=== PATIENT | female | born 1950 | race Caucasian/White ===

== ENCOUNTER 2023-03-24 12:54 | Outpatient (OUT) | payer OTHER, SELFPAY ==
--- NOTE | 2023-03-24 | MM_ITS ---
Patient Name: LEIA EWING MR#: [id number] : 1950 Exam Date: 03/24/2023 Ordering Doctor: DR ASIA ROBBINS . RADIOLOGY REPORT PROCEDURE: MM SCREENING MAMMO BI COMPARISON: MG MAMM SCREEN ALONDRA W CAD, 08/12/2017. INDICATIONS: screening Calculator Name NCI Breast Cancer Risk Assessment Tool 5 Year Breast Cancer Risk 1.40% Lifetime Breast Cancer Risk 3.30% Personal Breast Cancer No Personal Ovarian Cancer No Treatments Excision Family Cancers Grandfather-paternal with acute myel.leukemia cancer at age 80. LOCATION: [facility] BREAST COMPOSITION: Scattered areas fibroglandular density. FINDINGS: DIAGNOSTIC CATEGORY 2--BENIGN FINDING: RIGHT BREAST: No significant suspicious finding. Scattered benign-appearing calcifications are present. No significant change has occurred. LEFT BREAST: No significant suspicious finding. Scattered benign-appearing calcifications are present. No significant change has occurred. RECOMMENDATIONS: ROUTINE MAMMOGRAM AND CLINICAL EVALUATION IN 12 MONTHS. PLEASE NOTE: A NORMAL MAMMOGRAM DOES NOT EXCLUDE THE POSSIBILITY OF BREAST CANCER. A CLINICALLY SUSPICIOUS PALPABLE LUMP SHOULD BE BIOPSIED. Dictated by: Martin Win M.D. on 03/24/2023 at 15:04 Approved by: Martin Win M.D. on 03/24/2023 at 15:05
== END 2023-03-24 12:55 | disposition home or self-care (01) ==
LOC: MAMMO 12:54
PROVIDERS: PCP Family Medicine; Visit Provider Family Medicine
DX: Z12.31 Encounter for screening mammogram for malignant neoplasm of breast (principal); Z80.6 Family history of leukemia
CPT/HCPCS: 77067

== ENCOUNTER 2023-07-12 10:48 | Inpatient (IN) | payer OTHER, SELFPAY ==
[2023-07-12] VITALS (22 sets, daily range): BP systolic 111–150; BP diastolic 55–93; PULSE 86–160; RESP 12–27; TEMP 36.6–37.2; O2SAT 95–100; BMI 36.2
--- OUTSIDE RECORDS SUMMARY | 2023-07-12 10:55 | XMS_ITS | CCD ---
Author Organization [facility] Care Team Providers Care Senior Quantity Surveyor Name Role Phone MD Dario Forman Admit Provider MD Dario Forman Attending Provider [phone] MD Xavier Robbins Primary Care Provider DR XAVIER ROBBINS Primary Care Unavailable FABIANA BECKER Admitting Unavailable FABIANA BECKER Attending Unavailable CHLOÉ DARBY Consulting Unavailable FABIANA BECKER Consulting Unavailable PROVIDER, UNKNOWN Attending Unavailable PROVIDER, UNKNOWN Admitting Unavailable Xavier Robbins Unavailable Unavailable Unavailable Xavier Robbins Primary Care Unavailable Dario Forman Attending Unavailable Dario Forman Admitting Unavailable Dr. Xavier Robbins Primary Care Unava ilmaynor Robbins, Dr. Xavier Lim Primary Care Unava Angela Brandon Attending Unavailable Angela Landry Referring Unavailable Yoselin, Dr. Xavier Lim Primary Care Unava ilAngela Marrero Attending Unavailable Angela Landry Referring Unavailable Yoselin, Dr. Xavier Lim Primary Care Unava ilJanette Alvarez Unavailable Xavier Robbins MD Primary Care Provider ANGELA LANDRY Attending Unavailable XAVIER ROBBINS Primary Care Unavailab MARK Springer Attending Unavailable XAVIER ROBBINS Attending Unavailable XAVIER ROBBINS Attending Unavailable Allergies Allergy Classification Reported Allergen(s) Allergy Type Date of Onset Reaction(s) Facility (3 sources) Neomycin; Translations: [Neomycin] Drug Allergy 2 Unknown Reaction [facility] (8 sources) nickel; Translations: [Nickel] Drug Allergy 3 rash, Swelling [facility] (3 sources) erythromycin base; Translations: [Erythromycin Base] Allergy to substance 2 Unknown Reaction [facility] (4 sources) Azithromycin; Translations: [Azithromycin TABS] Drug Allergy 3 [facility] (1 source) Erythromycin Drug Allergy hives [facility] [employer] Other (1 source) Dasak-Upcsj-Xsil myx-Pramoxine Drug allergy rash,itching [facility] [employer] Other (1 source) Azithromycin; Translations: [AZITHROMYCIN] Drug Allergy 3 [facility] 3 Repository Medications Current Medications Medication Drug Class(es) Dates Sig (Normalized) Sig (Original) [id number] 200 actuat albuterol 0.09 mg/actuat metered dose inhaler (6 sources) beta2-Adrenergic Agonist take 1 puff(s) by inhalation every four hours albuterol 90 mcg/actuation inhaler Inhale 1 puff every 4 hours if needed. 0 Active take 3 mL by inhalat ion every six hours as needed Albuterol Sulfate 0.63 MG/3ML 3 ml as needed Inhalation every 6 hrs uses PRN, J41.0 Not-Taking Albuterol Sulfat e HFA 108 (90 Base) MCG/ACT 2 puffs as needed Inhalation 4 x day prn Not-Taking Aspir-81 (1 source) Aspir-81 *please review for potential _update for e-prescription and drug interaction check* 1 every other day Active aspirin 81 mg chewable tablet (6 sources) Platelet Aggregation Inhibitor, Nonsteroidal Anti-inflammatory Drug Start: 03-14-2022 End: 02-18-2023 aspirin 81 mg chewable tablet Chew 1 tablet (81 mg) once daily. CHEW AND SWALLOW 0 03/14/2022 02/18/2023 Discontinued (Other) take 1 tablet by mouth once jeri y aspirin 81 mg EC tablet Take 1 tablet (81 mg) by mouth once daily. 0 Active atorvastatin 80 mg oral tablet (6 sources) HMG-CoA Reductase Inhibitor Start: 03-14-2022 take 80 mg by mouth once daily in the evening Atorvastatin Active 80 MG PO Every evening March 14, 2022 12:00am calcium carbonate 1250 mg oral tablet (1 source) take 1 tablet by mouth once daily calcium carbonate (Oscal) 500 mg calcium (1,250 mg) tablet Take 1 tablet (1,250 mg) by mouth once daily. 0 Active celecoxib 200 mg oral capsule (5 sources) Nonsteroidal Anti-inflammatory Drug celecoxib (CeleBREX) 200 mg capsule Take by mouth twice a day. With food 0 Active take 1 capsule by [facility] every twenty-four hours Celecoxib 200 MG 1 capsule with food Orally Once a day Active gabapentin 600 mg oral tablet (6 sources) Anti-epileptic Agent Start: 03-13-2022 take 600 mg by mouth at bedtime Gabapentin Active 600 MG PO Bedtime March 13, 2022 12:00am losartan potassium 100 mg oral tablet (6 sources) Angiotensin 2 Receptor Caitlin Start: 08-06-2017 take 100 mg by mouth once daily Losartan Active 100 MG PO Daily March 13, 2022 12:00am metoprolol tartrate 25 mg oral tablet (6 sources) beta-Adrenergic Caitlin Start: 03-14-2022 take 25 mg by mouth twice daily Metoprolol Tartrate Active 25 MG PO Twice daily 60 March 14, 2022 12:00am take 1 capsule by mouth once irish ly Metoprolol Succinate 25 MG 1 capsule Orally Once a day Active montelukast 10 mg oral tablet (6 sources) Leukotriene Receptor Antagonist Start: 03-13-2022 take 10 mg by mouth once daily Montelukast Active 10 MG PO Daily March 13, 2022 12:00am multivitamin tablet (1 source) take 1 tablet by mouth once daily multivitamin tablet Take 1 tablet by mouth once daily. 0 Active Multivitamin Women 50+ - (1 source) Multivitamin Wom en 50+ - Orally Active mupirocin 0.02 mg/mg topical ointment (1 source) RNA Synthetase Inhibitor Antibacterial Start: 12-27-2022 Mupirocin 2 % 1 application Externally Three times a day for 7 days Dec, Active nitroglycerin 0.4 mg sublingual tablet (6 sources) Nitrate Vasodilator Start: 03-14-2022 Nitroglycerin Active 0.4 MG SUBLINGUAL Q5M 30 March 14, 2022 12:00am Nitroglycerin 0. 4 MG as directed Sublingual Active omeprazole 40 mg delayed release oral capsule (1 source) Proton Pump Inhibitor take 1 capsule by mouth once daily Omeprazole 40 MG 1 capsule 30 minutes before morning meal Orally Once a day Active oxybutynin chloride 5 mg oral tablet (6 sources) Cholinergic Muscarinic Antagonist Start: 11-24-202 2 take 5 mg by mouth twice daily Oxybutynin Chloride Active 5 MG PO Twice daily March 13, 2022 12:00am sertraline 100 mg oral tablet (5 sources) Serotonin Reuptake Inhibitor take 1 tablet by mouth once daily sertraline (Zoloft) 100 mg tablet Take 1 tablet (100 mg) by mouth once daily. 0 Active ticagrelor 90 mg oral tablet (6 sources) Start: 2 End: 3 take 1 tablet by mouth twice daily Ticagrelor (Brilinta) 90 mg Tablet Active 90 MG PO Twice daily 60 30 March 14, 2022 12:00am Vitamin C 500 MG (1 source) take 1 tablet by mouth once daily Vitamin C 500 MG 1 tablet Orally Once a day Active Completed/Discontinued Medications Medication Drug Class(es) Dates Sig (Normalized) Sig (Original) amoxicillin 500 mg oral capsule (1 source) Penicillin-class Antibacterial Start: 03-07-2019 Amoxicillin 500 MG 4 capsules one time, take 45 min-1 hr prior to planned dental procedure Orally Once a day for 1 day(s) Feb, Not-Taking docusate sodium 100 mg oral capsule (1 source) take 1 capsule by mouth once daily at bedtime as needed Colace 100 MG take 1 capsule by oral route every day at bedtime as needed Orally Not-Taking ferrous sulfate 325 mg oral tablet (1 source) take 1 tablet by mouth every twenty-four hours Feosol 200 (65 Fe) MG 1 tablet Orally daily Not-Taking Handicap Placard 1 year 1 year (1 source) Start: 01-05-2017 Handicap Placard 1 year 1 year 1 misc daily for 1 year *please review for potential _update for e-prescription and drug interaction check* M54.5 Low Back Pain Dec, Not-Taking Handicap Placard 5 year 5 year (1 source) Start: 10-04-2019 Handicap Placard 5 year 5 year 1 misc daily for 5 year *please review for potential _update for e-prescription and drug interaction check* Sep, Not-Taking Handicap Plaquard 1 (1 source) Start: 03-07-2019 Handicap Plaquard 1 use 1 placard as directed for 6 months for 180 days *please review for potential _update for e-prescription and drug interaction check* Feb, Not-Taking ipratropium bromide 0.2 mg/ml inhalation solution (1 source) Anticholinergic Start: 04-18-2019 take 2.5 mL by inhalation every eight hours as needed Ipratropium [place] 0.02 % 2.5 ml Inhalation every 8 hrs as needed using [facility] [id number], Rx Bin [id number], [id number] Membber ID [id number] Mar, Not-Taking meloxicam 15 mg oral tablet (1 source) Nonsteroidal Anti-inflammatory Drug take 1 tablet by mouth every twenty-four hours Meloxicam 15 MG 1 tablet Orally Once a day for 90 days Not-Taking Niacin (1 source) Nicotinic Acid Start: 02-12-2018 Niacin SR 500 mg as directed daily *please review for potential _update for e-prescription and drug interaction check* 3 daily Jan, Not-Taking Problems Active Problems Problem Classification Problem Date Documented Date Episodic/Chronic Acute myocardial infarction (3 sources) Myocardial infarction; Translations: [ST elevation (STEMI) myocardial infarction involving left circumflex coronary artery] Onset: 03-18-2022 03-13-2022 Chronic Asthma (2 sources) Unspecified asthma, uncomplicated; Translations: [Mild intermittent asthma] Onset: 03-18-2022 Chronic Chronic kidney disease (1 source) Chronic kidney disease stage 2; Translations: [Chronic kidney disease, stage 2 (mild)] Chronic Chronic obstructive pulmonary disease and bronchiectasis (1 source) Simple chronic bronchitis; Translations: [Simple chronic bronchitis] Chronic Coronary atherosclerosis and other heart disease (14 sources) Coronary arteriosclerosis; Translations: [Coronary atherosclerosis of unspecified type of vessel, [place] or graft] Onset: 02-18-2023 02-18-2023 Chronic Coronary atherosclerosis and other heart disease (3 sources) Stented coronary artery; Translations: [Presence of coronary angioplasty implant and graft] Onset: 02-18-2023 03-13-2022 Episodic Disorders of lipid metabolism (5 sources) Hyperlipidemia; Translations: [Other and unspecified hyperlipidemia] Onset: 02-18-2023 02-18-2023 Chronic E Codes: Natural/environment (1 source) Bitten or stung by nonvenomous insect and other nonvenomous arthropods, initial encounter Episodic Essential hypertension (7 sources) Hypertensive disorder; Translations: [Essential (primary) hypertension] Onset: 03-18-2022 03-13-2022 Chronic Genitourinary symptoms and ill-defined conditions (1 source) Urge incontinence of urine; Translations: [Urge incontinence] Chronic Mood disorders (1 source) Recurrent major depression in partial remission; Translations: [Major depressive disorder, recurrent, in partial remission] Chronic Nonspecific chest pain (3 sources) Chest pain, unspecified; Translations: [CHEST PAIN UNSPECIFIED] Onset: 03-13-2022 Episodic Osteoarthritis (2 sources) Inflammation of joints of bilateral shoulder regions; Translations: [Primary osteoarthritis, right shoulder] Chronic Other aftercare (1 source) 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; Translations: [YARDMASTER CURRENT USE OF ASPIRIN] Onset: 03-18-2022 Episodic Other aftercare (1 source) Other m[facility]p (current) drug therapy; Translations: [OTH YARDMASTER CURRENT DRUG THERAPY] Onset: 03-18-2022 Episodic Other connective tissue disease (2 sources) History of repair of hip joint; Translations: [Presence of right artificial hip joint] Chronic Other hereditary and degenerative nervous system conditions (1 source) Restless legs; Translations: [Restless legs syndrome] Chronic Other lower respiratory disease (2 sources) Dyspnea on exertion; Translations: [Shortness of breath] Onset: 02-18-2023 02-18-2023 Episodic Other lower respiratory disease (2 sources) Shortness of breath; Translations: [Shortness of breath] Onset: 02-18-2023 Episodic Other nervous system disorders (1 source) Difficulty walking; Translations: [Difficulty in walking, not elsewhere classified] Chronic Other non-traumatic joint disorders (1 source) Chronic pain of right upper limb; Translations: [Pain in right shoulder] Episodic Other nutritional; endocrine; and metabolic disorders (4 sources) Obesity; Translations: [Obesity, unspecified] Onset: 02-18-2023 02-18-2023 Chronic Other nutritional; endocrine; and metabolic disorders (1 source) Morbid obesity; Translations: [Morbid (severe) obesity due to excess calories] Chronic Other nutritional; endocrine; and metabolic disorders (1 source) Obesity caused by energy imbalance; Translations: [Other obesity due to excess calories] 02-18-2023 Chronic Other nutritional; endocrine; and metabolic disorders (2 sources) Other obesity due to excess calories; Translations: [Other obesity due to excess calories] Onset: 02-18-2023 Chronic Other nutritional; endocrine; and metabolic disorders (2 sources) Body mass index (BMI) 36.0-36.9, adult; Translations: [Body mass index (BMI) 36.0-36.9, adult] Onset: 02-18-2023 Chronic Other upper respiratory disease (1 source) Allergic rhinitis due to pollen; Translations: [Allergic rhinitis due to pollen] Chronic Residual codes; unclassified (1 source) Walking aid use - finding; Translations: [Dependence on other enabling machines and devices] Chronic Residual codes; unclassified (1 source) Do not resuscitate; Translations: [DO NOT RESUSCITATE] Onset: 03-18-2022 Episodic Spondylosis; intervertebral disc disorders; other back problems (3 sources) Disorder of lumbar disc; Translations: [Other intervertebral disc displacement, lumbar region] Chronic Unclassified (1 source) ST elevation (STEMI) myocardial infarction involving left circumflex coronary artery; Translations: [ST elevation (STEMI) myocardial infarction involving left circumflex coronary artery] Onset: 03-13-2022 Past or Other Problems Problem Classification Problem Date Documented Da te Episodic/Chronic Unclassified (3 sources) Never smoked tobacco; Translations: [Never a smoker] Unclassified (1 source) Onset: 02-18-2023 02-18-2023 Results Test Name Value Interpretation Reference Range Facility Office Visit (Cardiology)on 08-20-2022 Follow-up visit Diagnoses/Problems Assessed ASHD (arteriosclerotic heart disease) (414.00) (I25.10) Status post insertion of drug eluting coronary artery stent (V45.82) (Z95.5) History of myocardial infarction (412) (I25.2) Hyperlipidemia (272.4) (E78.5) Hypertension (401.9) (I10) Never a smoker Class 2 obesity with body mass index (BMI) of 36.0 to 36.9 in adult (278.00,V85.36) (E66.9,Z68.36) Orders Class 2 obesity with body mass index (BMI) of 36.0 to 36.9 in adult Healthy Weight Tips; Status:Complete - Retrospective Authorization; Done: 20Aug2022 Some eating tips that can help you lose weight.; Status:Complete - Retrospective Authorization; Done: 20Aug2022 SocHx: Never a smoker Tobacco Use Screening; Status:Complete; Done: [id number] Patient Instructions Please bring all medicines, vitamins, and herbal supplements with you when you come to the office. Prescriptions will not be filled unless you are compliant with your follow up appointments or have a follow up appointment scheduled as per instruction of your physician. Refills should be requested at the time of your visit. Follow up in [6 ] months Chief Complaint LEIA EWING is being seen for a 6 month follow-up of. 71-year-old female returns for follow-up and doing well she has no cardiovascular complaints. She denies angina or nitrate usage or recurrent hospitalizations. She sustained inferior UT in February 2022 around [facility], underwent primary PCI of the third OM branch with drug-eluting stent without complications. She remains on appropriate guideline directed medical therapies as reviewed. She has underlying obesity, mild ambulatory disability and ambulates with cane but with no falls. She remains independent She has no hospitalizations or heart failure or syncope. Recommendations, continue current therapies follow-up in 6 months Surgical History Problems History of Complete colonoscopy 2019 History of Hip replacement Current Meds Medication NameInstruction Albuterol Sulfate HFA 108 (90 Base) MCG/ACT Inhalation Aerosol SolutionINHALE 1 PUFF EVERY 4 HOURS NEEDED. Aspirin EC 81 MG Oral Tablet Delayed ReleaseTAKE 1 TABLET DAILY. Atorvastatin Calcium 80 MG Oral TabletTAKE 1 TABLET DAILY. Brilinta 90 MG Oral TabletTAKE 1 TABLET TWICE DAILY. Celecoxib 200 MG Oral CapsuleTAKE 1 CAPSULE TWICE DAILY WITH FOOD. Gabapentin 600 MG Oral TabletTAKE 1 TABLET AT BEDTIME. Losartan Potassium 100 MG Oral TabletTAKE 1 TABLET DAILY. Metoprolol Tartrate 25 MG Oral TabletTAKE 1 TABLET TWICE DAILY. Montelukast Sodium 10 MG Oral TabletTAKE 1 TABLET AT BEDTIME. Nitroglycerin 0.[address] 1 TABLET UNDER THE TONGUE EVERY 5 MINUTES FOR UP TO 3 DOSES NEEDED FOR CHEST PAIN.CALL 911 IF PAIN PERSISTS. Oxybutynin Chloride 5 MG Oral TabletTake 1 tablet twice daily Sertraline HCl - 100 MG Oral TabletTAKE 1 TABLET DAILY. Allergies Medication Azithromycin TABS Allergy; hives; Recorded By: Gavin Rose; 03/27/2022 8:49:28 AM NonMedication Nickel Recorded By: Arline Delong; 08/20/2022 11:16:45 AM Social History Problems Caffeine use (V49.89) (Z78.9) Never a smoker No illicit drug use Social alcohol use (V49.89) (Z78.9) Review of Systems Constitutional: not feeling tired. Cardiovascular: no intermittent leg claudication and as noted in HPI. Respiratory: no cough and no shortness of breath. Gastrointestinal: no change in bowel habits and no blood in stools. Integumentary: no skin rashes. Neurological: no seizures and no frequent falls. All other systems have been reviewed and are negative for complaint. Vitals Vital Signs Recorded: 20Aug2022 11:17AM Heart Rate68, L Radial [id number], LUE, Sitting [id number], LUE, Sitting Height5 ft 9 in [id number] lb BMI Jfkiziliyp18.18 kg/m2 BSA Calculated2.25 Tobacco Useb) No PHQ-2 Patient Declined/Screening not indicatedYes Falls Screening (Age 18+)a) No falls within the last year Physical Exam Constitutional: alert and in no acute distress. Neck: neck is supple, symmetric, trachea midline, no masses and no thyromegaly . Pulmonary: no increased work of breathing or signs of respiratory distress and lungs clear to auscultation. Cardiovascular: carotid pulses 2+ bilaterally with no bruit , JVP was normal, no thrills , regular rhythm, normal S1 and S2, no murmurs , pedal pulses 2+ bilaterally and no edema . Abdomen: abdomen non-tender, no masses and no hepatomegaly . Skin: skin warm and dry, normal skin turgor . Psychiatric judgment and insight is normal and oriented to person, place and time . Signatures Electronically signed by : Angela Landry DO; Aug 20 2022 12:32PM EST (Author) Normal [facility] Tobacco Screening.on 023 Fall risk assessment a) No falls within the last year -[facility] [address] DO Work Phone: Tobacco use status [facility] b) No M [facility] [address] DO Work Phone: Tobacco Screening. Yes [facility] [address] DO Work Phone: Office Visit (Cardiology)on 03-27-2022 Follow-up visit Diagnoses/Problems Assessed ASHD (arteriosclerotic heart disease) (414.00) (I25.10) History of myocardial infarction (412) (I25.2) Status post insertion of drug eluting coronary artery stent (V45.82) (Z95.5) Hyperlipidemia (272.4) (E78.5) Hypertension (401.9) (I10) Class 2 obesity with body mass index (BMI) of 36.0 to 36.9 in adult (278.00,V85.36) (E66.9,Z68.36) Never a smoker Orders ASHD (arteriosclerotic heart disease), History of myocardial infarction, Status post insertion of drug eluting coronary artery stent Cardiac Rehab Referral Evaluation and Treatment Evaluate AND Treat Status: Hold For - Scheduling,Retrospec tive Authorization Requested for: [id number] Agreement : I agree to have my patient participate in the phase III outpatient cardiac rehabilitation program after completion of the phase II program. Consent : I consent to have my patient participate in the cardiac rehabilitation program. I will continue regular medical care of my patient throughout his/her participation in the program. Individualized Treatment Plan and Exercise Prescription : Defer the patients ITP and exercise prescription to be developed by the staff for your review and approval I authorize the Cardiac Rehabilitation Department to : Current lab values are helpful in order to assess the lipid status and individualize diet therapy. A venous blood sample will be drawn and lipids analyzed at the laboratory I authorize the Cardiac Rehabilitation Department to : Schedule a symptom limited graded exercise test with 12 lead ECG prior to starting cardiac rehabilitation and at discharge, if needed. Class 2 obesity with body mass index (BMI) of 36.0 to 36.9 in adult Healthy Weight Tips; Status:Complete - Retrospective Authorization; Done: [id number] Some eating tips that can help you lose weight.; Status:Complete - Retrospective Authorization; Done: [id number] SocHx: Never a smoker Tobacco Use Screening; Status:Complete; Done: [id number] Patient Instructions Please bring all medicines, vitamins, and herbal supplements with you when you come to the office. Prescriptions will not be filled unless you are compliant with your follow up appointments or have a follow up appointment scheduled as per instruction of your physician. Refills should be requested at the time of your visit. Fall prevention education given Cardiac [place] at [facility]. I recommend Omeprazole 20 mg Over the counter to help with protecting stomach. Or Zantac over the counter. Follow up in 6 months Chief Complaint LEIA EWING is being seen for follow-up of a hospitalization for. 71-year-old female follows up with me for the first time following recent inferolateral ST elevation UT in February 2022 with primary PCI of the third marginal branch performed by Dr. Dario Grossman. She has mild LV dysfunction, underlying hyperlipidemia, hypertension and obesity and limited ambulatory ability due to severe osteoarthritis. She remains on appropriate guideline directed medical therapies, is asymptomatic has had no recurrent hospitalizations, angina, heart failure or arrhythmias. Recommendations: Continue current therapies, enroll in cardiac rehab if she is able to complete those type of exercises given her disability, otherwise follow-up in 6 months Current Meds Medication NameInstruction Albuterol Sulfate HFA 108 (90 Base) MCG/ACT Inhalation Aerosol SolutionINHALE 1 PUFF EVERY 4 HOURS NEEDED. Aspirin EC 81 MG Oral Tablet Delayed ReleaseTAKE 1 TABLET DAILY. Atorvastatin Calcium 80 MG Oral TabletTAKE 1 TABLET DAILY. Brilinta 90 MG Oral TabletTAKE 1 TABLET TWICE DAILY. Celecoxib 200 MG Oral CapsuleTAKE 1 CAPSULE TWICE DAILY WITH FOOD. Gabapentin 600 MG Oral TabletTAKE 1 TABLET AT BEDTIME. Losartan Potassium 100 MG Oral TabletTAKE 1 TABLET DAILY. Metoprolol Tartrate 25 MG Oral TabletTAKE 1 TABLET TWICE DAILY. Montelukast Sodium 10 MG Oral TabletTAKE 1 TABLET AT BEDTIME. Nitroglycerin 0.4 [address]ual Tablet SublingualPL[address] 1 TABLET UNDER THE TONGUE EVERY 5 MINUTES FOR UP TO 3 DOSES NEEDED FOR CHEST PAIN.CALL 911 IF PAIN PERSISTS. Oxybutynin Chloride 5 MG Oral TabletTake 1 tablet twice daily Sertraline HCl - 100 MG Oral TabletTAKE 1 TABLET DAILY. Allergies Medication Azithromycin TABS Allergy; hives; Recorded By: Gavin Rose; 03/27/2022 8:49:28 AM Social History Problems Never a smoker Review of Systems Constitutional: not feeling tired. Cardiovascular: no intermittent leg claudication and as noted in HPI. Respiratory: no cough and no shortness of breath. Gastrointestinal: no change in bowel habits and no blood in stools. Integumentary: no skin rashes. Neurological: no seizures and no frequent falls. All other systems have been reviewed and are negative for complaint. Vitals Vital Signs Recorded: [id number] 08:53AM Heart Rate78, R Radial [id number], LUE, Sitting [id number], LUE, Sitting Height5 ft 9 in [id number] lb (more content not included)... Normal [facility] Tobacco Screening.on 022 Adult depression screening assessment Yes [facility] DO Work Phone: Adult depression screening assessment No [facility] [address] DO Work Phone: Fall risk assessment b) One or more fall s in the last year [facility] [address] DO Work Phone: Tobacco use status [facility] b) No M [facility] [address] DO Work Phone: Basophils Auto (Bld) [#/Vol] Ordered By: Dario Forman on 03-14-2022 Basophils (Bld) [#/Vol] 0.0 10*3/uL 0.0-0.2 [facility] Basophils/100 WBC Auto (Bld) Ordered By: Dario Forman on 03-14-2022 Basophils/100 WBC (Bld) 0.3 % . F [facility] Body fluid albumin measureme nt (mass/volume)Ordered By: Dario Forman on 03-14-2022 Albumin (Body fld) [Mass/Vol] 3.4 g/dL 3.2-5.5 [facility] Complete Blood Count Auto Di ffon 03-14-2022 Basophils (Bld) [#/Vol] 0.0 10*3/uL Normal 0.0-0.2 [facility] Comment on above: Result Comment: PERF ORMED BY: [place] [address] PATHOLOGIST FRONT OFFICE ASSISTANT DEE SEGUNDO M.D. Performed By: #### C MP, CBC #### [facility] [address] [place] [address] [place] Basophils/100 WBC (Bld) 0.3 % Normal . [facility] Comment on above: Performed By: #### C MP, CBC #### [facility] [address] [place] [address] [place] Eosinophils (Bld) [#/Vol] 0.1 10*3/uL Normal 0.0-0.45 [facility] Comment on above: Performed By: #### C MP, CBC #### [address] Eosinophils/100 WBC (Bld) 0.7 % Normal . [facility] Comment on above: Performed By: #### C MP, CBC #### [address] Erythrocyte distribution width (RBC) [Ratio] 14.3 % Normal 11.9-15.3 [facility] Comment on above: Performed By: #### C MP, CBC #### [address] Hematocrit (Bld) [Volume fraction] 37.1 % Normal 34.0-46.4 [facility] Comment on above: Performed By: #### C MP, CBC #### [address] Hemoglobin (Bld) [Mass/Vol] 12.0 g/dL Normal 11.8-15.4 [facility] Comment on above: Performed By: #### C MP, CBC #### [address] Lymphocytes (Bld) [#/Vol] 1.1 10*3/uL Normal 1.00-4.8 [facility] Comment on above: Performed By: #### C MP, CBC #### [address] Lymphocytes/100 WBC (Bld) 8.8 % Normal . [facility] Comment on above: Performed By: #### C MP, CBC #### [address] MCH (RBC) [Entitic mass] 29.6 pg Normal 24.7-34.3 [facility] Comment on above: Performed By: #### C MP, CBC #### [address] MCV (RBC) [Entitic vol] 91.7 fL Normal 80-100 [facility] Comment on above: Performed By: #### C MP, CBC #### [facility] [address] Mean Corpuscular HGB Conc 32.3 g/dL Normal 32.0-35.0 [facility] Comment on above: Performed By: #### C MP, CBC #### [facility] [address] [place] [address] [place] Monocytes (Bld) [#/Vol] 1.3 10*3/uL High 0.0-0.8 [facility] Comment on above: Performed By: #### C MP, CBC #### [facility] [address] [place] [address] [place] Monocytes/100 WBC (Bld) 10.2 % Normal . [facility] Comment on above: Performed By: #### C MP, CBC #### [facility] [address] Neutrophils (Bld) [#/Vol] 10.1 10*3/uL High 1.8-7.7 [facility] Comment on above: Performed By: #### C MP, CBC #### [facility] [address] [place] [address] [place] Neutrophils/100 WBC (Bld) 80.0 % Normal . [facility] Comment on above: Performed By: #### C MP, CBC #### [facility] [address] [place] [address] [place] Nucleated RBC/100 WBC (Bld) [Ratio] 0.0 % Normal 0-0.5 [facility] Comment on above: Performed By: #### C MP, CBC #### [facility] [address] [place] [address] [place] Platelet mean volume (Bld) [Entitic vol] 9.0 fL Normal 6.3-10.7 [facility] Comment on above: Performed By: #### C MP, CBC #### [facility] [address] [place] [address] [place] Platelets (Bld) [#/Vol] 258 10*3/uL Normal 150-450 [facility] Comment on above: Performed By: #### C MP, CBC #### [facility] [address] [place] [address] RBC (Bld) [#/Vol] 4.05 10*6/uL Normal 3.60-5.00 [facility] Comment on above: Performed By: #### C MP, CBC #### [address] WBC (Bld) [#/Vol] 12.6 10*3/uL High 4.5-11.0 [facility] Comment on above: Performed By: #### C MP, CBC #### [address] Comprehensive Metabolic Pane juan m 03-14-2022 Albumin [Mass/Vol] 3.4 g/dL Normal 3.2-5.5 [facility] Comment on above: Performed By: #### C MP, CBC #### [address] Albumin/Globulin [Mass ratio] 1.4 {ratio} Normal [facility] Comment on above: Performed By: #### C MP, CBC #### [address] ALP [Catalytic activity/Vol] 77 U/L Normal 32-92 [facility] Comment on above: Performed By: #### C MP, CBC #### [address] ALT [Catalytic activity/Vol] 24 U/L Normal 10-60 [facility] Comment on above: Performed By: #### C MP, CBC #### [address] Anion gap [Moles/Vol] 12.9 mmol/L Normal 6.0-15.0 [facility] Comment on above: Performed By: #### C MP, CBC #### [address] AST [Catalytic activity/Vol] 90 U/L High 10-42 [facility] Comment on above: Performed By: #### C MP, CBC #### [facility] [address] [place] [address] [place] Bilirubin [Mass/Vol] 0.9 mg/dL Normal 0.3-1.2 [facility] Comment on above: Performed By: #### C MP, CBC #### [facility] [address] [place] [address] [place] Calcium [Mass/Vol] 9.3 mg/dL Normal 8.2-10.2 [facility] Comment on above: Performed By: #### C MP, CBC #### [facility] [address] [place] [address] [place] Chloride [Moles/Vol] 108 mmol/L Normal 95-114 [facility] Comment on above: Performed By: #### C MP, CBC #### [facility] [address] CO2 [Moles/Vol] 22.3 mmol/L Normal 22.0-30.0 [facility] Comment on above: Performed By: #### C MP, CBC #### [facility] [address] [place] [address] [place] Creatinine [Mass/Vol] 0.99 mg/dL Normal 0.44-1.03 [facility] Comment on above: Performed By: #### C MP, CBC #### [facility] [address] [place] [address] [place] Creatinine Clr Calc Pharmacy 68.42 [facility] Comment on above: Result Comment: PERF ORMED BY: [place] [address] PATHOLOGIST FRONT OFFICE ASSISTANT DEE SEGUNDO M.D. Performed By: #### C MP, CBC #### [facility] [address] Estimated GFR ( [place] > 60 [facility] Comment on above: Result Comment: GFR estimated reference range: According to KDOQI guidelines, <60 ml/min/1.73m2 is sufficient to diagnose a patient with chronic kidney disease. Performed By: #### C MP, CBC #### [facility] [address] Estimated GFR (Non- Am 55 Normal [facility] Comment on above: Performed By: #### C MP, CBC #### [facility] [address] Globulin (S) [Mass/Vol] 2.5 g/dL Normal F [facility] Comment on above: Performed By: #### C MP, CBC #### [facility] [address] Glucose [Mass/Vol] 112 mg/dL High 70-100 [facility] Comment on above: Result Comment: [facility] [place] Glucose Reference Range is dependent on time and content of last meal. Glucose of more than 200 mg/dL in a nonstressed, ambulatory subject supports the diagnosis of Diabetes Mellitus. ADA recommended reference range Performed By: #### C MP, CBC #### [address] Potassium [Moles/Vol] 4.2 mmol/L Normal 3.5-5.1 [facility] Comment on above: Performed By: #### C MP, CBC #### [address] Protein [Mass/Vol] 5.9 g/dL Low 6.1-7.9 [facility] Comment on above: Performed By: #### C MP, CBC #### [address] Sodium [Moles/Vol] 139 mmol/L Normal 136-146 [facility] Comment on above: Performed By: #### C MP, CBC #### [address] Urea nitrogen [Mass/Vol] 17 mg/dL Normal 9-23 [facility] Comment on above: Performed By: #### C MP, CBC #### [address] Creatinine and Glomerular fi ltration rate.predicted panel (S/P/Bld)Ordered By: Dario Forman on 03-14-2022 Creatinine [Mass/Vol] 0.99 mg/dL 0.44-1.03 Fir [facility] ECG 12 lead ECGon 03-14-2022 ECG 12 [place] [address] Electrocardiograph Report Signed Patient: Leia Ewing MR#: [id number] : 1950 Acct:[id number] Age/Sex: 71 / F ADM Date: 03/13/22 Loc: Room: [address] [place] [address] Type: DIS IN Attending Dr: Dario Forman MD Ordering Provider: Dario Forman MD Date of Service: 03/14/22 ECG/ECG 12 lead ECG: Post Angioplasty Procedure in AM Copies to: Test Reason : Blood Pressure : / mmHG Vent. Rate : 071 BPM Atrial Rate : 071 BPM P-R Int : 162 ms QRS Dur : 082 ms QT Int : 416 ms P-R-T Axes : 057 -05 057 degrees QTc Int : 452 ms Normal sinus rhythm Normal ECG When compared with ECG of 13-MAR-2022 14:10, (Unconfirmed) No significant change was found Confirmed by [id number] on 03/14/2022 11:13:29 AM Referred By: Electronically Signed By:BRIDGET PALMA MD [facility] Transcribed By: MUS Signed By Angela Palma MD 03/14/[address] [place] [address] E[facility] echo transthoracicon E[facility] echo transthoracic [facility] [address] [place] [id number] Echocardiogram Signed Patient: Leia Ewing MR#: [id number] : 1950 Acct:[id number] Age/Sex: 71 / F ADM Date: 03/13/22 Loc: Room: [address] [place] [address] Type: DIS IN Attending Dr: Dario Forman MD Ordering Provider: Dario Forman MD Date of Service: 03/14/22 ECH/ECH echo transthoracic: STEMI Copies to: Alexandria Mosher MD, [facility] Dario Forman MD BSA: 2.3 m2 BP: 163/75 mmHg HR: 59 Reason For Study: STEMI History: PCI (03/13/22). HTN. COPD. Interpretation Summary Mild concentric left ventricular hypertrophy. Left ventricular systolic function is normal. Ejection Fraction = 60-65%. Mild basal inferior wall hypokinesis There is no prior echocardiogram noted for this patient. Procedure/Quality: A two-dimensional transthoracic echocardiogram with color flow and Doppler was performed. The study was technically good in quality. There is no prior echocardiogram noted for this patient. Left Ventricle: Mild concentric left ventricular hypertrophy. Left ventricular systolic function is normal. Ejection Fraction = 60-65%. Mild basal inferior wall hypokinesis. Left Atrium: The left atrium appears normal in size. The atrial septum appears normal. Right Atrium: The right atrium appears normal in size. Right Ventricle: The right ventricular size, thickness and function are normal. Mitral Valve: The mitral valve is mildly sclerotic. Tricuspid Valve: The tricuspid valve is normal. Pulmonic Valve: The pulmonic valve is not well seen, but is grossly normal. Arteries: The aortic root is normal size. Pericardium/Pleura: No pericardial effusion seen. There is no pleural effusion. IVC/Hepatic Viens: Mildly dilated inferior vena cava. Miscellaneous: No thrombus, vegetation or mass is seen. Measurements with Normals IVSd: 1.3 cm (0.7-1.1 cm)LVIDd: 4.8 cm (3.7-5.4 cm) LVPWd: 1.4 cm (0.7-1.1 cm)LVIDs: 2.8 cm (2.3-3.6 cm) LA dimension: 3.7 cm (2.3-4.0 cm)Ao root diam: 3.5 cm(2.0-3.6 cm) asc Aorta Diam: 3.6 cm(2.1-3.4cm) Doppler with Normals LV V1 max: 83.6 cm/sec (0.7-1.7m/s)MV E max frank: 80.1 cm/sec(0.8-1.3m/s) MV A max frank: 62.6 cm/sec(0.0-0.0m/s) MV E/A: 1.3 (<1.5) MMode/2D Measurements Calculations TAPSE: 2.0 cm FS: 40.8 % Ao root area: LVOT diam: 2.0 cm RV S Frank: EDV(Teich): 9.5 cm2 LVOT area: 3.2 cm2 13.0 cm/sec 105.0 ml ESV(Teich): 29.9 ml EF(Teich): 71.5 % __ LVLd ap4: 6.3 cm SV(MOD-sp4): LAV(MOD-sp4): LA A2 area: 17.0 cm2 EDV(MOD-sp4): 49.8 ml 34.1 ml 71.8 ml LAV(MOD-sp2): LA A4 area: 13.6 cm2 LVLs ap4: 5.3 cm 40.8 ml LA length (vol): ESV(MOD-sp4): 4.2 cm 22.0 ml LA vol: 46.5 ml EF(MOD-sp4): 69.4 % LA vol index: 20.4 ml/m2 Doppler Measurements Calculations MV dec time: E/E' lat: 10.2 MV dec slope: Ao V2 max: 0.26 sec E/E' med: 10.3 114.0 cm/sec 305.0 cm/sec2 Ao max P.2 mmHg Ao mean P.2 mmHg Ao V2 mean: 83.8 cm/sec Ao V2 VTI: 23.9 cm FALGUNI(I,D): 2.3 cm2 FALGUNI(V,D): 2.3 cm2 __ LV V1 max PG: RAP systole: 2.8 mmHg 8.0 mmHg LV V1 mean P.7 mmHg LV V1 mean: 62.3 cm/sec LV V1 VTI: 17.3 cm Transcribed By: SCV Performed At: 03/14/22 1028 Signed By: Alexandria Mosher MD, [facility] 03/14/22 1238 Normal [facility] Eosinophils Auto (Bld) [#/Vo l]Ordered By: Dario Forman on 03-14-2022 Eosinophils (Bld) [#/Vol] 0.1 10*3/uL 0.0-0.45 [facility] Eosinophils/100 WBC Auto (Bl d)Ordered By: Dario Forman on 03-14-2022 Eosinophils/100 WBC (Bld) 0.7 % . [facility] Erythrocyte distribution wid th Auto (RBC) [Ratio]Ordered By: Dario Forman on 03-14-2022 Erythrocyte distribution width (RBC) [Ratio] 14.3 % 11.9-15.3 [facility] Estimated glomerular filtrat ion rate (GFR) non- AmericanOrdered By: Dario Forman on 03-14-2022 GFR/1.73 sq M.predicted among non-blacks MDRD (S/P/Bld) [Vol rate/Area] 55 mL/Min [facility] Globulin Calc (S) [Mass/Vol] Ordered By: Dario Forman on 03-14-2022 Globulin (S) [Mass/Vol] 2.5 g/dL F [facility] Hematocrit Auto (Bld) [Volum e fraction]Ordered By: Dario Forman on 03-14-2022 Hematocrit (Bld) [Volume fraction] 37.1 % 34.0-46.4 [facility] Hemoglobin [Mass/volume] in BloodOrdered By: Dario Forman on 03-14-2022 Hemoglobin (Bld) [Mass/Vol] 12.0 g/dL 11.8-15.4 [facility] Laboratory - Hematology and Cell countsOrdered By: Dario Forman on 03-14-2022 Nucleated RBC/100 WBC (Bld) [Ratio] 0.0 % 0-0.5 [facility] Leukocytes [#/volume] in Blo od by Automated countOrdered By: Dario Forman on 03-14-2022 WBC (Bld) [#/Vol] 12.6 10*3/uL 4.5-11.0 [facility] Lymphocytes Auto (Bld) [#/Vo l]Ordered By: Dario Forman on 03-14-2022 Lymphocytes (Bld) [#/Vol] 1.1 10*3/uL 1.00-4.8 [facility] Lymphocytes/100 WBC Auto (Bl d)Ordered By: Dario Forman on 03-14-2022 Lymphocytes/100 WBC (Bld) 8.8 % . [facility] MCH Auto (RBC) [Entitic mass ]Ordered By: Dario Forman on 03-14-2022 MCH (RBC) [Entitic mass] 29.6 pg 24.7-34.3 [facility] MCHC Auto (RBC) [Mass/Vol]Or dered By: Dario Forman on 03-14-2022 MCHC (RBC) [Mass/Vol] 32.3 g/dL 32.0-35.0 Fir [facility] MCV Auto (RBC) [Entitic vol] Ordered By: Dario Forman on 03-14-2022 MCV (RBC) [Entitic vol] 91.7 fL 80-100 F [facility] Monocytes Auto (Bld) [#/Vol] Ordered By: Dario Forman on 03-14-2022 Monocytes (Bld) [#/Vol] 1.3 10*3/uL 0.0-0.8 [facility] Monocytes/100 WBC Auto (Bld) Ordered By: Dario Forman on 03-14-2022 Monocytes/100 WBC (Bld) 10.2 % . F [facility] Neutrophils Auto (Bld) [#/Vo l]Ordered By: Dario Forman on 03-14-2022 Neutrophils (Bld) [#/Vol] 10.1 10*3/uL 1.8-7.7 [facility] Neutrophils/100 WBC Auto (Bl d)Ordered By: Dario Forman on 03-14-2022 Neutrophils/100 WBC (Bld) 80.0 % . [facility] No Panel InformationOrdered By: Dario Forman on 03-14-2022 Estimated GFR () > 60 mL/Min [facility] Comment on above: GFR estimated refere nce range: According to KDOQI guidelines, <60 ml/min/1.73m2 is sufficient to diagnose a patient with chronic kidney disease. Pharmacy Creatinine Clearance (Chem 68.42 [facility] Platelet mean volume Auto (B ld) [Entitic vol]Ordered By: Dario Forman on 03-14-2022 Platelet mean volume (Bld) [Entitic vol] 9.0 fL 6.3-10.7 [facility] Platelets Auto (Bld) [#/Vol] Ordered By: Dario Forman on 03-14-2022 Platelets (Bld) [#/Vol] 258 10*3/uL 150-450 [facility] Protein [Mass/volume] in Ser um or PlasmaOrdered By: Dario Forman on 03-14-2022 Protein [Mass/Vol] 5.9 g/dL 6.1-7.9 [facility] RBC Auto (Bld) [#/Vol]Ordere d By: Dario Forman on 03-14-2022 RBC (Bld) [#/Vol] 4.05 10*6/uL 3.60-5.00 [facility] Serum or plasma alanine mathis otransferase measurement without P-5'-P (enzymatic activiOrdered By: Dario Forman on 03-14-2022 ALT No additional P-5'-P [Catalytic activity/Vol] 24 U/L 1060 [facility] Serum or plasma albumin/glob ulin mass ratioOrdered By: Dario Forman on 03-14-2022 Albumin/Globulin [Mass ratio] 1.4 {ratio} [facility] Serum or plasma alkaline shubham sphatase measurement (enzymatic activity/volume)Ordered By: Dario Forman on 03-14-2022 ALP [Catalytic activity/Vol] 77 U/L 32-92 [facility] Serum or plasma anion gap de terminationOrdered By: Dario Forman on 03-14-2022 Anion gap [Moles/Vol] 12.9 mmol/L 6.0-15.0 [facility] Serum or plasma aspartate am inotransferase measurement (enzymatic activity/volume)Ordered By: Dario Forman on 03-14-2022 AST [Catalytic activity/Vol] 90 U/L 10-42 [facility] Serum or plasma calcium akash urement (mass/volume)Ordered By: Dario Forman on 03-14-2022 Calcium [Mass/Vol] 9.3 mg/dL 8.2-10.2 [facility] Serum or plasma chloride michele surement (moles/volume)Ordered By: Dario Forman on 03-14-2022 Chloride [Moles/Vol] 108 mmol/L 95-114 [facility] Serum or plasma glucose akash urement (mass/volume)Ordered By: Dario Forman on 03-14-2022 Glucose [Mass/Vol] 112 mg/dL 70-100 [facility] Comment on above: ADA recommended refe rence rangeRandom Glucose Reference Range is dependent on time and content of last meal. Glucose of more than 200 mg/dL in a nonstressed, ambulatory subject supports the diagnosis of Diabetes Mellitus. Serum or plasma potassium me asurement (moles/volume)Ordered By: Dario Forman on 03-14-2022 Potassium [Moles/Vol] 4.2 mmol/L 3.5-5.1 [facility] Serum or plasma sodium measu rement (moles/volume)Ordered By: Dario Forman on 03-14-2022 Sodium [Moles/Vol] 139 mmol/L 136-146 [facility] Serum or plasma total biliru bin measurement (mass/volume)Ordered By: Dario Forman on 03-14-2022 Bilirubin [Mass/Vol] 0.9 mg/dL 0.3-1.2 [facility] Serum or plasma total carbon dioxide measurement (moles/volume)Ordered By: Dario Forman on 03-14-2022 CO2 [Moles/Vol] 22.3 mmol/L 22.0-30.0 [facility] Serum or plasma urea nitroge n measurement (mass/volume)Ordered By: Dario Forman on 03-14-2022 Urea nitrogen [Mass/Vol] 17 mg/dL - [facility] BNPon 03-13-2022 Natriuretic peptide B (Bld) [Mass/Vol] 281.0 pg/mL Normal <=900.0 [facility] Comment on above: Performed By: #### B STORE OPERATIONS SPECIALIST, CMP, CMADM #### [facility] [address] [place] [address] [address] Abimael Floyd CARDIAC ANA ADMITon 022 CK [Catalytic activity/Vol] 72 U/L Normal 26-192 [facility] Comment on above: Performed By: #### B STORE OPERATIONS SPECIALIST, CMP, CMADM #### [facility] [address] [place] [address] Dr. Abimael Floyd CK.MB [Mass/Vol] 5.23 ng/mL Critically high <=3.60 [facility] Comment on above: Performed By: #### B STORE OPERATIONS SPECIALIST, CMP, CMADM #### [facility] [address] [place] [address] Dr. Abimael Floyd HSTROP 729.5 pg/mL Critically high 4.0-51.3 [facility] Comment on above: Result Comment: CUT- OFF POINTS HAVE BEEN ESTABLISHED BASED ON THE FOURTH UNIVERSAL DEFINITIONS OF MYOCARDIAL INFARCTION. THE UPPER REFERENCE LIMIT (URL) OF TROPONIN, DEFINED THE 99TH PERCENTILE OF cTnI DISTRIBUTION IN A REFERENCE POPULATION, HAS BEEN CONFIRMED THE DECISION THRESHOLD FOR UT DIAGNOSIS. Performed By: #### B STORE OPERATIONS SPECIALIST, CMP, CMADM #### [facility] [address] [place] [address] Dr. Abimael Floyd BRITTANY 111 ng/mL Critically high 9-82 [facility] Comment on above: Performed By: #### B STORE OPERATIONS SPECIALIST, CMP, CMADM #### [facility] [address] [place] [address] Dr. Abimael Floyd CBC AUTO DIFFon 03-13-2022 BASO # 0.1 103/ul Normal 0.0-0.1 [facility] Comment on above: Performed By: #### C BC #### [facility] [address] [place] [address] Dr. Abimael Floyd Basophils/100 WBC (Bld) 0.5 % Normal 0.2-2.0 [facility] Comment on above: Performed By: #### C BC #### [facility] [address] [place] [address] Dr. Abimael Floyd EO # 0.2 103/ul Normal 0.0-0.7 [facility] Comment on above: Performed By: #### C BC #### [facility] [address] [place] [address] Dr. Abimael Floyd Eosinophils/100 WBC (Bld) 1.4 % Normal 0.9-7.0 [facility] Comment on above: Performed By: #### C BC #### [facility] [address] [place] [address] Dr. Abimael Floyd Erythrocyte distribution width (RBC) [Ratio] 13.9 % Normal 11.0-15.0 [facility] Comment on above: Performed By: #### C BC #### [facility] [address] [place] [address] Dr. Abimael Floyd Hematocrit (Bld) [Volume fraction] 39.3 % Normal 36.0-48.0 [facility] Comment on above: Performed By: #### C BC #### [facility] [address] [place] [address] Dr. Abimael Floyd Hemoglobin (Bld) [Mass/Vol] 12.9 g/dL Normal 12.0-16.0 [facility] Comment on above: Performed By: #### C BC #### [facility] [address] [place] [address] Dr. Abimael Floyd IG # 0.03 10e3/ul Normal 0.00-0.03 [facility] Comment on above: Performed By: #### C BC #### [facility] [address] [place] [address] Dr. Abimael Floyd IG % 0.2 % Normal 0.0-0.5 [facility] Comment on above: Performed By: #### C BC #### [facility] [address] [place] [address] Dr. Abimael Floyd LYMPH # 1.1 103/ul Critically low 1.2-3.8 [facility] Comment on above: Performed By: #### C BC #### [facility] [address] [place] [address] Dr. Abimael Floyd Lymphocytes/100 WBC (Bld) 8.3 % Critically low 20.5-60.0 [facility] Comment on above: Performed By: #### C BC #### [facility] [address] [place] [address] Dr. Abimael Floyd MANUAL DIFF REQ NO Normal [facility] Comment on above: Performed By: #### C BC #### [facility] [address] [place] [address] Dr. Abimael Floyd MCH (RBC) [Entitic mass] 30.0 pg Normal 26.7-34.0 [facility] Comment on above: Performed By: #### C BC #### [facility] [address] [place] [address] Dr. Abimael Floyd MCHC (RBC) [Mass/Vol] 32.8 g/dL Normal 29.9-35.2 [facility] Comment on above: Performed By: #### C BC #### [facility] [address] [place] [address] Dr. Abimael Floyd MCV (RBC) [Entitic vol] 91.4 fL Normal 81.0-99.0 [facility] Comment on above: Performed By: #### C BC #### [facility] [address] [place] [address] Dr. Abimael Floyd MONO # 0.9 103/ul Critically high 0.3-0.8 [facility] Comment on above: Performed By: #### C BC #### [facility] [address] [place] [address] Dr. Abimael Floyd Monocytes/100 WBC (Bld) 6.8 % Normal 1.7-12.0 [facility] Comment on above: Performed By: #### C BC #### [facility] [address] [place] [address] Dr. Abimael Floyd NEUT # 10.5 103/ul Critically high 1.4-6.5 [facility] Comment on above: Performed By: #### C BC #### [facility] [address] [place] [address] Dr. Abimael Floyd Neutrophils/100 WBC (Bld) 82.8 % Critically high 43.0-75.0 [facility] Comment on above: Performed By: #### C BC #### [facility] [address] [place] [address] Dr. Abimael Floyd Platelet mean volume (Bld) [Entitic vol] 10.2 fL Normal 9.5-13.5 [facility] Comment on above: Performed By: #### C BC #### [facility] [address] [address] [address] Abimael Floyd PLT 251 103/ul Normal 150-450 [facility] Comment on above: Performed By: #### C BC #### [facility] [address] [address] [address] Abimael Floyd RBC 4.30 106/ul Normal 4.20-5.40 [facility] Comment on above: Performed By: #### C BC #### [facility] [address] [address] [address] Abimael Floyd WBC 12.7 103/ul Critically high 4.0-11.0 [facility] Comment on above: Performed By: #### C BC #### [facility] [address] [address] [address] Abimael Floyd ECG 12 lead ECGon 03-13-2022 ECG 12 lead ECG [facility] [place] [address] Electrocardiograph Report Signed Patient: Leia Ewing MR#: [id number] : 1950 Acct:[id number] Age/Sex: 71 / F ADM Date: 03/13/22 Loc: Room: [address] [place] [address] Type: DIS IN Attending Dr: Dario Forman MD Ordering Provider: Dario Forman MD Date of Service: 03/13/22 ECG/ECG 12 lead ECG: Post Angioplasty Procedure Copies to: Test Reason : Blood Pressure : / mmHG Vent. Rate : 060 BPM Atrial Rate : 060 BPM P-R Int : 164 ms QRS Dur : 084 ms QT Int : 484 ms P-R-T Axes : 084 038 075 degrees QTc Int : 484 ms Sinus rhythm with marked sinus arrhythmia Prolonged QT Abnormal ECG No previous ECGs available Confirmed by [facility]OLAN [facility] ([id number] on 03/14/2022 11:13:24 AM Referred By: Electronically Signed By:BRIDGET PALMA MD [facility] Transcribed By: MUS Signed By Angela Palma MD 03/14/22 1113 Normal [facility] PROF 14(COMP METB)on 022 Albumin [Mass/Vol] 4.0 g/dL Normal 3.4-5.0 [facility] Comment on above: Performed By: #### B STORE OPERATIONS SPECIALIST, CMP, CMADM #### [facility] [address] [place] [address] Dr. Abimael Floyd Albumin/Globulin [Mass ratio] 1.1 {ratio} Normal [facility] Comment on above: Performed By: #### B STORE OPERATIONS SPECIALIST, CMP, CMADM #### [facility] [address] [place] [address] Dr. Abimael Floyd ALP [Catalytic activity/Vol] 115 U/L Normal 46-116 [facility] Comment on above: Performed By: #### B STORE OPERATIONS SPECIALIST, CMP, CMADM #### [facility] [address] [place] [address] Dr. Abimael Floyd ALT [Catalytic activity/Vol] 15 U/L Normal 14-59 [facility] Comment on above: Performed By: #### B STORE OPERATIONS SPECIALIST, CMP, CMADM #### [facility] [address] [address] [address] Abimael Flody Anion gap [Moles/Vol] 10.4 mmol/L Normal [facility] Comment on above: Performed By: #### B STORE OPERATIONS SPECIALIST, CMP, CMADM #### [facility] [address] [address] [address] Abimael Floyd AST [Catalytic activity/Vol] 14 U/L Critically low 15-37 [facility] Comment on above: Performed By: #### B STORE OPERATIONS SPECIALIST, CMP, CMADM #### [facility] [address] [place] [address] Dr. Abimael Floyd Bilirubin [Mass/Vol] 1.0 mg/dL Normal 0.2-1.0 [facility] Comment on above: Performed By: #### B STORE OPERATIONS SPECIALIST, CMP, CMADM #### [facility] [address] [place] [address] Dr. Abimael Floyd Calcium [Mass/Vol] 9.3 mg/dL Normal 8.5-10.1 [facility] Comment on above: Performed By: #### B STORE OPERATIONS SPECIALIST, CMP, CMADM #### [facility] [address] [address] [address] Abimael Floyd Chloride [Moles/Vol] 103 mmol/L Normal 98-107 [facility] Comment on above: Performed By: #### B STORE OPERATIONS SPECIALIST, CMP, CMADM #### [facility] [address] [address] [address] Abimael Floyd CO2 [Moles/Vol] 26.6 mmol/L Normal 21.0-32.0 [facility] Comment on above: Performed By: #### B STORE OPERATIONS SPECIALIST, CMP, CMADM #### [facility] [address] [place] [address] Dr. Abimael Floyd Creatinine [Mass/Vol] 1.03 mg/dL Critically high 0.55-1.02 [facility] Comment on above: Performed By: #### B STORE OPERATIONS SPECIALIST, CMP, CMADM #### [facility] [address] [address] [address] Abimael Floyd EGFR-AF ITALIAN >60 Normal >=60 [facility] Comment on above: Performed By: #### B STORE OPERATIONS SPECIALIST, CMP, CMADM #### [facility] [address] [place] [address] Dr. Abimael Floyd EGFR-NON AF ITALIAN 53 mL/min/1.73m2 Critically low >=60 [facility] Comment on above: Performed By: #### B STORE OPERATIONS SPECIALIST, CMP, CMADM #### [facility] [address] [address] [address] Abimael Floyd Globulin (S) [Mass/Vol] 3.5 g/dL Normal [facility] Comment on above: Performed By: #### B STORE OPERATIONS SPECIALIST, CMP, CMADM #### [facility] [address] [address] [address] Abimael Floyd Glucose [Mass/Vol] 144 mg/dL Critically high 74-106 [facility] Comment on above: Performed By: #### B STORE OPERATIONS SPECIALIST, CMP, CMADM #### [facility] [address] [address] [address] Abimael Floyd Potassium [Moles/Vol] 4.0 mmol/L Normal 3.5-5.1 [facility] Comment on above: Performed By: #### B STORE OPERATIONS SPECIALIST, CMP, CMADM #### [facility] [address] [address] [address] Abimael Floyd Protein [Mass/Vol] 7.5 g/dL Normal 6.4-8.2 [facility] Comment on above: Performed By: #### B STORE OPERATIONS SPECIALIST, CMP, CMADM #### [facility] [address] [address] [address] Abimael Floyd Sodium [Moles/Vol] 136 mmol/L Normal 136-145 [facility] Comment on above: Performed By: #### B STORE OPERATIONS SPECIALIST, CMP, CMADM #### [facility] [address] [address] [address] Abimael Floyd Urea nitrogen [Mass/Vol] 26.0 mg/dL Critically high 7.0-18 .0 [facility] Comment on above: Performed By: #### B STORE OPERATIONS SPECIALIST, CMP, CMADM #### [facility] [address] [address] [address] Abimael Floyd Urea nitrogen/Creatinine [Mass ratio] 25.2 mg/mg Normal [facility] Comment on above: Performed By: #### B STORE OPERATIONS SPECIALIST, CMP, CMADM #### [facility] [address] [address] [address] Abimael Floyd XR CHEST 1 Von 03-13-2022 XR CHEST 1 V EXAM: Chest x-ray HISTORY: CHEST PAIN, UNSPECIFIED . COMPARISON: None TECHNIQUE: Single view of the chest FINDINGS: Heart and vascularity are unremarkable. Lungs are expanded and free of focal infiltrates. Atherosclerotic changes of the thoracic aorta are noted. Marked arthritic changes of the right shoulder are noted. EKG leads overlie the chest. IMPRESSION: No acute heart or lung disease identified. Electronically authenticated by: CHLOÉ DARBY Date: 2022-03-13 12:14 Normal [facility] XR Shoulder Complete Left*on 12-11-2021 XR Shoulder Complete Left* BILATERAL SHOULDERS FINDINGS: Mildly bulbous subacromial processes bilaterally. Mild osteophyte formation involves the AC joints. Severe glenohumeral joint space loss. Contiguous with both posteromedial humeral head/neck junction cortices are 1.5 ??? 2.0 cm bone projections, likely large osteophytes. No fracture or dislocation or rotator cuff calcification is seen. Upper chest is clear. IMPRESSION: Severe bilateral glenohumeral arthritis, large medial osteophytes, conceivably exostoses Report reported and signed by Raphael Jones on 12/11/2021 1357 Normal [facility] XR Shoulder Complete Right*o n 12-11-2021 XR Shoulder Complete Right* Please see the left shoulder x-ray report from this same date Report reported and signed by Raphael Jones on 12/11/2021 1356 Normal [facility] Comprehensive Metabolic Pane juan m 06-17-2021 Albumin [Mass/Vol] 4.7 g/dL Normal 3.6-5.1 Padmini [facility] Comment on above: Performed By: #### C BRAYDEN, LIPD #### [facility] [address], [place] [id number] Albumin/Globulin [Mass ratio] 2.4 {ratio} Normal 1.0-2.5 [facility] Specialist Comment on above: Performed By: #### C BRAYDEN LIPD #### [facility] [address] [place], [place] [id number] ALP [Catalytic activity/Vol] 111 U/L Normal 35-119 [facility] Specialist Comment on above: Performed By: #### C BRAYDEN, LIPD #### [facility] [address] [place], [place] [id number] ALT [Catalytic activity/Vol] 12 U/L Normal 6-33 [facility] Specialist Comment on above: Result Comment: 03/20 Female reference range changed. Performed By: #### C BRAYDEN LIPD #### [facility] [address], [place] [id number] Anion gap [Moles/Vol] 16 mmol/L Normal 12-20 [facility] Specialist Comment on above: Result Comment: Effe ctive 04/25/2019 reference range changed. Performed By: #### C BRAYDEN LIPD #### [facility] [address] [place], [place] [id number] AST [Catalytic activity/Vol] 12 U/L Normal 9-34 [facility] Comment on above: Performed By: #### C ANGELINE OWEN #### [facility] [address], [place] [id number] Bilirubin [Mass/Vol] 0.66 mg/dL Normal 0.30-1.20 [facility] Comment on above: Performed By: #### C BRAYDEN LIPRobby #### [facility] [address], [place] [id number] BUN/CREA 31 Ratio High 6-22 [facility] Comment on above: Performed By: #### C ANGELINE OWEN #### [facility] [address], [place] [id number] Calcium [Mass/Vol] 9.9 mg/dL Normal 8.6-10.2 [facility] Comment on above: Performed By: #### C BRAYDEN LIPRobby #### [facility] [address], [place] [id number] Chloride [Moles/Vol] 106 mmol/L Normal 98-107 [facility] Comment on above: Performed By: #### C ANGELINE OWEN #### [facility] [address], [place] [id number] CO2 [Moles/Vol] 23 mmol/L Normal 20-31 [facility] Comment on above: Performed By: #### C BRAYDEN LIPRobby #### [facility] [address], [place] [id number] Creatinine [Mass/Vol] 0.8 mg/dL Normal 0.6-1.4 [facility] Comment on above: Performed By: #### C BRAYDEN LIPRobby #### [facility] [address], [place] [id number] eGFRAA 84 mL/min/1.73m2 Normal >60 [facility] Specialist Comment on above: Performed By: #### C BRAYDEN LIPRobby #### [facility] [address], [place] [id number] eGFRNAA 70 mL/min/1.73m2 Normal >60 [place] Neurobiologist Comment on above: Performed By: #### C BRAYDEN, LIPD #### [facility] [address], [place] [id number] Globulin (S) [Mass/Vol] 2.0 g/dL Normal 1.9-3.7 [facility] Neurobiologist Comment on above: Performed By: #### C BRAYDEN, LIPD #### [facility] [address], [place] [id number] Glucose [Mass/Vol] 102 mg/dL High 65-[address] [facility] Neurobiologist Comment on above: Result Comment: For FASTING Glucose --- ADA reference ranges: Normal 65-99 mg/dl Prediabetes 100-125 Diabetes >/= 126 Performed By: #### C BRAYDEN, LIPD #### [facility] [address], [place] [id number] Potassium [Moles/Vol] 4.4 mmol/L Normal 3.5-5.5 [facility] Specialist Comment on above: Performed By: #### C BRAYDEN, LIPD #### [facility] [address], [place] [id number] Protein [Mass/Vol] 6.7 g/dL Normal 6.1-8.1 [facility] Neurobiologist Comment on above: Performed By: #### C BRAYDEN LIPD #### [facility] [address], [place] [id number] Sodium [Moles/Vol] 141 mmol/L Normal 135-146 [facility] Neurobiologist Comment on above: Performed By: #### C BRAYDEN, LIPD #### [facility] [address], [place] [id number] Urea nitrogen [Mass/Vol] 25 mg/dL Normal 7-25 [facility] Neurobiologist Comment on above: Performed By: #### C BRAYDEN LIPD #### [facility] [address], [place] [id number] Lipid Panelon 06-17-2021 Cholesterol [Mass/Vol] 268 mg/dL High 125-200 [facility] Comment on above: Result Comment: Low risk < 200mg/dL Borderline risk 201-239 mg/dl High risk > or equal to 240 Performed By: #### C BRAYDEN LIPRobby #### [facility] [address], [place] [id number] Cholesterol in HDL [Mass/Vol] 62 mg/dL Normal >40 [facility] Specialist Comment on above: Result Comment: High Cardiovascular Risk HDL <40 mg/dL Low Cardiovascular Risk HDL > or equal to 60 mg/dl Performed By: #### C BRAYDEN, LIPD #### [facility] [address], [place] [id number] Cholesterol in LDL [Mass/Vol] 184 mg/dL Normal [facility] Specialist Comment on above: Result Comment: LDL ATP III CLASSIFICATION LDL less than 100 mg/dl Optimal LDL 100-129 mg/dl Near or above optimal LDL 130-159 Borderline high LDL 160-189 High LDL greater than 189 mg/dl Very High Performed By: #### C BRAYDEN, LIPRobby #### [facility] [address], [place] [id number] Cholesterol in VLDL [Mass/Vol] 22 mg/dL Normal [facility] Neurobiologist Comment on above: Performed By: #### C BRAYDEN LIPD #### [facility] [address], [place] [id number] Cholesterol.total/Choles terol in HDL [Mass ratio] 4 {ratio} Normal [facility] Specialist Comment on above: Performed By: #### C BRAYDEN LIPRobby #### [facility] [address], [place] [id number] Triglyceride [Mass/Vol] 108 mg/dL Normal 30-150 [facility] Comment on above: Result Comment: TRIG ATPIII CLASSIFICATIONS TRIG less than 150 mg/dl Normal TRIG 150-199 mg/dl Borderline High TRIG 200-500 mg/dl High TRIG greather than 500 mg/dl Very High Performed By: #### C BRAYDEN, LIPD #### [facility] [address], [place] [id number] Gillian 02-04-2021 CNOV Office Visit (KARLAMN) LEIA EWING ([id number]) 1950 F Date Time Provider Department 02/04/21 3:00 PM YONAS LUCIANO During your visit today, we recorded the following information about you: Yonas Luciano PA-C 02/04/2021 3:03 PM Signed SERVICE DATE: February 04, 2021 PCP: No primary care provider on file. Patient was self-referred. Subjective Patient ID: Leia is a 70 year old female. Chief Complaint: Patient presents with: Left Knee - Established Patient, Follow Up PAIN EVALUATION 02/04/2021 1422 Pain Level: 5 applying weight Description: Aching Duration Amount of Time: 2.5 Duration Units: Weeks Frequency: Intermittent Intervention/Comfort measure: Medication;Cold Comments: soaks 70-year-old female presents for follow-up evaluation history of a valgus stress knee with pain and staining of the medial collateral ligament is presently in a Dry-Duran I ROM brace weightbearing as tolerated however she just cried an episode most recently when she tried to get from a sitting to a standing position while in the bathroom developed a severe sharp stabbing pain lateral aspect of the knee. This forced her to sit back down because of the significant of the pain she rates the pain at that point 8 or 9 out of 10 with 10 being worst this happened about 2 months after weeks ago however on presentation today she states that the pain is 1-3 out of 10. As discussed with her previously because of the arthritic changes near [id number] of the lateral compartment she will have these episodes. She will continue with the nonsteroidals by mouth wearing the brace ambulation with support. A walker or cane and will follow up as needed for any cortisone injection. TREATMENTS PRIOR TO INITIAL CONSULT: Left Bracing: Dry-Duran knee brace Review of Systems Constitutional: Negative. HENT: Negative. Respiratory: Negative. Cardiovascular: Negative. Gastrointestinal: Negative. Endocrine: Negative. Skin: Negative. Neurological: Negative. Hematological: Negative. Musculoskeletal: Positive for joint swelling. There is no problem list on file for this patient. No past medical history on file. No past surgical history on file. No family history on file. Social History Tobacco Use - Smoking status: Not on file Substance Use Topics - Alcohol use: Not on file - Drug use: Not on file ALLERGIES Allergen Reactions - Erythromycin Anaphylaxis - Penicillins Anaphylaxis MEDICATIONS: celecoxib (CELEBREX) 200 mg capsule Take 200 mg by mouth twice daily. gabapentin (NEURONTIN) 600 mg tablet Take 600 mg by mouth once daily. losartan (COZAAR) 100 mg tablet Take 100 mg by mouth once daily. sertraline (ZOLOFT) 100 mg tablet Take 100 mg by mouth once daily. oxybutynin XL (DITROPAN XL) 5 mg 24 hr tablet Take 5 mg by mouth once daily. simvastatin (ZOCOR) 10 mg tablet Take 10 mg by mouth daily at bedtime. aspirin 81 mg chewable tablet Take 81 mg by mouth once daily. Allergies, medications, past surgical history, family history and past medical history were reviewed per this encounter. Objective Left Knee Exam Tenderness The patient is experiencing tenderness in the medial retinaculum, lateral joint line and patella. Range of Motion Extension: -10 Flexion: 110 Tests Shweta: Medial - negative Lateral - positive Varus: negative Valgus: positive Dakota: Anterior - trace Posterior - trace Drawer: Anterior - trace Posterior - trace Pivot shift: trace Patellar apprehension: trace Other Erythema: absent Scars: absent Sensation: normal Pulse: present Swelling: mild Effusion: effusion present Comments: Left painful to palpation along the MCL lateral joint. Still have some discomfort to palpation. Dry-Duran brace is fitting well she was shown how to adjust the straps to stabilize and keep it on the knee especially when ambulating. Assessment/Plan ASSESSMENT Diagnosis (M17.12) Primary osteoarthritis of left knee (primary encounter diagnosis) (S83.412D) Sprain of medial collateral ligament of left knee, subsequent encounter No orders found for this visit on 02/04/21. PLAN CLINICAL IMPRESSION / ASSESSMENT: (M17.12) Primary osteoarthritis of left knee (primary encounter diagnosis) (S83.412D) Sprain of medial collateral ligament of left knee, subsequent encounter RECOMMENDATION / PLAN: Continue with Dry-Duran knee brace patient was told to use ambulation support like a walker or cane when walking. She did describe an incident where the knee gave out on her. Has a valgus aligned knee with near [id number] lateral compartment Follow up: As needed consider cortisone injection Films prior to visit: No additional imaging warranted. SIGNATURE: Yonas Luciano PA-C PATIENT NAME: Leia Ewing DATE: February 04, 2021 TIME: 2:40 PM Referri (more content not included)... Normal [facility] CNOVon 01-14-2021 CNOV Office Visit (ORTHMN) LEIA EWING ([id number]) 1950 F Date Time Provider Department 01/14/21 3:40 PM YONAS LUCIANO During your visit today, we recorded the following information about you: Yonas Luciano PA-C 01/14/2021 12:50 PM Signed SERVICE DATE: January 14, 2021 PCP: No primary care provider on file. Patient was self-referred. Subjective Patient ID: Leia is a 70 year old female. Chief Complaint: Patient presents with: Follow Up PAIN EVALUATION 01/14/2021 1216 Pain Level: 4 Pain Location: Knee-Left Description: Aching Duration Units: Months Frequency: Continuous Intervention/Comfort measure: Medication;Repositio n;Relaxation 70-year-old female presents for follow-up evaluation status post MCL strain left knee was placed in a ROM brace which she has been using which seems to help. She has a history of bilateral pes planus and valgus alignment of the knees since she has been using the brace the pain in the left knee has settled down somewhat. She denies any other injury night sweats chills or fevers I told her to continue doing what she is doing use nonsteroidals as needed discomfort or warm soaks if the pain does return. She will continue with home exercises. As stated she denies no pain right now. TREATMENTS PRIOR TO INITIAL CONSULT: Left Bracing: irom brace Review of Systems Constitutional: Negative. HENT: Negative. Respiratory: Negative. Cardiovascular: Negative. Gastrointestinal: Negative. Endocrine: Negative. Skin: Negative. Neurological: Negative. Hematological: Negative. Musculoskeletal: Positive for joint swelling. There is no problem list on file for this patient. No past medical history on file. No past surgical history on file. No family history on file. Social History Tobacco Use - Smoking status: Not on file Substance Use Topics - Alcohol use: Not on file - Drug use: Not on file ALLERGIES Allergen Reactions - Erythromycin Anaphylaxis - Penicillins Anaphylaxis MEDICATIONS: celecoxib (CELEBREX) 200 mg capsule Take 200 mg by mouth twice daily. gabapentin (NEURONTIN) 600 mg tablet Take 600 mg by mouth once daily. losartan (COZAAR) 100 mg tablet Take 100 mg by mouth once daily. sertraline (ZOLOFT) 100 mg tablet Take 100 mg by mouth once daily. oxybutynin XL (DITROPAN XL) 5 mg 24 hr tablet Take 5 mg by mouth once daily. simvastatin (ZOCOR) 10 mg tablet Take 10 mg by mouth daily at bedtime. aspirin 81 mg chewable tablet Take 81 mg by mouth once daily. Allergies, medications, past surgical history, family history and past medical history were reviewed per this encounter. Objective Left Knee Exam Tenderness The patient is experiencing tenderness in the medial joint line and MCL. Range of Motion Extension: -10 Flexion: 110 Tests Shweta: Medial - positive Lateral - negative Varus: positive Valgus: negative Dakota: Anterior - trace Posterior - trace Drawer: Anterior - trace Posterior - trace Pivot shift: trace Patellar apprehension: trace Other Erythema: absent Scars: present Sensation: normal Swelling: mild Effusion: effusion present Assessment/Plan ASSESSMENT Diagnosis (S83.772D) Sprain of medial collateral ligament of left knee, subsequent encounter (primary encounter diagnosis) No orders found for this visit on 01/14/21. PLAN CLINICAL IMPRESSION / ASSESSMENT: (S83.412D) Sprain of medial collateral ligament of left knee, subsequent encounter (primary encounter diagnosis) RECOMMENDATION / PLAN: Discussed the risk and benefits of general NSAIDs, as well as side effect profile, and will begin trial of Celebrex. We will continue to monitor the need for further usage, and/or need for discontinuation. Follow up: if symptoms persist or worsen Films prior to visit: No additional imaging warranted. SIGNATURE: Yonas Luciano PA-C PATIENT NAME: Leia Ewing DATE: January 14, 2021 TIME: 12:41 PM Referring Provider: SELF [200] Allergies As of Date: 01/14/2021 Noted Allergy Reaction ERYTHROMYCIN 11/02/2020 10 - Anaphylaxis PENICILLINS 11/02/2020 10 - Anaphylaxis Date Reviewed: 01/14/2021 Reviewed by: Caitlin Grajeda Ma - Fully Assessed Reason for Visit: Follow Up [171] Primary Visit Diagnosis:Sprain of medial collateral ligament of left knee, subsequent encounter [S83.412D] Prescriptions as of 01/14/2021 - celecoxib (CELEBREX) 200 mg capsule Take 200 mg by mouth twice daily. - gabapentin (NEURONTIN) 600 mg tablet Take 600 mg by mouth once daily. - losartan (COZAAR) 100 mg tablet Take 100 mg by mouth once daily. - sertraline (ZOLOFT) 100 mg tablet Take 100 mg by mouth once daily. - oxybutynin XL (DITROPAN XL) 5 mg 24 hr tablet Take 5 mg by mouth once daily. - simvastatin (ZOCOR) 10 mg tablet Take 10 mg by mouth daily at bedtime. - asp (more content not included)... Normal [facility] CNCOon 12-13-2020 CNCO Letter Text Normal [facility] CNOVon 11-02-2020 CNOV Office Visit (ORTHMN) GUCCILEIA PEREZ ([id number]) 1950 F Date Time Provider Department 11/02/20 2:20 PM YONAS LUCIANO ORTHMN During your visit today, we recorded the following information about you: Weight Height 116.1 kg 1.753 m Yonas Luciano PA-C 11/02/2020 1:57 PM Signed SERVICE DATE: November 02, 2020 PCP: No primary care provider on file. Patient was self-referred. Subjective Patient ID: Leia is a 70 year old female. Chief Complaint: Patient presents with: Left Knee Pain PAIN EVALUATION 11/02/2020 1318 Pain Level: 7 Pain Location: Knee-Left Description: Aching Duration Units: Months Frequency: Continuous Intervention/Comfort measure: Medication;Repositio n;Relaxation 70-year-old female presents for evaluation of left knee pain status post fall 3 weeks ago sustaining injuries to the left knee she points to the medial collateral ligament where the pain is located worse with ambulation. She denies any other injuries when she went she has a history of bilateral flatfeet to many toe signs ambulates with a valgus thrust She says the pain over the last few days is settling somewhat however she still describing a good 5 out of 10 with 10 being the worst and worse with ambulation. TREATMENTS PRIOR TO INITIAL CONSULT: Oral NSAIDS Review of Systems Constitutional: Negative. HENT: Negative. Respiratory: Negative. Cardiovascular: Negative. Gastrointestinal: Negative. Skin: Negative. Neurological: Negative. Hematological: Negative. Musculoskeletal: Positive for joint swelling. There is no problem list on file for this patient. No past medical history on file. No past surgical history on file. No family history on file. Social History Tobacco Use - Smoking status: Not on file Substance Use Topics - Alcohol use: Not on file - Drug use: Not on file ALLERGIES Allergen Reactions - Erythromycin Anaphylaxis - Penicillins Anaphylaxis MEDICATIONS: celecoxib (CELEBREX) 200 mg capsule Take 200 mg by mouth twice daily. gabapentin (NEURONTIN) 600 mg tablet Take 600 mg by mouth once daily. losartan (COZAAR) 100 mg tablet Take 100 mg by mouth once daily. sertraline (ZOLOFT) 100 mg tablet Take 100 mg by mouth once daily. oxybutynin XL (DITROPAN XL) 5 mg 24 hr tablet Take 5 mg by mouth once daily. simvastatin (ZOCOR) 10 mg tablet Take 10 mg by mouth daily at bedtime. aspirin 81 mg chewable tablet Take 81 mg by mouth once daily. Allergies, medications, past surgical history, family history and past medical history were reviewed per this encounter. Objective Left Ankle Exam Swelling: mild Range of Motion Dorsiflexion: normal Plantar flexion: normal Eversion: normal Inversion: normal Muscle Strength Dorsiflexion: 4/5 Plantar flexion: 4/5 Anterior tibial: 4/5 Posterior tibial: 4/5 Gastrocsoleus: 4/5 Peroneal muscle: 4/5 Tests Anterior drawer: negative Varus tilt: negative Other Erythema: absent Scars: absent Sensation: normal Pulse: present Comments: Bilateral pes planus complete collapse of the plantar arch too many toe signs. Left Knee Exam Tenderness The patient is experiencing tenderness in the MCL. Range of Motion Extension: -5 Flexion: 120 Tests Shweta: Lateral - positive Valgus: positive Dakota: Anterior - trace Posterior - trace Drawer: Anterior - trace Posterior - trace Pivot shift: trace Patellar apprehension: trace Other Erythema: absent Scars: present Sensation: normal Pulse: present Swelling: mild Effusion: effusion present Comments: Positive pain to palpation about the MCL is valgus alignment of the left lower extremity Assessment/Plan ASSESSMENT Diagnosis (S83.412A) Sprain of medial collateral ligament of left knee, initial encounter (primary encounter diagnosis) (M21.42) Pes planus of left foot No orders found for this visit on 11/02/20. PLAN CLINICAL IMPRESSION / ASSESSMENT: (S83.412A) Sprain of medial collateral ligament of left knee, initial encounter (primary encounter diagnosis) (M21.42) Pes planus of left foot RECOMMENDATION / PLAN: We have discussed the potential benefit of an external support device for this condition. We have have prescribed a hinged knee brace. Patient was instructed to wear this 24 hours a day with the exception of showering and sleeping. 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 SIGNATURE: Yonas Luciano PA-C PATIENT NAME: Leia Ewing DATE: November 02, 2020 TIME: 1:45 PM Daiana Bond Ma 11/02/2020 2:29 PM Signed Ms.. Ewing presents today for presents today for the application of a brace. Hinged Knee Brace was applied to the patient?s left knee. PowerStep Inserts were also given to the pa (more content not included)... [facility] XR KNEE 4V AP/PA BOTH+LAT/ME R LTon 11-02-2020 XR KNEE 4V AP/PA BOTH+LAT/CHRIS LT * * *Final Report* * * DATE OF EXAM: Nov 02 2020 12:59PM AOX [id number] - XR KNEE 4V AP/PA BOTH+LAT/CHRIS LT / PROCEDURE REASON: Pain * * * * Physician Interpretation * * * * HISTORY: Pain . Pain/immobility left kanee. TECHNIQUE: XR KNEE 4V AP/PA BOTH+LAT/CHRIS LT Laterality: LEFT Number of different views (projections): 4 COMPARISON: None available. RESULT: There is no acute fracture or dislocation. There is bilateral knee degenerative arthritis. Joint space narrowing/loss and tricompartmental marginal osteophytes, more advanced at the right patellofemoral compartment. There is a small left knee joint effusion. There is no soft tissue swelling. No other significant abnormality. ----- IMPRESSION: Moderate to severe bilateral knee degenerative arthritis, more advanced at the right patellofemoral compartment. Drill Runner: BRIAN Transcribe Date/Time: Nov 02 2020 1:37P Dictated by : ERVIN AIKEN MD This examination was interpreted and the report reviewed and electronically signed by: ERVIN AIKEN MD on Nov 02 2020 1:38PM EST [id number] [facility] Vital Signs Date Time Vital Sign Value Performing Clinician Facility 02-18-2023 11:45-0400 Body height 175.3 cm Angela Landry DO Work Phone: [facility] 02-18-2023 11:45-0400 Body mass index (BMI) [Ratio] 35.88 kg/m2 Angela Landry DO Work Phone: [facility] 02-18-2023 11:45-0400 Body weight 110.22 kg Angela Landry DO Work Phone: [facility] 02-18-2023 11:45-0400 Diastolic blood pressure 60 mm[Hg] Angela Landry DO Work Phone: [facility] 02-18-2023 11:45-0400 Heart rate 60 /min Angela Landry DO Work Phone: [facility] 02-18-2023 11:45-0400 Systolic blood pressure 100 mm[Hg] Angela Landry DO Work Phone: [facility] 12-27-2022 12:25-0400 Body height 175.26 cm Janette David Other [facility] Other 12-27-2022 12:25-0400 Body mass index (BMI) [Ratio] 35.23 kg/m2 Janette Hernandez Other [facility] Other 12-27-2022 12:25-0400 Body temperature 96.8 [degF] Janette Hernandez Other [facility] Other 12-27-2022 12:25-0400 Body weight 108.23 kg Janette Hernandez Other [facility] Other 12-27-2022 12:25-0400 Diastolic blood pressure 80 mm[Hg] Janette Hernandez Other [facility] Other 12-27-2022 12:25-0400 Respiratory rate 18 /min Janette Hernandez Other [facility] Other 12-27-2022 12:25-0400 SaO2% (BldA) [Mass fraction] 96 % Janette Hernandez Other [facility] Other 12-27-2022 12:25-0400 Systolic blood pressure 130 mm[Hg] Janette Hernandez Other [facility] Other 08-20-2022 11:17-0400 Body height 175.26 cm Xavier Robbins Work Phone: [facility] [employer] 250 DO Work Phone: 08-20-2022 11:17-0400 Body mass index (BMI) [Ratio] 36.18 kg/m2 Xavier Robbins Work Phone: [facility] 250 DO Work Phone: 08-20-2022 11:17-0400 Body surface area Derived from formula 2.25 m2 Xavier Aguilaryer Work Phone: [facility] 250 DO Work Phone: 08-20-2022 11:17-0400 Body weight 111.13 kg Edalejandro Aguilaryer Work Phone: [facility] 250 DO Work Phone: 08-20-2022 11:17-0400 Diastolic blood pressure 72 mm[Hg] Xavier Aguilaryer Work Phone: [facility] 250 DO Work Phone: 08-20-2022 11:17-0400 Heart rate 68 /min Xavier Aguilaryer Work Phone: [facility] 250 DO Work Phone: 08-20-2022 11:17-0400 Systolic blood pressure 122 mm[Hg] Xavier Aguilaryer Work Phone: [facility] 250 DO Work Phone: 03-27-2022 08:53-0500 Body height 175.26 cm Xavier Aguilaryer Work Phone: [facility] 250 DO Work Phone: 03-27-2022 08:53-0500 Body mass index (BMI) [Ratio] 36.77 kg/m2 Xavier Aguilaryer Work Phone: [facility] 250 DO Work Phone: 03-27-2022 08:53-0500 Body surface area Derived from formula 2.27 m2 Xavier Robbins Work Phone: [facility] 250 DO Work Phone: 03-27-2022 08:53-0500 Body weight 112.95 kg Xavier Robbins Work Phone: [facility] 250 DO Work Phone: 03-27-2022 08:53-0500 Diastolic blood pressure 72 mm[Hg] Xavier Aguilaryer Work Phone: [facility] 250 DO Work Phone: 03-27-2022 08:53-0500 Heart rate 78 /min Xavier Aguilaryer Work Phone: [facility] 250 DO Work Phone: 03-27-2022 08:53-0500 Systolic blood pressure 114 mm[Hg] Xavier Robbins Work Phone: [facility] 250 DO Work Phone: 03-14-2022 14:00-0500 Diastolic blood pressure 76 mm[Hg] MD Dario Forman Work Phone: [facility] 03-14-2022 14:00-0500 Heart rate 66 /min MD Dario Forman Work Phone: [facility] 03-14-2022 14:00-0500 Respiratory rate 16 /min MD Dario Forman Work Phone: [facility] 03-14-2022 14:00-0500 SaO2% (BldA) [Mass fraction] 96 % MD Dario Forman Work Phone: [facility] 03-14-2022 14:00-0500 Systolic blood pressure 173 mm[Hg] MD Dario Forman Work Phone: [facility] 03-14-2022 11:59-0500 Body temperature 98.2 [degF] MD Dario Forman Work Phone: [facility] 03-14-2022 11:57-0500 Body height 175.26 cm MD Dario Forman Work Phone: [facility] 03-14-2022 06:00-0500 Body weight 114.9 kg MD Dario Forman Work Phone: [facility] 03-14-2022 00:00-0500 65 1 Xavier Robbins Work Phone: [facility] 250 DO Work Phone: Comment on above: [id number] 03-13-2022 14:45-0500 Inhaled oxygen flow rate 2 L/min MD Dario Forman Work Phone: [facility] Encounters Encounter Date Encounter Type Care Provider Facility Start: 05-06-2023 End: 05-07-2023 ambulatory MARK VAN Not Available Start: 03-17-2023 End: 03-17-2023 ambulatory XAVIER ROBBINS Not Available Start: 03-09-2023 End: 03-09-2023 ambulatory XAVIER ROBBINS Not Available Start: 02-18-2023 End: 02-18-2023 ambulatory [facility] Ambulatory Start: 02-18-2023 End: 02-18-2023 Office outpatient visit 15 minutes Angela Landry DO Work Phone: [facility] Comment on above: ASHD (arteriosclerot ic heart disease); History of myocardial infarction; Status post insertion of drug eluting coronary artery stent; Class 2 obesity due to excess calories with body mass index (BMI) of 36.0 to 36.9 in adult, unspecified whether serious comorbidity present; SOB (shortness of breath) on exertion Start: 12-27-2022 End: 12-27-2022 ambulatory Janette Hernandez Other [facility] Other Start: 12-27-2022 Office outpatient vi sit 15 minutes Janette Hernandez [facility] Start: 08-20-[address] Xavier Robbins Facility: Start: 08-20-2022 Office outpatient vi sit 15 minutes Xavier Robbins Work Phone: [facility] 250 DO Work Phone: Start: 03-27-2022 Office outpatient vi sit 25 minutes Xavier Robbins Work Phone: [facility] 250 DO Work Phone: Start: 03-27-[address] Xavier Robbins Facility: Start: 03-14-[address] Xavier Robbins Facility:[facility] Start: 03-13-2022 End: 03-14-2022 Evaluation and management of inpatient Xavier Robbins Facility:[facility] Start: 03-13-2022 End: 03-13-2022 ambulatory UNKNOWN PROVIDER Facility:[facility] Start: 03-13-2022 End: 03-14-2022 Evaluation and management of inpatient MD Dario Forman Work Phone: [facility] Start: 03-13-2022 End: 03-13-[address] XAVIER ROBBINS Facility:[facility] Procedures Date Procedure Procedure Detail Performing Clinician Start: 02-18-2023 History of placement of stent for coronary artery disease Status post insertion of drug eluting coronary artery stent Angela Landry DO Work Phone: Start: 03-13-2022 CL Coronary Thrombol ysis IC MD Dario Forman Work Phone: Start: 03-13-2022 CL LHC & COR Angio MD Jonathan Forman Work Phone: Start: 03-13-2022 CL PCI AMI 1st Vesse l CX JOANN MD Dario Forman Work Phone: Start: 03-13-2022 MD Dario Forman Work Phone: History of placement of stent for coronary artery disease Status post insertion of drug eluting coronary artery stent Xavier Robbins Work Phone: Total colonoscopy Xavier dias Work Phone: Comment on above: 2020; Total replacement of hip Ljw layo Robbins Work Phone: Plan of Treatment Date Care Activity Detail Author Start: 02-24-2024 End: 02-24-2024 Patient encounter procedure 02/24/2024 11:30 AM EST Office Visit [facility] [address] [place] [id number] Angela Landry S, DO [address] [place] [address] [facility] Start: 02-18-2023 FUV, Provider: Angela Landry, Status: Pen, Time: 11:00 AM FUV, Provider: Angela Landry, Status: Pen, Time: 11:00 AM [facility] 250 DO Work Phone: Start: 12-19-2022 Influenza vaccination Influenza Vaccine (#1) [facility] Start: 08-20-2022 FUV, Provider: Angela Landry, Status: Pen, Time: 10:40 AM FUV, Provider: Angela Landry, Status: Pen, Time: 10:40 AM [facility] 250 DO Work Phone: Start: 05-27-2022 COVID-19 Vaccine (4 - Moderna series) COVID-19 Vaccine (4 - Moderna series) [facility] Start: 03-14-2022 [facility] Start: 03-13-2022 Hospital admission [facility] Start: 09-22-2019 Pneumococcal Vaccine: 65+ Years (2 - PCV) Pneumococcal Vaccine: 65+ Years (2 - PCV) [facility] Start: 05-12-2011 DTaP/Tdap/Td Vaccines (1 - Tdap) DTaP/Tdap/Td Vaccines (1 - Tdap) [facility] Start: 1998 Zoster Vaccines (1 of 2) Zoster Vaccines (1 of 2) [facility] Start: 1988 Screening for malignant neoplasm of breast Mammogram [facility] Start: 1966 Hepatitis C screening Hepatitis C Screening [facility] Start: 1948 Lipid panel Lipid Panel [facility] Start: 1950 Medicare Annual Wellness Visit Medicare Annual Wellness Visit (AWV) [facility] Start: 1950 Screening for malignant neoplasm of colon [facility] Start: 1950 Screening for osteoporosis Bone Density Scan [facility] Patient Education High Blood Pre ssure (DC) Heart Attack (DC) Low Salt Diet What Can Go Wrong After a Heart Attack? Lowering Your Risk of Heart Disease Aspirin to Prevent Heart Attacks and Cancer [facility] Work Phone: Patient referral [facility] Work Phone: Immunizations Immunization Date Immunization Notes Care Provider Gilmar falk 04-01-2022 influenza virus vaccine, unspecified formulation Angela Landry DO Work Phone: [facility] Work Phone: 09-21-2018 pneumococcal polysaccharide vaccine, 23 valent Janette Hernandez Other [facility] Other 05-11-2011 tetanus and diphther ia toxoids, adsorbed, preservative free, for adult use (5 Lf of tetanus toxoid and 2 Lf of diphtheria toxoid) Janette Hernandez Other [facility] Other Payers Date Payer Category Payer Medicare [id number] 2022 Self-pay 2021 Medicare [id number] 2021 Unknown 2020 Unknown [id number] 1950 Unknown [id number] 2.16.84 [id number] 1950 Unknown [id number] 2.16. [id number] 1950 Unknown [id number] 2.16. [id number] 1948 Unknown [id number] 2.16. [id number] 1950 Unknown [id number] 2.16.8 [id number] 1948 Unknown [id number] 2.16.84 [id number] 1948 Unknown [id number] 1948 Unknown [id number] Unknown [id number] 2.16.8 [id number] Social History Date Type Detail Facility Start: 03-13-2022 End: 02-18-2023 Tobacco smoking status NHIS Never smoked tobacco (finding) [facility] Start: 1950 Sex Assigned At Female F [facility] Start: 02-18-2023 Caffeine use Caffeine use [facility] 250 DO Work Phone: Start: 02-18-2023 Sex Assigned At N [facility] [employer] Other Start: 02-18-2023 Tobacco use and exposure Smokeless tobacco non-user [facility] Work Phone: Start: 02-18-2023 Alcohol intake Current drinke r of alcohol (finding) [facility] Work Phone: Start: 1950 [facility]igned [facility]: Start: 02-08-2023 End: 02-18-2023 Exposure to SARS-CoV-2 (event) Not sure [facility] Medical Equipment Procedure Code Equipment Code Equipment Origin al Text Equipment Identifier Dates Drug-eluting coronary artery stent, [id number]-[id number] lymer-coated [id number] FDA Start: 03-13-2022 Goals Date Patient Goal Desired Activity /State Functional Status Date Assessment Result Facility 03-14-2022 Functional status [facility] at [facility] Work Phone: Mental Status Date Assessment Result Facility 03-14-2022 Cognitive function Cognitive Sta tus Patient at [facility] Work Phone: Clinical Notes 11-02-2020 to 02-18-2023 Angela Landry, DO - 02/18/2023 11:00 AM EDTPatient Instructions Note Date & Type Note Facility 02-18-2023 History of Present illness Narrative Subjective Leia Ewing is a 72 y.o. female Chief Complaint Follow-up Patient is a 72-year-old female who returns for follow-up with chief complaints of shortness of breath. She is maintained on dual antiplatelet therapy including Brilinta which is likely the etiology of her dyspnea/shortness of breath. She had not myocardial infarction 1 year ago, with revascularization of the obtuse marginal branch with Dr. Dario Grossman with low normal LV function. Recommendations: Discontinue ticagrelor, follow-up within the next 8 to 12 months. Review of Systems Respiratory: Positive for shortness of breath. All other systems reviewed and are negative. Visit Vitals BP 100/60 (BP Location: Left arm, Patient Position: Sitting) Pulse 60 Ht 1.753 m (5' 9 ) Wt 110 kg (243 lb) BMI 35.88 kg/m Smoking Status Never BSA 2.31 m Objective Physical Exam Constitutional: Appearance: Normal appearance. She is normal weight. HENT: Nose: Nose normal. Neck: Vascular: No carotid bruit. Cardiovascular: Rate and Rhythm: Normal rate. Pulses: Normal pulses. Heart sounds: Normal heart sounds. Pulmonary: Effort: Pulmonary effort is normal. Abdominal: General: Bowel sounds are normal. Palpations: Abdomen is soft. Genitourinary: Rectum: Normal. Musculoskeletal: General: Normal range of motion. Cervical back: Normal range of motion. Right lower leg: No edema. Left lower leg: No edema. Skin: General: Skin is warm and dry. Neurological: General: No focal deficit present. Mental Status: She is alert. Psychiatric: Mood and Affect: Mood normal. Behavior: Behavior normal. Thought Content: Thought content normal. Judgment: Judgment normal. Current Medications Current Outpatient Medications: albuterol 90 mcg/actuation inhaler, Inhale 1 puff every 4 hours if needed., Disp: , Rfl: aspirin 81 mg EC tablet, Take 1 tablet (81 mg) by mouth once daily., Disp: , Rfl: atorvastatin (Lipitor) 80 mg tablet, Take 1 tablet (80 mg) by mouth once daily., Disp: , Rfl: calcium carbonate (Oscal) 500 mg calcium (1,250 mg) tablet, Take 1 tablet (1,250 mg) by mouth once daily., Disp: , Rfl: celecoxib (CeleBREX) 200 mg capsule, Take by mouth twice a day. With food, Disp: , Rfl: gabapentin (Neurontin) 600 mg tablet, Take 1 tablet (600 mg) by mouth once daily at bedtime., Disp: , Rfl: losartan (Cozaar) 100 mg tablet, Take 1 tablet (100 mg) by mouth once daily., Disp: , Rfl: metoprolol tartrate (Lopressor) 25 mg tablet, Take 1 tablet (25 mg) by mouth 2 times a day., Disp: , Rfl: montelukast (Singulair) 10 mg tablet, Take 1 tablet (10 mg) by mouth once daily at bedtime., Disp: , Rfl: multivitamin tablet, Take 1 tablet by mouth once daily., Disp: , Rfl: nitroglycerin (Nitrostat) 0.4 mg SL tablet, Place 1 tablet (0.4 mg) under the tongue every 5 minutes if needed for chest pain. CALL 911 IF PAIN PERSISTS., Disp: , Rfl: oxybutynin (Ditropan) 5 mg tablet, Take 1 tablet (5 mg) by mouth 2 times a day., Disp: , Rfl: sertraline (Zoloft) 100 mg tablet, Take 1 tablet (100 mg) by mouth once daily., Disp: , Rfl: Assessment/Plan 1. ASHD (arteriosclerotic heart disease) 2. History of myocardial infarction 3. Status post insertion of drug eluting coronary artery stent 4. Class 2 obesity due to excess calories with body mass index (BMI) of 36.0 to 36.9 in adult, unspecified whether serious comorbidity present 5. SOB (shortness of breath) on exertion documented in this encounter [facility] Work Phone: 02-18-2023 Instructions Aries Metzger MA - 02/18/2023 11:00 AM EDT Please bring all medicines, vitamins, and herbal supplements with you when you come to the office. Prescriptions will not be filled unless you are compliant with your follow up appointments or have a follow up appointment scheduled as per instruction of your physician. Refills should be requested at the time of your visit. Fall Prevention Education Given documented in this encounter [facility] Work Phone: 12-27-2022 Evaluation note Encounter Date Diagnosis Assessment Notes Dec, Insect bite, unspecified site, initial encounter (ICD-10 - W57.XXXA) Discussed diagnosis with patient today in office. Physical exam is consistent with insect bite, however, I am not concerned of systemic infection. Will send in Rx of mupirocin ointment to apply to the area as directed. Advised patient to monitor area, area marked today in office. Reviewed signs/symptoms of infection that require immediate evaluation or follow-up with PCP. Patient verbalizes understanding and is agreeable with treatment plan [facility] Other 11-25-2022 Discharge summary Author Daroi Forman [facility] March 14, 2022 3:25pm Note Date/Time March 14, 2022 3:10pm [facility] [address] [place] [address] Discharge Summary Signed Patient: Leia Ewing MR#: [id number] : 1950 Acct:[id number] Age/Sex: 71 / F Adm Date: 2 Loc: Room: [address] [place] [address]: Dario Forman MD Copies to: MD Dario Oh MD~ Providers Date of Discharge: 03/14/22 Discharging Provider: Dario Forman Primary Care Provider: Xavier Robbins Discharge Diagnosis (1) ST elevation (STEMI) myocardial infarction involving left circumflex coronary artery: Final Diagnosis Final Discharge Diagnosis: 1. Acute inferolateral STEMI 2. Stented coronary artery with successful primary PCI to OM 3 branch of the left circumflex 3. Ischemic cardiomyopathy with recovered left ventricular systolic function. 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 EKG was consistent with acute inferior STEMI. I was contacted and the [facility] cardiac Food Service was activated. The patient was broughtdirectly to the cardiac catheterization suite for emergent treatment of acute inferolateral lateral STEMI. Please see my cardiac catheterization and PCI notes for full details of the patient's procedure. However the patient was found to have an occluded third OM branch of the left circumflex. Primary PCI was successfully performed with implantation of a single resolute [place] drug-eluting stent with mormon of JHONNY-3 flow into the target vessel. Left ventriculography showed a focal area of dyskinesis in the mid diaphragmatic and left lateral wall. The global ejection fraction was borderline at 45 to 50%. Patient tolerated her radial procedure well without difficulty or complication. Dual antiplatelet therapy with aspirin and Brilinta was initiated. Patient had an uneventful 24 hours in the ICU. She had no problems with her right radial access site. She had no bleeding complications on anticoagulation and antiplatelet therapy while in the ICU. Post PCI echocardiogram showed a very small area of hypokinesis in the basal inferior wall. The global ejection fraction by echocardiography was normalized to 60%. Laboratory evaluation showed stable renal function as well as no other significant abnormalities. Patient had been ambulating without anginal symptoms or other difficulty. As such the patient was made ready for discharge to home in stable condition. Time spent discussing smoking cessation with patient: more than 10 minutes Condition Condition at Discharge: Stable Status at Discharge Cognitive/behavioral status at discharge: Normal Functional status at discharge: independent ambulation Overall status at discharge: patient is back to baseline Time Spent with Patient Time spent providing/coordinating discharge services (# min): 40 Specific discharge activities: 1. No lifting greater than equal to 10 pounds for 5 days with the right arm 2. Follow-up in [facility] within 10 days 3. Enrollment in phase 2 monitored cardiac rehabilitation is strongly recommended. 4. Strict compliance with medical regimen but particularly dual antiplatelet therapy is also strongly recommended. Surgeries and Procedures Operation Date: 03/13/22 12:45 Actual Procedures p CL PCI AMI 1st Vessel CX JOANN - Dario Forman MD p CL Coronary Thrombolysis IC - Dario Forman MD p CL LHC & COR Angio - Dario Forman MD Complications Complications: None Diagnostic Studies Completed and Pending Studies Labs on day of discharge: 03/14/22 04:20: PHA Creatinine Clear 68.42, Sodium 139, Potassium 4.2, Chloride 108, Carbon Dioxide 22.3, Anion Gap 12.9, BUN 17, Creatinine 0.99, Est GFR ( Amer) > 60, Est GFR (Non-Af Amer) 55, Glucose 112 H, Calcium 9.3, TotalBilirubin 0.9, AST 90 H, ALT 24, Alkaline Phosphatase 77, Total Protein 5.9 L, Albumin 3.4, Globulin 2.5, Albumin/Globulin Ratio 1.4 03/14/22 04:20: Corrected WBC 12.6 H, Uncorrected WBC Count 12.6 H, RBC 4.05, Hgb 12.0, Hct 37.1, MCV 91.7, MCH 29.6, MCHC 32.3, RDW 14.3, Plt Count 258, MPV 9.0, Neut % (Auto) 80.0, Lymph % (Auto) 8.8, Yell % (Auto) 10.2, Eos % (Auto) 0.7, Baso % (Auto) 0.3, Neut # (Auto) 10.1 H, Lymph # (Auto) 1.1, Yell # (Auto) 1.3 H, Eos # (Auto) 0.1, Baso # (Auto) 0.0, Nucleated RBC % (auto) 0.0 Exam Physical Exam Vital Signs: Temp Pulse Resp BP Pulse Ox O2 Del Method O2 Flow Rate 98.2 F 66 16 173/76 H 96 Room Air 2 03/14/22 11:59 03/14/22 14:00 03/14/22 14:00 03/14/22 14:00 03/14/22 14:00 03/14/22 14:00 03/13/22 14:45 Const General: cooperative, healthy appearing, no acute distress and diaphoretic Orientation: alert, awake and oriented x3 HEENT Head: normocephalic and atraumatic Face and sinus: face symmetric Mouth: moist mucous membranes Teeth and gingiva: fair dentition Eyes Conjunctivae: conjunctivae normal Sclera: sclerae normal Pupils: PERRL and accommodation normal EOM: EOM intact bilaterally Direct ophthalmoscopy: no photophobia Neck Neck: no lymphadenopathy and supple Neck mass: No Thyroid: thyroid normal Carotids: normal carotid upstroke Lymphatic: no lymphadenopathy noted Resp Effort & Inspection: normal respiratory effort, able to speak in complete sentences and symmetric chest movement Auscultation: clear to auscultation bilaterally Cardio Jugular venous pressure: no JVD Palpation: normal PMI Rate: regular rate Rhythm: regular rhythm Heart Sounds: S1 normal, S2 normal and gallop S4 gallop Pulses: radial pulses present, posterior tibial pulses present and dorsalis pedis present GI Inspection: large pannus and obesity Palpation: soft Skin General: no rashes or lesions noted Trauma: no lacerations or abrasions Wounds: no wounds Neuro General: patient alert, patient awake, patient oriented x3, moves all extremities and no focal motor deficits Cranial Nerves: CN's II-XII intact bilaterally Cognition: normal cognition Speech: speech normal Motor: muscle tone normal throughout Sensory Exam: no sensory deficits noted Psych Appearance: grossly normal Mental Status: mental status grossly normal Mood: anxious mood Affect: anxious affect Speech and Movement: agitated Attitude: cooperative Thought Process: normal Thought Content: normal Insight: insight good Judgment: judgment good Discharge Plan Discharge Plan Comment: No lifting > 10lbs x 5 days w R arm. Diet: Low-Sodium Instructions: High Blood Pressure (DC), Heart Attack (DC), Low Salt Diet, What Can Go Wrong After a Heart Attack?, Lowering Your Risk of Heart Disease, Aspirinto Prevent Heart Attacks and Cancer Prescriptions: New atorvastatin 80 mg Tablet 80 mg PO QPM Qty: 30 3RF nitroglycerin 0.4 mg Tablet, Sublingual 0.4 mg sublingual Q5M PRN (Reason: Chest Pain) Qty: 30 1RF aspirin [Children's Aspirin] 81 mg Tablet,Chewable 81 mg PO DAILY 30 Days Qty: 30 0RF Brilinta 90 mg Tablet 90 mg PO BID 30 Days Qty: 60 3RF metoprolol tartrate 25 mg tablet 25 mg PO BID Qty: 60 1RF Continued gabapentin 600 mg tablet 600 mg PO HS montelukast 10 mg tablet 10 mg PO DAILY oxybutynin chloride 5 mg tablet 10 mg PO BID losartan 100 mg tablet 100 mg PO DAILY Documented By: Dario Forman MD 03/14/22 1508 Signed By: <Electronically signed by Dario Forman MD> 03/14/22 1523 [facility] Work Phone: [phone] 110-698011-24-2022 History and physical note Author Dario Forman [facility] March 13, 2022 2:01pm Note Date/Time March 13, 2022 1:49pm [facility] [address] [place] [address] Cardiology H&P Signed Patient: Leia Ewing MR#: [id number] : 1950 Acct:[id number] Age/Sex: 71 / F Adm Date: 2 Loc: Room: [address] [place] [address] Type: ADM IN Attending Dr: Dario Forman MD Copies to: MD Dario Oh MD~ Date of Service: 03/13/2022 Cardiology HPI History of Present Illness Chief complaint: Chest pain, abnormal ECG with changes consistent with inferior STEMI HPI: Ms. Ewing is a 71 year old female with a history of hypertension but no known cardiac history who was in her normal state of health until approximately 1030 this morning. Patient was in her kitchen making cheesecake for Thanksgiving when she noted the abrupt onset of pressure-like substernal chest pain with associated shortness of breath and diaphoresis. The pain lasted several minutesand became particularly intense. With the symptoms the patient's family member took her directly to [place] emergency department for evaluation. In [place] ED initial ECG showed a current of injury with [address] elevation in inferior leads II, III and aVF with some recurrent reciprocal ST depression anteriorly. I was contacted by the ER physician and sent the ECG. We were bothin agreement that the ECG met STEMI criteria. The patient was treated with oralaspirin oral Brilinta loading dose, IV unfractionated heparin bolus and drip andIV nitroglycerin given her blood pressure of 170/90. She was life flighted to our facility. On arrival in the cardiac catheterization suite the patient is hemodynamically stable with stable vital signs. She still complaining of 3/10 chest pain. Telemetry monitoring shows an ongoing current of injury in the inferior leads. For now preparing the patient for emergent diagnostic left heart catheterizationwith likely primary percutaneous coronary mention in the treatment of an acute inferior ST segment elevation myocardial infarction. Review of Systems Review of Systems Other (Unobtainable secondary to the patient's urgently ill condition) [facility] Vaccinated for COVID-19?: Unknown Meds Medications and Allergies Allergies erythromycin base Allergy (Verified 03/13/22 12:50) Unknown Reaction neomycin Allergy (Verified 03/13/22 12:50) Unknown Reaction nickel Allergy (Verified 03/13/22 12:50) Unknown Reaction Exam Const General: in distress (3/10 chest pain), diaphoretic and ill appearing Nutritional Appearance: obese Orientation: alert, awake and oriented x3 HEENT Head: normocephalic and atraumatic Face and sinus: face symmetric Mouth: moist mucous membranes Teeth and gingiva: fair dentition Eyes Conjunctivae: conjunctivae normal Sclera: sclerae normal Pupils: PERRL and accommodation normal EOM: EOM intact bilaterally Direct ophthalmoscopy: no photophobia Neck Neck: no lymphadenopathy and supple Neck mass: No Thyroid: thyroid normal Carotids: normal carotid upstroke Lymphatic: no lymphadenopathy noted Resp Effort & Inspection: able to speak in complete sentences and tachypneic Auscultation: clear to auscultation bilaterally Cardio Jugular venous pressure: no JVD Palpation: normal PMI Rate: regular rate Rhythm: regular rhythm Heart Sounds: S1 normal, S2 normal and gallop S4 gallop Pulses: radial pulses present, posterior tibial pulses present and dorsalis pedis present GI Inspection: large pannus and obesity Palpation: soft Skin General: no rashes or lesions noted Trauma: no lacerations or abrasions Wounds: no wounds Neuro General: patient alert, patient awake, patient oriented x3, moves all extremities and no focal motor deficits Cranial Nerves: CN's II-XII intact bilaterally Cognition: normal cognition Speech: speech normal Motor: muscle tone normal throughout Sensory Exam: no sensory deficits noted Psych Appearance: grossly normal Mental Status: mental status grossly normal Mood: anxious mood Affect: anxious affect Speech and Movement: agitated Attitude: cooperative Thought Process: normal Thought Content: normal Insight: insight good Judgment: judgment good JHONNY Risk Score JHONNY Risk Score Predictor Historical: Age > 65 Years Old, 3 or more Risk Factors: FHx,HTN,elevated cholesterol,DM,active smoker and ASA use in Past 7 Days Presentation: Recent (>/=24hr) Angina and ST Deviation >/=0.05mV Score Risk Score (0-7): 5 Results Labs Narrative: Sodium 136 potassium 4.0 chloride 103 bicarbonate 26 BUN 26 creatinine 1.3 estimated GFR greater than 60 N-terminal proBNP 281 H&H 12.9 and 39.3 platelet count 251,000 EKG Interpretations EKG Attestation EKG: I reviewed this ECG and interpreted as documented below: Dysrhythmias Sinus rhythms and dysrhythmias: sinus rhythm UT, pacemaker, normal Myocardial infarction: inferior UT (acute or recent) A&P - Cardiology (1) ST elevation (STEMI) myocardial infarction involving left circumflex coronary artery: Assessment/Problem Details: Patient is a 71-year-old white female in the early phases of an acute inferolateral ST segment elevation myocardial infarction. Vital signs are stable with no clinical evidence of cardiogenic shock. Ongoing anginal chest pain and current of injury on surface ECG. JHONNY risk score 5. Plan: Emergent cardiac catheterization with likely primary percutaneous coronary invention in the treatment of acute inferolateral ST segment elevation myocardial infarction. Code(s): I21.21 - ST elevation (STEMI) myocardial infarction involving left circumflex coronary artery Plan Plan for admission to ICU following emergent cardiac cath/PCI. Documented By: Dario Forman MD 03/13/22 1345 Signed By: <Electronically signed by Dario Forman MD> 03/13/22 1401 [facility] Work Phone: 1(401) 958-796711-24-2022 Procedure [facility]11-24-2022 Procedure [facility]10-18-2021 Note HNO ID: [id number] Author: Yonas Luciano PA-C Service: ? Author Type: Physician Puppy Walker Type: Progress Notes Filed: 02/04/2021 3:03 PM Note Text: SERVICE DATE: February 04, 2021 PCP: No primary care provider on file. Patient was self-referred. Subjective Patient ID: Leia is a 70 year old female. Chief Complaint: Patient presents with: Left Knee - Established Patient, Follow Up PAIN EVALUATION 02/04/2021 1422 Pain Level: 5 applying weight Description: Aching Duration Amount of Time: 2.5 Duration Units: Weeks Frequency: Intermittent Intervention/Comfort measure: Medication;Cold Comments: merissa 70-year-old female presents for follow-up evaluation history of a valgus stress knee with pain and staining of the medial collateral ligament is presently in a Dry-Duran I ROM brace weightbearing as tolerated however she just cried an episode most recently when she tried to get from a sitting to a standing position while in the bathroom developed a severe sharp stabbing pain lateral aspect of the knee. This forced her to sit back down because of the significant of the pain she rates the pain at that point 8 or 9 out of 10 with 10 being worst this happened about 2 months after weeks ago however on presentation today she states that the pain is 1-3 out of 10. As discussed with her previously because of the arthritic changes near [id number] of the lateral compartment she will have these episodes. She will continue with the nonsteroidals by mouth wearing the brace ambulation with support. A walker or cane and will follow up as needed for any cortisone injection. TREATMENTS PRIOR TO INITIAL CONSULT: Left Bracing: Dry-Duran knee brace Review of Systems Constitutional: Negative. HENT: Negative. Respiratory: Negative. Cardiovascular: Negative. Gastrointestinal: Negative. Endocrine: Negative. Skin: Negative. Neurological: Negative. Hematological: Negative. Musculoskeletal: Positive for joint swelling. There is no problem list on file for this patient. No past medical history on file. No past surgical history on file. No family history on file. Social History Tobacco Use - Smoking status: Not on file Substance Use Topics - Alcohol use: Not on file - Drug use: Not on file ALLERGIES Allergen Reactions - Erythromycin Anaphylaxis - Penicillins Anaphylaxis MEDICATIONS: celecoxib (CELEBREX) 200 mg capsule Take 200 mg by mouth twice daily. gabapentin (NEURONTIN) 600 mg tablet Take 600 mg by mouth once daily. losartan (COZAAR) 100 mg tablet Take 100 mg by mouth once daily. sertraline (ZOLOFT) 100 mg tablet Take 100 mg by mouth once daily. oxybutynin XL (DITROPAN XL) 5 mg 24 hr tablet Take 5 mg by mouth once daily. simvastatin (ZOCOR) 10 mg tablet Take 10 mg by mouth daily at bedtime. aspirin 81 mg chewable tablet Take 81 mg by mouth once daily. Allergies, medications, past surgical history, family history and past medical history were reviewed per this encounter. Objective Left Knee Exam Tenderness The patient is experiencing tenderness in the medial retinaculum, lateral joint line and patella. Range of Motion Extension: -10 Flexion: 110 Tests Shweta: Medial - negative Lateral - positive Varus: negative Valgus: positive Dakota: Anterior - trace Posterior - trace Drawer: Anterior - trace Posterior - trace Pivot shift: trace Patellar apprehension: trace Other Erythema: absent Scars: absent Sensation: normal Pulse: present Swelling: mild Effusion: effusion present Comments: Left painful to palpation along the MCL lateral joint. Still have some discomfort to palpation. Dry-Duran brace is fitting well she was shown how to adjust the straps to stabilize and keep it on the knee especially when ambulating. Assessment/Plan ASSESSMENT Diagnosis (M17.12) Primary osteoarthritis of left knee (primary encounter diagnosis) (S83.412D) Sprain of medial collateral ligament of left knee, subsequent encounter No orders found for this visit on 02/04/21. PLAN CLINICAL IMPRESSION / ASSESSMENT: (M17.12) Primary osteoarthritis of left knee (primary encounter diagnosis) (S83.412D) Sprain of medial collateral ligament of left knee, subsequent encounter RECOMMENDATION / PLAN: Continue with Dry-Duran knee brace patient was told to use ambulation support like a walker or cane when walking. She did describe an incident where the knee gave out on her. Has a valgus aligned knee with near [id number] lateral compartment Follow up: As needed consider cortisone injection Films prior to visit: No additional imaging warranted. SIGNATURE: Yonas Luciano PA-C PATIENT NAME: Leia Ewing DATE: February 04, 2021 TIME: 2:40 [facility]09-27-2021 NoteHNO ID: [id number] Author: Yonas Luciano PA-C Service: ? Author Type: Physician Puppy Walker Type: Progress Notes Filed: 01/14/2021 12:50 PM Note Text: SERVICE DATE: January 14, 2021 PCP: No primary care provider on file. Patient was self-referred. Subjective Patient ID: Leia is a 70 year old female. Chief Complaint: Patient presents with: Follow Up PAIN EVALUATION 01/14/2021 1216 Pain Level: 4 Pain Location: Knee-Left Description: Aching Duration Units: Months Frequency: Continuous Intervention/Comfort measure: Medication;Reposition;Relaxation 70-year-old female presents for follow-up evaluation status post MCL strain left knee was placed in a ROM brace which she has been using which seems to help. She has a history of bilateral pes planus and valgus alignment of the knees since she has been using the brace the pain in the left knee has settled down somewhat. She denies any other injury night sweats chills or fevers I told her to continue doing what she is doing use nonsteroidals as needed discomfort or warm soaks if the pain does return. She will continue with home exercises. As stated she denies no pain right now. TREATMENTS PRIOR TO INITIAL CONSULT: Left Bracing: irom brace Review of Systems Constitutional: Negative. HENT: Negative. Respiratory: Negative. Cardiovascular: Negative. Gastrointestinal: Negative. Endocrine: Negative. Skin: Negative. Neurological: Negative. Hematological: Negative. Musculoskeletal: Positive for joint swelling. There is no problem list on file for this patient. No past medical history on file. No past surgical history on file. No family history on file. Social History Tobacco Use - Smoking status: Not on file Substance Use Topics - Alcohol use: Not on file - Drug use: Not on file ALLERGIES Allergen Reactions - Erythromycin Anaphylaxis - Penicillins Anaphylaxis MEDICATIONS: celecoxib (CELEBREX) 200 mg capsule Take 200 mg by mouth twice daily. gabapentin (NEURONTIN) 600 mg tablet Take 600 mg by mouth once daily. losartan (COZAAR) 100 mg tablet Take 100 mg by mouth once daily. sertraline (ZOLOFT) 100 mg tablet Take 100 mg by mouth once daily. oxybutynin XL (DITROPAN XL) 5 mg 24 hr tablet Take 5 mg by mouth once daily. simvastatin (ZOCOR) 10 mg tablet Take 10 mg by mouth daily at bedtime. aspirin 81 mg chewable tablet Take 81 mg by mouth once daily. Allergies, medications, past surgical history, family history and past medical history were reviewed per this encounter. Objective Left Knee Exam Tenderness The patient is experiencing tenderness in the medial joint line and MCL. Range of Motion Extension: -10 Flexion: 110 Tests Shweta: Medial - positive Lateral - negative Varus: positive Valgus: negative Dakota: Anterior - trace Posterior - trace Drawer: Anterior - trace Posterior - trace Pivot shift: trace Patellar apprehension: trace Other Erythema: absent Scars: present Sensation: normal Swelling: mild Effusion: effusion present Assessment/Plan ASSESSMENT Diagnosis (S81.513B) Sprain of medial collateral ligament of left knee, subsequent encounter (primary encounter diagnosis) No orders found for this visit on 01/14/21. PLAN CLINICAL IMPRESSION / ASSESSMENT: (S83.412D) Sprain of medial collateral ligament of left knee, subsequent encounter (primary encounter diagnosis) RECOMMENDATION / PLAN: Discussed the risk and benefits of general NSAIDs, as well as side effect profile, and will begin trial of Celebrex. We will continue to monitor the need for further usage, and/or need for discontinuation. Follow up: if symptoms persist or worsen Films prior to visit: No additional imaging warranted. SIGNATURE: Yonas Luciano PA-C PATIENT NAME: Leia Ewing DATE: January 14, 2021 TIME: 12:41 [facility]07-16-2021 NoteHNO ID: [id number] Author: Daiana Bond Ma Service: ? Author Type: ? Type: Progress Notes Filed: 11/02/2020 2:29 PM Note Text: Ms.. Ewing presents today for presents today for the application of a brace. Hinged Knee Brace was applied to the patient?s left knee. PowerStep Inserts were also given to the patient to wear in both shoes. Ms.. Ewing was instructed in proper application and care of the brace. They are to contact casting services at [phone] with any questions. [facility]07-16-2021 NoteHNO ID: [id number] Author: Yonas Luciano PA-C Service: ? Author Type: Physician Puppy Walker Type: Progress Notes Filed: 11/02/2020 1:57 PM Note Text: SERVICE DATE: November 02, 2020 PCP: No primary care provider on file. Patient was self-referred. Subjective Patient ID: Leia is a 70 year old female. Chief Complaint: Patient presents with: Left Knee Pain PAIN EVALUATION 11/02/2020 1318 Pain Level: 7 Pain Location: Knee-Left Description: Aching Duration Units: Months Frequency: Continuous Intervention/Comfort measure: Medication;Reposition;Relaxation 70-year-old female presents for evaluation of left knee pain status post fall 3 weeks ago sustaining injuries to the left knee she points to the medial collateral ligament where the pain is located worse with ambulation. She denies any other injuries when she went she has a history of bilateral flatfeet to many toe signs ambulates with a valgus thrust She says the pain over the last few days is settling somewhat however she still describing a good 5 out of 10 with 10 being the worst and worse with ambulation. TREATMENTS PRIOR TO INITIAL CONSULT: Oral NSAIDS Review of Systems Constitutional: Negative. HENT: Negative. Respiratory: Negative. Cardiovascular: Negative. Gastrointestinal: Negative. Skin: Negative. Neurological: Negative. Hematological: Negative. Musculoskeletal: Positive for joint swelling. There is no problem list on file for this patient. No past medical history on file. No past surgical history on file. No family history on file. Social History Tobacco Use - Smoking status: Not on file Substance Use Topics - Alcohol use: Not on file - Drug use: Not on file ALLERGIES Allergen Reactions - Erythromycin Anaphylaxis - Penicillins Anaphylaxis MEDICATIONS: celecoxib (CELEBREX) 200 mg capsule Take 200 mg by mouth twice daily. gabapentin (NEURONTIN) 600 mg tablet Take 600 mg by mouth once daily. losartan (COZAAR) 100 mg tablet Take 100 mg by mouth once daily. sertraline (ZOLOFT) 100 mg tablet Take 100 mg by mouth once daily. oxybutynin XL (DITROPAN XL) 5 mg 24 hr tablet Take 5 mg by mouth once daily. simvastatin (ZOCOR) 10 mg tablet Take 10 mg by mouth daily at bedtime. aspirin 81 mg chewable tablet Take 81 mg by mouth once daily. Allergies, medications, past surgical history, family history and past medical history were reviewed per this encounter. Objective Left Ankle Exam Swelling: mild Range of Motion Dorsiflexion: normal Plantar flexion: normal Eversion: normal Inversion: normal Muscle Strength Dorsiflexion: 4/5 Plantar flexion: 4/5 Anterior tibial: 4/5 Posterior tibial: 4/5 Gastrocsoleus: 4/5 Peroneal muscle: 4/5 Tests Anterior drawer: negative Varus tilt: negative Other Erythema: absent Scars: absent Sensation: normal Pulse: present Comments: Bilateral pes planus complete collapse of the plantar arch too many toe signs. Left Knee Exam Tenderness The patient is experiencing tenderness in the MCL. Range of Motion Extension: -5 Flexion: 120 Tests Shweta: Lateral - positive Valgus: positive Dakota: Anterior - trace Posterior - trace Drawer: Anterior - trace Posterior - trace Pivot shift: trace Patellar apprehension: trace Other Erythema: absent Scars: present Sensation: normal Pulse: present Swelling: mild Effusion: effusion present Comments: Positive pain to palpation about the MCL is valgus alignment of the left lower extremity Assessment/Plan ASSESSMENT Diagnosis (S83.412A) Sprain of medial collateral ligament of left knee, initial encounter (primary encounter diagnosis) (M21.42) Pes planus of left foot No orders found for this visit on 11/02/20. PLAN CLINICAL IMPRESSION / ASSESSMENT: (S83.412A) Sprain of medial collateral ligament of left knee, initial encounter (primary encounter diagnosis) (M21.42) Pes planus of left foot RECOMMENDATION / PLAN: We have discussed the potential benefit of an external support device for this condition. We have have prescribed a hinged knee brace. Patient was instructed to wear this 24 hours a day with the exception of showering and sleeping. 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 SIGNATURE: Yonas Luciano PA-C PATIENT NAME: Leia wEing DATE: November 02, 2020 TIME: 1:45 [facility]07-16-2021 NoteHNO ID: [id number] Author: RT Timo(R) Service: ? Author Type: Technical Solution Architect Type: Progress Notes Filed: 11/02/2020 1:00 PM Note Text: Radiology Service Progress Note PATIENT NAME: Leia Ewing DATE OF SERVICE: November 02, 2020 TIME: 12:59 PM PATIENT IDENTITY VERIFICATION COMPLETED USING TWO (2) IDENTIFIERS: Name and Date of confirmed by patient verbally. FALL SCREENING: Has the patient had 2 falls in the last year or 1 fall with injury or currently using an Ambulatory Assistive Device (Walker, Cane, Wheelchair, Crutches, etc.)? No PATIENT GENDER DATA: Female. status: : No status: NO. PATIENT RELEVANT IMPLANT DATA REVIEWED: Not Applicable RADIOLOGY DEPARTMENT: General X-ray: Exam(s) Completed: Lower Extremity X-Ray(s): Knee, AP / Lat / Tunne / Merchant Left and Wt. Bearing PERIPHERAL IV DATA: Not applicable SIGNED BY: Yony Racheal, RT(R) November 02, 2020 12:59 [facility] Diagnosis Onset Date Resolution Status [id number] [facility] Work Phone: Evaluation note* Diagnosis ASHD (arteriosclerotic heart disease) Coronary atherosclerosis of unspecified type of vessel, [place] or graft History of myocardial infarction Status post insertion of drug eluting coronary artery stent Class 2 obesity due to excess calories with body mass index (BMI) of 36.0 to 36.9 in adult, unspecified whether serious comorbidity present SOB (shortness of breath) on exertion Shortness of breath documented in this encounter [facility] Work Phone: History general Narrative - Reported* Type Description Date Medical History allergies Medical History asthma Medical History Essential hypertension, benign Medical History Chronic kidney disease, Stage II (mild) Medical History Infectious mononucleosis Medical History Symptomatic menopausal or female climacteric states Medical History Other malignant neoplasm of skin , site unspecified Medical History Mixed hyperlipidemia Medical History Depressive disorder, not elsewhe re classified Medical History Neoplasm of uncertain behavior o f skin Medical History Infectious mononucle osis without complication, infectious mononucleosis due to unspecified organism Medical History 06/14/2016 LEFT FOOT FX. allergie s Medical History asthma Medical History Essential hypertension, benign Medical History Chronic kidney disease, Stage II (mild) Medical History Infectious mononucleosis Medical History Symptomatic menopausal or female climacteric states Medical History Other malignant neoplasm of skin , site unspecified Medical History Mixed hyperlipidemia Medical History Depressive disorder, not elsewhe re classified Medical History Neoplasm of uncertain behavior o f skin Medical History Infectious mononucle osis without complication, infectious mononucleosis due to unspecified organism Medical History Right foot broke in two places Medical History Back pain of lumbar region with sciatica Medical History Other spondylosis with myelopath y, lumbar region Medical History Chronic kidney disease, stage 3 Medical History Symptomatic menopausal or female climacteric states Surgical History reduction of closed fracture le ft ankle 2012 Surgical History Bilateral tubal ligation 1979 Surgical History Cataract extraction 2013 Surgical History Colonoscopy; Disease :Polyp 2 year follow up recommended 2012 Surgical History RT ARL[facility] Dr. Novak 06/22/17 Surgical History LT ARL[facility] Dr. Novak 09/20/18 Hospitalization History ER broken foot -- seeing Dr. Fournier 06/2016 Hospitalization History Rt Total Hip Replacement [facility] Dr Novak 06/22/2017 Thumb Reading Other Reason for referral (narrative)* Consultation (Routine) - Authorized Specialty Diagnoses / Procedures Referred By Gil morse Referred To Contact Cardiology Diagnoses ASHD (arteriosclerotic heart disease) History of myocardial infarction Status post insertion of drug eluting coronary artery stent Procedures Follow Up In Cardiology Angela Landry DO [address] [facility] [address] [place] [address] Angela Landry DO [address] [facility] [address] [place] [address] Referral ID Status Reason Start Date Expiration Date V isits Requested Visits Authorized [id number] Authorized 02/18/2023 02/18/2024 1 1 T [facility] Work Phone: Summary Purpose Family History No Family History Records FoundUnknown Family Member Name Dates Details Family history of atrial fib rillation: Mother(V17.49, Z82.49) Status:Active Family history of cerebrovas cular accident (CVA): Mother, Father(V17.1, Z82.3) Status:Active Acute myelomonocytic leukemi a in relapse: Father Status:Active Unknown Family Member Name Dates Details Family history of atrial fib rillation: Mother(V17.49, Z82.49) Status:Active Family history of cerebrovas cular accident (CVA): Mother, Father(V17.1, Z82.3) Status:Active Acute myelomonocytic leukemi a in relapse: Father Status:Active Advance Directives No Advanced Directives Records Found Advance Directive Response Recorded Date/ Time Advance Directives No February 12:26pm Chief Complaint and Reason for Visit Chief Complaint Stemi Reason for Visit [id number] Chief Complaint * LEIA EWING is being seen for a 6 month follow-up of. * 71-year-old female returns for follow-up and doing well she has no cardiovascular complaints. She denies angina or nitrate usage or recurrent hospitalizations. She sustained inferior UT in February 2022 around Thanksgiving, underwent primary PCI of the third OM branch with drug-eluting stent without complications. * She remains on appropriate guideline directed medical therapies as reviewed. She has underlying obesity, mild ambulatory disability and ambulates with cane but with no falls. She remains independent * She has no hospitalizations or heart failure or syncope. * Recommendations, continue current therapies follow-up in 6 months * LEIA EWING is being seen for a 6 month follow-up of. * 71-year-old female returns for follow-up and doing well she has no cardiovascular complaints. She denies angina or nitrate usage or recurrent hospitalizations. She sustained inferior UT in February 2022 around [place], underwent primary PCI of the third OM branch with drug-eluting stent without complications. * She remains on appropriate guideline directed medical therapies as reviewed. She has underlying obesity, mild ambulatory disability and ambulates with cane but with no falls. She remains independent * She has no hospitalizations or heart failure or syncope. * Recommendations, continue current therapies follow-up in 6 months Additional Source Comments INFORMATION SOURCE (unrecogn ized section and content) DATE CREATED AUTHOR 05/23/2021 [facility] DATE CREATED AUTHOR AUTHOR'S ORGANIZ ATION 12/14/2021 [facility] DATE CREATED AUTHOR AUTHOR'S ORGANIZ ATION 03/19/2022 [facility] DATE CREATED AUTHOR AUTHOR'S ORGANIZ ATION 03/19/2022 [facility] DATE CREATED AUTHOR AUTHOR'S ORGANIZ ATION 05/24/2022 [facility] DATE CREATED AUTHOR AUTHOR'S ORGANIZ ATION 08/22/2022 [facility] DATE CREATED AUTHOR AUTHOR'S ORGANIZ ATION 08/22/2022 [employer] DATE CREATED AUTHOR AUTHOR'S ORGANIZ ATION 02/20/2023 [facility] DATE CREATED AUTHOR AUTHOR'S ORGANIZ ATION 05/10/2023 [facility] dical Specialists EPIC Care Teams (unrecognized sec tion and content) Team Status: Inactive Member Role Status Dates Dario Forman MD Admit Provider, Attending Provider A ctive Xavier Robbins MD Primary Care Provider Active Team Status: Active Member Role Status Dates Xavier Robbins MD Primary Care Provider Active Senior Quantity Surveyor Relationship Specialty Start Date End Date Xavier Robbins MD [address] [place] [address] PCP - General 03/14/22 REASON FOR VISIT (unrecogniz ed section and content) Reason Comments Follow-up 6m FOR RECORDS PERTAINING TO PATIENTS WHO ARE OR HAVE BEEN ENROLLED IN A CHEMICAL DEPENDENCY/SUBSTANCEABUSE PROGRAM, SOME INFORMATION MAY BE OMITTED. This clinical summary was aggregated from multiple sources. Caution should be exercised in using it in the provision of clinical care. This summary normalizes information from multiple sources, and as a consequence, information in this document may materially change the coding, format and clinical context of patient data. In addition, data may be omitted in some cases. CLINICAL DECISIONS SHOULD BE BASED ON THE PRIMARY CLINICAL RECORDS. [employer] [facility]. provides no warranty or guarantee of the accuracy or completeness of information in this document.
--- NOTE | 2023-07-12 11:01 | XR_ITS ---
The [address] [address] Patient Name: LEIA EWING MRN: [id number] date: 1950 Sex: F Assigned Patient Location: ER Current Patient Location: ER Accession/Order Number: [id number] Exam Date: 07/12/2023 11:10 Report Date: 07/12/2023 11:45 At the request of: JUWAN HOLLEY Procedure: XR chest 1V EXAM: XR chest 1V HISTORY: SOB COMPARISON: None. TECHNIQUE: Frontal view of the chest. FINDINGS: No focal consolidations or pleural effusions. Cardiomediastinal silhouette is unremarkable. Degenerative changes of the glenohumeral joints bilaterally. XR/XR chest 1V IMPRESSION: No acute disease. Electronically authenticated by: TYRA SERRANO Date: 07/12/2023 11:45
--- NOTE | 2023-07-12 11:01 | ECG_ITS ---
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
[2023-07-12 11:19] LABS: Hematocrit 36.9 % (36.0-48.0); Hemoglobin 11.8 g/dL (12.0-16.0); Mean Corpuscular Hemoglobin 30.5 pg (26.7-34.0); Mean Corpuscular Volume 95.3 fL (81.0-99.0); Mean Platelet Volume 10.2 fL (9.5-13.5); Platelet Count 191 10^3/uL (150-450); Red Blood Count 3.87 10^6/uL (4.20-5.40); Red Cell Distribution Width 14.8 % (11.0-15.0)
[2023-07-12 11:31] LABS: INR 1.03; Prothrombin Time 10.9 sec (9.0-11.6)
[2023-07-12 11:34] LABS: Alanine Aminotransferase 14 U/L (14-59); Albumin Globulin Ratio 0.8; Albumin Level 2.8 g/dL (3.4-5.0); Alkaline Phosphatase 95 U/L (46-116); Aspartate Amino Transferase 12 U/L (15-37); BUN Creatinine Ratio 12.8; Bilirubin Total 1.1 mg/dL (0.2-1.0); Calcium 8.6 mg/dL (8.5-10.1); Carbon Dioxide 24.1 mmol/L (21.0-32.0); Chloride 102 mmol/L (98-107); Estimated GFR (African America 47 (>=60); Estimated GFR (Non-African Ame 39 (>=60); Globulin 3.6 g/dL; Glucose 194 mg/dL (74-106); Potassium 4.1 mmol/L (3.5-5.1); Sodium 137 mmol/L (136-145); Total Protein 6.4 g/dL (6.4-8.2)
[2023-07-12 11:38] LABS: Magnesium 1.4 mg/dL (1.8-2.4); Troponin I High Sensitivity 16.9 pg/mL (4.0-51.3)
[2023-07-12] MEDS: DILTIAZEM HCL 25 MG/5 ML VIAL 20 MG IV (11:38)
[2023-07-12] MEDS: 0.9 % SODIUM CHLORIDE 1,000 ML 1000 ML IV (11:39)
[2023-07-12 11:42] LABS: Band Neutrophils Absolute 0.8 10^3/uL (0.0-0.3); Monocytes Absolute Manual 2.08 10^3/uL (0.30-0.80); Segmented Neut Absolute Manual 12.32 10^3/uL (1.4-6.5)
[2023-07-12 11:48] LABS: Lactate/Lactic Acid 2.1 mmol/L (0.4-2.0)
--- NOTE | 2023-07-12 11:49 | ECG_ITS ---
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
--- NOTE | 2023-07-12 11:49 | ED_ITS ---
HPI - Arrhythmia/Palpitations General Chief Complaint: Arrhythmia/Palpitations Stated Complaint: Dizziness Time Seen by Provider: 07/12/23 11:01 Source: medical record and other Source comment: EMS Mode of arrival: ambulance Limitations: no limitations History of Present Illness HPI narrative: The patient have a history of coronary disease as well as hypertension chronic kidney disease is coming to the ER after she has been having generalized weakness for the last few days associated with dizziness as well when she was going to the bathroom before arrival, as per the EMS she was found to be in A- fib her heart rate was around 116 when they arrived they gave her Cardizem 10 mg, the patient had no chest pain at any time she also mentioned that she has been having nausea, No cough or fever Related Data Home Medications ?Medication ?Instructions ?Recorded ?Confirmed sertraline 100 mg tablet 100 mg PO Q24H 07/12/23 07/12/23 Allergies Allergy/AdvReac Type Severity Reaction Status Date / Time azithromycin Allergy Severe Verified 07/12/23 10:52 Review of Systems ROS Status of ROS 10 or more systems reviewed and unremark able except as noted in history and below Exam Narrative Exam Narrative: Nurses notes and vital signs reviewed and patient is not hypoxic. General: Well-appearing and in no apparent distress. Skin: Warm, dry, no pallor noted. No rash. Head: Normocephalic, atraumatic. Neck: Supple, non-tender. Eye: Pupils are equal, round and EOMI. No scleral icterus. Ears, Nose, Mouth, and Throat: TM are clear, no nasal mucosal hypertrophy. Oral mucosa is moist, no posterior oropharynx erythema, uvula is mid-line Cardiovascular: Regular heart rate,no murmur, gallop or rub. Respiratory: No accessory muscle use or respiratory distress. Lungs are clear to auscultation, no wheezing, rales or rhonchi Chest Wall: no tenderness Back: No midline thoracic or lumbar vertebral tenderness. No CVA tenderness Musculoskeletal: normal ROM, no calf or popliteal tenderness, no lower extremity edema/swelling GI: Abdomen is soft, non-distended. Normal bowel sounds. No masses appreciated. No tenderness to palpation. No rebound, guarding, or rigidity noted. Neurological: A&O x4. No cranial nerve dysfunction observed. No truncal ataxia. Moves all extremities. Sensation intact. Psychiatric: Cooperative and interactive. Normal mood and affect. Constitutional Vital Signs, click to edit/add: Last Vital Signs Temp 99.0 F 07/12/23 10:52 Pulse 105 H 07/12/23 12:10 Resp 24 07/12/23 12:10 BP 122/66 07/12/23 12:49 Pulse Ox 98 07/12/23 12:10 O2 Del Method Room Air 07/12/23 10:52 Course Vital Signs Vital signs: Vital Signs Temperature 99.0 F 07/12/23 10:52 Pulse Rate 122 H 07/12/23 10:52 Respiratory Rate 18 07/12/23 10:52 Blood Pressure 111/74 07/12/23 10:52 Pulse Oximetry 98 07/12/23 10:52 Oxygen Delivery Method Room Air 07/12/23 10:52 Temperature 99.0 F 07/12/23 10:52 Pulse Rate 105 H 07/12/23 12:10 Respiratory Rate 24 07/12/23 12:10 Blood Pressure 122/66 07/12/23 12:49 Pulse Oximetry 98 07/12/23 12:10 Oxygen Delivery Method Room Air 07/12/23 10:52 MDM - Arrhythmia/Palpitations MDM Narrative Medical decision making narrative: The patient EKG upon arrival showing A-fib with a rate of 114 although on the monitor she is around 120 The patient is weight is 240 pounds and she was provided with 20 mg of Cardizem. Patient provided with Cardizem 20 mg bolus after which her heart rate is still in A-fib but controlled with EKG showing heart rate of 95 still in A-fib Troponin not elevated magnesium is 1.4--- replaced with 2 g of magnesium The patient CBC and chemistry as well as shows some chronic kidney disease with some elevated white blood cells which mostly right now reactive but the patient is not having any source of infection X-ray of the chest showed no acute pathology The patient case discussed with and he agreed on the Lovenox as well as Cardizem low-dose drip to be admitted to the hospital for further echo in the morning The patient case was discussed and she agreed with above-mentioned plan. Lab Data Labs: Lab Results 07/12/23 Range/Units 11:11 WBC 16.0 H (4.0-11.0) 10^3/uL RBC 3.87 L (4.20-5.40) 10^6/uL Hgb 11.8 L (12.0-16.0) g/dL Hct 36.9 (36.0-48.0) % MCV 95.3 (81.0-99.0) fL MCH 30.5 (26.7-34.0) pg MCHC 32.0 (29.9-35.2) g/dL RDW 14.8 (11.0-15.0) % Plt Count 191 (150-450) 10^3/uL MPV 10.2 (9.5-13.5) fL Seg Neuts % (Manual) 77.0 Band Neutrophils % 5.0 (0-5) % Lymphocytes % (Manual) 5.0 L (20.5-60.0) % Monocytes % (Manual) 13.0 H (1.7-12.0) % Eosinophils % (Manual) 0.0 L (0.9-7.0) % Basophils % (Manual) 0.0 L (0.2-2.0) % Neutrophils # (Manual) 12.32 H (1.4-6.5) 10^3/uL Band Neutrophils # 0.8 H (0.0-0.3) 10^3/uL Lymphocytes # (Manual) 0.80 L (1.20-3.80) 10^3/uL Monocytes # (Manual) 2.08 H (0.30-0.80) 10^3/uL Eosinophils # (Manual) 0.00 (0.00-0.70) 10^3/uL Basophils # (Manual) 0.00 (0.00-0.10) 10^3/uL PT 10.9 (9.0-11.6) sec INR 1.03 Sodium 137 (136-145) mmol/L Potassium 4.1 (3.5-5.1) mmol/L Chloride 102 (98-107) mmol/L Carbon Dioxide 24.1 (21.0-32.0) mmol/L Anion Gap 15.0 BUN 17.0 (7.0-18.0) mg/dL Creatinine 1.33 H (0.55-1.02) mg/dL Est GFR ( Amer) 47 L (>=60) Est GFR (Non-Af Amer) 39 L (>=60) BUN/Creatinine Ratio 12.8 Glucose 194 H (74-106) mg/dL Lactate 2.1 H (0.4-2.0) mmol/L Calcium 8.6 (8.5-10.1) mg/dL Magnesium 1.4 L (1.8-2.4) mg/dL Total Bilirubin 1.1 H (0.2-1.0) mg/dL AST 12 L (15-37) U/L ALT 14 (14-59) U/L Alkaline Phosphatase 95 (46-116) U/L Troponin I High Sens 16.9 (4.0-51.3) pg/mL Total Protein 6.4 (6.4-8.2) g/dL Albumin 2.8 L (3.4-5.0) g/dL Globulin 3.6 g/dL Albumin/Globulin Ratio 0.8 Discharge Plan Discharge Chief Complaint: Arrhythmia/Palpitations Clinical Impression: Atrial fibrillation with rapid ventricular response, Hypomagnesemia Patient Disposition: Admitted As Inpatient Time of Disposition Decision: 12:29
[2023-07-12] MEDS: MAGNESIUM SULFATE IN WATER 2 GM/50 ML PREMIX IV (12:03)
[2023-07-12] MEDS: ENOXAPARIN SODIUM 120 MG/0.8 ML SYRINGE 110 MG SUBQ (12:49)
[2023-07-12] MEDS: dilTIAZem HCL 125 MG in 0.9 % SODIUM CHLORIDE 100 ML IV (12:49)
--- NOTE | 2023-07-12 12:54 | CA_ITS ---
Patient Name: LEIA EWING MR#: [id number] : 1950 Exam Date: 07/13/2023 Ordering Doctor: Josie Tirado . ECHOCARDIOGRAM REPORT PROCEDURE: CA ECHO DOPPLER COMPLETE INDICATIONS: new onset afib COMPARISON: None. DESCRIPTION: COMPLETE ECHOCARDIOGRAM Real-time transthoracic echocardiography with 2D, M-mode, spectral and color flow Doppler performed. QUALITY: Technical quality was good. LEFT VENTRICLE: Normal chamber size. Thickened septal wall. Mild concentric hypertrophy. Global left ventricular systolic function is hyperdynamic. LV EF: Estimated left ventricular ejection fraction is 70-75%. DIASTOLIC: Normal diastolic function. ATRIAL SEPTUM: LEFT ATRIUM: Mild dilatation. RIGHT ATRIUM: Mild dilatation. RIGHT VENTRICLE: Normal chamber size. Normal right ventricular systolic function. TRICUSPID VALVE: Normal mobility and thickness. No stenosis with trivial regurgitation. No evidence of pulmonary hypertension. RVSP 25 mmHg MITRAL VALVE: Normal mobility and thickness. No evidence of mitral valve stenosis. There is no mitral annular calcification. Trivial mitral regurgitation. AORTIC VALVE: Normal trileaflet appearance. Mildly calcified aortic valve. Normal leaflet mobility. No evidence of aortic valve stenosis. No aortic regurgitation. AORTIC ROOT: Normal diameter and appearance. PULMONIC VALVE: Normal thickness and mobility. No stenosis. Trivial regurgitation. PERICARDIUM: No evidence of pericardial effusion. IVC: Collapses with inspirations. Normal size. PLEURA: CONCLUSION: 1. Mild concentric left ventricular hypertrophy with hyperdynamic systolic function. LVEF is 70-75%. 2. Normal right ventricular size and systolic function. 3. No significant valvular dysfunction. 4. Normal right sided pressures. 5. Mild biatrial dilatation. Adult Echocardiography Procedure Report Left Ventricle LVEDD (3.7 - 5.6 cm): 4.61 cm LVESD (2.2 - 4.0 cm): 3.25 cm LVIVS thickness (0.6 - 1.2 cm): 1.35 cm LVPW thickness (0.5 - 1.0 cm): 1.05 cm e': 0.11 m/s E - e': 8.37 LVOT Max Gradient: 6.46 mm[Hg], 6.32 mm[Hg], 6.68 mm[Hg] LVOT Area (cm2): 1.27 m/s Peak Velocity (LVOT): 1.27 m/s, 1.26 m/s, 1.29 m/s Mean Velocity (LVOT): 0.85 m/s LVOT Diameter 1.99 cm Left Ventricular Ejection Fraction: 70-75 % Left Atrium Left Atrium Systolic Dimension: 4.12 cm Mitral Valve MV E to A Ratio: 1.63, 1.62 Mitral Valve A-Wave Peak Velocity: 0.56 m/s Mitral Valve E-Wave Peak Velocity: 0.91 m/s Right Ventricle RV Internal Diastolic Dimension: 3.68 cm Aorta AO Root Diam: 2.92 cm Ascending Ao Diam: 3.04 cm Aortic Valve AoV Area (Peak Frank): 2.44 cm2, 2.43 cm2, 2.41 cm2 AoV Area (VTI): 2.08 cm2, 1.80 cm2, 2.18 cm2 Peak Velocity(Antegrade Flow): 1.62 m/s, 1.62 m/s Peak Gradient(Antegrade Flow): 10.55 mm[Hg], 10.55 mm[Hg] Mean Velocity(Antegrade Flow): 1.17 m/s, 1.12 m/s Mean Gradient(Antegrade Flow): 6.18 mm[Hg], 5.76 mm[Hg] Velocity Time Integral: 34.71 cm, 33.06 cm Tricuspid Valve Peak Velocity (Regurgitant Flow): 2.01 m/s, 2.37 m/s, 2.10 m/s Pulmonic Valve Mean Gradient: 3.46 mm[Hg], 2.87 mm[Hg] Mean Velocity: 0.86 m/s, 0.77 m/s Peak Velocity: 1.22 m/s, 1.18 m/s Peak Gradient: 6.63 mm[Hg], 5.38 mm[Hg], 5.59 mm[Hg] Right Atrium Right Atrium Systolic Pressure: 54.70 ml, 54.70 ml Dictated by: Ac Del Rio M.D. on 07/13/2023 at 14:36 Approved by: Ac Del Rio M.D. on 07/13/2023 at 14:40
[2023-07-12 13:02] LABS: Lactate/Lactic Acid 1.2 mmol/L (0.4-2.0)
--- NOTE | 2023-07-12 13:08 | PM.HP ---
HPI H&P: HPI History of Present Illness Chief complaint: Dizziness A fib W/RVR Hypomagnesemia Narrative: patient is a 72-year-old female with past medical history of coronary artery disease, hyperlipidemia, hypertension, depression, osteoarthritis, GERD, who presented to the Emergency Room today with increased weakness and some chest pain. She notes that when she has been getting up to use the restroom or moving around the house she just feels overall weakness. In the emergency department she was found to have an elevated heart rate of one hundred and sixteen. She was also found to be in atrial fibrillation with rapid ventricular response. Patient denies ever having a history of atrial fibrillation. She had a stent placed in February [address] Canales and [facility]. She reports that she follows regularly with Dr. Canales without any recent issues. She has been compliant with her medications. She denies any prior episodes of atrial fibrillation or stroke. She does appear to have a condition similar to tardive dyskinesia but she doesn't mention anything when I ask about her past medical history. She is taking a high-dose statin and metoprolol, and Brilinta daily. at the time of admission exam she denies chest pain dizziness, or weakness. Patient was started on a Cardizem drip and her heart rate has been less than a hundred. She was also started on therapeutic Lovenox. Opioid HPI Opioid Management Most Recent Opioid Data: Last ORT Total Score 0 07/12/23 13:44 Last ORT Risk Category Low Risk 07/12/23 13:44 Review of Systems ROS Narrative ROS: a complete review of systems were reviewed with patient and are positive as below or listed in History of Chief Complaint. General: no fever, chills, night sweats Head: no headache, trauma, visual changes, nausea or vomiting Skin: no reported rashes, itching or sores Eyes: no blurriness of vision Ears: no reported hearing loss, vertigo, earache, or tinnitus Throat: no sore throat, hoarseness, swelling of neck, or tongue pain Heart: chest pain, weakness Lungs: no shortness of breath or cough GI: no diarrhea or vomiting/nausea Urinary: no urinary urgency, frequency or pain Neuro: no numbness or tingling HEM: no bleeding issues or bruising ENDO: no thyroid problems Psych: no anxiety or depression [facility] Medical History (Updated 07/12/23 @ 15:48 by Josie Tirado DO) Constipation ?K59.00 - Constipation, unspecified (ICD-10) Asthma ?J45.909 - Unspecified asthma, uncomplicated (ICD-10) Myocardial infarct ?I21.9 - Acute myocardial infarction, unspecified (ICD-10) HTN (hypertension), benign ?I10 - Essential (primary) hypertension (ICD-10) Surgical History History of hip replacement, total ?Z96.649 - Presence of unspecified artificial hip joint (ICD-10) Social History Within the past year, how often did you have a drink containing alcohol: never Score interpretation: A score less than 3 is consistent with normal alcohol consumption. 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 Known occupational exposures/hazards: No Meds Home Medications and Allergies Home Medications ?Medication ?Instructions ?Recorded ?Confirmed ?Type atorvastatin 80 mg tablet 80 mg PO DAILY 07/12/23 07/12/23 History calcium carbonate 200 mg calcium 200 mg PO DAILY 07/12/23 07/12/23 History (500 mg) chewable tablet (Antacid (calcium carbonate)) celecoxib 200 mg capsule (Celebrex) 200 mg PO BID 07/12/23 07/12/23 History gabapentin 600 mg tablet 600 mg PO DAILY 07/12/23 07/12/23 History losartan 100 mg tablet 100 mg PO DAILY 07/12/23 07/12/23 History metoprolol succinate 25 mg 25 mg PO DAILY 07/12/23 07/12/23 History tablet,extended release 24 hr montelukast 10 mg tablet 10 mg PO DAILY 07/12/23 07/12/23 History nitroglycerin 0.4 mg sublingual 0.4 mg sublingual Q5M 07/12/23 07/12/23 History tablet omeprazole 20 mg capsule,delayed 20 mg PO DAILY 07/12/23 07/12/23 History release oxybutynin chloride 5 mg tablet 5 mg PO DAILY 07/12/23 07/12/23 History sertraline 100 mg tablet 100 mg PO Q24H 07/12/23 07/12/23 History ticagrelor 90 mg tablet (Brilinta) 90 mg PO BID 07/12/23 07/12/23 History Allergies Allergy/AdvReac Type Severity Reaction Status Date / Time azithromycin Allergy Severe Verified 07/12/23 10:52 Exam Narrative Exam Narrative: General: Patient is alert, and oriented to person, place and time with abnormal facial movements, shoulder movements and eye twitching when conversing Skin: no visible rashes, or ulcers Head: atraumatic, acephalic Eyes: PERRLA, no nystagmus present, conjunctiva clear, no scleral icterus Ears: normal gross auditory acuity Neck: no masses palpated, normal thyroid Heart: Normal rate, irregular rhythm, no murmurs/rubs/gallops Lungs: no audible wheezes, crackles and normal breath sounds all lung [place] Abdomen: Normal audible bowel sounds, no distension, No palpable masses, no organomegaly, no rebound/guarding/ or rigidity Musculoskeletal: no swelling bilateral lower extremities Neuro: CN II-X grossly intact Constitutional Vital Signs, click to edit/add: Last Vital Signs Temp 99.0 F 07/12/23 10:52 Pulse 105 H 07/12/23 12:10 Resp 24 07/12/23 12:10 BP 122/66 07/12/23 12:49 Pulse Ox 98 07/12/23 12:10 O2 Del Method Room Air 07/12/23 10:52 Results Labs Labs: Short CBC 07/12/23 Range/Units 11:11 WBC 16.0 H (4.0-11.0) 10^3/uL Hgb 11.8 L (12.0-16.0) g/dL Hct 36.9 (36.0-48.0) % Plt Count 191 (150-450) 10^3/uL BMP 07/12/23 11:11 Sodium 137 Potassium 4.1 Chloride 102 Carbon Dioxide 24.1 BUN 17.0 Creatinine 1.33 H Glucose 194 H Calcium 8.6 Liver Function 07/12/23 Range/Units 11:11 Total Bilirubin 1.1 H (0.2-1.0) mg/dL AST 12 L (15-37) U/L ALT 14 (14-59) U/L Alkaline Phosphatase 95 (46-116) U/L Albumin 2.8 L (3.4-5.0) g/dL Assessment and Plan Assessment and Plan (1) Atrial fibrillation with rapid ventricular response: Assessment and Plan: continue metoprolol, patient was placed on a Cardizem drip and will continue this until rate controlled or rhythm controlled. Continue therapeutic Lovenox. We'll transition to most likely I'll request tomorrow. Echocardiogram and cardiology consult tomorrow. Lipids, electrolytes and recheck a magnesium, thyroid panel in the morning. Continue to trend troponin, initial was within normal range. Elevated proBNP of one thousand, anticipate echo results tomorrow. (2) Hypomagnesemia: Assessment and Plan: replaced by 2 g IV ?1, recheck in the morning (3) HTN (hypertension), benign: Assessment and Plan: and continue losartan, metoprolol (4) CAD (coronary artery disease), [place] coronary artery: Assessment and Plan: check lipid panel in the morning along with hemoglobin A1c, continue atorvastatin and Brilinta Qualifiers: [place] vs. transplanted heart: [place] heart Associated angina: without angina Qualified Code(s): I25.10 - Atherosclerotic heart disease of [place] coronary artery without angina pectoris (5) Hyperlipidemia: Assessment and Plan: continue statin Qualifiers: Hyperlipidemia type: unspecified Qualified Code(s): E78.5 - Hyperlipidemia, unspecified (6) Depression: Assessment and Plan: continue zoloft Qualifiers: Depression Type: unspecified Qualified Code(s): F32.A - Depression, unspecified Plan patient is a DNRCCA continue lovenox patient is placed in inpatient status given this is new onset A-fib with Cardiac history and is expected to cross more than 2 midnights for medically necessary care
[2023-07-12 13:24] LABS: Adenovirus NOT DETECTED (NOT DETECTE); Bordetella parapertussis NOT DETECTED (NOT DETECTE); Coronavirus 229E NOT DETECTED (NOT DETECTE); Coronavirus HKU1 NOT DETECTED (NOT DETECTE); Coronavirus NL63 NOT DETECTED (NOT DETECTE); Coronavirus OC43 NOT DETECTED (NOT DETECTE); Human Metapneumovirus NOT DETECTED (NOT DETECTE); Human Rhinovirus/Enterovirus NOT DETECTED (NOT DETECTE); Influenza A NOT DETECTED (NOT DETECTE); Influenza B NOT DETECTED (NOT DETECTE); Mycoplasma pneumoniae NOT DETECTED (NOT DETECTE); Parainfluenza Virus 1 NOT DETECTED (NOT DETECTE); Parainfluenza Virus 2 NOT DETECTED (NOT DETECTE); Parainfluenza Virus 3 NOT DETECTED (NOT DETECTE); Parainfluenza Virus 4 NOT DETECTED (NOT DETECTE); Respiratory Syncytial Virus NOT DETECTED (NOT DETECTE); SARS-CoV-2 NOT DETECTED (NOT DETECTE)
[2023-07-12 13:36] LABS: Creatine Kinase 27 U/L (26-192); Creatine Kinase MB <0.50 ng/mL (<=3.60); Myoglobin 104 ng/mL (9-82); Thyroid Stimulating Hormone 2.572 uIU/mL (0.358-3.740)
--- OUTSIDE RECORDS SUMMARY | 2023-07-12 13:43 | XMS_ITS | CCD ---
Author Organization [facility] Care Team Providers Care Transition Mgr Name Role Phone MD Dario Forman Admit Provider MD Dario Forman Attending Provider MD Xavier Robbins Primary Care Provider DR [...] Translations: [Neomycin] Drug Allergy [address] [facility] (8 sources) nickel; Translations: [Nickel] Drug Allergy 3 rash, Swelling [facility] (3 sources) erythromycin base; Translations: [Erythromycin Base] Allergy to substance [address] [facility] (4 sources) Azithromycin; Translations: [Azithromycin TABS] Drug Allergy 3 [facility] (1 source) Erythromycin Drug Allergy hives [facility] Other (1 source) Fqtfx-Futpm-Ekhf myx-Pramoxine Drug allergy rash,itching [facility] Other (1 source) Azithromycin; Translations: [AZITHROMYCIN] Drug Allergy 3 [facility] 3 Repository Medications Current Medications Medication Drug Class(es) Dates Sig (Normalized) Sig (Original) [id number] 200 actuat albuterol 0.09 mg/actuat metered dose [...] food 0 Active take 1 capsule by [facility] every twenty-four hours Celecoxib 200 MG [...] inhalation every eight hours as needed Ipratropium [place] 0.02 % 2.5 ml Inhalation every 8 hrs as needed using [facility] N216, Rx Bin [id number], [id number] Membber ID [id number] Mar, Not-Taking meloxicam 15 mg oral tablet [...] [Coronary atherosclerosis of unspecified type of vessel, north fork or graft] Onset: 02-18-2023 02-18-2023 Chronic Coronary [...] right shoulder] Chronic Other aftercare (1 source) 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 She sustained inferior DC in February 2022 around [facility], underwent primary PCI of the third [...] Recorded: 20Aug2022 11:17AM Heart Rate68, L Radial Xnzepbas220, LUE, Sitting Mbwdfxnmp09, LUE, Sitting Height5 ft 9 in [id number] lb BMI Lbldqikunm08.18 kg/m2 BSA Calculated2.25 Tobacco Useb) No PHQ-2 [...] Aug 20 2022 12:32PM EST (Author) Normal [facility] [employer] Tobacco Screening.on 023 Fall risk assessment a) No falls within the last year -[facility] 250 DO Work Phone: Tobacco use status [facility] b) No [facility] 250 DO Work Phone: Tobacco Screening. Yes [facility] 250 DO Work [...] For - Scheduling,Retrospec tive Authorization Requested for: [id number] Agreement : I agree to have my [...] Weight Tips; Status:Complete - Retrospective Authorization; Done: [id number] Some eating tips that can help you lose weight.; Status:Complete - Retrospective Authorization; Done: [id number] SocHx: Never a smoker Tobacco Use Screening; Status:Complete; Done: [id number] Patient Instructions Please bring all medicines, vitamins, and herbal supplements with you when you come to the office. Prescriptions will not be filled unless you are compliant with your follow up appointments or have a follow up appointment scheduled as per instruction of your physician. Refills should be requested at the time of your visit. Fall prevention education given Cardiac rehab at [facility]. I recommend Omeprazole 20 mg Over the counter to help with protecting stomach. Or Zantac over the counter. Follow up in 6 months Chief Complaint LEIA EWING is being seen for follow-up of a hospitalization for. 71-year-old female follows up with me for the first time following recent inferolateral ST elevation DC in February 2022 with primary PCI of [...] negative for complaint. Vitals Vital Signs Recorded: [id number] 08:53AM Heart Rate78, R Radial Bgsxhxsl479, LUE, Sitting Emfsqhdoc63, LUE, Sitting Height5 ft 9 in Hzgpze696 lb (more content not included)... Normal [facility] Tobacco Screening.on 022 Adult depression screening assessment Yes [facility] 250 DO Work Phone: Adult depression screening assessment No [facility] 250 DO Work Phone: Fall risk assessment b) One or more fall s in the last year [facility] 250 DO Work Phone: Tobacco use status [facility] b) No [facility] 250 DO Work Phone: Basophils Auto (Bld) [#/Vol] Ordered By: Dario Forman on 03-14-2022 Basophils (Bld) [#/Vol] 0.0 10*3/uL 0.0-0.2 [facility] Basophils/100 WBC Auto (Bld) Ordered By: Dario Forman on 03-14-2022 Basophils/100 WBC (Bld) 0.3 % . [facility] Body fluid albumin measureme nt (mass/volume)Ordered By: Dario Forman on 03-14-2022 Albumin (Body fld) [Mass/Vol] 3.4 g/dL 3.2-5.5 [facility] Complete Blood Count Auto Di ffon 03-14-2022 Basophils (Bld) [#/Vol] 0.0 10*3/uL Normal 0.0-0.2 [facility] Comment on above: Result Comment: PERF ORMED BY: [place] [address] PATHOLOGIST LOOK OUT TOWER FIRE WATCHER DEE SEGUNDO M.D. Performed By: #### C MP, CBC #### [facility] [address] [place] [address] [place] Basophils/100 WBC (Bld) 0.3 % Normal . [facility] Comment on above: Performed By: #### C MP, CBC #### [facility] [address] [place] [address] [place] Eosinophils (Bld) [#/Vol] 0.1 10*3/uL Normal 0.0-0.45 [facility] Comment on above: Performed By: #### C MP, CBC #### [address] Eosinophils/100 WBC (Bld) 0.7 % Normal . [facility] Comment on above: Performed By: #### C MP, CBC #### [address] Erythrocyte distribution width (RBC) [Ratio] 14.3 % Normal 11.9-15.3 [facility] Comment on above: Performed By: #### C MP, CBC #### [address] Hematocrit (Bld) [Volume fraction] 37.1 % Normal 34.0-46.4 [facility] Comment on above: Performed By: #### C MP, CBC #### [address] Hemoglobin (Bld) [Mass/Vol] 12.0 g/dL Normal 11.8-15.4 [facility] Comment on above: Performed By: #### C MP, CBC #### [address] Lymphocytes (Bld) [#/Vol] 1.1 10*3/uL Normal 1.00-4.8 [facility] Comment on above: Performed By: #### C MP, CBC #### [address] Lymphocytes/100 WBC (Bld) 8.8 % Normal . [facility] Comment on above: Performed By: #### C MP, CBC #### [address] MCH (RBC) [Entitic mass] 29.6 pg Normal 24.7-34.3 [facility] Comment on above: Performed By: #### C MP, CBC #### [address] MCV (RBC) [Entitic vol] 91.7 fL Normal 80-100 [facility] Comment on above: Performed By: #### C MP, CBC #### [facility] [address] Mean Corpuscular HGB Conc 32.3 g/dL Normal 32.0-35.0 [facility] Comment on above: Performed By: #### C MP, CBC #### [facility] [address] [place] [address] [place] Monocytes (Bld) [#/Vol] 1.3 10*3/uL High 0.0-0.8 [facility] Comment on above: Performed By: #### C MP, CBC #### [facility] [address] [place] [address] [place] Monocytes/100 WBC (Bld) 10.2 % Normal . [facility] Comment on above: Performed By: #### C MP, CBC #### [facility] [address] Neutrophils (Bld) [#/Vol] 10.1 10*3/uL High 1.8-7.7 [facility] Comment on above: Performed By: #### C MP, CBC #### [facility] [address] [place] [address] [place] Neutrophils/100 WBC (Bld) 80.0 % Normal . [facility] Comment on above: Performed By: #### C MP, CBC #### [facility] [address] [place] [address] [place] Nucleated RBC/100 WBC (Bld) [Ratio] 0.0 % Normal 0-0.5 [facility] Comment on above: Performed By: #### C MP, CBC #### [facility] [address] [place] [address] [place] Platelet mean volume (Bld) [Entitic vol] 9.0 fL Normal 6.3-10.7 [facility] Comment on above: Performed By: #### C MP, CBC #### [facility] [address] [place] [address] [place] Platelets (Bld) [#/Vol] 258 10*3/uL Normal 150-450 [facility] Comment on above: Performed By: #### C MP, CBC #### [facility] [address] [place] [address] RBC (Bld) [#/Vol] 4.05 10*6/uL Normal 3.60-5.00 [facility] Comment on above: Performed By: #### C MP, CBC #### [address] WBC (Bld) [#/Vol] 12.6 10*3/uL High 4.5-11.0 [facility] Comment on above: Performed By: #### C MP, CBC #### [address] Comprehensive Metabolic Pane juan m 03-14-2022 Albumin [Mass/Vol] 3.4 g/dL Normal 3.2-5.[address] [facility] Comment on above: Performed By: #### C MP, CBC #### [address] Albumin/Globulin [Mass ratio] 1.4 {ratio} Normal [facility] Comment on above: Performed By: #### C MP, CBC #### [address] ALP [Catalytic activity/Vol] 77 U/L Normal 32-92 [facility] Comment on above: Performed By: #### C MP, CBC #### [address] ALT [Catalytic activity/Vol] 24 U/L Normal 10-60 [facility] Comment on above: Performed By: #### C MP, CBC #### [address] Anion gap [Moles/Vol] 12.9 mmol/L Normal 6.0-15.0 [facility] Comment on above: Performed By: #### C MP, CBC #### [address] AST [Catalytic activity/Vol] 90 U/L High 10-42 [facility] Comment on above: Performed By: #### C MP, CBC #### [facility] [address] [place] [address] [place] Bilirubin [Mass/Vol] 0.9 mg/dL Normal 0.3-1.2 [facility] Comment on above: Performed By: #### C MP, CBC #### [facility] [address] [place] [address] [place] Calcium [Mass/Vol] 9.3 mg/dL Normal 8.2-10.[address] [facility] Comment on above: Performed By: #### C MP, CBC #### [facility] [address] [place] [address] [place] Chloride [Moles/Vol] 108 mmol/L Normal 95-114 [facility] Comment on above: Performed By: #### C MP, CBC #### [facility] [address] CO2 [Moles/Vol] 22.3 mmol/L Normal 22.0-30.0 [facility] Comment on above: Performed By: #### C MP, CBC #### [facility] [address] [place] [address] [place] Creatinine [Mass/Vol] 0.99 mg/dL Normal 0.44-1.03 [facility] Comment on above: Performed By: #### C MP, CBC #### [facility] [address] [place] [address] [place] Creatinine Clr Calc Pharmacy 68.[address] [facility] Comment on above: Result Comment: PERF ORMED BY: [place] [address] PATHOLOGIST LOOK OUT TOWER FIRE WATCHER DEE SEGUNDO M.D. Performed By: #### C MP, CBC #### [facility] [address] Estimated GFR ( [place] > [address] [facility] Comment on above: Result Comment: GFR estimated reference range: According to KDOQI guidelines, <60 ml/min/1.73m2 is sufficient to diagnose a patient with chronic kidney disease. Performed By: #### C MP, CBC #### [facility] [address] Estimated GFR (Non- Am [address] [facility] Comment on above: Performed By: #### C MP, CBC #### [facility] [address] Globulin (S) [Mass/Vol] 2.5 g/dL Normal [facility] Comment on above: Performed By: #### C MP, CBC #### [facility] [address] Glucose [Mass/Vol] 112 mg/dL High 70-[address] [facility] Comment on above: Result Comment: [facility] Glucose Reference Range is dependent on time and content of last meal. Glucose of more than 200 mg/dL in a nonstressed, ambulatory subject supports the diagnosis of Diabetes Mellitus. ADA recommended reference range Performed By: #### C MP, CBC #### [address] Potassium [Moles/Vol] 4.2 mmol/L Normal 3.5-5.1 [facility] Comment on above: Performed By: #### C MP, CBC #### [address] Protein [Mass/Vol] 5.9 g/dL Low 6.1-7.[address] [facility] Comment on above: Performed By: #### C MP, CBC #### [address] Sodium [Moles/Vol] 139 mmol/L Normal 136-[address] [facility] Comment on above: Performed By: #### C MP, CBC #### [address] Urea nitrogen [Mass/Vol] 17 mg/dL Normal 9-23 [facility] Comment on above: Performed By: #### C MP, CBC #### [address] Creatinine and Glomerular fi ltration rate.predicted panel (S/P/Bld)Ordered By: Dario Forman on 03-14-2022 Creatinine [Mass/Vol] 0.99 mg/dL 0.44-1.03 [facility] ECG 12 lead ECGon 03-14-2022 ECG 12 [place] [address] Electrocardiograph Report Signed Patient: Leia Ewing MR#: [id number] : 1950 Acct:[id number] Age/Sex: 71 / F ADM Date: 03/13/22 Loc: Room: [address] [place] [address] Type: DIS IN Attending Dr: Dario Forman [...] significant change was found Confirmed by [facility] ([id number] on 03/14/2022 11:13:29 AM Referred By: Electronically Signed By:BRIDGET PALMA MD [facility] Transcribed By: MUS Signed By Angela Palma MD 03/14/[address] [place] [address] ECH echo transthoracicon ECH echo transthoracic [facility] [address] [place] [id number] Echocardiogram Signed Patient: Leia Ewing MR#: [id number] : 1950 Acct:[id number] Age/Sex: 71 / F ADM Date: 03/13/22 Loc: Room: [address] [place] [address] Type: DIS IN Attending Dr: Dario Forman MD Ordering Provider: Dario Forman MD Date of Service: 03/14/22 ECH/ECH echo transthoracic: STEMI Copies to: Alexandria Mosher MD, [facility] Dario Forman MD BSA: 2.3 m2 [...] 03/14/22 1028 Signed By: Alexandria Mosher MD, [facility] 03/14/[address] [facility] Eosinophils Auto (Bld) [#/Vo l]Ordered By: Dario Forman on 03-14-2022 Eosinophils (Bld) [#/Vol] 0.1 10*3/uL 0.0-0.45 [facility] Eosinophils/100 WBC Auto (Bl d)Ordered By: Dario Forman on 03-14-2022 Eosinophils/100 WBC (Bld) 0.7 % . [facility] Erythrocyte distribution wid th Auto (RBC) [Ratio]Ordered By: Dario Forman on 03-14-2022 Erythrocyte distribution width (RBC) [Ratio] 14.3 % 11.9-15.3 [facility] Estimated glomerular filtrat ion rate (GFR) non- AmericanOrdered By: Dario Forman on 03-14-2022 GFR/1.73 sq M.predicted among non-blacks MDRD (S/P/Bld) [Vol rate/Area] 55 mL/Min [facility] Globulin Calc (S) [Mass/Vol] Ordered By: Dario Forman on 03-14-2022 Globulin (S) [Mass/Vol] 2.5 g/dL [facility] Hematocrit Auto (Bld) [Volum e fraction]Ordered By: Dario Forman on 03-14-2022 Hematocrit (Bld) [Volume fraction] 37.1 % 34.0-46.4 [facility] Hemoglobin [Mass/volume] in BloodOrdered By: Dario Forman on 03-14-2022 Hemoglobin (Bld) [Mass/Vol] 12.0 g/dL 11.8-15.4 [facility] Laboratory - Hematology and Cell countsOrdered By: Dario Forman on 03-14-2022 Nucleated RBC/100 WBC (Bld) [Ratio] 0.0 % 0-0.5 [facility] Leukocytes [#/volume] in Blo od by Automated countOrdered By: Dario Forman on 03-14-2022 WBC (Bld) [#/Vol] 12.6 10*3/uL 4.5-11.0 [facility] Lymphocytes Auto (Bld) [#/Vo l]Ordered By: Dario Forman on 03-14-2022 Lymphocytes (Bld) [#/Vol] 1.1 10*3/uL 1.00-4.8 [facility] Lymphocytes/100 WBC Auto (Bl d)Ordered By: Dario Forman on 03-14-2022 Lymphocytes/100 WBC (Bld) 8.8 % . [facility] MCH Auto (RBC) [Entitic mass ]Ordered By: Dario Forman on 03-14-2022 MCH (RBC) [Entitic mass] 29.6 pg 24.7-34.3 [facility] MCHC Auto (RBC) [Mass/Vol]Or dered By: Dario Forman on 03-14-2022 MCHC (RBC) [Mass/Vol] 32.3 g/dL 32.0-35.0 [facility] MCV Auto (RBC) [Entitic vol] Ordered By: Dario Forman on 03-14-2022 MCV (RBC) [Entitic vol] 91.7 fL 80-100 [facility] Monocytes Auto (Bld) [#/Vol] Ordered By: Dario Forman on 03-14-2022 Monocytes (Bld) [#/Vol] 1.3 10*3/uL 0.0-0.8 [facility] Monocytes/100 WBC Auto (Bld) Ordered By: Dario Forman on 03-14-2022 Monocytes/100 WBC (Bld) 10.2 % . [facility] Neutrophils Auto (Bld) [#/Vo l]Ordered By: Dario Forman on 03-14-2022 Neutrophils (Bld) [#/Vol] 10.1 10*3/uL 1.8-7.7 [facility] Neutrophils/100 WBC Auto (Bl d)Ordered By: Dario Forman on 03-14-2022 Neutrophils/100 WBC (Bld) 80.0 % . [facility] No Panel InformationOrdered By: Dario Forman on 03-14-2022 Estimated GFR () > 60 mL/Min [facility] Comment on above: GFR estimated refere nce range: According to KDOQI guidelines, <60 ml/min/1.73m2 is sufficient to diagnose a patient with chronic kidney disease. Pharmacy Creatinine Clearance (Chem 68.42 [facility] Platelet mean volume Auto (B ld) [Entitic vol]Ordered By: Dario Forman on 03-14-2022 Platelet mean volume (Bld) [Entitic vol] 9.0 fL 6.3-10.7 [facility] Platelets Auto (Bld) [#/Vol] Ordered By: Dario Forman on 03-14-2022 Platelets (Bld) [#/Vol] 258 10*3/uL 150-450 [facility] Protein [Mass/volume] in Ser um or PlasmaOrdered By: Dario Forman on 03-14-2022 Protein [Mass/Vol] 5.9 g/dL 6.1-7.[address] [facility] RBC Auto (Bld) [#/Vol]Ordere d By: Dario Forman on 03-14-2022 RBC (Bld) [#/Vol] 4.05 10*6/uL 3.60-5.00 [facility] Serum or plasma alanine mathis otransferase measurement without P-5'-P (enzymatic activiOrdered By: Dario Forman on 03-14-2022 ALT No additional P-5'-P [Catalytic activity/Vol] 24 U/L 1060 [facility] Serum or plasma albumin/glob ulin mass ratioOrdered By: Dario Forman on 03-14-2022 Albumin/Globulin [Mass ratio] 1.4 {ratio} [facility] Serum or plasma alkaline shubham sphatase measurement (enzymatic activity/volume)Ordered By: Dario Forman on 03-14-2022 ALP [Catalytic activity/Vol] 77 U/L 32-92 [facility] Serum or plasma anion gap de terminationOrdered By: Dario Forman on 03-14-2022 Anion gap [Moles/Vol] 12.9 mmol/L 6.0-15.0 [facility] Serum or plasma aspartate am inotransferase measurement (enzymatic activity/volume)Ordered By: Dario Forman on 03-14-2022 AST [Catalytic activity/Vol] 90 U/L 10-42 [facility] Serum or plasma calcium akash urement (mass/volume)Ordered By: Dario Forman on 03-14-2022 Calcium [Mass/Vol] 9.3 mg/dL 8.2-10.[address] [facility] Serum or plasma chloride michele surement (moles/volume)Ordered By: Dario Forman on 03-14-2022 Chloride [Moles/Vol] 108 mmol/L 95-114 [facility] Serum or plasma glucose akash urement (mass/volume)Ordered By: Dario Forman on 03-14-2022 Glucose [Mass/Vol] 112 mg/dL 70-[address] [facility] Comment on above: ADA recommended refe rence rangeRandom Glucose Reference Range is dependent on time and content of last meal. Glucose of more than 200 mg/dL in a nonstressed, ambulatory subject supports the diagnosis of Diabetes Mellitus. Serum or plasma potassium me asurement (moles/volume)Ordered By: Dario Forman on 03-14-2022 Potassium [Moles/Vol] 4.2 mmol/L 3.5-5.1 [facility] Serum or plasma sodium measu rement (moles/volume)Ordered By: Dario Forman on 03-14-2022 Sodium [Moles/Vol] 139 mmol/L 136-[address] [facility] Serum or plasma total biliru bin measurement (mass/volume)Ordered By: Dario Forman on 03-14-2022 Bilirubin [Mass/Vol] 0.9 mg/dL 0.3-1.2 [facility] Serum or plasma total carbon dioxide measurement (moles/volume)Ordered By: Dario Forman on 03-14-2022 CO2 [Moles/Vol] 22.3 mmol/L 22.0-30.0 [facility] Serum or plasma urea nitroge n measurement (mass/volume)Ordered By: Dario Forman on 03-14-2022 Urea nitrogen [Mass/Vol] 17 mg/dL - [facility] BNPon 03-13-2022 Natriuretic peptide B (Bld) [Mass/Vol] 281.0 pg/mL Normal <=900.0 [facility] Comment on above: Performed By: #### B TREE TRIMMER HELPER, CMP, CMADM #### [facility] [address] [place] [address] [address] Abimael Floyd CARDIAC ANA ADMITon 022 CK [Catalytic activity/Vol] 72 U/L Normal 26-192 [facility] Comment on above: Performed By: #### B TREE TRIMMER HELPER, CMP, CMADM #### [facility] [address] [place] [address] Dr. Abimael Floyd CK.MB [Mass/Vol] 5.23 ng/mL Critically high <=3.60 [facility] Comment on above: Performed By: #### B TREE TRIMMER HELPER, CMP, CMADM #### [facility] [address] [place] [address] Dr. Abimael Floyd HSTROP 729.5 pg/mL Critically high 4.0-51.3 [facility] Comment on above: Result Comment: CUT- OFF POINTS HAVE BEEN ESTABLISHED BASED ON THE FOURTH UNIVERSAL DEFINITIONS OF MYOCARDIAL INFARCTION. THE UPPER REFERENCE LIMIT (URL) OF TROPONIN, DEFINED THE 99TH PERCENTILE OF cTnI DISTRIBUTION IN A REFERENCE POPULATION, HAS BEEN CONFIRMED THE DECISION THRESHOLD FOR DC DIAGNOSIS. Performed By: #### B TREE TRIMMER HELPER, CMP, CMADM #### [facility] [address] [place] [address] Dr. Abimael Floyd BRITTANY 111 ng/mL Critically high 9-82 [facility] Comment on above: Performed By: #### B TREE TRIMMER HELPER, CMP, CMADM #### [facility] [address] [place] [address] Dr. Abimael Floyd CBC AUTO DIFFon 03-13-2022 BASO # 0.1 103/ul Normal 0.0-0.1 [facility] Comment on above: Performed By: #### C BC #### [facility] [address] [place] [address] Dr. Abimael Floyd Basophils/100 WBC (Bld) 0.5 % Normal 0.2-2.0 [facility] Comment on above: Performed By: #### C BC #### [facility] [address] [place] [address] Dr. Abimael Floyd EO # 0.2 103/ul Normal 0.0-0.7 [facility] Comment on above: Performed By: #### C BC #### [facility] [address] [place] [address] Dr. Abimael Floyd Eosinophils/100 WBC (Bld) 1.4 % Normal 0.9-7.0 [facility] Comment on above: Performed By: #### C BC #### [facility] [address] [place] [address] Dr. Abimael Floyd Erythrocyte distribution width (RBC) [Ratio] 13.9 % Normal 11.0-15.0 [facility] Comment on above: Performed By: #### C BC #### [facility] [address] [place] [address] Dr. Abimael Floyd Hematocrit (Bld) [Volume fraction] 39.3 % Normal 36.0-48.0 [facility] Comment on above: Performed By: #### C BC #### [facility] [address] [place] [address] Dr. Abimael Floyd Hemoglobin (Bld) [Mass/Vol] 12.9 g/dL Normal 12.0-16.0 [facility] Comment on above: Performed By: #### C BC #### [facility] [address] [place] [address] Dr. Abimael Floyd IG # 0.03 10e3/ul Normal 0.00-0.03 [facility] Comment on above: Performed By: #### C BC #### [facility] [address] [place] [address] Dr. Abimael Floyd IG % 0.2 % Normal 0.0-0.5 [facility] Comment on above: Performed By: #### C BC #### [facility] [address] [place] [address] Dr. Abimael Floyd LYMPH # 1.1 103/ul Critically low 1.2-3.8 [facility] Comment on above: Performed By: #### C BC #### [facility] [address] [place] [address] Dr. Abimael Floyd Lymphocytes/100 WBC (Bld) 8.3 % Critically low 20.5-60.0 [facility] [facility] Comment on above: Performed By: #### C BC #### [facility] [address] [place] [address] Dr. Abimael Floyd MANUAL DIFF REQ NO Normal [facility] Comment on above: Performed By: #### C BC #### [facility] [address] [place] [address] Dr. Abimael Floyd MCH (RBC) [Entitic mass] 30.0 pg Normal 26.7-34.0 [facility] Comment on above: Performed By: #### C BC #### [facility] [address] [place] [address] Dr. Abimael Floyd MCHC (RBC) [Mass/Vol] 32.8 g/dL Normal 29.9-35.2 [facility] Comment on above: Performed By: #### C BC #### [facility] [address] [place] [address] Dr. Abimael Floyd MCV (RBC) [Entitic vol] 91.4 fL Normal 81.0-99.0 [facility] Comment on above: Performed By: #### C BC #### [facility] [address] [place] [address] Dr. Abimael Floyd MONO # 0.9 103/ul Critically high 0.3-0.8 [facility] Comment on above: Performed By: #### C BC #### [facility] [address] [place] [address] Dr. Abimael Floyd Monocytes/100 WBC (Bld) 6.8 % Normal 1.7-12.0 [facility] Comment on above: Performed By: #### C BC #### [facility] [address] [place] [address] Dr. Abimael Floyd NEUT # 10.5 103/ul Critically high 1.4-6.5 [facility] Comment on above: Performed By: #### C BC #### [facility] [address] [place] [address] Dr. Abimael Floyd Neutrophils/100 WBC (Bld) 82.8 % Critically high 43.0-75.0 [facility] Comment on above: Performed By: #### C BC #### [facility] [address] [place] [address] Dr. Abimael Floyd Platelet mean volume (Bld) [Entitic vol] 10.2 fL Normal 9.5-13.5 [facility] Comment on above: Performed By: #### C BC #### [facility] [address] [address] [address] Abimael Floyd PLT 251 103/ul Normal 150-450 [facility] Comment on above: Performed By: #### C BC #### [facility] [address] [address] [address] Abimael Floyd RBC 4.30 106/ul Normal 4.20-5.40 [facility] Comment on above: Performed By: #### C BC #### [facility] [address] [address] [address] Abimael Floyd WBC 12.7 103/ul Critically high 4.0-11.0 [facility] Comment on above: Performed By: #### C BC #### [facility] [address] [address] [address] Abimael Floyd ECG 12 lead ECGon 03-13-2022 ECG 12 lead ECG [facility] [address] Electrocardiograph Report Signed Patient: Leia Ewing MR#: [id number] : 1950 Acct:[id number] Age/Sex: 71 / F ADM Date: 03/13/22 Loc: Room: [address] [place] [address] Type: DIS IN Attending Dr: Dario Forman [...] previous ECGs available Confirmed by [id number] on 03/14/2022 11:13:24 AM Referred By: Electronically Signed By:BRIDGET PALMA MD [facility] Transcribed By: MUS Signed By Angela Palma MD 03/14/[address] [facility] PROF 14(COMP METB)on 022 Albumin [Mass/Vol] 4.0 g/dL Normal 3.4-5.0 [facility] Comment on above: Performed By: #### B TREE TRIMMER HELPER, CMP, CMADM #### [facility] [address] [place] [address] Dr. Abimael Floyd Albumin/Globulin [Mass ratio] 1.1 {ratio} Normal [facility] Comment on above: Performed By: #### B TREE TRIMMER HELPER, CMP, CMADM #### [facility] [address] [place] [address] Dr. Abimael Floyd ALP [Catalytic activity/Vol] 115 U/L Normal 46-116 [facility] Comment on above: Performed By: #### B TREE TRIMMER HELPER, CMP, CMADM #### [facility] [address] [place] [address] Dr. Abimael Floyd ALT [Catalytic activity/Vol] 15 U/L Normal 14-59 [facility] Comment on above: Performed By: #### B TREE TRIMMER HELPER, CMP, CMADM #### [facility] [address] [address] [address] Abimael Floyd Anion gap [Moles/Vol] 10.4 mmol/L Normal [facility] Comment on above: Performed By: #### B TREE TRIMMER HELPER, CMP, CMADM #### [facility] [address] [address] [address] Abimael Floyd AST [Catalytic activity/Vol] 14 U/L Critically low 15-37 [facility] Comment on above: Performed By: #### B TREE TRIMMER HELPER, CMP, CMADM #### [facility] [address] [place] [address] Dr. Abimael Floyd Bilirubin [Mass/Vol] 1.0 mg/dL Normal 0.2-1.0 [facility] Comment on above: Performed By: #### B TREE TRIMMER HELPER, CMP, CMADM #### [facility] [address] [place] [address] Dr. Abimael Floyd Calcium [Mass/Vol] 9.3 mg/dL Normal 8.5-10.1 [facility] Comment on above: Performed By: #### B TREE TRIMMER HELPER, CMP, CMADM #### [facility] [address] [address] [address] Abimael Floyd Chloride [Moles/Vol] 103 mmol/L Normal 98-107 [facility] Comment on above: Performed By: #### B TREE TRIMMER HELPER, CMP, CMADM #### [facility] [address] [address] [address] Abimael Floyd CO2 [Moles/Vol] 26.6 mmol/L Normal 21.0-32.0 [facility] Comment on above: Performed By: #### B TREE TRIMMER HELPER, CMP, CMADM #### [facility] [address] [place] [address] Dr. Abimael Floyd Creatinine [Mass/Vol] 1.03 mg/dL Critically high 0.55-1.02 [facility] Comment on above: Performed By: #### B TREE TRIMMER HELPER, CMP, CMADM #### [facility] [address] [address] [address] Abimael Floyd EGFR-AF SURINAMESE >60 Normal >=60 [facility] Comment on above: Performed By: #### B TREE TRIMMER HELPER, CMP, CMADM #### [facility] [address] [place] [address] Dr. Abimael Floyd EGFR-NON AF SURINAMESE 53 mL/min/1.73m2 Critically low >=60 [facility] Comment on above: Performed By: #### B TREE TRIMMER HELPER, CMP, CMADM #### [facility] [address] [address] [address] Abimael Floyd Globulin (S) [Mass/Vol] 3.5 g/dL Normal [facility] Comment on above: Performed By: #### B TREE TRIMMER HELPER, CMP, CMADM #### [facility] [address] [address] [address] Abimael Floyd Glucose [Mass/Vol] 144 mg/dL Critically high 74-106 [facility] Comment on above: Performed By: #### B TREE TRIMMER HELPER, CMP, CMADM #### [facility] [address] [address] [address] Abimael Floyd Potassium [Moles/Vol] 4.0 mmol/L Normal 3.5-5.1 [facility] Comment on above: Performed By: #### B TREE TRIMMER HELPER, CMP, CMADM #### [facility] [address] [address] [address] Abimael Floyd Protein [Mass/Vol] 7.5 g/dL Normal 6.4-8.2 [facility] Comment on above: Performed By: #### B TREE TRIMMER HELPER, CMP, CMADM #### [facility] [address] [address] [address] Abimael Floyd Sodium [Moles/Vol] 136 mmol/L Normal 136-145 [facility] Comment on above: Performed By: #### B TREE TRIMMER HELPER, CMP, CMADM #### [facility] [address] [address] [address] Abimael Floyd Urea nitrogen [Mass/Vol] 26.0 mg/dL Critically high 7.0-[address] [facility] Comment on above: Performed By: #### B TREE TRIMMER HELPER, CMP, CMADM #### [facility] [address] [address] [address] Abimael Floyd Urea nitrogen/Creatinine [Mass ratio] 25.2 mg/mg Normal [facility] Comment on above: Performed By: #### B TREE TRIMMER HELPER, CMP, CMADM #### [facility] [address] [address] [address] Abimael Floyd XR CHEST 1 Von [...] CHLOÉ DARBY Date: 2022-03-13 12:14 Normal [facility] XR Shoulder Complete Left*on 12-11-2021 XR Shoulder [...] by Raphael Jones on 12/11/2021 1357 Normal [facility] XR Shoulder Complete Right*o n 12-11-2021 XR Shoulder Complete Right* Please see the left shoulder x-ray report from this same date Report reported and signed by Raphael Jones on 12/11/2021 1356 Normal [facility] Comprehensive Metabolic Pane juan m 06-17-2021 Albumin [Mass/Vol] 4.7 g/dL Normal 3.6-5.1 [facility] Comment on above: Performed By: #### C BRAYDEN, LIPD #### [facility] [address] [place], [place] [id number] Albumin/Globulin [Mass ratio] 2.4 {ratio} Normal 1.0-2.5 [facility] Comment on above: Performed By: #### C BRAYDEN LIPD #### [facility] [address] [place], [place] [id number] ALP [Catalytic activity/Vol] 111 U/L Normal 35-119 [facility] Comment on above: Performed By: #### C BRAYDEN, LIPD #### [facility] [address] [place], [place] [id number] ALT [Catalytic activity/Vol] 12 U/L Normal 6-33 [facility] Comment on above: Result Comment: 03/20 Female reference range changed. Performed By: #### C BRAYDEN LIPD #### [facility] [address] [place], [place] [id number] Anion gap [Moles/Vol] 16 mmol/L Normal 12-20 [facility] Comment on above: Result Comment: Effe ctive 04/25/2019 reference range changed. Performed By: #### C BRAYDEN LIPD #### [facility] [address] [place], [place] [id number] AST [Catalytic activity/Vol] 12 U/L Normal 9-34 [facility] Comment on above: Performed By: #### C ANGELINE OWEN #### [facility] [address] [place], [place] [id number] Bilirubin [Mass/Vol] 0.66 mg/dL Normal 0.30-1.20 [facility] Comment on above: Performed By: #### C BRAYDEN LIPRobby #### [facility] [address] [place], [place] [id number] BUN/CREA 31 Ratio High 6-22 [facility] Comment on above: Performed By: #### C ANGELINE OWEN #### [facility] [address] [place], [place] [id number] Calcium [Mass/Vol] 9.9 mg/dL Normal 8.6-10.2 [facility] Comment on above: Performed By: #### C BRAYDEN LIPRobby #### [facility] [address] [place], [place] [id number] Chloride [Moles/Vol] 106 mmol/L Normal 98-107 [facility] Comment on above: Performed By: #### C ANGELINE OWEN #### [facility] [address] [place], [place] [id number] CO2 [Moles/Vol] 23 mmol/L Normal 20-31 [facility] Comment on above: Performed By: #### C BRAYDEN LIPRobby #### [facility] [address] [place], [place] [id number] Creatinine [Mass/Vol] 0.8 mg/dL Normal 0.6-1.4 [facility] Comment on above: Performed By: #### C BRAYDEN LIPRobby #### [facility] [address] [place], [place] [id number] eGFRAA 84 mL/min/1.73m2 Normal >60 [facility] Comment on above: Performed By: #### C BRAYDEN LIPRobby #### [facility] [address] [place], [place] [id number] eGFRNAA 70 mL/min/1.73m2 Normal >60 [facility] [facility] Comment on above: Performed By: #### C BRAYDEN, LIPD #### [facility] [address] [place], [place] [id number] Globulin (S) [Mass/Vol] 2.0 g/dL Normal 1.9-3.7 [facility] [employer] [facility] Comment on above: Performed By: #### C BRAYDEN, LIPD #### [facility] [address] [place], [place] [id number] Glucose [Mass/Vol] 102 mg/dL High 65-99 Padmini [facility] [employer] [facility] Comment on above: Result Comment: For FASTING Glucose --- ADA reference ranges: Normal 65-99 mg/dl Prediabetes 100-125 Diabetes >/= 126 Performed By: #### C BRAYDEN, LIPD #### [facility] [address] [place], [place] [id number] Potassium [Moles/Vol] 4.4 mmol/L Normal 3.5-5.5 [facility] Comment on above: Performed By: #### C BRAYDEN, LIPD #### [facility] [address] [place], [place] [id number] Protein [Mass/Vol] 6.7 g/dL Normal 6.1-8.1 [facility] [employer] Comment on above: Performed By: #### C BRAYDEN LIPD #### [facility] [address] [place], [place] [id number] Sodium [Moles/Vol] 141 mmol/L Normal 135-146 [facility] [employer] Comment on above: Performed By: #### C BRAYDEN, LIPD #### [facility] [address] [place], [place] [id number] Urea nitrogen [Mass/Vol] 25 mg/dL Normal 7-25 [facility] [employer] Comment on above: Performed By: #### C BRAYDEN LIPD #### [facility] [address] [place], [place] [id number] Lipid Panelon 06-17-2021 Cholesterol [Mass/Vol] 268 mg/dL High 125-200 [facility] Comment on above: Result Comment: Low risk < 200mg/dL Borderline risk 201-239 mg/dl High risk > or equal to 240 Performed By: #### C BRAYDEN LIPRobby #### [facility] [address], [place] [id number] Cholesterol in HDL [Mass/Vol] 62 mg/dL Normal >40 [facility] Comment on above: Result Comment: High Cardiovascular Risk HDL <40 mg/dL Low Cardiovascular Risk HDL > or equal to 60 mg/dl Performed By: #### C BRAYDEN, LIPD #### [facility] [address] [place], [place] [id number] Cholesterol in LDL [Mass/Vol] 184 mg/dL Normal [facility] Comment on above: Result Comment: LDL ATP III CLASSIFICATION LDL less than 100 mg/dl Optimal LDL 100-129 mg/dl Near or above optimal LDL 130-159 Borderline high LDL 160-189 High LDL greater than 189 mg/dl Very High Performed By: #### C BRAYDEN, LIPRobby #### [facility] [address] [place], [place] [id number] Cholesterol in VLDL [Mass/Vol] 22 mg/dL Normal [facility] [employer] Comment on above: Performed By: #### C BRAYDEN LIPD #### [facility] [address] [place], [place] [id number] Cholesterol.total/Choles terol in HDL [Mass ratio] 4 {ratio} Normal [facility] Comment on above: Performed By: #### C BRAYDEN LIPRobby #### [facility] [address] [place], [place] [id number] Triglyceride [Mass/Vol] 108 mg/dL Normal 30-150 [facility] Comment on above: Result Comment: TRIG ATPIII CLASSIFICATIONS TRIG less than 150 mg/dl Normal TRIG 150-199 mg/dl Borderline High TRIG 200-500 mg/dl High TRIG greather than 500 mg/dl Very High Performed By: #### C BRAYDEN, LIPD #### [facility] [address] [place], [place] [id number] Gillian 02-04-2021 CNOV Office Visit (KARLAMN) LEIA EWING ([id number]) 1950 F Date Time Provider Department 02/04/21 [...] previously because of the arthritic changes near [id number]-kv-lois of the lateral compartment she will have [...] Has a valgus aligned knee with near [id number] lateral compartment Follow up: As needed consider cortisone injection Films prior to visit: No additional imaging warranted. SIGNATURE: Yonas Luciano PA-C PATIENT NAME: Leia Ewing DATE: February 04, 2021 TIME: 2:40 PM Referri (more content not included)... Normal [facility] CNOVon 01-14-2021 CNOV Office Visit (ORTHMN) LEIA EWING ([id number]) 1950 F Date Time Provider Department 01/14/21 [...] mild Effusion: effusion present Assessment/Plan ASSESSMENT Diagnosis (S83.294D) Sprain of medial collateral ligament of left [...] - asp (more content not included)... Normal [facility] CNCOon 12-13-2020 CNCO Letter Text Normal [facility] CNOVon 11-02-2020 CNOV Office Visit (ORTHMN) GUCCILEIA PEREZ ([id number]) 1950 F Date Time Provider Department 11/02/20 [...] and sleeping. Follow up: six weeks con environmental services lead Cortisone injection Films prior to visit: If this regimen does not provide pain relief, we will investigate further with advanced imaging. SIGNATURE: Yoans Luciano PA-C PATIENT NAME: Leia Ewing DATE: November 02, 2020 TIME: 1:45 PM Daiana Bond [place] 11/02/2020 2:29 PM Signed Ms.. Ewing presents today for presents today for the application of a brace. Hinged Knee Brace was applied to the patient?s left knee. PowerStep Inserts were also given to the pa (more content not included)... Normal [facility] XR KNEE 4V AP/PA BOTH+LAT/ME R LTon [...] more advanced at the right patellofemoral compartment. Refrigerating Technician: BRIAN Transcribe Date/Time: Nov 02 2020 1:37P Dictated by : ERVIN AIKEN MD This examination was interpreted and the report reviewed and electronically signed by: ERVIN AIKEN MD on Nov 02 2020 1:38PM EST [id number] Normal [facility] Vital Signs Date Time Vital Sign Value Performing Clinician Facility 02-18-2023 11:45-0400 Body height 175.3 cm Angela Landry DO Work Phone: [facility] 02-18-2023 11:45-0400 Body mass index (BMI) [Ratio] 35.88 kg/m2 Angela Landry DO Work Phone: [facility] 02-18-2023 11:45-0400 Body weight 110.22 kg Angela Landry DO Work Phone: [facility] 02-18-2023 11:45-0400 Diastolic blood pressure 60 mm[Hg] Angela Landry DO Work Phone: [facility] 02-18-2023 11:45-0400 Heart rate 60 /min Angela Landry DO Work Phone: [facility] 02-18-2023 11:45-0400 Systolic blood pressure 100 mm[Hg] Angela Landry DO Work Phone: [facility] 12-27-2022 12:25-0400 Body height 175.26 cm Janette David Other [employer] Other 12-27-2022 12:25-0400 Body mass index (BMI) [Ratio] 35.23 kg/m2 Janette Hernandez Other [employer] Other 12-27-2022 12:25-0400 Body temperature 96.8 [degF] Janette Hernandez Other [employer] Other 12-27-2022 12:25-0400 Body weight 108.23 kg Janette Hernandez Other [employer] Other 12-27-2022 12:25-0400 Diastolic blood pressure 80 mm[Hg] Janette Hernandez Other [employer] Other 12-27-2022 12:25-0400 Respiratory rate 18 /min Janette Hernandez Other [employer] Other 12-27-2022 12:25-0400 SaO2% (BldA) [Mass fraction] 96 % Janette Hernandez Other [employer] Other 12-27-2022 12:25-0400 Systolic blood pressure 130 mm[Hg] Janette Hernandez Other [employer] Other 08-20-2022 11:17-0400 Body height 175.26 cm Xavier Robbins [facility] Work Phone: 08-20-2022 11:17-0400 Body mass index (BMI) [Ratio] 36.18 kg/m2 Xavier Robbins Work Phone: [facility] [address] DO Work Phone: 08-20-2022 11:17-0400 Body surface area Derived from formula 2.25 m2 Xavier Aguilaryer Work Phone: [facility] DO Work Phone: 08-20-2022 11:17-0400 Body weight 111.13 kg Edalejandro Aguilaryer Work Phone: [facility] DO Work Phone: 08-20-2022 11:17-0400 Diastolic blood pressure 72 mm[Hg] Xavier Aguilaryer Work Phone: [facility] DO Work Phone: 08-20-2022 11:17-0400 Heart rate 68 /min Xavier Aguilaryer Work Phone: [facility] DO Work Phone: 08-20-2022 11:17-0400 Systolic blood pressure 122 mm[Hg] Xavier Aguilaryer Work Phone: [facility] [address] DO Work Phone: 03-27-2022 08:53-0500 Body height 175.26 cm Xavier Aguilaryer Work Phone: [facility] DO Work Phone: 03-27-2022 08:53-0500 Body mass index (BMI) [Ratio] 36.77 kg/m2 Xavier Aguilaryer Work Phone: [facility] DO Work Phone: 03-27-2022 08:53-0500 Body surface area Derived from formula 2.27 m2 Xavier Robbins Work Phone: [facility] DO Work Phone: 03-27-2022 08:53-0500 Body weight 112.95 kg Xavier Robbins Work Phone: [facility] DO Work Phone: 03-27-2022 08:53-0500 Diastolic blood pressure 72 mm[Hg] Xavier Aguilaryer Work Phone: [facility] DO Work Phone: 03-27-2022 08:53-0500 Heart rate 78 /min Xavier Aguilaryer Work Phone: [facility] DO Work Phone: 03-27-2022 08:53-0500 Systolic blood pressure 114 mm[Hg] Xavier Robbins Work Phone: [facility] DO Work Phone: 03-14-2022 14:00-0500 Diastolic blood pressure 76 mm[Hg] MD Dario Forman Work Phone: [facility] 03-14-2022 14:00-0500 Heart rate 66 /min MD Dario Forman Work Phone: [facility] 03-14-2022 14:00-0500 Respiratory rate 16 /min MD Dario Forman Work Phone: [facility] 03-14-2022 14:00-0500 SaO2% (BldA) [Mass fraction] 96 % MD Dario Forman Work Phone: [facility] 03-14-2022 14:00-0500 Systolic blood pressure 173 mm[Hg] MD Dario Forman Work Phone: [facility] 03-14-2022 11:59-0500 Body temperature 98.2 [degF] MD Dario Forman Work Phone: [facility] 03-14-2022 11:57-0500 Body height 175.26 cm MD Dario Forman Work Phone: [facility] 03-14-2022 06:00-0500 Body weight 114.9 kg MD Dario Forman Work Phone: [facility] 03-14-2022 00:00-0500 65 1 Xavier Robbins Work Phone: [facility] 250 DO Work Phone: Comment on above: [email or web address] 03-13-2022 14:45-0500 Inhaled oxygen flow rate 2 L/min MD Dario Forman Work Phone: [facility] Encounters Encounter Date Encounter Type Care Provider Facility Start: 05-06-2023 End: 05-07-2023 ambulatory MARK VAN Not Available Start: 03-17-2023 End: 03-17-2023 ambulatory XAVIER ROBBINS Not Available Start: 03-09-2023 End: 03-09-2023 ambulatory XAVIER ROBBINS Not Available Start: 02-18-2023 End: 02-18-2023 ambulatory [facility] Start: 02-18-2023 End: 02-18-2023 Office outpatient visit 15 minutes Angela Landry DO Work Phone: [facility] Comment on above: ASHD (arteriosclerot ic heart disease); History of myocardial infarction; Status post insertion of drug eluting coronary artery stent; Class 2 obesity due to excess calories with body mass index (BMI) of 36.0 to 36.9 in adult, unspecified whether serious comorbidity present; SOB (shortness of breath) on exertion Start: 12-27-2022 End: 12-27-2022 ambulatory Janette Hernandez Other [employer] Other Start: 12-27-2022 Office outpatient vi sit 15 minutes Janette Hernandez [facility] Start: 08-20-[address] Xavier Robbins Facility: Start: 08-20-2022 Office outpatient vi sit 15 minutes Xavier Robbins Work Phone: [facility] DO Work Phone: Start: 03-27-2022 Office outpatient vi sit 25 minutes Xavier Robbins Work Phone: [facility] DO Work Phone: Start: 03-27-[address] Xavier Robbins Facility: Start: 03-14-[address] Xavier Robbins Facility:[facility] Start: 03-13-2022 End: 03-14-2022 Evaluation and management of inpatient Xavier Robbins Facility:[facility] Start: 03-13-2022 End: 03-13-2022 ambulatory UNKNOWN PROVIDER Facility:[facility] Start: 03-13-2022 End: 03-14-2022 Evaluation and management of inpatient MD Dario Forman Work Phone: [facility] Start: 03-13-2022 End: 03-13-2022 ambulatory [...] procedure 02/24/2024 11:30 AM EST Office Visit [facility] [address] [place] [id number] Angela Landry S, DO [address] [place] [address] [facility] Start: 02-18-2023 FUV, Provider: Angela Landry, Status: Pen, Time: 11:00 AM FUV, Provider: Angela Landry, Status: Pen, Time: 11:00 AM [facility] 250 DO Work Phone: Start: 12-19-2022 Influenza vaccination Influenza Vaccine (#1) [facility] Start: 08-20-2022 FUV, Provider: Angela Landry, Status: Pen, Time: 10:40 AM FUV, Provider: Angela Landry, Status: Pen, Time: 10:40 AM [facility] 250 DO Work Phone: Start: 05-27-2022 COVID-19 Vaccine (4 - Moderna series) COVID-19 Vaccine (4 - Moderna series) [facility] Start: 03-14-2022 [facility] Start: 03-13-[address] [facility] Start: 09-22-2019 Pneumococcal Vaccine: 65+ Years (2 - PCV) Pneumococcal Vaccine: 65+ Years (2 - PCV) [facility] Start: 05-12-2011 DTaP/Tdap/Td Vaccines (1 - Tdap) DTaP/Tdap/Td Vaccines (1 - Tdap) [facility] Start: 1998 Zoster Vaccines (1 of 2) Zoster Vaccines (1 of 2) [facility] Start: 1988 Screening for malignant neoplasm of breast Mammogram [facility] Start: 1966 Hepatitis C screening Hepatitis C Screening [facility] Start: 1950 Lipid panel Lipid Panel [facility] Start: 1950 Medicare Annual Wellness Visit Medicare Annual Wellness Visit (AWV) [facility] Start: 1950 Screening for malignant neoplasm of colon [facility] Start: 1950 Screening for osteoporosis Bone Density Scan [facility] Patient Education High Blood Pre ssure (DC) Heart Attack (DC) Low Salt Diet What Can Go Wrong After a Heart Attack? Lowering Your Risk of Heart Disease Aspirin to Prevent Heart Attacks and Cancer [facility] Work Phone: Patient referral [facility] Work Phone: Immunizations Immunization Date Immunization Notes Care Provider Gilmar falk 04-01-2022 influenza virus vaccine, unspecified formulation Angela Landry DO Work Phone: [facility] Work Phone: 09-21-2018 pneumococcal polysaccharide vaccine, 23 valent Janette Hernandez Other [employer] Other 05-11-2011 tetanus and diphther ia toxoids, adsorbed, preservative free, for adult use (5 Lf of tetanus toxoid and 2 Lf of diphtheria toxoid) Janette Hernandez Other [employer] Other Payers Date Payer Category Payer Medicare [id number] 2022 Self-pay 2021 Medicare [id number] 2021 Unknown 2020 Unknown [id number] 1950 Unknown [id number] 2.16.84 [id number] 1950 Unknown [id number] 2.16. [id number] 1950 Unknown [id number] 2.16. [id number] 1950 Unknown [id number] 2.16. [id number] 1950 Unknown [id number] 2.16.8 [id number] 1950 Unknown [id number] 2.16.84 [id number] 1950 Unknown [id number] 1950 Unknown [id number] [id number] Unknown [id number] 2.16.8 [id number] Social History Date Type Detail Facility Start: 03-13-2022 End: 02-18-2023 Tobacco smoking status NHIS Never smoked tobacco (finding) [facility] Start: 1950 Sex Assigned At Female [facility] Start: 02-18-2023 Caffeine use Caffeine use [facility] DO Work Phone: Start: 02-18-2023 Sex Assigned At N [facility] [employer] Other Start: 02-18-2023 Tobacco use and exposure Smokeless tobacco non-user [facility] Work Phone: Start: 02-18-2023 Alcohol intake Current drinke r of alcohol (finding) [facility] Work Phone: Start: 1950 [facility] Work Phone: Start: 02-08-2023 End: 02-18-2023 Exposure to SARS-CoV-2 (event) Not sure [facility] Medical Equipment Procedure Code Equipment Code Equipment Origin al Text Equipment Identifier Dates Drug-eluting coronary artery stent, [id number] lymer-coated ()[id number] FDA Start: 03-13-2022 Goals Date Patient Goal Desired Activity /State Functional Status Date Assessment Result Facility 03-14-2022 Functional status Patient at Baseline [facility] Work Phone: Mental Status Date Assessment Result Facility 03-14-2022 Cognitive function Cognitive Sta tus Patient at Baseline [facility] Work Phone: Clinical Notes 11-02-2020 to 02-18-2023 [...] breath) on exertion documented in this encounter [facility] Work Phone: 02-18-2023 Instructions Aries Metzger MA [...] Prevention Education Given documented in this encounter [facility] Work Phone: 12-27-2022 Evaluation note Encounter Date [...] understanding and is agreeable with treatment plan [employer] Other 11-25-2022 Discharge summary Author Dario Forman 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 EKG was consistent with acute inferior STEMI. I was contacted and the [facility] cardiac Apprise Counselor was activated. The patient was broughtdirectly to the cardiac catheterization suite for emergent treatment of acute inferolateral lateral STEMI. Please see my cardiac catheterization and PCI notes for full details of the patient's procedure. However the patient was found to have an occluded third OM branch of the left circumflex. Primary PCI was successfully performed with implantation of a single resolute [place] drug-eluting stent with moravian of JHONNY-3 flow into the target vessel. [...] with the right arm 2. Follow-up in [facility] within 10 days 3. Enrollment in [...] % (Auto) 80.0, Lymph % (Auto) 8.8, [place] % (Auto) 10.2, Eos % (Auto) 0.7, Baso % (Auto) 0.3, Neut # (Auto) 10.1 H, Lymph # (Auto) 1.1, [place] # (Auto) 1.3 H, Eos # (Auto) [...] <Electronically signed by Dario Forman MD> 03/14/22 1527 [facility] Work Phone: 1(931) 637-957811-24-2022 History and physical note Author Dario Forman [facility] March 13, 2022 2:01pm Note Date/Time March 13, 2022 1:49pm [facility] [address] [place] [address] Cardiology H&P Signed Patient: Leia Ewing MR#: [id number] : 1950 Acct:[id number] Age/Sex: 71 / F Adm Date: 2 Loc: Room: [address] [place] [address] Type: ADM IN Attending Dr: Dario Forman [...] patient's family member took her directly to [place] emergency department for evaluation. In [place] ED initial ECG showed a current of [...] secondary to the patient's urgently ill condition) [facility] Vaccinated for COVID-19?: Unknown Meds Medications and [...] Dysrhythmias Sinus rhythms and dysrhythmias: sinus rhythm DC, pacemaker, normal Myocardial infarction: inferior DC (acute or recent) A&P - Cardiology (1) [...] signed by Dario Forman MD> 03/13/22 1401 [facility] Work Phone: 1(319) 581-534511-24-2022 Procedure [facility]11-24-2022 Procedure [facility]10-18-2021 Note HNO ID: [id number] Author: Yonas Luciano PA-C Service: ? Author Type: Physician Food Safety Scientist Type: Progress Notes Filed: 02/04/2021 3:03 PM [...] previously because of the arthritic changes near [id number] of the lateral compartment she will have [...] Has a valgus aligned knee with near jjaz-bf-einw lateral compartment Follow up: As needed consider cortisone injection Films prior to visit: No additional imaging warranted. SIGNATURE: Yonas Luciano PA-C PATIENT NAME: Leia Ewing DATE: February 04, 2021 TIME: 2:40 [facility]09-27-2021 NoteHNO ID: [id number] Author: Yonas Luciano PA-C Service: ? Author Type: Physician Food Safety Scientist Type: Progress Notes Filed: 01/14/2021 12:50 PM [...] mild Effusion: effusion present Assessment/Plan ASSESSMENT Diagnosis (S86.845N) Sprain of medial collateral ligament of left [...] Ewing DATE: January 14, 2021 TIME: 12:41 [facility]07-16-2021 NoteHNO ID: [id number] Author: Daiana Bond Ma Service: ? Author [...] They are to contact casting services at [phone] with any questions. Daiana Bond [facility]07-16-2021 NoteHNO ID: [id number] Author: Yonas Luciano PA-C Service: ? Author Type: Physician Food Safety Scientist Type: Progress Notes Filed: 11/02/2020 1:57 PM [...] and sleeping. Follow up: six weeks con environmental services lead Cortisone injection Films prior to visit: If this regimen does not provide pain relief, we will investigate further with advanced imaging. SIGNATURE: Yonas Luciano PA-C PATIENT NAME: Leia Ewing DATE: November 02, 2020 TIME: 1:45 [facility]07-16-2021 NoteHNO ID: [id number] Author: RT Timo(R) Service: ? Author Type: Neuro Urologist Type: Progress Notes Filed: 11/02/2020 1:00 PM [...] Yony Racheal, RT(R) November 02, 2020 12:59 [facility] Diagnosis Onset Date Resolution Status [id number] [facility] Work Phone: Evaluation note* Diagnosis ASHD (arteriosclerotic heart disease) Coronary atherosclerosis of unspecified type of vessel, [place] or graft History of myocardial infarction Status post insertion of drug eluting coronary artery stent Class 2 obesity due to excess calories with body mass index (BMI) of 36.0 to 36.9 in adult, unspecified whether serious comorbidity present SOB (shortness of breath) on exertion Shortness of breath documented in this encounter [facility] Work Phone: History general Narrative - Reported* [...] 06/2016 Hospitalization History Rt Total Hip Replacement [facility] Novak 06/22/2017 [employer] Other Reason for referral (narrative)* Consultation (Routine) - Authorized Specialty Diagnoses / Procedures Referred By Gil morse Referred To Contact Cardiology Diagnoses ASHD (arteriosclerotic heart disease) History of myocardial infarction Status post insertion of drug eluting coronary artery stent Procedures Follow Up In Cardiology Angela Landry DO [address] [facility] [address] [place] [address] Angela Landry DO [address] [facility] [address] [place] [address] Referral ID Status Reason Start Date Expiration Date V isits Requested Visits Authorized [id number] Authorized 02/18/2023 02/18/2024 1 1 T [facility] Work Phone: Summary Purpose Family History No [...] Visit Chief Complaint Stemi Reason for Visit [id number] Chief Complaint * LEIA EWING is being seen for a 6 month follow-up of. * 71-year-old female returns for follow-up and doing well she has no cardiovascular complaints. She denies angina or nitrate usage or recurrent hospitalizations. She sustained inferior DC in February 2022 around Thanksgiving, underwent primary [...] usage or recurrent hospitalizations. She sustained inferior DC in February 2022 around [place], underwent primary [...] section and content) DATE CREATED AUTHOR 05/23/2021 [facility] DATE CREATED AUTHOR AUTHOR'S ORGANIZ ATION 12/14/[address] [facility] dical Specialist DATE CREATED AUTHOR AUTHOR'S ORGANIZ ATION 03/19/2022 [facility] DATE CREATED AUTHOR AUTHOR'S ORGANIZ ATION 03/19/2022 [facility] DATE CREATED AUTHOR AUTHOR'S ORGANIZ ATION 05/24/2022 [facility] DATE CREATED AUTHOR AUTHOR'S ORGANIZ ATION 08/22/2022 [facility] DATE CREATED AUTHOR AUTHOR'S ORGANIZ ATION 08/22/2022 [employer] DATE CREATED AUTHOR AUTHOR'S ORGANIZ ATION 02/20/2023 [facility] DATE CREATED AUTHOR AUTHOR'S ORGANIZ ATION 05/10/[address] [facility] dical Specialists EPIC Care Teams (unrecognized sec tion and content) Team Status: Inactive Member Role Status Dates Dario Forman MD Admit Provider, Attending Provider A ctive Xavier Robbins MD Primary Care Provider Active Team Status: Active Member Role Status Dates Xavier Robbins MD Primary Care Provider Active Transition Mgr Relationship Specialty Start Date End Date Xavier Robbins MD [address] [place] [address] PCP - General 03/14/22 REASON FOR [...] BE BASED ON THE PRIMARY CLINICAL RECORDS. [facility]. provides no warranty or guarantee of the accuracy or completeness of information in this document.
[2023-07-12] MEDS: TICAGRELOR 90 MG TABLET PO (21:36)
[2023-07-12] MEDS: ENOXAPARIN SODIUM 120 MG/0.8 ML SYRINGE SUBQ (21:36)
[2023-07-13] VITALS (53 sets, daily range): BP systolic 100–134; BP diastolic 55–83; PULSE 80–140; RESP 7–30; TEMP 36.6–36.7; O2SAT 94–99
[2023-07-13 05:32] LABS: Basophils Absolute Auto 0.1 10^3/uL (0.0-0.1); Basophils Percent Auto 0.3 % (0.2-2.0); Eosinophils Absolute Auto 0.1 10^3/uL (0.0-0.7); Eosinophils Percent Auto 0.5 % (0.9-7.0); Hematocrit 36.2 % (36.0-48.0); Hemoglobin 11.7 g/dL (12.0-16.0); Immature Granulocytes Pct Auto 0.5 % (0.0-0.5); Lymphocytes Absolute Auto 1.7 10^3/uL (1.2-3.8); Lymphocytes Percent Auto 8.6 % (20.5-60.0); Mean Corpuscular HGB Conc 32.3 g/dL (29.9-35.2); Mean Corpuscular Hemoglobin 30.3 pg (26.7-34.0); Mean Corpuscular Volume 93.8 fL (81.0-99.0); Mean Platelet Volume 11.2 fL (9.5-13.5); Monocytes Absolute Auto 2.4 10^3/uL (0.3-0.8); Monocytes Percent Auto 12.7 % (1.7-12.0); Neutrophils Absolute Auto 14.9 10^3/uL (1.4-6.5); Neutrophils Percent Auto 77.4 % (43.0-75.0); Platelet Count 259 10^3/uL (150-450); Red Blood Count 3.86 10^6/uL (4.20-5.40); White Blood Count 19.2 10^3/uL (4.0-11.0)
[2023-07-13 05:54] LABS: Alanine Aminotransferase 18 U/L (14-59); Albumin Globulin Ratio 0.8; Albumin Level 2.9 g/dL (3.4-5.0); Alkaline Phosphatase 96 U/L (46-116); Anion Gap 20.5; Aspartate Amino Transferase 15 U/L (15-37); BUN Creatinine Ratio 13.7; Bilirubin Total 1.3 mg/dL (0.2-1.0); Calcium 8.9 mg/dL (8.5-10.1); Carbon Dioxide 19.3 mmol/L (21.0-32.0); Chloride 102 mmol/L (98-107); Chol HDL Ratio 2.6; Cholesterol 149 mg/dL (<=200); Estimated GFR (African America 48 (>=60); Estimated GFR (Non-African Ame 40 (>=60); Globulin 3.8 g/dL; Glucose 146 mg/dL (74-106); HDL Cholesterol 58 mg/dL (40-60); LDL Cholesterol Calculated 69.8 mg/dL; Magnesium 1.9 mg/dL (1.8-2.4); Potassium 3.8 mmol/L (3.5-5.1); Sodium 138 mmol/L (136-145); Total Protein 6.7 g/dL (6.4-8.2); Triglycerides 106 mg/dL (<=150); VLDL CHOLESTEROL 21.2 mg/dL
[2023-07-13 06:00] LABS: Estimated Average Glucose 120 mg/dL; Glycohemoglobin A1C 5.8 % (4.5-6.2)
--- NOTE | 2023-07-13 06:08 | ECG_ITS ---
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
[2023-07-13] MEDS: OMEPRAZOLE 20 MG CAPSULE.DR PO (06:10)
[2023-07-13] MEDS: OXYBUTYNIN chloride 5 MG TABLET PO (08:11)
[2023-07-13] MEDS: GABAPENTIN 300 MG CAPSULE 600 MG PO (08:11)
[2023-07-13] MEDS: ATORVASTATIN CALCIUM 40 MG TABLET 80 MG PO (08:11)
[2023-07-13] MEDS: MONTELUKAST SODIUM 10 MG TABLET PO (08:11)
[2023-07-13] MEDS: SERTRALINE HCL 100 MG TABLET PO (08:12)
[2023-07-13] MEDS: TICAGRELOR 90 MG TABLET PO (08:12)
[2023-07-13] MEDS: LOSARTAN POTASSIUM 50 MG TABLET 100 MG PO (08:12)
--- NOTE | 2023-07-13 08:13 | PM.PN ---
Exam Constitutional Vital Signs, click to edit/add: Last Vital Signs Temp 98 F 07/13/23 04:07 Pulse 94 H 07/13/23 08:00 Resp 16 07/13/23 07:36 BP 134/66 07/13/23 05:54 Pulse Ox 99 07/13/23 04:07 O2 Del Method Room Air 07/13/23 04:07 Progress Note: Objective Labs Labs: Short CBC 07/12/23 07/13/23 Range/Units 11:11 03:55 WBC 16.0 H 19.2 H (4.0-11.0) 10^3/uL Hgb 11.8 L 11.7 L (12.0-16.0) g/dL Hct 36.9 36.2 (36.0-48.0) % Plt Count 191 259 (150-450) 10^3/uL BMP 07/12/23 07/13/23 11:11 03:55 Sodium 137 138 Potassium 4.1 3.8 Chloride 102 102 Carbon Dioxide 24.1 19.3 L BUN 17.0 18.0 Creatinine 1.33 H 1.31 H Glucose 194 H 146 H Calcium 8.6 8.9 Cardiac Enzymes 07/12/23 Range/Units 11:11 Total Creatine Kinase 27 (26-192) U/L CK-MB (CK-2) <0.50 (<=3.60) ng/mL Liver Function 07/12/23 07/13/23 Range/Units 11:11 03:55 Total Bilirubin 1.1 H 1.3 H (0.2-1.0) mg/dL AST 12 L 15 (15-37) U/L ALT 14 18 (14-59) U/L Alkaline Phosphatase 95 96 (46-116) U/L Albumin 2.8 L 2.9 L (3.4-5.0) g/dL Progress Note: A&P Assessment and Plan (1) Atrial fibrillation with rapid ventricular response: (2) Hypomagnesemia: (3) HTN (hypertension), benign: (4) CAD (coronary artery disease), [place] coronary artery: Qualifiers: [place] vs. transplanted heart: [place] heart Associated angina: without angina Qualified Code(s): I25.10 - Atherosclerotic heart disease of [place] coronary artery without angina pectoris (5) Hyperlipidemia: Qualifiers: Hyperlipidemia type: unspecified Qualified Code(s): E78.5 - Hyperlipidemia, unspecified (6) Depression: Qualifiers: Depression Type: unspecified Qualified Code(s): F32.A - Depression, unspecified
[2023-07-13] MEDS: ENOXAPARIN SODIUM 120 MG/0.8 ML SYRINGE SUBQ (08:14)
[2023-07-13] MEDS: METOPROLOL SUCCINATE 25 MG TAB.ER.24H PO (09:23)
[2023-07-13] MEDS: DILTIAZEM HCL 300 MG CAP.ER.24H PO (09:23)
[2023-07-13 10:40] LABS: Bilirubin Urine NEGATIVE (NEGATIVE); Blood Urine SMALL (NEGATIVE); Color Urine LT. YELLOW (YELLOW); Glucose Urine UA NEGATIVE (NEGATIVE); Ketones Urine TRACE mg/dL (NEGATIVE); Leukocyte Esterase Urine SMALL (NEGATIVE); Nitrite Urine NEGATIVE (NEGATIVE); Protein Urine NEGATIVE (NEG/TRACE); pH Urine 5.5 (5.0-9.0)
[2023-07-13 11:10] LABS: Clarity Urine SLIGHTLY CLOUDY (CLEAR); Urine Microscopic Indicated YES
[2023-07-13 11:13] LABS: Bacteria Urine LARGE #/HPF (NONE SEEN); Mucus Urine NONE SEEN (NONE SEEN); Squamous Epithelial Cell Urine FEW #/LPF (NONE/RARE); WBC Urine 20-50 #/HPF (NONE SEEN)
[2023-07-13 11:14] LABS: Urine Culture Indicated YES
--- NOTE | 2023-07-13 11:26 | CM.NOTE ---
Rounds made with Dr. Tirado, pt will discharge to home today. Pt will f/u with Dr. Canales 07/20/23 10:30.
--- NOTE | 2023-07-13 11:34 | PM.DS1 ---
DS: Providers Provider Date of admission: 07/12/23 13:32 Primary care physician: ASIA ROBBINS Admitting clinician: Josie Tirado Consults: 07/12/23 12:54 Consult to Cardiology Routine Reason for consultation: New onset A-fib Has provider been notified: No Occupational Therapy Eval and Treat Routine Reason for consultation: weakness Has provider been notified: No Physical Therapy Eval and Treat Routine Reason for consultation: weakness Has provider been notified: No Discharging clinician: Josie Tirado DS: Diagnosis Discharge Diagnosis (1) Atrial fibrillation with rapid ventricular response: (2) Hypomagnesemia: (3) HTN (hypertension), benign: (4) CAD (coronary artery disease), [place] coronary artery: Qualifiers: [place] vs. transplanted heart: [place] heart Associated angina: without angina Qualified Code(s): I25.10 - Atherosclerotic heart disease of [place] coronary artery without angina pectoris (5) Hyperlipidemia: Qualifiers: Hyperlipidemia type: unspecified Qualified Code(s): E78.5 - Hyperlipidemia, unspecified (6) Depression: Qualifiers: Depression Type: unspecified Qualified Code(s): F32.A - Depression, unspecified (7) UTI (urinary tract infection): DS: Summary Hospital Course Hospital Course: patient is a 72-year-old female with past medical history of coronary artery disease, hyperlipidemia, hypertension, depression, osteoarthritis, GERD, who presented to the ER with Afib with RVR. She had been experiencing weakness over that last few days. No prior history of Afib. Had a STEMI in 2021 ([address] Dr[address] Canales's/cardiology office) with stent of the LAD x1. She was suppose to be taken off Brilenta at 02/2023 follow up. She was placed on Cardizem drip and converted to to NSR on 10mg drip. She was then converted to oral Cardizem at 300mg daily. I have also increased her metoprolol to 50mg daily. She was placed on therapeutic Lovenox, but will be discharged on Eliquis 5mg BID. She is to stop the Brilinta and Celebrex while taking Eliquis. She also had a UTI and will be placed on Macrobid 100mg BID x 7 days. at the time of discharge she denies any chest pain. Troponins have been normal, no other events on telemetry overnight since conversion at 4 AM. Cholesterol was within normal limits, hemoglobin A1c was 5.8. Echocardiogram results are pending and these can be discussed with her head resident at follow-up. Her appointment is on 07/20/2023 at 10:[address] Canales. All other home medications are to stay the same. She is to return to the Emergency Room with any worsening symptoms. Patient recovered faster than anticipated. Status at Discharge Functional status at discharge: independent ambulation Time Spent with Patient Time attestation: Total time spent providing and/or coordinating discharge services: Time spent: greater than 30 minutes Exam Narrative Exam Narrative: General: Patient is alert, and oriented to person, place and time with abnormal facial movements, shoulder movements and eye twitching when conversing Skin: no visible rashes, or ulcers Head: atraumatic, acephalic Eyes: PERRLA, no nystagmus present, conjunctiva clear, no scleral icterus Ears: normal gross auditory acuity Neck: no masses palpated, normal thyroid Heart: Normal rate, normal rhythm, no murmurs/rubs/gallops Lungs: no audible wheezes, crackles and normal breath sounds all lung [place] Abdomen: Normal audible bowel sounds, no distension, No palpable masses, no organomegaly, no rebound/guarding/ or rigidity Musculoskeletal: no swelling bilateral lower extremities Neuro: CN II-X grossly intact Constitutional Vital Signs, click to edit/add: Last Vital Signs Temp 98.0 F 07/13/23 09:00 Pulse 89 07/13/23 10:00 Resp 16 07/13/23 07:36 BP 131/68 07/13/23 08:12 Pulse Ox 96 07/13/23 11:33 O2 Del Method Room Air 07/13/23 11:33 DS: Data Data Completed and Pending Labs on day of discharge: Labs from last 24 hours 07/13/23 07/12/23 07/12/23 03:55 13:20 12:38 WBC 19.2 H RBC 3.86 L Hgb 11.7 L Hct 36.2 MCV 93.8 MCH 30.3 MCHC 32.3 RDW 15.0 Plt Count 259 MPV 11.2 Neut % (Auto) 77.4 H Lymph % (Auto) 8.6 L [place] % (Auto) 12.7 H Eos % (Auto) 0.5 L Baso % (Auto) 0.3 Neut # (Auto) 14.9 H Lymph # (Auto) 1.7 [place] # (Auto) 2.4 H Eos # (Auto) 0.1 Baso # (Auto) 0.1 Abs Immat Gran (auto) 0.10 H Seg Neuts % (Manual) Band Neutrophils % Lymphocytes % (Manual) Monocytes % (Manual) Eosinophils % (Manual) Basophils % (Manual) Imm/Tot Granulo (auto) 0.5 Neutrophils # (Manual) Band Neutrophils # Lymphocytes # (Manual) Monocytes # (Manual) Eosinophils # (Manual) Basophils # (Manual) Sodium 138 Potassium 3.8 Chloride 102 Carbon Dioxide 19.3 L Anion Gap 20.5 BUN 18.0 Creatinine 1.31 H Est GFR ( Amer) 48 L Est GFR (Non-Af Amer) 40 L BUN/Creatinine Ratio 13.7 Glucose 146 H Estimat Average Glucose 120 Hemoglobin A1c 5.8 Lactate 1.2 Calcium 8.9 Magnesium 1.9 Total Bilirubin 1.3 H AST 15 ALT 18 Alkaline Phosphatase 96 Total Creatine Kinase CK-MB (CK-2) Myoglobin Troponin I High Sens NT-Pro-B Natriuret Pep Total Protein 6.7 Albumin 2.9 L Globulin 3.8 Albumin/Globulin Ratio 0.8 Triglycerides 106 Cholesterol 149 LDL Cholesterol, Calc 69.8 VLDL Cholesterol 21.2 HDL Cholesterol 58 Cholesterol/HDL Ratio 2.6 TSH Urine Color Urine Clarity Urine pH Ur Specific Gates Urine Protein Urine Glucose (UA) Urine Ketones Urine Occult Blood Urine Nitrite Urine Bilirubin Urine Urobilinogen Ur Leukocyte Esterase Urine RBC Urine WBC Ur Squamous Epith Cells Urine Bacteria Urine Mucus Ur Culture Indicated? Adenovirus (PCR) Not detected C. pneumoniae DNA (PCR) Not detected Coronavirus Type OC43 Not detected Coronavirus Type HKU1 Not detected Coronavirus Type 229E Not detected Coronavirus Type NL63 Not detected Human Metapneumovir PCR Not detected M. pneumoniae (PCR) Not detected Parainfluenza PCR Not detected Parainfluenza 2 (PCR) Not detected Parainfluenza 3 (PCR) Not detected Parainfluenza 4 (PCR) Not detected RSV (RT-PCR) Not detected Entero/Rhino (PCR) Not detected SARS-CoV-2 (PCR) Not detected Bordetella pertussis (PCR) Not detected B parapertussis DNA PCR Not detected Influenza Type A (PCR) Not detected Influenza Type B (PCR) Not detected 07/12/23 07/12/23 11:11 10:05 WBC RBC Hgb Hct MCV MCH MCHC RDW Plt Count MPV Neut % (Auto) Lymph % (Auto) [place] % (Auto) Eos % (Auto) Baso % (Auto) Neut # (Auto) Lymph # (Auto) [place] # (Auto) Eos # (Auto) Baso # (Auto) Abs Immat Gran (auto) Seg Neuts % (Manual) 77.0 Band Neutrophils % 5.0 Lymphocytes % (Manual) 5.0 L Monocytes % (Manual) 13.0 H Eosinophils % (Manual) 0.0 L Basophils % (Manual) 0.0 L Imm/Tot Granulo (auto) Neutrophils # (Manual) 12.32 H Band Neutrophils # 0.8 H Lymphocytes # (Manual) 0.80 L Monocytes # (Manual) 2.08 H Eosinophils # (Manual) 0.00 Basophils # (Manual) 0.00 Sodium 137 Potassium 4.1 Chloride 102 Carbon Dioxide 24.1 Anion Gap 15.0 BUN 17.0 Creatinine 1.33 H Est GFR ( Amer) 47 L Est GFR (Non-Af Amer) 39 L BUN/Creatinine Ratio 12.8 Glucose 194 H Estimat Average Glucose Hemoglobin A1c Lactate 2.1 H Calcium 8.6 Magnesium 1.4 L Total Bilirubin 1.1 H AST 12 L ALT 14 Alkaline Phosphatase 95 Total Creatine Kinase 27 CK-MB (CK-2) <0.50 Myoglobin 104 H Troponin I High Sens 16.9 NT-Pro-B Natriuret Pep 1038.0 H Total Protein 6.4 Albumin 2.8 L Globulin 3.6 Albumin/Globulin Ratio 0.8 Triglycerides Cholesterol LDL Cholesterol, Calc VLDL Cholesterol HDL Cholesterol Cholesterol/HDL Ratio TSH 2.572 Urine Color Lt. yellow Urine Clarity Slightly cloudy A Urine pH 5.5 Ur Specific [place] 1.010 Urine Protein Negative Urine Glucose (UA) Negative Urine Ketones Trace A Urine Occult Blood Small A Urine Nitrite Negative Urine Bilirubin Negative Urine Urobilinogen 1.0 Ur Leukocyte Esterase Small A Urine RBC 2-5 A Urine WBC 20-50 A Ur Squamous Epith Cells Few A Urine Bacteria Large A Urine Mucus None seen Ur Culture Indicated? Yes Adenovirus (PCR) C. pneumoniae DNA (PCR) Coronavirus Type OC43 Coronavirus Type HKU1 Coronavirus Type 229E Coronavirus Type NL63 Human Metapneumovir PCR M. pneumoniae (PCR) Parainfluenza PCR Parainfluenza 2 (PCR) Parainfluenza 3 (PCR) Parainfluenza 4 (PCR) RSV (RT-PCR) Entero/Rhino (PCR) SARS-CoV-2 (PCR) Bordetella pertussis (PCR) B parapertussis DNA PCR Influenza Type A (PCR) Influenza Type B (PCR) Discharge Plan Discharge Disposition: Home, Self-Care Discharge Medications: New nitrofurantoin monohyd/m-cryst 100 mg Capsule 100 mg PO BID 7 Days Qty: 14 0RF diltiazem HCl 300 mg Capsule,Extended Release 24hr 300 mg PO QD 30 Days Qty: 30 0RF Eliquis 5 mg Tablet 5 mg PO BID 30 Days Qty: 60 0RF metoprolol succinate 50 mg tablet extended release 24 hr 50 mg PO DAILY Qty: 30 0RF Continued sertraline 100 mg tablet 100 mg PO Q24H atorvastatin 80 mg tablet 80 mg PO DAILY calcium carbonate [Antacid (calcium carbonate)] 200 mg calcium (500 mg) tablet,chewable 200 mg PO DAILY gabapentin 600 mg tablet 600 mg PO DAILY nitroglycerin 0.4 mg tablet, sublingual 0.4 mg sublingual Q5M Rx Instructions: do not exceed 3 doses per episode omeprazole 20 mg capsule,delayed release(DR/EC) 20 mg PO DAILY oxybutynin chloride 5 mg tablet 5 mg PO DAILY losartan 100 mg tablet 100 mg PO DAILY montelukast 10 mg tablet 10 mg PO DAILY Discontinued celecoxib [Celebrex] 200 mg capsule 200 mg PO BID metoprolol succinate 25 mg tablet extended release 24 hr 25 mg PO DAILY Brilinta 90 mg tablet 90 mg PO BID Activity: increase activity as tolerated Diet: advance to your usual diet Print Language: [place] Forms: Portal Instructions Follow Up Appointments: Follow up with Dr. Canales, Movement Assembly Final Inspector on July 20, 2023 at 10:30am
--- NOTE | 2023-07-15 16:08 | CM.DCFOLLOWU ---
Person spoke with: patient How are you feeling? much better How is your pain? no pain or dizziness Did you understand your discharge instructions? yes Do you have any questions about your discharge instructions? no Were you given any prescriptions at discharge? yes Were you able to get your prescriptions filled? yes Do you understand how to take your medications as ordered? yes Do you have any questions about your follow up appointment and do you plan to keep your follow up appointment? no questions, has follow ups written down Is there anything else that you would like to discuss? no Questions/Comments/Concerns/Other: N/A
== END 2023-07-13 13:30 | disposition home or self-care (01) | DRG 309 ==
LOC: ER 12:31 → ICU 13:41
PROVIDERS: Admitting Provider Family Medicine; Emergency Provider Emergency Medicine; PCP Family Medicine; Visit Provider Family Medicine
DX: I48.91 Unspecified atrial fibrillation (principal); N39.0 Urinary tract infection, site not specified; Z66 Do not resuscitate; I12.9 Hypertensive chronic kidney disease with stage 1 through stage 4 chronic kidney disease, or unspecified chronic kidney disease; N18.9 Chronic kidney disease, unspecified; E83.42 Hypomagnesemia; I25.10 Atherosclerotic heart disease of native coronary artery without angina pectoris; E78.5 Hyperlipidemia, unspecified; F32.A Depression, unspecified; I25.2 Old myocardial infarction; Z79.899 Other long term (current) drug therapy; J45.909 Unspecified asthma, uncomplicated; M19.90 Unspecified osteoarthritis, unspecified site; K21.9 Gastro-esophageal reflux disease without esophagitis; Z95.5 Presence of coronary angioplasty implant and graft; Z88.1 Allergy status to other antibiotic agents
CPT/HCPCS: 0202U; 36415; 71045; 80053; 80061; 81001; 82550; 82553; 83036; 83605; 83735; 83874; 83880; 84443; 84484; 85007; 85025; 85027; 85610; 87086; 87150; 87186; 93005; 93306; 94761; 96365; 96366; 96367; 96368; 96372; 96376; 97165; 99285

== ENCOUNTER 2023-07-19 08:50 | Observation (INO) | payer OTHER, SELFPAY ==
[2023-07-19] VITALS (45 sets, daily range): BP systolic 111–151; BP diastolic 61–104; PULSE 67–103; TEMP 36.4–36.9; O2SAT 96–100; BMI 36.2; BMI 35.3
--- NOTE | 2023-07-19 09:05 | ECG_ITS ---
[facility] Test Date: 2023-07-19 Pat Name: LEIA EWING Department: Room: - Gender: Female Rn Lactation: : 1950 Requested By: ASIA ROBBINS Order Number: [id number] Reading MD: KIM WILLAMS Measurements Intervals [place] Rate: 79 P: -30 MS: 166 QRS: 14 QRSD: 78 T: 48 QT: 380 QTc: 414 Interpretive Statements 1100 Sinus rhythm 9110 normal ECG Compared to ECG 07/13/2023 06:12:11 Sinus tachycardia no longer present Electronically Signed On 07-20-2023 5:18:53 EDT by KIM WILLAMS
--- OUTSIDE RECORDS SUMMARY | 2023-07-19 09:06 | XMS_ITS | CCD ---
Author Organization [facility] Care Team Providers Care Claims Auditor Name Role Phone MD Dario Forman Admit Provider MD Dario Forman Attending Provider [phone] MD Xavier Robbins Primary Care Provider DR [...] Translations: [Neomycin] Drug Allergy 2 Unknown Reaction [facility] (8 sources) nickel; Translations: [Nickel] Drug Allergy 3 rash, Swelling [facility] (3 sources) erythromycin base; Translations: [Erythromycin Base] Allergy to substance 2 Unknown Reaction [facility] (4 sources) Azithromycin; Translations: [Azithromycin TABS] Drug Allergy 3 [facility] (1 source) Erythromycin Drug Allergy hives [facility] Other (1 source) Zmbcv-Rlliu-Immk myx-Pramoxine Drug allergy rash,itching [facility] Other (1 source) Azithromycin; Translations: [AZITHROMYCIN] Drug Allergy 3 [facility] 3 Repository Medications Current Medications Medication Drug Class(es) Dates Sig (Normalized) Sig (Original) [id number] 200 actuat albuterol 0.09 mg/actuat metered dose [...] food 0 Active take 1 capsule by [facility] every twenty-four hours Celecoxib 200 MG 1 [...] inhalation every eight hours as needed Ipratropium Kiron 0.02 % 2.5 ml Inhalation every 8 hrs as needed using [facility] N216, Rx Bin [id number], [id number] [id number] Mar, Not-Taking meloxicam 15 mg oral tablet [...] [Coronary atherosclerosis of unspecified type of vessel, [place] or graft] Onset: 02-18-2023 02-18-2023 Chronic Coronary [...] right shoulder] Chronic Other aftercare (1 source) 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 She sustained inferior [place] in February 2022 around [facility], underwent primary PCI of the third [...] Recorded: 20Aug2022 11:17AM Heart Rate68, L Radial Yzydtbgg164, LUE, Sitting Vlcdqxwup91, LUE, Sitting Height5 ft 9 in Kqoxej146 lb BMI Yhxfebpjmq18.18 kg/m2 BSA Calculated2.25 Tobacco Useb) No PHQ-2 [...] Aug 20 2022 12:32PM EST (Author) Normal [facility] Tobacco Screening.on 023 Fall risk assessment a) No falls within the last year -[facility] 250 DO Work Phone: Tobacco use status [facility] b) No M Merged With [facility] 250 DO Work Phone: Tobacco Screening. Yes [facility] 250 DO Work Phone: Office [...] For - Scheduling,Retrospec tive Authorization Requested for: [id number] Agreement : I agree to have my [...] Weight Tips; Status:Complete - Retrospective Authorization; Done: [id number] Some eating tips that can help you lose weight.; Status:Complete - Retrospective Authorization; Done: [id number] SocHx: Never a smoker Tobacco Use Screening; Status:Complete; Done: [id number] Patient Instructions Please bring all medicines, vitamins, and herbal supplements with you when you come to the office. Prescriptions will not be filled unless you are compliant with your follow up appointments or have a follow up appointment scheduled as per instruction of your physician. Refills should be requested at the time of your visit. Fall prevention education given Card[facility] [place] [facility]. I recommend Omeprazole 20 mg Over the counter to help with protecting stomach. Or Zantac over the counter. Follow up in 6 months Chief Complaint LEIA EWING is being seen for follow-up of a hospitalization for. 71-year-old female follows up with me for the first time following recent inferolateral ST elevation AZ in February 2022 with primary PCI of [...] negative for complaint. Vitals Vital Signs Recorded: [id number] 08:53AM Heart Rate78, R Radial Llmrgnfh441, LUE, Sitting Jkyirdhow51, LUE, Sitting Height5 ft 9 in Wdedhu164 lb (more content not included)... Normal [facility] Tobacco Screening.on 022 Adult depression screening assessment Yes [facility] 250 DO Work Phone: Adult depression screening assessment No [facility] 250 DO Work Phone: Fall risk assessment b) One or more fall s in the last year [facility] 250 DO Work Phone: Tobacco use status [facility] b) No M Merged With [facility] 250 DO Work Phone: Basophils Auto (Bld) [#/Vol] Ordered By: Dario Forman on 03-14-2022 Basophils (Bld) [#/Vol] 0.0 10*3/uL 0.0-0.2 [facility] Basophils/100 WBC Auto (Bld) Ordered By: Dario Forman on 03-14-2022 Basophils/100 WBC (Bld) 0.3 % . [facility] Body fluid albumin measureme nt (mass/volume)Ordered By: Dario Forman on 03-14-2022 Albumin (Body fld) [Mass/Vol] 3.4 g/dL 3.2-5.5 [facility] Complete Blood Count Auto Di ffon 03-14-2022 Basophils (Bld) [#/Vol] 0.0 10*3/uL Normal 0.0-0.2 [facility] Comment on above: Result Comment: PERF ORMED BY: [place] [address] PATHOLOGIST LEGEND MAKER DEE SEGUNDO M.D. Performed By: #### C MP, CBC #### [facility] [address] [place] [address] [place] Basophils/100 WBC (Bld) 0.3 % Normal . [facility] Comment on above: Performed By: #### C MP, CBC #### [facility] [address] [place] [address] [place] Eosinophils (Bld) [#/Vol] 0.1 10*3/uL Normal 0.0-0.45 [facility] Comment on above: Performed By: #### C MP, CBC #### [address] Eosinophils/100 WBC (Bld) 0.7 % Normal . [facility] Comment on above: Performed By: #### C MP, CBC #### [address] Erythrocyte distribution width (RBC) [Ratio] 14.3 % Normal 11.9-15.3 [facility] Comment on above: Performed By: #### C MP, CBC #### [address] Hematocrit (Bld) [Volume fraction] 37.1 % Normal 34.0-46.4 [facility] Comment on above: Performed By: #### C MP, CBC #### [address] Hemoglobin (Bld) [Mass/Vol] 12.0 g/dL Normal 11.8-15.4 [facility] Comment on above: Performed By: #### C MP, CBC #### [address] Lymphocytes (Bld) [#/Vol] 1.1 10*3/uL Normal 1.00-4.8 [facility] Comment on above: Performed By: #### C MP, CBC #### [address] Lymphocytes/100 WBC (Bld) 8.8 % Normal . [facility] Comment on above: Performed By: #### C MP, CBC #### [address] MCH (RBC) [Entitic mass] 29.6 pg Normal 24.7-34.3 [facility] Comment on above: Performed By: #### C MP, CBC #### [address] MCV (RBC) [Entitic vol] 91.7 fL Normal 80-100 [facility] Comment on above: Performed By: #### C MP, CBC #### [facility] [address] Mean Corpuscular HGB Conc 32.3 g/dL Normal 32.0-35.0 [facility] Comment on above: Performed By: #### C MP, CBC #### [facility] [address] [place] [address] [place] Monocytes (Bld) [#/Vol] 1.3 10*3/uL High 0.0-0.8 [facility] Comment on above: Performed By: #### C MP, CBC #### [facility] [address] [place] [address] [place] Monocytes/100 WBC (Bld) 10.2 % Normal . [facility] Comment on above: Performed By: #### C MP, CBC #### [facility] [address] Neutrophils (Bld) [#/Vol] 10.1 10*3/uL High 1.8-7.7 [facility] Comment on above: Performed By: #### C MP, CBC #### [facility] [address] [place] [address] [place] Neutrophils/100 WBC (Bld) 80.0 % Normal . [facility] Comment on above: Performed By: #### C MP, CBC #### [facility] [address] [place] [address] [place] Nucleated RBC/100 WBC (Bld) [Ratio] 0.0 % Normal 0-0.5 [facility] Comment on above: Performed By: #### C MP, CBC #### [facility] [address] [place] [address] [place] Platelet mean volume (Bld) [Entitic vol] 9.0 fL Normal 6.3-10.7 [facility] Comment on above: Performed By: #### C MP, CBC #### [facility] [address] [place] [address] [place] Platelets (Bld) [#/Vol] 258 10*3/uL Normal 150-450 [facility] Comment on above: Performed By: #### C MP, CBC #### [facility] [address] [place] [address] RBC (Bld) [#/Vol] 4.05 10*6/uL Normal 3.60-5.00 [facility] Comment on above: Performed By: #### C MP, CBC #### [address] WBC (Bld) [#/Vol] 12.6 10*3/uL High 4.5-11.0 [facility] Comment on above: Performed By: #### C MP, CBC #### [address] Comprehensive Metabolic Pane juan m 03-14-2022 Albumin [Mass/Vol] 3.4 g/dL Normal 3.2-5.5 [facility] Comment on above: Performed By: #### C MP, CBC #### [address] Albumin/Globulin [Mass ratio] 1.4 {ratio} Normal [facility] Comment on above: Performed By: #### C MP, CBC #### [address] ALP [Catalytic activity/Vol] 77 U/L Normal 32-92 [facility] Comment on above: Performed By: #### C MP, CBC #### [address] ALT [Catalytic activity/Vol] 24 U/L Normal 10-60 [facility] Comment on above: Performed By: #### C MP, CBC #### [address] Anion gap [Moles/Vol] 12.9 mmol/L Normal 6.0-15.0 [facility] Comment on above: Performed By: #### C MP, CBC #### [address] AST [Catalytic activity/Vol] 90 U/L High 10-42 [facility] Comment on above: Performed By: #### C MP, CBC #### [facility] [address] [place] [address] [place] Bilirubin [Mass/Vol] 0.9 mg/dL Normal 0.3-1.2 [facility] Comment on above: Performed By: #### C MP, CBC #### [facility] [address] [place] [address] [place] Calcium [Mass/Vol] 9.3 mg/dL Normal 8.2-10.2 [facility] Comment on above: Performed By: #### C MP, CBC #### [facility] [address] [place] [address] [place] Chloride [Moles/Vol] 108 mmol/L Normal 95-114 [facility] Comment on above: Performed By: #### C MP, CBC #### [facility] [address] CO2 [Moles/Vol] 22.3 mmol/L Normal 22.0-30.0 [facility] Comment on above: Performed By: #### C MP, CBC #### [facility] [address] [place] [address] [place] Creatinine [Mass/Vol] 0.99 mg/dL Normal 0.44-1.03 [facility] Comment on above: Performed By: #### C MP, CBC #### [facility] [address] [place] [address] [place] Creatinine Clr Calc Pharmacy 68.42 [facility] Comment on above: Result Comment: PERF ORMED BY: [place] [address] PATHOLOGIST LEGEND MAKER DEE SEGUNDO M.D. Performed By: #### C MP, CBC #### [facility] [address] Estimated GFR ( [place] > 60 [facility] Comment on above: Result Comment: GFR estimated reference range: According to KDOQI guidelines, <60 ml/min/1.73m2 is sufficient to diagnose a patient with chronic kidney disease. Performed By: #### C MP, CBC #### [facility] [address] Estimated GFR (Non- Am 55 Normal [facility] Comment on above: Performed By: #### C MP, CBC #### [facility] [address] Globulin (S) [Mass/Vol] 2.5 g/dL Normal [facility] Comment on above: Performed By: #### C MP, CBC #### [facility] [address] Glucose [Mass/Vol] 112 mg/dL High 70-100 [facility] Comment on above: Result Comment: [facility] Glucose Reference Range is dependent on time and content of last meal. Glucose of more than 200 mg/dL in a nonstressed, ambulatory subject supports the diagnosis of Diabetes Mellitus. ADA recommended reference range Performed By: #### C MP, CBC #### [address] Potassium [Moles/Vol] 4.2 mmol/L Normal 3.5-5.1 [facility] Comment on above: Performed By: #### C MP, CBC #### [address] Protein [Mass/Vol] 5.9 g/dL Low 6.1-7.9 [facility] Comment on above: Performed By: #### C MP, CBC #### [address] Sodium [Moles/Vol] 139 mmol/L Normal 136-146 [facility] Comment on above: Performed By: #### C MP, CBC #### [address] Urea nitrogen [Mass/Vol] 17 mg/dL Normal 9-23 [facility] Comment on above: Performed By: #### C MP, CBC #### [address] Creatinine and Glomerular fi ltration rate.predicted panel (S/P/Bld)Ordered By: Dario Forman on 03-14-2022 Creatinine [Mass/Vol] 0.99 mg/dL 0.44-1.03 [facility] ECG 12 lead ECGon 03-14-2022 ECG 12 [place] [address] Electrocardiograph Report Signed Patient: Leia Ewing MR#: [id number] : 1950 Acct:[id number] Age/Sex: 71 / F ADM Date: 03/13/22 Loc: Room: [address] [place] [address] Type: DIS IN Attending Dr: Dario Forman [...] change was found Confirmed by MINERVA NOLAN [facility] ([id number]) on 03/14/2022 11:13:29 AM Referred By: Electronically Signed By:BRIDGET PALMA MD [facility] Transcribed By: MUS Signed By Angela Palma MD 03/14/[address] [place] [address] ECH echo transthoracicon ECH echo transthoracic [facility] [address] [place] [id number] Echocardiogram Signed Patient: Leia Ewing MR#: [id number] : 1950 Acct:[id number] Age/Sex: 71 / F ADM Date: 03/13/22 Loc: Room: [address] [place] [address] Type: DIS IN Attending Dr: Dario Forman MD Ordering Provider: Dario Forman MD Date of Service: 03/14/22 ECH/ECH echo transthoracic: STEMI Copies to: Alexandria Mosher MD, [facility] Dario Forman MD BSA: 2.3 m2 BP: [...] 03/14/22 1028 Signed By: Alexandria Mosher MD, [facility] 03/14/22 1238 Normal [facility] Eosinophils Auto (Bld) [#/Vo l]Ordered By: Dario Forman on 03-14-2022 Eosinophils (Bld) [#/Vol] 0.1 10*3/uL 0.0-0.45 [facility] Eosinophils/100 WBC Auto (Bl d)Ordered By: Dario Forman on 03-14-2022 Eosinophils/100 WBC (Bld) 0.7 % . [facility] Erythrocyte distribution wid th Auto (RBC) [Ratio]Ordered By: Dario Forman on 03-14-2022 Erythrocyte distribution width (RBC) [Ratio] 14.3 % 11.9-15.3 [facility] Estimated glomerular filtrat ion rate (GFR) non- AmericanOrdered By: Dario Forman on 03-14-2022 GFR/1.73 sq M.predicted among non-blacks MDRD (S/P/Bld) [Vol rate/Area] 55 mL/Min [facility] Globulin Calc (S) [Mass/Vol] Ordered By: Dario Forman on 03-14-2022 Globulin (S) [Mass/Vol] 2.5 g/dL F [facility] Hematocrit Auto (Bld) [Volum e fraction]Ordered By: Dario Forman on 03-14-2022 Hematocrit (Bld) [Volume fraction] 37.1 % 34.0-46.4 [facility] Hemoglobin [Mass/volume] in BloodOrdered By: Dario Forman on 03-14-2022 Hemoglobin (Bld) [Mass/Vol] 12.0 g/dL 11.8-15.4 [facility] Laboratory - Hematology and Cell countsOrdered By: Dario Forman on 03-14-2022 Nucleated RBC/100 WBC (Bld) [Ratio] 0.0 % 0-0.5 [facility] Leukocytes [#/volume] in Blo od by Automated countOrdered By: Dario Forman on 03-14-2022 WBC (Bld) [#/Vol] 12.6 10*3/uL 4.5-11.0 [facility] Lymphocytes Auto (Bld) [#/Vo l]Ordered By: Dario Forman on 03-14-2022 Lymphocytes (Bld) [#/Vol] 1.1 10*3/uL 1.00-4.8 [facility] Lymphocytes/100 WBC Auto (Bl d)Ordered By: Dario Forman on 03-14-2022 Lymphocytes/100 WBC (Bld) 8.8 % . [facility] MCH Auto (RBC) [Entitic mass ]Ordered By: Dario Forman on 03-14-2022 MCH (RBC) [Entitic mass] 29.6 pg 24.7-34.3 [facility] MCHC Auto (RBC) [Mass/Vol]Or dered By: Dario Forman on 03-14-2022 MCHC (RBC) [Mass/Vol] 32.3 g/dL 32.0-35.0 [facility] MCV Auto (RBC) [Entitic vol] Ordered By: Dario Forman on 03-14-2022 MCV (RBC) [Entitic vol] 91.7 fL 80-100 [facility] Monocytes Auto (Bld) [#/Vol] Ordered By: Dario Forman on 03-14-2022 Monocytes (Bld) [#/Vol] 1.3 10*3/uL 0.0-0.8 [facility] Monocytes/100 WBC Auto (Bld) Ordered By: Dario Forman on 03-14-2022 Monocytes/100 WBC (Bld) 10.2 % . [facility] Neutrophils Auto (Bld) [#/Vo l]Ordered By: Dario Forman on 03-14-2022 Neutrophils (Bld) [#/Vol] 10.1 10*3/uL 1.8-7.7 [facility] Neutrophils/100 WBC Auto (Bl d)Ordered By: Dario Forman on 03-14-2022 Neutrophils/100 WBC (Bld) 80.0 % . [facility] No Panel InformationOrdered By: Dario Forman on 03-14-2022 Estimated GFR () > 60 mL/Min [facility] Comment on above: GFR estimated refere nce range: According to KDOQI guidelines, <60 ml/min/1.73m2 is sufficient to diagnose a patient with chronic kidney disease. Pharmacy Creatinine Clearance (Chem 68.42 [facility] Platelet mean volume Auto (B ld) [Entitic vol]Ordered By: Dario Forman on 03-14-2022 Platelet mean volume (Bld) [Entitic vol] 9.0 fL 6.3-10.7 [facility] Platelets Auto (Bld) [#/Vol] Ordered By: Dario Forman on 03-14-2022 Platelets (Bld) [#/Vol] 258 10*3/uL 150-450 [facility] Protein [Mass/volume] in Ser um or PlasmaOrdered By: Dario Forman on 03-14-2022 Protein [Mass/Vol] 5.9 g/dL 6.1-7.9 [facility] RBC Auto (Bld) [#/Vol]Ordere d By: Dario Forman on 03-14-2022 RBC (Bld) [#/Vol] 4.05 10*6/uL 3.60-5.00 [facility] Serum or plasma alanine mathis otransferase measurement without P-5'-P (enzymatic activiOrdered By: Dario Forman on 03-14-2022 ALT No additional P-5'-P [Catalytic activity/Vol] 24 U/L 1060 [facility] Serum or plasma albumin/glob ulin mass ratioOrdered By: Dario Forman on 03-14-2022 Albumin/Globulin [Mass ratio] 1.4 {ratio} [facility] Serum or plasma alkaline shubham sphatase measurement (enzymatic activity/volume)Ordered By: Dario Forman on 03-14-2022 ALP [Catalytic activity/Vol] 77 U/L 32-92 [facility] Serum or plasma anion gap de terminationOrdered By: Dario Forman on 03-14-2022 Anion gap [Moles/Vol] 12.9 mmol/L 6.0-15.0 [facility] Serum or plasma aspartate am inotransferase measurement (enzymatic activity/volume)Ordered By: Dario Forman on 03-14-2022 AST [Catalytic activity/Vol] 90 U/L 10-42 [facility] Serum or plasma calcium akash urement (mass/volume)Ordered By: Dario Forman on 03-14-2022 Calcium [Mass/Vol] 9.3 mg/dL 8.2-10.2 [facility] Serum or plasma chloride michele surement (moles/volume)Ordered By: Dario Forman on 03-14-2022 Chloride [Moles/Vol] 108 mmol/L 95-114 [facility] Serum or plasma glucose akash urement (mass/volume)Ordered By: Dario Forman on 03-14-2022 Glucose [Mass/Vol] 112 mg/dL 70-100 [facility] Comment on above: ADA recommended refe rence rangeRandom Glucose Reference Range is dependent on time and content of last meal. Glucose of more than 200 mg/dL in a nonstressed, ambulatory subject supports the diagnosis of Diabetes Mellitus. Serum or plasma potassium me asurement (moles/volume)Ordered By: Dario Forman on 03-14-2022 Potassium [Moles/Vol] 4.2 mmol/L 3.5-5.1 [facility] Serum or plasma sodium measu rement (moles/volume)Ordered By: Dario Forman on 03-14-2022 Sodium [Moles/Vol] 139 mmol/L 136-146 [facility] Serum or plasma total biliru bin measurement (mass/volume)Ordered By: Dario Forman on 03-14-2022 Bilirubin [Mass/Vol] 0.9 mg/dL 0.3-1.2 [facility] Serum or plasma total carbon dioxide measurement (moles/volume)Ordered By: Dario Forman on 03-14-2022 CO2 [Moles/Vol] 22.3 mmol/L 22.0-30.0 [facility] Serum or plasma urea nitroge n measurement (mass/volume)Ordered By: Dario Forman on 03-14-2022 Urea nitrogen [Mass/Vol] 17 mg/dL - [facility] BNPon 03-13-2022 Natriuretic peptide B (Bld) [Mass/Vol] 281.0 pg/mL Normal <=900.0 [facility] Comment on above: Performed By: #### B AIR PURIFIER SERVICER, CMP, CMADM #### [facility] [address] [address] [address] Abimael Floyd CARDIAC ANA ADMITon 022 CK [Catalytic activity/Vol] 72 U/L Normal 26-192 [facility] Comment on above: Performed By: #### B AIR PURIFIER SERVICER, CMP, CMADM #### [facility] [address] [place] [address] Dr. Abimael Floyd CK.MB [Mass/Vol] 5.23 ng/mL Critically high <=3.60 [facility] Comment on above: Performed By: #### B AIR PURIFIER SERVICER, CMP, CMADM #### [facility] [address] [place] [address] Dr. Abimael Floyd HSTROP 729.5 pg/mL Critically high 4.0-51.3 [facility] Comment on above: Result Comment: CUT- OFF POINTS HAVE BEEN ESTABLISHED BASED ON THE FOURTH UNIVERSAL DEFINITIONS OF MYOCARDIAL INFARCTION. THE UPPER REFERENCE LIMIT (URL) OF TROPONIN, DEFINED THE 99TH PERCENTILE OF cTnI DISTRIBUTION IN A REFERENCE POPULATION, HAS BEEN CONFIRMED THE DECISION THRESHOLD FOR [place] DIAGNOSIS. Performed By: #### B AIR PURIFIER SERVICER, CMP, CMADM #### [facility] [address] [place] [address] Dr. Abimael Floyd BRITTANY 111 ng/mL Critically high 9-82 [facility] Comment on above: Performed By: #### B AIR PURIFIER SERVICER, CMP, CMADM #### [facility] [address] [place] [address] Dr. Abimael Floyd CBC AUTO DIFFon 03-13-2022 BASO # 0.1 103/ul Normal 0.0-0.1 [facility] Comment on above: Performed By: #### C BC #### [facility] [address] [place] [address] Dr. Abimael Floyd Basophils/100 WBC (Bld) 0.5 % Normal 0.2-2.0 [facility] Comment on above: Performed By: #### C BC #### [facility] [address] [place] [address] Dr. Abimael Floyd EO # 0.2 103/ul Normal 0.0-0.7 [facility] Comment on above: Performed By: #### C BC #### [facility] [address] [place] [address] Dr. Abimael Floyd Eosinophils/100 WBC (Bld) 1.4 % Normal 0.9-7.0 [facility] Comment on above: Performed By: #### C BC #### [facility] [address] [place] [address] Dr. Abimael Floyd Erythrocyte distribution width (RBC) [Ratio] 13.9 % Normal 11.0-15.0 [facility] Comment on above: Performed By: #### C BC #### [facility] [address] [place] [address] Dr. Abimael Floyd Hematocrit (Bld) [Volume fraction] 39.3 % Normal 36.0-48.0 [facility] Comment on above: Performed By: #### C BC #### [facility] [address] [place] [address] Dr. Abimael Floyd Hemoglobin (Bld) [Mass/Vol] 12.9 g/dL Normal 12.0-16.0 [facility] Comment on above: Performed By: #### C BC #### [facility] [address] [place] [address] Dr. Abimael Floyd IG # 0.03 10e3/ul Normal 0.00-0.03 [facility] Comment on above: Performed By: #### C BC #### [facility] [address] [place] [address] Dr. Abimael Floyd IG % 0.2 % Normal 0.0-0.5 [facility] Comment on above: Performed By: #### C BC #### [facility] [address] [place] [address] Dr. Abimael Floyd LYMPH # 1.1 103/ul Critically low 1.2-3.8 [facility] Comment on above: Performed By: #### C BC #### [facility] [facility] [address] [place] [address] Dr. Abimael Floyd Lymphocytes/100 WBC (Bld) 8.3 % Critically low 20.5-60.0 [facility] Comment on above: Performed By: #### C BC #### [facility] [address] [place] [address] Dr. Abimael Floyd MANUAL DIFF REQ NO Normal [facility] Comment on above: Performed By: #### C BC #### [facility] [address] [place] [address] Dr. Abimael Floyd MCH (RBC) [Entitic mass] 30.0 pg Normal 26.7-34.0 [facility] Comment on above: Performed By: #### C BC #### [facility] [address] [place] [address] Dr. Abimael Floyd MCHC (RBC) [Mass/Vol] 32.8 g/dL Normal 29.9-35.2 [facility] Comment on above: Performed By: #### C BC #### [facility] [address] [place] [address] Dr. Abimael Floyd MCV (RBC) [Entitic vol] 91.4 fL Normal 81.0-99.0 [facility] Comment on above: Performed By: #### C BC #### [facility] [address] [place] [address] Dr. Abimael Floyd MONO # 0.9 103/ul Critically high 0.3-0.8 [facility] Comment on above: Performed By: #### C BC #### [facility] [address] [place] [address] Dr. Abimael Floyd Monocytes/100 WBC (Bld) 6.8 % Normal 1.7-12.0 [facility] Comment on above: Performed By: #### C BC #### [facility] [address] [place] [address] Dr. Abimael Floyd NEUT # 10.5 103/ul Critically high 1.4-6.5 [facility] Comment on above: Performed By: #### C BC #### [facility] [address] [place] [address] Dr. Abimael Floyd Neutrophils/100 WBC (Bld) 82.8 % Critically high 43.0-75.0 [facility] Comment on above: Performed By: #### C BC #### [facility] [address] [place] [address] Dr. Abimael Floyd Platelet mean volume (Bld) [Entitic vol] 10.2 fL Normal 9.5-13.5 [facility] Comment on above: Performed By: #### C BC #### [facility] [address] [address] [address] Abimael Floyd PLT 251 103/ul Normal 150-450 [facility] Comment on above: Performed By: #### C BC #### [facility] [address] [address] [address] Abimael Floyd RBC 4.30 106/ul Normal 4.20-5.40 [facility] Comment on above: Performed By: #### C BC #### [facility] [address] [address] [address] bAimael Floyd WBC 12.7 103/ul Critically high 4.0-11.0 [facility] Comment on above: Performed By: #### C BC #### [facility] [address] [address] [address] Abimael Floyd ECG 12 lead ECGon 03-13-2022 ECG 12 lead ECG [facility] [place] [address] Electrocardiograph Report Signed Patient: Leia Ewing MR#: [id number] : 1950 Acct:[id number] Age/Sex: 71 / F ADM Date: 03/13/22 Loc: Room: [address] [place] [address] Type: DIS IN Attending Dr: Dario Forman [...] previous ECGs available Confirmed by MINERVA NOLAN [facility] ([id number]) on 03/14/2022 11:13:24 AM Referred By: Electronically Signed By:BRIDGET PALMA MD [facility] Transcribed By: MUS Signed By Angela Palma MD 03/14/22 1113 Normal [facility] PROF 14(COMP METB)on 022 Albumin [Mass/Vol] 4.0 g/dL Normal 3.4-5.0 [facility] Comment on above: Performed By: #### B AIR PURIFIER SERVICER, CMP, CMADM #### [facility] [address] [place] [address] Dr. Abimael Floyd Albumin/Globulin [Mass ratio] 1.1 {ratio} Normal [facility] Comment on above: Performed By: #### B AIR PURIFIER SERVICER, CMP, CMADM #### [facility] [address] [place] [address] Dr. Abimael Floyd ALP [Catalytic activity/Vol] 115 U/L Normal 46-116 [facility] Comment on above: Performed By: #### B AIR PURIFIER SERVICER, CMP, CMADM #### [facility] [address] [place] [address] Dr. Abimael Floyd ALT [Catalytic activity/Vol] 15 U/L Normal 14-59 [facility] Comment on above: Performed By: #### B AIR PURIFIER SERVICER, CMP, CMADM #### [facility] [address] [address] [address] Abimael Floyd Anion gap [Moles/Vol] 10.4 mmol/L Normal [facility] Comment on above: Performed By: #### B AIR PURIFIER SERVICER, CMP, CMADM #### [facility] [address] [address] [address] Abimael Floyd AST [Catalytic activity/Vol] 14 U/L Critically low 15-37 [facility] Comment on above: Performed By: #### B AIR PURIFIER SERVICER, CMP, CMADM #### [facility] [address] [place] [address] Dr. Abimael Floyd Bilirubin [Mass/Vol] 1.0 mg/dL Normal 0.2-1.0 [facility] Comment on above: Performed By: #### B AIR PURIFIER SERVICER, CMP, CMADM #### [facility] [address] [place] [address] Dr. Abimael Floyd Calcium [Mass/Vol] 9.3 mg/dL Normal 8.5-10.1 [facility] Comment on above: Performed By: #### B AIR PURIFIER SERVICER, CMP, CMADM #### [facility] [address] [address] [address] Abimael Floyd Chloride [Moles/Vol] 103 mmol/L Normal 98-107 [facility] Comment on above: Performed By: #### B AIR PURIFIER SERVICER, CMP, CMADM #### [facility] [address] [address] [address] Abimael Floyd CO2 [Moles/Vol] 26.6 mmol/L Normal 21.0-32.0 [facility] Comment on above: Performed By: #### B AIR PURIFIER SERVICER, CMP, CMADM #### [facility] [address] [place] [address] Dr. Abimael Floyd Creatinine [Mass/Vol] 1.03 mg/dL Critically high 0.55-1.02 [facility] Comment on above: Performed By: #### B AIR PURIFIER SERVICER, CMP, CMADM #### [facility] [address] [address] [address] Abimael Floyd EGFR-AF BELIZEAN >60 Normal >=60 [facility] Comment on above: Performed By: #### B AIR PURIFIER SERVICER, CMP, CMADM #### [facility] [address] [place] [address] Dr. Abimael Floyd EGFR-NON AF BELIZEAN 53 mL/min/1.73m2 Critically low >=60 [facility] Comment on above: Performed By: #### B AIR PURIFIER SERVICER, CMP, CMADM #### [facility] [address] [address] [address] Abimael Floyd Globulin (S) [Mass/Vol] 3.5 g/dL Normal [facility] Comment on above: Performed By: #### B AIR PURIFIER SERVICER, CMP, CMADM #### [facility] [address] [address] [address] Abimael Floyd Glucose [Mass/Vol] 144 mg/dL Critically high 74-106 [facility] Comment on above: Performed By: #### B AIR PURIFIER SERVICER, CMP, CMADM #### [facility] [address] [address] [address] Abimael Floyd Potassium [Moles/Vol] 4.0 mmol/L Normal 3.5-5.1 [facility] Comment on above: Performed By: #### B AIR PURIFIER SERVICER, CMP, CMADM #### [facility] [address] [address] [address] Abimael Floyd Protein [Mass/Vol] 7.5 g/dL Normal 6.4-8.2 [facility] Comment on above: Performed By: #### B AIR PURIFIER SERVICER, CMP, CMADM #### [facility] [address] [address] [address] Abimael Floyd Sodium [Moles/Vol] 136 mmol/L Normal 136-145 [facility] Comment on above: Performed By: #### B AIR PURIFIER SERVICER, CMP, CMADM #### [facility] [address] [address] [address] Abimael Floyd Urea nitrogen [Mass/Vol] 26.0 mg/dL Critically high 7.0-18 .0 [facility] Comment on above: Performed By: #### B AIR PURIFIER SERVICER, CMP, CMADM #### [facility] [address] [address] [address] Abimael Floyd Urea nitrogen/Creatinine [Mass ratio] 25.2 mg/mg Normal [facility] Comment on above: Performed By: #### B AIR PURIFIER SERVICER, CMP, CMADM #### [facility] [address] [address] [address] Abimael Floyd XR CHEST 1 Von [...] CHLOÉ DARBY Date: 2022-03-13 12:14 Normal [facility] XR Shoulder Complete Left*on 12-11-2021 XR [...] by Raphael Jones on 12/11/2021 1357 Normal [facility] XR Shoulder Complete Right*o n 12-11-2021 XR Shoulder Complete Right* Please see the left shoulder x-ray report from this same date Report reported and signed by Raphael Jones on 12/11/2021 1356 Normal [facility] Comprehensive Metabolic Pane juan m 06-17-2021 Albumin [Mass/Vol] 4.7 g/dL Normal 3.6-5.1 [facility] Comment on above: Performed By: #### C BRAYDEN, LIPD #### [facility] [address] [place], [place] [id number] Albumin/Globulin [Mass ratio] 2.4 {ratio} Normal 1.0-2.5 [facility] Comment on above: Performed By: #### C BRAYDEN LIPD #### [facility] [address] [place], [place] [id number] ALP [Catalytic activity/Vol] 111 U/L Normal 35-119 [facility] Comment on above: Performed By: #### C BRAYDEN, LIPD #### [facility] [address] [place], [place] [id number] ALT [Catalytic activity/Vol] 12 U/L Normal 6-33 [facility] Comment on above: Result Comment: 03/20 Female reference range changed. Performed By: #### C BRAYDEN LIPD #### [facility] [address] [place], [place] [id number] Anion gap [Moles/Vol] 16 mmol/L Normal 12-20 [facility] Specialist Comment on above: Result Comment: Effe ctive 04/25/2019 reference range changed. Performed By: #### C BRAYDEN LIPD #### [facility] [address] [place], [place] [id number] AST [Catalytic activity/Vol] 12 U/L Normal 9-34 [facility] Comment on above: Performed By: #### C ANGELINE OWEN #### [facility] [address] [place], [place] [id number] Bilirubin [Mass/Vol] 0.66 mg/dL Normal 0.30-1.20 [facility] Comment on above: Performed By: #### C BRAYDEN LIPRobby #### [facility] [address] [place], [place] [id number] BUN/CREA 31 Ratio High 6-22 [facility] Comment on above: Performed By: #### C ANGELINE OWEN #### [facility] [address] [place], [place] [id number] Calcium [Mass/Vol] 9.9 mg/dL Normal 8.6-10.2 [facility] Comment on above: Performed By: #### C BRAYDEN LIPRobby #### [facility] [address] [place], [place] [id number] Chloride [Moles/Vol] 106 mmol/L Normal 98-107 [facility] Comment on above: Performed By: #### C ANGELINE OWEN #### [facility] [address] [place], [place] [id number] CO2 [Moles/Vol] 23 mmol/L Normal 20-31 [facility] Comment on above: Performed By: #### C BRAYDEN LIPRobby #### [facility] [address] [place], [place] [id number] Creatinine [Mass/Vol] 0.8 mg/dL Normal 0.6-1.4 [facility] Comment on above: Performed By: #### C BRAYDEN LIPRobby #### [facility] [address] [place], [place] [id number] eGFRAA 84 mL/min/1.73m2 Normal >60 [facility] Comment on above: Performed By: #### C BRAYDEN LIPRobby #### [facility] [address] [place], [place] [id number] eGFRNAA 70 mL/min/1.73m2 Normal >60 [facility] Comment on above: Performed By: #### C BRAYDEN, LIPD #### [facility] [address] [place], [place] [id number] Globulin (S) [Mass/Vol] 2.0 g/dL Normal 1.9-3.7 [facility] Activities Coach Comment on above: Performed By: #### C BRAYDEN, LIPD #### [facility] [address] [place], [place] [id number] Glucose [Mass/Vol] 102 mg/dL High 65-99 Padmini [facility] Coach Comment on above: Result Comment: For FASTING Glucose --- ADA reference ranges: Normal 65-99 mg/dl Prediabetes 100-125 Diabetes >/= 126 Performed By: #### C BRAYDEN, LIPD #### [facility] [address] [place], [place] [id number] Potassium [Moles/Vol] 4.4 mmol/L Normal 3.5-5.5 [facility] Specialist Comment on above: Performed By: #### C BRAYDEN, LIPD #### [facility] [address] [place], [place] [id number] Protein [Mass/Vol] 6.7 g/dL Normal 6.1-8.1 [facility] Activities Coach Comment on above: Performed By: #### C BRAYDEN LIPD #### [facility] [address] [place], [place] [id number] Sodium [Moles/Vol] 141 mmol/L Normal 135-146 [facility] Comment on above: Performed By: #### C BRAYDEN, LIPD #### [facility] [address] [place], [place] [id number] Urea nitrogen [Mass/Vol] 25 mg/dL Normal 7-25 [facility] Activities Coach Comment on above: Performed By: #### C BRAYDEN LIPD #### [facility] [address] [place], [place] [id number] Lipid Panelon 06-17-2021 Cholesterol [Mass/Vol] 268 mg/dL High 125-200 [facility] Comment on above: Result Comment: Low risk < 200mg/dL Borderline risk 201-239 mg/dl High risk > or equal to 240 Performed By: #### C BRAYDEN LIPRobby #### [facility] [address] [place], [place] [id number] Cholesterol in HDL [Mass/Vol] 62 mg/dL Normal >40 [facility] Comment on above: Result Comment: High Cardiovascular Risk HDL <40 mg/dL Low Cardiovascular Risk HDL > or equal to 60 mg/dl Performed By: #### C BRAYDEN, LIPD #### [facility] [address] [place], [place] [id number] Cholesterol in LDL [Mass/Vol] 184 mg/dL Normal [facility] Comment on above: Result Comment: LDL ATP III CLASSIFICATION LDL less than 100 mg/dl Optimal LDL 100-129 mg/dl Near or above optimal LDL 130-159 Borderline high LDL 160-189 High LDL greater than 189 mg/dl Very High Performed By: #### C BRAYDEN, LIPRobby #### [facility] [address] [place], [place] [id number] Cholesterol in VLDL [Mass/Vol] 22 mg/dL Normal [facility] Comment on above: Performed By: #### C BRAYDEN LIPD #### [facility] [address] [place], [place] [id number] Cholesterol.total/Choles terol in HDL [Mass ratio] 4 {ratio} Normal [facility] Comment on above: Performed By: #### C BRAYDEN LIPRobby #### [facility] [address] [place], [place] [id number] Triglyceride [Mass/Vol] 108 mg/dL Normal 30-150 [facility] Comment on above: Result Comment: TRIG ATPIII CLASSIFICATIONS TRIG less than 150 mg/dl Normal TRIG 150-199 mg/dl Borderline High TRIG 200-500 mg/dl High TRIG greather than 500 mg/dl Very High Performed By: #### C BRAYDEN, LIPD #### [facility] [address] [place], [place] [id number] Gillian 02-04-2021 CNOV Office Visit (KARLAMN) LEIA EWING ([id number]) 1950 F Date Time Provider Department 02/04/21 [...] previously because of the arthritic changes near [id number] of the lateral compartment she will have [...] Has a valgus aligned knee with near [id number] lateral compartment Follow up: As needed consider cortisone injection Films prior to visit: No additional imaging warranted. SIGNATURE: Yonas Luciano PA-C PATIENT NAME: Leia Ewing DATE: February 04, 2021 TIME: 2:40 PM Referri (more content not included)... Normal [facility] CNOVon 01-14-2021 CNOV Office Visit (ORTHMN) LEIA EWING ([id number]) 1950 F Date Time Provider Department 01/14/21 [...] mild Effusion: effusion present Assessment/Plan ASSESSMENT Diagnosis (S83.478D) Sprain of medial collateral ligament of left [...] - asp (more content not included)... Normal [facility] CNCOon 12-13-2020 CNCO Letter Text Normal [facility] CNOVon 11-02-2020 CNOV Office Visit (ORTHMN) GUCCILEIA PEREZ ([id number]) 1950 F Date Time Provider Department 11/02/20 [...] and sleeping. Follow up: six weeks con senior patrol agent Cortisone injection Films prior to visit: If [...] the pa (more content not included)... Normal [facility] XR KNEE 4V AP/PA BOTH+LAT/ME R [...] more advanced at the right patellofemoral compartment. Cathead Worker: BRIAN Transcribe Date/Time: Nov 02 2020 1:37P Dictated by : ERVIN AIKEN MD This examination was interpreted and the report reviewed and electronically signed by: ERVIN AIKEN MD on Nov 02 2020 1:38PM EST [id number] Normal [facility] Vital Signs Date Time Vital Sign Value Performing Clinician Facility 02-18-2023 11:45-0400 Body height 175.3 cm Angela Landry DO Work Phone: [facility] 02-18-2023 11:45-0400 Body mass index (BMI) [Ratio] 35.88 kg/m2 Angela Landry DO Work Phone: [facility] 02-18-2023 11:45-0400 Body weight 110.22 kg Angela Landry DO Work Phone: [facility] 02-18-2023 11:45-0400 Diastolic blood pressure 60 mm[Hg] Angela Landry DO Work Phone: [facility] 02-18-2023 11:45-0400 Heart rate 60 /min Angela Landry DO Work Phone: [facility] 02-18-2023 11:45-0400 Systolic blood pressure 100 mm[Hg] Angela Landry DO Work Phone: [facility] 12-27-2022 12:25-0400 Body height 175.26 cm Janette David Other [facility] Other 12-27-2022 12:25-0400 Body mass index (BMI) [Ratio] 35.23 kg/m2 Janette Hernandez Other [facility] Other 12-27-2022 12:25-0400 Body temperature 96.8 [degF] Janette Hernandez Other [facility] Other 12-27-2022 12:25-0400 Body weight 108.23 kg Janette Hernandez Other [facility] Other 12-27-2022 12:25-0400 Diastolic blood pressure 80 mm[Hg] Janette Hernandez Other [facility] Other 12-27-2022 12:25-0400 Respiratory rate 18 /min Janette Hernandez Other [facility] Other 12-27-2022 12:25-0400 SaO2% (BldA) [Mass fraction] 96 % Janette Hernandez Other [facility] Other 12-27-2022 12:25-0400 Systolic blood pressure 130 mm[Hg] Janette Hernandez Other [facility] Other 08-20-2022 11:17-0400 Body height 175.26 cm Xavier Robbins Work Phone: [facility] [employer] 250 DO Work Phone: 08-20-2022 11:17-0400 Body mass index (BMI) [Ratio] 36.18 kg/m2 Xavier Robbins Work Phone: [facility] 250 DO Work Phone: 08-20-2022 11:17-0400 Body surface area Derived from formula 2.25 m2 Xavier Aguilaryer Work Phone: [facility] 250 DO Work Phone: 08-20-2022 11:17-0400 Body weight 111.13 kg Edalejandro Aguilaryer Work Phone: [facility] 250 DO Work Phone: 08-20-2022 11:17-0400 Diastolic blood pressure 72 mm[Hg] Xavier Aguilaryer Work Phone: [facility] 250 DO Work Phone: 08-20-2022 11:17-0400 Heart rate 68 /min Xavier Aguilaryer Work Phone: [facility] 250 DO Work Phone: 08-20-2022 11:17-0400 Systolic blood pressure 122 mm[Hg] Xavier Aguilaryer Work Phone: [facility] 250 DO Work Phone: 03-27-2022 08:53-0500 Body height 175.26 cm Xavier Aguilaryer Work Phone: [facility] 250 DO Work Phone: 03-27-2022 08:53-0500 Body mass index (BMI) [Ratio] 36.77 kg/m2 Xavier Aguilaryer Work Phone: [facility] 250 DO Work Phone: 03-27-2022 08:53-0500 Body surface area Derived from formula 2.27 m2 Xavier Robbins Work Phone: [facility] 250 DO Work Phone: 03-27-2022 08:53-0500 Body weight 112.95 kg Xavier Robbins Work Phone: [facility] 250 DO Work Phone: 03-27-2022 08:53-0500 Diastolic blood pressure 72 mm[Hg] Xavier Aguilaryer Work Phone: [facility] 250 DO Work Phone: 03-27-2022 08:53-0500 Heart rate 78 /min Xavier Aguilaryer Work Phone: [facility] 250 DO Work Phone: 03-27-2022 08:53-0500 Systolic blood pressure 114 mm[Hg] Xavier Robbins Work Phone: [facility] 250 DO Work Phone: 03-14-2022 14:00-0500 Diastolic blood pressure 76 mm[Hg] MD Dario Forman Work Phone: [facility] 03-14-2022 14:00-0500 Heart rate 66 /min MD Dario Forman Work Phone: [facility] 03-14-2022 14:00-0500 Respiratory rate 16 /min MD Dario Forman Work Phone: [facility] 03-14-2022 14:00-0500 SaO2% (BldA) [Mass fraction] 96 % MD Dario Forman Work Phone: [facility] 03-14-2022 14:00-0500 Systolic blood pressure 173 mm[Hg] MD Dario Forman Work Phone: [facility] 03-14-2022 11:59-0500 Body temperature 98.2 [degF] MD Dario Forman Work Phone: [facility] 03-14-2022 11:57-0500 Body height 175.26 cm MD Dario Forman Work Phone: [facility] 03-14-2022 06:00-0500 Body weight 114.9 kg MD Dario Forman Work Phone: [facility] 03-14-2022 00:00-0500 65 1 Xavier Robbins Work Phone: [facility] 250 DO Work Phone: Comment on above: [id number] 03-13-2022 14:45-0500 Inhaled oxygen flow rate 2 L/min MD Dario Forman Work Phone: [facility] Encounters Encounter Date Encounter Type Care Provider Facility Start: 05-06-2023 End: 05-07-2023 ambulatory MARK VAN Not Available Start: 03-17-2023 End: 03-17-2023 ambulatory XAVIER ROBBINS Not Available Start: 03-09-2023 End: 03-09-2023 ambulatory XAVIER ROBBINS Not Available Start: 02-18-2023 End: 02-18-2023 ambulatory [facility] Ambulatory Start: 02-18-2023 End: 02-18-2023 Office outpatient visit 15 minutes Angela Landry DO Work Phone: [facility] Comment on above: ASHD (arteriosclerot ic heart disease); History of myocardial infarction; Status post insertion of drug eluting coronary artery stent; Class 2 obesity due to excess calories with body mass index (BMI) of 36.0 to 36.9 in adult, unspecified whether serious comorbidity present; SOB (shortness of breath) on exertion Start: 12-27-2022 End: 12-27-2022 ambulatory Janette Hernandez Other [facility] Other Start: 12-27-2022 Office outpatient vi sit 15 minutes Janette Hernandez [facility] Start: 08-20-[address] Xavier Robbins Facility: Start: 08-20-2022 Office outpatient vi sit 15 minutes Xavier Robbins Work Phone: [facility] 250 DO Work Phone: Start: 03-27-2022 Office outpatient vi sit 25 minutes Xavier Robbins Work Phone: [facility] 250 DO Work Phone: Start: 03-27-[address] Xavier Robbins Facility: Start: 03-14-[address] Xavier Robbins Facility:[facility] Start: 03-13-2022 End: 03-14-2022 Evaluation and management of inpatient Xavier Robbins Facility:[facility] Start: 03-13-2022 End: 03-13-2022 ambulatory UNKNOWN PROVIDER Facility:[facility] Start: 03-13-2022 End: 03-14-2022 Evaluation and management of inpatient MD Dario Forman Work Phone: [facility] Start: 03-13-2022 End: 03-13-2022 ambulatory [...] procedure 02/24/2024 11:30 AM EST Office Visit [facility] [address] [place] [id number] Angela Landry S, DO [address] [place] [address] [facility] Start: 02-18-2023 FUV, Provider: Angela Landry, Status: Pen, Time: 11:00 AM FUV, Provider: Angela Landry, Status: Pen, Time: 11:00 AM [facility] 250 DO Work Phone: Start: 12-19-2022 Influenza vaccination Influenza Vaccine (#1) [facility] Start: 08-20-2022 FUV, Provider: Angela Landry, Status: Pen, Time: 10:40 AM FUV, Provider: Angela Landry, Status: Pen, Time: 10:40 AM [facility] 250 DO Work Phone: Start: 05-27-2022 COVID-19 Vaccine (4 - Moderna series) COVID-19 Vaccine (4 - Moderna series) [facility] Start: 03-14-2022 [facility] Start: 03-13-2022 Hospital admission [facility] Start: 09-22-2019 Pneumococcal Vaccine: 65+ Years (2 - PCV) Pneumococcal Vaccine: 65+ Years (2 - PCV) [facility] [facility] Start: 05-12-2011 DTaP/Tdap/Td Vaccines (1 - Tdap) DTaP/Tdap/Td Vaccines (1 - Tdap) [facility] Start: 1998 Zoster Vaccines (1 of 2) Zoster Vaccines (1 of 2) [facility] Start: 1988 Screening for malignant neoplasm of breast Mammogram [facility] Start: 1966 Hepatitis C screening Hepatitis C Screening [facility] Start: 1948 Lipid panel Lipid Panel [facility] Start: 1948 Medicare Annual Wellness Visit Medicare Annual Wellness Visit (AWV) [facility] Start: 1948 Screening for malignant neoplasm of colon [facility] Start: 1948 Screening for osteoporosis Bone Density Scan [facility] Patient Education High Blood Pre ssure (DC) Heart Attack (DC) Low Salt Diet What Can Go Wrong After a Heart Attack? Lowering Your Risk of Heart Disease Aspirin to Prevent Heart Attacks and Cancer [facility] Work Phone: Patient referral [facility] Work Phone: Immunizations Immunization Date Immunization Notes Care Provider Gilmar falk 04-01-2022 influenza virus vaccine, unspecified formulation Angela Landry DO Work Phone: [facility] Work Phone: 09-21-2018 pneumococcal polysaccharide vaccine, 23 valent Janette Hernandez Other [facility] Other 05-11-2011 tetanus and diphther ia toxoids, adsorbed, preservative free, for adult use (5 Lf of tetanus toxoid and 2 Lf of diphtheria toxoid) Janette Hernandez Other [facility] Other Payers Date Payer Category Payer Medicare [id number] 2022 Self-pay 2021 Medicare [id number] 2021 Unknown 2020 Unknown [id number] 40 1950 Unknown [id number] 2.16.84 [id number] 1948 Unknown [id number] 2.16. [id number] 1948 Unknown [id number] 2.16. [id number] 1948 Unknown [id number] 2.16. [id number] 1948 Unknown [id number] 2.16.8 [id number] 1948 Unknown [id number] 2.16.84 [id number] 1948 Unknown [id number] [id number] 1948 Unknown [id number] [id number] Unknown [id number] 2.16.8 [id number] Social History Date Type Detail Facility Start: 03-13-2022 End: 02-18-2023 Tobacco smoking status NHIS Never smoked tobacco (finding) [facility] Start: 1950 Sex Assigned At Female F [facility] Start: 02-18-2023 Caffeine use Caffeine use [facility] DO Work Phone: Start: 02-18-2023 Sex Assigned At N [facility] Other Start: 02-18-2023 Tobacco use and exposure Smokeless tobacco non-user [facility] Work Phone: Start: 02-18-2023 Alcohol intake Current drinke r of alcohol (finding) [facility] Work Phone: Start: 1950 [facility]: Start: 02-08-2023 End: 02-18-2023 Exposure to SARS-CoV-2 (event) Not sure [facility] Medical Equipment Procedure Code Equipment Code Equipment Origin al Text Equipment Identifier Dates Drug-eluting coronary artery stent, [id number] lymer-coated ()[id number] FDA Start: 03-13-2022 Goals Date Patient Goal Desired Activity /State Functional Status Date Assessment Result Facility 03-14-2022 Functional status Patient at Baseline [facility] Work Phone: Mental Status Date Assessment Result Facility 03-14-2022 Cognitive function Cognitive Sta tus Patient at Baseline [facility] Work Phone: Clinical Notes 11-02-2020 to 02-18-2023 [...] breath) on exertion documented in this encounter [facility] Work Phone: 02-18-2023 Instructions Aries Metzger [...] Prevention Education Given documented in this encounter [facility] Work Phone: 12-27-2022 Evaluation note Encounter [...] understanding and is agreeable with treatment plan [facility] Other 11-25-2022 Discharge summary Author Draio Forman [facility] March 14, 2022 3:25pm Note Date/Time March 14, 2022 3:10pm 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 EKG was consistent with acute inferior STEMI. I was contacted and the [facility] cardiac Home Care Coordinator was activated. The patient was broughtdirectly to the cardiac catheterization suite for emergent treatment of acute inferolateral lateral STEMI. Please see my cardiac catheterization and PCI notes for full details of the patient's procedure. However the patient was found to have an occluded third OM branch of the left circumflex. Primary PCI was successfully performed with implantation of a single resolute [place] drug-eluting stent with uatsdin of JHONNY-3 flow into the target vessel. [...] with the right arm 2. Follow-up [facility] within 10 days 3. Enrollment in phase [...] % (Auto) 80.0, Lymph % (Auto) 8.8, [place] % (Auto) 10.2, Eos % (Auto) 0.7, Baso % (Auto) 0.3, Neut # (Auto) 10.1 H, Lymph # (Auto) 1.1, [place] # (Auto) 1.3 H, Eos # (Auto) [...] <Electronically signed by Dario Forman MD> 03/14/22 1529 [facility] Work Phone: 1(392) 433-158011-24-2022 History and physical note Author Dario Forman [facility] March 13, 2022 2:01pm Note Date/Time March 13, 2022 1:49pm [facility] [address] [place] [address] Cardiology H&P Signed Patient: Leia Ewing MR#: [id number] : 1950 Acct:[id number] Age/Sex: 71 / F Adm Date: 2 Loc: Room: [address] [place] [address] Type: ADM IN Attending Dr: Dario Forman [...] patient's family member took her directly to [place] emergency department for evaluation. In [place] ED initial ECG showed a current of [...] to the patient's urgently ill condition) [facility] Vaccinated for COVID-19?: Unknown Meds Medications and [...] Dysrhythmias Sinus rhythms and dysrhythmias: sinus rhythm [place], pacemaker, normal Myocardial infarction: inferior AZ (acute or recent) A&P - Cardiology (1) [...] signed by Dario Forman MD> 03/13/22 1401 [facility] Work Phone: 1(752) 682-825311-24-2022 Procedure [facility]11-24-2022 Procedure [facility]10-18-2021 Note HNO ID: [id number] Author: Yonas Luciano PA-C Service: ? Author Type: Physician Industrial Pipefitter Journeyman Type: Progress Notes Filed: 02/04/2021 3:03 PM [...] previously because of the arthritic changes near [id number]-bh-[id number] of the lateral compartment she will have [...] Has a valgus aligned knee with near dlan-bo-ohyr lateral compartment Follow up: As needed consider cortisone injection Films prior to visit: No additional imaging warranted. SIGNATURE: Yonas Luciano PA-C PATIENT NAME: Leia Ewing DATE: February 04, 2021 TIME: 2:40 [facility]09-27-2021 NoteHNO ID: [id number] Author: Yonas Luciano PA-C Service: ? Author Type: Physician Industrial Pipefitter Journeyman Type: Progress Notes Filed: 01/14/2021 12:50 PM [...] mild Effusion: effusion present Assessment/Plan ASSESSMENT Diagnosis (S8.832O) Sprain of medial collateral ligament of left [...] Ewing DATE: January 14, 2021 TIME: 12:41 [facility]07-16-2021 NoteHNO ID: [id number] Author: Daiana Bond Ma Service: ? Author [...] They are to contact casting services at [phone] with any questions. Daiana Bond [facility]07-16-2021 NoteHNO ID: [id number] Author: Yonas Luciano PA-C Service: ? Author Type: Physician Industrial Pipefitter Journeyman Type: Progress Notes Filed: 11/02/2020 1:57 PM [...] and sleeping. Follow up: six weeks con senior patrol agent Cortisone injection Films prior to visit: If this regimen does not provide pain relief, we will investigate further with advanced imaging. SIGNATURE: Yonas Luciano PA-C PATIENT NAME: Leia Ewing DATE: November 02, 2020 TIME: 1:45 [facility]07-16-2021 NoteHNO ID: [id number] Author: RT Timo(R) Service: ? Author Type: Cylinder Inspector Type: Progress Notes Filed: 11/02/2020 1:00 PM [...] Yony Racheal, RT(R) November 02, 2020 12:59 [facility] Diagnosis Onset Date Resolution Status [id number] [facility] Work Phone: Evaluation note* Diagnosis ASHD (arteriosclerotic heart disease) Coronary atherosclerosis of unspecified type of vessel, [place] or graft History of myocardial infarction Status post insertion of drug eluting coronary artery stent Class 2 obesity due to excess calories with body mass index (BMI) of 36.0 to 36.9 in adult, unspecified whether serious comorbidity present SOB (shortness of breath) on exertion Shortness of breath documented in this encounter [facility] Work Phone: History general Narrative - [...] 06/2016 Hospitalization History Rt Total Hip Replacement [facility] Dr Novak 06/22/2017 [facility] Other Reason for referral (narrative)* Consultation (Routine) - Authorized Specialty Diagnoses / Procedures Referred By Gil morse Referred To Contact Cardiology Diagnoses ASHD (arteriosclerotic heart disease) History of myocardial infarction Status post insertion of drug eluting coronary artery stent Procedures Follow Up In Cardiology Angela Landry DO [address] [facility] [address] [place] [address] Angela Landry DO [address] [facility] [address] [place] [address] Referral ID Status Reason Start Date Expiration Date V isits Requested Visits Authorized [id number] Authorized 02/18/2023 02/18/2024 1 1 T [facility] Work Phone: Summary Purpose Family History [...] Visit Chief Complaint Stemi Reason for Visit [id number] Chief Complaint * LEIA EWING is being seen for a 6 month follow-up of. * 71-year-old female returns for follow-up and doing well she has no cardiovascular complaints. She denies angina or nitrate usage or recurrent hospitalizations. She sustained inferior AZ in February 2022 around Thanksgiving, underwent primary [...] usage or recurrent hospitalizations. She sustained inferior AZ in February 2022 around [place], underwent primary [...] section and content) DATE CREATED AUTHOR 05/23/2021 [facility] DATE CREATED AUTHOR AUTHOR'S ORGANIZ ATION 12/14/2021 [facility] DATE CREATED AUTHOR AUTHOR'S ORGANIZ ATION 03/19/2022 [facility] DATE CREATED AUTHOR AUTHOR'S ORGANIZ ATION 03/19/2022 [facility] DATE CREATED AUTHOR AUTHOR'S ORGANIZ ATION 05/24/2022 [facility] DATE CREATED AUTHOR AUTHOR'S ORGANIZ ATION 08/22/2022 [facility] DATE CREATED AUTHOR AUTHOR'S ORGANIZ ATION 08/22/2022 [facility] DATE CREATED AUTHOR AUTHOR'S ORGANIZ ATION 02/20/2023 [facility] DATE CREATED AUTHOR AUTHOR'S ORGANIZ ATION 05/10/2023 [facility] EPIC Care Teams (unrecognized sec tion and content) Team Status: Inactive Member Role Status Dates Dario Forman MD Admit Provider, Attending Provider A ctive Xavier Robbins MD Primary Care Provider Active Team Status: Active Member Role Status Dates Xavier Robbins MD Primary Care Provider Active Claims Auditor Relationship Specialty Start Date End Date Xavier Robbins MD [address] [place] [address] PCP - General 03/14/22 REASON FOR [...] BE BASED ON THE PRIMARY CLINICAL RECORDS. [facility]. provides no warranty or guarantee of the accuracy or completeness of information in this document.
[2023-07-19 09:33] LABS: Basophils Absolute Auto 0.1 10^3/uL (0.0-0.1); Basophils Percent Auto 0.5 % (0.2-2.0); Eosinophils Absolute Auto 0.2 10^3/uL (0.0-0.7); Hematocrit 35.1 % (36.0-48.0); Immature Granulocytes Pct Auto 0.6 % (0.0-0.5); Lymphocytes Absolute Auto 1.2 10^3/uL (1.2-3.8); Lymphocytes Percent Auto 7.5 % (20.5-60.0); Mean Corpuscular HGB Conc 31.3 g/dL (29.9-35.2); Mean Corpuscular Hemoglobin 30.1 pg (26.7-34.0); Mean Corpuscular Volume 95.9 fL (81.0-99.0); Mean Platelet Volume 10.2 fL (9.5-13.5); Monocytes Absolute Auto 1.2 10^3/uL (0.3-0.8); Monocytes Percent Auto 7.9 % (1.7-12.0); Neutrophils Absolute Auto 12.8 10^3/uL (1.4-6.5); Neutrophils Percent Auto 82.5 % (43.0-75.0); Platelet Count 315 10^3/uL (150-450); Red Blood Count 3.66 10^6/uL (4.20-5.40); Red Cell Distribution Width 14.4 % (11.0-15.0); White Blood Count 15.5 10^3/uL (4.0-11.0)
[2023-07-19 09:53] LABS: Bilirubin Urine NEGATIVE (NEGATIVE); Blood Urine SMALL (NEGATIVE); Clarity Urine CLEAR (CLEAR); Color Urine LT. YELLOW (YELLOW); Glucose Urine UA NEGATIVE (NEGATIVE); Ketones Urine TRACE mg/dL (NEGATIVE); Leukocyte Esterase Urine MODERATE (NEGATIVE); Nitrite Urine POSITIVE (NEGATIVE); Protein Urine 30 mg/dL (NEG/TRACE); Specific Gravity Urine 1.015 (1.005-1.025); pH Urine 7.5 (5.0-9.0)
[2023-07-19 09:58] LABS: Urine Microscopic Indicated YES
[2023-07-19 10:00] LABS: Bacteria Urine MODERATE #/HPF (NONE SEEN); Cast Seen? NONE SEEN #/LPF (NONE SEEN); Crystals Seen? None Seen #/HPF (None Seen); Mucus Urine NONE SEEN (NONE SEEN); RBC Urine 0-2 #/HPF (0-2); Squamous Epithelial Cell Urine NONE SEEN #/LPF (NONE/RARE); Urine Culture Indicated YES; WBC Urine 20-50 #/HPF (NONE SEEN)
[2023-07-19 10:01] LABS: Alanine Aminotransferase 24 U/L (14-59); Albumin Globulin Ratio 0.7; Albumin Level 2.8 g/dL (3.4-5.0); Alkaline Phosphatase 117 U/L (46-116); Anion Gap 17.6; Aspartate Amino Transferase 12 U/L (15-37); BUN Creatinine Ratio 13.4; Calcium 9.2 mg/dL (8.5-10.1); Chloride 101 mmol/L (98-107); Estimated GFR (African America 50 (>=60); Estimated GFR (Non-African Ame 41 (>=60); Globulin 4.1 g/dL; Glucose 148 mg/dL (74-106); Magnesium 1.7 mg/dL (1.8-2.4); Potassium 3.6 mmol/L (3.5-5.1); Sodium 138 mmol/L (136-145); Total Protein 6.9 g/dL (6.4-8.2); Troponin I High Sensitivity 5.5 pg/mL (4.0-51.3)
[2023-07-19] MEDS: TRAMADOL HCL 50 MG TABLET PO ×2 (10:45→20:40)
[2023-07-19] MEDS: MAGNESIUM OXIDE 400 MG TABLET PO (10:45)
--- NOTE | 2023-07-19 11:27 | ED.GENADUL1 ---
HPI HPI - General Adult General Chief complaint: Weakness Stated complaint: WEAKNESS/SHOULDER PAIN Time Seen by Provider: 07/19/23 09:05 Source: patient Mode of arrival: ambulance Limitations: no limitations History of Present Illness HPI narrative: The patient was just discharged from the hospital after being diagnosed with A-fib as well as urine infection is coming to us by the EMS after she had an episode of possible hypotension which she is is using the bathroom, the patient herself upon presentation is complaining of right shoulder pain which has been chronic but exacerbated over the last few days, according to the daughter at the bedside she mentioned that she has been weak and tired and not eating adequately since she has been discharged she also has not been able to ambulate with no help. Even with her walker the patient is not able to ambulate at baseline at this moment. Related Data Home Medications ?Medication ?Instructions ?Recorded ?Confirmed atorvastatin 80 mg tablet 80 mg PO DAILY 07/12/23 07/19/23 calcium carbonate 200 mg calcium 200 mg PO DAILY 07/12/23 07/19/23 (500 mg) chewable tablet (Antacid (calcium carbonate)) gabapentin 600 mg tablet 600 mg PO DAILY 07/12/23 07/19/23 losartan 100 mg tablet 100 mg PO DAILY 07/12/23 07/19/23 montelukast 10 mg tablet 10 mg PO DAILY 07/12/23 07/19/23 nitroglycerin 0.4 mg sublingual 0.4 mg sublingual Q5M 07/12/23 07/19/23 tablet omeprazole 20 mg capsule,delayed 20 mg PO DAILY 07/12/23 07/19/23 release oxybutynin chloride 5 mg tablet 5 mg PO DAILY 07/12/23 07/19/23 sertraline 100 mg tablet 100 mg PO Q24H 07/12/23 07/19/23 Previous Rx's ?Medication ?Instructions ?Recorded apixaban 5 mg tablet (Eliquis) 5 mg PO BID 30 days #60 tabs 07/13/23 diltiazem HCl 300 mg 300 mg PO QD 30 days #30 caps 07/13/23 capsule,extended release 24 hr metoprolol succinate 50 mg 50 mg PO DAILY #30 tabs 07/13/23 tablet,extended release 24 hr nitrofurantoin 100 mg PO BID 7 days #14 caps 07/13/23 monohydrate/macrocrystals 100 mg capsule Allergies Allergy/AdvReac Type Severity Reaction Status Date / Time azithromycin Allergy Severe Verified 07/12/23 10:52 Opioid HPI Opioid Management Most Recent Opioid Data: Last Pain Assessment 07/13/23 09:39 Last Pain Assessment 07/13/23 10:55 Last ED Pain Assessment 07/19/23 09:07 Last ORT Total Score 0 07/12/23 13:44 Last ORT Risk Category Low Risk 07/12/23 13:44 Review of Systems ROS Status of ROS 10 or more systems reviewed and unremarkable except as noted in history and below [facility] Medical History (Updated 07/19/23 @ 11:31 by Abi Mendoza MD) Depression ?F32.A - Depression, unspecified (ICD-10) Hyperlipidemia ?E78.5 - Hyperlipidemia, unspecified (ICD-10) CAD (coronary artery disease), [place] coronary artery ?I25.10 - Atherosclerotic heart disease of [place] coronary artery without angina pectoris (ICD-10) Constipation ?K59.00 - Constipation, unspecified (ICD-10) Asthma ?J45.909 - Unspecified asthma, uncomplicated (ICD-10) Myocardial infarct ?I21.9 - Acute myocardial infarction, unspecified (ICD-10) HTN (hypertension), benign ?I10 - Essential (primary) hypertension (ICD-10) Surgical History History of hip replacement, total ?Z96.649 - Presence of unspecified artificial hip joint (ICD-10) Social History Within the past year, how often did you have a drink containing alcohol: never Score interpretation: A score less than 3 is consistent with normal alcohol consumption. 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 General: Well-appearing and in no apparent distress. Skin: Warm, dry, no pallor noted. No rash. Head: Normocephalic, atraumatic. Neck: Supple, non-tender. Eye: Pupils are equal, round and EOMI. No scleral icterus. Ears, Nose, Mouth, and Throat: TM are clear, no nasal mucosal hypertrophy. Oral mucosa is moist, no posterior oropharynx erythema, uvula is mid-line Cardiovascular: Regular Rate and Rhythm without murmur, gallop or rub. Respiratory: No accessory muscle use or respiratory distress. Lungs are clear to auscultation, no wheezing, rales or rhonchi Chest Wall: no tenderness Back: No midline thoracic or lumbar vertebral tenderness. No CVA tenderness Musculoskeletal: Limitation of movement of the right shoulder due to pain no localized tenderness and no ecchymosis GI: Abdomen is soft, non-distended. Normal bowel sounds. No masses appreciated. No tenderness to palpation. No rebound, guarding, or rigidity noted. Neurological: A&O x4. No cranial nerve dysfunction observed. No truncal ataxia. Moves all extremities. Sensation intact. Psychiatric: Cooperative and interactive. Normal mood and affect. Constitutional Vital Signs, click to edit/add: Last Vital Signs Temp 97.6 F 07/19/23 08:56 Pulse 81 07/19/23 11:10 Resp 18 07/19/23 08:56 BP 148/64 H 07/19/23 11:01 Pulse Ox 100 07/19/23 11:10 O2 Del Method Room Air 07/19/23 09:07 Course Vital Signs Vital signs: Vital Signs Temperature 97.6 F 07/19/23 08:56 Pulse Rate 71 07/19/23 08:56 Respiratory Rate 18 07/19/23 08:56 Blood Pressure 143/85 H 07/19/23 08:56 Pulse Oximetry 100 07/19/23 08:56 Temperature 97.6 F 07/19/23 08:56 Pulse Rate 81 07/19/23 11:10 Respiratory Rate 18 07/19/23 08:56 Blood Pressure 148/64 H 07/19/23 11:01 Pulse Oximetry 100 07/19/23 11:10 Oxygen Delivery Method Room Air 07/19/23 09:07 Medical Decision Making MDM Narrative Medical decision making narrative: When the patient presented to us her blood pressure was within normal and that we will continue the 1 L that she received by the EMS CBC still showing leukocytosis but improved compared to when her presentation in the ER her magnesium was low with 1.7 she was provided with p.o. magnesium The patient also provided with tramadol for the pain The main reason for the patient presentation was mostly immobilization due to the generalized weakness and the deconditioning and the fact that the patient use her walker and her right shoulder right now is limited movement due to pain that she is not able to ambulate The patient will be admitted for rehab Dr. Stevens agreed with above-mentioned plan of the case was discussed with him and he also presented at the bedside for evaluation Lab Data Labs: Lab Results 07/19/23 07/19/23 Range/Units 09:20 09:30 WBC 15.5 H (4.0-11.0) 10^3/uL RBC 3.66 L (4.20-5.40) 10^6/uL Hgb 11.0 L (12.0-16.0) g/dL Hct 35.1 L (36.0-48.0) % MCV 95.9 (81.0-99.0) fL MCH 30.1 (26.7-34.0) pg MCHC 31.3 (29.9-35.2) g/dL RDW 14.4 (11.0-15.0) % Plt Count 315 (150-450) 10^3/uL MPV 10.2 (9.5-13.5) fL Neut % (Auto) 82.5 H (43.0-75.0) % Lymph % (Auto) 7.5 L (20.5-60.0) % [place] % (Auto) 7.9 (1.7-12.0) % Eos % (Auto) 1.0 (0.9-7.0) % Baso % (Auto) 0.5 (0.2-2.0) % Neut # (Auto) 12.8 H (1.4-6.5) 10^3/uL Lymph # (Auto) 1.2 (1.2-3.8) 10^3/uL [place] # (Auto) 1.2 H (0.3-0.8) 10^3/uL Eos # (Auto) 0.2 (0.0-0.7) 10^3/uL Baso # (Auto) 0.1 (0.0-0.1) 10^3/uL Abs Immat Gran (auto) 0.10 H (0.00-0.03) 10^3/uL Imm/Tot Granulo (auto) 0.6 H (0.0-0.5) % Sodium 138 (136-145) mmol/L Potassium 3.6 (3.5-5.1) mmol/L Chloride 101 (98-107) mmol/L Carbon Dioxide 23.0 (21.0-32.0) mmol/L Anion Gap 17.6 BUN 17.0 (7.0-18.0) mg/dL Creatinine 1.27 H (0.55-1.02) mg/dL Est GFR ( Amer) 50 L (>=60) Est GFR (Non-Af Amer) 41 L (>=60) BUN/Creatinine Ratio 13.4 Glucose 148 H (74-106) mg/dL Calcium 9.2 (8.5-10.1) mg/dL Magnesium 1.7 L (1.8-2.4) mg/dL Total Bilirubin 1.0 (0.2-1.0) mg/dL AST 12 L (15-37) U/L ALT 24 (14-59) U/L Alkaline Phosphatase 117 H (46-116) U/L Troponin I High Sens 5.5 (4.0-51.3) pg/mL Total Protein 6.9 (6.4-8.2) g/dL Albumin 2.8 L (3.4-5.0) g/dL Globulin 4.1 g/dL Albumin/Globulin Ratio 0.7 Urine Color Lt. yellow (YELLOW) Urine Clarity Clear (CLEAR) Urine pH 7.5 (5.0-9.0) Ur Specific [place] 1.015 (1.005-1.025) Urine Protein 30 A (NEG/TRACE) mg/dL Urine Glucose (UA) Negative (NEGATIVE) mg/dL Urine Ketones Trace A (NEGATIVE) mg/dL Urine Occult Blood Small A (NEGATIVE) Urine Nitrite Positive A (NEGATIVE) Urine Bilirubin Negative (NEGATIVE) Urine Urobilinogen 1.0 (0.2-1.0) EU/dL Ur Leukocyte Esterase Moderate A (NEGATIVE) Urine RBC 0-2 (0-2) #/HPF Urine WBC 20-50 A (NONE SEEN) #/HPF Ur Squamous Epith Cells None seen (NONE/RARE) #/LPF Urine Crystals None seen (None Seen) #/HPF Urine Bacteria Moderate A (NONE SEEN) #/HPF Urine Casts None seen (NONE SEEN) #/LPF Urine Mucus None seen (NONE SEEN) Ur Culture Indicated? Yes Discharge Plan Discharge Chief Complaint: Weakness Clinical Impression: Acute hypotension, Arthritis of shoulder, Muscular deconditioning, Bacterial UTI Patient Disposition: Admitted As Inpatient Time of Disposition Decision: 11:31
--- NOTE | 2023-07-19 13:20 | P.HP_ITS ---
HPI H&P: HPI History of Present Illness Chief complaint: WEAKNESS/SHOULDER PAIN Narrative: Patient scented to the emergency room with increasing weakness. Found to have persistent leukocytosis and likely urosepsis, not all labs are back yet When I saw patient in the emergency room, she was still somewhat uncomfortable secondary to pain. Patient with more generalized weakness. Recent diagnosis of atrial fibrillation but currently in normal sinus rhythm Opioid HPI Opioid Management Most Recent Opioid Data: Last Pain Assessment 07/13/23 09:39 Last Pain Assessment 07/13/23 10:55 Last ED Pain Assessment 07/19/23 09:07 Last ORT Total Score 0 07/12/23 13:44 Last ORT Risk Category Low Risk 07/12/23 13:44 Review of Systems ROS Status of ROS 10 or more systems reviewed and unremark able except as noted in history and below PFSH [facility] Medical History (Updated 07/19/23 @ 11:31 by Abi Mendoza MD) Depression ?F32.A - Depression, unspecified (ICD-10) Hyperlipidemia ?E78.5 - Hyperlipidemia, unspecified (ICD-10) CAD (coronary artery disease), [place] coronary artery ?I25.10 - Atherosclerotic heart disease of [place] coronary artery without angina pectoris (ICD-10) Constipation ?K59.00 - Constipation, unspecified (ICD-10) Asthma ?J45.909 - Unspecified asthma, uncomplicated (ICD-10) Myocardial infarct ?I21.9 - Acute myocardial infarction, unspecified (ICD-10) HTN (hypertension), benign ?I10 - Essential (primary) hypertension (ICD-10) Surgical History History of hip replacement, total ?Z96.649 - Presence of unspecified artificial hip joint (ICD-10) Social History Within the past year, how often did you have a drink containing alcohol: never Score interpretation: A score less than 3 is consistent with normal alcohol consumption. 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 Known occupational exposures/hazards: No Meds Home Medications and Allergies Home Medications ?Medication ?Instructions ?Recorded ?Confirmed ?Type atorvastatin 80 mg tablet 80 mg PO DAILY 07/12/23 07/19/23 History calcium carbonate 200 mg calcium 200 mg PO DAILY 07/12/23 07/19/23 History (500 mg) chewable tablet (Antacid (calcium carbonate)) gabapentin 600 mg tablet 600 mg PO DAILY 07/12/23 07/19/23 History losartan 100 mg tablet 100 mg PO DAILY 07/12/23 07/19/23 History montelukast 10 mg tablet 10 mg PO DAILY 07/12/23 07/19/23 History nitroglycerin 0.4 mg sublingual 0.4 mg sublingual Q5M 07/12/23 07/19/23 History tablet omeprazole 20 mg capsule,delayed 20 mg PO DAILY 07/12/23 07/19/23 History release oxybutynin chloride 5 mg tablet 5 mg PO DAILY 07/12/23 07/19/23 History sertraline 100 mg tablet 100 mg PO Q24H 07/12/23 07/19/23 History apixaban 5 mg tablet (Eliquis) 5 mg PO BID 30 days #60 tabs 07/13/23 07/19/23 Rx diltiazem HCl 300 mg 300 mg PO QD 30 days #30 caps 07/13/23 07/19/23 Rx capsule,extended release 24 hr metoprolol succinate 50 mg 50 mg PO DAILY #30 tabs 07/13/23 07/19/23 Rx tablet,extended release 24 hr nitrofurantoin 100 mg PO BID 7 days #14 caps 07/13/23 07/19/23 Rx monohydrate/macrocrystals 100 mg capsule Allergies Allergy/AdvReac Type Severity Reaction Status Date / Time azithromycin Allergy Severe Verified 07/12/23 10:52 Exam Constitutional Vital Signs, click to edit/add: Last Vital Signs Temp 97.6 F 07/19/23 08:56 Pulse 86 07/19/23 13:00 Resp 18 07/19/23 08:56 BP 134/104 H 07/19/23 13:00 Pulse Ox 100 07/19/23 13:00 O2 Del Method Room Air 07/19/23 09:07 Documenting provider has reviewed patient's vital signs: yes Common normals: apparent distress (Moderate painful distress) HENW[place] Common normals: normocephalic; oral mucous membranes not moist (Dry mucous membranes) Chest Common normals: inspection of chest normal Respiratory Common normals: normal respiratory effort, no retractions, no use of accessory muscles and clear to auscultation bilaterally Cardio Common normals: regular rate, regular rhythm, no gallops and no murmurs GI Common normals: Normal to inspection, nondistended, normoactive bowel sounds present, soft to palpation, non-tender and no masses Extremity Common normals: normal to inspection and full ROM Results Labs Labs: Short CBC 07/19/23 Range/Units 09:20 WBC 15.5 H (4.0-11.0) 10^3/uL Hgb 11.0 L (12.0-16.0) g/dL Hct 35.1 L (36.0-48.0) % Plt Count 315 (150-450) 10^3/uL BMP 07/19/23 09:20 Sodium 138 Potassium 3.6 Chloride 101 Carbon Dioxide 23.0 BUN 17.0 Creatinine 1.27 H Glucose 148 H Calcium 9.2 Liver Function 07/19/23 Range/Units 09:20 Total Bilirubin 1.0 (0.2-1.0) mg/dL AST 12 L (15-37) U/L ALT 24 (14-59) U/L Alkaline Phosphatase 117 H (46-116) U/L Albumin 2.8 L (3.4-5.0) g/dL Urine 07/19/23 Range/Units 09:30 Urine Color Lt. yellow (YELLOW) Urine Clarity Clear (CLEAR) Urine pH 7.5 (5.0-9.0) Ur Specific [place] 1.015 (1.005-1.025) Urine Protein 30 A (NEG/TRACE) mg/dL Urine Glucose (UA) Negative (NEGATIVE) mg/dL Assessment and Plan Assessment and Plan (1) UTI (urinary tract infection): Plan Uncontrolled hypertension, increasing leukocytosis, lactate and BNP are still pending-possible urosepsis with failed outpatient treatment with Macrobid. Repeat cultures blood and urine are pending. Broad-spectrum coverage due to possible resistance pattern. Levaquin and Rocephin. Right shoulder pain-physical therapy to work with patient. No fall or injury currently Generalized weakness secondary to the above-physical therapy to work with patient. For patient safety she may benefit from rehab. Iron deficiency anemia-fairly stable but will monitor daily CKD 3-monitor daily Hypomagnesemia-supplement Moderate protein calorie malnutrition-diet supplement Inpatient criteria: Patient will be placed as inpatient, failed outpatient treatment of acute UTI and likely urosepsis and generalized weakness and persisting leukocytosis-necessary medical treatment will span more than 2 midnights. Based on further testing and cultures 3 to 4 days a is highly likely Urinary Catheter Management Urinary Catheter Management Straight: Cath placed during this visit: yes Urethral indwelling: No Insertion date: 07/19/23 Insertion time: 09:36
[2023-07-19 13:40] LABS: Lactate/Lactic Acid 1.6 mmol/L (0.4-2.0)
--- OUTSIDE RECORDS SUMMARY | 2023-07-19 14:23 | XMS_ITS | CCD ---
Author Organization [facility] Care Team Providers Care Prune Washer Name Role Phone MD Dario Forman Admit Provider MD Dario Forman Attending Provider MD Xavier Robbins Primary Care Provider DR XAVIER ROBBINS Primary Care Unavailable FABIANA BECKER Admitting Unavailable FABIAAN BECKER Attending Unavailable CHLOÉ DARBY Consulting Unavailable [...] Translations: [Neomycin] Drug Allergy 2 Unknown Reaction [facility] (8 sources) nickel; Translations: [Nickel] Drug Allergy 3 rash, Swelling [facility] (3 sources) erythromycin base; Translations: [Erythromycin Base] Allergy to substance 2 Unknown Reaction [facility] (4 sources) Azithromycin; Translations: [Azithromycin TABS] Drug Allergy 3 [facility] (1 source) Erythromycin Drug Allergy hives [facility] [employer] Other (1 source) Wlalr-Nffro-Iebo myx-Pramoxine Drug allergy rash,itching [facility] [employer] Other (1 source) Azithromycin; Translations: [AZITHROMYCIN] Drug Allergy 3 [facility] 3 Repository Medications Current Medications Medication Drug Class(es) Dates Sig (Normalized) Sig (Original) [id number] 200 actuat albuterol 0.09 mg/actuat metered dose [...] food 0 Active take 1 capsule by [facility] every twenty-four hours Celecoxib 200 MG [...] inhalation every eight hours as needed Ipratropium [place] 0.02 % 2.5 ml Inhalation every 8 hrs as needed using [facility] N216, Rx Bin [id number], [id number] [place] ID [id number] Mar, Not-Taking meloxicam 15 mg oral tablet [...] [Coronary atherosclerosis of unspecified type of vessel, king salmon or graft] Onset: 02-18-2023 02-18-2023 Chronic Coronary [...] right shoulder] Chronic Other aftercare (1 source) 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 around [facility], underwent primary PCI of the third [...] Recorded: 20Aug2022 11:17AM Heart Rate68, L Radial Mlhpdmrc505, LUE, Sitting Hwuigrrpk56, LUE, Sitting Height5 ft 9 in Fkxzxp916 lb BMI Khtulghrlu84.18 kg/m2 BSA Calculated2.25 Tobacco Useb) No PHQ-2 [...] Aug 20 2022 12:32PM EST (Author) Normal [facility] Tobacco Screening.on 023 Fall risk assessment a) No falls within the last year -Located Within [facility] 250 DO Work Phone: Tobacco use status [facility] b) No M [facility] 250 DO Work Phone: Tobacco Screening. Yes [facility] 250 DO Work [...] For - Scheduling,Retrospec tive Authorization Requested for: [id number] Agreement : I agree to have my [...] Weight Tips; Status:Complete - Retrospective Authorization; Done: [id number] Some eating tips that can help you lose weight.; Status:Complete - Retrospective Authorization; Done: [id number] SocHx: Never a smoker Tobacco Use Screening; Status:Complete; Done: [id number] Patient Instructions Please bring all medicines, vitamins, and herbal supplements with you when you come to the office. Prescriptions will not be filled unless you are compliant with your follow up appointments or have a follow up appointment scheduled as per instruction of your physician. Refills should be requested at the time of your visit. Fall prevention education given Cardiac rehab at [facility]. I recommend Omeprazole 20 mg Over the counter to help with protecting stomach. Or Zantac over the counter. Follow up in 6 months Chief Complaint LEIA EWING is being seen for follow-up of a hospitalization for. 71-year-old female follows up with me for the first time following recent inferolateral ST elevation MN in February 2022 with primary PCI of [...] negative for complaint. Vitals Vital Signs Recorded: [id number] 08:53AM Heart Rate78, R Radial Pznxsssg351, LUE, Sitting Wdsnlkott93, LUE, Sitting Height5 ft 9 in Zctspm544 lb (more content not included)... Normal [facility] Tobacco Screening.on 022 Adult depression screening assessment Yes [facility] 250 DO Work Phone: Adult depression screening assessment No [facility] 250 DO Work Phone: Fall risk assessment b) One or more fall s in the last year [facility] 250 DO Work Phone: Tobacco use status [facility] b) No M [facility] 250 DO Work Phone: Basophils Auto (Bld) [#/Vol] Ordered By: Dario Forman on 03-14-2022 Basophils (Bld) [#/Vol] 0.0 10*3/uL 0.0-0.2 [facility] Basophils/100 WBC Auto (Bld) Ordered By: Dario Forman on 03-14-2022 Basophils/100 WBC (Bld) 0.3 % . [facility] Body fluid albumin measureme nt (mass/volume)Ordered By: Dario Forman on 03-14-2022 Albumin (Body fld) [Mass/Vol] 3.4 g/dL 3.2-5.5 [facility] Complete Blood Count Auto Di ffon 03-14-2022 Basophils (Bld) [#/Vol] 0.0 10*3/uL Normal 0.0-0.2 [facility] Comment on above: Result Comment: PERF ORMED BY: [place] [address] PATHOLOGIST LINEMAN APPRENTICE DEE SEGUNDO M.D. Performed By: #### C MP, CBC #### [facility] [address] [place] [address] [place] Basophils/100 WBC (Bld) 0.3 % Normal . [facility] Comment on above: Performed By: #### C MP, CBC #### [facility] [address] [place] [address] [place] Eosinophils (Bld) [#/Vol] 0.1 10*3/uL Normal 0.0-0.45 [facility] Comment on above: Performed By: #### C MP, CBC #### [address] Eosinophils/100 WBC (Bld) 0.7 % Normal . [facility] Comment on above: Performed By: #### C MP, CBC #### [address] Erythrocyte distribution width (RBC) [Ratio] 14.3 % Normal 11.9-15.3 [facility] Comment on above: Performed By: #### C MP, CBC #### [address] Hematocrit (Bld) [Volume fraction] 37.1 % Normal 34.0-46.4 [facility] Comment on above: Performed By: #### C MP, CBC #### [address] Hemoglobin (Bld) [Mass/Vol] 12.0 g/dL Normal 11.8-15.4 [facility] Comment on above: Performed By: #### C MP, CBC #### [address] Lymphocytes (Bld) [#/Vol] 1.1 10*3/uL Normal 1.00-4.8 [facility] Comment on above: Performed By: #### C MP, CBC #### [address] Lymphocytes/100 WBC (Bld) 8.8 % Normal . [facility] Comment on above: Performed By: #### C MP, CBC #### [address] MCH (RBC) [Entitic mass] 29.6 pg Normal 24.7-34.3 [facility] Comment on above: Performed By: #### C MP, CBC #### [address] MCV (RBC) [Entitic vol] 91.7 fL Normal 80-100 [facility] Comment on above: Performed By: #### C MP, CBC #### [facility] [address] Mean Corpuscular HGB Conc 32.3 g/dL Normal 32.0-35.0 [facility] Comment on above: Performed By: #### C MP, CBC #### [facility] [address] [place] [address] [place] Monocytes (Bld) [#/Vol] 1.3 10*3/uL High 0.0-0.8 [facility] Comment on above: Performed By: #### C MP, CBC #### [facility] [address] [place] [address] [place] Monocytes/100 WBC (Bld) 10.2 % Normal . [facility] Comment on above: Performed By: #### C MP, CBC #### [facility] [address] Neutrophils (Bld) [#/Vol] 10.1 10*3/uL High 1.8-7.7 [facility] Comment on above: Performed By: #### C MP, CBC #### [facility] [address] [place] [address] [place] Neutrophils/100 WBC (Bld) 80.0 % Normal . [facility] Comment on above: Performed By: #### C MP, CBC #### [facility] [address] [place] [address] [place] Nucleated RBC/100 WBC (Bld) [Ratio] 0.0 % Normal 0-0.5 [facility] Comment on above: Performed By: #### C MP, CBC #### [facility] [address] [place] [address] [place] Platelet mean volume (Bld) [Entitic vol] 9.0 fL Normal 6.3-10.7 [facility] Comment on above: Performed By: #### C MP, CBC #### [facility] [address] [place] [address] [place] Platelets (Bld) [#/Vol] 258 10*3/uL Normal 150-450 [facility] Comment on above: Performed By: #### C MP, CBC #### [facility] [address] [place] [address] RBC (Bld) [#/Vol] 4.05 10*6/uL Normal 3.60-5.00 [facility] Comment on above: Performed By: #### C MP, CBC #### [address] WBC (Bld) [#/Vol] 12.6 10*3/uL High 4.5-11.0 [facility] Comment on above: Performed By: #### C MP, CBC #### [address] Comprehensive Metabolic Pane juan m 03-14-2022 Albumin [Mass/Vol] 3.4 g/dL Normal 3.2-5.5 [facility] Comment on above: Performed By: #### C MP, CBC #### [address] Albumin/Globulin [Mass ratio] 1.4 {ratio} Normal [facility] Comment on above: Performed By: #### C MP, CBC #### [address] ALP [Catalytic activity/Vol] 77 U/L Normal 32-92 [facility] Comment on above: Performed By: #### C MP, CBC #### [address] ALT [Catalytic activity/Vol] 24 U/L Normal 10-60 [facility] Comment on above: Performed By: #### C MP, CBC #### [address] Anion gap [Moles/Vol] 12.9 mmol/L Normal 6.0-15.0 [facility] Comment on above: Performed By: #### C MP, CBC #### [address] AST [Catalytic activity/Vol] 90 U/L High 10-42 [facility] Comment on above: Performed By: #### C MP, CBC #### [facility] [address] [place] [address] [place] Bilirubin [Mass/Vol] 0.9 mg/dL Normal 0.3-1.2 [facility] Comment on above: Performed By: #### C MP, CBC #### [facility] [address] [place] [address] [place] Calcium [Mass/Vol] 9.3 mg/dL Normal 8.2-10.2 [facility] Comment on above: Performed By: #### C MP, CBC #### [facility] [address] [place] [address] [place] Chloride [Moles/Vol] 108 mmol/L Normal 95-114 [facility] Comment on above: Performed By: #### C MP, CBC #### [facility] [address] CO2 [Moles/Vol] 22.3 mmol/L Normal 22.0-30.0 [facility] Comment on above: Performed By: #### C MP, CBC #### [facility] [address] [place] [address] [place] Creatinine [Mass/Vol] 0.99 mg/dL Normal 0.44-1.03 [facility] Comment on above: Performed By: #### C MP, CBC #### [facility] [address] [place] [address] [place] Creatinine Clr Calc Pharmacy 68.42 [facility] Comment on above: Result Comment: PERF ORMED BY: [place] [address] PATHOLOGIST LINEMAN APPRENTICE DEE SEGUNDO M.D. Performed By: #### C MP, CBC #### [facility] [address] Estimated GFR ( [place] > 60 [facility] Comment on above: Result Comment: GFR estimated reference range: According to KDOQI guidelines, <60 ml/min/1.73m2 is sufficient to diagnose a patient with chronic kidney disease. Performed By: #### C MP, CBC #### [facility] [address] Estimated GFR (Non- Am 55 Normal [facility] Comment on above: Performed By: #### C MP, CBC #### [facility] [address] Globulin (S) [Mass/Vol] 2.5 g/dL Normal F [facility] Comment on above: Performed By: #### C MP, CBC #### [facility] [address] Glucose [Mass/Vol] 112 mg/dL High 70-100 [facility] Comment on above: Result Comment: [facility] Glucose Reference Range is dependent on time and content of last meal. Glucose of more than 200 mg/dL in a nonstressed, ambulatory subject supports the diagnosis of Diabetes Mellitus. ADA recommended reference range Performed By: #### C MP, CBC #### [address] Potassium [Moles/Vol] 4.2 mmol/L Normal 3.5-5.1 [facility] Comment on above: Performed By: #### C MP, CBC #### [address] Protein [Mass/Vol] 5.9 g/dL Low 6.1-7.9 [facility] Comment on above: Performed By: #### C MP, CBC #### [address] Sodium [Moles/Vol] 139 mmol/L Normal 136-146 [facility] Comment on above: Performed By: #### C MP, CBC #### [address] Urea nitrogen [Mass/Vol] 17 mg/dL Normal 9-23 [facility] Comment on above: Performed By: #### C MP, CBC #### [address] Creatinine and Glomerular fi ltration rate.predicted panel (S/P/Bld)Ordered By: Dario Forman on 03-14-2022 Creatinine [Mass/Vol] 0.99 mg/dL 0.44-1.03 [facility] ECG 12 lead ECGon 03-14-2022 ECG 12 [place] [address] Electrocardiograph Report Signed Patient: Leia Ewing MR#: [id number] : 1950 Acct:[id number] Age/Sex: 71 / F ADM Date: 03/13/22 Loc: Room: [address] [place] [address] Type: DIS IN Attending Dr: Dario Forman [...] change was found Confirmed by MINERVA NOLAN [id number] on 03/14/2022 11:13:29 AM Referred By: Electronically Signed By:BRIDGET PALMA MD [facility] Transcribed By: MUS Signed By Angela Palma MD 03/14/[address] [place] [address] ECH echo transthoracicon ECH echo transthoracic [facility] [address] [place] [id number] Echocardiogram Signed Patient: Leia Ewing MR#: [id number] : 1950 Acct:[id number] Age/Sex: 71 / F ADM Date: 03/13/22 Loc: Room: [address] [place] [address] Type: DIS IN Attending Dr: Dario Forman MD Ordering Provider: Dario Forman MD Date of Service: 03/14/22 ECH/ECH echo transthoracic: STEMI Copies to: Alexandria Mosher MD, [facility] Dario Forman MD BSA: 2.3 m2 [...] 03/14/22 1028 Signed By: Alexandria Mosher MD, [facility] 03/14/22 1238 Normal [facility] Eosinophils Auto (Bld) [#/Vo l]Ordered By: Dario Forman on 03-14-2022 Eosinophils (Bld) [#/Vol] 0.1 10*3/uL 0.0-0.45 [facility] Eosinophils/100 WBC Auto (Bl d)Ordered By: Dario Forman on 03-14-2022 Eosinophils/100 WBC (Bld) 0.7 % . [facility] Erythrocyte distribution wid th Auto (RBC) [Ratio]Ordered By: Dario Forman on 03-14-2022 Erythrocyte distribution width (RBC) [Ratio] 14.3 % 11.9-15.3 [facility] Estimated glomerular filtrat ion rate (GFR) non- AmericanOrdered By: Dario Forman on 03-14-2022 GFR/1.73 sq M.predicted among non-blacks MDRD (S/P/Bld) [Vol rate/Area] 55 mL/Min [facility] Globulin Calc (S) [Mass/Vol] Ordered By: Dario Forman on 03-14-2022 Globulin (S) [Mass/Vol] 2.5 g/dL [facility] Hematocrit Auto (Bld) [Volum e fraction]Ordered By: Dario Forman on 03-14-2022 Hematocrit (Bld) [Volume fraction] 37.1 % 34.0-46.4 [facility] Hemoglobin [Mass/volume] in BloodOrdered By: Dario Forman on 03-14-2022 Hemoglobin (Bld) [Mass/Vol] 12.0 g/dL 11.8-15.4 [facility] Laboratory - Hematology and Cell countsOrdered By: Dario Forman on 03-14-2022 Nucleated RBC/100 WBC (Bld) [Ratio] 0.0 % 0-0.5 [facility] Leukocytes [#/volume] in Blo od by Automated countOrdered By: Dario Forman on 03-14-2022 WBC (Bld) [#/Vol] 12.6 10*3/uL 4.5-11.0 [facility] Lymphocytes Auto (Bld) [#/Vo l]Ordered By: Dario Forman on 03-14-2022 Lymphocytes (Bld) [#/Vol] 1.1 10*3/uL 1.00-4.8 [facility] Lymphocytes/100 WBC Auto (Bl d)Ordered By: Dario Forman on 03-14-2022 Lymphocytes/100 WBC (Bld) 8.8 % . [facility] MCH Auto (RBC) [Entitic mass ]Ordered By: Dario Forman on 03-14-2022 MCH (RBC) [Entitic mass] 29.6 pg 24.7-34.3 [facility] MCHC Auto (RBC) [Mass/Vol]Or dered By: Dario Forman on 03-14-2022 MCHC (RBC) [Mass/Vol] 32.3 g/dL 32.0-35.0 [facility] MCV Auto (RBC) [Entitic vol] Ordered By: Dario Forman on 03-14-2022 MCV (RBC) [Entitic vol] 91.7 fL 80-100 [facility] Monocytes Auto (Bld) [#/Vol] Ordered By: Dario Forman on 03-14-2022 Monocytes (Bld) [#/Vol] 1.3 10*3/uL 0.0-0.8 [facility] Monocytes/100 WBC Auto (Bld) Ordered By: Dario Forman on 03-14-2022 Monocytes/100 WBC (Bld) 10.2 % . [facility] Neutrophils Auto (Bld) [#/Vo l]Ordered By: Dario Forman on 03-14-2022 Neutrophils (Bld) [#/Vol] 10.1 10*3/uL 1.8-7.7 [facility] Neutrophils/100 WBC Auto (Bl d)Ordered By: Dario Forman on 03-14-2022 Neutrophils/100 WBC (Bld) 80.0 % . [facility] No Panel InformationOrdered By: Dario Forman on 03-14-2022 Estimated GFR () > 60 mL/Min [facility] Comment on above: GFR estimated refere nce range: According to KDOQI guidelines, <60 ml/min/1.73m2 is sufficient to diagnose a patient with chronic kidney disease. Pharmacy Creatinine Clearance (Chem 68.42 [facility] Platelet mean volume Auto (B ld) [Entitic vol]Ordered By: Dario Forman on 03-14-2022 Platelet mean volume (Bld) [Entitic vol] 9.0 fL 6.3-10.7 [facility] Platelets Auto (Bld) [#/Vol] Ordered By: Dario Forman on 03-14-2022 Platelets (Bld) [#/Vol] 258 10*3/uL 150-450 [facility] Protein [Mass/volume] in Ser um or PlasmaOrdered By: Dario Forman on 03-14-2022 Protein [Mass/Vol] 5.9 g/dL 6.1-7.9 [facility] RBC Auto (Bld) [#/Vol]Ordere d By: Dario Forman on 03-14-2022 RBC (Bld) [#/Vol] 4.05 10*6/uL 3.60-5.00 [facility] Serum or plasma alanine mathis otransferase measurement without P-5'-P (enzymatic activiOrdered By: Dario Forman on 03-14-2022 ALT No additional P-5'-P [Catalytic activity/Vol] 24 U/L [address] [facility] Serum or plasma albumin/glob ulin mass ratioOrdered By: Dario Forman on 03-14-2022 Albumin/Globulin [Mass ratio] 1.4 {ratio} [facility] Serum or plasma alkaline shubham sphatase measurement (enzymatic activity/volume)Ordered By: Dario Forman on 03-14-2022 ALP [Catalytic activity/Vol] 77 U/L 32-92 [facility] Serum or plasma anion gap de terminationOrdered By: Dario Forman on 03-14-2022 Anion gap [Moles/Vol] 12.9 mmol/L 6.0-15.0 [facility] Serum or plasma aspartate am inotransferase measurement (enzymatic activity/volume)Ordered By: Dario Forman on 03-14-2022 AST [Catalytic activity/Vol] 90 U/L 10-42 [facility] Serum or plasma calcium akash urement (mass/volume)Ordered By: Dario Forman on 03-14-2022 Calcium [Mass/Vol] 9.3 mg/dL 8.2-10.2 [facility] Serum or plasma chloride michele surement (moles/volume)Ordered By: Dario Forman on 03-14-2022 Chloride [Moles/Vol] 108 mmol/L 95-114 [facility] Serum or plasma glucose akash urement (mass/volume)Ordered By: Dario Forman on 03-14-2022 Glucose [Mass/Vol] 112 mg/dL 70-100 [facility] Comment on above: ADA recommended refe rence rangeRandom Glucose Reference Range is dependent on time and content of last meal. Glucose of more than 200 mg/dL in a nonstressed, ambulatory subject supports the diagnosis of Diabetes Mellitus. Serum or plasma potassium me asurement (moles/volume)Ordered By: Dario Froman on 03-14-2022 Potassium [Moles/Vol] 4.2 mmol/L 3.5-5.1 [facility] Serum or plasma sodium measu rement (moles/volume)Ordered By: Dario Forman on 03-14-2022 Sodium [Moles/Vol] 139 mmol/L 136-146 [facility] Serum or plasma total biliru bin measurement (mass/volume)Ordered By: Dario Forman on 03-14-2022 Bilirubin [Mass/Vol] 0.9 mg/dL 0.3-1.2 [facility] Serum or plasma total carbon dioxide measurement (moles/volume)Ordered By: Dario Forman on 03-14-2022 CO2 [Moles/Vol] 22.3 mmol/L 22.0-30.0 [facility] Serum or plasma urea nitroge n measurement (mass/volume)Ordered By: Dario Forman on 03-14-2022 Urea nitrogen [Mass/Vol] 17 mg/dL - [facility] BNPon 03-13-2022 Natriuretic peptide B (Bld) [Mass/Vol] 281.0 pg/mL Normal <=900.0 [facility] Comment on above: Performed By: #### B CAD ENGINEER, CMP, CMADM #### [facility] [address] [place] [address] [address] Abimael Floyd CARDIAC ANA ADMITon 022 CK [Catalytic activity/Vol] 72 U/L Normal 26-192 [facility] Comment on above: Performed By: #### B CAD ENGINEER, CMP, CMADM #### [facility] [address] [place] [address] Dr. Abimael Floyd CK.MB [Mass/Vol] 5.23 ng/mL Critically high <=3.60 [facility] Comment on above: Performed By: #### B CAD ENGINEER, CMP, CMADM #### [facility] [address] [place] [address] Dr. Abimael Floyd HSTROP 729.5 pg/mL Critically high 4.0-51.3 [facility] Comment on above: Result Comment: CUT- OFF POINTS HAVE BEEN ESTABLISHED BASED ON THE FOURTH UNIVERSAL DEFINITIONS OF MYOCARDIAL INFARCTION. THE UPPER REFERENCE LIMIT (URL) OF TROPONIN, DEFINED THE 99TH PERCENTILE OF cTnI DISTRIBUTION IN A REFERENCE POPULATION, HAS BEEN CONFIRMED THE DECISION THRESHOLD FOR MN DIAGNOSIS. Performed By: #### B CAD ENGINEER, CMP, CMADM #### [facility] [address] [place] [address] Dr. Abimael Floyd BRITTANY 111 ng/mL Critically high 9-82 [facility] Comment on above: Performed By: #### B CAD ENGINEER, CMP, CMADM #### [facility] [address] [place] [address] Dr. Abimael Floyd CBC AUTO DIFFon 03-13-2022 BASO # 0.1 103/ul Normal 0.0-0.1 [facility] Comment on above: Performed By: #### C BC #### [facility] [address] [place] [address] Dr. Abimael Floyd Basophils/100 WBC (Bld) 0.5 % Normal 0.2-2.0 [facility] Comment on above: Performed By: #### C BC #### [facility] [address] [place] [address] Dr. Abimael Floyd EO # 0.2 103/ul Normal 0.0-0.7 [facility] Comment on above: Performed By: #### C BC #### [facility] [address] [place] [address] Dr. Abimael Floyd Eosinophils/100 WBC (Bld) 1.4 % Normal 0.9-7.0 [facility] Comment on above: Performed By: #### C BC #### [facility] [address] [place] [address] Dr. Abimael Floyd Erythrocyte distribution width (RBC) [Ratio] 13.9 % Normal 11.0-15.0 [facility] Comment on above: Performed By: #### C BC #### [facility] [address] [place] [address] Dr. Abimael Floyd Hematocrit (Bld) [Volume fraction] 39.3 % Normal 36.0-48.0 [facility] Comment on above: Performed By: #### C BC #### [facility] [address] [place] [address] Dr. Abimael Floyd Hemoglobin (Bld) [Mass/Vol] 12.9 g/dL Normal 12.0-16.0 [facility] Comment on above: Performed By: #### C BC #### [facility] [address] [place] [address] Dr. Abimael Floyd IG # 0.03 10e3/ul Normal 0.00-0.03 [facility] Comment on above: Performed By: #### C BC #### [facility] [address] [place] [address] Dr. Abimael Floyd IG % 0.2 % Normal 0.0-0.5 [facility] Comment on above: Performed By: #### C BC #### [facility] [address] [place] [address] Dr. Abimael Floyd LYMPH # 1.1 103/ul Critically low 1.2-3.8 [facility] Comment on above: Performed By: #### C BC #### [facility] [address] [place] [address] Dr. Abimael Floyd Lymphocytes/100 WBC (Bld) 8.3 % Critically low 20.5-60.0 [facility] Comment on above: Performed By: #### C BC #### [facility] [address] [place] [address] Dr. Abimael Floyd MANUAL DIFF REQ NO Normal [facility] Comment on above: Performed By: #### C BC #### [facility] [address] [place] [address] Dr. Abimael Floyd MCH (RBC) [Entitic mass] 30.0 pg Normal 26.7-34.0 [facility] Comment on above: Performed By: #### C BC #### [facility] [address] [place] [address] Dr. Abimael Floyd MCHC (RBC) [Mass/Vol] 32.8 g/dL Normal 29.9-35.2 [facility] Comment on above: Performed By: #### C BC #### [facility] [address] [place] [address] Dr. Abimael Floyd MCV (RBC) [Entitic vol] 91.4 fL Normal 81.0-99.0 [facility] Comment on above: Performed By: #### C BC #### [facility] [address] [place] [address] Dr. Abimael Floyd MONO # 0.9 103/ul Critically high 0.3-0.8 [facility] Comment on above: Performed By: #### C BC #### [facility] [address] [place] [address] Dr. Abimael Floyd Monocytes/100 WBC (Bld) 6.8 % Normal 1.7-12.0 [facility] Comment on above: Performed By: #### C BC #### [facility] [address] [place] [address] Dr. Abimael Floyd NEUT # 10.5 103/ul Critically high 1.4-6.5 [facility] Comment on above: Performed By: #### C BC #### [facility] [address] [place] [address] Dr. Abimael Floyd Neutrophils/100 WBC (Bld) 82.8 % Critically high 43.0-75.0 [facility] Comment on above: Performed By: #### C BC #### [facility] [address] [place] [address] Dr. Abimael Floyd Platelet mean volume (Bld) [Entitic vol] 10.2 fL Normal 9.5-13.5 [facility] Comment on above: Performed By: #### C BC #### [facility] [address] [address] [address] Abimael Floyd PLT 251 103/ul Normal 150-450 [facility] Comment on above: Performed By: #### C BC #### [facility] [address] [address] [address] Abimael Floyd RBC 4.30 106/ul Normal 4.20-5.40 [facility] Comment on above: Performed By: #### C BC #### [facility] [address] [address] [address] Abimael Floyd WBC 12.7 103/ul Critically high 4.0-11.0 [facility] Comment on above: Performed By: #### C BC #### [facility] [address] [address] [address] Abimael Floyd ECG 12 lead ECGon 03-13-2022 ECG 12 lead ECG [facility] [place] [address] Electrocardiograph Report Signed Patient: Leai Ewing MR#: [id number] : 1950 Acct:[id number] Age/Sex: 71 / F ADM Date: 03/13/22 Loc: Room: [address] [place] [address] Type: DIS IN Attending Dr: Dario Forman [...] previous ECGs available Confirmed by MINERVA NOLAN [id number] on 03/14/2022 11:13:24 AM Referred By: Electronically Signed By:BRIDGET PALMA MD [facility] Transcribed By: MUS Signed By Angela Palma MD 03/14/22 1113 Normal [facility] PROF 14(COMP METB)on 022 Albumin [Mass/Vol] 4.0 g/dL Normal 3.4-5.0 [facility] Comment on above: Performed By: #### B CAD ENGINEER, CMP, CMADM #### [facility] [address] [place] [address] Dr. Abimael Floyd Albumin/Globulin [Mass ratio] 1.1 {ratio} Normal [facility] Comment on above: Performed By: #### B CAD ENGINEER, CMP, CMADM #### [facility] [address] [place] [address] Dr. Abimael Floyd ALP [Catalytic activity/Vol] 115 U/L Normal 46-116 [facility] Comment on above: Performed By: #### B CAD ENGINEER, CMP, CMADM #### [facility] [address] [place] [address] Dr. Abimael Floyd ALT [Catalytic activity/Vol] 15 U/L Normal 14-59 [facility] Comment on above: Performed By: #### B CAD ENGINEER, CMP, CMADM #### [facility] [address] [address] [address] Abimael Floyd Anion gap [Moles/Vol] 10.4 mmol/L Normal [facility] Comment on above: Performed By: #### B CAD ENGINEER, CMP, CMADM #### [facility] [address] [address] [address] Abimael Floyd AST [Catalytic activity/Vol] 14 U/L Critically low 15-37 [facility] Comment on above: Performed By: #### B CAD ENGINEER, CMP, CMADM #### [facility] [address] [place] [address] Dr. Abimael Floyd Bilirubin [Mass/Vol] 1.0 mg/dL Normal 0.2-1.0 [facility] Comment on above: Performed By: #### B CAD ENGINEER, CMP, CMADM #### [facility] [address] [place] [address] Dr. Abimael Floyd Calcium [Mass/Vol] 9.3 mg/dL Normal 8.5-10.1 [facility] Comment on above: Performed By: #### B CAD ENGINEER, CMP, CMADM #### [facility] [address] [address] [address] Abimael Floyd Chloride [Moles/Vol] 103 mmol/L Normal 98-107 [facility] Comment on above: Performed By: #### B CAD ENGINEER, CMP, CMADM #### [facility] [address] [address] [address] Abimael Floyd CO2 [Moles/Vol] 26.6 mmol/L Normal 21.0-32.0 [facility] Comment on above: Performed By: #### B CAD ENGINEER, CMP, CMADM #### [facility] [address] [place] [address] Dr. Abimael Floyd Creatinine [Mass/Vol] 1.03 mg/dL Critically high 0.55-1.02 [facility] Comment on above: Performed By: #### B CAD ENGINEER, CMP, CMADM #### [facility] [address] [address] [address] Abimael Floyd EGFR-AF BARBADIAN >60 Normal >=60 [facility] Comment on above: Performed By: #### B CAD ENGINEER, CMP, CMADM #### [facility] [address] [place] [address] Dr. Abimael Floyd EGFR-NON AF BARBADIAN 53 mL/min/1.73m2 Critically low >=60 [facility] Comment on above: Performed By: #### B CAD ENGINEER, CMP, CMADM #### [facility] [address] [address] [address] Abimael Floyd Globulin (S) [Mass/Vol] 3.5 g/dL Normal [facility] Comment on above: Performed By: #### B CAD ENGINEER, CMP, CMADM #### [facility] [address] [address] [address] Abimael Floyd Glucose [Mass/Vol] 144 mg/dL Critically high 74-106 [facility] Comment on above: Performed By: #### B CAD ENGINEER, CMP, CMADM #### [facility] [address] [address] [address] Abimael Floyd Potassium [Moles/Vol] 4.0 mmol/L Normal 3.5-5.1 [facility] Comment on above: Performed By: #### B CAD ENGINEER, CMP, CMADM #### [facility] [address] [address] [address] Abimael Floyd Protein [Mass/Vol] 7.5 g/dL Normal 6.4-8.[address] [facility] Comment on above: Performed By: #### B CAD ENGINEER, CMP, CMADM #### [facility] [address] [address] [address] Abimael Floyd Sodium [Moles/Vol] 136 mmol/L Normal 136-[address] [facility] Comment on above: Performed By: #### B CAD ENGINEER, CMP, CMADM #### [facility] [address] [address] [address] Abimael Floyd Urea nitrogen [Mass/Vol] 26.0 mg/dL Critically high 7.0-18 .0 [facility] Comment on above: Performed By: #### B CAD ENGINEER, CMP, CMADM #### [facility] [address] [address] [address] Abimael Floyd Urea nitrogen/Creatinine [Mass ratio] 25.2 mg/mg Normal [facility] Comment on above: Performed By: #### B CAD ENGINEER, CMP, CMADM #### [facility] [address] [address] [address] Abimael Floyd XR CHEST 1 Von [...] CHLOÉ DARBY Date: 2022-03-13 12:14 Normal [facility] XR Shoulder Complete Left*on 12-11-2021 XR [...] by Raphael Jones on 12/11/2021 1357 Normal [facility] XR Shoulder Complete Right*o n 12-11-2021 XR Shoulder Complete Right* Please see the left shoulder x-ray report from this same date Report reported and signed by Raphael Jones on 12/11/2021 1356 Normal [facility] Comprehensive Metabolic Pane juan m 06-17-2021 Albumin [Mass/Vol] 4.7 g/dL Normal 3.6-5.1 [facility] Comment on above: Performed By: #### C BRAYDEN, LIPD #### [facility] [address] [place], [place] [id number] Albumin/Globulin [Mass ratio] 2.4 {ratio} Normal 1.0-2.5 [facility] Comment on above: Performed By: #### C BRAYDEN LIPD #### [facility] [address] [place], [place] [id number] ALP [Catalytic activity/Vol] 111 U/L Normal 35-119 [facility] Comment on above: Performed By: #### C BRAYDEN, LIPD #### [facility] [address] [place], [place] [id number] ALT [Catalytic activity/Vol] 12 U/L Normal 6-33 [facility] Comment on above: Result Comment: 03/20 Female reference range changed. Performed By: #### C BRAYDEN LIPD #### [facility] [address] [place], [place] [id number] Anion gap [Moles/Vol] 16 mmol/L Normal 12-20 [facility] Comment on above: Result Comment: Effe ctive 04/25/2019 reference range changed. Performed By: #### C BRAYDEN LIPD #### [facility] [address] [place], [place] [id number] AST [Catalytic activity/Vol] 12 U/L Normal 9-34 [facility] Comment on above: Performed By: #### C ANGELINE OWEN #### [facility] [address] [place], [place] [id number] Bilirubin [Mass/Vol] 0.66 mg/dL Normal 0.30-1.20 [facility] Comment on above: Performed By: #### C BRAYDEN LIPRobby #### [facility] [address] [place], [place] [id number] BUN/CREA 31 Ratio High 6-22 [facility] Comment on above: Performed By: #### C ANGELINE OWEN #### [facility] [address] [place], [place] [id number] Calcium [Mass/Vol] 9.9 mg/dL Normal 8.6-10.2 [facility] Comment on above: Performed By: #### C BRAYDEN LIPRobby #### [facility] [address] [place], [place] [id number] Chloride [Moles/Vol] 106 mmol/L Normal 98-107 [facility] Comment on above: Performed By: #### C ANGELINE OWEN #### [facility] [address] [place], [place] [id number] CO2 [Moles/Vol] 23 mmol/L Normal 20-31 [facility] Comment on above: Performed By: #### C BRAYDEN LIPRobby #### [facility] [address] [place], [place] [id number] Creatinine [Mass/Vol] 0.8 mg/dL Normal 0.6-1.4 [facility] Comment on above: Performed By: #### C BRAYDEN LIPRobby #### [facility] [address] [place], [place] [id number] eGFRAA 84 mL/min/1.73m2 Normal >60 [facility] Comment on above: Performed By: #### C BRAYDEN LIPRobby #### [facility] [address] [place], [place] [id number] eGFRNAA 70 mL/min/1.73m2 Normal >60 [facility] [place] [facility] Comment on above: Performed By: #### C BRAYDEN, LIPD #### [facility] [address] [place], [place] [id number] Globulin (S) [Mass/Vol] 2.0 g/dL Normal 1.9-3.[address] [facility] [place] Comment on above: Performed By: #### C BRAYDEN, LIPD #### [facility] [address] [place], [place] [id number] Glucose [Mass/Vol] 102 mg/dL High 65-99 Padmini [facility] [place] Comment on above: Result Comment: For FASTING Glucose --- ADA reference ranges: Normal 65-99 mg/dl Prediabetes 100-125 Diabetes >/= 126 Performed By: #### C BRAYDEN, LIPD #### [facility] [address], [place] [id number] Potassium [Moles/Vol] 4.4 mmol/L Normal 3.5-5.5 [facility] Comment on above: Performed By: #### C BRAYDEN, LIPD #### [facility] [address] [place], [place] [id number] Protein [Mass/Vol] 6.7 g/dL Normal 6.1-8.1 [facility] [place] Comment on above: Performed By: #### C BRAYDEN LIPD #### [facility] [address] [place], [place] [id number] Sodium [Moles/Vol] 141 mmol/L Normal 135-146 [facility] [place] Comment on above: Performed By: #### C BRAYDEN, LIPD #### [facility] [address] [place], [place] [id number] Urea nitrogen [Mass/Vol] 25 mg/dL Normal 7-25 [facility] [place] Comment on above: Performed By: #### C BRAYDEN LIPD #### [facility] [address] [place], [place] [id number] Lipid Panelon 06-17-2021 Cholesterol [Mass/Vol] 268 mg/dL High 125-200 [facility] [place] Comment on above: Result Comment: Low risk < 200mg/dL Borderline risk 201-239 mg/dl High risk > or equal to 240 Performed By: #### C BRAYDEN LIPRobby #### [facility] [address] [place], [place] [id number] Cholesterol in HDL [Mass/Vol] 62 mg/dL Normal >40 [facility] Comment on above: Result Comment: High Cardiovascular Risk HDL <40 mg/dL Low Cardiovascular Risk HDL > or equal to 60 mg/dl Performed By: #### C BRAYDEN, LIPD #### [facility] [address] [place], [place] [id number] Cholesterol in LDL [Mass/Vol] 184 mg/dL Normal [facility] Comment on above: Result Comment: LDL ATP III CLASSIFICATION LDL less than 100 mg/dl Optimal LDL 100-129 mg/dl Near or above optimal LDL 130-159 Borderline high LDL 160-189 High LDL greater than 189 mg/dl Very High Performed By: #### C BRAYDEN, LIPRobby #### [facility] [address] [place], [place] [id number] Cholesterol in VLDL [Mass/Vol] 22 mg/dL Normal [facility] [place] Comment on above: Performed By: #### C BRAYDEN LIPD #### [facility] [address] [place], [place] [id number] Cholesterol.total/Choles terol in HDL [Mass ratio] 4 {ratio} Normal [facility] Comment on above: Performed By: #### C BRAYDEN LIPRobby #### [facility] [address] [place], [place] [id number] Triglyceride [Mass/Vol] 108 mg/dL Normal 30-150 N [facility] Comment on above: Result Comment: TRIG ATPIII CLASSIFICATIONS TRIG less than 150 mg/dl Normal TRIG 150-199 mg/dl Borderline High TRIG 200-500 mg/dl High TRIG greather than 500 mg/dl Very High Performed By: #### C BRAYDEN, LIPD #### [facility] [address] [place], [place] [id number] Gillian 02-04-2021 CNOV Office Visit (KARLAMN) LEIA EWING ([id number]) 1950 F Date Time Provider Department 02/04/21 [...] previously because of the arthritic changes near weln-an-zkah of the lateral compartment she will have [...] Has a valgus aligned knee with near kuta-yc-dhbd lateral compartment Follow up: As needed consider cortisone injection Films prior to visit: No additional imaging warranted. SIGNATURE: Yonas Luciano PA-C PATIENT NAME: Leia Ewing DATE: February 04, 2021 TIME: 2:40 PM Referri (more content not included)... Normal [facility] CNOVon 01-14-2021 CNOV Office Visit (ORTHMN) LEIA EWING ([id number]) 1950 F Date Time Provider Department 01/14/21 [...] mild Effusion: effusion present Assessment/Plan ASSESSMENT Diagnosis (S83.783D) Sprain of medial collateral ligament of left [...] - asp (more content not included)... Normal [facility] CNCOon 12-13-2020 CNCO Letter Text Normal [facility] CNOVon 11-02-2020 CNOV Office Visit (ORTHMN) GUCCILEIA PEREZ ([id number]) 1950 F Date Time Provider Department 11/02/20 [...] and sleeping. Follow up: six weeks con mill hand plate mill Cortisone injection Films prior to visit: If [...] the pa (more content not included)... Normal [facility] XR KNEE 4V AP/PA BOTH+LAT/ME R [...] more advanced at the right patellofemoral compartment. Wheel Fitter: BRIAN Transcribe Date/Time: Nov 02 2020 1:37P Dictated by : ERVIN AIKEN MD This examination was interpreted and the report reviewed and electronically signed by: ERVIN AIKEN MD on Nov 02 2020 1:38PM EST [id number] Normal [facility] Vital Signs Date Time Vital Sign Value Performing Clinician Facility 02-18-2023 11:45-0400 Body height 175.3 cm Angela Landry DO Work Phone: [facility] 02-18-2023 11:45-0400 Body mass index (BMI) [Ratio] 35.88 kg/m2 Angela Landry DO Work Phone: [facility] 02-18-2023 11:45-0400 Body weight 110.22 kg Angela Landry DO Work Phone: [facility] 02-18-2023 11:45-0400 Diastolic blood pressure 60 mm[Hg] Angela Landry DO Work Phone: [facility] 02-18-2023 11:45-0400 Heart rate 60 /min Angela Landry DO Work Phone: [facility] 02-18-2023 11:45-0400 Systolic blood pressure 100 mm[Hg] Angela Landry DO Work Phone: [facility] 12-27-2022 12:25-0400 Body height 175.26 cm Janette David Other [employer] Other 12-27-2022 12:25-0400 Body mass index (BMI) [Ratio] 35.23 kg/m2 Janette Hernandez Other [employer] Other 12-27-2022 12:25-0400 Body temperature 96.8 [degF] Janette Hernandez Other [employer] Other 12-27-2022 12:25-0400 Body weight 108.23 kg Janette Hernandez Other [employer] Other 12-27-2022 12:25-0400 Diastolic blood pressure 80 mm[Hg] Janette Hernandez Other [employer] Other 12-27-2022 12:25-0400 Respiratory rate 18 /min Janette Hernandez Other [employer] Other 12-27-2022 12:25-0400 SaO2% (BldA) [Mass fraction] 96 % Janette Hernandez Other [employer] Other 12-27-2022 12:25-0400 Systolic blood pressure 130 mm[Hg] Janette Hernandez Other [employer] Other 08-20-2022 11:17-0400 Body height 175.26 cm Xavier Robbins Work Phone: [employer] [facility] [employer] 250 DO Work Phone: 08-20-2022 11:17-0400 Body mass index (BMI) [Ratio] 36.18 kg/m2 Xavier Robbins Work Phone: [facility] 250 DO Work Phone: 08-20-2022 11:17-0400 Body surface area Derived from formula 2.25 m2 Xavier Aguilaryer Work Phone: [facility] 250 DO Work Phone: 08-20-2022 11:17-0400 Body weight 111.13 kg Edalejandro Aguilaryer Work Phone: [facility] 250 DO Work Phone: 08-20-2022 11:17-0400 Diastolic blood pressure 72 mm[Hg] Xavier Aguilaryer Work Phone: [facility] 250 DO Work Phone: 08-20-2022 11:17-0400 Heart rate 68 /min Xavier Aguilaryer Work Phone: [facility] 250 DO Work Phone: 08-20-2022 11:17-0400 Systolic blood pressure 122 mm[Hg] Xavier Aguilaryer Work Phone: [facility] 250 DO Work Phone: 03-27-2022 08:53-0500 Body height 175.26 cm Xavier Aguilaryer Work Phone: [facility] 250 DO Work Phone: 03-27-2022 08:53-0500 Body mass index (BMI) [Ratio] 36.77 kg/m2 Xavier Aguilaryer Work Phone: [facility] 250 DO Work Phone: 03-27-2022 08:53-0500 Body surface area Derived from formula 2.27 m2 Xavier Robbins Work Phone: [facility] 250 DO Work Phone: 03-27-2022 08:53-0500 Body weight 112.95 kg Xavier Robbins Work Phone: [facility] 250 DO Work Phone: 03-27-2022 08:53-0500 Diastolic blood pressure 72 mm[Hg] Xavier Aguilaryer Work Phone: [facility] DO Work Phone: 03-27-2022 08:53-0500 Heart rate 78 /min Xavier Aguilaryer Work Phone: [facility] 250 DO Work Phone: 03-27-2022 08:53-0500 Systolic blood pressure 114 mm[Hg] Xavier Robbins Work Phone: [facility] DO Work Phone: 03-14-2022 14:00-0500 Diastolic blood pressure 76 mm[Hg] MD Dario Forman Work Phone: [facility] 03-14-2022 14:00-0500 Heart rate 66 /min MD Dario Forman Work Phone: [facility] 03-14-2022 14:00-0500 Respiratory rate 16 /min MD Dario Forman Work Phone: [facility] 03-14-2022 14:00-0500 SaO2% (BldA) [Mass fraction] 96 % MD Dario Forman Work Phone: [facility] 03-14-2022 14:00-0500 Systolic blood pressure 173 mm[Hg] MD Dario Forman Work Phone: [facility] 03-14-2022 11:59-0500 Body temperature 98.2 [degF] MD Dario Forman Work Phone: [facility] 03-14-2022 11:57-0500 Body height 175.26 cm MD Dario Forman Work Phone: [facility] 03-14-2022 06:00-0500 Body weight 114.9 kg MD Dario Forman Work Phone: [facility] 03-14-2022 00:00-0500 65 1 Xavier Robbins Work Phone: [facility] 250 DO Work Phone: Comment on above: [id number] 03-13-2022 14:45-0500 Inhaled oxygen flow rate 2 L/min MD Dario Forman Work Phone: [facility] Encounters Encounter Date Encounter Type Care Provider Facility Start: 05-06-2023 End: 05-07-2023 ambulatory MARK VAN Not Available Start: 03-17-2023 End: 03-17-2023 ambulatory XAVIER ROBBINS Not Available Start: 03-09-2023 End: 03-09-2023 ambulatory XAVIER ROBBINS Not Available Start: 02-18-2023 End: 02-18-2023 ambulatory [facility] Ambulatory Start: 02-18-2023 End: 02-18-2023 Office outpatient visit 15 minutes Angela Landry DO Work Phone: [facility] Comment on above: ASHD (arteriosclerot ic heart disease); History of myocardial infarction; Status post insertion of drug eluting coronary artery stent; Class 2 obesity due to excess calories with body mass index (BMI) of 36.0 to 36.9 in adult, unspecified whether serious comorbidity present; SOB (shortness of breath) on exertion Start: 12-27-2022 End: 12-27-2022 ambulatory Janette Hernandez Other [employer] Other Start: 12-27-2022 Office outpatient vi sit 15 minutes Janette Hernandez [facility] Start: 08-20-[address] Xavier Robbins Facility: Start: 08-20-2022 Office outpatient vi sit 15 minutes Xavier Robbins Work Phone: [facility] 250 DO Work Phone: Start: 03-27-2022 Office outpatient vi sit 25 minutes Xavier Robbins Work Phone: [facility] DO Work Phone: Start: 03-27-[address] Xavier Robbins Facility: Start: 03-14-[address] Xavier Robbins Facility:[facility] Start: 03-13-2022 End: 03-14-2022 Evaluation and management of inpatient Xavier Robbins Facility:[facility] Start: 03-13-2022 End: 03-13-2022 ambulatory UNKNOWN PROVIDER Facility:[facility] Start: 03-13-2022 End: 03-14-2022 Evaluation and management of inpatient MD Dario Forman Work Phone: [facility] Start: 03-13-2022 End: 03-13-2022 ambulatory [...] procedure 02/24/2024 11:30 AM EST Office Visit [facility] [address] [place] [id number] Angela Landry S, DO [address] [place] [address] [facility] Start: 02-18-2023 FUV, Provider: Angela Landry, Status: Pen, Time: 11:00 AM FUV, Provider: Angela Landry, Status: Pen, Time: 11:[address] [facility] 250 DO Work Phone: Start: 12-19-2022 Influenza vaccination Influenza Vaccine (#1) [facility] Start: 08-20-2022 FUV, Provider: Angela Landry, Status: Pen, Time: 10:40 AM FUV, Provider: Angela Landry, Status: Pen, Time: 10:[address] [facility] 250 DO Work Phone: Start: 05-27-2022 COVID-19 Vaccine (4 - Moderna series) COVID-19 Vaccine (4 - Moderna series) [facility] Start: 03-14-2022 [facility] Start: 03-13-2022 Hospital admission [facility] Start: 09-22-2019 Pneumococcal Vaccine: 65+ Years (2 - PCV) Pneumococcal Vaccine: 65+ Years (2 - PCV) [facility] Start: 05-12-2011 DTaP/Tdap/Td Vaccines (1 - Tdap) DTaP/Tdap/Td Vaccines (1 - Tdap) [facility] Start: 1998 Zoster Vaccines (1 of 2) Zoster Vaccines (1 of 2) [facility] Start: 1988 Screening for malignant neoplasm of breast Mammogram [facility] Start: 1966 Hepatitis C screening Hepatitis C Screening [facility] Start: 1950 Lipid panel Lipid Panel [facility] Start: 1950 Medicare Annual Wellness Visit Medicare Annual Wellness Visit (AWV) [facility] Start: 1950 Screening for malignant neoplasm of colon [facility] Start: 1950 Screening for osteoporosis Bone Density Scan [facility] Patient Education High Blood Pre ssure (DC) Heart Attack (DC) Low Salt Diet What Can Go Wrong After a Heart Attack? Lowering Your Risk of Heart Disease Aspirin to Prevent Heart Attacks and Cancer [facility] Work Phone: Patient referral [facility] Work Phone: Immunizations Immunization Date Immunization Notes Care Provider Gilmar falk 04-01-2022 influenza virus vaccine, unspecified formulation Angela Landry DO Work Phone: [facility] Work Phone: 09-21-2018 pneumococcal polysaccharide vaccine, 23 valent Janette Hernandez Other [employer] Other 05-11-2011 tetanus and diphther ia toxoids, adsorbed, preservative free, for adult use (5 Lf of tetanus toxoid and 2 Lf of diphtheria toxoid) Janette Hernandez Other [facility] [employer] Other Payers Date Payer Category Payer Medicare [id number] 2022 Self-pay 2021 Medicare [id number] 2021 Unknown 2020 Unknown [id number] 40 1950 Unknown [id number] 2.16.84 [id number] 1950 Unknown [id number] 2.16. [id number] 1950 Unknown [id number] 2.16. [id number] 1950 Unknown [id number] 2.16. [id number] 1950 Unknown [id number] 2.16.8 [id number] 1950 Unknown [id number] 2.16.84 [id number] 1950 Unknown [id number] 2.16.840 .[id number] 1950 Unknown [id number] 2.16.840 [id number] Unknown [id number] 2.16.8 [id number] Social History Date Type Detail Facility Start: 03-13-2022 End: 02-18-2023 Tobacco smoking status NHIS Never smoked tobacco (finding) [facility] Start: 1950 Sex Assigned At Female F [facility] Start: 02-18-2023 Caffeine use Caffeine use [facility] [employer] [facility] DO Work Phone: Start: 02-18-2023 Sex Assigned At N [facility] [employer] Other Start: 02-18-2023 Tobacco use and exposure Smokeless tobacco non-user [facility] Work Phone: Start: 02-18-2023 Alcohol intake Current drinke r of alcohol (finding) [facility] Work Phone: Start: 1950 Sex Assigned At [facility] file [facility] Work [facility]: Start: 02-08-2023 End: 02-18-2023 Exposure to SARS-CoV-2 (event) Not sure [facility] Medical Equipment Procedure Code Equipment Code Equipment Origin al Text Equipment Identifier Dates Drug-eluting coronary artery stent, [id number]-lshixocroalsy-jy lymer-coated ()[id number] FDA Start: 03-13-2022 Goals Date Patient Goal Desired Activity /State Functional Status Date Assessment Result Facility 03-14-2022 Functional status Patient at [facility] Work Phone: Mental Status Date Assessment Result Facility 03-14-2022 Cognitive function Cognitive Sta tus Patient at [facility] Work Phone: Clinical Notes 11-02-2020 [...] breath) on exertion documented in this encounter [facility] Work Phone: 02-18-2023 Instructions Aries Metzger MA [...] Prevention Education Given documented in this encounter [facility] Work Phone: 12-27-2022 Evaluation note Encounter Date [...] understanding and is agreeable with treatment plan [employer] Other 11-25-2022 Discharge summary Author Dario Fomran [facility] March 14, 2022 3:25pm Note Date/Time March 14, 2022 3:10pm [facility] [address] [place] [address] Discharge Summary Signed Patient: Leia Ewing MR#: [id number] : 1950 Acct:[id number] Age/Sex: 71 / F Adm Date: 2 Loc: Room: [address] [place] [address]: Dario Forman MD Copies to: [...] 71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 EKG was consistent with acute inferior STEMI. I was contacted and the [facility] cardiac Fiberglass Roving Winder was activated. The patient was broughtdirectly to the cardiac catheterization suite for emergent treatment of acute inferolateral lateral STEMI. Please see my cardiac catheterization and PCI notes for full details of the patient's procedure. However the patient was found to have an occluded third OM branch of the left circumflex. Primary PCI was successfully performed with implantation of a single resolute Aurora drug-eluting stent with zoroastrianism of JHONNY-3 flow into the target vessel. [...] with the right arm 2. Follow-up in Located Within [facility] within 10 days 3. Enrollment in [...] % (Auto) 80.0, Lymph % (Auto) 8.8, Wood % (Auto) 10.2, Eos % (Auto) 0.7, Baso % (Auto) 0.3, Neut # (Auto) 10.1 H, Lymph # (Auto) 1.1, Wood # (Auto) 1.3 H, Eos # (Auto) [...] <Electronically signed by Dario Forman MD> 03/14/22 1524 [facility] Work Phone: 1(385) 184-211911-24-2022 History and physical note Author Dario Forman [facility] March 13, 2022 2:01pm Note Date/Time March 13, 2022 1:49pm [facility] [address] [place] [address] Cardiology H&P Signed Patient: Leia Ewing MR#: [id number] : 1950 Acct:[id number] Age/Sex: 71 / F Adm Date: 2 Loc: Room: [address] [place] [address] Type: ADM IN Attending Dr: Dario Forman [...] patient's family member took her directly to [place] emergency department for evaluation. In [place] ED initial ECG showed a current of [...] secondary to the patient's urgently ill condition) [facility] Vaccinated for COVID-19?: Unknown Meds Medications and [...] Dysrhythmias Sinus rhythms and dysrhythmias: sinus rhythm MN, pacemaker, normal Myocardial infarction: inferior MN (acute or recent) A&P - Cardiology (1) [...] signed by Dario Forman MD> 03/13/22 14[facility] Work Phone: 1(170) 132-426811-24-2022 Procedure [facility]11-24-2022 Procedure [facility]10-18-2021 Note HNO ID: [id number] Author: Yonas Luciano PA-C Service: ? Author Type: Physician Airline Transport Pilot Type: Progress Notes Filed: 02/04/2021 3:03 PM [...] previously because of the arthritic changes near akqt-tq-zjbu of the lateral compartment she will have [...] Has a valgus aligned knee with near ifyo-bg-wcqo lateral compartment Follow up: As needed consider cortisone injection Films prior to visit: No additional imaging warranted. SIGNATURE: Yonas Luciano PA-C PATIENT NAME: Leia Ewing DATE: February 04, 2021 TIME: 2:40 [facility]09-27-2021 NoteHNO ID: [id number] Author: Yonas Luciano PA-C Service: ? Author Type: Physician Airline Transport Pilot Type: Progress Notes Filed: 01/14/2021 12:50 PM [...] mild Effusion: effusion present Assessment/Plan ASSESSMENT Diagnosis (S81.112M) Sprain of medial collateral ligament of left [...] Ewing DATE: January 14, 2021 TIME: 12:41 [facility]07-16-2021 NoteHNO ID: [id number] Author: Daiana Bond Ma Service: ? Author [...] They are to contact casting services at [phone] with any questions. Daiana Bond [facility]07-16-2021 NoteHNO ID: [id number] Author: Yonas Luciano PA-C Service: ? Author Type: Physician Airline Transport Pilot Type: Progress Notes Filed: 11/02/2020 1:57 PM [...] and sleeping. Follow up: six weeks con mill hand plate mill Cortisone injection Films prior to visit: If this regimen does not provide pain relief, we will investigate further with advanced imaging. SIGNATURE: Yonas Luciano PA-C PATIENT NAME: Leia Ewing DATE: November 02, 2020 TIME: 1:45 [facility]07-16-2021 NoteHNO ID: [id number] Author: RT Timo(R) Service: ? Author Type: Tool Machine Set Up Operator Type: Progress Notes Filed: 11/02/2020 1:00 PM [...] Yony Racheal, RT(R) November 02, 2020 12:59 [facility] Diagnosis Onset Date Resolution Status [id number] [facility] Work Phone: Evaluation note* Diagnosis ASHD (arteriosclerotic heart disease) Coronary atherosclerosis of unspecified type of vessel, king salmon or graft History of myocardial infarction Status post insertion of drug eluting coronary artery stent Class 2 obesity due to excess calories with body mass index (BMI) of 36.0 to 36.9 in adult, unspecified whether serious comorbidity present SOB (shortness of breath) on exertion Shortness of breath documented in this encounter [facility] Work Phone: History general Narrative - Reported* [...] 06/2016 Hospitalization History Rt Total Hip Replacement [facility] Dr Novak 06/22/2017 [employer] Other Reason for referral (narrative)* Consultation (Routine) - Authorized Specialty Diagnoses / Procedures Referred By Gil morse Referred To Contact Cardiology Diagnoses ASHD (arteriosclerotic heart disease) History of myocardial infarction Status post insertion of drug eluting coronary artery stent Procedures Follow Up In Cardiology Angela Landry DO [address] [facility] [address] [place] [address] Angela Landry DO [address] [facility] [address] [place] [address] Referral ID Status Reason Start Date Expiration Date V isits Requested Visits Authorized [id number] Authorized 02/18/2023 02/18/2024 1 1 T [facility] Work Phone: Summary Purpose Family History No [...] Visit Chief Complaint Stemi Reason for Visit [id number] Chief Complaint * LEIA EWING is being seen for a 6 month follow-up of. * 71-year-old female returns for follow-up and doing well she has no cardiovascular complaints. She denies angina or nitrate usage or recurrent hospitalizations. 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 around Thanksgiving, underwent primary [...] usage or recurrent hospitalizations. 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 around [place], underwent primary [...] section and content) DATE CREATED AUTHOR 05/23/2021 [facility] DATE CREATED AUTHOR AUTHOR'S ORGANIZ ATION 12/14/2021 [facility] dical Specialist DATE CREATED AUTHOR AUTHOR'S ORGANIZ ATION 03/19/2022 [facility] DATE CREATED AUTHOR AUTHOR'S ORGANIZ ATION 03/19/2022 [facility] DATE CREATED AUTHOR AUTHOR'S ORGANIZ ATION 05/24/2022 [facility] DATE CREATED AUTHOR AUTHOR'S ORGANIZ ATION 08/22/2022 [facility] DATE CREATED AUTHOR AUTHOR'S ORGANIZ ATION 08/22/2022 [employer] DATE CREATED AUTHOR AUTHOR'S ORGANIZ ATION 02/20/2023 [facility] DATE CREATED AUTHOR AUTHOR'S ORGANIZ ATION 05/10/2023 [facility] dical Specialists EPIC Care Teams (unrecognized sec tion and content) Team Status: Inactive Member Role Status Dates Dario Forman MD Admit Provider, Attending Provider A ctive Xavier Robbins MD Primary Care Provider Active Team Status: Active Member Role Status Dates Xavier Robbins MD Primary Care Provider Active Prune Washer Relationship Specialty Start Date End Date Xavier Robbins MD [address] [place] [address] PCP - General 03/14/22 REASON FOR [...] BE BASED ON THE PRIMARY CLINICAL RECORDS. [facility]. provides no warranty or guarantee of the accuracy or completeness of information in this document.
[2023-07-19] MEDS: LACTATED RINGER'S SOLUTION 1,000 ML 50 ML IV (15:28)
[2023-07-19] MEDS: METOPROLOL SUCCINATE 50 MG TAB.ER.24H 100 MG PO (15:29)
[2023-07-19] MEDS: CEFTRIAXONE 1,000 MG in 0.9 % SODIUM CHLORIDE 50 ML 100 MG IV (15:29)
[2023-07-19] MEDS: LEVOFLOXACIN IN DEXTROSE 5 % 750 MG/150 ML IV.SOLN 100 MG IV (16:30)
[2023-07-19] MEDS: ATORVASTATIN CALCIUM 40 MG TABLET 80 MG PO (20:41)
[2023-07-19] MEDS: APIXABAN 5 MG TABLET PO (20:42)
[2023-07-19] MEDS: MONTELUKAST SODIUM 10 MG TABLET PO (20:42)
[2023-07-19] MEDS: LACTOSE -REDUCED (ENSURE ORIGINAL 237 ML LIQUID) PO (20:44)
[2023-07-20] VITALS (17 sets, daily range): BP systolic 107–145; BP diastolic 55–76; PULSE 64–89; TEMP 36.3–36.9; O2SAT 94–98
[2023-07-20] MEDS: TRAMADOL HCL 50 MG TABLET PO ×2 (04:29→11:27)
[2023-07-20 05:39] LABS: Basophils Absolute Auto 0.1 10^3/uL (0.0-0.1); Basophils Percent Auto 0.3 % (0.2-2.0); Eosinophils Absolute Auto 0.2 10^3/uL (0.0-0.7); Eosinophils Percent Auto 1.5 % (0.9-7.0); Hematocrit 30.7 % (36.0-48.0); Immature Granulocytes Abs Auto 0.06 10^3/uL (0.00-0.03); Immature Granulocytes Pct Auto 0.4 % (0.0-0.5); Lymphocytes Absolute Auto 1.3 10^3/uL (1.2-3.8); Lymphocytes Percent Auto 9.1 % (20.5-60.0); Mean Corpuscular HGB Conc 32.6 g/dL (29.9-35.2); Mean Corpuscular Hemoglobin 29.9 pg (26.7-34.0); Mean Corpuscular Volume 91.6 fL (81.0-99.0); Mean Platelet Volume 10.8 fL (9.5-13.5); Monocytes Absolute Auto 1.5 10^3/uL (0.3-0.8); Monocytes Percent Auto 10.4 % (1.7-12.0); Neutrophils Absolute Auto 11.3 10^3/uL (1.4-6.5); Neutrophils Percent Auto 78.3 % (43.0-75.0); Platelet Count 327 10^3/uL (150-450); Red Blood Count 3.35 10^6/uL (4.20-5.40); Red Cell Distribution Width 14.4 % (11.0-15.0); White Blood Count 14.5 10^3/uL (4.0-11.0)
[2023-07-20] MEDS: OMEPRAZOLE 20 MG CAPSULE.DR PO (05:41)
[2023-07-20 06:09] LABS: Alanine Aminotransferase 26 U/L (14-59); Albumin Globulin Ratio 0.6; Albumin Level 2.4 g/dL (3.4-5.0); Alkaline Phosphatase 102 U/L (46-116); Anion Gap 16.8; Aspartate Amino Transferase 15 U/L (15-37); BUN Creatinine Ratio 15.2; Bilirubin Total 0.9 mg/dL (0.2-1.0); Calcium 8.7 mg/dL (8.5-10.1); Carbon Dioxide 21.2 mmol/L (21.0-32.0); Chloride 102 mmol/L (98-107); Estimated GFR (African America 51 (>=60); Estimated GFR (Non-African Ame 42 (>=60); Globulin 3.7 g/dL; Glucose 130 mg/dL (74-106); Sodium 136 mmol/L (136-145); Total Protein 6.1 g/dL (6.4-8.2)
--- NOTE | 2023-07-20 08:56 | P.PN_ITS ---
Progress Note: Subjective Subjective Interval history: States does feel a little bit better than yesterday. But not significantly. Still difficulty with ambulation. Exam Constitutional Vital Signs, click to edit/add: Last Vital Signs Temp 98.5 F 07/20/23 04:00 Pulse 72 07/20/23 08:00 Resp 18 07/20/23 04:00 BP 145/76 H 07/20/23 04:00 Pulse Ox 98 07/20/23 04:00 O2 Del Method Room Air 07/20/23 04:00 Documenting provider has reviewed patient's vital signs: yes Common normals: apparent distress (Moderate painful distress) HENMT Common normals: normocephalic; oral mucous membranes not moist (Dry mucous membranes) Chest Common normals: inspection of chest normal Respiratory Common normals: normal respiratory effort, no retractions, no use of accessory muscles and clear to auscultation bilaterally Cardio Common normals: regular rate, regular rhythm, no gallops and no murmurs GI Common normals: Normal to inspection, nondistended, normoactive bowel sounds present, soft to palpation, non-tender and no masses Extremity Common normals: normal to inspection and full ROM Progress Note: Objective Labs Labs: Short CBC 07/19/23 07/20/23 Range/Units 09:20 04:20 WBC 15.5 H 14.5 H (4.0-11.0) 10^3/uL Hgb 11.0 L 10.0 L (12.0-16.0) g/dL Hct 35.1 L 30.7 L (36.0-48.0) % Plt Count 315 327 (150-450) 10^3/uL BMP 07/19/23 07/20/23 09:20 04:20 Sodium 138 136 Potassium 3.6 4.0 Chloride 101 102 Carbon Dioxide 23.0 21.2 BUN 17.0 19.0 H Creatinine 1.27 H 1.25 H Glucose 148 H 130 H Calcium 9.2 8.7 Liver Function 07/19/23 07/20/23 Range/Units 09:20 04:20 Total Bilirubin 1.0 0.9 (0.2-1.0) mg/dL AST 12 L 15 (15-37) U/L ALT 24 26 (14-59) U/L Alkaline Phosphatase 117 H 102 (46-116) U/L Albumin 2.8 L 2.4 L (3.4-5.0) g/dL Urine 07/19/23 Range/Units 09:30 Urine Color Lt. yellow (YELLOW) Urine Clarity Clear (CLEAR) Urine pH 7.5 (5.0-9.0) Ur Specific [place] 1.015 (1.005-1.025) Urine Protein 30 A (NEG/TRACE) mg/dL Urine Glucose (UA) Negative (NEGATIVE) mg/dL Progress Note: A&P Assessment and Plan (1) UTI (urinary tract infection): Plan Uncontrolled hypertension, increasing leukocytosis, elevated liver function test, -sepsis due to UTI with failed outpatient treatment with Macrobid. With progression of urine findings, now with positive nitrates, likely resistant organism, continue with broad-spectrum antibiotics secondary to the sepsis Right shoulder pain-physical therapy to work with patient. No fall or injury currently Generalized weakness secondary to the above-physical therapy to work with patient. For patient safety she may benefit from rehab. Iron deficiency anemia-fairly stable but will monitor daily CKD 3-monitor daily-back to baseline Spgaqercayvepl-knzuxizxlt-cdxolka Moderate protein calorie malnutrition-diet supplement Atrial fibrillation-rate controlled, continue with current medications Inpatient criteria: Patient will be placed as inpatient, failed outpatient treatment of acute UTI and sepsis due to UTI and generalized weakness and persisting leukocytosis-necessary medical treatment will span more than 2 midnights. Based on further testing and cultures 3 to 4 days a is highly likely Urinary Catheter Management Urinary Catheter Management Straight: Cath placed during this visit: yes Urethral indwelling: No Insertion date: 07/19/23 Insertion time: 09:36
--- NOTE | 2023-07-20 09:15 | CM.NOTE ---
Rounds made with Dr. Stevens, PT and OT will evaluate pt today for discharge needs. No discharge today.
[2023-07-20] MEDS: POLYETHYLENE GLYCOL 3350 17 GM POWDER PACKET PO (09:55)
[2023-07-20] MEDS: LOSARTAN POTASSIUM 50 MG TABLET 100 MG PO (09:55)
[2023-07-20] MEDS: MAGNESIUM OXIDE 400 MG TABLET PO ×2 (09:56→21:36)
[2023-07-20] MEDS: DILTIAZEM HCL 300 MG CAP.ER.24H PO (09:56)
[2023-07-20] MEDS: CALCIUM CARBONATE 500 MG (200MG ELEMENTAL) TAB CHEW PO (09:56)
[2023-07-20] MEDS: GABAPENTIN 300 MG CAPSULE 600 MG PO (09:56)
[2023-07-20] MEDS: APIXABAN 5 MG TABLET PO ×2 (09:56→21:37)
[2023-07-20] MEDS: METOPROLOL SUCCINATE 50 MG TAB.ER.24H 100 MG PO (09:56)
[2023-07-20] MEDS: OXYBUTYNIN chloride 5 MG TABLET PO (09:56)
[2023-07-20] MEDS: SERTRALINE HCL 100 MG TABLET PO (09:56)
[2023-07-20] MEDS: LACTATED RINGER'S SOLUTION 1,000 ML 50 ML IV (11:27)
--- NOTE | 2023-07-20 11:47 | SWNOTE1 ---
SW spoke to physical therapy and they recommend skilled. SW spoke to daughter at medical front desk specialist as she was getting ready to leave. She is in agreement with pt going skilled. SW reviewed pt's insurance with daughter and that not all facilities take devoted. Pt used to work at [employer], but does not want [employer]. SW provided list from medicare.gov with star ratings. Pt lives with daughter in [place]. Daughter would like [facility]. Daugher is POA, but pt is alert and oriented. SW advised daughter to bring in POA paperwork, she voiced she will. SW went down to room to speak with pt, she is in agreement to go skilled and is open to going to [facility]. Pt uses a walker at home and is at home with her daughter, son in law, and 3 grandchildren. Referral sent to [facility]. Referral included face sheet, ED note, H&P, provider notes, case management report, nursing notes, diagnostic imaging, med list, and PT note. Will send OT once completed.
--- NOTE | 2023-07-20 12:02 | SWNOTE1 ---
SW spoke with Loretta at [facility] and they are reviewing referral.
--- NOTE | 2023-07-20 12:32 | SWNOTE1 ---
MEDARDO recevied message from Isabel at [facility] and they can accept and they started precert.
--- NOTE | 2023-07-20 13:29 | SWNOTE1 ---
Pt is approved to go to [facility]. SW updated doctor.
--- NOTE | 2023-07-20 13:32 | SWNOTE1 ---
Plan is for discharge tomorrow to [facility].
--- NOTE | 2023-07-20 14:39 | SWNOTE1 ---
SW updated daughter, Terrie, in regards to pt being approved to go to [facility] and plan is for tomorrow.
[2023-07-20] MEDS: CEFTRIAXONE 1,000 MG in 0.9 % SODIUM CHLORIDE 50 ML 100 MG IV (16:58)
[2023-07-20] MEDS: 0.9 % SODIUM CHLORIDE 250 ML 10 ML IV (16:58)
[2023-07-20] MEDS: ACETAMINOPHEN 500 MG TABLET 1000 MG PO (17:00)
[2023-07-20] MEDS: LACTOSE -REDUCED (ENSURE ORIGINAL 237 ML LIQUID) PO (21:36)
[2023-07-20] MEDS: MONTELUKAST SODIUM 10 MG TABLET PO (21:36)
[2023-07-20] MEDS: ATORVASTATIN CALCIUM 40 MG TABLET 80 MG PO (21:37)
[2023-07-21] VITALS (15 sets, daily range): BP systolic 121–151; BP diastolic 62–76; PULSE 64–83; TEMP 36.6–37.2; O2SAT 93–97
[2023-07-21] MEDS: TRAMADOL HCL 50 MG TABLET PO (00:06)
[2023-07-21 04:58] LABS: Hematocrit 31.5 % (36.0-48.0); Hemoglobin 9.9 g/dL (12.0-16.0); Mean Corpuscular HGB Conc 31.4 g/dL (29.9-35.2); Mean Corpuscular Hemoglobin 29.5 pg (26.7-34.0); Mean Corpuscular Volume 93.8 fL (81.0-99.0); Mean Platelet Volume 10.3 fL (9.5-13.5); Platelet Count 338 10^3/uL (150-450); Red Blood Count 3.36 10^6/uL (4.20-5.40); Red Cell Distribution Width 14.6 % (11.0-15.0); White Blood Count 14.8 10^3/uL (4.0-11.0)
[2023-07-21 05:21] LABS: Alanine Aminotransferase 20 U/L (14-59); Albumin Globulin Ratio 0.6; Albumin Level 2.4 g/dL (3.4-5.0); Alkaline Phosphatase 102 U/L (46-116); Anion Gap 13.2; Aspartate Amino Transferase 9 U/L (15-37); BUN Creatinine Ratio 16.9; Bilirubin Total 0.6 mg/dL (0.2-1.0); Calcium 8.7 mg/dL (8.5-10.1); Chloride 103 mmol/L (98-107); Estimated GFR (African America 54 (>=60); Estimated GFR (Non-African Ame 45 (>=60); Globulin 3.7 g/dL; Glucose 123 mg/dL (74-106); Potassium 4.2 mmol/L (3.5-5.1); Sodium 137 mmol/L (136-145); Total Protein 6.1 g/dL (6.4-8.2)
[2023-07-21 05:33] LABS: Atypical Lymphocytes Abs Man 0.59; Basophils Abs Manual 0.14 10^3/uL (0.00-0.10); Eosinophils Absolute Manual 0.44 10^3/uL (0.00-0.70); Lymphocytes Absolute Manual 0.29 10^3/uL (1.20-3.80); Monocytes Absolute Manual 1.48 10^3/uL (0.30-0.80); Segmented Neut Absolute Manual 11.84 10^3/uL (1.4-6.5)
[2023-07-21] MEDS: OMEPRAZOLE 20 MG CAPSULE.DR PO (06:08)
[2023-07-21] MEDS: ACETAMINOPHEN 500 MG TABLET 1000 MG PO (06:08)
[2023-07-21] MEDS: DILTIAZEM HCL 300 MG CAP.ER.24H PO (09:18)
[2023-07-21] MEDS: MAGNESIUM OXIDE 400 MG TABLET PO (09:18)
[2023-07-21] MEDS: CALCIUM CARBONATE 500 MG (200MG ELEMENTAL) TAB CHEW PO (09:18)
[2023-07-21] MEDS: GABAPENTIN 300 MG CAPSULE 600 MG PO (09:18)
[2023-07-21] MEDS: APIXABAN 5 MG TABLET PO (09:18)
[2023-07-21] MEDS: METOPROLOL SUCCINATE 50 MG TAB.ER.24H 100 MG PO (09:18)
[2023-07-21] MEDS: OXYBUTYNIN chloride 5 MG TABLET PO (09:19)
[2023-07-21] MEDS: SERTRALINE HCL 100 MG TABLET PO (09:19)
[2023-07-21] MEDS: LOSARTAN POTASSIUM 50 MG TABLET 100 MG PO (09:19)
[2023-07-21] MEDS: POLYETHYLENE GLYCOL 3350 17 GM POWDER PACKET PO (09:19)
[2023-07-21] MEDS: LACTOSE -REDUCED (ENSURE ORIGINAL 237 ML LIQUID) PO (09:19)
--- NOTE | 2023-07-21 10:36 | P.DS_ITS ---
DS: Providers Provider Date of admission: 07/19/23 14:17 Primary care physician: ASIA ROBBINS Consults: 07/19/23 13:13 Consult to Pharmacy Routine Consulting Provider: Reason for consultation: Please [place] me when Med Rec is Updated Has provider been notified: No Consult to Patient Coordinator Front Desk Routine Has provider been notified: No Reason for consult:: Half-Way Other reason:: placement Occupational Therapy Eval and Treat Routine Reason for consultation: Only if needed for Rehab Has provider been notified: No Physical Therapy Eval and Treat Routine Reason for consultation: Eval and Treat Has provider been notified: No DS: Diagnosis Discharge Diagnosis (1) UTI (urinary tract infection): Plan Uncontrolled hypertension, increasing leukocytosis, elevated liver function test, -sepsis due to UTI with failed outpatient treatment with Macrobid. With progression of urine findings, now with positive nitrates, likely resistant organism, continue with broad-spectrum antibiotics secondary to the sepsis Right shoulder pain-physical therapy to work with patient. No fall or injury currently Generalized weakness secondary to the above-physical therapy to work with patient. For patient safety she may benefit from rehab. Iron deficiency anemia-fairly stable but will monitor daily CKD 3-monitor daily-back to baseline Nidhhfzxxwxikl-nihsmozptp-tmwvjnk Moderate protein calorie malnutrition-diet supplement Atrial fibrillation-rate controlled, continue with current medications Inpatient criteria: Patient will be placed as inpatient, failed outpatient treatment of acute UTI and sepsis due to UTI and generalized weakness and persisting leukocytosis-necessary medical treatment will span more than 2 midnights. Based on further testing and cultures 3 to 4 days a is highly likely DS: Summary Hospital Course Hospital Course: Patient admitted with Uncontrolled hypertension, increasing leukocytosis, elev ated liver function test, -sepsis due to UTI with failed outpatient treatment with Macrobid. Given IV antibiotics of Rocephin and levofloxacin. IV fluids. Patient was improved somewhat yesterday but still weak and not eating well. Today she is much improved. Right blood cell count is slightly elevated today. But overall with her improvement in her creatinine and her strength she is stable for discharge to rehab. Urine growing Klebsiella. Medications see list. Follow-up with PCP after discharge from rehab. Time Spent with Patient Time attestation: Total time spent providing and/or coordinating discharge services: Exam Constitutional Vital Signs, click to edit/add: Last Vital Signs Temp 97.9 F 07/21/23 08:05 Pulse 74 07/21/23 10:00 Resp 18 07/21/23 08:05 BP 150/70 H 07/21/23 09:19 Pulse Ox 97 07/21/23 09:11 O2 Del Method Room Air 07/21/23 09:11 Documenting provider has reviewed patient's vital signs: yes Common normals: no apparent distress [facility] Common normals: normocephalic; oral mucous membranes not moist (Dry mucous membranes) Chest Common normals: inspection of chest normal Respiratory Common normals: normal respiratory effort, no retractions, no use of accessory muscles and clear to auscultation bilaterally Cardio Common normals: regular rate, regular rhythm, no gallops and no murmurs GI Common normals: Normal to inspection, nondistended, normoactive bowel sounds present, soft to palpation, non-tender and no masses Extremity Common normals: normal to inspection and full ROM DS: Data Data Completed and Pending Labs on day of discharge: Labs from last 24 hours 07/21/23 04:07 WBC 14.8 H RBC 3.36 L Hgb 9.9 L Hct 31.5 L MCV 93.8 MCH 29.5 MCHC 31.4 RDW 14.6 Plt Count 338 MPV 10.3 Seg Neuts % (Manual) 80.0 Lymphocytes % (Manual) 2.0 L Atypical Lymphs % (Man) 4.0 Monocytes % (Manual) 10.0 Eosinophils % (Manual) 3.0 Basophils % (Manual) 1.0 Neutrophils # (Manual) 11.84 H Lymphocytes # (Manual) 0.29 L Abs Atypical Lymphs Man 0.59 Monocytes # (Manual) 1.48 H Eosinophils # (Manual) 0.44 Basophils # (Manual) 0.14 H Sodium 137 Potassium 4.2 Chloride 103 Carbon Dioxide 25.0 Anion Gap 13.2 BUN 20.0 H Creatinine 1.18 H Est GFR ( Amer) 54 L Est GFR (Non-Af Amer) 45 L BUN/Creatinine Ratio 16.9 Glucose 123 H Calcium 8.7 Total Bilirubin 0.6 AST 9 L ALT 20 Alkaline Phosphatase 102 Total Protein 6.1 L Albumin 2.4 L Globulin 3.7 Albumin/Globulin Ratio 0.6 Discharge Plan Discharge Disposition: Xfer [facility] Discharge Medications: New magnesium oxide 400 mg (241.3 mg magnesium) Tablet 400 mg PO BID Qty: 60 11RF levofloxacin 500 mg tablet 500 mg PO DAILY 10 Days Qty: 10 0RF Continued sertraline 100 mg tablet 100 mg PO Q24H atorvastatin 80 mg tablet 80 mg PO DAILY calcium carbonate [Antacid (calcium carbonate)] 200 mg calcium (500 mg) tablet,chewable 200 mg PO DAILY gabapentin 600 mg tablet 600 mg PO DAILY nitroglycerin 0.4 mg tablet, sublingual 0.4 mg sublingual Q5M Rx Instructions: do not exceed 3 doses per episode omeprazole 20 mg capsule,delayed release(DR/EC) 20 mg PO DAILY oxybutynin chloride 5 mg tablet 5 mg PO DAILY losartan 100 mg tablet 100 mg PO DAILY montelukast 10 mg tablet 10 mg PO DAILY diltiazem HCl 300 mg Capsule,Extended Release 24hr 300 mg PO QD 30 Days Qty: 30 0RF Eliquis 5 mg Tablet 5 mg PO BID 30 Days Qty: 60 0RF metoprolol succinate 50 mg tablet extended release 24 hr 50 mg PO DAILY Qty: 30 0RF Discontinued nitrofurantoin monohyd/m-cryst 100 mg Capsule 100 mg PO BID 7 Days Qty: 14 0RF Patient Comments: 07/13/23-07/20/23 Print Language: [place] Foundation Relations Director/Performing Arts Road Manager Instructions: Discharge to [facility] skilled Forms: Portal Instructions
--- NOTE | 2023-07-21 10:52 | CM.NOTE ---
Rounds made with Dr. Stevens, pt will discharge to [facility] for skilled therapy today.
--- NOTE | 2023-07-21 11:54 | PT.DAILY ---
Physical Therapy Daily Note PT Daily Note/Assess Start: 07/20/23 10:49 Freq: Status: Active Protocol: Document 07/21/23 10:50 NAVI (Rec: 07/21/23 11:54 NAVI [id number]) Physical Therapy Daily Note/Assessment Time In/Time Out Time In 10:49 Time Out 11:00 Subjective Subjective Patient reports going to skilled rehab today, but unsure where. Agrees to PT. Therapeutic Activity Time Therapeutic Activity Minutes (minutes) 11 Therapeutic Activity Units 1 Therapeutic Activity Treatment Chair Transfer Ability Contact Guard Assist Therapeutic Activity Comments Sit to stand CGA. Gait 15' with RW CGA today. Limited due to shoulder pain with pushing into RW, but no LOB or need for extra assistance. Seated exercises B LE 10 reps once seated. Total Physical Therapy Time Total Therapy Minutes 11 Total Physical Therapy Units 1 Summary Daily Note Summary Improved ability with gait and transfers requiring decreased need for assistance. Distance was still limited due to pain in B shoulders and weakness.
--- NOTE | 2023-07-21 12:14 | SWNOTE1 ---
Pt is ready for dc today. MEDARDO set up trips for 4:00-4:30. MEDARDO notified daughter of time as well as nursing and [facility]. MEDARDO sent dc med rec to the [facility]. Pt will be going skilled to [facility].
--- NOTE | 2023-07-21 14:08 | PC.NURSE ---
Aide in the room assisting patient to use the bathroom.
--- NOTE | 2023-07-21 15:16 | SWNOTE1 ---
SW completed HENS.
== END 2023-07-21 16:30 ==
LOC: ER 11:31 → MS 07-20 08:58 → ER 07-24 13:38 → MS 07-24 13:38
PROVIDERS: Admitting Provider Family Medicine; Emergency Provider Emergency Medicine; PCP Family Medicine; Visit Provider Family Medicine
DX: A41.50 Gram-negative sepsis, unspecified (principal); N39.0 Urinary tract infection, site not specified; E44.0 Moderate protein-calorie malnutrition; M25.511 Pain in right shoulder; R53.1 Weakness; D50.9 Iron deficiency anemia, unspecified; I12.9 Hypertensive chronic kidney disease with stage 1 through stage 4 chronic kidney disease, or unspecified chronic kidney disease; N18.30 Chronic kidney disease, stage 3 unspecified; E83.42 Hypomagnesemia; R79.89 Other specified abnormal findings of blood chemistry; I48.91 Unspecified atrial fibrillation; F32.A Depression, unspecified; E78.5 Hyperlipidemia, unspecified; I25.10 Atherosclerotic heart disease of native coronary artery without angina pectoris; J45.909 Unspecified asthma, uncomplicated; I25.2 Old myocardial infarction; Z68.35 Body mass index [BMI] 35.0-35.9, adult; Z96.649 Presence of unspecified artificial hip joint; Z79.01 Long term (current) use of anticoagulants; Z79.899 Other long term (current) drug therapy
CPT/HCPCS: 36415; 80053; 81001; 83605; 83735; 83880; 84484; 85007; 85025; 85027; 87040; 87086; 93005; 94667; 94668; 94761; 96365; 96366; 96367; 97161; 97165; 97530; 99285; G0378

== ENCOUNTER 2025-02-26 09:02 | Inpatient (IN) | payer MEDICARE, SELFPAY ==
[2025-02-26] VITALS (7 sets, daily range): BP systolic 108–146; BP diastolic 47–77; PULSE 82–106; TEMP 36.5–37.1; O2SAT 95–99; BMI 31.0; BMI 38.0
--- NOTE | 2025-02-26 09:07 | XR_ITS ---
[facility] [place] [id number] Patient Name: LEIA EWING MRN: [id number] date: 1950 Sex: F Assigned Patient Location: ED.MAIN Current Patient Location: ED.MAIN Accession/Order Number: [id number] Exam Date: 02/26/2025 10:36 Report Date: 02/26/2025 11:48 At the request of: MYRON MARES DO Procedure: XR chest 1V XR chest 1V 02/26/2025 11:04 AM SIGNS AND SYMPTOMS: ^AMS, r/o PNA PROTOCOL: Frontal radiograph of the chest COMPARISON: 07/12/2023 FINDINGS: The trachea is midline. The heart and mediastinal structures are within normal limits. The lung parenchyma is clear. The bony thorax is intact. Degenerative changes are noted in the shoulders and thoracic spine. XR/XR chest 1V IMPRESSION: No acute cardiopulmonary pathology. Impression dictated by: Justus Johnson M.D. 02/26/2025 11:48 AM Dictation Location: [email or web address] Electronically authenticated by: [id number] Date: 02/26/2025 11:48
--- NOTE | 2025-02-26 09:07 | ECG_ITS ---
[facility] Test Date: 2025-02-26 Pat Name: LEIA EWING Department: Room: - Gender: Female Polysomnographic Tech: : 1950 Requested By: [id number] Order Number: [id number] Reading MD: LUIS REYES M.D. Measurements Intervals [place] Rate: 102 P: 90 OR: 162 QRS: 7 QRSD: 80 T: 55 QT: 340 QTc: 399 Interpretive Statements 1120 Sinus tachycardia 1470 with occasional supraventricular premature complexes 8101 Low QRS voltage in limb leads 9140 abnormal rhythm ECG Compared to ECG 07/19/2023 08:59:38 Low QRS voltage now present Electronically Signed On 02-26-2025 16:43:43 EST by LUIS REYES M.D.
--- NOTE | 2025-02-26 09:07 | CT_ITS ---
[address] [address] Patient Name: LEIA EWING MRN: [id number] date: 1950 Sex: F Assigned Patient Location: ED.MAIN Current Patient Location: ED.MAIN Accession/Order Number: [id number] Exam Date: 02/26/2025 10:36 Report Date: 02/26/2025 11:52 At the request of: MYRON MARES DO Procedure: CT cervical spine wo con CT cervical spine wo con 02/26/2025 11:04 AM SIGN AND SYMPTOMS: neck pain, AMS TECHNIQUE: Multi detector CT axial slices of the cervical spine were obtained without IV contrast. Volumetric acquisition sagittal, coronal, and 3-D reconstructions were performed and reviewed. CT was performed with one or more of the following dose reduction techniques: Automated exposure control, adjustment of the mA and/or kV according to patient size, or use of iterative reconstruction technique. COMPARISON: None. FINDINGS: There is preservation of the vertebral body heights. There is moderate disc height loss at C6-C7 with mild disc height loss at C5-C6. There is uncovertebral joint spurring at C3-C4, C5-C6, and C6-C7. Facet hypertrophy is present throughout. No fractures or dislocations are seen. The alignment of the cervical spine is normal. The craniocervical junction is within normal limits. Degenerative changes are noted in the atlantoaxial joint. The prevertebral soft tissues are within normal limits. The paraspinous soft tissues are within normal limits. The lung apices are unremarkable. There is heterogeneous enlargement of the left thyroid lobe. Nonemergent ultrasound correlation is recommended as malignancy is not excluded. CT/CT cervical spine wo con IMPRESSION: No fracture or subluxation. Degenerative changes are noted throughout cervical spine as above. There is heterogeneous enlargement of the left thyroid lobe. Nonemergent ultrasound correlation is recommended as malignancy is not excluded. Impression dictated by: Justus Johnson M.D. 02/26/2025 11:52 AM Dictation Location: [place] [address] Electronically authenticated by: [id number] Y Date: 02/26/2025 11:52
--- NOTE | 2025-02-26 09:07 | CT_ITS ---
The [address] [address] Patient Name: LEIA EWING MRN: [id number] date: 1950 Sex: F Assigned Patient Location: ED.MAIN Current Patient Location: ED.MAIN Accession/Order Number: [id number] Exam Date: 02/26/2025 10:36 Report Date: 02/26/2025 10:59 At the request of: MYRON MARES DO Procedure: CT head/brain wo con CT head/brain wo con 02/26/2025 9:09 AM SIGNS AND SYMPTOMS: AMS, h/o dementia TECHNIQUE:Multi-detector CT axial slices of the brain were obtained without IV contrast. CT was performed with one or more of the following dose reduction techniques: Automated exposure control, adjustment of the mA and/or kV according to patient size, or use of iterative reconstruction technique. COMPARISON: None. FINDINGS: There is no shift of the midline structures, acute intracranial bleeding, mass effects, or evidence of acute ischemia. Atherosclerotic changes are noted in the intracranial segments of the internal carotid arteries and V4 segments of the vertebral arteries. The ventricular system is normal in size. The brainstem and the cerebellum are unremarkable. The visualized intraorbital contents and the infratemporal soft tissues show no acute abnormality. Mild mucosal thickening is noted in the left sphenoid sinus. The osseous structures in the skull base and the calvarium show no abnormality. CT/CT head/brain wo con IMPRESSION: No acute intracranial pathology. Mild chronic atherosclerotic changes are noted. Impression dictated by: Justus Johnson M.D. 02/26/2025 10:59 AM Dictation Location: [place] [address] Electronically authenticated by: [id number] Y Date: 02/26/2025 10:59
--- OUTSIDE RECORDS SUMMARY | 2025-02-26 09:13 | XMS_ITS | Clinical Summary ---
Author Organization [facility] Address [address] [place] [address] Care Team Providers Care Last Cleaner Name Role Phone Alberto Canales MD Unavailable [phone] Xavier Wyatt MD Primary Care Provider Skip Garcia MD Unavailable Chuy Hull Unavailable [phone] Allergies Active AllergyReactionsCriticalityNoted DateCommentsAzithromycinSwellingHigh 02/18/2023 Reaction Date:hives Erythromycin Base10/07/2022 Other Reaction(s): hives Molds & Smuts10/07/2022 Other Reaction(s): Unknown Qnzkw-Xqfvj-Zipdggq-Rsdsvjkvo38/20/2023 Other Reaction(s): rash,itching LvvgslFaifSxy50/20/2023 Medications MedicationSigDispense QuantityRefillsLast FilledStart DateEnd DateStatus albuterol (2.5 MG/3ML) 0.083% nebulizer solution Take 2.5 mg by nebulization every 6 (six) hours if needed.Active albuterol HFA 90 mcg/act inhaler Inhale 2 puffs in the morning and 2 puffs at noon and 2 puffs in the evening and 2 puffs before bedtime.Active Ascorbic Acid (Vitamin C) 500 MG capsule Take 1 capsule by mouth in the morning.Active Multiple Vitamins-Minerals (Multivitamin Women 50+) tablet Take 1 tablet by mouth in the morning.Active nitroglycerin (Nitrostat) 0.[address] 0.4 mg under the tongue every 5 (five) minutes if needed for chest pain. Active omeprazole OTC (PriLOSEC OTC) 20 MG EC tablet Take 20 mg by mouth in the morning. Take before meals. Do not crush, chew, or split. .Active Eliquis 5 MG tablet Take 5 mg by mouth in the morning and 5 mg before bedtime.07/13/2023ctive magnesium oxide (Mag-Ox) 400 mg tablet 400 mg in the morning and 400 mg before bedtime.Active celecoxib (CeleBREX) 100 MG capsule Take 50 mg by mouth in the morning and 50 mg in the evening.Active aspirin 81 MG EC tablet Take 81 mg by mouth 2 (two) times a weekActive gabapentin (Neurontin) 600 MG tablet Indications:Chronic pain syndromeTake 1 tablet (600 mg) by mouth at bedtime 90 tablet ctive losartan (Cozaar) 100 MG tablet Indications:Benign essential hypertensionTake 1 tablet (100 mg) by mouth Daily 90 tablet ctive metoprolol succinate XL (Toprol-XL) 50 MG 24 hr tablet Indications:Benign essential hypertensionTake 0.5 tablets (25 mg) by mouth Daily 45 tablet ctive montelukast (Singulair) 10 MG tablet Indications:Simple chronic bronchitis (HCC)Take 1 tablet (10 mg) by mouth at bedtime 90 tablet ctive sertraline (Zoloft) 100 MG tablet Indications:Recurrent major depressive disorder, in partial remissionTake 1 tablet (100 mg) by mouth Daily 90 tablet ctive atorvastatin (Lipitor) 80 MG tablet Indications:Mixed hyperlipidemiaTake 1 tablet (80 mg) by mouth Daily 90 tablet ctive Active Problems ProblemNoted DateDiagnosed DateArthritis of left knee08/04/2024rthritis of right knee08/04/2024History of heart yvwqvk5503/02/2024aroxysmal atrial jkdkychcsjml35/01/2024 Overview (09/10/2023): Last Assessment & Plan: Initially identification June 2023 hospitalization at [facility] in setting of UTI and hypomagnesia. Converted on Cardizem drip. EKG in office today maintaining normal sinus rhythm correction current use of anticoagulant tpjzmzm0608/19/2023 Overview (09/10/2023): Last Assessment & Plan: CHADS VASc 4 currently on full dose Eliquis age 72, weight 236 pounds. Denies bleeding diatheses Denies history of frequent falls May be cost prohibitive, provided with patient assistance forms and samples. 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, left kgjvghvi02/19/2023iceps tendinitis of left obmunqee78/19/2023llergic rhinitis due to afmbnb0710/07/2022ulging of intervertebral disc between L4 and L5 10/07/2022rthritis of lumbar spine10/07/2022enign essential hypertension 10/07/2022hronic pain gdwesrvl05/20/2023oronary artery disease involving [place] coronary artery of [place] heart without angina wdztypmq43/20/2023 Difficulty otruhcu2710/07/2022Hemiparesis of left nondominant side due to non- cerebrovascular bcupuzms75/20/2023Hypertensive yfjvkkxggyg21/20/2023Lumbosacral spondylosis with xtwjmqwamc58/20/4970Mhaveplbfwwzlxjl94/20/2023Mild intermittent asthma without hzdfrufhnfup66/20/2023Mixed pcdecscwquyepp75/20/2023Morbid obesity due to excess hmdhmgxy16/20/2023rimary osteoarthritis, right shoulder 10/07/2022Recurrent major depressive disorder, in partial yvhzhjalw56/20/2023 Restless leg ugokbeek97/20/2023Simple chronic axvqjhsckt40/20/2023Stage 3a chronic kidney jmgjpei9610/07/2022History of right hip ewlaqgpkpsx82/20/2023Status post left hip vpmflxfkart31/20/2023Stented coronary mhfjyt4910/07/2022Urge incontinence of urine10/07/2022Uses roller voliso5010/07/2022 Resolved Problems ProblemNoted DateDiagnosed DateResolved DateST elevation (STEMI) myocardial infarction involving left circumflex coronary oxslxo08Ischemic gagqqusjrwfcag79 Encounters DateTypeDepartmentCare RicqPhholbpsacz65/26/2025Refill [facility] [address] [place] [address] [place] [address] Xavier Wyatt MD Chronic pain ngquegda44/23/2025 10:30 AM EDTOffice Visit [facility] [address] [place] [address] [place] [address] Xavier Wyatt MD Simple chronic bronchitis (HCC); Mild intermittent asthma without complication (HCC); Urge incontinence of urine; Recurrent major depressive disorder, in partial remission ; Difficulty walking; Morbid obesity due to excess calories ([facility]); Acute cystitis without hematuria; Mixed wjruswplbkitpg12/23/2025amboo flowsheet [facility] [address] [place] [address] [place] [address] Xavier Wyatt MD 01/10/20251677Ofkewg74/09/2025Telephone [facility] [address] [place] [address] [place] [address] [place], [place] Care Ostfhxxuxsag52/04/2025Telephone [facility] [address] [place] [address] [place] [address] [place] 12/03/2024Refill [facility] [address] [place] [address] [place] [address] Xavier Wyatt MD Simple chronic bronchitis (HCC); Urge incontinence of urine; Recurrent major depressive disorder, in partial dqzwyxbec49/11/2025 2:00 PM EDT Office Visit [facility] [address] [place] [address] [place] [address] Xavier Wyatt MD Visit for suture wpxwjgn6911/28/2024amboo [place]sheet [place] [address] [place] [address] Xavier Wyatt MD 11/28/2024Travelfrom Last 3 Months Immunizations ImmunizationAdministration DatesNext DueInfluenza, High-dose Seasonal, Quadrivalent, Preservative Free04/01/2022Influenza, Seasonal, Quadrivalent, Wblrqwpbwt94/30/2021Influenza, injectable, quadrivalent, preservative free 03/19/2021,03/13/2020Influenza, seasonal, intradermal, preservative free 02/08/2013Influenza, trivalent, ndudcjikaw80/02/2024Moderna Bivalent Booster Erezmmgkqhh84/13/2022Moderna SARS-CoV-2 Booster Mhtfbbiibec22/02/2024 Pneumococcal Polysaccharide TZAE8271,05/11/2010Td (adult), 5 Lf tetanus toxoid, preservative free, ysdvbyzt36/22/2012 Family History Medical HistoryRelationNameCommentsNo Known ProblemsDaughterLeukemiaFatheracute monocyticatacute monocyticFatherAtrial fibrillationMotherHypertensionMother StrokeMotherNo Known ProblemsSisterNo Known ProblemsSonRelationNameStatus CommentsDaughter1 daughter, healthyFatherDeceased (Age 76)MotherDeceased (Age 81)Sister1 sisterSon1 son Social History Tobacco UseTypesPacks/DayYears UsedDateSmoking Tobacco: NeverSmokeless Tobacco: Never Tobacco Cessation:Counseling Given: Yes Comments:Tobacco non-user: current non-smoker Alcohol UseStandard Drinks/WeekCommentsNot Currently0 (1 standard drink = 0.6 oz pure alcohol)1-2 drinks less than monthly in the past year, Caffeine intake 1-2 cups per day coffee, soda/popSocial Connection and Isolation PanelAnswerDate RecordedIn a typical week, how many times do you talk on the phone with family, friends, or neighbors?More than three times a week08/07/2023How often do you get together with friends or relatives?More than three times a week08/07/2023How often do you attend sabianist or orthodoxy services?More than 4 times per year 08/07/2023o you belong to any clubs or organizations such as sabianist groups, unions, fraternal or athletic groups, or school groups?No08/07/2023How often do you attend meetings of the clubs or organizations you belong to?Never08/07/2023 Are you , , , , never , or living with a partner?Bjjtyxc7408/07/2023UDIT-CAnswerDate RecordedQ1: How often do you have a drink containing alcohol?Never08/07/2023Q2: How many drinks containing alcohol do you have on a typical day when you are drinking?Patient does not drink 08/07/2023Q3: How often do you have six or more drinks on one occasion?Never 08/07/2023Overall Financial Resource Strain (CARDIA)AnswerDate RecordedHow hard is it for you to pay for the very basics like food, housing, medical care, and heating?Not hard at all08/07/2023HQ-2AnswerDate RecordedPatient Health Questionnaire-2 Drjhs264[facility] [place] of Occupational Health - Occupational Stress QuestionnaireAnswerDate RecordedDo you feel stress - tense, restless, nervous, or anxious, or unable to sleep at night because yourmind is troubled all the time - these days?Not at all08/07/2023Exercise Vital SignAnswer Date RecordedOn average, how many days per week do you engage in moderate to strenuous exercise (like a brisk walk)?0 days08/07/2023On average, how many minutes do you engage in exercise at this level?0 min08/07/2023Hunger Vital Sign AnswerDate RecordedWithin the past 12 months, you worried that your food would run out before you got the money to buymore.Never true08/07/2023Within the past 12 months, the food you bought just didn't last and you didn't have money to get more.Never true08/07/2023RAPARE - TransportationAnswerDate RecordedIn the past 12 months, has lack of transportation kept you from medical appointments or from getting medications?No08/07/2023In the past 12 months, has lack of transportation kept you from meetings, work, or from getting things needed for daily living?No08/07/2023Housing Stability Vital SignAnswerDate RecordedIn the last 12 months, was there a time when you were not able to pay the mortgage or rent on time?No08/07/2023In the last 12 months, how many places have you lived?1 08/07/2023In the last 12 months, was there a time when you did not have a steady place to sleep or slept in ashelter (including now)?No4Comments NoSex and Gender InformationValueDate RecordedSex Assigned at BirthNot on file Legal PsxRfmsoe12/15/2023 6:50 PM EDTGender IdentityNot on fileSexual OrientationNot on file Last Filed Vital Signs Vital SignReadingTime TakenCommentsBlood Qhuprezp049/7208 9:25 AM EDT Zsods27954/23/2025 10:46 AM ZLRDhicvfkedah40.6 ??C (96 ??F)09/16/2023 11:57 AM EDTRespiratory Rate--Oxygen Jvhfylkojf52%01/10/2025 10:46 AM EDTInhaled Oxygen Concentration--Hvxbuu326 kg (256 lb)01/10/2025 10:46 AM JQNMvnqyo637.3 cm (5' 9 )01/10/2025 10:46 AM EDTBody Mass Index37.809 10:46 AM EDT Plan of Treatment DateTypeDepartmentCare Team (Latest Contact Info)Ewwhjebjxgs83/03/2026 11:00 AM ESTOffice Visit [facility] [address] [facility] [address] [address] Xavier Wyatt MD [address] [address] (Fax) 07/05/2025 10:30 AM EDTOffice Visit [facility] [place] [address] Family [facility] [address] [address] Xavier Wyatt MD [address] [address] (Fax) Health MaintenanceDue DateLast DoneCommentsCOVID-19 Vaccine ( season) /2024, 02/20/2024, 04/01/2022, Additional history existsMedicare Annual Wellness (AWV)511/03/2024, 03/09/2023, 2Pneumococcal Vaccine: 65+ Years (2 of 2 - PCV)606/07/2018, 05/11/2010Postponed from 09/22/2019 (Patient Refused)Influenza Vaccine (#1)611/05/2023, 04/01/2022, 03/19/2021, Additional history existsPostponed from 12/19/2024 (Patient Refused)NiptcmgfyvgGnkiomgtljpa63/16/2013MammogramDiscontinued 03/24/2023, 03/24/2023, 08/12/2017, Additional history existsColorectal Cancer ScreeningDiscontinuedFIT-JHYFgymkdkibaer21/30/2024CT ColonographyDiscontinuedFIT DiscontinuedFOBTDiscontinuedSigmoidoscopyDiscontinued Goals GoalPatient Goal TypeAssociated ProblemsRecent ProgressPatient-Stated?Author Help patient manage antidepressant medication Care PlanPatient on antidepressant monitoring Xavier Barlow MD Procedures Procedure NamePriorityDate/TimeAssociated DiagnosisCommentsLAB COLOGUARD?? COLON CANCER CMAOCJJafqczp76/30/2024 11:30 AM EDT Encounter for screening for malignant neoplasm of colon BI MAMMOGRAM SCREENING VFQFOGPRJAwbogtl48/05/2023 3:29 PM EST Breast screening DORKBUIOFKRMnpuuah27/16/2013 12:00 PM EDT from Last 3 Months or Most Recently Relevant to Health Maintenance Results * Cologuard?? colon cancer screening (01/18/2024 11:30 AM EDT)ComponentValueRef RangeTest MethodAnalysis TimePerformed AtPathologist SignatureNONINV COLON CA DNA+OCC BLD SCRN STL-JIGGutukihtHaxvhbsq32/05/2024 11:40 AM EDTEXTeamLINKS (CLIA #:[id number])Comment: NEGATIVE TEST RESULT. A negative Cologuard result indicates a low likelihood that a colorectal cancer (CRC) or advanced adenoma (adenomatous polyps with more advanced pre-malignant features) ??is present. The chance that a person with a negative Cologuard test has a colorectal cancer is less than 1in 1500 (negative predictive value >99.9%) or has an advanced adenoma is less than 5.3% (negative predictive value 94.7%). These data are based on a prospective cross-sectional study of 10,000individuals at average risk for colorectal cancer who were screened with both Cologuard and colonoscopy. (Mirza Kitchen et al, N Engl J Med 2014;370(14):7133-8335) The normal value (reference range) for this assay is negative. COLOGUARD RE-SCREENING RECOMMENDATION: Periodic colorectal cancer screening is an important part ofpreventive healthcare for asymptomatic individuals at average risk for colorectal cancer. ??Following a negative Cologuard result, the [employer] [employer] and U.S. Multi-Society Task Force screening guidelines recommend a Cologuard re-screening interval of 3 years. References: [place] [employer] Guideline for Colorectal Cancer Screening: https://www.cancer.or g/cancer/vkkpu-qctlzw-gwuuwa/hhlqdpfbp-bddxerrfl-cklzfsi/acs-recommendations.htm l.; Jarrett DK, Ramonita LEVINE, Laurie SpauldingK, Colorectal Cancer Screening: Recommendations for Physicians and Patients from the U.S. Multi-Society Task Force on Colorectal Cancer Screening , Am J Gastroenterology 2017; 112:8213-4226. TEST DESCRIPTION: Composite algorithmic analysis of stool DNA-biomarkers with hemoglobin immunoassay. ?? Quantitative values of individual biomarkers are not reportable and are not associated with individual biomarker result reference ranges. Cologuard is intended for colorectal cancer screening ofadults of either sex, 45 years or older, who are at average-risk for colorectal cancer (CRC). Cologuard has been approved for use by the U.S. FDA. The performance of Cologuard was established in a cross sectional study of average-risk adults aged 50-84. Cologuard performance in patients ages 45 to 49 years was estimated by sub-group analysis of near-age groups. Colonoscopies performed for a positive result may find as the most clinically significant lesion: colorectal cancer [4.0%], advanced adenoma (including sessile serrated polyps greater than or equal to 1cm diameter) [20%] or non- advanced adenoma [31%]; or no colorectal neoplasia [45%]. These estimates are derived from a prospective cross-sectional screening study of 10,000 individuals at average risk for colorectal cancer who were screened with both Cologuard and colonoscopy. (Mirza Yoder al, N Engl J Med 2014;370(14):7956-7847.) Cologuard may produce a false negative or false positive result (no colorectal cancer or precancerous polyp present at colonoscopy follow up). A negative Cologuard test result does not guarantee the absence of CRC or advanced adenoma (pre-cancer). The current Cologuard screening interval is every 3 years. ([place] [employer] and U.S. Multi-Society Task Force). Cologuard performance data in a 10,000 patient pivotal study using colonoscopy as the reference method can be accessed at the following location: www.[employer].[facility] End[facility]/results. Additional description of the Cologuard test process, warnings and precautions can be found at www.cologuard.com. Specimen (Source)Anatomical Location / LateralityCollection Method / Volume Collection TimeReceived TimeStool specimen (specimen)01/18/2024 11:30 AM EDT 01/20/2024 8:14 AM EDT Narrative Authorizing ProviderResult TypeResult StatusXavier GUZMÁN [facility]NO[facility] ORDERABLESFinal ResultPerforming OrganizationAddressCity/State/ZIP CodePhone Number .[employer] (CLIA #:[id number]) [address] [place] [address], [employer] (CLIA #:[id number]) [address] [address] * Bilateral screening mammogram (03/24/2023 3:29 PM EST) Narrative Authorizing ProviderResult TypeResult Christofer GUTIERREZG BI PROCEDURES Final ResultPerforming OrganizationAddressCity/State/ZIP CodePhone Number [address] [address], * Colonoscopy (01/03/2013 12:00 PM EDT)Anatomical RegionLateralityModality EndoscopySpecimen (Source)Anatomical Location / LateralityCollection Method / VolumeCollection TimeReceived Time01/03/2013 12:00 PM EDT Narrative 01/03/2013 12:00 PM EDT PERFORMED AT [facility] LOCATION:[id number] Polyp at 45 cm tubular adenoma Procedure Note CONVERSION, GENERIC - 09/04/2022 PERFORMED AT [facility] LOCATION:[id number] Polyp at 45 cm tubular adenoma Authorizing ProviderResult TypeResult StatusEdalejandro Wyatt MDENDOSCOPY PROCEDURE ORDERABLESFinal Result from Last 3 Months or Most Recently Relevant to Health Maintenance Additional Health Concerns Active ProblemsNoted DateDiagnosed DatePatient on antidepressant monitoring plan 07/12/2024 Insurance Advance Directives TypeDate RecordedPatient RepresentativeExplanationAdvance Directives and Living Will DNRAdvance Directives and Living Will Power Of AttorneyAdvance Directives and Living Will Power Of Coal Sample Tester Care Teams Team MemberRelationshipSpecialtyStart DateEnd Date Xavier Wyatt MD [address] [facility] [address] [place] [address] [facility]24 Alberto Canales MD [address] [facility] [address] [place] [address] Referring PhysicianCardiology08/04/23 Skip Garcia MD [address] [place] [address] Referring PhysicianOrthopaedic Moosvtn39/20/25 Chuy Hull PA [address] [facility] [address] [place] [address] Physician AssistantOrthopaedic Udeuksh13/20/25
--- OUTSIDE RECORDS SUMMARY | 2025-02-26 09:13 | XMS_ITS | Encounter Summary ---
Author Organization [facility] Address [address] [place] [address] Care Team Providers Care Supervisor Rose Grading Name Role Phone Alberto Canales MD Unavailable [phone] Xavier Wyatt MD Primary Care Provider [phone] Xavier Wyatt MD Unavailable [phone] Skip Garcia MD Unavailable [phone] Chuy Hull Unavailable [phone] Reason for Visit * ReasonCommentsMed Refill Encounter Details DateTypeDepartmentCare Team (Latest Contact Info)Xnplhkbtkeh09/26/2025Refill [facility] [place] [address] Family Medicine [address] [place] [address] Xavier Wyatt MD [address] [facility] [address] [place] [address] (Fax) Chronic pain syndrome Social History Tobacco UseTypesPacks/DayYears UsedDateSmoking Tobacco: NeverSmokeless Tobacco: Never Comments:Tobacco non-user: c urrent non-smoker Alcohol UseStandard Drinks/WeekCommentsNot Currently0 (1 standard [...] times a week08/07/2023How often do you attend advent or islam services?More than 4 times per year 08/07/2023o you belong to any clubs or organizations such as advent groups, unions, fraternal or athletic groups, or school groups?No08/07/2023How often do you attend meetings of the clubs or organizations you belong to?Never08/07/2023 Are you , , , , never , or living with a partner?Cjfslpd6808/07/2023UDIT-CAnswerDate RecordedQ1: How often do you have a [...] heating?Not hard at all08/07/2023HQ-2AnswerDate RecordedPatient Health Questionnaire-2 Gxrbw825[facility] [place] of Occupational Health - Occupational Stress QuestionnaireAnswerDate [...] to sleep or slept in ashelter (including now)?No08/07/2023Comments NoSex and Gender InformationValueDate RecordedSex Assigned at BirthNot on file Legal HjaHxgdpp53/15/2023 6:50 PM EDTGender IdentityNot on fileSexual OrientationNot on filedocumented as of this encounter Plan of Treatment DateTypeDepartmentCare Team (Latest Contact Info)Zbrgxixjeii90/03/2026 11:00 AM ESTOffice Visit [facility] [place] [address] Family [facility] [address] [address] Xavier Wyatt MD [address] [place] [address] 07/05/2025 10:30 AM EDTOffice Visit [facility] [address] [address] Xavier Wyatt MD [address] [address] documented as of this encounter Goals GoalPatient Goal TypeAssociated ProblemsRecent ProgressPatient-Stated?Author Help patient manage antidepressant medication Care PlanPatient on antidepressant monitoring Xavier Barlow MD documented as of this encounter Visit Diagnoses Diagnosis Chronic pain syndrome documented in this encounter Additional Health Concerns Active ProblemsNoted DateDiagnosed DatePatient on antidepressant monitoring plan 5AssessmentNoted TimePHQ-9 Depression Total Score: 511/ 2:00 PM ESTA fall risk assessment has been completed for the dakuxkg3008/07/2023 3:12 PM EDTdocumented as of this encounter Care Teams Team MemberRelationshipSpecialtyStart DateEnd Xavier Wyatt MD [address] [facility] 100 [place] [address] PCP - GeneralFamily Medicine11/15/24 Xavier Wyatt MD [address] [facility] 100 [place] [address] PCP - Humana104/2510 Alberto Canales MD 703 [facility] 2[address] [place] [address] Referring PhysicianCardiology08/04/23 [place] [address] [place] [address] Referring PhysicianOrthopaedic Gfaivxk86/20/25 Chuy Hull PA [address] [facility] 110 [place] [address] Physician AssistantOrthopaedic Bvmqqaw71/20/25documented as of this encounter
--- OUTSIDE RECORDS SUMMARY | 2025-02-26 09:13 | XMS_ITS | Encounter Summary ---
Author Organization [facility] Address [address] [place] [address] Care Team Providers Care Senior Laboratory Technician Name Role Phone Xavier Wyatt MD Unavailable + [phone] Xavier Wyatt MD Primary Care Provider +[phone] Alberto Canales MD Unavailable [phone] Dilia Kilpatrick RN Unavailable [phone] Xavier Wyatt MD Primary Care Provider + Xavier Wyatt MD Unavailable + [phone] Skip Garcia MD Unavailable [phone] Chuy Hull Unavailable [phone] Encounter Details DateTypeDepartmentCare Team (Latest Contact Info)Horwrehewnq26/17/2024Clinisync Result Encounter [facility] External Department Unsolicited Provider, Generic External Data Social History Tobacco UseTypesPacks/DayYears UsedDateSmoking Tobacco: NeverSmokeless [...] times a week08/07/2023How often do you attend restorationism or jew services?More than 4 times per year 08/07/2023o you belong to any clubs or organizations such as restorationism groups, unions, fraternal or athletic groups, or school groups?No08/07/2023How often do you attend meetings of the clubs or organizations you belong to?Never08/07/2023 Are you , , , , never , or living with a partner?Jkrftgu0808/07/2023UDIT-CAnswerDate RecordedQ1: How often do you have a [...] heating?Not hard at all08/07/2023HQ-2AnswerDate RecordedPatient Health Questionnaire-2 Ymsux704Finlake[facility] [place] of Occupational Health - Occupational Stress QuestionnaireAnswerDate [...] steady place to sleep or slept in [place] crossing[place]ter (including now)?No08/07/2023Comments NoSex and Gender InformationValueDate RecordedSex Assigned at BirthNot on file Legal AoaEogopy65/15/2023 6:50 PM EDTGender IdentityNot on fileSexual OrientationNot on filedocumented as of this encounter Functional Status * Over the past 2 weeks, how often have you been bothered by any of the following problems?QuestionAnswerDate of AssessmentAuthorLittle interest or pleasure in doing thingsNot at all01/10/2025 10:47 AM Ama Weeks, LISY Feeling down, depressed, or hopelessNot at all01/10/2025 10:47 AM Ama Weeks [facility] Questionnaire-2 Mxigi969 10:47 AM Ama Weeks, LISY documented as of this encounter Plan of Treatment DateTypeDepartmentCare Team (Latest Contact Info)Seogrreukvi71/03/2026 11:00 AM ESTOffice Visit [facility] [place] [address] Family Medicine [address] [place] [address] Xavier Wyatt MD 112 [place] [address] [place] [address] 07/05/2025 10:30 AM EDTOffice Visit [facility] [place] [address] Family Medicine [address] [place] [address] [place] [address] Xavier Wyatt MD 112 [address] [place] [address] documented as of this encounter Procedures Procedure NamePriorityDate/TimeAssociated DiagnosisCommentsTRANSTHORACIC ECHO (TTE) POUTSDPB10/17/2024 10:49 AM EDT documented in this encounter Results * Transthoracic echo (TTE) complete (09/04/2023 10:49 AM EDT)Anatomical Region LateralityModalityUltrasoundSpecimen (Source)Anatomical Location / Laterality Collection Method / VolumeCollection TimeReceived Time09/04/2023 10:49 AM EDT Narrative 09/04/2023 1:17 PM EDT ?[address], [place] [address] ? TRANSTHORACIC ECHOCARDIOGRAM REPORT Patient Name: ?LEIA ALMEIDA ? Reading Physician: ?[id number] Gama ? Colleen NOLAN Study Date: ?09/04/2023 ? Ordering Provider: ?[id number] GUS K ? MONROE MRN/PID: ? [id number] ?Fellow: Accession#: ?[id number] ?Nurse: Date of /Age: 7 1950 / 72 years ?? Snap Shearer: ?Aye Hoover ? RDCS, RVT Gender: ?F ? Additional Staff: Height: ?175.26 cm ? Admit Date: Weight: ?107.05 kg ? Admission Status: BSA / BMI: ? 2.22 m2 / 34.85 kg/m2 Department Location: ??[facility] ? 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 Ischemic cardiomyopathy-I25.5 Indication: ?HTN, Hyperlipidemia, NV and PTCA-02/2022, Obesity, Shortness of ? Breath on Exertion CPT Codes: ? Echo Complete w Full Doppler-[id number] Study Detail: The following Echo studies were performed: 2D, M-Mode, Doppler and ?color flow. PHYSICIAN INTERPRETATION: Left Ventricle: Left ventricular systolic function is normal, with an estimated ejection fraction of 50-55%. There are no regional wall motion abnormalities. The left ventricular cavity size is normal. The left ventricular septal wall thickness is mildly increased. Spectral Doppler shows a normal pattern of left ventricular diastolic filling. Left Atrium: The left atrium is normal in size. Right Ventricle: The right ventricle is normal in size. There is normal right ventricular global systolic function. Right Atrium: The right atrium is normal in size. Aortic Valve: The aortic valve appears structurally normal. There is no evidence of aortic valve regurgitation. The peak instantaneous gradient of the aortic valve is 6.5 mmHg. The mean gradient of the aortic valve is 3.0 mmHg. Mitral Valve: The mitral valve is normal in structure. There is no evidence of mitral valve regurgitation. Tricuspid Valve: The tricuspid valve is structurally normal. No evidence of tricuspid regurgitation. Pulmonic Valve: The pulmonic valve is not well visualized. There is no indication of pulmonic valveregurgitation. Pericardium: There is no pericardial effusion noted. Aorta: The aortic root is normal. CONCLUSIONS: 1. Left ventricular systolic function is normal with a 50-55% estimated ejection fraction. QUANTITATIVE DATA SUMMARY: 2D MEASUREMENTS: ? Normal Ranges: Ao Root d: ? 3.00 cm ?? (2.0-3.7cm) LAs: ? 3.80 cm ?? (2.7-4.0cm) RVIDd: ? 2.68 cm ?? (0.9-3.6cm) IVSd: ?1.26 cm ?? (0.6-1.1cm) LVPWd: ? 0.94 cm ?? (0.6-1.1cm) LVIDd: ? 4.91 cm ?? (3.9-5.9cm) LVIDs: ? 3.39 cm LV Mass Index: 90.7 g/m2 LV % FS ?31.0 % LV SYSTOLIC FUNCTION BY 2D PLANIMETRY (MOD): ?Normal Ranges: EF-A4C View: 53.4 % (>=55%) LV DIASTOLIC FUNCTION: ? Normal Ranges: MV Peak E: ?0.81 m/s (0.7-1.2 m/s) MV Peak A: ?0.69 m/s (0.42-0.7 m/s) E/A Ratio: ?1.19 ? (1.0-2.2) MV lateral e' 0.09 m/s MV medial e' ??0.07 m/s E/e' Ratio: 9.50 (<8.0) MITRAL VALVE: ? Normal Ranges: MV Vmax: 0.94 m/s (<=1.3m/s) MV peak P.5 mmHg (<5mmHg) MV mean P.0 mmHg (<48mmHg) AORTIC VALVE: ?Normal Ranges: AoV Vmax: 1.27 m/s (<=1.7m/s) AoV Peak P.5 mmHg (<20mmHg) AoV Mean PG: ? 3.0 mmHg (1.7-11.5mmHg) LVOT Max Frank: 0.74 m/s (<=1.1m/s) AoV VTI: ? 30.90 cm (18-25cm) LVOT VTI: ?14.90 cm LVOT Diameter: ? 2.20 cm ??(1.8-2.4cm) AoV Area, VTI: ? 1.83 cm2 (2.5-5.5cm2) AoV Area,Vmax: ? 2.23 cm2 (2.5-4.5cm2) AoV Dimensionless Index: 0.48 PULMONIC VALVE: ?Normal Ranges: PV Max Frank: 0.6 m/s ?? (0.6-0.9m/s) PV Max PG: ??1.5 mmHg PIEDV: ?1.76 m/s PADP: ? 15.4 mmHg [id number] Gama Macias MD Electronically signed on 09/04/2023 at 1:17:02 PM Final Procedure Note Radiology, Radiologist, MD - 09/04/[address], [address], [place] [address] TRANSTHORACIC ECHOCARDIOGRAM REPORT Patient Name: LEIA ALMEIDA Reading Physician: [id number] NguyennMD Study Date: 09/04/2023 Ordering Provider: [id number] HELENA CHILDRESS MRN/PID: [id number] Fellow: Nurse: Date of /Age: 7 1950 / 72 years Snap Shearer: Nelia GAY RVT Gender: F Additional Staff: Height: 175.26 cm Admit Date: Weight: 107.05 kg Admission Status: BSA / BMI: 2.22 m2 / 34.85 kg/m2 Department Location: [facility] Blood Pressure: 122 /68 mmHg Study Type: TRANSTHORACIC ECHO (TTE) COMPLETE Diagnosis/ICD: Paroxysmal atrial fibrillation-I48.0; Atheroscleroticheart disease of [place] coronary artery without anginapectoris-I25.10; Ischemic cardiomyopathy-I25.5 Indication: HTN, Hyperlipidemia, NV and PTCA-02/2022, Obesity,Shortness of Breath on Exertion CPT Codes: Echo Complete w Full Doppler-22426 Study Detail: The following Echo studies were performed: 2D, M-Mode,Doppler and color flow. PHYSICIAN INTERPRETATION: Left Ventricle: Left ventricular systolic function is normal, with anestimated ejection fraction of 50-55%. There are no regional wall motionabnormalities. The left ventricular cavity size is normal. The leftventricular septal wall thickness is mildly increased. Spectral Dopplershows a normal pattern of left ventricular diastolic filling. Left Atrium: The left atrium is normal in size. Right Ventricle: The right ventricle is normal in size. There is normalright ventricular global systolic function. Right Atrium: The right atrium is normal in size. Aortic Valve: The aortic valve appears structurally normal. There is noevidence of aortic valve regurgitation. The peak instantaneous gradient ofthe aortic valve is 6.5 mmHg. The mean gradient of the aortic valve is 3.0mmHg. Mitral Valve: The mitral valve is normal in structure. There is noevidence of mitral valve regurgitation. Tricuspid Valve: The tricuspid valve is structurally normal. No evidenceof tricuspid regurgitation. Pulmonic Valve: The pulmonic valve is not well visualized. There is noindication of pulmonic valve regurgitation. Pericardium: There is no pericardial effusion noted. Aorta: The aortic root is normal. CONCLUSIONS: 1. Left ventricular systolic function is normal with a 50-55% estimatedejection fraction. QUANTITATIVE DATA SUMMARY: 2D MEASUREMENTS: Normal Ranges: Ao Root d: 3.00 cm (2.0-3.7cm) LAs: 3.80 cm (2.7-4.0cm) RVIDd: 2.68 cm (0.9-3.6cm) IVSd: 1.26 cm (0.6-1.1cm) LVPWd: 0.94 cm (0.6-1.1cm) LVIDd: 4.91 cm (3.9-5.9cm) LVIDs: 3.39 cm LV Mass Index: 90.7 g/m2 LV % FS 31.0 % LV SYSTOLIC FUNCTION BY 2D PLANIMETRY (MOD): Normal Ranges: EF-A4C View: 53.4 % (>=55%) LV DIASTOLIC FUNCTION: Normal Ranges: MV Peak E: 0.81 m/s (0.7-1.2 m/s) MV Peak A: 0.69 m/s (0.42-0.7 m/s) E/A Ratio: 1.19 (1.0-2.2) MV lateral e' 0.09 m/s MV medial e' 0.07 m/s E/e' Ratio: 9.50 (<8.0) MITRAL VALVE: Normal Ranges: MV Vmax: 0.94 m/s (<=1.3m/s) MV peak P.5 mmHg (<5mmHg) MV mean P.0 mmHg (<48mmHg) AORTIC VALVE: Normal Ranges: AoV Vmax: 1.27 m/s (<=1.7m/s) AoV Peak P.5 mmHg (<20mmHg) AoV Mean P.0 mmHg (1.7-11.5mmHg) LVOT Max Frank: 0.74 m/s (<=1.1m/s) AoV VTI: 30.90 cm (18-25cm) LVOT VTI: 14.90 cm LVOT Diameter: 2.20 cm (1.8-2.4cm) AoV Area, VTI: 1.83 cm2 (2.5-5.5cm2) AoV Area,Vmax: 2.23 cm2 (2.5-4.5cm2) AoV Dimensionless Index: 0.48 PULMONIC VALVE: Normal Ranges: PV Max Frank: 0.6 m/s (0.6-0.9m/s) PV Max P.5 mmHg PIEDV: 1.76 m/s PADP: 15.4 mmHg [id number] Gama Macias MD Electronically signed on 09/04/2023 at 1:17:02 PM Final Authorizing ProviderResult TypeResult StatusGeneric External Data ProviderCV ECHO PROCEDURESFinal Result documented in this encounter Visit Diagnoses Not on filedocumented in this encounter Additional Health Concerns AssessmentNoted TimePHQ-9 Depression Total Score: 2:00 PM ESTA fall risk assessment has been completed for the ndpnnhs0608/07/2023 3:12 PM EDT documented as of this encounter Care Teams Team MemberRelationshipSpecialtyStart DateEnd Date Xavier Wyatt MD [address] [address] PCP - Devoted04/20/2211 Xavier Wyatt MD [address] [place] [address] [facility] Xavier Wyatt MD [address] [place] [address] PCP - GeneralFamily Medicine11/15/24 Xavier Wyatt MD [address] [place] [address] PCP - Human04/20/2510 Alberto Canales MD 703 [facility] 2[address] [place] [address] Referring PhysicianCardiology08/04/23 Dilia Kilpatrick, KERI [address] [place] [address] Registered NurseFamily Medicine Skip Garcia MD [address] [place] [address] Referring PhysicianOrthopaedic Votozaw41/20/25 Chuy Hull PA [address] [place] [address] Physician AssistantOrthopaedic Kazjlap29/20/25documented as of this encounter
--- OUTSIDE RECORDS SUMMARY | 2025-02-26 09:13 | XMS_ITS | Clinical Summary ---
Author Organization [facility] Address [address] [place] [address] Phone Care Team Providers Care Inspector Ball Points Name Role Phone Xavier Wyatt MD Primary Care Provider [phone] Allergies Active AllergyReactionsCriticalityNoted DateCommentsAzithromycinSwellingHigh 02/18/2023 Reaction Date:hives NiuiksjoznjiOdpju67/18/4275NzkoghZwwaiafmHmlegb34/01/2023 Medications MedicationSigDispense QuantityRefillsLast FilledStart DateEnd DateStatus albuterol 90 mcg/actuation inhaler Inhale 1 puff every 4 hours if needed.Active atorvastatin (Lipitor) 80 mg tablet Take 1 tablet (80 mg) by mouth once daily.Active gabapentin (Neurontin) 600 mg tablet Take 1 tablet (600 mg) by mouth once daily at bedtime.Active losartan (Cozaar) 100 mg tablet Take 1 tablet (100 mg) by mouth once daily.Active montelukast (Singulair) 10 mg tablet Take 1 tablet (10 mg) by mouth once daily at bedtime.Active nitroglycerin (Nitrostat) 0.[address] 1 tablet (0.4 mg) under the tongue every 5 minutes if needed for chest pain. CALL 911 IF PAINPERSISTS.Active oxybutynin (Ditropan) 5 mg tablet Take 1 tablet (5 mg) by mouth 2 times a day.Active sertraline (Zoloft) 100 mg tablet Take 1 tablet (100 mg) by mouth once daily.Active multivitamin tablet Take 1 tablet by mouth once daily.Active magnesium oxide (Mag-Ox) 400 mg tablet Take 1 tablet (400 mg) by mouth once daily.Active ascorbic acid (Vitamin C) 500 mg tablet Take 1 tablet (500 mg) by mouth once daily.Active aspirin 81 mg chewable tablet Indications:ASHD (arteriosclerotic heart disease)Take one tablet by mouth twice a week 30 tablet 1104Active omeprazole (PriLOSEC) [address] capsule Take 1 capsule (40 mg) by mouth once daily in the morning. Take before meals. Active metoprolol succinate XL (Toprol-XL) 25 mg 24 hr tablet Take 1 tablet (25 mg) by mouth once daily. Do not crush or chew.Active diclofenac (Voltaren) 25 mg EC tablet Take 1 tablet (25 mg) by mouth if needed (joint pain). Do not crush, chew, or split.Active traMADol (Ultram) 50 mg tablet Take 1 tablet (50 mg) by mouth every 6 hours if needed for severe pain (7 - 10). 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 180 tablet 302/516778/6Active apixaban (Eliquis) 5 mg tablet Indications:nursing home current use of anticoagulant therapy,Paroxysmal atrial fibrillation (Multi)Take 1 tablet (5 mg) by mouth 2 times a day for 7 days. 14 tablet 5Active apixaban (Eliquis) 5 mg tablet Indications:Paroxysmal atrial fibrillation (Multi)Take 1 tablet (5 mg) by mouth 2 times a day. 180 tablet 303//[id number]/6Active Active Problems ProblemNoted DateDiagnosed DateNever smoked acmvjrv4504/01/2024History of percutaneous coronary vgzplpeehikd90/13/2024aroxysmal atrial fibrillation 08/19/2023 Assessment & Plan (10/07/2023 1:50 PM EDT): Initially identification June 2023 hospitalization at [facility] in setting of UTI and hypomagnesia. Converted on Cardizem drip. EKG in office today maintaining normal sinus rhythm August 2023 follow-up Holter normal sinus rhythm, no atrial fibrillation. Assessment & Plan (08/19/2023 3:38 PM EDT): Initially identification June 2023 hospitalization at [facility] in setting of UTI and hypomagnesia. Converted on Cardizem drip. EKG in office today maintaining normal sinus rhythm nursing home current use of anticoagulant qgpvadv3508/19/2023 Assessment & Plan (10/07/2023 1:50 PM EDT): CHADS VASc 4 currently on full dose Eliquis age 72, weight 236 pounds. Denies bleeding diatheses Denies history of frequent falls Patient assistance form has been submitted and the daughter reports they are pending as of 4 days ago Assessment & Plan (08/19/2023 3:39 PM EDT): CHADS VASc 4 currently on full dose Eliquis age 72, weight 236 pounds. Denies bleeding diatheses Denies history of frequent falls May be cost prohibitive, provided with patient assistance forms and samples. BMI 34.0-34.9,adult08/19/2023 Assessment & Plan (10/07/2023 1:50 PM EDT): Reviewed the merits of healthy lifestyle choices on overall cardiovascular health. Assessment & Plan (08/19/2023 3:39 PM EDT): Reviewed the merits of healthy lifestyle choices on overall cardiovascular health. Cardiomyopathy, rxqmgyjc15/01/2024 Assessment & Plan (08/19/2023 3:38 PM EDT): February 2022 cardiac cath LVEF 45 to 50% with hypokinesis of the entire left lateral wall. ASHD (arteriosclerotic heart disease)02/18/2023 Assessment & Plan (08/19/2023 3:36 PM EDT): Mar 13, [address] Dickson Cronin3 PCI/[place] 2.75 x 18 mm Mid LAD 30 to 40% Circumflex negative RCA negative Current daily activity less than 4 METS Prior angina symptom was stomach ache , denies any recurrence. History of myocardial svoccxggwd82/01/8320Kgjkohdwhgimfi58/01/2023 Assessment & Plan (08/19/2023 3:37 PM EDT): Tolerating high intensity statin Reports wellness labs through PCP Doaeftzvemnz35/01/2023 Assessment & Plan (08/19/2023 3:37 PM EDT): Optimal in office Status post insertion of drug eluting coronary artery stent02/18/2023lass 2 obesity with body mass index (BMI) of 36.0 to 36.9 in adult02/18/2023SOB (shortness of breath) on fskloxax17/01/2023 Family History Medical HistoryRelationNameCommentsacute myelomonocytic leukemia in relapse FatherAtrial fibrillationMothercerebrovascular accident (cva)MotherRelationName StatusCommentsFatherMother Social History Tobacco UseTypesPacks/DayYears UsedDateSmoking Tobacco: NeverSmokeless Tobacco: Never Tobacco Cessation:Counseling Given: Not Answered Alcohol UseStandard Drinks/WeekCommentsNot Currently0 (1 standard drink = 0.6 oz pure alcohol)wine at holidaysCommentsUnknownSex and Gender Information ValueDate RecordedSex Assigned at BirthNot on fileLegal YxbElzgvo29/28/2022 9:55 PM ESTGender IdentityNot on fileSexual OrientationNot on file Last Filed Vital Signs Vital SignReadingTime TakenCommentsBlood Gdlqdzcn862/7204/01/2024 10:51 AM EST Cuorc087604/01/2024 10:51 AM ESTTemperature--Respiratory Rate--Oxygen Saturation-- Inhaled Oxygen Concentration--Jkuxik424 kg (244 lb 3.2 oz)04/01/2024 10:51 AM LSWRmtgoe708.3 cm (5' 9 )04/01/2024 10:51 AM ESTBody Mass Index36.0604/01/2024 10:51 AM EST Plan of Treatment DateTypeDepartmentCare Team (Latest Contact Info)Eafapubxgzt48/30/2025 2:00 PM ESTOffice Visit [facility] [facility] [address] [place] [address] Gama Canales DO 7[address] [facility] [address] [place] [address] Health MaintenanceDue DateLast DoneCommentsMedicare Annual Wellness Visit (AWV) 1950Hepatitis C Yndpepill51/03/1967CKD: Urine Protein Imgprvrwh15/03/1968 Zoster Vaccines (1 of 2)1998DTaP/Tdap/Td Vaccines (1 - Tdap)05/12/2011 05/11/2011one Density Scan2013Pneumococcal Vaccine (2 of 2 - PCV) , 05/11/2010RSV High Risk: (Elderly (60+) or Population) (1 - 1-dose 75+ series)4Diabetes Nemxyaekb12/23/2024 12/10/2022, 12/10/2022Influenza Vaccine (#1)/05/2023, 04/01/2022, 03/19/2021, Additional history existsCOVID-19 Vaccine ( season) /05/2023, 04/01/2022, 03/19/2021, Additional history existsLipid Panel/4952FjgcgedqspdGjeohwoqaejc24/16/2013MammogramDiscontinued 03/24/2023, 3Colorectal Cancer ScreeningDiscontinuedFIT-DNA (Cologuard) Ncsrhsgycxwc08/30/2024CT ColonographyDiscontinuedFITDiscontinuedHIB VaccinesAged OutNo longer eligible based on patient's age to complete this topicHPV Vaccines Aged OutNo longer eligible based on patient's age to complete this topic Hepatitis A VaccinesAged OutNo longer eligible based on patient's age to complete this topicHepatitis B VaccinesAged OutNo longer eligible based on patient's age to complete this topicIPV VaccinesAged OutNo longer eligible based on patient's age to complete this topicMeningococcal VaccineAged OutNo longer eligible based on patient's age to complete this topicRotavirus VaccinesAged Out No longer eligible based on patient's age to complete this topicSigmoidoscopy Discontinued Insurance Care Teams Team MemberRelationshipSpecialtyStart DateEnd Xavier Wyatt MD [address] [place] [address] [facility] - Jkmvjgc33/25/22
--- OUTSIDE RECORDS SUMMARY | 2025-02-26 09:13 | XMS_ITS | Clinical Summary ---
Author Organization [facility] Address [address] [place] [id number] Care Team Providers Care Roster Clerk Name Role Phone Unavailable Primary Care Provider Unavailabl e Allergies Active AllergyReactionsCriticalityNoted DateCommentsErythromycinAnaphylaxis 11/02/20209203YxhpemvmzzfVlveuwoykwa99/16/2021 Medications MedicationSigDispense QuantityRefillsLast FilledStart DateEnd DateStatus celecoxib (CELEBREX) 200 mg capsule Take 200 mg by mouth twice daily.Active gabapentin (NEURONTIN) 600 mg tablet Take 600 mg by mouth once daily.Active losartan (COZAAR) 100 mg tablet Take 100 mg by mouth once daily.Active sertraline (ZOLOFT) 100 mg tablet Take 100 mg by mouth once daily.Active oxybutynin XL (DITROPAN XL) 5 mg 24 hr tablet Take 5 mg by mouth once daily.Active simvastatin (ZOCOR) 10 mg tablet Take 10 mg by mouth daily at bedtime.Active aspirin 81 mg chewable tablet Take 81 mg by mouth once daily.Active Social History Tobacco UseTypesPacks/DayYears UsedDateSmoking Tobacco: Never AssessedArea Deprivation IndexAnswerDate RecordedNational Score (1-100), lower number is lower riskNot on file11/02/2020tate Score (1-10), lower number is lower riskNot on file11/02/2020ata from: https://www.neighborhoodatlas.medicine.[facility].edu/. Last address used for calculationNot on file11/02/2020CommentsUnknownSex and Gender InformationValueDate RecordedSex Assigned at BirthNot on fileLegal RdxCjpybs31/02/2021 10:29 AM EDTGender IdentityNot on fileSexual OrientationNot on file Last Filed Vital Signs Vital SignReadingTime TakenCommentsBlood Pressure--Pulse--Temperature-- Respiratory Rate--Oxygen Saturation--Inhaled Oxygen Concentration--Qlbfkt513.1 kg (256 lb)11/02/2020 1:17 PM MIDCfkokg778.3 cm (5' 9 )11/02/2020 1:17 PM EDT Body Mass Index37.807 1:17 PM EDT Plan of Treatment Health MaintenanceDue DateLast DoneCommentsAnxiety Pbyngmocr36/03/1967Depression Qybtfugsp06/03/1967Hepatitis C Cmbadkfrx46/03/1967DTaP,Tdap,Td Vaccine (1 - Tdap)10/21/1967Diabetes Jjrrstsao01/03/1994Pneumococcal Vaccine: 50+ (1 of 1 - PCV)1998Shingrix Vaccine (1 of 2)1998Bone Density Screening 2013RSV Vaccine (1 - 1-dose 75+ series)10/21/2023dvance Directive Nzgeawllfd07/01/2025ovid-19 Vaccine ( - 2024- season)2024Influenza Vaccine (#1)[address] [place] [address]
--- OUTSIDE RECORDS SUMMARY | 2025-02-26 09:13 | XMS_ITS | CCD ---
Author Organization [facility] Care Team Providers Care Squad Leader Name Role Phone MD Dario Forman Admit Provider MD Dario Forman Attending Provider MD Xavier Robbins Primary Care Provider [phone] DR XAVIER ROBBINS Primary Care Unavailable FABIANA BECKER Admitting Unavailable FABIANA BECKER Attending Unavailable CHLOÉ DARBY Consulting Unavailable FABIANA BECKER Consulting Unavailable PROVIDER, UNKNOWN Attending Unavailable PROVIDER, UNKNOWN Admitting Unavailable Xavier Robbins Unavailable Unavailable Unavailable Dr. Xavier Robbins Primary Care Unava ilmaynor Robbins, Dr. Xavier Lim Primary Care Unava ilable Gama Canales Attending Unavailable Gama Canales Referring Unavailable Itzel, Dr. Xavier Lim Primary Care Unava ilGama Marrero Attending Unavailable Gama Canales Referring Unavailable Itzel, Dr. Xavier Lim Primary Care Unava ilable Janette Hernandez Unavailable Xavier Robbins MD Primary Care Provider GUS MALIK Referring Unavailable XAVIER ROBBINS Primary Care Unavailab Xavier Leslie MD Unavailable Xavier Robbins MD Primary Care Provider Alberto Canales MD Unavailable Shonna SAAVEDRA, Dilia Unavailable Xavier Robbins MD Primary Care Provider Xavier Robbins MD Unavailable [phone] Xavier Robbins MD Primary Care Provider Xavier Robbins MD Primary Care Provider [phone] GUS MALIK Attending Unavailable XAVIER ROBBINS Primary Care Unavailable GUS MALIK Referring Unavailable XAVIER ROBBINS Primary Care Unavailable GUS MALIK Attending Unavailable XAVIER ROBBINS Primary Care Unavailable GAMA CANALES Attending Unavailable GAMA CANALES Referring Unavailable XAVIER ROBBINS Primary Care Unavailable Alberto Canales MD Unavailable [phone] Xavier Robbins MD Primary Care Provider [phone] Xavier Robbins MD Primary Care Provider Skip Garcia MD Attending Provider Skip Garcia II Attending Unavailabl e Jose THAYER, Skip Way Admitting Unavailabl e Xavier Robbins Primary Care Unavailable Skip Garcia II Attending Unavailabl e Jose THAYER, Skip Way Admitting Unavailabl e Xavier Robbins Primary Care Unavailable Xavier Robbins MD Unavailable [phone] XAVIER ROBBINS Attending Unavailable HEMEXAVIER ROSSI Attending Unavailable HEMEXAVIER ROSSI Attending Unavailable HEMEXAVIER ROSSI Attending Unavailable XAVIER ROBBINS Attending Unavailable XAVIER ROBBINS Referring Unavailable XAVIER ROBBINS Attending Unavailable ANTONIA HULL Attending Unavailable ANTONIA HULL Referring Unavailable XAVIER ROBBINS Attending Unavailable HEMEFELTON, XAVIER Spaulding Attending Unavailable HEMEFELTON, XAVIER Spaulding Attending Unavailable HEMEFELTON, XAVIER Spaulding Attending Unavailable XAVIER ROBBINS Attending Unavailable Xavier Robbins MD Unavailable [phone] Xavier Robbins MD Primary Care Provider Alberto Canales MD Unavailable [phone] Shonna SAAVEDRA, Dilia Unavailable [phone] Skip Garcia MD Unavailable Antonia Gutiérrez Unavailable Allergies Allergy ClassificationReported Allergen(s)Allergy TypeDate of OnsetReaction(s) FacilityMacrolides (antibiotic) (2 sources)Azithromycin; Translations: [AZITHROMYCIN]Drug Rimqnel63-23-7649[facility] (1 source)nickel; Translations: [NICKEL]Drug Shiupuj29-62-1951[facility] (6 sources)Neomycin; Translations: [Neomycin]Drug Nqhtbth67-12-2901Wkijxzs ReactionSouthview Medical Center (20 sources)nickel; Translations: [Nickel]Drug Lepglib99-13-8543croa, [facility] (20 sources)erythromycin base; Translations: [Erythromycin Base]Allergy to hravzvxfx30-15-1274Tgfsvfc Reaction, Unknown Reaction, hivesSouthview Medical Center (20 sources)Azithromycin; Translations: [Azithromycin TABS]Drug Allergy 89-76-8564DcparouuZpcfpfajugOhioHealth [facility]in [facility] (4 sources)Erythromycin; Translations: [ERYTHROMYCIN]Drug Ycpejyc20-29-2641siottPremier Health At[facility] (20 sources)Hyfyp-Ofzhe-Xlgintz-PramoxineDrug egdixbn69-10-0429ptcr,[facility] Other (20 sources)Mold ExtractDrug Muilfws26-78-2354[facility] (1 source)Azithromycin; Translations: [AZITHROMYCIN]Drug Cbybabd96-92-5454[facility] Repository Medications Current Medications MedicationDrug Class(es)DatesSig (Normalized)Sig (Original)albuterol 0.83 mg/ml inhalation solution (20 sources)beta2-Adrenergic Agonistalbuterol (2.5 MG/3ML) 0.083% nebulizer solution Take 2.5 mg by nebulization every 6 (six) hours ifneeded. Active albuterol HFA 90 mcg/act inhaler Inhale 2 puffs in the morning and 2 puffs at noon and 2 puffs in the evening and 2 puffs before bedtime. Activetake 1 puff(s) by inhalation every four hoursalbuterol 90 mcg/actuation inhaler Inhale 1 puff every 4 hours if needed. Activetake 3 mL by inhalation every six hours as needed Albuterol Sulfate 0.63 MG/3ML 3 ml as needed Inhalation every 6 hrs uses PRN, J41.0 Not-TakingAlbuterol Sulfate HFA 108 (90 Base) MCG/ACT 2 puffs as needed Inhalation 4 x day prn Not-Takingapixaban 5 mg oral tablet (20 sources)Factor Xa InhibitorStart: 07-13-2023 End: 66-42-6674bzpd 1 tablet by mouth in the morningEliquis 5 MG tablet Take 5 mg by mouth in the morning and 5 mg before bedtime. 07/13/2023 Activeascorbic acid 500 mg oral capsule (20 sources)Vitamin Ctake 1 capsule by mouth in the morningAscorbic Acid (Vitamin C) 500 MG capsule Take 1 capsule by mouth in the morning. Activetake 1 tablet by mouth once dailyascorbic acid (Vitamin C) 500 mg tablet Take 1 tablet (500 mg) by mouth once daily. ActiveAspir-81 (1 source)Aspir-81 *please review for potential _update for e-prescription and drug interaction check* 1 every other day Activeaspirin 81 mg oral tablet (20 sources)Platelet Aggregation Inhibitor, Nonsteroidal Anti-inflammatory Drug Start: 15-84-8885hwbp 1 tablet by mouth once dailyAspirin 81 mg tablet Active 81 MG PO Daily November 24, 2024 12:00am Complies with drug therapyStart: 20-49-8901domm 1 tablet by mouth two times weeklyaspirin 81 mg chewable tablet Indications: ASHD (arteriosclerotic heart disease) Take one tablet bymouth twice a week 30 08/19/2023 ActiveStart: 03-14-2022 End: 77-94-4487iafb 1 tablet by mouth once dailyAspirin (Children's Aspirin) 81 mg Tablet,Chewable Active 81 MG PO Daily March 14, 2022 1:00am Complies with drug therapy End: 21-46-4630fsup 1 tablet by mouth two times weeklyaspirin 81 MG EC tablet Take 81 mg by mouth 2 (two) times a week Active End: 61-35-8778honp 1 tablet by mouth once dailyaspirin 81 mg EC tablet Take 1 tablet (81 mg) by mouth once daily. 08/19/2023 Discontinued (Dose adjustment) atorvastatin 80 mg oral tablet (20 sources)HMG-CoA Reductase InhibitorStart: 03-14-2022 End: 97-22-8765ypys 1 tablet by mouth once daily in the eveningAtorvastatin 80 mg Tablet Active 80 MG PO Every evening March 14, 2022 1:00am Complies withdrug therapycefuroxime 250 mg oral tablet (2 sources)Cephalosporin AntibacterialStart: 01-10-2025 End: 06-24-7899olfk 1 tablet by mouth in the morningcefuroxime (Ceftin) 250 MG tablet Indications: Acute cystitis without hematuria Take 1 tablet (250 mg) by mouth in the morning and 1 tablet (250 mg) before bedtime. Do all this for 5 days. 10 tablet 01/10/2025 01/15/2025 Activecelecoxib 100 mg oral capsule (20 sources)Nonsteroidal Anti-inflammatory Drug End: 78-25-7063dqkkhsven (CeleBREX) 100 MG capsule Take 50 mg by mouth in the morning and 50 mg in the evening. Active End: 35-47-8111rmsyjbxlq (CeleBREX) 200 mg capsule Take by mouth twice a day. With food 10/06/2023 Discontinued (Therapy completed)take 1 capsule by mouth every twenty-four hoursCelecoxib 200 MG 1 capsule with food Orally Once a day Activediclofenac sodium 25 mg delayed release oral tablet (1 source)Nonsteroidal Anti-inflammatory Drugdiclofenac (Voltaren) 25 mg EC tablet Take 1 tablet (25 mg) by mouth if needed (joint pain). Do notcrush, chew, or split. Activegabapentin 600 mg oral tablet (20 sources)Anti-epileptic AgentStart: 03-13-2022 End: 24-64-8511gtwn 1 tablet by mouth at bedtimeGabapentin 600 mg tablet Active 600 MG PO Bedtime March 13, 2022 1:00am Complies with drug therapylosartan potassium 100 mg oral tablet (20 sources)Angiotensin 2 Receptor BlockerStart: 08-06-2017 End: 08-02-3911htuf 1 tablet by mouth once dailyLosartan 100 mg tablet Active 100 MG PO Daily March 13, 2022 1:00am Complies with drug therapyMagnesium Oxide (20 sources)take 1 tablet by mouth once dailymagnesium oxide (Mag-Ox) 400 mg tablet Take 1 tablet (400 mg) by mouth once daily. Activemagnesium oxide (Mag- Ox) 400 mg tablet 400 mg in the morning and 400 mg before bedtime. Active1 ml methylPREDNISolone acetate 80 mg/ml injection (8 sources)CorticosteroidStart: 08-23-2024 End: 54-45-4876nxhyemYVSIPNNddijl acetate (DEPO-Medrol) injection 80 mgStart: 08-23-2024 End: 25-96-1857rgptppTXKCMYCxcaju acetate (DEPO-Medrol) injection 80 mgStart: 08-23-2024 End: 30-83-2209nhmctyPTDMOSMqmiqb acetate (DEPO-Medrol) injection 80 mgStart: 08-23-2024 End: 70-39-6608ofvxujSMJJJMAnehkt acetate (DEPO-Medrol) injection 80 mgStart: 08-23-2024 End: 34-79-655306 mg, Intra-articular, Once, On Thu08/23/24 at 1415, For 1 dose Start: 08-23-2024 End: 09-48-466754 mg, Intra-articular, Once, On Thu08/23/24 at 1415, For 1 dose Start: 08-23-2024 End: 51-66-854685 mg, Intra-articular, Once, On Thu08/23/24 at 1415, For 1 dose Start: 08-23-2024 End: 29-88-737437 mg, Intra-articular, Once, On Thu08/23/24 at 1415, For 1 dose24 hr metoprolol succinate 50 mg extended release oral tablet (20 sources)beta-Adrenergic BlockerStart: 12-09-2023 End: 43-13-2143eixt 0.5 tablet by mouth once dailymetoprolol succinate XL (Toprol-XL) 50 MG 24 hr tablet Indications: Benign essential hypertension Take 0.5 tablets (25 mg) by mouth Daily 45 tablet 1 11/23/2024 05/22/2025 Active Start: 07-13-2023 End: 01-43-5151srlp 1 tablet by mouth once dailymetoprolol succinate XL (Toprol- XL) 50 MG 24 hr tablet Take 25 mg by mouth Daily 07/13/2023 12/09/2023 Discontinued (Reorder)Start: 03-14-2022 End: 92-56-1888qtlk 1 tablet by mouth twice dailyMetoprolol Tartrate 25 mg tablet Active 25 MG PO Twice daily 60 March 14, 2022 1:00am Complieswith drug therapytake 1 tablet by mouth once dailymetoprolol succinate XL (Toprol-XL) 25 mg 24 hr tablet Take 1 tablet (25 mg) by mouth once daily. Do not crush or chew. Active End: 83-76-2186qmcu 1 tablet by mouth once dailymetoprolol succinate XL (Toprol- XL) 50 mg 24 hr tablet Take 1 tablet (50 mg) by mouth once daily. Do not crush or chew. 04/01/2024 Discontinued (Dose adjustment)take 1 capsule by mouth once dailyMetoprolol Succinate 25 MG 1 capsule Orally Once a day Activemontelukast 10 mg oral tablet (20 sources)Leukotriene Receptor AntagonistStart: 03-13-2022 End: 74-60-4293cfsd 1 tablet by mouth once dailyMontelukast 10 mg tablet Active 10 MG PO Daily March 13, 2022 1:00am Complies with drug therapyMultiple Vitamins-Minerals (Multivitamin Women 50+) tablet (20 sources)take 1 tablet by mouth in the morningMultiple Vitamins-Minerals (Multivitamin Women 50+) tablet Take 1 tablet by mouth in the morning. Active multivitamin tablet (5 sources)take 1 tablet by mouth once dailymultivitamin tablet Take 1 tablet by mouth once daily. Activetake 1 tablet by mouth once dailymultivitamin tablet Take 1 tablet by mouth once daily. 0 ActiveMultivitamin Women 50+ - (1 source)Multivitamin Women 50+ - Orally Activemupirocin 0.02 mg/mg topical ointment (1 source)RNA Synthetase Inhibitor AntibacterialStart: 32-30-0433Hhromrusa 2 % 1 application Externally Three times a day for 7 days Dec, Active nitroglycerin 0.4 mg sublingual tablet (20 sources)Nitrate VasodilatorStart: 02-26-3728Nlourdzhuzgaq 0.4 mg Tablet, Sublingual Active 0.4 MG SUBLINGUAL Q5M as needed for Chest Pain March 14, 2022 1:00am Complies with drug therapyNitroglycerin 0.4 MG as directed Sublingual Activeomeprazole 20 mg delayed release oral tablet (20 sources)Proton Pump Inhibitortake 1 tablet by mouth before mealtime omeprazole OTC (PriLOSEC OTC) 20 MG EC tablet Take 20 mg by mouth in the morning. Take before meals. Do not crush, chew, or split. . Activetake 1 capsule by mouth once daily before mealtimeomeprazole (PriLOSEC) [address] capsule Take 1 capsule (40 mg) by mouth once daily in the morning. Take before meals. Active oxybutynin chloride 5 mg oral tablet (20 sources)Cholinergic Muscarinic AntagonistStart: 03-13-2022 End: 82-76-7388cfsu 1 tablet by mouth twice dailyOxybutynin Chloride 5 mg tablet Active 5 MG PO Twice daily March 13, 2022 1:00am Complies withdrug therapy sulfamethoxazole 800 mg / trimethoprim 160 mg oral tablet (3 sources)Dihydrofolate Reductase Inhibitor Antibacterial, Sulfonamide AntimicrobialStart: 10-27-2024 End: 60-01-3077llnk 1 tablet by mouth once in the morning, then take 1 tablet by mouth once at bedtimesulfamethoxazole-trimethoprim (Bactrim DS) 800-160 MG per tablet Indications: Cellulitis of left upper extremity Take 1 tablet by mouth in the morning and 1 tablet before bedtime. Do all this for 7 days. 14 tablet 10/27/2024 11/03/2024 Activeticagrelor 90 mg oral tablet (11 sources)Start: 03-14-2022 End: 62-33-3055gpiq 1 tablet by mouth twice dailyTicagrelor (Brilinta) 90 mg Tablet Active 90 MG PO Twice daily 60 30 March 14, 2022 1:00am Complies with drug therapytraMADol hydrochloride 50 mg oral tablet (4 sources)Opioid AgonistStart: 09-16-2023 End: 65-19-4025lkes 1 tablet by mouth every eight hours for paintraMADol (Ultram) 50 MG tablet Indications: Chronic pain syndrome Take 1 tablet (50 mg) by mouth every 8 (eight) hours if needed for severe pain 45 tablet 2 09/16/2023 12/15/2023 Activetake 1 tablet by mouth every six hours as neededtraMADol (Ultram) 50 mg tablet Take 1 tablet (50 mg) by mouth every 6 hours if needed for severe pain (7 - 10). ActiveVitamin C 500 MG (1 source)take 1 tablet by mouth once dailyVitamin C 500 MG 1 tablet Orally Once a day Active Completed/Discontinued Medications MedicationDrug Class(es)DatesSig (Normalized)Sig (Original)amoxicillin 500 mg oral capsule (1 source)Penicillin-class AntibacterialStart: 81-61-4274Zlvjgcoagcx 500 MG 4 capsules one time, take 45 min-1 hr prior to planned dental procedure Orally On ce a day for 1 day(s) Feb, Not-Takingcalcium carbonate 1250 mg oral tablet (2 sources) End: 71-18-2472tfzc 1 tablet by mouth once dailycalcium carbonate (Oscal) 500 mg calcium (1,250 mg) tablet Take 1 tablet (1,250 mg) by mouth once daily. 08/19/2023 Discontinued (Therapy completed)24 hr dilTIAZem hydrochloride 300 mg extended release oral capsule (3 sources)Calcium Channel BlockerStart: 07-13-2023 End: 12-45-8274ythx 1 capsule by mouth once daily, then take 1 capsule by mouth every twenty-four hoursdilTIAZem CD (Cardizem CD) 300 MG 24 hr capsule Take 300 mg by mouth Daily 07/13/2023 12/09/2023 Discontinued (Therapy completed)docusate sodium 100 mg oral capsule (1 source)take 1 capsule by mouth once daily at bedtime as neededColace 100 MG take 1 capsule by oral route every day at bedtime as needed Orally Not-Taking ferrous sulfate 325 mg oral tablet (1 source)take 1 tablet by mouth every twenty-four hoursFeosol 200 (65 Fe) MG 1 tablet Orally daily Not-TakingHandicap Placard 1 year 1 year (1 source)Start: 09-02-1407Gjnyhhfh Placard 1 year 1 year 1 misc daily for 1 year *please review for potential _update for e-prescription and drug interaction check* M54.5 Low Back Pain Dec, Not-TakingHandicap Placard 5 year 5 year (1 source)Start: 32-95-8605Pyuovobl Placard 5 year 5 year 1 misc daily for 5 year *please review for potential _update for e-prescription and drug interaction check* Sep, Not-TakingHandicap Plaquard 1 (1 source)Start: 02-08-3997Dqsdxsrw Plaquard 1 use 1 placard as directed for 6 months for 180 days *please review for potential _update for e-prescription and drug interaction check* Feb, Not-Takingipratropium bromide 0.2 mg/ml inhalation solution (1 source)AnticholinergicStart: 44-31-5521hwpw 2.5 mL by inhalation every eight hours as neededIpratropium [place] 0.02 % 2.5 ml Inhalation every 8 hrs as needed using [facility], Rx Bin [id number], [id number] Membber ID [id number] Mar, Not-Takingmeloxicam 15 mg oral tablet (1 source)Nonsteroidal Anti-inflammatory Drugtake 1 tablet by mouth every twenty-four hoursMeloxicam 15 MG 1 tablet Orally Once a day for 90 days Not-TakingNiacin (1 source)Nicotinic AcidStart: 83-68-6724Eiljmf SR 500 mg as directed daily *please review for potential _update for e-prescription and druginteraction check* 3 daily Jan, Not-Takingsertraline 100 mg oral tablet (20 sources)Serotonin Reuptake InhibitorStart: 04-28-2024 End: 04-01-8572jdrg 1 tablet by mouth once dailysertraline (Zoloft) 100 MG tablet Indications: Recurrent major depressive disorder, in partial remission Take 1 tablet (100 mg) by mouth Daily 90 tablet 1 07/12/2024 01/10/2025 Discontinued (Reorder)Start: 09-16-2023 End: 15-14-0242emaw 1 tablet by mouth once dailysertraline (Zoloft) 100 MG tablet Indications: Recurrent major depressive disorder, in partial remission (HCC) (CMS/HCC) Take 1 tablet (100 mg) by mouth Daily 90 tablet 1 09/16/2023 Active Problems Active Problems Problem ClassificationProblemDateDocumented DateEpisodic/ChronicAsthma (20 sources)Unspecified asthma, uncomplicated; Translations: [Mild intermittent asthma]Onset: 745722-71-7361GijsgqzQosfkih dysrhythmias (20 sources)Paroxysmal atrial fibrillation; Translations: [Paroxysmal atrial fibrillation]Onset: 459234-44-8552EnwdojcBsusbht kidney disease (20 sources)Chronic kidney disease stage 2; Translations: [Chronic kidney disease, stage 2 (mild)]Onset: 434957-24-2215PlxafdfXfnsxsj obstructive pulmonary disease and bronchiectasis (20 sources)Simple chronic bronchitis; Translations: [Simple chronic bronchitis] Onset: 282999-90-4418AwyapseBgyeibtn atherosclerosis and other heart disease (20 sources)Coronary arteriosclerosis; Translations: [Coronary atherosclerosis of unspecified type of vessel, platinum or graft]Onset: 10-07-2022 Resolved: 657031-49-0858SkbeappXccjtquzv of lipid metabolism (20 sources)Hyperlipidemia; Translations: [Other and unspecified hyperlipidemia] Onset: 271323-01-9029WiebggeN Codes: Natural/environment (1 source)Bitten or stung by nonvenomous insect and other nonvenomous arthropods, initial encounterEpisodicEssential hypertension (20 sources)Hypertensive disorder; Translations: [Essential (primary) hypertension]Onset: 987468-64-3887UktyqjaBgtlvzf on above:Problem List clean-up per request of Phys. EHR CmteGenitourinary symptoms and ill-defined conditions (20 sources)Urge incontinence of urine; Translations: [Urge incontinence]Onset: 654956-77-8364BsgrwtjRoulyqjdbiiz with complications and secondary hypertension (20 sources)Hypertensive renal disease; Translations: [Hypertensive chronic kidney disease with stage 1 throughstage 4 chronic kidney disease, or unspecified chronic kidney disease]Onset: 212242-59-3709CzfptxmMqfy disorders (20 sources)Recurrent major depression in partial remission; Translations: [Major depressive disorder, recurrent, in partial remission]Onset: 10-07-2022 39-74-9040EltddyzPsnyyskqu of unspecified nature or uncertain behavior (1 source)Neoplastic disease of uncertain behavior; Translations: [Neoplasm of uncertain behavior, unspecified]32-65-5929BnlqpnesYviwnnjcizj chest pain (3 sources)Chest pain, unspecified; Translations: [CHEST PAIN UNSPECIFIED]Onset: 20-80-2483PgiqgaopTppwmjqcrvqhil (20 sources)Inflammation of joints of bilateral shoulder regions; Translations: [Primary osteoarthritis, right shoulder]Onset: 350497-81-8982RkiunntAfbik aftercare (1 source)MCFP (current) use of aspirin; Translations: [[employer] CURRENT USE OF ASPIRIN]Onset: 96-48-9828HdpxmdiyDexrf aftercare (1 source)Other alf (current) drug therapy; Translations: [[facility] CURRENT DRUG THERAPY]Onset: 67-24-1659GtjpodqqQavfx aftercare (2 sources)Removal of sutures done; Translations: [Encounter for removal of sutures]47-24-7078WdiecyaaBcvjz connective tissue disease (20 sources)History of repair of hip joint; Translations: [Presence of right artificial hip joint]Onset: 367101-83-5715MxsyfrqZyjha connective tissue disease (10 sources)History of total replacement of right hip joint; Translations: [Presence of right artificial hip joint]05-44-8873XtbavbeXjwdq connective tissue disease (1 source)Presence of right artificial hip joint; Translations: [Presence of right artificial hip joint]Onset: 63-91-5494JxbjwumOlzms hereditary and degenerative nervous system conditions (20 sources)Restless legs; Translations: [Restless legs syndrome]Onset: 784926-00-0368QkxqpvePtvvx lower respiratory disease (7 sources)Dyspnea on exertion; Translations: [Shortness of breath]Onset: 745873-61-4185QoovsnnrJuoqb lower respiratory disease (2 sources)Shortness of breath; Translations: [Shortness of breath]Onset: 94-08-9860KmyvmujiEoicg nervous system disorders (20 sources)Difficulty walking; Translations: [Difficulty in walking, not elsewhere classified]Onset: 255966-92-1406SmsikjtAzdhc nervous system disorders (20 sources)Chronic pain syndrome; Translations: [Chronic pain syndrome]Onset: 384922-32-3337GpslksaZwxgy nervous system disorders (1 source)Other chronic pain; Translations: [Other chronic pain]Onset: 27-90-5136TelgtinAugoh non-traumatic joint disorders (1 source)Chronic pain of right upper limb; Translations: [Pain in right shoulder]EpisodicOther non-traumatic joint disorders (6 sources)Hip pain; Translations: [Pain in right hip]50-18-6926SwqjwzlpJdewy non-traumatic joint disorders (8 sources)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; Translations: [Pain in right hip]02-08-1813VijdgecsSegfn non-traumatic joint disorders (1 source)Pain in right hip; Translations: [Pain in right hip]Onset: 12-22-2024 EpisodicOther nutritional; endocrine; and metabolic disorders (8 sources)Obesity; Translations: [Obesity, unspecified]Onset: 02-18-2023 20-08-0451AxudkzaXgqtx nutritional; endocrine; and metabolic disorders (20 sources)Morbid obesity; Translations: [Morbid (severe) obesity due to excess calories]Onset: 845984-51-1945WmmvyjeRgrmx nutritional; endocrine; and metabolic disorders (2 sources)Obesity caused by energy imbalance; Translations: [Other obesity due to excess calories]36-45-1183BfiocyaKfcwx nutritional; endocrine; and metabolic disorders (8 sources)Body mass index 30+ - obesity; Translations: [Body mass index (BMI) 34.0-34.9, adult]Onset: 977208-86-7890XbeahpvPofne nutritional; endocrine; and metabolic disorders (2 sources)Body mass index (BMI) 36.0-36.9, adult; Translations: [Body mass index (BMI) 36.0-36.9, adult]Onset: 63-67-7636LjkiymjQogeh nutritional; endocrine; and metabolic disorders (2 sources)Other obesity due to excess calories; Translations: [Other obesity due to excess calories]Onset: 81-44-4625DyirxpkNzeln nutritional; endocrine; and metabolic disorders (2 sources)Body mass index (BMI) 34.0-34.9, adult; Translations: [Body mass index (BMI) 34.0-34.9, adult]Onset: 64-05-2892QbduuxvBgemh screening for suspected conditions (not mental disorders or infectious disease) (4 sources)Patient encounter status; Translations: [Encounter for screening for other disorder]48-73-3071WqyrursbQymhc skin disorders (1 source)Changing shape of pigmented skin lesion; Translations: [Disorder of pigmentation, unspecified]88-06-4593BwztvgxzMlllv upper respiratory disease (20 sources)Allergic rhinitis due to pollen; Translations: [Allergic rhinitis due to pollen]Onset: 829830-03-4986OyycjgtKbztjbhex (20 sources)Left hemiparesis; Translations: [Hemiplegia, unspecified affecting left nondominant side]Onset: 988143-68-8800InbsnxhQretsdqk codes; unclassified (20 sources)Walking aid use - finding; Translations: [Dependence on other enabling machines and devices]Onset: 896783-02-2344AgtkopxBojygyel codes; unclassified (1 source)Do not resuscitate; Translations: [DO NOT RESUSCITATE]Onset: 36-09-6685ZlczbyonMxjzokrb codes; unclassified (2 sources)Active advance directive (copy within chart) ; Translations: [Other specified health status]31-51-6896BnyiqzywOtpvrrku codes; unclassified (2 sources)Never smoked tobacco; Translations: [Other specified health status] Onset: 177854-46-3935PkajqzxfCyxcuehl codes; unclassified (2 sources)Other specified health status; Translations: [Other specified health status]Onset: 02-04-6925PwmyuhmyXete and subcutaneous tissue infections (3 sources)Cellulitis of left upper limb; Translations: [Cellulitis of left upper limb]57-11-1732StqanwwzXlkdhtfogog; intervertebral disc disorders; other back problems (20 sources)Disorder of lumbar disc; Translations: [Other intervertebral disc displacement, lumbar region]Onset: 974938-21-1194HfjgihkCcqcnymrlgl injury; contusion (2 sources)Contusion of hip; Translations: [Contusion of right hip, initial encounter]42-11-0522DxzgweauMxnzlnhovbfm (1 source)Obesity, class 2; Translations: [Obesity, class 2]Onset: 02-18-2023 Unclassified (20 sources)Patient on antidepressant monitoring planOnset: Urinary tract infections (2 sources)Acute cystitis; Translations: [Acute cystitis without hematuria] 09-68-5980Hmxgeyfg Past or Other Problems Problem ClassificationProblemDateDocumented DateEpisodic/ChronicAcute myocardial infarction (20 sources)Myocardial infarction; Translations: [ST elevation (STEMI) myocardial infarction involving left circumflex coronary artery]Onset: 03-18-2022 Resolved: 790077-25-1222InoagpjLbozyyl on above:Problem List clean-up per request of Phys. EHR CmteCoronary atherosclerosis and other heart disease (20 sources)Stented coronary artery; Translations: [Presence of coronary angioplasty implant and graft]Onset: 356526-08-3200PnkzdgcpJtyhegx on above:Problem List clean-up per request of Phys. EHR CmteGenitourinary symptoms and ill-defined conditions (20 sources)Microalbuminuria; Translations: [Proteinuria, unspecified]Onset: 058374-45-7440DschngwpMykc disorders (20 sources)Mood disordersOnset: 096921-15-1818Afqyq aftercare (20 sources)Long-term current use of anticoagulant; Translations: [terminologist (current) use of anticoagulants]Onset: 270629-04-9737EavzugbbWcjai aftercare (2 sources)MCFP (current) use of anticoagulants; Translations: [terminologist (current) use of anticoagulants]Onset: 94-39-1354WbcnglthSuzbz connective tissue disease (20 sources)Bicipital tendinitis, right shoulder; Translations: [Bicipital tenosynovitis]Onset: 328279-09-7398TzeljwfrOqyjq connective tissue disease (20 sources)Biceps tendinitis; Translations: [Bicipital tendinitis, left shoulder]Onset: 270903-88-8787OuvczymjEiguqfiqacjn (3 sources)Never smoked tobacco; Translations: [Never a smoker]Unclassified (20 sources)Onset: 02-18-2023 Resolved: 040174-67-1367Jqagfacikeoz (1 source)Obesity, class 2; Translations: [Obesity, class 2]Onset: 04-01-2024 Unclassified (2 sources)History of total replacement of right hip -[id number] Results Test NameValueInterpretationReference RangeFacilityCT hip RT wo yaakovon 12-22-2024 CT hip RT wo [facility] [address] [address] [address] Scan Report Signed Patient: Leia Ewing MR#: [id number] : 1950 Acct:[id number] Age/Sex: 74 / F ADM Date: 12/22/24 Loc: CT Room: Type: [facility] Attending Dr: Skip Garcia II, MD Copies to: Skip Garcia MD Ordering Provider: Skip Garcia MD Date of Service: 12/22/24 CT/CT hip RT wo con: Z96.641 - Presence of right artificial hip joint CT right hip without contrast TECHNIQUE: The CT exam was performed using one or more the following dose reduction techniques: Automated exposure control, adjustment of the MA and/or Kv according to patient size, or use of the iterative reconstruction technique. COMPARISON: None HISTORY: Right hip pain. Bilateral hip arthroplasties adequate hardware. No hardware complication. Adequate bony alignment. No acute fracture. No acute bony findings. SI joint degenerative change. Minimal lateral heterotopic bone. Measures 3 cm. No fluid collections or hematoma. CT/CT hip RT wo con IMPRESSION: Uncomplicated right hip arthroplasty. No hardware failure. SI joint degenerative change. Impression dictated by: Teddy Boyd M.D. 12/22/2024 11:53 PM Dictation Location: [place] [address] Transcribed By: [facility] 12/22/24 2353 Dictated By: Teddy Boyd DO 12/22/24 2347 Signed By: 12/22/24 [facility] [id number] [Catalytic activity/Vol]13 U/LNormal6-29Quest DiagnosticsComment on above:Performed By: #### 7600, 822, 823 #### [facility] [address], [address] [place], [place] [address] [employer] Operator: Sandro Cavazos [facility] [id number] [Catalytic activity/Vol]14 U/ZDybfng67-50Qvtha DiagnosticsComment on above:Performed By: #### 7600, 822, 823 #### [facility] [address] Caterpillar Operator: Sandro Cavazos MDLIPID PANEL, [facility] 91-68-5626Qnmrenwumln [Mass/Vol]165 mg/dLNormal<200Quest DiagnosticsComment on above:Order Comment: FASTING:YES FASTING: YESPerformed By: #### 7600, 822, 823 #### [facility] [address], [address] [place] [address] [employer]aterpillar Operator: Sandro GALLOholesterol in HDL [Mass/Vol]66 mg/dLNormal> OR = 50Quest DiagnosticsComment on above:Order Comment: FASTING:YES FASTING: YESPerformed By: #### 7600, 822, 823 #### [facility] [address], [address] [place] [address] Caterpillar Operator: Sandro GALLOholesterol in LDL [Mass/Vol]77 mg/dLNormal Quest DiagnosticsComment on above:Order Comment: FASTING:YES FASTING: YESResult Comment: Reference range: <100 Desirable range <100 mg/dL for primary prevention; <70 mg/dL for patients with CHD or diabetic patients with > or = 2 CHD risk factors. LDL-C is now calculated using the Robert-Manuel calculation, which is a validated novel method providing better accuracy than the Friedewald equation in the estimation of LDL-C. Robert SS et al. ALEC. 2013;310(19): 2711-2653 (http://education.[employer]/faq/QQJ700)Performed By: #### 7600, 822, 823 #### [facility] [address], [address] [place] [address] [employer]pillar Operator: Sandro Conklinstyue.total/Cholesterol in HDL [Mass ratio]2.5 {ratio}Normal<5.0Quest DiagnosticsComment on above:Order Comment: FASTING:YES FASTING: YESPerformed By: #### 7600, 822, 823 #### [facility] [address], [address] [place] [address] [employer] Operator: Sandro DAVIS HDL QJDQWTGCWDM76 mg/dL (calc)Normal<130 Quest DiagnosticsComment on above:Order Comment: FASTING:YES FASTING: YESResult Comment: For patients with diabetes plus 1 major ASCVD risk factor, treating to a non-HDL-C goal of <100 mg/dL (LDL-C of <70 mg/dL) is considered a therapeutic option.Performed By: #### 7600, 822, 823 #### [facility] [address], [address] [place] [address] [employer] Operator: Sandro Cavazos MDTriglyceride [Mass/Vol]132 mg/dLNormal<150 Quest DiagnosticsComment on above:Order Comment: FASTING:YES FASTING: YESPerformed By: #### 7600, 822, 823 #### [facility] [address], [address] [place] [address] [employer] Operator: Sandro Cavazos MDX-ray reportOrdered By: Lalo Guy on 55-78-9730Cmzhp reportMER[facility] [address] [place] [address] XRay Report Signed Patient: Leia Ewing MR#: [id number] : 1950 Acct:[id number] Age/Sex: 74 / F ADM Date: 5 Loc: [facility] Room: Type: [facility] Attending Dr: Skip Garcia II, MD Copies to: Skip Garcia MD~ Ordering Provider: Skip Garcia MD Date of Service: 11/24/24 XR/XR hip RT min 2V(w/wo pelvis)*: Z96.641 - Presenceof right artificialhip joint RIGHT HIP - 2 views: CLINICAL HISTORY: Right-sided pain COMPARISON: None FINDINGS: Bilateral total hip arthroplasties with well aligned osseous components. No periprosthetic lucency is identified. Ltvb-ll-fjqbbcso spurringboth sacroiliac joints. Pelvis otherwise intact. XR/XR hip RT min 2V(w/wo pelvis)* IMPRESSION: NO ACUTE BONY INJURY. BILATERAL TOTAL HIP ARTHROPLASTIES WITH SATISFACTORY ALIGNMENT. Impression dictated by: Lalo Guy M.D. 11/24/2024 9:30 PM Dictation Location: [place] [address] Transcribed By: KAMRAN 08/11/11 2129 Dictated By: Lalo Guy MD 11/24/242128 Signed By: 11/24/242129 [facility] Work Phone: XR hip RT min 2V(w/wo pelvis)*on 81-82-6058YH hip RT min 2V(w/wo pelvis)*[facility] [address] [place] [address] XRay Report Signed Patient: Leia Ewing MR#: [id number] : 1950 Acct:[id number] Age/Sex: 74 / F ADM Date: 11/24/24 Loc: [facility] Room: Type: [facility] Attending Dr: Skip Garcia II, MD Copies to: Skip Garcia MD Ordering Provider: Skip Garcia MD Date of Service: 11/24/24 XR/XR hip RT min 2V(w/wo pelvis)*: Z96.641 - Presence of right artificial hip joint RIGHT HIP - 2 views: CLINICAL HISTORY: Right-sided pain COMPARISON: None FINDINGS: Bilateral total hip arthroplasties with well aligned osseous components. No periprosthetic lucency is identified. Ikjr-vx-dsgwghpy spurring both sacroiliac joints. Pelvis otherwise intact. XR/XR hip RT min 2V(w/wo pelvis)* IMPRESSION: NO ACUTE BONY INJURY. BILATERAL TOTAL HIP ARTHROPLASTIES WITH SATISFACTORY ALIGNMENT. Impression dictated by: Lalo Guy M.D. 11/24/2024 9:30 PM Dictation Location: [place] [address] Transcribed By: [facility] 11/24/242129 Dictated By: Lalo Guy MD 11/24/242128 Signed By: 11/24/242129No[facility] Physician GroupNo Panel Informationon 14-20-6016Nojudbtbq report comments [Interpretation] NarrativeCANCELEDNOMS HealthcareComment on above:Result canceled by the ancillary.TISSUE PATHOLOGYon 11-18-2024 DIAGNOSISNormalQuest DiagnosticsComment on above:Result Comment: KERATOACANTHOMA (MARGINS CLEAR IN EXAMINED PLANE OF SECTIONS)Performed By: #### 3542 #### [facility] [address], [place] [address] Caterpillar Operator: Edenilson Balderas GROSS DESCRIPTIONNormalQuest Diagnostics Comment on above:Result Comment: Received in 10% neutral buffered formalin is an unoriented excision of tissue measuring 25 x 10 x 8 mm. It was inked, sectioned into 9 segments, and submitted into 3 tissue block(s). This gross description meets regulatory standards for positive identification using two patient identifiers. /cat/cjsPerformed By: #### 3542 #### [facility], [facility] [address], [place] [address] [employer]pillar Operator: Edenilson Balderas MICRO DESCRIPTIONNormalQuest Diagnostics Comment on above:Result Comment: The specimen displays a complex verrucous and cystic/crateriform architectural features with squamous epithelium showing focal keratinocyte atypia surrounding a keratin plug. The dermis is fibrotic and inflamed with background solar elastosis. /catPerformed By: #### 3542 #### [facility] [address], [place] [address] Caterpillar Operator: Edenilson Balderas PROCEDUREBIOPSYNormalQuest DiagnosticsComment on above:Performed By: #### 3542 #### [facility], [facility] [address], [place] [address] Caterpillar Operator: Edenilson Balderas SOURCENormalQuest DiagnosticsComment on above: Result Comment: LEFT ARMPerformed By: #### 3542 #### [facility], [facility] [address], [place] [address] [employer]aterpillar Operator: Edenilson Silverologist Cyto stain Nom (Cvx/Vag) [ID]Normal Quest DiagnosticsComment on above:Result Comment: Chloé Culver MD Board Certified in Clinical and Anatomic Pathology (electronic signature) For question regarding this report call [facility]. [phone] Pathologist Release Date/Time: 11/18/2024 06:35PMPerformed By: #### 3542 #### [facility] [place] [facility] [address], [address] [place] [address] [employer]aterpillar Operator: Edenilson Woo examon 11-18-2024 CLINICAL IMPRESSION CANCELEDNOKY HealthcareComment on above:Result canceled by the ancillary. Clinical informationCANCELEDUNIVERSITY OF UTAH HOSPITAL HealthcareComment on above:Result canceled by the ancillary.Pathologist Cyto stain Nom (Cvx/Vag) [ID]NOMS HealthcareComment on above:Chloé Culver MD Board Certified in Clinical and Anatomic Pathology (electronic signature) For question regarding this report call [facility]. [phone] Pathologist Release Date/Time: 11/18/2024 06:35PM Pathology report final diagnosis NarrativeKERATOACANTHOMA (MARGINS CLEAR IN EXAMINED PLANE OF SECTIONS)[facility] HealthcarePathology report gross observation NarrativeUNIVERSITY OF UTAH HOSPITAL HealthcareComment on above:Received in 10% neutral buffered formalin is an unoriented excision of tissue measuring 25 x 10 x 8 mm. It was inked, sectioned into 9 segments, and submitted into 3 tissue block(s). This gross description meets regulatory standards for positive identification using two patient identifiers. /cat/cjs Pathology report microscopic observation Narrative Other stainNOKY Healthcare Comment on above:The specimen displays a complex verrucous and cystic/crateriform architectural features with squamous epithelium showing focal keratinocyte atypia surrounding a keratin plug. The dermis is fibrotic and inflamed with background solar elastosis. /cat Procedure typeBIOPSYNOMS HealthcareReport typeCANCELEDNOKY HealthcareComment on above:Result canceled by the ancillary.Specimen source Nom (Unsp spec)LEFT ARM [facility] HealthcarePerforming Organization Information Site ID: [id number] Name: [facility] Address: [address] [place] [address], [address] [place] [address] Director: Edenilson GarciaMayo Clinic Health System– ArcadiaXR Hip - right 3 Viewson [id number] Result: AP and Lateral Right hip: AP and lateral of right hip showed acceptable position and alignment of right total hip arthroplasty. Sight superior migration. There was no evidence of loosening of the acetabular cup or femoral stem. Suspect Failure of polyliner with comparison to xray from 10/14 and audible squeaking in room. There was no gross evidence of fracture and/or dislocation. Impression: right total hip arthroplasty concern for accelerated wear of line vs poly failure/ fracture [facility] HospitalRad[facility] Study observation (narrative)[facility] Hip - right 3 Viewson [id number]: XR HIP 2 OR 3 VW RIGHT Clinical History: Fall a couple of weeks ago, right hip pain Reference Exam: 09/25/2020 FINDINGS: Bilateral hip arthroplasty installation. No complication. No symphyseal diastases. No pelvic bone abnormality. The SI joints and the sacral arcuate lines are thought to align appropriately. Nonobstructive abdominal bowel gas pattern. Background osteopenia. IMPRESSION: Uncomplicated bilateral hip arthroplasty component installation. Dictated on: 10/17/2024 10:00 AM This report has been electronically signed and approved by the interpreting Radiologist. Ana Castellano MD - 10/17/2024 Exam: XR HIP 2 OR 3 VW RIGHT Clinical History: Fall a couple of weeks ago, right hip pain Reference Exam: 09/25/2020 FINDINGS: Bilateral hip arthroplasty installation. No complication. No symphyseal diastases. No pelvic bone abnormality. The SI joints and the sacral arcuate lines are thought to align appropriately. Nonobstructive abdominal bowel gas pattern. Background osteopenia. IMPRESSION: Uncomplicated bilateral hip arthroplasty component installation. Dictated on: 10/17/2024 10:00 AM This report has been electronically signed and approved by the interpreting Radiologist. [facility] Hip - right 3 ViewsOrdered By: Ana Valladares on [id number] Work Phone: XR HIP 2 OR 3 VW RIGHTon 03-61-6523DS HIP 2 OR 3 VW RIGHTExam: XR HIP 2 OR 3 VW RIGHT Clinical History: Fall a couple of weeks ago, right hip pain Reference Exam: 09/25/2020 FINDINGS: Bilateral hip arthroplasty installation. No complication. No symphyseal diastases. No pelvic bone abnormality. The SI joints and the sacral arcuate lines are thought to align appropriately. Nonobstructive abdominal bowel gas pattern. Background osteopenia. IMPRESSION: Uncomplicated bilateral hip arthroplasty component installation. Dictated on: 10/17/2024 10:00 AM This report has been electronically signed and approved by the interpreting Radiologist.NormalNot AvailableXR Hip - right 3 Viewson [id number] Study observation (narrative)[facility] HealthcareCOMPREHENSIVE METABOLIC PANELon 25-42-4962Iufonud [Mass/Vol]4.2 g/dLNormal3.6-5.1Quest DiagnosticsComment on above:Performed By: #### 7600 #### [facility] [address], [address] [place] [address] Caterpillar Operator: Sandro Cavazos MD #### [id number] #### [facility] [address] [place], [place] [address] Caterpillar Operator: Betsy Coreas FlatiAlbumin/Globulin [Mass ratio]1.6 {ratio}Normal 1.0-2.5Quest DiagnosticsComment on above:Performed By: #### 7600 #### [facility] [address], [address] [place] [address] [employer]pillar Operator: Sandro Cavazos MD #### [id number] #### [facility] [address] [place], [place] [address] Caterpillar Operator: Betsy HeadleyiALP [Catalytic activity/Vol]87 U/XQsgues69-796 [facility] DiagnosticsComment on above:Performed By: #### 7600 #### [facility] [address], [address] [place] [address] [employer] Operator: Sandro Cavazos MD #### [id number] #### [facility] [address] [place] [address] C[employer] Operator: Betsy Coreas FlatiALT [Catalytic activity/Vol]15 U/LNormal6-29 Quest DiagnosticsComment on above:Performed By: #### 7600 #### [facility] [address], [address] [place] [address] C[employer] Operator: Sandro Cavazos MD #### [id number] #### [facility] [address] [place], [place] [address] C[employer]pillar Operator: Betsy HeadleyiAST [Catalytic activity/Vol]13 U/DYkhepp52-75 [facility] DiagnosticsComment on above:Performed By: #### 7600 #### [facility] [address], [address] [place] [address] [employer] Operator: Sandro Cavazos MD #### [id number] #### [facility] [address] [place], [place] [address] C[employer] Operator: Betsy HeadleyiBilirubin [Mass/Vol]0.7 mg/dLNormal0.2-1.2 Quest DiagnosticsComment on above:Performed By: #### 7600 #### [facility] [address], [address] [place] [address] C[employer] Operator: Sandro Cavazos MD #### [id number] #### [facility] [address] [place] [address] Caterp[employer] Operator: Betsy Coreas FlatiCalcium [Mass/Vol]9.4 mg/dLNormal8.6-10.4Quest DiagnosticsComment on above:Performed By: #### 7600 #### [facility] [address], [address] [place] [address] C[employer]pillar Operator: Sandro Cavazos MD #### 91041 #### [facility] [address] [place] [address] Caterpillar Operator: Betsy HeadleyiChloride [Moles/Vol]107 mmol/SSypmqe50-555 Quest DiagnosticsComment on above:Performed By: #### 7600 #### [facility] [address], [address] [place] [address] Caterpillar Operator: Sandro Cavazos MD #### [id number] #### [facility] [address] [place], [place] [address] Caterpillar Operator: Betsy Coreas FlatiCO2 [Moles/Vol]28 mmol/HTsmftl37-00Zchrl DiagnosticsComment on above:Performed By: #### 7600 #### [facility] [address], [address] [place] [address] Caterpillar Operator: Sandro Cavazos MD #### [id number] #### [facility] [address] [place], [place] [address] Caterpillar Operator: Betsy Coreas FlatiCreatinine [Mass/Vol]1.13 mg/dLHigh0.60-1.00 Quest DiagnosticsComment on above:Performed By: #### 7600 #### [facility] [address], [address] [place] [address] Caterpillar Operator: Sandro Cavazos MD #### 11286 #### [facility] [address] [place], [place] [address] Caterpillar Operator: Betsy HeadleyiGFR/1.73 sq M.predicted among non-blacks MDRD (S/P/Bld) [Vol rate/Area]51 mL/min/{1.73_m2}Low> OR = 60Quest DiagnosticsComment on above:Performed By: #### 7600 #### [facility] [address], [address] [place] [address] C[employer] Operator: Sandro Cavazos MD #### [id number] #### [facility] [address] [place], [place] [address] Caterpillar Operator: Betsy Coreas FlatiGlobulin (S) [Mass/Vol]2.6 g/dLNormal1.9-3.7 [facility] DiagnosticsComment on above:Performed By: #### 7600 #### [facility] [address], [address] [place] [address] Caterpillar Operator: Sandro Cavazos MD #### [id number] #### [facility] [address] [place] [address] C[employer] Operator: Betsy Coreas FlatiGlucose [Mass/Vol]113 mg/oGYhuu61-25Eiwnp DiagnosticsComment on above:Result Comment: Fasting reference interval For someone without known diabetes, a glucose value between 100 and 125 mg/dL is consistent with prediabetes and should be confirmed with a follow-up test.Performed By: #### 7600 #### [facility] [address], [address] [place] [address] Caterpillar Operator: Sandro Cavazos MD #### 18105 #### [facility] [address] C[employer] Operator: Betsy Coreas FlatiPotassium [Moles/Vol]4.5 mmol/LNormal3.5-5.3 Quest DiagnosticsComment on above:Performed By: #### 7600 #### [facility] [address], [address] [place] [address] Caterpillar Operator: Sandro Cavazos MD #### 88040 #### [facility] [address] Caterpillar Operator: Betsy Coreas FlatiProtein [Mass/Vol]6.8 g/dLNormal6.1-8.1Quest DiagnosticsComment on above:Performed By: #### 7600 #### [facility] [place] [address] Caterpillar Operator: Sandro Cavazos MD #### 900[address] #### [facility] [address] Caterpillar Operator: Betsy Coreas FlatiSodium [Moles/Vol]142 mmol/EMlxywb293-888Lqlaa DiagnosticsComment on above:Performed By: #### 7600 #### [facility] [address], [address] [place] [address] Caterpillar Operator: Sandro Cavazos MD #### 10906 #### [facility] [address] Caterpillar Operator: Betsy HeadleyiUrea nitrogen [Mass/Vol]23 mg/dLNormal7-25 [facility] DiagnosticsComment on above:Performed By: #### 7600 #### [facility] [place] [address] [place] [address] Caterpillar Operator: Sandro Cavazos MD #### 39789 #### [facility] [address] [place], [place] [address] Caterpillar Operator: Betsy Mckay nitrogen/Creatinine [Mass ratio]20 mg/mg Normal-Quest DiagnosticsComment on above:Performed By: #### 7600 #### [facility] [address], [address] [place] [address] Caterpillar Operator: Sandro Cavazos MD #### 50418 #### [facility] [address] [place], [place] [address] Caterpillar Operator: Betsy ARITA [facility] 40-68-4551Kfaybxrcybe [Mass/Vol]206 mg/dLHigh<200Quest DiagnosticsComment on above:Order Comment: FASTING:YES FASTING: YESPerformed By: #### 7600 #### [facility] [address], [address] [place] [address] Caterpillar Operator: Sandro Cavazos MD #### 49961 #### [facility] [address] [place], [place] [address] Caterpillar Operator: Betsy HeadleyiCholesterol in HDL [Mass/Vol]59 mg/dLNormal> OR = 50Quest DiagnosticsComment on above:Order Comment: FASTING:YES FASTING: YESPerformed By: #### 7600 #### [facility] [address], [address] [place] [address] Caterpillar Operator: Sandro Cavazos MD #### 78643 #### [facility] [address] [place], [place] [address] Caterpillar Operator: Betsy HeadleyiCholesterol in LDL [Mass/Vol]121 mg/dLHigh [facility] DiagnosticsComment on above:Order Comment: FASTING:YES FASTING: YESResult Comment: Reference range: <100 Desirable range <100 mg/dL for primary prevention; <70 mg/dL for patients with CHD or diabetic patients with > or = 2 CHD risk factors. LDL-C is now calculated using the [employer] calculation, which is a validated novel method providing better accuracy than the Friedewald equation in the estimation of LDL-C. Robert WHITTAKER et al. ALEC. 2013;310(19): 1761-1829 (http://[employer]/faq/JNX249)Performed By: #### 7600 #### [facility] [address], [address] [place] [address] Caterpillar Operator: Sandro Cavazos MD #### [id number] #### [facility] [address] [place], [place] [id number] [employer] Operator: Betsy Barba.total/Cholesterol in HDL [Mass ratio]3.5 {ratio}Normal<5.0Quest DiagnosticsComment on above:Order Comment: FASTING:YES FASTING: YESPerformed By: #### 7600 #### [facility] [address], [address] [place] [address] Caterpillar Operator: Sandro Cavazos MD #### [id number] #### [facility] [address] [place] [address] [employer] Operator: Betsy Beebe HDL NOCSVGZVWEZ421 mg/dL (calc)High<130 Quest DiagnosticsComment on above:Order Comment: FASTING:YES FASTING: YESResult Comment: For patients with diabetes plus 1 major ASCVD risk factor, treating to a non-HDL-C goal of <100 mg/dL (LDL-C of <70 mg/dL) is considered a therapeutic option.Performed By: #### 7600 #### [facility] [address], [address] [place] [address] [employer]aterpillar Operator: Sandro Cavazos MD #### [id number] #### [facility] [address] [place] [address] [employer] Operator: Betsy HeadleyiTriglyceride [Mass/Vol]151 mg/dLHigh<150Quest DiagnosticsComment on above:Order Comment: FASTING:YES FASTING: YESPerformed By: #### 7600 #### [facility] [address] [facility], [address] [place] [address] Caterpillar Operator: Sandro Cavazos MD #### [id number] #### [facility] [address] [place] [phone] [employer] Operator: Betsy JaimeTHORACIC ECHO (TTE) COMPLETEon 09-04-2023 TRANSTHORACIC ECHO (TTE) [facility] [address] [place] [address], [address] [address] TRANSTHORACIC ECHOCARDIOGRAM REPORT Patient Name: LEIA DUCKWORTHCHRIS Reading Physician: [id number] Gama Herrera MD Study Date: 09/04/2023 Ordering Provider: [id number] GUS MALIK MRN/PID: [id number] Fellow: Nurse: Date of /Age: 7 1950 / 72 years Crop Duster: Aye Hoover RD, RVT Gender: F Additional Staff: Height: 175.26 cm Admit Date: Weight: 107.05 kg Admission Status: BSA / BMI: 2.22 m2 / 34.85 kg/m2 Department Location: [facility] Blood Pressure: 122 /68 mmHg Study Type: TRANSTHORACIC ECHO (TTE) COMPLETE Diagnosis/ICD: Paroxysmal atrial fibrillation-I48.0; 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 PHYSICIAN INTERPRETATION: Left Ventricle: [...] ejection fraction. QUANTITATIVE DATA SUMMARY: 2D MEASUREMENTS: Normal [...] mmHg PIEDV: 1.76 m/s PADP: 15.4 mmHg [id number] Herrera MD Electronically signed on 09/04/2023 at 1:17:02 PM Final [facility]) completeon 09-04-[address], [address] [place] [address] TRANSTHORACIC ECHOCARDIOGRAM REPORT Patient Name: LEIA EWING Reading Physician: [id number] Herrera MD Study Date: 09/04/2023 Ordering Provider: [id number] GUS MALIK MRN/PID: [id number] Fellow: Nurse: Date of /Age: 7 1950 / 72 years Crop Duster: Aye Hoover RDCS, RVT Gender: F Additional Staff: Height: 175.26 cm Admit Date: Weight: 107.05 kg Admission Status: BSA / BMI: 2.22 m2 / 34.85 kg/m2 Department Location: [facility] Blood Pressure: 122 /68 mmHg Study Type: TRANSTHORACIC ECHO (TTE) COMPLETE Diagnosis/ICD: Paroxysmal atrial fibrillation-I48.0; 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 PHYSICIAN INTERPRETATION: Left Ventricle: [...] ejection fraction. QUANTITATIVE DATA SUMMARY: 2D MEASUREMENTS: Normal [...] mmHg PIEDV: 1.76 m/s PADP: 15.4 mmHg [id number] Gama Herrera MD Electronically signed on 09/04/2023 at 1:17:02 PM Final Radiology, Radiologist, - 09/04/[address], Suite [facility], [place] [address] TRANSTHORACIC ECHOCARDIOGRAM REPORT Patient Name: LEIA Camarillo Physician: [id number] Herrera MD Study Date: 09/04/2023 Ordering Provider: [id number] GUS MALIK MRN/PID: [id number] Fellow: Nurse: Date of /Age: 7 1950 / 72 years Crop Duster: Aye Hoover RDCS, RVT Gender: F Additional Staff: Height: 175.26 cm Admit Date: Weight: 107.05 kg Admission Status: BSA / BMI: 2.22 m2 / 34.85 kg/m2 Department Location: [facility] Blood Pressure: 122 /68 mmHg Study Type: TRANSTHORACIC ECHO (TTE) COMPLETE Diagnosis/ICD: Paroxysmal atrial fibrillation-I48.0; 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 PHYSICIAN INTERPRETATION: Left Ventricle: [...] ejection fraction. QUANTITATIVE DATA SUMMARY: 2D MEASUREMENTS: Normal [...] mmHg PIEDV: 1.76 m/s PADP: 15.4 mmHg [id number] Gama Herrera MD Electronically signed on 09/04/2023 at 1:17:02 PM Final [facility] HealthcareRad[facility] Study observation (narrative)[facility] Transthoracic echo (TTE) completeOrdered By: Radiologist Radiology on 09-04-2023 [facility] Work Phone: US Heart TransthoracicOrdered By: Gama Herrera on 59-03-2785Pqujyp Valve Area by Continuity of Peak Velocity2.23 wl2PsikkzzmdbCincinnati VA Medical Center Work Phone: [phone] Valve Area by Continuity of VTI1.83 cm2 [facility] Work Phone: [phone] mn grad3.0mmHgC[facility] Work Phone: [phone] pk grad6.5mmWestern [facility] Work Phone: [phone] pk vel1.27 m/[facility] Work Phone: [phone] A4C EF53.4[facility] Work Phone: [phone] [facility] Work Phone: [phone] diam2.20 [facility] Work Phone: MV avg E/e' ratio9.50[facility] Work Phone: MV E/A ratio1.19[facility] Work Phone: [phone] Work Phone: [phone] Heart Transthoracicon 09-04-[address], [address] [place] [address] TRANSTHORACIC ECHOCARDIOGRAM REPORT Patient Name: LEIA Camarillo Physician: [id number] Gama Herrera MD Study Date: 09/04/2023 Ordering Provider: [id number] GUS MALIK MRN/PID: [id number] Fellow: Nurse: Date of /Age: 7 1950 / 72 years Crop Duster: Aye Hoover RDCS, RVT Gender: F Additional Staff: Height: 175.26 cm Admit Date: Weight: 107.05 kg Admission Status: BSA / BMI: 2.22 m2 / 34.85 kg/m2 Department Location: [facility] Blood Pressure: 122 /68 mmHg Study Type: TRANSTHORACIC ECHO (TTE) COMPLETE Diagnosis/ICD: Paroxysmal atrial fibrillation-I48.0; 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 PHYSICIAN INTERPRETATION: Left Ventricle: [...] ejection fraction. QUANTITATIVE DATA SUMMARY: 2D MEASUREMENTS: Normal [...] mmHg PIEDV: 1.76 m/s PADP: 15.4 mmHg [id number] Gama Herrera MD Electronically signed on 09/04/2023 at 1:17:02 PM Final Gama Phillips MD - 09/04/2023 [facility] [address] [facility], [address], [place] [id number] TRANSTHORACIC ECHOCARDIOGRAM REPORT Patient Name: LEIA EWING Reading Physician: [id number] Gama Herrera MD Study Date: 09/04/2023 Ordering Provider: [id number] GUS MALIK MRN/PID: [id number] Fellow: Nurse: Date of /Age: 7 1950 / 72 years Crop Duster: Aye Hoover RDCS, RVT Gender: F Additional Staff: Height: 175.26 cm Admit Date: Weight: 107.05 kg Admission Status: BSA / BMI: 2.22 m2 / 34.85 kg/m2 Department Location: [facility] Blood Pressure: 122 /68 mmHg Study Type: TRANSTHORACIC ECHO (TTE) COMPLETE Diagnosis/ICD: Paroxysmal atrial fibrillation-I48.0; 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 PHYSICIAN INTERPRETATION: Left Ventricle: [...] ejection fraction. QUANTITATIVE DATA SUMMARY: 2D MEASUREMENTS: Normal [...] mmHg PIEDV: 1.76 m/s PADP: 15.4 mmHg [id number] Gama Herrera MD Electronically signed on 09/04/2023 at 1:17:02 PM Final [facility] Work Phone: Office Visit (Cardiology)on 56-29-4822Ruykbs-up visit Diagnoses/Problems Assessed ASHD (arteriosclerotic heart disease) [...] Weight Tips; Status:Complete - Retrospective Authorization; Done: [id number] Some eating tips that can help you lose weight.; Status:Complete - Retrospective Authorization; Done: [id number] SocHx: Never a smoker Tobacco Use Screening; Status:Complete; Done: 85Tbs6215 Patient Instructions Please bring all medicines, vitamins, [...] usage or recurrent hospitalizations. She sustained inferior NM [facility] 2022 [facility], underwent primary PCI of the third OM [...] Surgical History Problems History of Complete colonoscopy 2020 History of Hip replacement Current Meds Medication [...] Recorded: 20Aug2022 11:17AM Heart Rate68, L Radial Nobmjllk664, LUE, Sitting Qxvdtiyyg30, LUE, Sitting Height5 ft 9 in Ecibbp386 lb BMI Utgizydubx98.18 kg/m2 BSA Calculated2.25 Tobacco Useb) No PHQ-2 [...] time . Signatures Electronically signed by : Gama Canales DO; Aug 20 2022 12:32PM EST (Author) NormalUH TouchworksTobacco Screening.on 24-61-3630Euti risk assessmenta) No falls within the last yearMP-[facility]-2345.com 250 DO Work Phone: Tobacco use status CPHSb) NoMP-[facility]- 2345.com 250 DO Work Phone: Tobacco Screening.Yes-[facility]-[place] 250 DO Work Phone: Office Visit (Cardiology)on 62-42-6777Zyrefa-up visit Diagnoses/Problems Assessed ASHD (arteriosclerotic heart disease) [...] Evaluate AND Treat Status: Hold For - Scheduling,Retrospective Authorization Requested for: [id number] Agreement : I agree to have my [...] Weight Tips; Status:Complete - Retrospective Authorization; Done: [id number] Some eating tips that can help you lose weight.; Status:Complete - Retrospective Authorization; Done: 13Wss1061 SocHx: Never a smoker Tobacco Use Screening; Status:Complete; Done: 64Rid1632 Patient Instructions Please bring all medicines, vitamins, and herbal supplements with you when you come to the office. Prescriptions will not be filled unless you are compliant with your follow up appointments or have a follow up appointment scheduled as per instruction of your physician. Refills should be requested at the time of your visit. Fall prevention education given Cardiac rehab at [facility]. I recommend Omeprazole 20 mg Over the counter to help with protecting stomach. Or Zantac over the counter. Follow up in 6 months Chief Complaint LEIA EWING is being seen for follow-up of a hospitalization for. 71-year-old female follows up with me for the first time following recent inferolateral ST elevation NM in February 2022 with primary PCI of [...] type of exercises given her disability, otherwise follow- up in 6 months Current Meds Medication NameInstruction [...] negative for complaint. Vitals Vital Signs Recorded: 29Yoj6857 08:53AM Heart Rate78, R Radial Evvlmpsn193, LUE, Sitting Udirwngpe03, LUE, Sitting Height5 ft 9 in Mpiigr948 lb (more content not included)...NormalUH TouchworksTobacco Screening.on 03-27-2022 Adult depression screening assessmentYeMayo [facility] Hospital P&R Labpak 250 DO Work Phone: Adult depression screening assessmentNoLincoln Hospital P&R Labpak 250 DO Work Phone: Fall risk assessmentb) One or more falls in the last yearLincoln Hospital P&R Labpak 250 DO Work Phone: Tobacco use status CPHSb) [facility] Heart- Pranav 250 DO Work Phone: Basophils Auto (Bld) [#/Vol]Ordered By: Dario Forman on 80-20-2490Yhtkpxcds (Bld) [#/Vol]0.0 10*3/uL0.0-0.2FLakeHealth TriPoint Medical CenterBasophils/100 WBC Auto (Bld)Ordered By: Dario Forman on 03-14-2022 Basophils/100 WBC (Bld)0.3 %.[facility] CenterBody fluid albumin measurement (mass/volume)Ordered By: Dario Forman on 14-12-8837Adplihc (Body fld) [Mass/Vol]3.4 g/dL3.2-5.5FLakeHealth TriPoint Medical CenterCreatinine and Glomerular filtration rate.predicted panel (S/P/Bld)Ordered By: Dario Forman on 56-55-8976Dcvmrnziiw [Mass/Vol]0.99 mg/dL0.44-1.03[facility] CenterEosinophils Auto (Bld) [#/Vol]Ordered By: Dario Forman on 03-14-2022 Eosinophils (Bld) [#/Vol]0.1 10*3/uL0.0-0.45[facility] Eosinophils/100 WBC Auto (Bld)Ordered By: Dario Forman on 03-14-2022 Eosinophils/100 WBC (Bld)0.7 %.[facility] Medical CenterErythrocyte distribution width Auto (RBC) [Ratio]Ordered By: Dario Forman on 03-14-2022 Erythrocyte distribution width (RBC) [Ratio]14.3 %11.9-15.3FLakeHealth TriPoint Medical CenterEstimated glomerular filtration rate (GFR) non- Ordered By: Dario Forman on 89-10-3165RCA/1.73 sq M.predicted among non-blacks MDRD (S/P/Bld) [Vol rate/Area]55 mL/MinSouthview Medical CenterGlobulin Calc (S) [Mass/Vol]Ordered By: Dario Forman on 35-63-0836Bhghxfhs (S) [Mass/Vol] 2.5 g/dLSouthview Medical CenterHematocrit Auto (Bld) [Volume fraction] Ordered By: Dario Forman on 32-30-6995Lmfrpfailf (Bld) [Volume fraction]37.1 % 34.0-46.4FLakeHealth TriPoint Medical CenterHemoglobin [Mass/volume] in Blood Ordered By: Dario Forman on 08-28-7989Xbqnluadpu (Bld) [Mass/Vol]12.0 g/dL 11.8-15.4FLakeHealth TriPoint Medical CenterLaboratory - Hematology and Cell countsOrdered By: Dario Forman on 15-76-0909Mxjdvtqzw RBC/100 WBC (Bld) [Ratio] 0.0 %0-0.5FLakeHealth TriPoint Medical CenterLeukocytes [#/volume] in Blood by Automated countOrdered By: Dario Forman on 48-98-5283ENC (Bld) [#/Vol]12.6 10*3/uL4.5-11.0[facility] Medical CenterLymphocytes Auto (Bld) [#/Vol] Ordered By: Dario Forman on 88-08-6492Ajxshcczfuk (Bld) [#/Vol]1.1 10*3/uL 1.00-4.8[facility] Medical CenterLymphocytes/100 WBC Auto (Bld)Ordered By: Dario Forman on 08-11-2347Jbjhihrvnsx/100 WBC (Bld)8.8 %.[facility] Auto (RBC) [Entitic mass]Ordered By: Dario Forman on 49-73-4652NLF (RBC) [Entitic mass]29.6 pg24.7-34.3FBlanchard Valley Health SystemHC Auto (RBC) [Mass/Vol]Ordered By: Dario Forman on 89-71-1322VKWN (RBC) [Mass/Vol]32.3 g/dL32.0-35.0[facility] Medical CenterMCV Auto (RBC) [Entitic vol]Ordered By: Dario Forman on 10-59-8682VJB (RBC) [Entitic vol]91.7 yK04-486YutrhzogzSouthview Medical CenterMonocytes Auto (Bld) [#/Vol]Ordered By: Dario Forman on 24-07-6422Cjjoldoyp (Bld) [#/Vol]1.3 10*3/uL0.0-0.8[facility] Medical CenterMonocytes/100 WBC Auto (Bld)Ordered By: Dario Forman on 02-61-5187Lmypljfrz/100 WBC (Bld)10.2 %.[facility] Neutrophils Auto (Bld) [#/Vol]Ordered By: Dario Forman on 61-54-6267Cgskqdakllu (Bld) [#/Vol]10.1 10*3/uL1.8-7.7FLakeHealth TriPoint Medical CenterNeutrophils/100 WBC Auto (Bld)Ordered By: Dario Forman on 92-90-5273Chwwscqyhfe/100 WBC (Bld) 80.0 %.[facility] CenterNo Panel InformationOrdered By: Dario Forman on 96-73-6586Jpdfsagdw GFR ()> 60 mL/MinSouthview Medical CenterComment on above:GFR estimated reference range: According to KDOQI guidelines, <60 ml/min/1.73m2 is sufficient todiagnose a patient with chronic kidney disease.Pharmacy Creatinine Clearance (Chem68.42[facility] Medical CenterPlatelet mean volume Auto (Bld) [Entitic vol]Ordered By: Dario Forman on 68-50-2156Umrtyyle mean volume (Bld) [Entitic vol]9.0 fL6.3-10.7 [facility] CenterPlatelets Auto (Bld) [#/Vol]Ordered By: Dario Forman on 00-69-9655Lbxyzqvtl (Bld) [#/Vol]258 10*3/lX393-901VmlbtchfhSouthview Medical CenterProtein [Mass/volume] in Serum or PlasmaOrdered By: Dario Forman on 70-00-0377Pasxfzi [Mass/Vol]5.9 g/dL6.1-7.9[facility] RBC Auto (Bld) [#/Vol]Ordered By: Dario Forman on 20-56-3959SQV (Bld) [#/Vol] 4.05 10*6/uL3.60-5.00[facility]huja Medical Centererum or plasma alanine aminotransferase measurement without P-5'-P (enzymatic activiOrdered By: Dario Forman on 24-06-7218FEJ No additional P-5'-P [Catalytic activity/Vol]24 U/L10-60 [facility] Medical Centererum or plasma albumin/globulin mass ratio Ordered By: Dario Forman on 74-67-9999Rfvxtok/Globulin [Mass ratio]1.4 {ratio} [facility] Medical Centererum or plasma alkaline phosphatase measurement (enzymatic activity/volume)Ordered By: Dario Forman on 44-33-9877TXO [Catalytic activity/Vol]77 U/Q91-50RdchhlzoaUniversity Hospitals Ahuja Medical Centererum or plasma anion gap determinationOrdered By: Dario Forman on 67-73-0569Gzcbq gap [Moles/Vol]12.9 mmol/L6.0-15.0[facility] Medical Centererum or plasma aspartate aminotransferase measurement (enzymatic activity/volume)Ordered By: Dario Forman on 26-29-2468RKP [Catalytic activity/Vol]90 U/Z41-99LaywvjufqUniversity Hospitals Ahuja Medical Centererum or plasma calcium measurement (mass/volume)Ordered By: Dario Forman on 66-24-3217Iqvmwmm [Mass/Vol]9.3 mg/dL8.2-10.2FKettering Health Miamisburgerum or plasma chloride measurement (moles/volume) Ordered By: Dario Forman on 19-66-1762Kzxbdesg [Moles/Vol]108 mmol/L95-114 [facility] Centererum or plasma glucose measurement (mass/volume)Ordered By: Dario Forman on 82-50-9724Hruztfw [Mass/Vol]112 mg/dL 70-100South[facility] Medical CenterComment on above:ADA recommended reference rangeRandom Glucose Reference Range is dependent on time and content of last meal. Glucose of more than 200 mg/dL in a nonstressed, ambulatory subject supports the diagnosisof Diabetes Mellitus.Serum or plasma potassium measurement (moles/volume)Ordered By: Dario Forman on 11-90-9073Fpcztwdhx [Moles/Vol]4.2 mmol/L3.5-5.1FKettering Health Miamisburgerum or plasma sodium measurement (moles/volume)Ordered By: Dario Forman on 06-41-7941Sdgsfp [Moles/Vol]139 mmol/L435-694QfjpbjrohUniversity Hospitals Ahuja Medical Centererum or plasma total bilirubin measurement (mass/volume)Ordered By: Dario Forman on 03-14-2022 Bilirubin [Mass/Vol]0.9 mg/dL0.3-1.2FKettering Health Miamisburgerum or plasma total carbon dioxide measurement (moles/volume)Ordered By: Dario Forman on 08-00-4168YM8 [Moles/Vol]22.3 mmol/L22.0-30.0[facility] Medical Centererum or plasma urea nitrogen measurement (mass/volume)Ordered By: Dario Forman on 27-78-2572Vegh nitrogen [Mass/Vol]17 mg/dL-[facility]view Medical CenterBNPon 26-30-8718Nsgzytohrrp peptide B (Bld) [Mass/Vol]281.0 pg/mL Normal<=900.0The [facility] Rita'S Medical CenterComment on above:Performed By: #### BNP, CMP, CMADM #### [facility] [address] [place] [address] Dr. Abimael Armenta ANA ADMITon 51-04-1522OW [Catalytic activity/Vol]72 U/L Wujomo97-715Ggu [facility] Rita'S Medical CenterComment on above:Performed By: #### BNP, CMP, CMADM #### [facility] [address] [place] [address] Dr. Abimael Sinha.MB [Mass/Vol]5.23 ng/mLCritically high<=3.60The [facility] Rita'S Medical CenterComment on above:Performed By: #### BNP, CMP, CMADM #### [facility] [address] [place] [address] Dr. Abimael FloydHSTROP729.5 pg/mLCritically high4.0-51.3The [facility] Comment on above:Result Comment: CUT-OFF POINTS HAVE BEEN ESTABLISHED BASED ON THE FOURTH UNIVERSAL DEFINITIONS OF MYOCARDIAL INFARCTION. THE UPPER REFERENCE LIMIT (URL) OF TROPONIN, DEFINED THE 99TH PERCENTILE OF cTnI DISTRIBUTION IN A REFERENCE POPULATION, HAS BEEN CONFIRMED THE DECISION THRESHOLD FOR NM DIAGNOSIS.Performed By: #### BNP, CMP, CMADM #### [facility] [address] [place] [address] Dr. Abimael FloydMYO111 ng/mLCritically high9-82The [facility] Rita'S Medical CenterComment on above:Performed By: #### BNP, CMP, CMADM #### [facility] [address] [address] [address] Abimael Taylor AUTO DIFFon 79-00-8085OCXM #0.1 103/ulNormal0.0-0.1The [facility] Rita'S Medical CenterComment on above:Performed By: #### CBC #### [facility] [address] [place] [address] Dr. Abimael FloydBasophils/100 WBC (Bld)0.5 %Normal0.2-2.0[facility] Comment on above:Performed By: #### CBC #### [facility] [address] [place] [address] Dr. Abimael Jiang #0.2 103/ulNormal0.0-0.7The [facility] Rita'S Medical CenterComment on above: Performed By: #### CBC #### [facility] [address] [place] [address] Dr. Abimael Baltazarosinophils/100 WBC (Bld)1.4 %Normal0.9-7.0[facility] Comment on above:Performed By: #### CBC #### [facility] [address] [place] [address] Dr. Abimael Baltazarrythrocyte distribution width (RBC) [Ratio]13.9 %Cqxwzo21.0-15.[address] Rita'S Medical CenterComment on above:Performed By: #### CBC #### [facility] [address] [place] [address] Dr. Abimael FloydHematocrit (Bld) [Volume fraction]39.3 %Foxozk93.0-48.0The [facility] Rita'S Medical CenterComment on above:Performed By: #### CBC #### [facility] [address] [place] [address] Dr. Abimael FloydHemoglobin (Bld) [Mass/Vol]12.9 g/iQNzijxq05.0-16.0[facility] HospitalComment on above:Performed By: #### CBC #### [facility] [address] [place] [address] Dr. Abimael Pulido #0.03 10e3/ulNormal0.00-0.03The [facility] Rita'S Medical CenterComment on above:Performed By: #### CBC #### [facility] [address] [place] [address] Dr. Aibmael Pulido %0.2 %Normal0.0-0.5The [facility] Rita'S Medical CenterComment on above: Performed By: #### CBC #### [facility] [address] [place] [address] [address] Abimael Avila #1.1 103/ulCritically low1.2-3.8The [facility] Comment on above:Performed By: #### CBC #### [facility] [address] [place] [address] Dr. Abimael Gastelumhocytes/100 WBC (Bld)8.3 %Critically low20.5-60.0The [facility] Rita'S Medical CenterComment on above:Performed By: #### CBC #### [facility] [address] [place] [address] Dr. Abimael Sullivan DIFF REQNONormalThe [facility] St. Rita'S Medical CenterComment on above: Performed By: #### CBC #### [facility] [address] [place] [address] Dr. Abimael Olmstead (RBC) [Entitic mass]30.0 mnLilpxs23.7-34.0The [facility]'S Medical CenterComment on above:Performed By: #### CBC #### [facility] [address] [place] [address] Dr. Abimael Conklin (RBC) [Mass/Vol]32.8 g/gSUwhwwt18.9-35.2The [facility]S Medical CenterComment on above:Performed By: #### CBC #### [facility] [address] [place] [address] Dr. Abimael Vines (RBC) [Entitic vol]91.4 bLRgcgac09.0-99.0The [facility]'S Medical CenterComment on above:Performed By: #### CBC #### [facility] [address] [place] [address] Dr. Yilan ChangMONO #0.9 103/ulCritically high0.3-0.8The [facility] Comment on above:Performed By: #### CBC #### [facility] [address] [place] [address] Dr. Abimael Cosbyocytes/100 WBC (Bld)6.8 %Normal1.7-12.0[facility] Comment on above:Performed By: #### CBC #### [facility] [address] [place] [address] Dr. Abimael Escobar #10.5 103/ulCritically high1.4-6.5The [facility] Comment on above:Performed By: #### CBC #### [facility] [address] [place] [address] Dr. Abimael Roblesutrophils/100 WBC (Bld)82.8 %Critically high43.0-75.0The [facility] Medical CenterComment on above:Performed By: #### CBC #### [facility] [address] [place] [address] Dr. Abimael Del Cidlet mean volume (Bld) [Entitic vol]10.2 fLNormal9.5-13.5The [facility] Medical CenterComment on above:Performed By: #### CBC #### [facility] [address] [place] [address] Dr. Abimael FloydPLT251 103/sqFseixy010-964Bqn [facility] Medical CenterComment on above: Performed By: #### CBC #### [facility] [address] [place] [address] Dr. Abimael FloydRBC4.30 106/ulNormal4.20-5.40The [facility] Medical CenterComment on above:Performed By: #### CBC #### [facility] [address] [place] [address] Dr. Abimael VernonBC12.7 103/ulCritically high4.0-11.0The [facility] Medical CenterComment on above:Performed By: #### CBC #### [facility] [address] [place] [address] Dr. Abimael Burgos 14(COMP METB)on 95-32-7083Bnmkywp [Mass/Vol]4.0 g/dLNormal 3.4-5.0The [facility] Medical CenterComment on above:Performed By: #### BNP, CMP, CMADM #### [facility] [address] [address] [address] Abimael FloydAlbumin/Globulin [Mass ratio]1.1 {ratio}NormalThe [facility]'S Medical CenterComment on above:Performed By: #### BNP, CMP, CMADM #### [facility] [address] [address] [address] Abimael LindseyP [Catalytic activity/Vol]115 U/ULfhvbg10-309Qjx [facility] Medical CenterComment on above:Performed By: #### BNP, CMP, CMADM #### [facility] [address] [address] [address] Abimael LindseyT [Catalytic activity/Vol]15 U/VZhggbb87-24Bpp [facility] Medical CenterComment on above:Performed By: #### BNP, CMP, CMADM #### [facility] [address] [address] [address] Abimael Garg gap [Moles/Vol]10.4 mmol/LNormalThe [facility] Comment on above:Performed By: #### BNP, CMP, CMADM #### [facility] [address] [address] [address] Abimael FloydAST [Catalytic activity/Vol]14 U/LCritically vhl25-70Eps [facility] Medical CenterComment on above:Performed By: #### BNP, CMP, CMADM #### [facility] [address] [address] [address] Abimael FloydBilirubin [Mass/Vol]1.0 mg/dLNormal0.2-1.0The [facility] Comment on above:Performed By: #### BNP, CMP, CMADM #### [facility] [address] [address] [address] Abimael FloydCalcium [Mass/Vol]9.3 mg/dLNormal8.5-10.1The [facility] Comment on above:Performed By: #### BNP, CMP, CMADM #### [facility] [address] [address] [address] Abimael FloydChloride [Moles/Vol]103 mmol/PQyejrf01-897Fmm [facility] Comment on above:Performed By: #### BNP, CMP, CMADM #### [facility] [address] [place] [address] Dr. Abimael FloydCO2 [Moles/Vol]26.6 mmol/WLdrell71.0-32.0The [facility] Comment on above:Performed By: #### BNP, CMP, CMADM #### [facility] [address] [place] [address] Dr. Abimael FloydCreatinine [Mass/Vol]1.03 mg/dLCritically high0.55-1.02[facility] HospitalComment on above:Performed By: #### BNP, CMP, CMADM #### [facility] [address] [place] [address] Dr. Varghese ChangEGFR-AF PITCAIRN ISLANDER>60Normal>=60The [facility]'S Medical CenterComment on above:Performed By: #### BNP, CMP, CMADM #### [facility] [address] [place] [address] Dr. Abimael BaltazarGFR-NON AF EZRJIGYW44 mL/min/1.75p7Vdfackouml low>=60The [facility] Medical CenterComment on above:Performed By: #### BNP, CMP, CMADM #### [facility] [address] [place] [address] Dr. Abimael FloydGlobulin (S) [Mass/Vol]3.5 g/dLNormalThe [facility] Medical CenterComment on above:Performed By: #### BNP, CMP, CMADM #### [facility] [address] [place] [address] Dr. Abimael FloydGlucose [Mass/Vol]144 mg/dLCritically nrwj53-974Xgg [facility] Medical CenterComment on above:Performed By: #### BNP, CMP, CMADM #### [facility] [address] [place] [address] Dr. Abimael FloydPotassium [Moles/Vol]4.0 mmol/LNormal3.5-5.1The [facility] Comment on above:Performed By: #### BNP, CMP, CMADM #### [facility] [address] [address] [address] Abimael FloydProtein [Mass/Vol]7.5 g/dLNormal6.4-8.2[facility] Comment on above:Performed By: #### BNP, CMP, CMADM #### [facility] [address] [address] [address] Abimael FloydSodium [Moles/Vol]136 mmol/HLevehm261-216Stl [facility] Comment on above:Performed By: #### BNP, CMP, CMADM #### [facility] [address] [address] [address] Abimael FloydUrea nitrogen [Mass/Vol]26.0 mg/dLCritically high7.0-18.0[facility] HospitalComment on above:Performed By: #### BNP, CMP, CMADM #### [facility] [address] [address] [address] Abimael Alexander nitrogen/Creatinine [Mass ratio]25.2 mg/mgNoTrumbull Regional Medical CenterComment on above:Performed By: #### BNP, CMP, CMADM #### [facility] [address] [address] [address] Abimael FloydXR CHEST 1 Von 26-40-2133XX CHEST 1 VEXAM: Chest x-ray HISTORY: CHEST PAIN, UNSPECIFIED . [...] Electronically authenticated by: CHLOÉ DARBY Date: 2022-03-13 12:14[facility]XR [facility] Complete Left*on 10-33-1519QK Shoulder Complete Left*BILATERAL SHOULDERS FINDINGS: Mildly bulbous subacromial processes bilaterally. [...] and signed by Raphael Jones on 12/11/2021 1357NoProMedica Fostoria Community HospitalXR Shoulder Complete Right*on 83-99-2725KF Shoulder Complete Right*Please see the left shoulder x-ray report from this same date Report reported and signed by Raphael Jones on 12/11/2021 1356NoProMedica Fostoria Community HospitalComprehensive Metabolic Panelon 51-81-7697Fdhxstf [Mass/Vol]4.7 g/dLNormal3.6-5.1[facility] CenterComment on above: Performed By: #### CMP, LIPD #### [facility] [address], [place] [id number]/Globulin [Mass ratio]2.4 {ratio}Normal1.0-2.5NoMemorial HospitalComment on above:Performed By: #### CMP, LIPD #### [facility] [address], [place] [id number] [Catalytic activity/Vol]111 U/SSzlcdp16-930BoxvimcbMemorial HospitalComment on above:Performed By: #### CMP, LIPD #### [facility] [address], [place] [id number] [Catalytic activity/Vol]12 U/LNormal6-33NoKettering [facility] Center SpecialistComment on above:Result Comment: 03/20/2021 Female reference range changed.Performed By: #### CMP, LIPD #### [facility] [address], [place] [id number] gap [Moles/Vol]16 mmol/NMvoffi37-81Cfklvjra [place] [facility] SpecialistComment on above:Result Comment: Effective 04/25/2019 reference range changed.Performed By: #### CMP, LIPD #### [facility] [address], [place] [id number] [Catalytic activity/Vol]12 U/LNormal9-34[facility] SpecialistComment on above:Performed By: #### CMP, LIPD #### [facility] [address], [place] [id number] [Mass/Vol]0.66 mg/dLNormal0.30-1.20Nortdignity health ari[facility] hospitaln [place] [facility] SpecialistComment on above:Performed By: #### CMP, LIPD #### [facility] [address], [place] [id number]/CREA31 RatioHigh6-22NortCrystal Clinic Orthopedic CenterCanoe Inspector Comment on above:Performed By: #### CMP, LIPD #### [facility] [address], [place] [id number] [Mass/Vol]9.9 mg/dLNormal8.6-10.2[facility] SpecialistComment on above:Performed By: #### CMP, LIPD #### [facility] [address], [place] [id number] [Moles/Vol]106 mmol/AReihnf75-834Lofuulqk [place] [facility] SpecialistComment on above:Performed By: #### CMP, LIPD #### [facility] [address], [place] [id number] [Moles/Vol]23 mmol/FFbhibi15-34Vuanmnsu [place] [facility] SpecialistComment on above:Performed By: #### CMP, LIPD #### [facility] [address], [place] [id number] [Mass/Vol]0.8 mg/dLNormal0.6-1.4Nortdignity health a[facility] hospitaln [place] [facility] SpecialistComment on above:Performed By: #### CMP, LIPD #### [facility] [address], [place] [id number] mL/min/1.93s1Febtmd>60Nortdignity health a[facility] hospitaln [place] [facility] SpecialistComment on above:Performed By: #### CMP, LIPD #### [facility] [address], [place] [id number] mL/min/1.31z9Pdezhp>60[facility] SpecialistComment on above:Performed By: #### CMP, LIPD #### [facility] [address], [place] [id number] (S) [Mass/Vol]2.0 g/dLNormal1.9-3.7[facility] SpecialistComment on above:Performed By: #### CMP, LIPD #### [facility] [address], [place] [id number] [Mass/Vol]102 mg/lNJmaz72-81Kvswjocl [place] [facility] SpecialistComment on above:Result Comment: For FASTING Glucose --- ADA reference ranges: Normal 65-99 mg/dl Prediabetes 100-125 Diabetes >/= 126Performed By: #### CMP, LIPD #### [facility] [address], [place] [id number] [Moles/Vol]4.4 mmol/LNormal3.5-5.5[facility] SpecialistComment on above:Performed By: #### CMP, LIPD #### [facility] [address], [place] [id number] [Mass/Vol]6.7 g/dLNormal6.1-8.1[facility] SpecialistComment on above:Performed By: #### CMP, LIPD #### [facility] [address], [place] [id number] [Moles/Vol]141 mmol/PPbqibr048-010Rgxqgwsn [place] [facility] SpecialistComment on above:Performed By: #### CMP, LIPD #### [facility] [address], [place] [id number] nitrogen [Mass/Vol]25 mg/dLNormal7-25[facility] SpecialistComment on above:Performed By: #### CMP, LIPD #### [facility] [address], [place] [id number] Panelon 35-86-1944Qlytjahicmk [Mass/Vol]268 mg/dLHigh 125-200NoKettering Health Behavioral [facility] Center SpecialistComment on above:Result Comment: Low risk < 200mg/dL Borderline risk 201-239 mg/dl High risk > or equal to 240Performed By: #### CMP, LIPD #### [facility] [address] [place], [place] [id number] in HDL [Mass/Vol]62 mg/dLNormal>40NoK[facility] Center SpecialistComment on above:Result Comment: High Cardiovascular Risk HDL <40 mg/dL Low Cardiovascular Risk HDL > or equal to 60 mg/dlPerformed By: #### CMP, LIPD #### [facility] [address] [place], [place] [id number] in LDL [Mass/Vol]184 mg/dLNormalSt. Anthony'S Hospital SpecialistComment on above:Result Comment: LDL ATP III CLASSIFICATION LDL less than 100 mg/dl Optimal LDL 100-129 mg/dl Near or above optimal LDL 130-159 Borderline high LDL 160-189 High LDL greater than 189 mg/dl Very HighPerformed By: #### CMP, LIPD #### [facility] [address] [place], [place] [id number] in VLDL [Mass/Vol]22 mg/dLNormalNoKettering [facility] Center SpecialistComment on above:Performed By: #### CMP, LIPD #### [facility] [address], [place] [id number].total/Cholesterol in HDL [Mass ratio]4 {ratio} NormalNoKettering Health Behavioral Medical Center SpecialistComment on above:Performed By: #### CMP, LIPD #### [facility] [address] [place], [place] [id number] [Mass/Vol]108 mg/nZKydsls42-100Klovbndw [place] [facility] SpecialistComup health system on above:Result Comment: TRIG ATPIII CLASSIFICATIONS TRIG less than 150 mg/dl Normal TRIG 150-199 mg/dl Borderline High TRIG 200-500 mg/dl High TRIG greather than 500 mg/dl Very HighPerformed By: #### CMP, LIPD #### [facility] [address] [place], [place] [id number] 47-13-2892MMFADmyive Visit (ORTHMN) LEIA EWING ([id number]) 1950 F Date Time Provider Department 02/04/21 [...] previously because of the arthritic changes near osmt-ii-zvkt of the lateral compartment she will have [...] osteoarthritis of left knee (primary encounter diagnosis) (S83.051D) Sprain of medial collateral ligament of left [...] Has a valgus aligned knee with near nqxf-ig-rrtm lateral compartment Follow up: As needed consider cortisone injection Films prior to visit: No additional imaging warranted. SIGNATURE: Yonas Luciano PA-C PATIENT NAME: Leia Ewing DATE: February 04, 2021 TIME: 2:40 PM Referri (more content not included)...NormalC[facility] 24-16-2720PYURIhcerr Visit (ORTHMN) LEIA EWING ([id number]) 1950 F Date Time Provider Department 01/14/21 [...] mild Effusion: effusion present Assessment/Plan ASSESSMENT Diagnosis (A31.778Z) Sprain of medial collateral ligament of left knee, subsequent encounter (primary encounter diagnosis) No orders found for this visit on 01/14/21. PLAN CLINICAL IMPRESSION / ASSESSMENT: (V10.656G) Sprain of medial collateral ligament of left [...] at bedtime. - asp (more content not included)...Normal[facility] 58-70-7039MHUAWwugha TextNormalCCincinnati Shriners Hospital 10-58-7404ORDV Office Visit (ORTHMN) LEIA EWING ([id number]) 1950 F Date Time Provider Department 11/02/20 2:20 PM YONAS LUCIANO During your visit today, [...] and sleeping. Follow up: six weeks con matcher Cortisone injection Films prior to visit: If [...] given to the pa (more content not included)...[facility]V AP/PA BOTH+LAT/CHRIS LTon 75-64-4560PH KNEE 4V AP/PA BOTH+LAT/CHRIS LT* * *Final Report* * * DATE OF [...] soft tissue swelling. No other significant abnormality. IMPRESSION: Moderate to severe bilateral knee degenerative arthritis, more advanced at the right patellofemoral compartment. 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[employer] Transcribe Date/Time: Nov 02 2020 1:37P Dictated by : ERVIN AIKEN MD This examination was interpreted and the report reviewed and electronically signed by: ERVIN AIKEN MD on Nov 02 2020 1:38PM EST [id number] Memorial Hospital Vital Signs Date TimeVital SignValuePerforming GzdhlgxhoYldrmpud80-56-8591 09:59-0400 Diastolic blood giahkgtj78 mm[Hg]Xavier Robbins MD Work Phone: [facility]10-03-2025 09:59-0400 Systolic blood mkiaurln686 mm[Hg]Xavier Robbins MD Work Phone: [facility]09-23-2025 10:46-0400 Body tdgxja514.3 Mario Robbins MD Work Phone: [facility] HospitalZdcitraoov40-30-7387 10:46-0400Body mass index (BMI) [Ratio]37.8 kg/u7WmbkclXavier Robbins MD Work Phone: [phone] HospitalYgmvagyhiu66-20-9786 10:46-0400Body tzqtog682.12 kgXavier Robbins MD Work Phone: [phone] [place], [place] [address]Cfhilnjyrl78-96-1976 10:46-0400Heart pqsv426 /min Xavier Robbins MD Work Phone: [phone] [place], [place] [address]Jbuvfullnq45-08-8123 10:46-3360FyT4% (BldA) [Mass fraction]96 %Xavier Robbins MD Work Phone: [phone] [place], [place] [address]Kgwwgklgmc29-13-4998 14:12-0400Body fyanzg069.3 cmEgoran Robbins MD Work Phone: [phone] [place], [place] [address]Cwbnmgluwy06-27-0522 14:12-0400Body mass index (BMI) [Ratio]37.8 kg/j2OfclroXavier Robbins MD Work Phone: [phone] [place], [place] [address]Miuhkyvckb67-15-6014 14:12-0400Body nbwbmo408.12 kgXavier Robbins MD Work Phone: [phone] [place], [place] [address]Qdjooczcvy23-75-1568 09:25-0400Body roffnx723.3 cmEgoran Robbins MD Work Phone: [phone] [place], [place] [address]Pmlsxoyldj04-73-7518 09:25-0400Body mass index (BMI) [Ratio]37.8 kg/x0MdjgirXavier Robbins MD Work Phone: [phone] [place], [place] [address]Ktnthgvaqg00-18-3342 09:25-0400Body fmrjde365.12 kgXavier Robbins MD Work Phone: [phone])[address]08-06-2025 09:25-0400Diastolic blood ccknabea14 mm[Hg]Xavier Robbins MD Work Phone: [phone] [place], [place] [address]Amvauyzagh91-94-8362 09:25-0400Heart rate87 /min Xavier Robbins MD Work Phone: [phone] HospitalJlvphlzjbf35-93-7683 09:25-3655PsP9% (BldA) [Mass fraction]98 %Xavier Robbins MD Work Phone: [facility] HospitalLmxdyvvtzx62-21-9083 09:25-0400Systolic blood blqeqtbv003 mm[Hg]Xavier Robbins MD Work Phone: [facility] HospitalLpyvllvxyz97-13-1112 11:09-0400Body nmvxya491.3 cmMattabdirizak Hull PA Work Phone: [facility] HospitalValguxcmol95-86-5586 11:09-0400Body mass index (BMI) [Ratio]37.8 kg/i3Euhznji Meyer PA Work Phone: [facility] HospitalGrxmpcgovb91-29-8864 11:09-0400Body asdrsm366.12 kgMattabdirizak Hull PA Work Phone: [facility] HospitalIhnuynvvit17-50-0538 16:14-0400Body eynxyc573.3 cmEgoran Robbins MD Work Phone: [phone] [place], [place] [address]Zvqruxkrrf27-52-9736 16:14-0400Body mass index (BMI) [Ratio]35.15 kg/r6VwjamgXavier Robbins MD Work Phone: [facility] HospitalSpdewwjdqy53-50-5460 16:14-0400Body aaslfe644.96 kgXavier Robbins MD Work Phone: [phone] HospitalQqvmlklmtw43-45-9896 13:48-0400Body llbbaz472.3 Mario Robbins MD Work Phone: [phone] [place], [place] [address]Smumdxqcab55-65-5160 13:48-0400Body mass index (BMI) [Ratio]35.15 kg/u9NedcnxXavier Robbins MD Work Phone: [phone] [place], [place] [address]Lidrlktrrx01-11-5369 13:48-0400Body ismdbd695.96 kgXavier Robbins MD Work Phone: [phone]04-01-2025 14:04-0400Body .3 Mario Robbins MD Work Phone: [phone])[facility] HospitalYzmtyxdinu79-71-8240 14:04-0400Body mass index (BMI) [Ratio]35.15 kg/h7IertrvXavier Robbins MD Work Phone: [facility] HospitalTqkizvvtgx04-55-0645 14:04-0400Body iiomte060.96 kgXavier Robbins MD Work Phone: [phone] [place], [place] 4855302-11-2025 11:13-0500Body .3 cmEgoran Robbins MD Work Phone: [phone] [place], [place] 4855302-11-2025 11:13-0500Body mass index (BMI) [Ratio]35.15 kg/w9YzbkftXavier Robbins MD Work Phone: [phone] [place], [place] 4855302-11-2025 11:13-0500Body lgfojp133.96 kgXavier Robbins MD Work Phone: [phone] [place], [place] 4855302-11-2025 11:13-0500Diastolic blood vhigdiyk25 mm[Hg]Xavier Robbins MD Work Phone: [phone] [place], [place] 4855302-11-2025 11:13-0500Heart rpan575 /min Xavier Robbins MD Work Phone: [phone] [place], [place] 4855302-11-2025 11:13-5123ZgT7% (BldA) [Mass fraction]98 %Xavier Robbins MD Work Phone: [phone] [place], [place] [address]Gopnidcpdo57-94-5504 11:13-0500Systolic blood gonmnlrn381 mm[Hg]Xavier Robbins MD Work Phone: [phone])[facility] HospitalPnsogydkka28-49-8496 10:51-0500Body ijdvzw998.3 cmGama Canales DO Work Phone: [facility]12-13-2024 10:51-0500 Body mass index (BMI) [Ratio]36.06 kg/z8VqmtafqGama Canales DO Work Phone: [facility]12-13-2024 10:51-0500 Body ompejf161.77 kgGama Canales DO Work Phone: [facility]12-13-2024 10:51-0500 Diastolic blood xtqpbbez00 mm[Hg]Gama Canales DO Work Phone: [facility]12-13-2024 10:51-0500 Heart rate80 /minGama Canales DO Work Phone: [facility]12-13-2024 10:51-0500 Systolic blood pcqhdpuz841 mm[Hg]Gama Canales DO Work Phone: [facility]11-12-2024 15:02-0500 Body sximbz804.3 cmEgoran Robbins MD Work Phone: [phone])[address]11-12-2024 15:02-0500Body mass index (BMI) [Ratio]35.15 kg/t7OzokecXavier Robbins MD Work Phone: [phone])[address]11-12-2024 15:02-0500Body .96 kgXavier Robbins MD Work Phone: [phone])[address]11-12-2024 15:02-0500Heart rate96 /min Xavier Robbins MD Work Phone: [phone])[address] [address]-12-2024 15:02-2086RwW4% (BldA) [Mass fraction]98 %Xavier Robbins MD Work Phone: [phone] [place], [place] 4855308-21-2024 11:29-0400Body nwfhua625.3 Mario Robbins MD Work Phone: [phone])[address]08-21-2024 11:29-0400Body mass index (BMI) [Ratio]35.15 kg/h6IgqqymXavier Robbins MD Work Phone: [phone])[address]08-21-2024 11:29-0400Body fukirx872.96 kgXavier Robbins MD Work Phone: [phone] [place] [address]-21-2024 11:29-0400Diastolic blood zfkbocdp29 mm[Hg]Xavier Robbins MD Work Phone: [phone])[address] [place], [place] [address]Zldpyrtsvc88-36-1539 11:29-0400Heart rate85 /min Xavier Robbins MD Work Phone: [phone] [place], [place] [address]21-2024 11:29-5041SgK7% (BldA) [Mass fraction]97 %Xavier Robbins MD Work Phone: [facility] HospitalDnwmtfcxho02-38-3577 11:29-0400Systolic blood jdibckni099 mm[Hg]Xavier Robbins MD Work Phone: [facility] HospitalVtqyvqxqbz73-35-1787 15:26-0400Body htvoik644.3 cmGus Malik DIRECTOR SOFTWARE DEVELOPMENT-SINTER FEEDER Work Phone: [phone] [place], [place] 56[address]206-18-2024 15:26-0400 Body mass index (BMI) [Ratio]34.85 kg/b1KxnkdGus Malik DIRECTOR SOFTWARE DEVELOPMENT-SINTER FEEDER Work Phone: [phone]06-18-2024 15:26-0400 Body .05 kgGus Malik DIRECTOR SOFTWARE DEVELOPMENT-SINTER FEEDER Work Phone: [phone]06-18-2024 15:26-0400 Diastolic blood ojmrdiuy72 mm[Hg]Gus Malik DIRECTOR SOFTWARE DEVELOPMENT-SINTER FEEDER Work Phone: [phone] [place], [place] 5626206-18-2024 15:26-0400 Heart rate60 /minDgabriella Malik DIRECTOR SOFTWARE DEVELOPMENT-SINTER FEEDER Work Phone: [phone] [place], [place] 5626206-18-2024 15:26-0400 Systolic blood xrijutim446 mm[Hg]Gus Malik DIRECTOR SOFTWARE DEVELOPMENT-SINTER FEEDER Work Phone: [phone] [place], [place] 5626205-17-2024 10:32-0400 Body trmikj162.[address] [place], [place] 4034705-17-2024 10:32-0400 Body mass index (BMI) [Ratio]34.85 kg/m2Ely [address] [place] [address] 09-04-2023 10:32-0400Body wjcsyf206.[address] [place] [address] 09-04-2023 10:32-0400Diastolic blood bahkqcpk90 mm[Hg]Keli [address] [place], [place] 4034705-17-2024 10:32-0400Systolic blood vvpbuqof842 mm[Hg][address]05-01-2024 14:30-0400Body .3 cmGus Malik DIRECTOR SOFTWARE DEVELOPMENT-SINTER FEEDER Work Phone: [phone]05-01-2024 14:30-0400 Body mass index (BMI) [Ratio]34.85 kg/k1RebdsGus Malik DIRECTOR SOFTWARE DEVELOPMENT-SINTER FEEDER Work Phone: [phone]05-01-2024 14:30-0400 Body .05 kgGus Malik DIRECTOR SOFTWARE DEVELOPMENT-SINTER FEEDER Work Phone: [phone]05-01-2024 14:30-0400 Diastolic blood mm[Hg]Gus Malik DIRECTOR SOFTWARE DEVELOPMENT-SINTER FEEDER Work Phone: [phone]05-01-2024 14:30-0400 Heart rate79 /minDgabriella Malik DIRECTOR SOFTWARE DEVELOPMENT-SINTER FEEDER Work Phone: [phone]05-01-2024 14:30-0400 Systolic blood xfmitgfc928 mm[Hg]Gus Malik DIRECTOR SOFTWARE DEVELOPMENT-SINTER FEEDER Work Phone: [phone]11-01-2023 11:45-0400 Body dshoxk343.3 cmElizabethrangel Parker DO Work Phone: [phone]11-01-2023 11:45-0400 Body mass index (BMI) [Ratio]35.88 kg/e1VakzhmjGama Canales DO Work Phone: [phone]11-01-2023 11:45-0400 Body qivpxs137.22 kgGama Canales DO Work Phone: [phone]11-01-2023 11:45-0400 Diastolic blood khwsnmus14 mm[Hg]Gama Canales DO Work Phone: [phone]11-01-2023 11:45-0400 Heart rate60 /minGama Canales DO Work Phone: [phone]11-01-2023 11:45-0400 Systolic blood fpxbeizv463 mm[Hg]Gama Canales DO Work Phone: [facility]09-09-2023 12:25-0400 Body kifsiu361.26 Elvia Hernandez Other [employer] Other 09-09-2023 12:25-0400Body mass index (BMI) [Ratio] 35.23 kg/e2IvbsoJanette Hernandez Other [employer] Other 09-09-2023 12:25-0400Body jkaiizgizlp46.8 [degF]Janette Hernandez Other [employer] Other 09-09-2023 12:25-0400Body pyrskp384.23 kgJanette Hernandez Other [employer] Other 09-09-2023 12:25-0400Diastolic blood tvviposg36 mm[Hg] Janette Hernandez Other [employer] Other 09-09-2023 12:25-0400Respiratory rate18 /minJanette Hernandez Other [employer] Other 09-09-2023 12:25-9640WxN7% (BldA) [Mass fraction]96 % Janette Hernandez Other [employer] Other 09-09-2023 12:25-0400Systolic blood dmfnajpu138 mm[Hg] Janette Hernandez Other [employer] Other 05-03-2023 11:17-0400Body epuxrx297.26 Mario Aguilaryer Work Phone: [phone][facility]M [facility] DO Work Phone: 1(883) [phone] 11:17-0400Body mass index (BMI) [Ratio] 36.18 kg/a2HaslqfXavier Aguilarfelton Work Phone: 1(332) [phone]-Pqhxv [facility] DO Work Phone: 1(906) 412-713205-03-2023 11:17-0400Body surface area Derived from formula2.25 b5OdqgdjXavier Robbins Work Phone: 1(379) [phone]-Hlavy [facility] 250 DO Work Phone: 1(713) [phone] 11:17-0400Body baudsu492.13 kgXavier Aguilarfelton Work Phone: 1([phone]-Mwyho [facility] 250 DO Work Phone: 1(382) 344-650305-03-2023 11:17-0400Diastolic blood uuphpgty85 mm[Hg] Xavier Aguilarfelton Work Phone: 1(735) [phone]-Jdetv [facility] DO Work Phone: 1(367) [phone] 11:17-0400Heart rate68 /minEgoran Spaulding Jeffyer Work Phone: 1([phone]-Ckimr [facility] 250 DO Work Phone: 1(755) 462-269505-03-2023 11:17-0400Systolic blood ankatbtj522 mm[Hg] Xavier Robbins Work Phone: 1(297) [phone]-Updhh [facility] 250 DO Work Phone: 1(284) [phone] 08:53-0500Body oyiimh894.26 cmEdalejandro Aguilarfelton Work Phone: 1(677) [phone]-Jwdjf [facility] 250 DO Work Phone: 1(532) [phone] 08:53-0500Body mass index (BMI) [Ratio] 36.77 kg/n5MrduonXavier Robbins Work Phone: 1(482) [phone]-Ffukz [facility] 250 DO Work Phone: 1(456) 170-925212-08-2022 08:53-0500Body surface area Derived from formula2.27 a6TiposjXavier Robbins Work Phone: 1(220) [phone]-Omeoo [facility] 250 DO Work Phone: 1(416) [phone] 08:53-0500Body .95 kgXavier Robbins Work Phone: 1(475) [phone]-Geoxi [facility] 250 DO Work Phone: 1(185) 209-315612-08-2022 08:53-0500Diastolic blood luyadnfe06 mm[Hg] Xavier Robbins Work Phone: 1(376) [phone]-Pkrrx [facility] 250 DO Work Phone: 1(388) [phone] 08:53-0500Heart rate78 /minEgoran Robbins Work Phone: 1(401) [phone]-Hhiyj [facility] 250 DO Work Phone: 1(659) [phone] 08:53-0500Systolic blood eddgroxc140 mm[Hg] Xavier Robbins Work Phone: 1(394) [phone]-Lfrie [facility] 250 DO Work Phone: 1(522) [phone] 14:00-0500Diastolic blood xruwaiwq86 mm[Hg] MD Dario Forman Work Phone: [facility]11-25-2022 14:00-0500 Heart rate66 /minMD Dario Forman Work Phone: [facility]11-25-2022 14:00-0500 Respiratory rate16 /min Dario Forman Work Phone: [facility]11-25-2022 14:00-0500 SaO2% (BldA) [Mass fraction]96 %MD Dario Forman Work Phone: [facility]11-25-2022 14:00-0500 Systolic blood mm[Hg]MD Dario Forman Work Phone: [facility]11-25-2022 11:59-0500 Body uuskpclnfuo66.2 [degF]MD Dario Forman Work Phone: [facility]11-25-2022 11:57-0500 Body .26 cmMD Dario Forman Work Phone: [facility]11-25-2022 06:00-0500 Body .9 kgMD Dario Forman Work Phone: [facility]11-25-2022 00:00-0500 63 1Egoran Robbins Work Phone: 1([phone]-Aayuf [facility] 250 DO Work Phone: Comment on above:[id number] 14:45-0500 Inhaled oxygen flow rate2 L/min Dario Forman Work Phone: [facility] Encounters Encounter DateEncounter TypeCare ProviderFacilityStart: 01-20-2025 End: 54-68-9952ezqpzzrmplKajqyv J Hemeyer MD Work Phone: [facility] Work Phone: Start: 01-20-2025 End: 36-90-7852Ywtghuw encounter procedureRobert Jose Way MD-[facility] Work Phone: Start: 01-10-2025 End: 61-96-3130Wgjcymquyen Robbins MD Work Phone: [facility] Family MedicineStart: 01-10-2025 End: 15-87-4587Hwhuciquyen Robbins MD Work Phone: [facility] [place] [facility] Family MedicineStart: 01-10-2025 End: 33-81-0417ytthqballdITNHKY J HEMEYERNot AvailableStart: 01-10-2025 End: 78-06-1806Falqhj outpatient visit 25 minutesXavier Robbins MD Work Phone: [facility] [address] Family MedicineComment on above:Simple chronic bronchitis (HCC); Mild intermittent asthma without complication (HCC); Urge incontinence of urine; Recurrent major depressive disorder, in partial remission ; Difficulty walking; Morbid obesity due to excess calories (CMS-HCC); Acute cystitis without hematuria; Mixed hyperlipidemiaStart: 12-22-2024 End: 23-44-7313Kkdapwy encounter procedureRobcara Way MD-CT [facility] [place] Work Phone: Start: 12-22-2024 End: 18-88-4449qzocxfosbgCebqbzGerardo Robbins MD Work Phone: [facility] Work Phone: Start: 11-28-2024 End: 97-93-7705Ptnkwfsudhakar Robbins MD Work Phone: [facility] [place] [facility] MedicineStart: 11-28-2024 End: 44-17-2797Dzfpjbsudhakar Robbins MD Work Phone: [facility] [place] Dimitry [facility] MedicineStart: 11-28-2024 End: 86-54-1141Osckai follow up visit related to original Monalisa Robbins MD Work Phone: [facility] [place] [facility] MedicineComment on above:Visit for suture removalStart: 11-28-2024 End: 70-22-0800dmcnmiyjgeUDJFHDGerardo Chapa AvailableStart: 11-24-2024 End: 77-80-2925wbuyemqaepBkhmtkGerardo Robbins MD Work Phone: [facility] Work Phone: Start: 11-24-2024 End: 70-95-2998Labrecf encounter procedureSkip Way MD-[facility] Work Phone: Start: 11-24-2024 End: 13-83-5403Vtdeatn encounter procedureSkip Way MD-[facility] [place] OrthoStart: 11-24-2024 End: 01-00-7833yraoxcvttkUswntzGerardo Robbins MD Work Phone: [facility] Work Phone: Start: 11-23-2024 End: 78-42-1562Iywofc flowsChaes Robbins MD Work Phone: [facility] [place] [facility] Family MedicineStart: 11-23-2024 End: 57-52-0309Ctrnnq flowsChase Robbins MD Work Phone: [facility] [place] [facility] MedicineStart: 11-23-2024 End: 40-07-9729Odknsm outpatient visit 25 minutesEdalejandro Robbins MD Work Phone: [facility] [place] [facility] MedicineComment on above:Benign essential hypertension ; Hypertensive nephropathy ; Stage 3a chronic kidney disease (CMS-HCC); Microalbuminuria; Mixed hyperlipidemia ; Restless leg syndrome; Difficulty walking; Uses roller walker; Chronic pain syndromeStart: 11-23-2024 End: 21-40-6275olxibrxafaSPWOKQ J HEMEYERNot AvailableStart: 11-15-2024 End: 00-46-7066xysnerclowDYZTQN J HEMEYERNot AvailableStart: 11-15-2024 End: 01-32-0842Zvawdga encounter procedureXavier Robbins MD Work Phone: [facility] [place] [facility]: Neoplasm of uncertain behavior (Primary Dx); Enlarged pigmented skin lesion; Skin inflammationStart: 10-31-2024 End: 19-88-1708Qqipttu encounter Charleen Robbins MD Work Phone: [facility] 100Comment on above:Cellulitis of left upper extremity (Primary Dx)Start: 10-31-2024 End: 80-02-2870rhesvnrqawMLFOOV J HEMEYERNot AvailableStart: 10-28-2024 End: 94-87-9516Bvlval flowsLillian RENEE Work Phone: [facility] FB ORTHOPAEDICSStart: 10-28-2024 End: 77-85-2150Oidyjs flowsheetAntonia RENEE Work Phone: [facility] FB ORTHOPAEDICSStart: 10-28-2024 End: 52-39-5158Bszkpf outpatient visit 15 minutesMaevelio RENEE Work Phone: [facility] FB ORTHOPAEDICSComment on above:Acute right hip pain (Primary Dx); Right hip pain; History of total hip replacement, rightStart: 10-28-2024 End: 61-49-2528irvtnjohfmVFRKUSD J MEYERNot AvailableStart: 10-14-2024 End: 49-41-5039vxvtgqnfycXSHRHL J HEMEYERNot AvailableStart: 10-13-2024 End: 71-35-5183Glczwn outpatient visit 15 minutesXavier Robbins MD Work Phone: [facility] FM 100Comment on above:Contusion of right hip, initial encounter (Primary Dx); History of right hip replacement; Chronic pain syndrome; Status post left hip replacement; Morbid obesity due to excess calories ([facility])Start: 10-13-2024 End: 16-43-3478czyfipjdxuIQSYHR J HEMEYERNot AvailableStart: 10-13-2024 End: 75-94-8887Tzdbto flowsChase Robbins MD Work Phone: [facility] 100Start: 10-13-2024 End: 24-71-8443Lremzl flowsChase Robbins MD Work Phone: [facility] 100Start: 08-23-2024 End: 91-28-6247Lzpwckquyen Robbins MD Work Phone: [facility] 100Start: 08-23-2024 End: 06-57-4299Tfdxom flowsChase Robbins MD Work Phone: [facility] 100Start: 08-23-2024 End: 39-36-6391fjsvdharenNFODFO J HEMEYERNot AvailableStart: 08-23-2024 End: 01-49-9104Vzyggkl encounter procedureXavier Robbins MD Work Phone: [facility] 100Comment on above:Chronic pain syndrome; Arthritis of left knee; Arthritis of right knee; Uses roller walker; Difficulty walking; Morbid obesity due to excess calories (CMS/HCC); BMI 35.0-35.9,adult; Benign essential hypertension (CMS/HCC)Start: 07-19-2024 End: 35-10-9962Wuylod Angelica Robbins MD Work Phone: [facility] 100Start: 07-19-2024 End: 69-77-6501Ygowiz Angelica Robbins MD Work Phone: [facility] 100Start: 07-19-2024 End: 01-32-1621Knjrwa outpatient visit 15 minutesXavier Robbins MD Work Phone: [facility] 100Comment on above:Chronic pain syndrome (Primary Dx); Arthritis of left knee; Arthritis of right kneeStart: 07-19-2024 End: 65-84-2665ywbyrcluasCCEXUM J HEMEYERNot AvailableStart: 07-12-2024 End: 72-14-1195wbzdspxkgnPGKTKS J HEMEYERNot AvailableStart: 05-31-2024 End: 34-67-3782Jckgex outpatient visit 25 minutesXavier Robbins MD Work Phone: [facility] 100Comment on above:Benign essential hypertension (CMS/HCC); Hypertensive nephropathy (CMS/HCC); Stage 3a chronic kidney disease (HCC) (CMS/HCC); Microalbuminuria; Mixed hyperlipidemia (CMS/HCC); Paroxysmal atrial fibrillation (CMS/HCC); terminologist current use of anticoagulant therapy; Restless leg syndrome; Chronic pain syndrome; Urge incontinence of urine; Simple chronic bronchitis (CMS/HCC)Start: 05-31-2024 End: 94-35-5988bgwqjoktsgNNVKMJ J HEMEYERNot AvailableStart: 04-29-2024 End: 33-66-7393PdkqmsWmqftn J Hemeyer MD Work Phone: [facility] 100Comment on above:Mixed hyperlipidemia (CMS/HCC)Start: 04-28-2024 End: 80-31-6534CleyfyOtoypr J Hemeyer MD Work Phone: [facility] 100Comment on above:Urge incontinenceStart: 04-01-2024 End: 47-80-7387Cxfrdw outpatient visit [facility]ert[facility] Work Phone: [facility] HospitalComment on above:ASHD (arteriosclerotic heart disease); History of myocardial infarction; History of percutaneous coronary intervention; Paroxysmal atrial fibrillation (Multi); Status post insertion of drug eluting coronary artery stent; Mixed hyperlipidemia; Primary hypertension; SOB (shortness of breath) on exertion; Cardiomyopathy, ischemic; MCFP current use of anticoagulant therapy; Class 2 obesity due to excess calories with body mass index (BMI) of 36.0 to 36.9 in adult, unspecified whether serious comorbidity present; Never smoked tobaccoStart: 04-01-2024 End: 40-74-7735xatcefnstcYAFGZXLVibra Hospital of [facility] AmbulatoryStart: 03-01-2024 End: 02-24-3662Dtjkstb encounter Charleen Robbins MD Work Phone: [facility] CI 100Comment on above:Encounter for Medicare annual wellness exam (Primary Dx); Advance directive in chart; Encounter for screening for other disorder; Screening for alcohol problem; Morbid obesity due to excess calories (CMS/HCC); Hemiparesis of left nondominant side due to non-cerebrovascular etiology (CMS/HCC); Uses roller walker; Simple chronic bronchitis (CMS/HCC); Mild intermittent asthma without complication (CMS/HCC); Coronary artery disease involving platinum coronary artery of platinum heart without angina pectoris (CMS/HCC); History of heart attack (CMS/HCC); Benign essential hypertension (CMS/HCC); Hypertensive nephropathy (CMS/HCC); Stage 3a chronic kidney disease (HCC) (CMS/HCC); Mixed hyperlipidemia (CMS/HCC); Recurrent major depressive disorder, in partial remission (HCC) (CMS/HCC); Paroxysmal atrial fibrillation (CMS/HCC)Start: 03-01-2024 End: 66-74-3893cuqcceoehwQHDKIV J HEMEYERNot AvailableStart: 03-01-2024 End: 14-53-8691Ewgszt flowsheetXavier Robbins MD Work Phone: [facility] 100Start: 03-01-2024 End: 30-92-4139Ndxvbu flowsheetXavier Robbins MD Work Phone: [facility] 100Start: 12-09-2023 End: 16-43-3651Dicyop outpatient visit 25 minutesXavier Robbins MD Work Phone: [facility] CI 100Comment on above:Benign essential hypertension (CMS/HCC); Hypertensive nephropathy (CMS/HCC); Stage 3a chronic kidney disease (HCC) (CMS/HCC); Microalbuminuria; Mixed hyperlipidemia (CMS/HCC); Restless leg syndrome; Morbid obesity due to excess calories (CMS/HCC); Uses roller walker; Chronic pain syndrome; Urge incontinence of urineStart: 10-06-2023 End: 54-74-0962Penlxo outpatient visit 15 minutesGus Malik DIRECTOR SOFTWARE DEVELOPMENT-SINTER FEEDER Work Phone: [facility] HospitalComup [facility] on above:Paroxysmal atrial fibrillation (Multi) (Primary Dx); terminologist current use of anticoagulant therapy; ASHD (arteriosclerotic heart disease); Primary hypertension; Mixed hyperlipidemia; Cardiomyopathy, ischemic; BMI 34.0-34.9,adultStart: 10-06-2023 End: 73-88-7155wduyuzqhgpZISYIDorminy Medical Center AmbulatoryStart: 09-21-2023 End: 03-85-0350pgcgyxqgaeIBZEFSouth [facility] AmbulatoryStart: 09-04-2023 End: 53-19-9512Qrdhanbcr Result EncounterGeneric External Data ProviderNOMS External Department UnsolicitedStart: 09-04-2023 End: 57-54-2993Zoeisaaaf Result EncounterGeneric External Data ProviderNOMS External Department UnsolicitedStart: 09-04-2023 End: 32-44-6771Trjrlemysm hospital visit by Amador Villagomez Echo/Vasc Room 2[facility] Shelby CountyComment on above:Paroxysmal atrial fibrillation (Multi); ASHD (arteriosclerotic heart disease); Cardiomyopathy, ischemicStart: 09-04-2023 End: 80-47-3911crfjvajevfNPYWMMetroHealth Main Campus Medical Center Start: 08-19-2023 End: 29-18-1305Nlvqng outpatient visit 25 minutesGus Mcgarry [place] DIRECTOR SOFTWARE DEVELOPMENT-SINTER FEEDER Work Phone: [facility] HospitalComment on above:terminologist current use of anticoagulant therapy (Primary Dx); Paroxysmal atrial fibrillation (Multi); ASHD (arteriosclerotic heart disease); Mixed hyperlipidemia; Primary hypertension; BMI 34.0-34.9,adult; Cardiomyopathy, ischemicStart: 08-19-2023 End: 13-71-8596vxsupwwaiyKPOMV [facility] AmbulatoryStart: 02-18-2023 End: 45-17-7457Hpgkdv outpatient visit 15 minutesDemetripaco Canales DO Work Phone: [facility] HospitalComment on above:ASHD (arteriosclerotic heart disease); History of myocardial infarction; Status post insertion of drug eluting coronary artery stent; Class 2 obesity due to excess calories with body mass index (BMI) of 36.0 to 36.9 in adult, unspecified whether serious comorbidity present; SOB (shortness of breath) on exertionStart: 12-27-2022 End: 68-74-1404mwnrxigxqrBzwws [place] Other [place] Other Start: 78-79-2772Phzhig outpatient visit 15 minutes [facility] ClydeStart: 15-17-9462ftnuughytiMiWesly RobbinsFacility:907[address]Bzopt: 82-46-5940Usaxaz outpatient visit 15 minutesXavier Robbins Work Phone: [phone]-Xikhb [facility] 250 DO Work Phone: Start: 80-97-2458Wxhjnd outpatient visit 25 minutes Xavier Robbins Work Phone: [phone]-Ykxdx [facility] 250 DO Work Phone: Start: 20-23-4503lpinbfmiifBmDr. Xavier Robbins Facility:[id number]: 01-71-8493jfwacnanuhHqWesly RobbinsFacility:[facility] Start: 03-13-2022 End: 70-49-7425yyqovdfrfaLNTTDAQ PROVIDERFacility:METROHealthStart: 03-13-2022 End: 06-83-4616Uxppaagsba and management of inpatientMD Dario Dickson Work Phone: [facility] [place] [facility] Start: 03-13-2022 End: 58-18-8358mkqeermzenYW XAVIER ITZELFacility:H1 Procedures DateProcedureProcedure DetailPerforming ClinicianStart: 79-28-4320SH of right hipEdalejandro Robbins MD Work Phone: Start: 82-27-6760Oskkn X-ray of right hipXavier Itzel NOLAN Work Phone: Start: 37-90-0516Cvetl i surg pathology gross examination onlyEdalejandro Robbins MD Work Phone: Start: 12-14-7286Anfzw hip unilateral with pelvis 2-3 viewsMattabdirizak RENEE Work Phone: Start: 70-89-3628Rbinf 1996 panel - Serum or Plasma Gama Canales DO Work Phone: Start: 63-50-4430QRLSMRDVZGTIL ECHO (TTE) MITCHELL MALIKStart: 09-04-2023 End: 13-37-7379Jkwv tthrc r-t 2d w/wom-mode compl spec&colr dDgabriella Malik DIRECTOR SOFTWARE DEVELOPMENT-SINTER FEEDER Work Phone: Start: 48-40-4499AsnqvbxyfbkGzzrr Smith DIRECTOR SOFTWARE DEVELOPMENT-SINTER FEEDER Work Phone: Start: 95-42-4846Pyxyagj of placement of stent for coronary artery diseaseStatus post insertion of drug eluting coronary artery stentWipaco Canales DO Work Phone: Start: 95-20-5032ZD Coronary Thrombolysis ICMD Darioshai Forman Work Phone: Start: 63-90-7708KG LHC & COR AngioMD Dario Dickson Work Phone: Start: 82-98-1015WE PCI AMI 1st Vessel CX ROMAN Forman Work Phone: Start: 57-97-0629UG Dario Forman Work Phone: Start: 99-27-0825SuarqnxlwmvIacwp Smith DIRECTOR SOFTWARE DEVELOPMENT-SINTER FEEDER Work Phone: History of placement of stent for coronary artery diseaseStatus post insertion of drug eluting coronary artery stentEdalejandro Spaulding Jeffyer Work Phone: History of placement of stent for coronary artery diseaseStatus post insertion of drug eluting coronary artery stentWilliam S Parker DO Work Phone: Total colonoscopyEdalejandro Aguilaryer Work Phone: Comment on above:2019;Total replacement of hipEdalejandro Robbins Work Phone: Plan of Treatment DateCare ActivityDetailAuthorStart: 17-38-5071Ligko panelLipid PanelCincinnati VA Medical CenterStart: 85-15-4879Hoevwxuzx for malignant neoplasm of colon [facility] HealthcareStart: 55-74-8088Zhlumlbbk vaccinationInfluenza Vaccine (#1)[facility] HealthcareComment on above:Postponed from 12/19/2024 (Patient Refused)Start: 79-83-6206Vrxrdsgiuyej Vaccine: 65+ Years (2 of 2 - PCV)Pneumococcal Vaccine: 65+ Years (2 of 2 - PCV)[facility] HealthcareComment on above:Postponed from 09/22/2019 (Patient Refused)Start: 07-05-2025 End: 12-38-9777Yzvaowp encounter /18/2026 10:30 AM EDT Office Visit [facility] [address] [facility] [address] [place] [address] Xavier Robbins MD [address] [facility] [address] [place], [place] [phone] (Work) (Fax)[facility] MedicineStart: 05-23-2025 End: 87-12-3290Qhrprku encounter egknljkdd83/03/2026 11:00 AM EST Office Visit [facility] [address] [place] [address] Xavier Robbins MD [address] [facility] [address] [place] [phone] (Work) (Fax)[facility]TSJonathan [facility] MedicineStart: 04-04-2025 End: 90-28-6130Vnpalvl encounter /16/2025 10:20 AM EST Office Visit [facility] [address] [facility] [address] [place] [address] Gama Canales DO [address] [facility] [address] [place] [address] [facility] HospitalStart: 11-12-2025Medicare Annual Wellness (AWV)Medicare Annual Wellness (AWV)[facility] HealthcareStart: 02-08-2025 End: 73-75-4267Gxawazw encounter mpcbrnqyu03/22/2025 11:00 AM EDT Office Visit [facility] [address] [place] [address] [facility] [address] [place] [address] Xavier Robbins MD [address] [facility] [address] [place] [phone] (Work) (Fax)[facility] Patrick Moraes [facility] MedicineStart: 01-10-2025 End: 52-70-4258Kthsbmx encounter procedureNOMS CI FM 100Start: 12-19-2024 Influenza vaccinationInfluenza Vaccine (#1)[facility] HealthcareStart: 11-28-2024 End: 15-99-8066Ouimvpy encounter procedureNOMS Patrickanastacio Moraes [facility] MedicineComment on above:Visit for suture removal; Uses roller walker; Morbid obesity due to excess calories ([facility]-HCC)Start: 30-51-2627Cdbut X-ray of right hipXR hip RT min 2V(w/wo pelvis)*[facility] Centertart: 94-55-4236GG Hip - right 2 ViewsUniversity Hospitals Ahuja Medical Centertart: 11-23-2024 End: 58-09-1287Hxgurlf encounter procedureNOMS BNS FMComment on above:Benign essential hypertension ; Hypertensive nephropathy ; Stage 3a chronic kidney disease ([facility]-HCC); Microalbuminuria; Mixed hyperlipidemia ; Restless leg syndrome; Difficulty walking; Uses roller walkerStart: 11-15-2024 End: 82-14-9156Fqvvmms encounter latwpdcif41/29/2025 11:00 AM EDT Office Visit [facility] [address] [place] [address] Xavier Robbins MD [address] [place] [address] (Fax)[facility] 100Start: 10-28-2024 End: 09-84-4515Tykdory encounter procedureNOMS FB ORTHOPAEDICSComment on above: Acute right hip pain (Primary Dx)Start: 10-13-2024 End: 70-34-5130Xvwemlp encounter nlsrxsedl16/26/2025 4:30 PM EDT Office Visit [facility] [address] [facility] [address] [place] [address] Xavier Robbins MD [address] [place] [address] (Fax) Chronic pain syndrome; Status post left hip replacement; History of right hipreplacement; Morbid obesity due to excess calories ([facility] CI FM 100Comment on above:Chronic pain syndrome; Status post left hip replacement; History of right hip replacement; Morbid obesity due to excess calories ([facility])Start: 04-92-6956Wkhdhjlsc for malignant neoplasm of colonColorectal Cancer ScreeningNOMS HealthcareComment on above:Postponed from 1948 (Other Medical Reasons)Start: 07-19-2024 End: 13-52-9172Pbnoirb encounter joutkgfho88/01/2025 2:00 PM EDT Office Visit [facility] [address] [place] [address] Xavire Robbins MD [address] [place] [address] (Fax) Chronic pain syndromeNOMS CI FM 100 Comment on above:Chronic pain syndromeStart: 07-12-2024 End: 60-35-2422Rdwghxe encounter fkuzuwqpf89/25/2025 11:00 AM EDT Office Visit [facility] [address] [place] [address] Xavier Robbins MD [address] [place] [address] (Fax)[facility] CI FM 100Start: 05-31-2024 End: 57-72-5338Zzewdocgpjjyq metabolic 2000 panel - Serum or PlasmaComprehensive metabolic panel Lab Routine Benign essential hypertension (CMS/HCC) Hypertensive nephropathy (CMS/HCC) Stage 3a chronic kidney disease (HCC) (CMS/HCC) Expected: 05/31/2024 (Approximate), Expires: 05/31/2025[facility] Work Phone: Comment on above:Expected: 05/31/2024 (Approximate), Expires: 05/31/2025Start: 05-31-2024 End: 40-83-2760Wirtd 1996 panel - Serum or PlasmaLipid panel Lab Routine Mixed hyperlipidemia (CMS/HCC) Expected: 05/31/2024 (Approximate), Expires:05/31/2025 NOMS HealthcareComment on above:Expected: 05/31/2024 (Approximate), Expires: 05/31/2025Start: 05-31-2024 End: 36-29-0044Iohwlss encounter procedureNOMS CI FM 100Start: 85-79-6555NDYYL- 19 Vaccine ( season)COVID-19 Vaccine ( season)[facility]: 81-41-4120Tfhhfqluc for malignant neoplasm of breastMammogramUnDayton Osteopathic Hospital: 92-78-6883Awjwhaocgyjn Vaccine: 65+ Years (2 of 2 - PCV)Pneumococcal Vaccine: 65+ Years (2 of 2 - PCV) NOMS HealthcareComment on above:Postponed from 09/22/2019 (Other Patient Reasons)Start: 11-20-2024Medicare Annual Wellness (AWV)Medicare Annual Wellness (AWV)NOMS HealthcareStart: 02-24-2024 End: 88-92-1479Xhjvtza encounter qtmjkapky17/06/2024 11:30 AM EST Office Visit [address] [place] [address] Gama Canales, [address] [facility] [address] [place] [address] [facility]: 06-32-4655Ukwkjcgnm vaccination [facility]: 05-19-5445Gmqahped mellitus screening Diabetes ScreeningHocking Valley Community Hospital: 78-80-0320WEX High Risk: (Elderly (60+) or Population) (1 - 1-dose 75+ series)RSV High Risk: (Elderly (60+) or Population) (1 - 1-dose 75+ series)[facility]: 09-04-2023 End: 25-52-9286Pfnbkzh encounter vamtubacf24/17/2024 10:45 AM EDT Appointment [address] [place] [address] [facility]: 08-19-2023 End: 20-54-4983VT Heart TransthoracicTransthoracic Echo Complete Echocardiography Routine Paroxysmal atrial fibrillation (Multi) ASHD (ar teriosclerotic heart disease) Cardiomyopathy, ischemic Expected: 08/19/2023 (Approximate), Expires:08/18/2025[facility] Service Area Work Phone: Comment on above:Expected: 08/19/2023 (Approximate), Expires: 08/18/2025Start: 75-41-5958XKG, Provider: Gama Canales, Status: Norbert, Time: 11:00 AMFUV, Provider: Gama Canales, Status: Norbert, Time: 11:00 AM[facility] Work Phone: Start: 07-06-5852Gfwbzqdzu for malignant neoplasm of colonUnDayton Osteopathic Hospital: 64-03-4265BBCMO-19 Vaccine ( season)COVID-19 Vaccine ( season)[facility]: 78-78-7273Dchnvlwml vaccinationInfluenza Vaccine (#1)[facility]: 85-57-7387MZK, Provider: Gama Canales, Status: Pen, Time: 10:40 AMFUV, Provider: Gama Canales, Status: Pen, Time: 10:40 AM [place] [address] DO Work Phone: Start: 37-03-9772DLFEY-19 Vaccine (4 - Moderna series) COVID-19 Vaccine (4 - Moderna series)[facility]: 41-04-9249TwwepwfjlUniversity Hospitals Ahuja Medical Centertart: 91-51-2182Dacdyfjj [facility]tart: 86-52-0206Rzwkepxzpyxs Vaccine: 65+ Years (2 - PCV)Pneumococcal Vaccine: 65+ Years (2 - PCV)[facility]: 02-96-7656Mqgqqzqtttpc Vaccine: 65+ Years (2 of 2 - PCV) Pneumococcal Vaccine: 65+ Years (2 of 2 - PCV)[facility] Start: 22-35-7057YKpX/Tdap/Td Vaccines (1 - Tdap)DTaP/Tdap/Td Vaccines (1 - Tdap)[facility]: 84-85-2180JNT patients and/or patients aged 60+ years (1 - 1-dose 60+ series)RSV patients and/or patients aged 60+ years (1 - 1-dose 60+ series)[facility]: 57-71-3612Tzwyio Vaccines (1 of 2)Zoster Vaccines (1 of 2) [facility]: 69-24-5508Vgixpjyay for malignant neoplasm of breastMammogramUnDayton Osteopathic Hospital: 1968 Hepatitis C screeningHepatitis C ScreeningCincinnati VA Medical Center Start: 47-72-2126Lrtna panelLipid PanelUnDayton Osteopathic Hospital: 07-03-1949Medicare Annual Wellness VisitMedicare Annual Wellness Visit (AWV) [facility]: 57-46-0117Lkwubnqfx for malignant neoplasm of colonHocking Valley Community Hospital: 86-80-8778Zqdtzlzhj for osteoporosisBone Density ScanCincinnati VA Medical CenterFibrin D-dimer [Presence] in Platelet poor plasma by Latex agglutinationSouthview Medical CenterPatient EducationHigh Blood Pressure (DC) Heart Attack (DC) Low Salt Diet What Can Go Wrong After a Heart Attack? Lowering Your Risk of Heart Disease Aspirin to Prevent Heart Attacks and CancerMartin Memorial Hospital Ctr Work Phone: Patient referralMartin Memorial Hospital Ctr Work Phone: [facility] Immunizations Immunization DateImmunizationNotesCare EfiimspoEkrmfmsx29-93-7748Csywgdn SARS-CoV-2 Booster VaccinationEdalejandro Robbins MD Work Phone: [facility] HospitalQqdlsqkrxb71-49-8305Yqevqgdy trivalent influenza vaccine, adjuvanted, preservative freeXavier Robbins MD Work Phone: [facility] HospitalHaktufxxsa24-86-6803ytxtqppry virus vaccine, unspecified formulationXavier Robbins MD Work Phone: [place] [address]Froaywiwtg30-96-1825Mechuzpwb, High-dose Seasonal, Quadrivalent, Preservative FreeXavier Robbins MD Work Phone: [facility] HospitalAiorrwccgx89-28-7073Yazjixh Bivalent Booster VaccinationXavier Robbins MD Work Phone: [facility] HospitalXlcorzrlpc26-38-0091bcyaswgpn virus vaccine, unspecified formulationGama Canales DO Work Phone: [facility] Work Phone: [phone], injectable, quadrivalent, preservative freeXavier Robbins MD Work Phone: [place] [address]Lsibwvbpsw78-87-3226Loinquqjm, Seasonal, Quadrivalent, AdjuvantedEdalejandro Robbins MD Work Phone: [facility] HospitalLocuuhqbti06-98-8803gdcedpcvx, injectable, quadrivalent, preservative freeEdalejandro Aguilaryer MD Work Phone: [facility] HospitalFgctbzewhn16-79-9134ssgpaqandqiv polysaccharide vaccine, 23 valentAmber David Other [facility] HospitalDniecdgjep56-19-7554rajljqfg influenza, intradermal, preservative freeXavier Robbins MD Work Phone: [facility] HospitalCmtbvssnep56-23-6613uvoueuh and diphtheria toxoids, adsorbed, preservative free, for adult use (5 Lf of tetanus toxoid and 2 Lf of diphtheria toxoid)Janette Hernandez Other [place] Other [phone] polysaccharide vaccine, 23 valTrae Robbins MD Work Phone: [facility] Payers DatePayer CategoryPayerPolicy [id number] Health [id number] 2022Medicare (Managed Care) [id number] [id number] 2014MedicareMEDICARE Member Subscriber Plan / Payer (Effective 2013-Present) Name: Leia Ewing Member ID: [id number] Relation to Subscriber: Self Name: Leia Ewing Subscriber ID: [id number] Payer ID: STATE Group ID: Not on file Type: Medicare Address: [place] [id number] [id number] [id number] 2.16.840.1.823119.3.57[id number] 2.16.840.1.943540.3.57[id number] 2.16.840.1.456910.3.57[id number] 2.16.840.1.098628.3.57[id number] 2.16.840.1.996567.3.57[id number] 2.16.840.1.508980.3.57[id number] 2.16840.1.607447.3.57[id number] 2.16.840.1.434349.3.57[id number] 2.16.840.1.007338.3.57[id number] 2.16.840.1.621947.3.57[id number] 2.16.840.1.342537.3.57[id number] 2.16.840.1.966639.3.57[id number] 2.16.840.1.510087.3.57[id number] 2.16.840.1.172367.3.57[id number] 2.16.840.1.310909.3.57[id number] 2.16.840.1.310386.3.57[id number] 2.16.840.1.489347.3.57[id number] 2.16.840.1.426446.3.57[id number] 2.16.840.1.044532.3.579.2.493845-50-7684Hohibfb5981002 2.16.840.1.198813.3.57[id number] 2.16.840.1.949735.3.57[id number] 2.16.840.1.797013.3.57[id number] 2.16.840.1.277952.3.579.2.1259Private Health InsuranceUniversity Hospitals Portage Medical Center [id number] Social History DateTypeDetailFacilityStart: 03-13-2022 End: 36-72-7134Vshvlxh smoking status NHISNever smoked tobacco (finding) [facility] Medical Centertart: 27-67-6157Nlo Assigned At [facility] Hospitaltart: 02-18-2023 End: 69-60-6473Opxzhazm useCaffeine use-[facility] [address] DO Work Phone: Start: 02-18-2023 End: 82-32-8516Rwf Assigned At [place] Other Start: 12-15-2022 End: 11-97-0105Lpyyuou use and exposureSmokeless tobacco non-userUnMercy Hospital Work Phone: Start: 02-18-2023 End: 63-84-3535Wzszhlc intakeCurrent drinker of alcohol (finding)[facility] Work Phone: Start: 35-88-0348Ugz [facility]igned At [facility]Not on file [facility] Work Phone: Start: 02-08-2023 End: 21-48-0493Zoqqgcoo to SARS-CoV-2 (event)Not sureUnMercy HospitalStart: 08-04-2023 End: 40-11-4730Lfbzehocz beverage intakeEx-drinker (finding)[facility]OMS HealthcareDo you belong to any clubs or organizations such as latter day groups, Citysearchs, fraStupeflix or athletic groups, or school groups?NoNOMS HealthcareAre you now , , , , never or living with a partner? WidowedNOMS HealthcareHow often to you have a drink containing alcohol?NeverNOMS HealthcareStart: 31-18-1187Tkh many standard drinks containing alcohol do you have on a typical day?Patient does not drinkNOMS HealthcareDo you feel stress - tense, restless, nervous, or anxious, or unable to sleep at night because your mind is troubled all the time - these days [OSQ]Not at allNOMS Healthcare(I/We) worried whether (my/our) food would run out before (I/we) got money to buy more. Never trueNOMS HealthcareStart: 16-21-1919Xjcdhcj CommentTobacco non-user: current non-smokerNOMS HealthcareStart: 76-19-6926Sirywko Comment1-2 drinks less than monthly in the past year, Caffeine intake 1-2 cups per day coffee, soda/popNOMS HealthcareStart: 08-78-1933Jvhpsnl Commentwine at holidays [facility] Work Phone: SexFemale (finding)[facility] Medical Equipment Procedure CodeEquipment CodeEquipment Original TextEquipment IdentifierDates Drug-eluting coronary artery stent, vqv-fzmlgoyglwtwq-oydkbyv-coated ()[id number] FDAStart: 03-13-2022 Goals DatePatient GoalDesired Activity/StatePersonal health goal Functional Status RjfqLlcitqcatsFsyyotKyjtbndo49-92-5480Xshmitz Health Questionnaire 2 item (PHQ- 2) [Reported][facility] HospitalVannmuvwbh52-57-8576Ytqxkiy Health Questionnaire 2 item (PHQ- 2) [Reported]Christian HospitalLdwjlutulw19-84-1636Rodpqxq Health Questionnaire 2 item (PHQ- 2) [Reported]Christian HospitalNmguaidkca84-48-4108Tlfysvhare statusPatient at [facility] Work Phone: Mental Status LihpXqqajkynemEervraYdcisdgm15-43-3036Nhzyfirby functionCognitive Status Patient at [facility]Western [facility] Work Phone: Clinical Notes 11-02-2020 to 01-10-2025 Note Date & LhxqFdqsVrsszzqg79-67-1929 History of Present illness Narrative* Xavier Robbins MD - 01/10/2025 10:30 AM EDT Images from the original note were not included. Patient ID: Leia Ewing is a 74 y.o. female who presents for: COPD He/She presents for evaluation and treatment of COPD. The patient is not currently have symptoms / an exacerbation. The patient has COPD for approximately several years. 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 Current treatment includes albuterol inhaler and albuterol nebulizer, which generally provides complete resolution of symptoms. The patient has not been hospitalized for this condition before. She has never smoked. Anxiety Patient is here for evaluation of anxiety. He/She has the following anxiety symptoms: racing thoughts. Onset of symptoms was approximately several years ago. Symptoms have been gradually improving since that time. He/She denies current suicidal and homicidal ideation. Family history significant forno psychiatric illness.Possible organic causes contributing are: none. Previous treatment includes medication Zoloft. He/She complains of the following medication side effects: none. Urinary Incontinence Patient complains of urinary incontinence. This has been present for several years. He/she leaks urine with bending, coughing, walking, laughing, exercise, with a full bladder. Factors associated with symptoms include none known. Evaluation to date includes none. Treatment to date includes oxybutinin, which was somewhat effective. She also states that over the last couple of days there has been a change in the odor in her urine and worsening of her incontinence and frequency. There some mild discomfort but she would not call apainful when urinating. This is similar to previous urinary tract infections. Unfortunately she is unable to give us a urine sample today as she just recently went to the bathroom when she 1st got to the building. Review of Systems Constitutional: Negative for appetite change and fatigue. Psychiatric/Behavioral: Positive for sleep disturbance. Negative for agitation, behavioral problemsand suicidal ideas. The patient is nervous/anxious. Objective The patient is pleasant and in no acute distress. She is sitting and navigating around the office in a wheelchair. The neck is supple and trachea is midline. No masses are appreciated. The heart is regular rate and rhythm without S3, S4. No murmur. The patient has normal respiratory pattern. The breath sounds are Diffusely decreased but symmetrical without evidence of rhonchi or rales. No wheezing. The skin is warm and dry. The lower extremities have trace to 1+ edema. The patient has good eye contact and speech is clear. Appropriate affect. 11/28/2024 2:12 PM 11/23/2024 9:25 AM 10/28/2024 11:09 AM 10/13/2024 4:14 PM Vitals BMI 37.8 kg/m2 37.8 kg/m2 37.8 kg/m2 35.15 kg/m2 BSA (m2) 2.38 m2 2.38 m2 2.38 m2 2.29 m2 Systolic 132 Diastolic 72 Heart Rate 87 SpO2 98 % Height (in) 5' 9 5' 9 5' 9 5' 9 Weight (lb) 256 256 256 238 Visit Report Report Report Report Report Allergies Allergen Reactions Azithromycin Swelling Reaction Date:hives Erythromycin Base Other Reaction(s): hives Molds & Smuts Other Reaction(s): Unknown Rlmae-Wpjhq-Rocqqhp-Pramoxine Other Reaction(s): rash,itching Nickel Rash Current Outpatient Medications on File Prior to Visit Medication Sig Dispense Refill albuterol (2.5 MG/3ML) 0.083% nebulizer solution Take 2.5 mg by nebulization every 6 (six) hours ifneeded. albuterol HFA 90 mcg/act inhaler Inhale 2 puffs in the morning and 2 puffs at noon and 2 puffs in the evening and 2 puffs before bedtime. Ascorbic Acid (Vitamin C) 500 MG capsule Take 1 capsule by mouth in the morning. aspirin 81 MG EC tablet Take 81 mg by mouth 2 (two) times a week atorvastatin (Lipitor) 80 MG tablet Take 1 tablet (80 mg) by mouth Daily 90 tablet 1 celecoxib (CeleBREX) 100 MG capsule Take 50 mg by mouth in the morning and 50 mg in the evening. Eliquis 5 MG tablet Take 5 mg by mouth in the morning and 5 mg before bedtime. gabapentin (Neurontin) 600 MG tablet Take 1 tablet (600 mg) by mouth at bedtime 90 tablet 1 losartan (Cozaar) 100 MG tablet Take 1 tablet (100 mg) by mouth Daily 90 tablet 1 magnesium oxide (Mag-Ox) 400 mg tablet 400 mg in the morning and 400 mg before bedtime. metoprolol succinate XL (Toprol-XL) 50 MG 24 hr tablet Take 0.5 tablets (25 mg) by mouth Daily 45 tablet 1 montelukast (Singulair) 10 MG tablet Take 1 tablet (10 mg) by mouth at bedtime 90 tablet 1 Multiple Vitamins-Minerals (Multivitamin Women 50+) tablet Take 1 tablet by mouth in the morning. nitroglycerin (Nitrostat) 0.[address] 0.4 mg under the tongue every 5 (five) minutes if needed for chest pain. omeprazole OTC (PriLOSEC OTC) 20 MG EC tablet Take 20 mg by mouth in the morning. Take before meals. Do not crush, chew, or split. . oxybutynin (Ditropan) 5 MG tablet Take 1 tablet (5 mg) by mouth in the morning and 1 tablet (5 mg) before bedtime. 180 tablet 1 sertraline (Zoloft) 100 MG tablet Take 1 tablet (100 mg) by mouth Daily 90 tablet 1 No current facility-administered medications on file prior to visit. 1. Simple chronic bronchitis (HCC) Chronic problem, stable, doing well. Renew prescription - montelukast (Singulair) 10 MG tablet; Take 1 tablet (10 mg) by mouth at bedtime Dispense: 90 tablet; Refill: 1 2. Mild intermittent asthma without complication (HCC) As above 3. Urge incontinence of urine Worsened see below cystitis note 4. Recurrent major depressive disorder, in partial remission Chronic problem, stable, doing well. Sleeping well. Renew prescription - sertraline (Zoloft) 100 MG tablet; Take 1 tablet (100 mg) by mouth Daily Dispense: 90 tablet; Refill: 1 5. Difficulty walking Chronic problem, stable she can get around in her home but when she is out and about she uses the wheelchair. 6. Morbid obesity due to excess calories ([facility]) Chronic problem that is stable monitor longitudinally 7. Acute cystitis without hematuria This is a clinical diagnosis today. In view of her previous symptomatology in her symptoms today weare going to go ahead and empirically treat new prescription encouraged increased water - cefuroxime (Ceftin) 250 MG tablet; Take 1 tablet (250 mg) by mouth in the morning and 1 tablet (250 mg) before bedtime. Do all this for 5 days. Dispense: 10 tablet; Refill: 0 8. Mixed hyperlipidemia Chronic problem, renew prescription - atorvastatin (Lipitor) 80 MG tablet; Take 1 tablet (80 mg) by mouth Daily Dispense: 90 tablet; Refill: 1 Please Note: Portions of this chart may have been created using voice recognition software. Occasionally a wrong-word or sound-like substitutions may have occurred due to inherent limitations of the voice recognition software. Please read the chart carefully and recognize, using context, where the substitutions may have occurred. documented in this encounterChristian HospitalFehpawlgiz96-46-3097 Radiology Diagnostic study noteMER[facility] Main [place] [address] [place], [place] [address] CT Scan Report Signed Patient: Leia Ewing MR#: [id number] : 1950 Acct:[id number] Age/Sex: 74 / F ADM Date: 5 Loc: CT Room: Type: [facility] Attending Dr: Skip Garcia II, MD Copies to: Skip Garcia MD~ Ordering Provider: Skip Garcia MD Date of Service: 12/22/24 CT/CT hip RT wo con: Z96.641 - Presence of right artificial hip joint CT right hip without contrast TECHNIQUE: The CT exam was performed using one or more the following dose reduction techniques: Automated exposure control, adjustment of the MA and/or Kvaccording to patient size, or use of the iterative reconstruction technique. COMPARISON: None HISTORY: Right hip pain. Bilateral hip arthroplasties adequate hardware. No hardware complication. Adequate bony alignment. No acute fracture. No acute bony findings. SI joint degenerative change. Minimal lateral heterotopicbone. Measures 3 cm. No fluid collections or hematoma. CT/CT hip RT wo con IMPRESSION: Uncomplicated right hip arthroplasty. No hardware failure. SI joint degenerative change. Impression dictated by: Teddy Boyd M.D. 12/22/2024 11:53 PM Dictation Location: [place] [address] Transcribed By: [facility] 12/22/24 2353 Dictated By: Teddy Boyd DO 12/22/24 2347 Signed By: 12/22/24 2353 [facility]08-11-2025 History of Present illness Narrative * Xavier Robbins MD - 11/28/2024 2:00 PM EDT Images from the original note were not included. Patient ID: Leia Ewing is a 74 y.o. female who presents for: Suture Removal Patient here for suture removal. She had tissue removal 13 days ago, which required closure with 7 sutures. She denies pain, redness, or drainage from the wound. Objective Left arm, wound healing well. Sutures intact, mild erythema around the sutures themselves. No evidence of infection. 11/23/2024 9:25 AM 10/28/2024 11:09 AM 10/13/2024 4:14 PM 08/23/2024 1:48 PM Vitals BMI 37.8 kg/m2 37.8 kg/m2 35.15 kg/m2 35.15 kg/m2 BSA (m2) 2.38 m2 2.38 m2 2.29 m2 2.29 m2 Systolic 132 Diastolic 72 Heart Rate 87 SpO2 98 % Height (in) 5' 9 5' 9 5' 9 5' 9 Weight (lb) 256 256 238 238 Visit Report Report Report Report Report Allergies Allergen Reactions Azithromycin Swelling Reaction Date:hives Erythromycin Base Other Reaction(s): hives Molds & Smuts Other Reaction(s): Unknown Soxyq-Teyaf-Gttfujn-Pramoxine Other Reaction(s): rash,itching Nickel Rash Current Outpatient Medications on File Prior to Visit Medication Sig Dispense Refill albuterol (2.5 MG/3ML) 0.083% nebulizer solution Take 2.5 mg by nebulization every 6 (six) hours ifneeded. albuterol HFA 90 mcg/act inhaler Inhale 2 puffs in the morning and 2 puffs at noon and 2 puffs in the evening and 2 puffs before bedtime. Ascorbic Acid (Vitamin C) 500 MG capsule Take 1 capsule by mouth in the morning. aspirin 81 MG EC tablet Take 81 mg by mouth 2 (two) times a week atorvastatin (Lipitor) 80 MG tablet Take 1 tablet (80 mg) by mouth Daily 90 tablet 1 celecoxib (CeleBREX) 100 MG capsule Take 50 mg by mouth in the morning and 50 mg in the evening. Eliquis 5 MG tablet Take 5 mg by mouth in the morning and 5 mg before bedtime. gabapentin (Neurontin) 600 MG tablet Take 1 tablet (600 mg) by mouth at bedtime 90 tablet 1 losartan (Cozaar) 100 MG tablet Take 1 tablet (100 mg) by mouth Daily 90 tablet 1 magnesium oxide (Mag-Ox) 400 mg tablet 400 mg in the morning and 400 mg before bedtime. metoprolol succinate XL (Toprol-XL) 50 MG 24 hr tablet Take 0.5 tablets (25 mg) by mouth Daily 45 tablet 1 montelukast (Singulair) 10 MG tablet Take 1 tablet (10 mg) by mouth at bedtime 90 tablet 1 Multiple Vitamins-Minerals (Multivitamin Women 50+) tablet Take 1 tablet by mouth in the morning. nitroglycerin (Nitrostat) 0.[address] 0.4 mg under the tongue every 5 (five) minutes if needed for chest pain. omeprazole OTC (PriLOSEC OTC) 20 MG EC tablet Take 20 mg by mouth in the morning. Take before meals. Do not crush, chew, or split. . oxybutynin (Ditropan) 5 MG tablet Take 1 tablet (5 mg) by mouth in the morning and 1 tablet (5 mg) before bedtime. 180 tablet 1 sertraline (Zoloft) 100 MG tablet Take 1 tablet (100 mg) by mouth Daily 90 tablet 1 [DISCONTINUED] atorvastatin (Lipitor) 80 MG tablet Take 1 tablet (80 mg) by mouth Daily 90 tablet 1 [DISCONTINUED] gabapentin (Neurontin) 600 MG tablet Take 1 tablet (600 mg) by mouth at bedtime 90 tablet 1 [DISCONTINUED] losartan (Cozaar) 100 MG tablet Take 1 tablet (100 mg) by mouth Daily 90 tablet 1 [DISCONTINUED] metoprolol succinate XL (Toprol-XL) 50 MG 24 hr tablet Take 0.5 tablets (25 mg) by mouth Daily 45 tablet 1 No current facility-administered medications on file prior to visit. 1. Visit for suture removal Sutures removed without difficulty. No evidence of wound dehiscence or infection. Scar care advised. Follow-up as needed. Please Note: Portions of this chart may have been created using voice recognition software. Occasionally a wrong-word or sound-like substitutions may have occurred due to inherent limitations of the voice recognition software. Please read the chart carefully and recognize, using context, where the substitutions may have occurred. documented in this encounterChristian HospitalIkyzlgljob76-12-0636 Evaluation note* Diagnosis Onset Date Resolution Status Admit Date Chronic hip pain after total replacement of right hip joint acuteAugust 2024 2:06pmHistory of total right hip arthroplastyacuteAugust 2024 2:06pm [facility] Work Phone: 1(164) 608-843008-06-2025 History of Present illness Narrative* Xavier Robbins MD - 11/23/2024 11:00 AM EDT Images from the original note were not included. Patient ID: Leia Ewing is a 74 y.o. female who presents for: Hypertension Patient is here for follow-up of elevated blood pressure. She is exercising and is adherent to a low-salt diet. Blood pressure is well controlled at home. Cardiac symptoms: none. Patient denies chestpain, dyspnea, irregular heart beat, lower extremity edema, and palpitations. Cardiovascular risk factors: advanced age (older than 55 for men, 65 for women), dyslipidemia, hypertension, and obesity (BMI >= 30 kg/m2). Use of agents associated with hypertension: none. History of target organ damage: chronic kidney disease. Hyperlipidemia Pt who presents for follow-up of dyslipidemia. A repeat fasting lipid profile was not done. The patient does not use medications that may worsen dyslipidemias (corticosteroids, progestins, anabolic steroids, diuretics, beta-blockers, amiodarone, cyclosporine, olanzapine). Exercise: daily. Restless leg syndrome: The patient presents for follow-up of restless leg syndrome, which was diagnosed years ago. The patient's last follow-up 6 months. The patient complains of excessive daytime sleepiness, occurring daily. Other symptoms include Medication(s) include Gabapentin Response to medication(s), has been good/not effective Review of Systems Constitutional: Negative for activity change and fatigue. Respiratory: Negative for cough, shortness of breath and wheezing. Cardiovascular: Negative for chest pain, palpitations and leg swelling. Neurological: Negative for light-headedness and headaches. Objective The patient is pleasant and in no acute distress. The neck is supple and trachea is midline. No masses are appreciated. The heart is regular rate and rhythm without S3, S4. No murmur. The patient has normal respiratory pattern. The breath sounds are symmetrical without evidence of rhonchi or rales. No wheezing. The skin is warm and dry. The lower extremities have trace edema. The patient has good eye contact and speech is clear. Appropriate affect. 11/28/2024 2:12 PM 11/23/2024 9:25 AM 10/28/2024 11:09 AM 10/13/2024 4:14 PM Vitals BMI 37.8 kg/m2 37.8 kg/m2 37.8 kg/m2 35.15 kg/m2 BSA (m2) 2.38 m2 2.38 m2 2.38 m2 2.29 m2 Systolic 132 Diastolic 72 Heart Rate 87 SpO2 98 % Height (in) 5' 9 5' 9 5' 9 5' 9 Weight (lb) 256 256 256 238 Visit Report Report Report Report Report Allergies Allergen Reactions Azithromycin Swelling Reaction Date:hives Erythromycin Base Other Reaction(s): hives Molds & Smuts Other Reaction(s): Unknown Igwgo-Embje-Qmkvtjh-Pramoxine Other Reaction(s): rash,itching Nickel Rash Current Outpatient Medications on File Prior to Visit Medication Sig Dispense Refill albuterol (2.5 MG/3ML) 0.083% nebulizer solution Take 2.5 mg by nebulization every 6 (six) hours ifneeded. albuterol HFA 90 mcg/act inhaler Inhale 2 puffs in the morning and 2 puffs at noon and 2 puffs in the evening and 2 puffs before bedtime. Ascorbic Acid (Vitamin C) 500 MG capsule Take 1 capsule by mouth in the morning. aspirin 81 MG EC tablet Take 81 mg by mouth 2 (two) times a week celecoxib (CeleBREX) 100 MG capsule Take 50 mg by mouth in the morning and 50 mg in the evening. Eliquis 5 MG tablet Take 5 mg by mouth in the morning and 5 mg before bedtime. magnesium oxide (Mag-Ox) 400 mg tablet 400 mg in the morning and 400 mg before bedtime. montelukast (Singulair) 10 MG tablet Take 1 tablet (10 mg) by mouth at bedtime 90 tablet 1 Multiple Vitamins-Minerals (Multivitamin Women 50+) tablet Take 1 tablet by mouth in the morning. nitroglycerin (Nitrostat) 0.[address] 0.4 mg under the tongue every 5 (five) minutes if needed for chest pain. omeprazole OTC (PriLOSEC OTC) 20 MG EC tablet Take 20 mg by mouth in the morning. Take before meals. Do not crush, chew, or split. . oxybutynin (Ditropan) 5 MG tablet Take 1 tablet (5 mg) by mouth in the morning and 1 tablet (5 mg) before bedtime. 180 tablet 1 sertraline (Zoloft) 100 MG tablet Take 1 tablet (100 mg) by mouth Daily 90 tablet 1 No current facility-administered medications on file prior to visit. Orders Only on 11/23/2024 Component Date Value Ref Range Status AST 11/23/2024 14 10 - 35 U/L Final ALT 11/23/2024 13 6 - 29 U/L Final CHOLESTEROL, TOTAL 11/23/2024 165 <200 mg/dL Final HDL CHOLESTEROL 11/23/2024 66 > OR = 50 mg/dL Final TRIGLYCERIDES 11/23/2024 132 <150 mg/dL Final LDL CHOLESTEROL 11/23/2024 77 mg/dL (calc) Final Comment: Reference range: <100 Desirable range <100 mg/dL for primary prevention; <70 mg/dL for patients with CHD or diabetic patients with > or = 2 CHD risk factors. LDL-C is now calculated using the PhilipJackson calculation, which is a validated novel method providing better accuracy than the Friedewald equation in the estimation of LDL-C. Robert WHITTAKER et al. ALEC. 2013;310(19): 2757-8872 (http://education.[employer]/faq/VDX479) CHOL/HDLC RATIO 11/23/2024 2.5 <5.0 (calc) Final NON HDL CHOLESTEROL 11/23/2024 99 <130 mg/dL (calc) Final Comment: For patients with diabetes plus 1 major ASCVD risk factor, treating to a non-HDL-C goal of <100 mg/dL (LDL-C of <70 mg/dL) is considered a therapeutic option. 1. Benign essential hypertension Chronic problem, stable, to goal Refill prescriptions - losartan (Cozaar) 100 MG tablet; Take 1 tablet (100 mg) by mouth Daily Dispense: 90 tablet; Refill: 1 - metoprolol succinate XL (Toprol-XL) 50 MG 24 hr tablet; Take 0.5 tablets (25 mg) by mouth Daily Dispense: 45 tablet; Refill: 1 2. Hypertensive nephropathy Chronic problem, encouraged continued good blood pressure control. Stay hydrated. Consider chair exercises to stay active. 3. Stage 3a chronic kidney disease ([facility]) Continue to monitor longitudinally 4. Microalbuminuria Chronic problem, defining an aspect the nephropathy, with significant risk, uncertain progression requiring longitudinal monitoring, and moderate decision making. Microalbuminuria describes a moderate increase in the level of urine albumin. Normally, the kidneysfilter albumin, so if the kidney leaks small amounts of albumin into the urine then it is a indicator of chronic kidney disease. Microalbuminuria is an independent indicator of increased cardiovascular risk among individuals andtherefore can be used for risk stratification for cardiovascular disease. 5. Mixed hyperlipidemia Chronic problem, stable, to goal and normal liver enzymes. - atorvastatin (Lipitor) 80 MG tablet; Take 1 tablet (80 mg) by mouth Daily Dispense: 90 tablet; Refill: 1 6. Restless leg syndrome Chronic problem that per the patient is stable and doing well. Cross treated with the gabapentin. 7. Difficulty walking Chronic problem, stable 8. Uses roller walker Chronic problem, stable 9. Chronic pain syndrome Chronic problem, stable, multifactorial, with complex decision making. The patient presents for re-evaluation of their chronic pain syndrome and treatment recommendations. They note, that the pain is still present but under reasonable control with home therapies and medications. They state that they are taking their medications compliantly and perceiving a benefit specifically from these medications. They deny any significant side effects from the medications themselves. The treatment program enables them to continue their activities of daily living. - gabapentin (Neurontin) 600 MG tablet; Take 1 tablet (600 mg) by mouth at bedtime Dispense: 90 tablet; Refill: 1 Please Note: Portions of this chart may have been created using voice recognition software. Occasionally a wrong-word or sound-like substitutions may have occurred due to inherent limitations of the voice recognition software. Please read the chart carefully and recognize, using context, where the substitutions may have occurred. documented in this encounterChristian [id number] History of Present illness Narrative* Xavier Robbins MD - 11/15/2024 11:00 AM EDT Images from the original note were not included. Patient ID: Leia Ewing is a 74 y.o. female who presents for: Pt has a lesion on her left upper arm which is non-healing and changing in size and coloring. She is going to have this excised today for biopsy. Pt did have a fall today. She was getting into the car to come to the office and had fallen/trippedover a lump of grass. She has some redness on the left side of her face, her neck, her left arm andher left leg. Objective 1St turned my attention to a quick exam because of the fall. There were no significant abrasions. All 4 extremities work as well as I remember them to work and have full range of motion without pain. We next turned our attention to the lesion on the left Upper arm, lateral aspect. It is approximately 1.6x1.2 cm in diameter. It is inflamed around the edges. It has a raised borderwith a proximally a half a cm dimple in the center. There are black pigmented points scattered throughout the center. 10/28/2024 11:09 AM 10/13/2024 4:14 PM 08/23/2024 1:48 PM 07/19/2024 2:04 PM Vitals BMI 37.8 kg/m2 35.15 kg/m2 35.15 kg/m2 35.15 kg/m2 BSA (m2) 2.38 m2 2.29 m2 2.29 m2 2.29 m2 Height (in) 5' 9 5' 9 5' 9 5' 9 Weight (lb) 256 238 238 238 Visit Report Report Report Report Report Allergies Allergen Reactions Azithromycin Swelling Reaction Date:hives Erythromycin Base Other Reaction(s): hives Molds & Smuts Other Reaction(s): Unknown Yntia-Qtwjv-Ebqalka-Pramoxine Other Reaction(s): rash,itching Nickel Rash 1. Neoplasm of uncertain behavior (Primary) We again had a discussion and she is desirous both to ensure this not a cancerous lesion which I can not exclude from looking at it, and that it is irritating her, causing her worry, and ugly. We have discussed this previously and she is sure she would like it excised. We discussed the options of a punch biopsy simply for diagnosis versus an excisional biopsy and shewould prefer the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 tablet 1 celecoxib (CeleBREX) 100 MG capsule Take 50 mg by mouth in the morning and 50 mg in the evening. Eliquis 5 MG tablet Take 5 mg by mouth in the morning and 5 mg before bedtime. gabapentin (Neurontin) 600 MG tablet Take 1 tablet (600 mg) by mouth at bedtime 90 tablet 1 losartan (Cozaar) 100 MG tablet Take 1 tablet (100 mg) by mouth Daily 90 tablet 1 magnesium oxide (Mag-Ox) 400 mg tablet 400 mg in the morning and 400 mg before bedtime. metoprolol succinate XL (Toprol-XL) 50 MG 24 hr tablet Take 0.5 tablets (25 mg) by mouth Daily 45 tablet 1 montelukast (Singulair) 10 MG tablet Take 1 tablet (10 mg) by mouth at bedtime 90 tablet 0 Multiple Vitamins-Minerals (Multivitamin Women 50+) tablet Take 1 tablet by mouth in the morning. nitroglycerin (Nitrostat) 0.[address] 0.4 mg under the tongue every 5 (five) minutes if needed for chest pain. omeprazole OTC (PriLOSEC OTC) 20 MG EC tablet Take 20 mg by mouth in the morning. Take before meals. Do not crush, chew, or split. . oxybutynin (Ditropan) 5 MG tablet Take 1 tablet (5 mg) by mouth in the morning and 1 tablet (5 mg) before bedtime. 180 tablet 0 sertraline (Zoloft) 100 MG tablet Take 1 tablet (100 mg) by mouth Daily 90 tablet 0 No current facility-administered medications on file prior to visit. 1. Benign essential hypertension (CMS/HCC) Chronic problem, stable, to goal. In prescribing a renewal to their current medication, consideration of the following encompasses moderate decision making; the current prescriptions and supplements, the current allergies and medication intolerances, current medical conditions, and potential drug interactions. Any changes to risks, benefits, and reason for renewing their current medication due to the above were discussed. The patient was given a chance to ask questions today and all questions were answered. The patient is to contact us if any other questions arise or if any problems occur. (Utilizing the original 1994/1996 guidelines or the 2020 office/outpatient code guidelines for selecting the level of E/M service, In both sets of guidelines, prescription drug management appears in the moderate medical decision making (MDM) row. Neither the original guidelines nor the new guidelines state that a new prescription or change is needed in order to credit prescription drug management) - Comprehensive metabolic panel; Future - losartan (Cozaar) 100 MG tablet; Take 1 tablet (100 mg) by mouth Daily Dispense: 90 tablet; Refill: 1 - metoprolol succinate XL (Toprol-XL) 50 MG 24 hr tablet; Take 0.5 tablets (25 mg) by mouth Daily Dispense: 45 tablet; Refill: 1 - Comprehensive metabolic panel 2. Hypertensive nephropathy (CMS/HCC) - Comprehensive metabolic panel; Future - Comprehensive metabolic panel 3. Stage 3a chronic kidney disease (HCC) (CMS/HCC) - Comprehensive metabolic panel; Future - Comprehensive metabolic panel 4. Microalbuminuria Chronic problem, defining an aspect the nephropathy, with significant risk, uncertain progression requiring longitudinal monitoring, and moderate decision making. Microalbuminuria describes a moderate increase in the level of urine albumin. Normally, the kidneysfilter albumin, so if the kidney leaks small amounts of albumin into the urine then it is a indicator of chronic kidney disease. Microalbuminuria is an independent indicator of increased cardiovascular risk among individuals andtherefore can be used for risk stratification for cardiovascular disease. 5. Mixed hyperlipidemia (CMS/[facility]) - Lipid panel; Future - atorvastatin (Lipitor) 80 MG tablet; Take 1 tablet (80 mg) by mouth Daily Dispense: 90 tablet; Refill: 1 - Lipid panel 6. Paroxysmal atrial fibrillation (CMS/HCC) Chronic problem, stable, anticoagulated. Otherwise asymptomatic. 7. 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 Restless leg syndrome Chronic problem that is stable. She is still mildly symptomatic in the evening. She is cross treated with the gabapentin. With a polypharmacy we have mutually agreed not to add further medications. 9. Chronic pain syndrome Chronic problem, stable, multifactorial, with complex decision making. The patient presents for re-evaluation of their chronic pain syndrome and treatment recommendations. They note, that the pain is still present but under reasonable control with home therapies and medications. They state that they are taking their medications compliantly and perceiving a benefit specifically from these medications. They deny any significant side effects from the medications themselves. The treatment program enables them to continue their activities of daily living. - gabapentin (Neurontin) 600 MG tablet; Take 1 tablet (600 mg) by mouth at bedtime Dispense: 90 tablet; Refill: 1 10. Urge incontinence of urine Chronic problem that is stable but still an inconvenience. Patient has minimal side effects from the medication and prefers to stay on it. - oxybutynin (Ditropan) 5 MG tablet; Take 1 tablet (5 mg) by mouth in the morning and 1 tablet (5 mg) before bedtime. Dispense: 180 tablet; Refill: 1 11. Simple chronic bronchitis (CMS/HCC) Chronic problem, stable, renew Singulair. Patient has plenty of albuterol. - montelukast (Singulair) 10 MG tablet; Take 1 tablet (10 mg) by mouth at bedtime Dispense: 90 tablet; Refill: 1 Chronic problem The patient meets the criteria for polypharmacy; 5 or more prescriptions or multi-morbidity definedas 5 or more diagnoses. Polypharmacy can significantly increase the risk of preventable adverse drug events and negatively impact adherence. Consideration of diverse factors such as clinician agreement, patient perspective,and de-prescribing, as appropriate can improve patient outcomes while simplifying care. This requires longitudinal monitoring as there is at least a moderate risk of morbidity and requires at least amoderate degree of evaluation and management. documented in this encounterChristian [id number] History of Present illness Narrative* Gama Canales, DO - 04/01/2024 10:50 AM EST Subjective Leia Ewing is a 73 y.o. female Chief Complaint Annual Exam 73-year-old female returns for 6-month follow-up and she is doing well she denies any cardiovascular events or complaints or nitrate usage. She has had no recurrent hospitalizations other than for UTI last spring this was associated with episode of atrial fibrillation for which she was placed on apixaban. She has had no clinical recurrence of A-fib. She has a history of STEMI in February [address] Grossman with PCI of the OM 3 branch. At the time LV function was mildly impaired. She has had no clinical recurrence of ACS or heart failure events Recommendations, follow-up again in 1 year on same therapies Review of Systems All other systems reviewed and are negative. Vitals: 04/01/24 1051 BP: 120/72 BP Location: Right arm Patient Position: Sitting Pulse: 80 Weight: 111 kg (244 lb 3.2 oz) Height: 1.753 m (5' 9 ) Objective Physical Exam Constitutional: Appearance: Normal appearance. HENT: Nose: Nose normal. Neck: Vascular: No carotid bruit. Cardiovascular: Rate and Rhythm: Normal rate. Pulses: Normal pulses. Heart sounds: Normal heart sounds. Pulmonary: Effort: Pulmonary effort is normal. Abdominal: General: Bowel sounds are normal. Palpations: Abdomen is soft. Musculoskeletal: General: Normal range of motion. Cervical back: Normal range of motion. Right lower leg: No edema. Left lower leg: No edema. Skin: General: Skin is warm and dry. Neurological: General: No focal deficit present. Mental Status: She is alert. Psychiatric: Mood and Affect: Mood normal. Behavior: Behavior normal. Thought Content: Thought content normal. Judgment: Judgment normal. Allergies Azithromycin, Nickel, and Erythromycin Current Medications Current Outpatient Medications: albuterol 90 mcg/actuation inhaler, Inhale 1 puff every 4 hours if needed., Disp: , Rfl: apixaban (Eliquis) 5 mg tablet, Take 1 tablet (5 mg) by mouth 2 times a day. LOT [id number] EXP DEC 2024 28 TABS, Disp: 180 tablet, Rfl: 3 ascorbic acid (Vitamin C) 500 mg tablet, Take 1 tablet (500 mg) by mouth once daily., Disp: , Rfl: aspirin 81 mg chewable tablet, Take one tablet by mouth twice a week, Disp: 30 tablet, Rfl: 11 atorvastatin (Lipitor) 80 mg tablet, Take 1 tablet (80 mg) by mouth once daily., Disp: , Rfl: diclofenac (Voltaren) 25 mg EC tablet, Take 1 tablet (25 mg) by mouth if needed (joint pain). Do not crush, chew, or split., Disp: , Rfl: gabapentin (Neurontin) 600 mg tablet, Take 1 tablet (600 mg) by mouth once daily at bedtime., Disp:, Rfl: losartan (Cozaar) 100 mg tablet, Take 1 tablet (100 mg) by mouth once daily., Disp: , Rfl: magnesium oxide (Mag-Ox) 400 mg tablet, Take 1 tablet (400 mg) by mouth once daily., Disp: , Rfl: metoprolol succinate XL (Toprol-XL) 25 mg 24 hr tablet, Take 1 tablet (25 mg) by mouth once daily. Do not crush or chew., Disp: , Rfl: montelukast (Singulair) 10 mg [...] 911 IF PAIN PERSISTS., Disp: , Rfl: omeprazole (PriLOSEC) [address] capsule, Take 1 capsule (40 mg) by mouth once daily in the morning. Take before meals., Disp: , Rfl: oxybutynin (Ditropan) 5 mg tablet, Take 1 tablet (5 mg) by mouth 2 times a day., Disp: , Rfl: sertraline (Zoloft) 100 mg tablet, Take 1 tablet (100 mg) by mouth once daily., Disp: , Rfl: traMADol (Ultram) 50 mg tablet, Take 1 tablet (50 mg) by mouth every 6 hours if needed for severe pain (7 - 10)., Disp: , Rfl: Assessment/Plan 1. ASHD (arteriosclerotic heart disease) Follow Up In Cardiology 2. History of myocardial infarction Follow Up In Cardiology 3. History of percutaneous coronary intervention 4. Paroxysmal atrial fibrillation (Multi) 5. Status post insertion of drug eluting coronary artery stent Follow Up In Cardiology 6. Mixed hyperlipidemia 7. Primary hypertension 8. SOB (shortness of breath) on exertion 9. Cardiomyopathy, ischemic 10. MCFP current use of anticoagulant therapy 11. Class 2 obesity due to excess calories with body mass index (BMI) of 36.0 to 36.9 in adult, unspecified whether serious comorbidity present 12. Never smoked tobacco Scribe Attestation By signing my name below, IDanna RN , Scribe attest that this documentation has been prepared under the direction and in the presence of Andrew Canales DO. Provider Attestation - Scribe documentation All medical record entries made by the Scribe were at my direction and personally dictated by me. Ihave reviewed the chart and agree that the record accurately reflects my personal performance of the history, physical exam, discussion and plan. documented in this encounterC[facility] Work Phone: [phone] 275-959812-13-2024 Instructions* Patient Instructions* Danna Womack RN - 04/01/2024 10:50 AM EST Please bring all medicines, vitamins, and herbal supplements with you when you come to the office. Prescriptions will not be filled unless you are compliant with your follow up appointments or have a follow up appointment scheduled as per instruction of your physician. Refills should be requested at the time of your visit. BMI was above normal measurement. Current weight: 111 kg (244 lb 3.2 oz) Weight change since last visit (-) denotes wt loss 8.2 lbs Weight loss needed to achieve BMI 25: 75.3 Lbs Weight loss needed to achieve BMI 30: 41.5 Lbs Provided instructions on dietary changes Provided instructions on exercise. documented in this [facility] Work Phone: [phone] 106-122611-12-2024 History of Present illness Narrative* Xavier Robbins MD - 03/01/2024 3:00 PM EST Images from the original note were not included. Subjective : Chief Complaint: Leia Ewing is an 73 y.o. female here for an annual wellness visit. I have reviewed and reconciled the history and medication list with the patient today. Current Outpatient Medications Medication Sig Dispense Refill albuterol (2.5 MG/3ML) 0.083% nebulizer solution Take 2.5 mg by nebulization every 6 (six) hours ifneeded. albuterol HFA 90 mcg/act inhaler Inhale 2 puffs in the morning and 2 puffs at noon and 2 puffs in the evening and 2 puffs before bedtime. Ascorbic Acid (Vitamin C) 500 MG capsule Take 1 capsule by mouth in the morning. atorvastatin (Lipitor) 80 MG tablet Take 1 tablet (80 mg) by mouth Daily 90 tablet 1 celecoxib (CeleBREX) 100 MG capsule Take 50 mg by mouth in the morning and 50 mg in the evening. Eliquis 5 MG tablet Take 5 mg by mouth in the morning and 5 mg before bedtime. gabapentin (Neurontin) 600 MG tablet Take 1 tablet (600 mg) by mouth at bedtime 90 tablet 1 losartan (Cozaar) 100 MG tablet Take 1 tablet (100 mg) by mouth Daily 90 tablet 1 magnesium oxide (Mag-Ox) 400 mg tablet 400 mg in the morning and 400 mg before bedtime. metoprolol succinate XL (Toprol-XL) 50 MG 24 hr tablet Take 0.5 tablets (25 mg) by mouth Daily 45 tablet 1 montelukast (Singulair) 10 MG tablet Take 1 tablet (10 mg) by mouth at bedtime 90 tablet 1 Multiple Vitamins-Minerals (Multivitamin Women 50+) tablet Take 1 tablet by mouth in the morning. nitroglycerin (Nitrostat) 0.[address] 0.4 mg under the tongue every 5 (five) minutes if needed for chest pain. omeprazole OTC (PriLOSEC OTC) 20 MG EC tablet Take 20 mg by mouth in the morning. Take before meals. Do not crush, chew, or split. . oxybutynin (Ditropan) 5 MG tablet Take 5 mg by mouth in the morning and 5 mg before bedtime. sertraline (Zoloft) 100 MG tablet Take 1 tablet (100 mg) by mouth Daily 90 tablet 1 No current facility-administered medications for this visit. Review of Systems unremarkable except as mentioned. List of current healthcare providers: Patient Care Team: Xavier Robbins MD as PCP - General (Family Medicine) Xavier Robbins MD as PCP - Devoted Alberto Canales MD as Referring Physician (Cardiology) Dilia Kilpatrick RN as Registered Nurse (Family Medicine) Tonny Dez Medicare Annual Visit Health Risk Assessment Form Do you need help eating, bathing, using the toilet, dressing, or getting around your home?: No Can you prepare your own meals?: Yes Can you do your own housework without help?: Yes Can you shop for groceries or clothes without help?: Yes Do you exercise for about 20 minutes 3 or more days a week?: No How confident are you that you can control and manage most of your health problems?: Very confident Can you mange your money, credit cards and accounts, pay bills and taxes?: Yes Vision Screening: Yes, 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 Physical Exam The patient is pleasant and in no acute distress. The head is normocephalic and atraumatic. Both eyes appear grossly normal without obvious lid pathology or icterus. Both ears hearing is grossly intact. The neck is supple and trachea is midline. No masses are appreciated. The anterior cervical lymphatics demonstrates shoddy bilateral nontender lymphadenopathy. There is no supraclavicular lymphadenopathy. The heart is regular rate and rhythm without S3, S4. No murmur. ( Surprisingly regular for her) The patient has normal respiratory pattern. The breath sounds are Diffusely decreased but symmetrical without evidence of rhonchi or rales. No wheezing. The skin is warm and dry. The lower extremities have trace edema. Neurologic screening exam is nonfocal. The patient is alert. There is no overt gross evidence of cognitive impairment The patient has good eye contact and speech is clear. Appropriate affect. Assessment/Plan : The following health maintenance schedule was reviewed with the patient and provided in printed form in the after visit summary: Health Maintenance Topic Date Due Medicare Annual Wellness (AWV) 03/09/2024 Pneumococcal Vaccine: 65+ Years (2 of 2 - PCV) 03/21/2024 (Originally 09/22/2019) Colorectal Cancer Screening 01/17/2027 Influenza Vaccine Completed Mammogram Discontinued 1. Encounter for Medicare annual wellness exam (Primary) The patient is here for their Annual Medicare Wellness visit. Demographics were updated. Self-assessment was completed and reviewed. Past medical, family, and social history were updated. The medication list updated and reviewed by the doctor. A list of other current medical providers is established and updated. Time was spent discussing health maintenance issues, ordering testing as appropriate,and a schedule was reviewed regarding recommended screening. We discussed safety issues and fall risk. Depression screening was completed and addressed as appropriate. Fall screening was completed and addressed. Cognitive function was assessed by direct observation, cognitive screening as indicated, and assessment of ability to perform ADL's. The BMI and discussed. Major risk factors for chronic disease including family history were discussed. An after visit summary is made available to the patient 2. Advance directive in chart No changes to advanced directives 3. Encounter for screening for other disorder Clinically insignificant depression screen, although under treatment. 4. Screening for alcohol problem Negative alcohol screen 5. Morbid obesity due to excess calories ([facility]) Chronic problem which is overall stable. She has limited exercise capabilities. 6. Hemiparesis of left nondominant side due to non-cerebrovascular etiology (CMS/HCC) This is a chronic problem that appears to be mostly musculoskeletal. There was some question a stroke in the medical record but I can find no documentation of that. The patient denies ever having a stroke. She has a little more left-sided arm weakness than the right. The left leg is rather weak butcertainly she has an abnormal appearing knee which is got significant arthritic changes. 7. Uses roller walker Due to hemiparesis 8. Simple chronic bronchitis (CMS/HCC) Chronic problem, stable, monitored longitudinally. 9. Mild intermittent asthma without complication (CMS/HCC) Chronic problem, stable, monitored longitudinally. 10. Coronary artery disease involving platinum coronary artery of platinum heart without angina pectoris (CMS/HCC) Chronic problem, stable, monitored longitudinally. No evidence of angina or anginal equivalents. 11. History of heart attack (CMS/HCC) She would survive this. At the time she had some ischemic cardiomyopathy from recent echocardiogramhas resolved. 12. Benign essential hypertension (CMS/HCC) Chronic problem, stable, monitored longitudinally. 13. Hypertensive nephropathy (CMS/HCC) Chronic problem, stable, monitored longitudinally. 14. Stage 3a chronic kidney disease (HCC) (CMS/HCC) Chronic problem, stable, monitored longitudinally. 15. Mixed hyperlipidemia (CMS/HCC) Chronic problem, stable, monitored longitudinally. 16. Recurrent major depressive disorder, in partial remission (HCC) (CMS/HCC) Chronic problem, stable, monitored longitudinally. 17. Atrial fibrillation, paroxysmal. Continue antithrombotic and medical treatment. Comanaged with Cardiology. Electronically signed by Xavier Robbins MD on March 01, 2024 documented in this encounterChristian [id number] History of Present illness Narrative* Xavier Robbins MD - 12/09/2023 11:30 AM EDT Images from the original note were not included. Patient ID: Leia Ewing is a 73 y.o. female who presents for: Hypertension Patient is here for follow-up of elevated blood pressure. She is exercising and is adherent to a low-salt diet. Blood pressure is well controlled at home. Cardiac symptoms: none. Patient denies chestpain, irregular heart beat, lower extremity edema, and palpitations. Cardiovascular risk factors: dyslipidemia, hypertension, obesity (BMI >= 30 kg/m2), and sedentary lifestyle. Use of agents associated with hypertension: none. History of target organ damage: none. Hyperlipidemia Pt who presents for follow-up of dyslipidemia. A repeat fasting lipid profile was done. The patientdoes not use medications that may worsen dyslipidemias (corticosteroids, progestins, anabolic steroids, diuretics, beta-blockers, amiodarone, cyclosporine, olanzapine). Exercise: daily. Restless leg syndrome: The patient presents for follow-up of restless leg syndrome, which was diagnosed years ago. The patient's last follow-up 6 months. The patient complains of excessive daytime sleepiness, occurring daily. The patient complains of leg sensation(s), beginning years ago, daily, wakes during night Other symptoms includeanxiety , drowsiness , extreme fatigue , joint pain , poor concentration. Medication(s) include Response to medication(s), has been good/not effective Review of Systems Constitutional: Negative for activity change and fatigue. Respiratory: Negative for cough, shortness of breath and wheezing. Cardiovascular: Negative for chest pain, palpitations and leg swelling. Neurological: Negative for light-headedness and headaches. Objective The patient is pleasant and in no acute distress. Her hearing aids are out for repair but she can hear me with an elevated voice. The neck is supple and trachea is midline. No masses are appreciated. The heart is regular rate and rhythm without S3, S4. No murmur. The patient has normal respiratory pattern. The breath sounds are symmetrical without evidence of rhonchi or rales. No wheezing. The skin is warm and dry. The lower extremities have trace edema. The patient has good eye contact and speech is clear. Appropriate affect. Visit Vitals BP 120/72 Pulse 85 Ht 5' 9 Wt 238 lb SpO2 97% BMI 35.15 kg/m OB Status Hysterectomy Smoking Status Never BSA 2.29 m Office Visit on 08/04/2023 Component Date Value Ref Range Status Glucose 11/25/2023 112 (H) 65 - 99 mg/dL Final Comment: Fasting reference interval For someone without known diabetes, a glucose value between 100 and 125 mg/dL is consistent with prediabetes and should be confirmed with a follow-up test. BUN 11/25/2023 23 7 - 25 mg/dL Final Creatinine 11/25/2023 1.12 (H) 0.60 - 1.00 mg/dL Final EGFR 11/25/2023 51 (L) > OR = 60 mL/min/1.73m2 Final BUN/CREATININE RATIO 11/25/2023 21 6 - 22 (calc) Final Sodium 11/25/2023 141 135 - 146 mmol/L Final Potassium, Bld 11/25/2023 4.7 3.5 - 5.3 mmol/L Final Chloride 11/25/2023 105 98 - 110 mmol/L Final Carbon Dioxide 11/25/2023 29 20 - 32 mmol/L Final Calcium 11/25/2023 9.5 8.6 - 10.4 mg/dL Final Clinisync Result Encounter on 07/19/2023 Component Date Value Ref Range Status BLOOD CULTURE 1 07/19/2023 Final Value: Blood Culture 1 NG5D NO GROWTH AT 5 DAYS.^NO GROWTH AT 5 DAYS. BLOOD CULTURE 2 07/19/2023 Final Value: Blood Culture 2 NG5D NO GROWTH AT 5 DAYS.^NO GROWTH AT 5 DAYS. Clinisync Result Encounter on 07/12/2023 Component Date Value Ref Range Status TBH CULTURE URINE 07/19/2023 Final Value: O:KLEPNE Isolated TBH CULTURE URINE 07/19/2023 Final Value: Urine Culture Bowden Count TBH CULTURE URINE 07/19/2023 >100,000 CFU/ml Final TBH CULTURE URINE 07/19/2023 Final Value: Organism: 1.1 Antibiotic Interpretation MARITZA Status TBH CULTURE URINE 07/19/2023 Amikacin S <=2 F (S) Final TBH CULTURE URINE 07/19/2023 Ampicillin R F (R) Final TBH CULTURE URINE 07/19/2023 Ampicillin/Sulbactam S 4 F (S) Final TBH CULTURE URINE 07/19/2023 Cefazolin S <=4 F (S) Final TBH CULTURE URINE 07/19/2023 Ceftazidime S <=1 F (S) Final TBH CULTURE URINE 07/19/2023 Ceftriaxone S <=1 F (S) Final TBH CULTURE URINE 07/19/2023 Ciprofloxacin S <=0.25 F (S) Final TBH CULTURE URINE 07/19/2023 Ertapenem S <=0.5 F (S) Final TBH CULTURE URINE 07/19/2023 Gentamicin S <=1 F (S) Final TBH CULTURE URINE 07/19/2023 Imipenem S <=0.25 F (S) Final TBH CULTURE URINE 07/19/2023 Levofloxacin S 1 F (S) Final TBH CULTURE URINE 07/19/2023 Nitrofurantoin R F (R) Final TBH CULTURE URINE 07/19/2023 Tobramycin S <=1 F (S) Final TBH CULTURE URINE 07/19/2023 Trimethoprim/Sulfamethoxazole S <=20 F (S) Final TBH CULTURE URINE 07/19/2023 Piperacillin/Tazobactam S 8 F (S) Final Office Visit on 06/16/2023 Component Date Value Ref Range Status Glucose 11/25/2023 115 (H) 65 - 99 mg/dL Final Comment: Fasting reference interval For someone without known diabetes, a glucose value between 100 and 125 mg/dL is consistent with prediabetes and should be confirmed with a follow-up test. BUN 11/25/2023 24 7 - 25 mg/dL Final Creatinine 11/25/2023 1.17 (H) 0.60 - 1.00 mg/dL Final EGFR 11/25/2023 49 (L) > OR = 60 mL/min/1.73m2 Final BUN/CREATININE RATIO 11/25/2023 21 6 - 22 (calc) Final Sodium 11/25/2023 143 135 - 146 mmol/L Final Potassium, Bld 11/25/2023 5.2 3.5 - 5.3 mmol/L Final Chloride 11/25/2023 107 98 - 110 mmol/L Final Carbon Dioxide 11/25/2023 28 20 - 32 mmol/L Final Calcium 11/25/2023 9.8 8.6 - 10.4 mg/dL Final PROTEIN, TOTAL 11/25/2023 6.8 6.1 - 8.1 g/dL Final ALBUMIN 11/25/2023 4.2 3.6 - 5.1 g/dL Final GLOBULIN 11/25/2023 2.6 1.9 - 3.7 g/dL (calc) Final ALBUMIN/GLOBULIN RATIO 11/25/2023 1.6 1.0 - 2.5 (calc) Final BILIRUBIN, TOTAL 11/25/2023 0.6 0.2 - 1.2 mg/dL Final ALKALINE PHOSPHATASE 11/25/2023 104 37 - 153 U/L Final AST 11/25/2023 13 10 - 35 U/L Final ALT 11/25/2023 13 6 - 29 U/L Final CHOLESTEROL, TOTAL 11/25/2023 162 <200 mg/dL Final HDL CHOLESTEROL 11/25/2023 56 > OR = 50 mg/dL Final TRIGLYCERIDES 11/25/2023 104 <150 mg/dL Final LDL-CHOLESTEROL 11/25/2023 86 mg/dL (calc) Final Comment: Reference range: <100 Desirable range <100 mg/dL for primary prevention; <70 mg/dL for patients with CHD or diabetic patients with > or = 2 CHD risk factors. LDL-C is now calculated using the Yojana calculation, which is a validated novel method providing better accuracy than the Friedewald equation in the estimation of LDL-C. Robert WHITTAKER et al. ALEC. 2013;310(19): 1991-2943 (http://education.[employer]/faq/ZIZ265) CHOL/HDLC RATIO 11/25/2023 2.9 <5.0 (calc) Final NON HDL CHOLESTEROL 11/25/2023 106 <130 mg/dL (calc) Final Comment: For patients with diabetes plus 1 major ASCVD risk factor, treating to a non-HDL-C goal of <100 mg/dL (LDL-C of <70 mg/dL) is considered a therapeutic option. Hemoglobin A1C 11/25/2023 6.0 (H) <5.7 % of total Hgb Final Comment: For someone without known diabetes, a hemoglobin A1c value between 5.7% and 6.4% is consistent with prediabetes and should be confirmed with a follow-up test. For someone with known diabetes, a value <7% indicates that their diabetes is well controlled. A1c targets should be individualized based on duration of diabetes, age, comorbid conditions, and other considerations. This assay result is consistent with an increased risk of diabetes. Currently, no consensus exists regarding use of hemoglobin A1c for diagnosis of diabetes for children. This test was performed on the [employer]ik c503 platform. Effective 04/06/23, a change in test platforms from the [employer] to the Ivan maik c503 may have shifted HbA1c results compared to historical results. Based on laboratory validation testing conducted at [facility], the Ivan platform relative to the [employer] platform had an average increase in HbA1c value of < or = 0.3%. This difference is within accepted variability established by the National Glycohemoglobin Standardization Program. Note that not all individuals will have had a shift in their results and direct comparisons between historical and current results for testing conducted on different platforms is not recommended. Allergies Allergen Reactions Azithromycin Swelling Reaction Date:hives Erythromycin Base Other Reaction(s): hives Molds & Smuts Other Reaction(s): Unknown Siqpx-Ucasg-Smjaogt-Pramoxine Other Reaction(s): rash,itching Nickel Rash Current Outpatient Medications on File Prior to Visit Medication Sig Dispense Refill albuterol (2.5 MG/3ML) 0.083% nebulizer solution Take 2.5 mg by nebulization every 6 (six) hours ifneeded. albuterol HFA 90 mcg/act inhaler Inhale 2 puffs in the morning and 2 puffs at noon and 2 puffs in the evening and 2 puffs before bedtime. Ascorbic Acid (Vitamin C) 500 MG capsule Take 1 capsule by mouth in the morning. celecoxib (CeleBREX) 100 MG capsule Take 50 mg by mouth in the morning and 50 mg in the evening. Eliquis 5 MG tablet Take 5 mg by mouth in the morning and 5 mg before bedtime. magnesium oxide (Mag-Ox) 400 mg tablet 400 mg in the morning and 400 mg before bedtime. montelukast (Singulair) 10 MG tablet Take 1 tablet (10 mg) by mouth at bedtime 90 tablet 1 Multiple Vitamins-Minerals (Multivitamin Women 50+) tablet Take 1 tablet by mouth in the morning. nitroglycerin (Nitrostat) 0.[address] 0.4 mg under the tongue every 5 (five) minutes if needed for chest pain. omeprazole OTC (PriLOSEC OTC) 20 MG EC tablet Take 20 mg by mouth in the morning. Take before meals. Do not crush, chew, or split. . oxybutynin (Ditropan) 5 MG tablet Take 1 tablet (5 mg) by mouth in the morning and 1 tablet (5 mg) before bedtime. 180 tablet 1 sertraline (Zoloft) 100 MG tablet Take 1 tablet (100 mg) by mouth Daily 90 tablet 1 traMADol (Ultram) 50 MG tablet Take 1 tablet (50 mg) by mouth every 8 (eight) hours if needed for severe pain 45 tablet 2 [DISCONTINUED] aspirin 81 MG EC tablet Take 81 mg by mouth 2 (two) times a week [DISCONTINUED] atorvastatin (Lipitor) 80 MG tablet Take 1 tablet (80 mg) by mouth Daily 90 tablet 1 [DISCONTINUED] gabapentin (Neurontin) 600 MG tablet Take 1 tablet (600 mg) by mouth at bedtime 90 tablet 1 [DISCONTINUED] losartan (Cozaar) 100 MG tablet Take 1 tablet (100 mg) by mouth Daily 90 tablet 1 [DISCONTINUED] metoprolol succinate XL (Toprol-XL) 50 MG 24 hr tablet Take 25 mg by mouth Daily [DISCONTINUED] dilTIAZem CD (Cardizem CD) 300 MG 24 hr capsule Take 300 mg by mouth Daily No current facility-administered medications on file prior to visit. 1. Benign essential hypertension (CMS/HCC) Chronic problem, stable, to goal - losartan (Cozaar) 100 MG tablet; Take 1 tablet (100 mg) by mouth Daily Dispense: 90 tablet; Refill: 1 - metoprolol succinate XL (Toprol-XL) 50 MG 24 hr tablet; Take 0.5 tablets (25 mg) by mouth Daily Dispense: 45 tablet; Refill: 1 2. Hypertensive nephropathy (CMS/HCC) Chronic problem, stable, demonstrating end organ damage from their current state of health. I stressed the importance of keeping blood pressure and blood sugar to goal, staying well hydrated,avoiding NSAIDs, and aerobic exercises as tolerated. Continue to monitor longitudinally. 3. Stage 3a chronic kidney disease (HCC) (CMS/HCC) Chronic problem, stable, defining the end organ damage of the nephropathy. I stressed the importance of keeping blood pressure and blood sugar to goal, staying well hydrated,and aerobic exercises as tolerated. Continue to monitor longitudinally. 4. Microalbuminuria Chronic problem, defining an aspect the nephropathy, with significant risk, uncertain progression requiring longitudinal monitoring, and moderate decision making. Microalbuminuria describes a moderate increase in the level of urine albumin. Normally, the kidneysfilter albumin, so if the kidney leaks small amounts of albumin into the urine then it is a indicator of chronic kidney disease. Microalbuminuria is an independent indicator of increased cardiovascular risk among individuals andtherefore can be used for risk stratification for cardiovascular disease. 5. Mixed hyperlipidemia (CMS/HCC) Chronic problem, stable, to goal. Tolerating statin therapy. In prescribing a renewal to their current medication, consideration of the following encompasses moderate decision making; the current prescriptions and supplements, the current allergies and medication intolerances, current medical conditions, and potential drug interactions. Any changes to risks, benefits, and reason for renewing their current medication due to the above were discussed. The patient was given a chance to ask questions today and all questions were answered. The patient is to contact us if any other questions arise or if any problems occur. (Utilizing the original guidelines or the 2020 office/outpatient code guidelines for selecting the level of E/M service, In both sets of guidelines, prescription drug management appears in the moderate medical decision making (MDM) row. Neither the original guidelines nor the new guidelines state that a new prescription or change is needed in order to credit prescription drug management) - atorvastatin (Lipitor) 80 MG tablet; Take 1 tablet (80 mg) by mouth Daily Dispense: 90 tablet; Refill: 1 6. Restless leg syndrome Chronic problem, stable, cross treated with the gabapentin. 7. Morbid obesity due to excess calories (CMS/HCC) Chronic problem, stable had previously talked about lifestyle changes 8. Uses roller walker Chronic problem that is stable, she is actually doing pretty well today and just came with a 3 prong cane 9. Chronic pain syndrome Chronic problem, stable, multifactorial, with complex decision making. The patient presents for re-evaluation of their chronic pain syndrome and treatment recommendations. They note, that the pain is still present but under reasonable control with home therapies and medications. They state that they are taking their medications compliantly and perceiving a benefit specifically from these medications. They deny any significant side effects from the medications themselves. The treatment program enables them to continue their activities of daily living. - gabapentin (Neurontin) 600 MG tablet; Take 1 tablet (600 mg) by mouth at bedtime Dispense: 90 tablet; Refill: 1 10. Urge incontinence of urine Chronic problem, stable patient does not need the oxybutynin refilled today. documented in this encounterChristian [id number] Evaluation + Plan note* Assessment & Plan Note - TORIBIO Milner - 10/07/2023 1:50 PM EDT Associated Problem(s): BMI 34.0-34.9,adult Reviewed the merits of healthy lifestyle choices on overall cardiovascular health. [facility] Work Phone: 1(252) 982-491306-19-2024 Evaluation + Plan note* Assessment & Plan Note - TORIBIO Milner - 10/07/2023 1:50 PM EDTAssociated Problem(s): [facility]FP current use of anticoagulant therapy CHADS VASc 4 currently on full dose Eliquis age 72, weight 236 pounds. Denies bleeding diatheses Denies history of frequent falls Patient assistance form has been submitted and the daughter reports they are pending as of 4 days ago [facility] Work Phone: [phone]) 950-109506-19-2024 Evaluation + Plan note* Assessment & Plan Note - TORIBIO Milner - 10/07/2023 1:50 PM EDTAssociated Problem(s): Paroxysmal atrial fibrillation (Multi) Initially identification June 2023 hospitalization at [facility] in setting of UTI and hypomagnesia. Converted on Cardizem drip. EKG in office today maintaining normal sinus rhythm August 2023 follow-up Holter normal sinus rhythm, no atrial fibrillation. [facility] Work Phone: [phone] 502-462806-19-2024 Miscellaneous Notes* Assessment & Plan Note - TORIBIO Milner - 10/07/2023 1:50 PM EDTAssociated Problem(s): BMI 34.0-34.9,adult Reviewed the merits of healthy lifestyle choices on overall cardiovascular health. * Assessment & Plan Note - TORIBIO Milner - 10/07/2023 1:50 PM EDT Associated Problem(s): [facility]FP current use of anticoagulant therapy CHADS VASc 4 currently on full dose Eliquis age 72, weight 236 pounds. Denies bleeding diatheses Denies history of frequent falls Patient assistance form has been submitted and the daughter reports they are pending as of 4 days ago * Assessment & Plan Note - TORIBIO Milner - 10/07/2023 1:50 PM EDT Associated Problem(s): Paroxysmal atrial fibrillation (Multi) Initially identification June 2023 hospitalization at [facility] in setting of UTI and hypomagnesia. Converted on Cardizem drip. EKG in office today maintaining normal sinus rhythm August 2023 follow-up Holter normal sinus rhythm, no atrial fibrillation. documented in this [facility] Work Phone: [phone]) 730-471306-18-2024 History of Present illness Narrative* TORIBIO Milner - 10/06/2023 3:00 PM EDT Chief Complaint Seem to be doing better Reason for Visit Patient presents to the office today for outpatient follow-up for testing results. Last evaluated in clinic by myself August 2023. At that time, she had initial identification of atrialfibrillation in the setting of hospitalization for UTI. Subsequent echocardiogram showed normal LVEF, no significant valvular heart disease. Holter monitor showed maintenance of sinus rhythm. Presents today ambulatory with steady gait. Accompanied by child Patient denies any hospitalizations or significant changes to interval medical history since last office follow-up. Follows routinely with PCP. History of Present Illness Patient is a very pleasant 72-year-old female who presents to the office today doing exceedingly well. She has increased her activity going to the grocery store, ambulated to the [facility]. Walked into the parking lot without concerns. She denies any exertional complaints. Continues to deny exertional chest pain. Is tolerating anticoagulation without complaints. She denies any symptoms reminiscent of her February 2022 inferior lateral STEMI. Secondary prevention has been reviewed and remains optimal. Patient reports that overall has no complaint(s) of chest pain, chest pressure/discomfort, claudication, dyspnea, exertional chest pressure/discomfort, fatigue, and irregular heart beat Review of Systems Cardiovascular: Negative for chest pain, dyspnea on exertion, irregular heartbeat, leg swelling, near-syncope, orthopnea, palpitations, paroxysmal nocturnal dyspnea and syncope. Visit Vitals BP 122/64 (BP Location: Right arm, Patient Position: Sitting) Pulse 60 Ht 1.753 m (5' 9 ) Wt 107 kg (236 lb) BMI 34.85 kg/m Smoking Status Never BSA 2.28 m Physical Exam Vitals and nursing note reviewed. HENT: Head: Normocephalic. Cardiovascular: Rate and Rhythm: Normal rate and regular rhythm. Heart sounds: Normal heart sounds. Pulmonary: Effort: Pulmonary effort is normal. Breath sounds: Normal breath sounds. Abdominal: Palpations: Abdomen is soft. Musculoskeletal: Right lower leg: No edema. Left lower leg: No edema. Skin: General: Skin is warm and dry. Neurological: General: No focal deficit present. Mental Status: She is alert. Psychiatric: Mood and Affect: Mood normal. Behavior: Behavior normal. Allergies Current Outpatient Medications Medication Instructions albuterol 90 mcg/actuation inhaler 1 puff, inhalation, Every 4 hours PRN apixaban (ELIQUIS) 5 mg, oral, 2 times daily ascorbic acid (VITAMIN C) 500 mg, oral, Daily aspirin 81 mg chewable tablet Take one tablet by mouth twice a week atorvastatin (Lipitor) 80 mg tablet 1 tablet, oral, Daily celecoxib (CELEBREX) 50 mg, oral, 2 times daily gabapentin (Neurontin) 600 mg tablet 1 tablet, oral, Nightly losartan (Cozaar) 100 mg tablet 1 tablet, oral, Daily magnesium oxide (MAG-OX) 400 mg, oral, Daily metoprolol succinate XL (TOPROL-XL) 50 mg, oral, Daily, Do not crush or chew. montelukast (Singulair) 10 mg tablet 1 tablet, oral, Nightly multivitamin tablet 1 tablet, oral, Daily nitroglycerin (NITROSTAT) 0.4 mg, sublingual, Every 5 min PRN, CALL 911 IF PAIN PERSISTS. omeprazole (PRILOSEC) 40 mg, oral, Daily before breakfast oxybutynin (Ditropan) 5 mg tablet 1 tablet, oral, 2 times daily sertraline (Zoloft) 100 mg tablet 1 tablet, oral, Daily traMADol (ULTRAM) 50 mg, oral, Every 8 hours PRN Assessment: Paroxysmal atrial fibrillation (Multi) Initially identification June 2023 hospitalization at [facility] in setting of UTI and hypomagnesia. Converted on Cardizem drip. EKG in office today maintaining normal sinus rhythm August 2023 follow-up Holter normal sinus rhythm, no atrial fibrillation. MCFP current use of anticoagulant therapy CHADS VASc 4 currently on full dose Eliquis age 72, weight 236 pounds. Denies bleeding diatheses Denies history of frequent falls Patient assistance form has been submitted and the daughter reports they are pending as of 4 days ago BMI 34.0-34.9,adult Reviewed the merits of healthy lifestyle choices on overall cardiovascular health. Plan: Through informed decision making process incorporating patients unique circumstances, the followingtreatment plan will be initiated: 1. Prescription drug management of cardiovascular medication for efficacy, adherence to treatment, side effect assessment and polypharmacy. Current treatment clinically warranted and to continue without modifications. 2. Return for follow-up; in the interim, contact the office if new symptoms arise. Dr. Canales as scheduled Gus Malik MSN, DIRECTOR SOFTWARE DEVELOPMENT-SINTER FEEDER, PMHNP-[facility] Please excuse any errors in grammar or translation related to this dictation. Voice recognition software was utilized to prepare this document. [facility] Work Phone: 1([phone]) 451-687106-18-2024 Instructions* Patient Instructions* TORIBIO Milner - 10/06/2023 3:00 PM EDT Please bring all medicines, vitamins, and herbal supplements with you when you come to the office. Prescriptions will not be filled unless you are compliant with your follow up appointments or have a follow up appointment scheduled as per instruction of your physician. Refills should be requested at the time of your visit. PLAN: Through informed decision making process incorporating patients unique circumstances, the followingtreatment plan will be initiated: 1. Prescription drug management of cardiovascular medication for efficacy, adherence to treatment, side effect assessment and polypharmacy. Current treatment clinically warranted and to continue without modifications. 2. Return for follow-up; in the interim, contact the office if new symptoms arise. Dr. Canales as scheduled documented in [facility] Work Phone: 1([phone]) 368-798305-01-2024 Evaluation + Plan note* Assessment & Plan Note - TORIBIO Milner - 08/19/2023 3:39 PM EDTAssociated Problem(s): BMI 34.0-34.9,adult Reviewed the merits of healthy lifestyle choices on overall cardiovascular health. 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 Denies bleeding diatheses Denies history of frequent falls May be cost prohibitive, provided with patient assistance forms and samples. [facility] Work Phone: [phone]) [phone] Miscellaneous Notes* Assessment & Plan Note - TORIBIO Milner - 08/19/2023 3:39 PM EDTAssociated Problem(s): BMI 34.0-34.9,adult Reviewed the merits of healthy lifestyle choices on overall cardiovascular health. 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 Denies bleeding diatheses Denies history of frequent falls May be cost prohibitive, provided with patient assistance forms and samples. * Assessment & Plan Note - TORIBIO Milner - 08/19/2023 3:38 PM EDT Associated Problem(s): Cardiomyopathy, ischemic February 2022 cardiac cath LVEF 45 to 50% with hypokinesis of the entire left lateral wall. * Assessment & Plan Note - TORIBIO Milner - 08/19/2023 3:38 PM EDT Associated Problem(s): Paroxysmal atrial fibrillation (Multi) Initially identification June 2023 hospitalization at [facility] in setting of UTI and hypomagnesia. Converted on Cardizem drip. EKG in office today maintaining normal sinus rhythm * Assessment & Plan Note - TORIBIO Milner - 08/19/2023 3:37 PM EDT Associated Problem(s): Hypertension Optimal in office * Assessment & Plan Note - TORIBIO Milner - 08/19/2023 3:37 PM EDT Associated Problem(s): Hyperlipidemia Tolerating high intensity statin Reports wellness labs through PCP * Assessment & Plan Note - TORIBIO Milner - 08/19/2023 3:36 PM EDT Associated Problem(s): ASHD (arteriosclerotic heart disease) Mar 13, [address] Forman pOM3 PCI/[place] 2.75 x 18 mm Mid LAD 30 to 40% Circumflex negative RCA negative Current daily activity less than 4 METS Prior angina symptom was stomach ache , denies any recurrence. documented in [facility] Work Phone: 1([phone]) 231-404805-01-2024 Evaluation + Plan note* Assessment & Plan Note - TORIBIO Milner - 08/19/2023 3:38 PM EDTAssociated Problem(s): Cardiomyopathy, ischemic February 2022 cardiac cath LVEF 45 to 50% with hypokinesis of the entire left lateral wall. [facility] Work Phone: [phone]) 448-910705-01-2024 Evaluation + Plan note* Assessment & Plan Note - TORIBIO Milner - 08/19/2023 3:38 PM EDTAssociated Problem(s): Paroxysmal atrial fibrillation (Multi) Initially identification June 2023 hospitalization at [facility] in setting of UTI and hypomagnesia. Converted on Cardizem drip. EKG in office today maintaining normal sinus rhythm [facility] Work Phone: [phone]) 564-532405-01-2024 Evaluation + Plan note* Assessment & Plan Note - TORIBIO Milner - 08/19/2023 3:37 PM EDTAssociated Problem(s): Hypertension Optimal in office [facility] Work Phone: [phone] Evaluation + Plan note* Assessment & Plan Note - TORIBIO Milner - 08/19/2023 3:37 PM EDTAssociated Problem(s): Hyperlipidemia Tolerating high intensity statin Reports wellness labs through PCP [facility] Work Phone: 1([phone]) 192-303105-01-2024 Evaluation + Plan note* Assessment & Plan Note - TORIBIO Milner - 08/19/2023 3:36 PM EDTAssociated Problem(s): ASHD (arteriosclerotic heart disease) Mar 13, [address] Forman pOM3 PCI/[place] 2.75 x 18 mm Mid LAD 30 to 40% Circumflex negative RCA negative Current daily activity less than 4 METS Prior angina symptom was stomach ache , denies any recurrence. T [facility] Work Phone: [phone] 143-199505-01-2024 History of Present illness Narrative* TORIBIO Milner - 08/19/2023 2:30 PM EDT Chief Complaint Was in the hospital Reason for Visit Add-on due to initial identified A-fib during hospitalization UTI. Patient presents to the office today for outpatient follow-up for atrial fibrillation. Last evaluated in clinic by Dr. Canales February 2023. Presents today ambulatory with wheeled walker and steady gait. Accompanied by child History of Present Illness Patient is a pleasant 72-year-old female who presents to the office today due to initially identified atrial fibrillation. Towards the end of June 2023 she was hospitalized at [facility] due to weakness, noted to have A-fib with RVR with conversion on Cardizem drip. Was treated for urinary tract infection. She was initiated on anticoagulation at that time. She was then readmitted approxima tely 1 week later due to sepsis , no reported atrial fibrillation during that hospital stay. Hospital records are not reviewed. She then completed a brief stay at a rehab facility, currently is at home. She reports that her prior NM symptom was stomachache and denies any recurrence. Her activity level is very sedentary at home. She denies any type of palpitations. The ER evaluation where she was noted to have A-fib with RVR she presented with weakness (had UTI). Mild dyspnea with exertion due to deconditioning. Reviewed the pathophysiology for atrial fibrillation and need for cardioembolic protection. Discussed Eliquis. It may be cost prohibitive, she will check on Xarelto. Provided with samples and patientassistance forms. She denies any falls, has no history of bleeding events. Briefly introduced Watchman device. Also discussed A-fib management including but not limited to AV wilbert blocking agents, antiarrhythmics or ablation. Patient reports that overall has no complaint(s) of chest pain, chest pressure/discomfort, exertional chest pressure/discomfort, fatigue, and irregular heart beat Will repeat echocardiogram for valvular heart disease, reassess cardiomyopathy. At this time, no clinical symptoms that would warrant ischemic evaluation. I will review hospital records for cardiac enzymes. Review of Systems Cardiovascular: Negative for chest pain, dyspnea on exertion, irregular heartbeat, leg swelling, near-syncope, orthopnea, palpitations, paroxysmal nocturnal dyspnea and syncope. Visit Vitals BP 126/68 (BP Location: Left arm, Patient Position: Sitting) Pulse 79 Ht 1.753 m (5' 9 ) Wt 107 kg (236 lb) BMI 34.85 kg/m Smoking Status Never BSA 2.28 m Physical Exam Vitals and nursing note reviewed. HENT: Head: Normocephalic. Cardiovascular: Rate and Rhythm: Normal rate and regular rhythm. Heart sounds: Normal heart sounds. Pulmonary: Effort: Pulmonary effort is normal. Breath sounds: Normal breath sounds. Abdominal: Palpations: Abdomen is soft. Musculoskeletal: Right lower leg: No edema. Left lower leg: No edema. Skin: General: Skin is warm and dry. Neurological: General: No focal deficit present. Mental Status: She is alert. Psychiatric: Mood and Affect: Mood normal. Behavior: Behavior normal. Allergies Allergen Reactions Azithromycin Swelling Reaction Date:hives Nickel Swelling Current Outpatient Medications Medication Instructions albuterol 90 mcg/actuation inhaler 1 puff, inhalation, Every 4 hours PRN apixaban (ELIQUIS) 5 mg, oral, 2 times daily ascorbic acid (VITAMIN C) 500 mg, oral, Daily aspirin 81 mg chewable tablet Take one tablet by mouth twice a week atorvastatin (Lipitor) 80 mg tablet 1 tablet, oral, Daily celecoxib (CeleBREX) 200 mg capsule oral, 2 times daily, With food gabapentin (Neurontin) 600 mg tablet 1 tablet, oral, Nightly losartan (Cozaar) 100 mg tablet 1 tablet, oral, Daily magnesium oxide (MAG-OX) 400 mg, oral, Daily metoprolol succinate XL (TOPROL-XL) 50 mg, oral, Daily, Do not crush or chew. montelukast (Singulair) 10 mg tablet 1 tablet, oral, Nightly multivitamin tablet 1 tablet, oral, Daily nitroglycerin (NITROSTAT) 0.4 mg, sublingual, Every 5 min PRN, CALL 911 IF PAIN PERSISTS. oxybutynin (Ditropan) 5 mg tablet 1 tablet, oral, 2 times daily sertraline (Zoloft) 100 mg tablet 1 tablet, oral, Daily Assessment: ASHD (arteriosclerotic heart disease) Mar 13, [address] Forman pOM3 PCI/Patrick 2.75 x 18 mm Mid LAD 30 to 40% Circumflex negative RCA negative Current daily activity less than 4 METS Prior angina symptom was stomach ache , denies any recurrence. Hyperlipidemia Tolerating high intensity statin Reports wellness labs through PCP Hypertension Optimal in office Paroxysmal atrial fibrillation (Multi) Initially identification June 2023 hospitalization at [facility] in setting of UTI and hypomagnesia. Converted on Cardizem drip. EKG in office today maintaining normal sinus rhythm Cardiomyopathy, ischemic February 2022 cardiac cath LVEF 45 to 50% with hypokinesis of the entire left lateral wall. MCFP current use of anticoagulant therapy CHADS VASc 4 currently on full dose Eliquis age 72, weight 236 pounds. Denies bleeding diatheses Denies history of frequent falls May be cost prohibitive, provided with patient assistance forms and samples. BMI 34.0-34.9,adult Reviewed the merits of healthy lifestyle choices on overall cardiovascular health. Plan: Through informed decision making process incorporating patients unique circumstances, the followingtreatment plan will be initiated: 1. Prescription drug management of cardiovascular medication for efficacy, adherence to treatment, side effect assessment and polypharmacy. Current treatment clinically warranted and to continue withfollowing modifications: - Reduce ASA 81mg to twice a week 2. Echo (ICM, PAF) 3. Pt assistance forms for Eliquis. Xarelto 20mg - check to see if less expensive 4. Return for follow-up; in the interim, contact the office if new symptoms arise. Dr. Canales as schedule If testing abnormal or concerns from review of hospital records will bring in sooner Gus Malik MSN, DIRECTOR SOFTWARE DEVELOPMENT-SINTER FEEDER, PMHNP-[facility] Please excuse any errors in grammar or translation related to this dictation. Voice recognition software was utilized to prepare this document. documented in this encounterC[facility] Work Phone: [phone]) 293-692405-01-2024 Instructions* Patient Instructions* TORIBIO Milner - 08/19/2023 2:30 PM EDT Please bring all medicines, vitamins, and herbal supplements with you when you come to the office. Prescriptions will not be filled unless you are compliant with your follow up appointments or have a follow up appointment scheduled as per instruction of your physician. Refills should be requested at the time of your visit. PLAN: Through informed decision making process incorporating patients unique circumstances, the followingtreatment plan will be initiated: 1. Prescription drug management of cardiovascular medication for efficacy, adherence to treatment, side effect assessment and polypharmacy. Current treatment clinically warranted and to continue withfollowing modifications: - Reduce ASA 81mg to twice a week 2. Echo (ICM, PAF) 3. Pt assistance forms for Eliquis. Xarelto 20mg - check to see if less expensive 4. Return for follow-up; in the interim, contact the office if new symptoms arise. Dr. 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 [...] mg) by mouth once daily at bedtime., Disp:, Rfl: losartan (Cozaar) 100 mg tablet, Take [...] of breath) on exertion documented in this encounterC[facility] Work Phone: [phone]) 139-893511-01-2023 Instructions* Patient Instructions* Aries Metzger MA - 02/18/2023 11:00 AM [...] Fall Prevention Education Given documented in this encounterC[facility] Work Phone: [phone]) 391-104809-09-2023 Evaluation note* Encounter Date Diagnosis Assessment Notes Treatment Notes Treatment Clinical Notes Dec, Insect bite, unspeci fied site, initial encounter (ICD-10 - W57.XXXA) Discussed [...] understanding and is agreeable with treatment plan Ensenda Other 11-25-2022 Discharge summary Author Dario Forman [facility] March 14, 2022 3:25pmNote Date/TimeNov2021 3:10pm[place] [address] Discharge Summary Signed Patient: Leia Ewing MR#: [id number] : 1950 Acct:[id number] Age/Sex: 71 / F Adm Date: 2 Loc: Room: [address] [place] [address]: Dario Forman MD Copies to: [...] 71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 EKG was consistent with acute inferior STEMI. I was contacted and the [facility] cardiac Blanket Maker was activated. The patient was broughtdirectly to the cardiaccatheterization suite for emergent treatment of acute inferolateral lateral STEMI. Please see my cardiac catheterization and PCI notes for full details of the patient's procedure. However the patientwas found to have an occluded third OM branch of the left circumflex. Primary PCI was successfully performed with implantation of a single resolute [place] drug-eluting stent with yazdanism of JHONNY-3 flow into the target vessel. [...] with the right arm 2. Follow-up in [facility] heart [facility] within 10 days 3. Enrollment in phase [...] Sodium 139, Potassium 4.2, Chloride 108, Carbon Ievvjmq07.3, Anion Gap 12.9, BUN 17, Creatinine 0.99, [...] % (Auto) 80.0, Lymph % (Auto) 8.8, [place] % (Auto) 10.2, Eos % (Auto) 0.7, Baso % (Auto) 0.3, Neut # (Auto) 10.1 H, Lymph # (Auto) 1.1, [place] # (Auto) 1.3 H, Eos # (Auto) [...] Salt Diet, What Can Go Wrong After aHeart Attack?, Lowering Your Risk of Heart Disease, [...] <Electronically signed by Dario Forman MD> 03/14/22 [address] [facility] Work Phone: [phone]) 735-228511-24-2022 History and physical note Author Dario Forman [facility] March 13, 2022 2:01pmNote Date/TimeNov2021 1:49pm[place] [address] Cardiology H&P Signed Patient: Leia Ewing MR#: [id number] : 1950 Acct:[id number] Age/Sex: 71 / F Adm Date: 2 Loc: Room: 3L1777-1 Type: ADM IN Attending Dr: Dario Forman [...] noted the abrupt onset of pressure-like substernal chestpain with associated shortness of breath and diaphoresis. The pain lasted several minutesand became particularly intense. With the symptoms the patient's family member took her directly to [place] emergency department for evaluation. In [place] ED initial ECG showed a current of [...] the patient for emergent diagnostic left heart cat heterizationwith likely primary percutaneous coronary mention in the treatment of an acute inferiorST segment elevation myocardial infarction. Review of Systems Review of Systems Other (Unobtainable secondary to the patient's urgently ill condition) [facility] Vaccinated for COVID-19?: Unknown Meds Medications [...] Dysrhythmias Sinus rhythms and dysrhythmias: sinus rhythm NM, pacemaker, normal Myocardial infarction: inferior NM (acute or recent) A&P - Cardiology (1) [...] signed by Dario Forman MD> 03/13/22 [address] [facility] Work Phone: [phone]) [phone] Procedure [facility]11-24-2022 Procedure [facility]10-18-2021 Note HNO ID: [id number] Author: Yonas Luciano PA-C Service: ? Author Type: Physician Supplier Quality Type: Progress Notes Filed: 02/04/2021 3:03 PM [...] previously because of the arthritic changes near [id number] of the lateral compartment she will have [...] osteoarthritis of left knee (primary encounter diagnosis) (S83.582D) Sprain of medial collateral ligament of left [...] Has a valgus aligned knee with near [id number] lateral compartment Follow up: As needed consider cortisone injection Films prior to visit: No additional imaging warranted. SIGNATURE: Yonas Luciano PA-C PATIENT NAME: Leia Ewing DATE: February 04, 2021 TIME: 2:40 [facility]09-27-2021 NoteHNO ID: [id number] Author: Yonas Luciano PA-C Service: ? Author Type: Physician Supplier Quality Type: Progress Notes Filed: 01/14/2021 12:50 PM [...] mild Effusion: effusion present Assessment/Plan ASSESSMENT Diagnosis (S83.780D) Sprain of medial collateral ligament of left [...] Ewing DATE: January 14, 2021 TIME: 12:41 [facility]07-16-2021 NoteHNO ID: [id number] Author: Daiana Bond Ma Service: ? Author [...] They are to contact casting services at [phone] with any questions. Daiana Bond [facility]07-16-2021 NoteHNO ID: [id number] Author: Yonas Luciano PA-C Service: ? Author Type: Physician Supplier Quality Type: Progress Notes Filed: 11/02/2020 1:57 PM [...] and sleeping. Follow up: six weeks con matcher Cortisone injection Films prior to visit: If this regimen does not provide pain relief, we will investigate further with advanced imaging. SIGNATURE: Yonas Luciano PA-C PATIENT NAME: Leia Ewing DATE: November 02, 2020 TIME: 1:45 [facility]07-16-2021 NoteHNO ID: [id number] Author: RT Timo(R) Service: ? Author Type: Inspector Barrel Type: Progress Notes Filed: 11/02/2020 1:00 PM [...] PERIPHERAL IV DATA: Not applicable SIGNED BY: RT Timo(R) November 02, 2020 12:59 [facility] Diagnosis Onset Date Resolution Status [id number] [facility] Work Phone: Evaluation note* Diagnosis ASHD (arteriosclerotic heart disease) Coronary atherosclerosis of unspecified type of vessel, platinum or graft History of myocardial infarction Status post insertion of drug eluting coronary artery stent Class 2 obesity due to excess calories with body mass index (BMI) of 36.0 to 36.9 in adult, unspecified whether serious comorbidity present SOB (shortness of breath) on exertion Shortness of breath documented in this encounter [facility] Work Phone: Evaluation note* Diagnosis MCFP current use of anticoagulant therapy- Primary Paroxysmal atrial fibrillation (Multi) Atrial fibrillation ASHD (arteriosclerotic heart disease) Coronary atherosclerosis of unspecified type of vessel, platinum or graft Mixed hyperlipidemia Primary hypertension Unspecified essential hypertension BMI 34.0-34.9,adult Cardiomyopathy, ischemic Other specified forms of chronic ischemic heart disease documented in this encounter [facility] Work Phone: Evaluation note* Diagnosis Paroxysmal atrial fibrillation (Multi) Atrial fibrillation ASHD (arteriosclerotic heart disease) Coronary atherosclerosis of unspecified type of vessel, platinum or graft Cardiomyopathy, ischemic Other specified forms of chronic ischemic heart disease documented in this encounter [facility] Work Phone: Evaluation note* Diagnosis Paroxysmal atrial fibrillation (Multi)- Primary Atrial fibrillation MCFP current use of anticoagulant therapy ASHD (arteriosclerotic heart disease) Coronary atherosclerosis of unspecified type of vessel, platinum or graft Primary hypertension Unspecified essential hypertension Mixed hyperlipidemia Cardiomyopathy, ischemic Other specified forms of chronic ischemic heart disease BMI 34.0-34.9,adult documented in this encounter [facility] Work Phone: Evaluation note* Diagnosis Encounter for Medicare annual wellness exam- Primary Advance directive in chart Encounter for screening for other disorder Screening for alcohol problem Screening for alcoholism Morbid obesity due to excess calories (CMS/HCC) Hemiparesis of left nondominant side due to non-cerebrovascular etiology (CMS/HCC) Uses roller walker Simple chronic bronchitis (CMS/HCC) Simple chronic bronchitis Mild intermittent asthma without complication (CMS/HCC) Coronary artery disease involving platinum coronary artery of platinum heart without angina pectoris (CMS/HCC) History of heart attack (CMS/HCC) Old myocardial infarction Benign essential hypertension (CMS/HCC) Essential hypertension, benign Hypertensive nephropathy (CMS/HCC) Unspecified hypertensive kidney disease with chronic kidney disease stage I through stage IV, or unspecified Stage 3a chronic kidney disease (HCC) (CMS/HCC) Mixed hyperlipidemia (CMS/HCC) Mixed hyperlipidemia Recurrent major depressive disorder, in partial remission (HCC) (CMS/HCC) Paroxysmal atrial fibrillation (CMS/HCC) Atrial fibrillation documented in this encounter [facility] HealthcareEvaluation note* Diagnosis MCFP current use of anticoagulant therapy- Primary Paroxysmal atrial fibrillation (Multi) Atrial fibrillation ASHD (arteriosclerotic heart disease) Coronary atherosclerosis of unspecified type of vessel, platinum or graft Mixed hyperlipidemia Primary hypertension Unspecified essential hypertension BMI 34.0-34.9,adult Cardiomyopathy, ischemic Other specified forms of chronic ischemic heart disease Paroxysmal atrial fibrillation (Multi)- Primary Atrial fibrillation terminologist current use of anticoagulant therapy ASHD (arteriosclerotic heart disease) Coronary atherosclerosis of unspecified type of vessel, platinum or graft Primary hypertension Unspecified essential hypertension Mixed hyperlipidemia Cardiomyopathy, ischemic Other specified forms of chronic ischemic heart disease BMI 34.0-34.9,adult ASHD (arteriosclerotic heart disease) Coronary atherosclerosis of unspecified type of vessel, platinum or graft History of myocardial infarction History of percutaneous coronary intervention Paroxysmal atrial fibrillation (Multi) Atrial fibrillation Status post insertion of drug eluting coronary artery stent Mixed hyperlipidemia Primary hypertension Unspecified essential hypertension SOB (shortness of breath) on exertion Shortness of breath Cardiomyopathy, ischemic Other specified forms of chronic ischemic heart disease MCFP current use of anticoagulant therapy Class 2 obesity due to excess calories with body mass index (BMI) of 36.0 to 36.9 in adult, unspecified whether serious comorbidity present Never smoked tobacco documented in this encounter [facility] Work Phone: Evaluation note* Diagnosis Benign essential hypertension (CMS/HCC) Essential hypertension, benign Hypertensive nephropathy (CMS/HCC) Unspecified hypertensive kidney disease with chronic kidney disease stage I through stage IV, or unspecified Stage 3a chronic kidney disease (HCC) (CMS/HCC) Microalbuminuria Proteinuria Mixed hyperlipidemia (CMS/HCC) Mixed hyperlipidemia Restless leg syndrome Restless legs syndrome (RLS) Morbid obesity due to excess calories (CMS/HCC) Uses roller walker Chronic pain syndrome Urge incontinence of urine Urge incontinence documented in [facility] encounter [facility]* Diagnosis Urge incontinence documented in [facility] encounter [facility]* Diagnosis Mixed hyperlipidemia (CMS/HCC) Mixed hyperlipidemia documented in this encounter [facility]* Diagnosis Benign essential hypertension (CMS/HCC) Essential hypertension, benign Hypertensive nephropathy (CMS/HCC) Unspecified hypertensive kidney disease with chronic kidney disease stage I through stage IV, or unspecified Stage 3a chronic kidney disease (HCC) (CMS/HCC) Microalbuminuria Proteinuria Mixed hyperlipidemia (CMS/HCC) Mixed hyperlipidemia Paroxysmal atrial fibrillation (CMS/HCC) Atrial fibrillation terminologist current use of anticoagulant therapy Restless leg syndrome Restless legs syndrome (RLS) Chronic pain syndrome Urge incontinence of urine Urge incontinence Simple chronic bronchitis (CMS/HCC) Simple chronic bronchitis documented in this encounter [facility]* Diagnosis Chronic pain syndrome- Primary Arthritis of left knee Arthritis of right knee documented in this encounter [facility]* Diagnosis Chronic pain syndrome Arthritis of left knee Arthritis of right knee Uses roller walker Difficulty walking Difficulty in walking Morbid obesity due to excess calories (CMS/HCC) BMI 35.0-35.9,adult Benign essential hypertension ([facility]) Essential hypertension, benign documented in this encounter [facility] HealthcareEvaluation note* Diagnosis Contusion of right hip, initial encounter- Primary History of right hip replacement Chronic pain syndrome Status post left hip replacement Morbid obesity due to excess calories ([facility]) Contusion of right hip, initial encounter History of right hip replacement documented in this encounter [facility] HealthcareEvaluation note* Diagnosis Acute right hip pain- Primary Right hip pain Pain in joint, pelvic region and thigh History of total hip replacement, right documented in this encounter [facility] HealthcareEvaluation note* Diagnosis Cellulitis of left upper extremity- Primary documented in this encounter [facility] HealthcareEvaluation note* Diagnosis Onset Date Resolution Status Admit Date Chronic hip pain after total replacement of right hip joint acuteAugust 2024 2:06pmHistory of total right hip arthroplastyacuteAugust 2024 2:06pm [facility] Work Phone: Evaluation note* Diagnosis Neoplasm of uncertain behavior- Primary Neoplasm of uncertain behavior, site unspecified Enlarged pigmented skin lesion Skin inflammation Unspecified local infection of skin and subcutaneous tissue Visit for suture removal Uses roller walker Morbid obesity due to excess calories ([facility]) documented in this encounter [facility] HealthcareEvaluation note* Diagnosis Visit for suture removal documented in this encounter [facility]* Diagnosis Benign essential hypertension Essential hypertension, benign Hypertensive nephropathy Unspecified hypertensive kidney disease with chronic kidney disease stage I through stage IV, or unspecified Stage 3a chronic kidney disease ([facility]) Microalbuminuria Proteinuria Mixed hyperlipidemia Mixed hyperlipidemia Restless leg syndrome Restless legs syndrome (RLS) Difficulty walking Difficulty in walking Uses roller walker Chronic pain syndrome documented in this encounter [facility]* Diagnosis Simple chronic bronchitis (HCC) Simple chronic bronchitis Mild intermittent asthma without complication (HCC) Urge incontinence of urine Urge incontinence Recurrent major depressive disorder, in partial remission Difficulty walking Difficulty in walking Morbid obesity due to excess calories (CMS-HCC) Acute cystitis without hematuria Mixed hyperlipidemia Mixed hyperlipidemia documented in this encounter [facility] general Narrative - Reported* Type Description Date Medical History allergies Medical HistoryasthmaMedical HistoryEssential hypertension, benignMedical HistoryChronic kidney disease, Stage II (mild)Medical HistoryInfectious mononucleosisMedical HistorySymptomatic menopausal or female climacteric states Medical HistoryOther malignant neoplasm of skin, site unspecifiedMedical History Mixed hyperlipidemiaMedical HistoryDepressive disorder, not elsewhere classified Medical HistoryNeoplasm of uncertain behavior of skinMedical HistoryInfectious mononucleosis without complication, infectious mononucleosis due to unspecified organismMedical History06/14/2016 LEFT FOOT FX. allergiesMedical Historyasthma Medical HistoryEssential hypertension, benignMedical HistoryChronic kidney disease, Stage II (mild)Medical HistoryInfectious mononucleosisMedical History Symptomatic menopausal or female climacteric statesMedical HistoryOther malignant neoplasm of skin, site unspecifiedMedical HistoryMixed hyperlipidemia Medical HistoryDepressive disorder, not elsewhere classifiedMedical History Neoplasm of uncertain behavior of skinMedical HistoryInfectious mononucleosis without complication, infectious mononucleosis due to unspecified organism Medical HistoryRight foot broke in two placesMedical HistoryBack pain of lumbar region with sciaticaMedical HistoryOther spondylosis with myelopathy, lumbar regionMedical HistoryChronic kidney disease, stage 3Medical HistorySymptomatic menopausal or female climacteric statesSurgical Historyreduction of closed fracture left [id number] HistoryBilateral tubal [id number] HistoryCataract [id number] HistoryColonoscopy; Disease:Polyp 2 year follow up [id number] HistoryRT ARLIN Dr. Novak06/22/17urgical HistoryLT ARLIN Dr. Novak09/20/18Hospitalization HistoryER broken foot -- seeing Dr. Fournier06/2016Hospitalization HistoryRt Total Hip Replacement [facility] Dr Novak06/22/2017 [facility] Other Reason for referral (narrative)* Consultation (Routine) - AuthorizedSpecialtyDiagnoses / ProceduresReferred By Contact Referred To ContactCardiology Diagnoses ASHD (arteriosclerotic heart disease) History of myocardial infarction Status post insertion of drug eluting coronary artery stent Procedures Follow Up In Cardiology Gama Canales DO [address] [facility] [address] [place] [address] Parker Gama DO Jonathan [facility] [address] [place] [address] Referral IDStatusReasonStart DateExpiration DateVisits RequestedVisits [id number]/1/202310/31/202411 [facility] Work Phone: Reason for referral (narrative)No reason for referral information availableMedina Hospital Work Phone: Summary Purpose Family History Unknown Family Member Name Dates Details Family history of atrial fib rillation: Mother(V17.49, Z82.49) Status:ActiveFamily history of cerebrovascular accident (CVA): Mother, Father (V17.1, Z82.3) Status:ActiveAcute myelomonocytic leukemia in relapse: Father Status:Active Unknown Family Member Name Dates Details Family history of atrial fib rillation: Mother(V17.49, Z82.49) Status:ActiveFamily history of cerebrovascular accident (CVA): Mother, Father (V17.1, Z82.3) Status:ActiveAcute myelomonocytic leukemia in relapse: Father Status:Active Relationship Condition Age at Onset Recorded Date/T kelin father Malignant neoplasm Unknown DeceasedUnknownmotherDeceasedUnknownAtrial fibrillationUnknownHypertension UnknownHistory of strokeUnknown Advance Directives Advance Directive Response Recorded Date/ Time Advance Directives No February 12:26pm TypeDate RecordedPatient RepresentativeExplanationAdvance Directives and Living Will DNRAdvance Directives and Living Will Power Of AttorneyTypeDate RecordedPatient RepresentativeExplanationAdvance Directives and Living Will DNRAdvance Directives and Living Will Power Of Consultant [employer] Advance Directive Response Recorded Date/ Time Advance Directives No February 1:26pm Chief Complaint and Reason for Visit Chief Complaint Stemi Reason for Visit [id number] Chief Complaint Admit Date Z96.641 - Presence of right artificial h ip joint November 24, 2024 8:56am CONSULT YOLI HULL RT ARLIN PAIN UPDATE XR AYS November 24, 2024 2:06pm Reason for Visit Admit Date Chronic hip pain after total replacement of right hip joint November 24, 2024 2:06pm History of total right hip arthroplasty November 24, 2024 2:06pm Chief Complaint Admit Date Z96.641 - Presence of right artificial h ip joint November 24, 2024 8:56am CONSULT YOLI HULL RT ARLIN PAIN UPDATE XR AYS November 24, 2024 2:06pm Z96.641 M25.551 G89.29 December 22 2:19pm Chief Complaint Admit Date Z96.641 - Presence of right artificial h ip joint November 24, 2024 8:56am CONSULT YOLI HULL RT ARLIN PAIN UPDATE XR AYS November 24, 2024 2:06pm Z96.641 M25.551 G89.29 December 22 2:19pm LAB RESULTS, CT RESULTS [facility] [place] January 9:26am Chief Complaint * LEIA EWING is being seen for a 6 month follow-up of. * 71-year-old female returns for follow-up and doing well she has no cardiovascular complaints. She denies angina or nitrate usage or recurrent hospitalizations. She sustained inferior NM in February 2022 around [facility], underwent primary PCI of the third OM [...] usage or recurrent hospitalizations. She sustained inferior NM in February 2022 around [facility], underwent primary PCI of the third OM branch with drug-eluting stent without complications. * She remains on appropriate guideline directed medical therapies as reviewed. She has underlying obesity, mild ambulatory disability and ambulates with cane but with no falls. She remains independent * She has no hospitalizations or heart failure or syncope. * Recommendations, continue current therapies follow-up in 6 months Reason for Referral SpecialtyDiagnoses / ProceduresReferred By ContactReferred To ContactCardiology Diagnoses Paroxysmal atrial fibrillation (Multi) ASHD (arteriosclerotic heart disease) Cardiomyopathy, ischemic Procedures Transthoracic Echo Complete Transthoracic Echo Complete KS ECHO TTHRC R-T 2D W/WOM-MODE COMPL SPEC&COLR D Gus Malik, DIRECTOR SOFTWARE DEVELOPMENT-SINTER FEEDER [address] [facility] [address] [place] [address] Referral IDStatusReasonStart DateExpiration DateVisits RequestedVisits [id number] Review Perform Procedure Additional Source Comments INFORMATION SOURCE (unrecogn ized section and content) DATE CREATED AUTHOR 05/23/2021 [facility] DATE CREATED AUTHOR AUTHOR'S ORGANIZ ATION 12/14/2021 [facility] [employer] DATE CREATED AUTHOR AUTHOR'S ORGANIZ ATION 03/19/[address] [facility] DATE CREATED AUTHOR AUTHOR'S ORGANIZ ATION 03/19/2022 [employer] [facility] DATE CREATED AUTHOR AUTHOR'S ORGANIZ ATION 08/22/2022 [facility] DATE CREATED AUTHOR AUTHOR'S ORGANIZ ATION 08/22/2022 [employer] DATE CREATED AUTHOR AUTHOR'S ORGANIZ ATION 11/04/2023 [facility] DATE CREATED AUTHOR AUTHOR'S ORGANIZ ATION 06/16/2024 [facility] DATE CREATED AUTHOR AUTHOR'S ORGANIZ ATION 11/26/2024 [facility] DATE CREATED AUTHOR AUTHOR'S ORGANIZ ATION 12/25/2024 [facility] DATE CREATED AUTHOR AUTHOR'S ORGANIZ ATION 01/11/2025 [facility] EPIC Care Teams (unrecognized sec tion and content) Team Status: Active Member Role Status Dates Xavier Robbins MD Primary Care Provider Active Team Status: Inactive Member Role Status Dates Xavier Robbins MD Primary Care Provider Active Start: November 24, 2024 End: November 24, 2024Skip Garcia JEOVANY, MDAttending ProviderActiveStart: November 24, 2024 End: November 24, 2024 Team Status: Active Member Role Status Dates Xavier Robbins MD Primary Care Provider Active Start: November 24, [address] Jose THAYER, MDAttending ProviderActiveStart: November 24, 2024 Team Status: Inactive Member Role Status Dates Dario Forman MD Admit Provider, Attending Provider A ctive [facility] ProviderActiveTeam MemberRelationshipSpecialty Start DateEnd Date Xavier Robbins MD [address] [place] [phone] PCP - Goxmbuo30/25/22Team MemberRelationshipSpecialtyStart DateEnd Date Xavier Robbins MD [address] [facility] [place] [phone] PCP - Ofzavpi09/25/22Team MemberRelationshipSpecialtyStart DateEnd Date Xavier Robbins MD [address] [facility] [place] [phone] PCP - Ufqtajt44/25/22Team MemberRelationshipSpecialtyStart DateEnd Date Xavier Robbins MD [address] [facility] [place] [address] PCP - Zjbezut17/25/22Team MemberRelationshipSpecialtyStart DateEnd Date Xavier Robbins MD [address] [phone] (Fax) PCP - [facility]04/20/21 Xavier Robbins MD [address] [address] (Fax) PCP - GeneralFamily Medicine09/25/22 Alberto Canales MD [address] [address] Referring PhysicianCardiology08/04/23 Dilia Kilpatrick, RN Registered NurseFamily Medicine08/05/23Team MemberRelationshipSpecialtyStart Date End Date Xavier Robbins MD [address] [place] [address] (Fax) PCP - [facility]04/20/21 Xavier Robbins MD [address] [place] [address] (Fax) PCP - Generalmi Medicine09/25/22 Alberto Canales MD [address] [address] Referring PhysicianCardiology08/04/23 Dilia Kilpatrick, KERI Registered NurseLaw[facility] Medicine08/05/23Team MemberRelationshipSpecialtyStart Date End Date Xavier Robbins MD [address] [phone] PCP - Wfgtoie35/25/22Team MemberRelationshipSpecialtyStart DateEnd Date Xavier Robbins MD [address] [place] [address] (Fax) PCP - [facility]04/20/21 Xavier Robbins MD [address] [place] [phone] PCP - GeneralFamily Medicine09/25/22 Alberto Canales MD [address] [phone] (Fax) Referring PhysicianCardiology08/04/23 Dilia Kilpatrick, KERI Reg[facility]08/05/23Team MemberRelationshipSpecialtyStart Date End Date Xavier Robbins MD (Fax) PCP - Generalmily Medicine09/25/22 Alberto Canales MD [address] [place] [phone] (Fax) Referring PhysicianCardiology08/04/23 Dilia Kilpatrick RN Registered NurseP[facility]08/05/23Te MemberRelationshipSpecialtyStart Date End Date Xavier Robbins MD (Fax) PCP - [facility] Medicine09/25/22 Alberto Canales MD [address] [place] [phone] (Fax) Referring PhysicianCardiology08/04/23 Dilia Kilpatrick RN Registered NurseP[facility]08/05/23Te MemberRelationshipSpecialtyStart Date End Date Xavier Robbins MD (Fax) PCP - [facility]Law[facility] Medicine09/25/22 Alberto Canales MD [address] [place] [phone] (Fax) Referring PhysicianCardiology08/04/23 Dilia Kilpatrick, KERI Registered [facility] Medicine08/05/23Team MemberRelationshipSpecialtyStart Date End Date Xavier Robbins MD (Fax) PCP - [facility] Medicine09/25/22 Alberto Canales MD [address] [facility] [address], [address] [place] [address] (Fax) Referring PhysicianCardiology08/04/23Team MemberRelationshipSpecialtyStart Date End Date Xavier Robbins MD (Fax) PCP - [facility] Medicine09/25/22 Alberto Canales MD [address] [facility] [address], [address] [place] [address] (Fax) Referring PhysicianCardiology08/04/23Team MemberRelationshipSpecialtyStart Date End Date Xavier Robbins MD (Fax) PCP - [facility] Medicine09/25/22 Alberto Canales MD [address] [facility] [address], [address] [place] [address] Referring PhysicianCardiology08/04/23Team MemberRelationshipSpecialtyStart Date End Date Xavier Robbins MD (Fax) PCP - [facility] Medicine09/25/22 Alberto Canales MD [address] [facility] [address] [place] [address] Referring PhysicianCardiology08/04/23Team MemberRelationshipSpecialtyStart Date End Date Xavier Robbins MD (Fax) PCP - [facility]09/25/22 Alberto Canales MD [address] [facility] [address] [place] [address] Referring PhysicianCardiology08/04/23Team MemberRelationshipSpecialtyStart Date End Date Xavier Robbins MD (Fax) PCP - [facility]09/25/22 Alberto Canales MD [address] [place] [address] [address], [address] [place] [address] Referring PhysicianCardiology08/04/23Team MemberRelationshipSpecialtyStart Date End Date Xavier Robbins MD (Fax) PCP - [facility]09/25/22 Alberto Canales MD [address] [facility] [address] [place] [address] Referring PhysicianCardiology08/04/23Team MemberRelationshipSpecialtyStart Date End Date Xavier Robbins MD [address] [phone] (Fax) PCP - [facility]11/15/24 Alberto Canales MD [address] [place] [address] [address], [address] [place] [address] Referring PhysicianCardiology08/04/23Team MemberRelationshipSpecialtyStart Date End Date Xavier Robbins MD [address] [place] [address] (Fax) PCP - [facility] Medicine11/15/24 Alberto Canales MD [address] [facility] [address] [place] [address] Referring PhysicianCardiology08/04/23Team MemberRelationshipSpecialtyStart Date End Date Xavier Robbins MD [address] [place] [address] (Fax) PCP - [facility]11/15/24 Alberto Canales MD [address] [facility] [address] [place] [address] Referring PhysicianCardiology08/04/23 Team Status: Inactive Member Role Status Dates Xavier Robbins MD Primary Care Provider Active Start: December 22, 2024 End: December 22, 2024Robcara Garcia II, MDAttending ProviderActiveStart: December 22, 2024 End: December 22, 2024Team MemberRelationshipSpecialtyStart DateEnd Date Xavier Robbins MD [address] [place] [address] (Fax) PCP - [facility] Medicine11/15/24 Xavier Robbins MD [address] [place] [address] (Fax) PCP - [facility]04/20/24 Alberto Canales MD [address] [facility] [address] [place] [address] Referring PhysicianCardiology08/04/23Team MemberRelationshipSpecialtyStart Date End Date Xavier Robbins MD [address] [place] [address] (Fax) PCP - Generalmily Medicine11/15/24 Xavier Robbins MD [address] [place] [address] (Fax) PCP - [facility]04/20/24 Alberto Canales MD [address] [facility] [address] [place] [address] Referring PhysicianCardiology08/04/23 Team Status: Inactive Member Role Status Dates Xavier Robbins MD Primary Care Provider Active Start: January 20, 2025 End: January 20, 2025Robcara Garcia II MDAttending ProviderActiveStart: January 20, 2025 End: January 20, 2025Team MemberRelationshipSpecialtyStart DateEnd Date Xavier Robbins MD [address] [place] [address] (Fax) PCP - [facility]04/20/2211 Xavier Robbins MD [address] [place] [address] (Fax) PCP - Generalmily Medicine Xavier Robbins MD [address] [place] [address] (Fax) PCP - Generalmily Medicine11/15/24 Xavier Robbins MD [address] [facility] [address] [place] [address] PCP - [facility]04/20/24 Alberto Canales MD [address] [facility] [address] [place] [address] Referring PhysicianCardiology08/04/23 Dilia Kilpatrick RN [address] [place] [address] Registered NurseFamily Medicine Skip Garcia MD [address] [place] [address] Referring PhysicianOrthopaedic Uwvcitn31/20/25 Antonia Hull PA [address] [place] [address] Physician AssistantOrthopaedic Wujkcmq25/20/25 REASON FOR VISIT (unrecogniz ed section and content) ReasonCommentsFollow-uc0tMgwyxvOyztfrtrBlyhcf FibrillationSpecialtyDiagnoses / ProceduresReferred By ContactReferred To ContactCardiology Diagnoses Paroxysmal atrial fibrillation (Multi) ASHD (arteriosclerotic heart disease) Cardiomyopathy, ischemic Procedures Transthoracic Echo Complete Transthoracic Echo Complete KS ECHO TTHRC R-T 2D W/WOM-MODE COMPL SPEC&COLR D Gus Malik, DIRECTOR SOFTWARE DEVELOPMENT-SINTER FEEDER [address] [facility] [address] [place] [address] Referral IDStatusReasonStart DateExpiration DateVisits RequestedVisits [id number] Perform Procedure [id number] ResultsReasonCommentsAnnual Exam ReasonCommentsAnnual ExamSpecialtyDiagnoses / ProceduresReferred By Contact Referred To ContactCardiology Diagnoses ASHD (arteriosclerotic heart disease) History of myocardial infarction Status post insertion of drug eluting coronary artery stent Procedures Follow Up In Cardiology Gama Canales, [address] [facility], [place] [id number] Phone: tel: fax: Gama Canales, DO [address] [facility], [address] [place] [address] Phone: tel: fax: Referral IDStatusReasonStart DateExpiration DateVisits RequestedVisits [id number]/1/202310/31/[id number] HyperlipidemiaRestless LegsReasonCommentsMed RefillReasonCommentsKnee PainReason CommentsHip PainReasonCommentsPainReasonCommentsFollow-upFallReasonComments Suture / Staple RemovalReasonCommentsCOPDAnxietyUrinary Incontinence Goals (unrecognized section and content) Goals may be documented in a n alternate section FOR RECORDS PERTAINING TO PATIENTS WHO ARE [...] BE BASED ON THE PRIMARY CLINICAL RECORDS. [employer] provides no warranty or guarantee of the accuracy or completeness of information in this document.
[2025-02-26 09:40] LABS: Hematocrit 32.4 % (36.0-48.0); Hemoglobin 10.7 g/dL (12.0-16.0); Mean Corpuscular HGB Conc 33.0 g/dL (29.9-35.2); Mean Corpuscular Hemoglobin 28.8 pg (26.7-34.0); Mean Corpuscular Volume 87.3 fL (81.0-99.0); Platelet Count 280 10^3/uL (150-450); Red Blood Count 3.71 10^6/uL (4.20-5.40); White Blood Count 15.8 10^3/uL (4.0-11.0)
[2025-02-26] MEDS: 0.9 % SODIUM CHLORIDE 1,000 ML 1000 ML IV (09:41)
[2025-02-26 09:44] LABS: Glucose Urine UA NEGATIVE (NEGATIVE)
[2025-02-26 10:02] LABS: Cast Seen? NONE SEEN #/LPF (NONE SEEN); Crystals Seen? None Seen #/HPF (None Seen); Urine Culture Indicated YES-FRMC
[2025-02-26 10:05] LABS: Basophils Abs Manual 0.15 10^3/uL (0.00-0.10); Basophils Percent Manual 1.0 % (0.2-2.0); Eosinophils Absolute Manual 0.15 10^3/uL (0.00-0.70); Eosinophils Percent Manual 1.0 % (0.9-7.0); Lymphocytes Absolute Manual 0.79 10^3/uL (1.20-3.80); Lymphocytes Percent Manual 5.0 % (20.5-60.0); Monocytes Absolute Manual 1.10 10^3/uL (0.30-0.80); Monocytes Percent Manual 7.0 % (1.7-12.0); Segmented Neut Absolute Manual 13.58 10^3/uL (1.4-6.5); Segmented Neutrophils % Manual 86.0 (43.0-75.0)
[2025-02-26 10:06] LABS: Toxic Vacuolation 1+
[2025-02-26 10:07] LABS: Lactate/Lactic Acid 1.3 mmol/L (0.4-2.0)
--- NOTE | 2025-02-26 10:08 | CT_ITS ---
[address] [address] Patient Name: LEIA EWING MRN: [id number] date: 1950 Sex: F Assigned Patient Location: ED.MAIN Current Patient Location: ED.MAIN Accession/Order Number: [id number] Exam Date: 02/26/2025 10:36 Report Date: 02/26/2025 11:55 At the request of: MYRON MARES DO Procedure: CT abdomen pelvis w con CT abdomen pelvis w con 02/26/2025 11:04 AM SIGNS AND SYMPTOMS: ^AMS, UTI \S.br\ TECHNIQUE: Multidetector ct axial images of the abdomen and pelvis were obtained with IV contrast. Multiplanar reformats were performed and reviewed to further define anatomy and possible pathology. CT was performed with one or more of the following dose reduction techniques: Automated exposure control, adjustment of the mA and/or kV according to patient size, or use of iterative reconstruction technique. COMPARISON: None. FINDINGS: Lower Chest: Atherosclerotic changes are noted in the coronary arteries and thoracic aorta. ABDOMEN: Liver: Within normal limits. Bile Ducts: Normal caliber. Gallbladder: No calcified gallstones. Normal caliber wall. Pancreas: Within normal limits. Spleen: Within normal limits. Adrenals: Within normal limits. Kidneys: There is a simple cyst in the left renal cortex requiring no further follow-up. Pelvis: Reproductive Organs: No pelvic masses. Ureters: Within normal limits. Bladder: The bladder is partially obscured secondary to hardware artifact from hip arthroplasty. There is mild bladder wall thickening with fat stranding along the anterior wall the bladder suspicious for cystitis. Bowel: Normal caliber. There is a normal appendix in the right lower quadrant. Mesenteric Lymph Nodes: No enlarged mesenteric lymph nodes. Peritoneum: No ascites or free air, no fluid collection. Vessels: Atherosclerotic changes are noted in the abdominal aorta and its branches. Retroperitoneum: Within normal limits. Abdominal Wall: Within normal limits. Bones: Degenerative changes are noted in the thoracolumbar spine. There is total hip arthroplasty bilaterally. CT/CT abdomen pelvis w con IMPRESSION: The bladder is partially obscured secondary to hardware artifact from hip arthroplasty. There is mild bladder wall thickening with fat stranding along the anterior wall the bladder suspicious for cystitis. Additional chronic appearing findings are noted as above. Impression dictated by: Justus Johnson M.D. 02/26/2025 11:55 AM Dictation Location: [place] [address] Electronically authenticated by: [id number] Y Date: 02/26/2025 11:55
--- NOTE | 2025-02-26 10:08 | PC.NURSE ---
DAUGHTER CONCERNED FOR PT'S PAIN AND IS REQUESTING PAIN MEDICATION. INFORMED DAUGHTER THAT WE DO HAVE SOMETHING ORDERED BUT WANTS TO WAIT UNTIL HEAD CT IS COMPLETED D/T BEING ON BLOOD THINNER.
[2025-02-26] MEDS: HYDROMORPHONE HCL 0.5 MG/0.5 ML SYRINGE IV ×2 (10:13→11:20)
[2025-02-26 10:14] LABS: Alanine Aminotransferase 14 U/L (14-59); Albumin Globulin Ratio 0.6; Albumin Level 2.7 g/dL (3.4-5.0); Alkaline Phosphatase 110 U/L (46-116); Anion Gap 17.6; Aspartate Amino Transferase 13 U/L (15-37); Blood Urea Nitrogen 13.0 mg/dL (7.0-18.0); Calcium 9.1 mg/dL (8.5-10.1); Carbon Dioxide 21.5 mmol/L (21.0-32.0); Chloride 101 mmol/L (98-107); Estimated GFR (African America >60 (>=60 mL/min/1.73m^2); Estimated GFR (Non-African Ame 54 (>=60 mL/min/1.73m^2); Globulin 4.4 g/dL; Glucose 169 mg/dL (74-106); Potassium 4.1 mmol/L (3.5-5.1); Sodium 136 mmol/L (136-145); Total Protein 7.1 g/dL (6.4-8.2)
--- NOTE | 2025-02-26 12:34 | PC.NURSE ---
hospitalist at bedside
--- NOTE | 2025-02-26 12:38 | ED.GENADUL1 ---
HPI HPI - General Adult General Chief complaint: Altered Mental Status Stated complaint: neck pain Time Seen by Provider: 02/26/25 09:06 Source: medical record and other Source information: ems Mode of arrival: ambulance Limitations: altered mental status History of Present Illness HPI narrative: Patient is a 74-year-old female, history significant for dementia, presenting to the emergency department for evaluation of altered mental status and possible UTI. The daughter is also concerned that the patient was complaining of back pain over the last few days. Patient has a history of dementia and recurrent UTIs resulting in sepsis. The patient has reportedly been declining in her function over the last few days. She is now refusing to go out of bed and take her medications. She also seems to be more confused at her baseline. No history of trauma. She is on Eliquis, but has not taken her medication in 2 days. The patient herself is oriented x 3 but does not express any acute complaints to me. Related Data Home Medications ?Medication ?Instructions ?Recorded ?Confirmed atorvastatin 80 mg tablet 80 mg PO DAILY 07/12/23 02/26/25 calcium carbonate (Antacid 200 mg PO DAILY 07/12/23 07/19/23 (calcium carbonate)) gabapentin 600 mg tablet 600 mg PO DAILY 07/12/23 02/26/25 losartan 100 mg tablet 100 mg PO DAILY 07/12/23 02/26/25 montelukast 10 mg tablet 10 mg PO DAILY 07/12/23 02/26/25 nitroglycerin 0.4 mg sublingual 0.4 mg sublingual Q5M 07/12/23 02/26/25 tablet omeprazole 20 mg capsule,delayed 20 mg PO DAILY 07/12/23 02/26/25 release sertraline 100 mg tablet 100 mg PO Q24H 07/12/23 02/26/25 albuterol 90 mcg/actuation aerosol 90 mcg inhalation TID 02/26/25 02/26/25 inhaler albuterol nebulizer 2.5 mg inhalation .Q6HR PRN 02/26/25 02/26/25 shortness of breath or wheezing ascorbic acid (vitamin C) 500 mg 500 mg PO DAILY 02/26/25 02/26/25 capsule aspirin 81 mg capsule 81 mg PO .2 times per week 02/26/25 02/26/25 celecoxib 50 mg capsule (Celebrex) 50 mg PO BID 02/26/25 02/26/25 metoprolol succinate 50 mg 25 mg PO DAILY 02/26/25 02/26/25 tablet,extended release 24 hr Previous Rx's ?Medication ?Instructions ?Recorded apixaban 5 mg tablet (Eliquis) 5 mg PO BID 30 days #60 tabs 07/13/23 diltiazem HCl 300 mg 300 mg PO QD 30 days #30 caps 07/13/23 capsule,extended release 24 hr levofloxacin 500 mg tablet 500 mg PO DAILY 10 days #10 tabs 07/21/23 magnesium oxide 400 mg (241.3 mg 400 mg PO BID #60 tabs 07/21/23 magnesium) tablet Allergies Allergy/AdvReac Type Severity Reaction Status Date / Time azithromycin Allergy Severe Verified 07/12/23 10:52 Opioid HPI Opioid Management Most Recent Opioid Data: Last Pain Scale 4 07/21/23, 09:00 Last Pain Intensity 7 07/20/23, 10:49 Last ORT Total Score 0 07/19/23, 14:29 Last ORT Risk Category Low Risk 07/19/23, 14:29 Review of Systems ROS Status of ROS 10 or more systems reviewed and unremarkable except as noted in history and below [facility] Medical History (Updated 02/26/25 @ 12:18 by ) Bacterial UTI ?N39.0 - Urinary tract infection, site not specified (ICD-10) ?A49.9 - Bacterial infection, unspecified (ICD-10) Muscular deconditioning ?R29.898 - Other symptoms and signs involving the musculoskeletal system (ICD-10) Arthritis of shoulder ?M19.019 - Primary osteoarthritis, unspecified shoulder (ICD-10) Acute hypotension ?I95.9 - Hypotension, unspecified (ICD-10) UTI (urinary tract infection) ?N39.0 - Urinary tract infection, site not specified (ICD-10) Depression ?F32.A - Depression, unspecified (ICD-10) Hyperlipidemia ?E78.5 - Hyperlipidemia, unspecified (ICD-10) CAD (coronary artery disease), [place] coronary artery ?I25.10 - Atherosclerotic heart disease of [place] coronary artery without angina pectoris (ICD-10) Constipation ?K59.00 - Constipation, unspecified (ICD-10) Asthma ?J45.909 - Unspecified asthma, uncomplicated (ICD-10) Myocardial infarct ?I21.9 - Acute myocardial infarction, unspecified (ICD-10) HTN (hypertension), benign ?I10 - Essential (primary) hypertension (ICD-10) Surgical History History of hip replacement, total ?Z96.649 - Presence of unspecified artificial hip joint (ICD-10) Social History Within the past year, how often did you have a drink containing alcohol: never Score interpretation: A score less than 3 is consistent with normal alcohol consumption. 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 EYES: No conjunctival pallor. EARS, NOSE, THROAT: Dry mucous membranes. RESPIRATORY: Clear to auscultation bilaterally, no wheezes, crackles, or stridor, no use of accessory muscles CARDIOVASCULAR: Tachycardic rate and regular rhythm. There is no S3, S4, murmur, rub. GASTROINTESTINAL: Abdomen was soft, non-tender, and non-distended. There is no guarding or rebound tenderness MUSCULOSKELETAL: There is reproducible tenderness to palpation throughout the paraspinal muscles of the neck. No peripheral edema. No nuchal rigidity. The neck is supple. She is not following commands well enough to test active range of motion. However, she has full passive range of motion in the neck. NEUROLOGIC: Moving all 4 extremities equally. Oriented x 3. Facies were symmetrical. Constitutional Vital Signs, click to edit/add: Last Vital Signs Temp 97.7 F 02/26/25 09:05 Pulse 101 H 02/26/25 09:50 Resp 25 H 02/26/25 09:50 BP 128/75 02/26/25 09:38 Pulse Ox 98 02/26/25 09:50 O2 Del Method Room Air 02/26/25 09:05 Course Vital Signs Vital signs: Vital Signs Temperature 97.7 F 02/26/25 09:05 Pulse Rate 106 H 02/26/25 09:05 Respiratory Rate 22 H 02/26/25 09:05 Blood Pressure 122/47 L 02/26/25 09:05 Pulse Oximetry 95 02/26/25 09:05 Oxygen Delivery Method Room Air 02/26/25 09:05 Temperature 97.7 F 02/26/25 09:05 Pulse Rate 101 H 02/26/25 09:50 Respiratory Rate 25 H 02/26/25 09:50 Blood Pressure 128/75 02/26/25 09:38 Pulse Oximetry 98 02/26/25 09:50 Oxygen Delivery Method Room Air 02/26/25 09:05 Medical Decision Making MDM Narrative Medical decision making narrative: Patient is a 74-year-old female, history significant for dementia, presenting to the emergency department from home for concerns of decline in function and possible UTI. Her vital signs on arrival are significant for mild tachycardia, otherwise within normal limits. She is afebrile and hemodynamically stable. Examination as noted above. Differential diagnose includes UTI, pneumonia, intra-abdominal infections, intracranial hemorrhage, or other electrolyte/metabolic derangement. Though the daughter was concerned for neck pain, she has no nuchal rigidity or meningeal signs to suggest meningitis. There is pain throughout the neck, therefore CT was ordered to rule out fracture or evidence of soft tissue infection. IV was established and laboratory studies were obtained. She was given 1 L normal saline, IV ketorolac, and IV Dilaudid for pain. Laboratory studies were significant for her urinary tract infection. She has a leukocytosis of 15.8. She is anemic but at her baseline. No significant electrolyte or metabolic derangements otherwise. No evidence of acute renal injury. No lactic acidosis. Troponin nonelevated. CT abdomen/pelvis independently reviewed and interpreted by myself and radiology demonstrated mild bladder wall thickening with fat stranding along the anterior wall suspicious for cystitis. CT C-spine demonstrated no evidence of acute fracture or subluxation. There is heterogenous enlargement of the left thyroid lobe, recommend ultrasound to rule out malignancy. I did discuss these findings with the daughter. CT head independently reviewed/interpreted by myself demonstrated no acute intracranial pathology or hemorrhage. Chest x-ray independently reviewed/interpreted by myself demonstrated no acute cardiopulmonary process. 12 Lead EKG: Normal sinus rhythm at a rate of 102. Normal axis. No ST segment elevations. QRS, MD, and QTc interval within normal limits. Unchanged compared to prior EKG. Final impression: normal sinus rhythm without evidence of acute myocardial ischemia At this point the workup, appears of the patient's presentation is secondary to UTI. Given patient's comorbidities, I do believe she warrants admission to the hospital for treatment. She was given 1 g of IV ceftriaxone for empiric treatment and blood cultures were obtained. I did discuss the patient with hospitalist, Dr. Bautista. He evaluated the patient at the bedside and had further discussion with the family. He did offer the patient an LP to rule out meningitis, however the family states that they rather wait for an MRI of the neck before proceeding. He also recommended an additional 1 g of IV ceftriaxone for meningeal coverage. He did accept the patient to his service. FINAL IMPRESSION: #Acute UTI #Acute neck pain #History of dementia DISPOSITION: Admitted to the hospital CONDITION: Fair Medical Records Medical records reviewed: Yes I reviewed the patient's medical records Lab Data Lab results reviewed: Yes I reviewed the patient's lab results Labs: Lab Results 02/26/25 02/26/25 Range/Units 09:24 09:30 WBC 15.8 H (4.0-11.0) 10^3/uL RBC 3.71 L (4.20-5.40) 10^6/uL Hgb 10.7 L (12.0-16.0) g/dL Hct 32.4 L (36.0-48.0) % MCV 87.3 (81.0-99.0) fL MCH 28.8 (26.7-34.0) pg MCHC 33.0 (29.9-35.2) g/dL RDW 13.7 (11.0-15.0) % Plt Count 280 (150-450) 10^3/uL MPV 10.1 (9.5-13.5) fL Seg Neuts % (Manual) 86.0 H (43.0-75.0) Lymphocytes % (Manual) 5.0 L (20.5-60.0) % Monocytes % (Manual) 7.0 (1.7-12.0) % Eosinophils % (Manual) 1.0 (0.9-7.0) % Basophils % (Manual) 1.0 (0.2-2.0) % Neutrophils # (Manual) 13.58 H (1.4-6.5) 10^3/uL Lymphocytes # (Manual) 0.79 L (1.20-3.80) 10^3/uL Monocytes # (Manual) 1.10 H (0.30-0.80) 10^3/uL Eosinophils # (Manual) 0.15 (0.00-0.70) 10^3/uL Basophils # (Manual) 0.15 H (0.00-0.10) 10^3/uL Toxic Vacuolation 1+ Sodium 136 (136-145) mmol/L Potassium 4.1 (3.5-5.1) mmol/L Chloride 101 (98-107) mmol/L Carbon Dioxide 21.5 (21.0-32.0) mmol/L Anion Gap 17.6 BUN 13.0 (7.0-18.0) mg/dL Creatinine 1.00 (0.55-1.02) mg/dL Est GFR ( Amer) >60 (>=60 mL/min/1.73m^2) Est GFR (Non-Af Amer) 54 L (>=60 mL/min/1.73m^2) BUN/Creatinine Ratio 13.0 Glucose 169 H (74-106) mg/dL Lactate 1.3 (0.4-2.0) mmol/L Calcium 9.1 (8.5-10.1) mg/dL Total Bilirubin 1.4 H (0.2-1.0) mg/dL AST 13 L (15-37) U/L ALT 14 (14-59) U/L Alkaline Phosphatase 110 (46-116) U/L Troponin I High Sens 8.4 (4.0-51.3) pg/mL Total Protein 7.1 (6.4-8.2) g/dL Albumin 2.7 L (3.4-5.0) g/dL Globulin 4.4 g/dL Albumin/Globulin Ratio 0.6 Urine Color Lt. yellow (YELLOW) Urine Clarity Slightly cloudy A (CLEAR) Urine pH 7.0 (5.0-9.0) Ur Specific [place] 1.015 (1.005-1.025) Urine Protein Trace (NEG/TRACE) mg/dL Urine Glucose (UA) Negative (NEGATIVE) mg/dL Urine Ketones Trace A (NEGATIVE) mg/dL Urine Occult Blood Negative (NEGATIVE) Urine Nitrite Positive A (NEGATIVE) Urine Bilirubin Negative (NEGATIVE) Urine Urobilinogen 0.2 (0.2-1.0) EU/dL Ur Leukocyte Esterase Small A (NEGATIVE) Urine RBC 2-5 A (0-2) #/HPF Urine WBC 10-20 A (NONE SEEN) #/HPF Ur Squamous Epith Cells Few A (NONE/RARE) #/LPF Urine Crystals None seen (None Seen) #/HPF Urine Bacteria Large A (NONE SEEN) #/HPF Urine Casts None seen (NONE SEEN) #/LPF Urine Mucus None seen (NONE SEEN) Ur Culture Indicated? Yes-[facility] Imaging Data Chest x-ray: Attestation: I personally reviewed and interpreted this imaging study as follows: Radiologist's impression: ITS Impressions Cervical Spine CT 02/26/25 09:07 IMPRESSION: No fracture or subluxation. Degenerative changes are noted throughout cervical spine as above. There is heterogeneous enlargement of the left thyroid lobe. Nonemergent ultrasound correlation is recommended as malignancy is not excluded. Impression dictated by: Justus Johnson M.D. 02/26/2025 11:52 AM Dictation Location: [facility] Electronically authenticated by: [id number] Y Date: 02/26/2025 11:52 Chest X-Ray 02/26/25 09:07 IMPRESSION: No acute cardiopulmonary pathology. Impression dictated by: Justus Johnson M.D. 02/26/2025 11:48 AM Dictation Location: [facility] Electronically authenticated by: [id number] Y Date: 02/26/2025 11:[address] 02/26/25 09:07 IMPRESSION: No acute intracranial pathology. Mild chronic atherosclerotic changes are noted. Impression dictated by: Justus Johnson M.D. 02/26/2025 10:59 AM Dictation Location: [facility] Electronically authenticated by: [id number] Y Date: 02/26/2025 10:59 Abdomen/Pelvis CT 02/26/25 10:08 IMPRESSION: The bladder is partially obscured secondary to hardware artifact from hip arthroplasty. There is mild bladder wall thickening with fat stranding along the anterior wall the bladder suspicious for cystitis. Additional chronic appearing findings are noted as above. Impression dictated by: Justus Johnson M.D. 02/26/2025 11:55 AM Dictation Location: [place] [address] Electronically authenticated by: [id number] Y Date: 02/26/2025 11:55 ECG Data Attestation: I personally reviewed and interpreted this ECG as follows: Discharge Plan Discharge Chief Complaint: Altered Mental Status Clinical Impression: Altered mental status, Strain of neck muscle, Acute UTI Patient Disposition: Admitted As Inpatient Time of Disposition Decision: 12:17 Condition: Fair
--- NOTE | 2025-02-26 12:39 | MR_ITS ---
[facility] [place] [id number] Patient Name: LEIA EWING MRN: [id number] date: 1950 Sex: F Assigned Patient Location: MS Current Patient Location: MS Accession/Order Number: [id number] Exam Date: 02/26/2025 11:20 Report Date: 02/27/2025 14:06 At the request of: MARGE MORROW MD Procedure: MR cervical spine wo con MR cervical spine wo con 02/27/2025 11:45 AM SIGNS AND SYMPTOMS: ^Pain PROTOCOL: Sagittal T2 MR images of the cervical spine COMPARISON: 02/26/2025 FINDINGS: Limited MR images of the cervical spine were obtained. This study was terminated early due to patient discomfort. The bones of the cervical spine are in anatomic alignment. There is preservation of vertebral body heights. There is moderate disc height loss at C6-C7 with mild disc height loss at C3-C4 and C5-C6. Facet hypertrophy is redemonstrated throughout cervical spine. There is thickening of the transverse ligament of the lateral axial joint. The marrow signal is within normal limits. The cord is normal in signal. No epidural or paraspinous fluid collection is appreciated. The visualized paraspinous soft tissues are within normal limits. The prevertebral soft tissues are within normal limits. MR/MR cervical spine wo con IMPRESSION: Limited MR images of the cervical spine were obtained. This study was terminated early due to patient discomfort. Similar degenerative changes are noted, C5-C6, and C6-C7. Limited images show no evidence of cord compression or cord signal abnormality. Impression dictated by: Justus Johnson M.D. 02/27/2025 2:06 PM Dictation Location: [place] [address] Electronically authenticated by: [id number] Y Date: 02/27/2025 14:06
--- NOTE | 2025-02-26 12:51 | PM.HP ---
HPI H&P: HPI History of Present Illness Chief complaint: neck pain, UTI, AMS Narrative: Mrs. Almeida is a 74-year-old female with a known diagnosis of dementia. Patient is also known to have recurrent UTI. Patient was brought in by her daughter for an evaluation. Patient is unable to provide any meaningful conversation. Her daughter at the bedside Terrie stated that she is the POA. Terrie stated that she noticed increased confusion over the last few days. Patient is able to stand up and take a few steps on her own using a walker but she became very weak. Patient also reported having neck pain. No witnessed fall or trauma. Patient has fairly preserved ability to understand simple questions and answer appropriately. Patient is able to focus and slightly engage. Patient denies any chest or abdominal pain. Patient has chronic arthritis as reported by her daughter and has scattered diffuse pain and ache all the time. Workup in the emergency room showed urinary tract infection. CAT scan of the abdomen showed bladder wall thickening and fat stranding suspicious for cystitis. CAT scan of the neck showed no evidence of a fracture but positive for degenerative changes. Opioid HPI Opioid Management Most Recent Pain and Opioid Data: Last Pain Scale 4 07/21/23, 09:00 Last Pain Intensity 7 07/20/23, 10:49 Last ORT Total Score 0 07/19/23, 14:29 Last ORT Risk Category Low Risk 07/19/23, 14:29 Review of Systems ROS Status of ROS 10 or more systems reviewed and unremarkable except as noted in history and below [facility] Medical History (Updated 02/26/25 @ 12:18 by ) Bacterial UTI ?N39.0 - Urinary tract infection, site not specified (ICD-10) ?A49.9 - Bacterial infection, unspecified (ICD-10) Muscular deconditioning ?R29.898 - Other symptoms and signs involving the musculoskeletal system (ICD-10) Arthritis of shoulder ?M19.019 - Primary osteoarthritis, unspecified shoulder (ICD-10) Acute hypotension ?I95.9 - Hypotension, unspecified (ICD-10) UTI (urinary tract infection) ?N39.0 - Urinary tract infection, site not specified (ICD-10) Depression ?F32.A - Depression, unspecified (ICD-10) Hyperlipidemia ?E78.5 - Hyperlipidemia, unspecified (ICD-10) CAD (coronary artery disease), [place] coronary artery ?I25.10 - Atherosclerotic heart disease of [place] coronary artery without angina pectoris (ICD-10) Constipation ?K59.00 - Constipation, unspecified (ICD-10) Asthma ?J45.909 - Unspecified asthma, uncomplicated (ICD-10) Myocardial infarct ?I21.9 - Acute myocardial infarction, unspecified (ICD-10) HTN (hypertension), benign ?I10 - Essential (primary) hypertension (ICD-10) Surgical History History of hip replacement, total ?Z96.649 - Presence of unspecified artificial hip joint (ICD-10) Social History Within the past year, how often did you have a drink containing alcohol: never Score interpretation: A score less than 3 is consistent with normal alcohol consumption. 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 Known occupational exposures/hazards: No Highest level of school completed/degree received: Associate degree: occupational, technical, vocational program Meds Home Medications and Allergies Home Medications ?Medication ?Instructions ?Recorded ?Confirmed ?Type atorvastatin 80 mg tablet 80 mg PO DAILY 07/12/23 02/26/25 History calcium carbonate (Antacid 200 mg PO DAILY 07/12/23 07/19/23 History (calcium carbonate)) gabapentin 600 mg tablet 600 mg PO DAILY 07/12/23 02/26/25 History losartan 100 mg tablet 100 mg PO DAILY 07/12/23 02/26/25 History montelukast 10 mg tablet 10 mg PO DAILY 07/12/23 02/26/25 History nitroglycerin 0.4 mg sublingual 0.4 mg sublingual Q5M 07/12/23 02/26/25 History tablet omeprazole 20 mg capsule,delayed 20 mg PO DAILY 07/12/23 02/26/25 History release sertraline 100 mg tablet 100 mg PO Q24H 07/12/23 02/26/25 History apixaban 5 mg tablet (Eliquis) 5 mg PO BID 30 days #60 tabs 07/13/23 02/26/25 Rx diltiazem HCl 300 mg 300 mg PO QD 30 days #30 caps 07/13/23 07/19/23 Rx capsule,extended release 24 hr levofloxacin 500 mg tablet 500 mg PO DAILY 10 days #10 tabs 07/21/23 Rx magnesium oxide 400 mg (241.3 mg 400 mg PO BID #60 tabs 07/21/23 02/26/25 Rx magnesium) tablet albuterol 90 mcg/actuation aerosol 90 mcg inhalation TID 02/26/25 02/26/25 History inhaler albuterol nebulizer 2.5 mg inhalation .Q6HR PRN 02/26/25 02/26/25 History shortness of breath or wheezing ascorbic acid (vitamin C) 500 mg 500 mg PO DAILY 02/26/25 02/26/25 History capsule aspirin 81 mg capsule 81 mg PO .2 times per week 02/26/25 02/26/25 History celecoxib 50 mg capsule (Celebrex) 50 mg PO BID 02/26/25 02/26/25 History metoprolol succinate 50 mg 25 mg PO DAILY 02/26/25 02/26/25 History tablet,extended release 24 hr Allergies Allergy/AdvReac Type Severity Reaction Status Date / Time azithromycin Allergy Severe Verified 07/12/23 10:52 Exam Narrative Exam Narrative: Patient is lying in bed. Patient does not appear in distress. She has features of her mental disability. She is looking at the ceiling. Her daughter is standing at the bedside. Patient is awake and alert. Patient is not lethargic. Patient is able to answer yes or no questions with accuracy and consistency. Patient is able to look at me and focus when I was talking to her daughter. Patient is able to follow commands. Fairly symmetrical motor and tone however generalized weakness and fatigue. Unable to stand up and ambulate on her own. Her daughter stated that her mental status is not far from baseline. Patient has tenderness at the cervical spine posteriorly. Patient has paraspinal muscle spasm preventing passive flexion of the neck. Chest is clear, heart is regular mildly tachycardic. Abdomen soft, nontender lower extremities no edema. Patient is able to lift up her legs against gravity but not against resistance. Constitutional Vital Signs, click to edit/add: Last Vital Signs Temp 97.7 F 02/26/25 09:05 Pulse 101 H 02/26/25 09:50 Resp 25 H 02/26/25 09:50 BP 128/75 02/26/25 09:38 Pulse Ox 98 02/26/25 09:50 O2 Del Method Room Air 02/26/25 09:05 Results Labs Labs: Short CBC 02/26/25 Range/Units 09:30 WBC 15.8 H (4.0-11.0) 10^3/uL Hgb 10.7 L (12.0-16.0) g/dL Hct 32.4 L (36.0-48.0) % Plt Count 280 (150-450) 10^3/uL BMP 02/26/25 09:30 Sodium 136 Potassium 4.1 Chloride 101 Carbon Dioxide 21.5 BUN 13.0 Creatinine 1.00 Glucose 169 H Calcium 9.1 Liver Function 02/26/25 Range/Units 09:30 Total Bilirubin 1.4 H (0.2-1.0) mg/dL AST 13 L (15-37) U/L ALT 14 (14-59) U/L Alkaline Phosphatase 110 (46-116) U/L Albumin 2.7 L (3.4-5.0) g/dL Urine 02/26/25 Range/Units 09:24 Urine Color Lt. yellow (YELLOW) Urine Clarity Slightly cloudy A (CLEAR) Urine pH 7.0 (5.0-9.0) Ur Specific [place] 1.015 (1.005-1.025) Urine Protein Trace (NEG/TRACE) mg/dL Urine Glucose (UA) Negative (NEGATIVE) mg/dL Assessment and Plan Assessment and Plan (1) Acute UTI: (2) Strain of neck muscle: (3) Altered mental status: Plan Subtle altered mental status. This has been going on for 3 to 4 days at least As described above, patient maintains ability to focus and answer simple questions. Her daughter stated that her mental status is not far from baseline. I suspect that patient has degree of metabolic encephalopathy secondary to sepsis and UTI. Clinically I could not exclude the possibility of viral or bacterial meningitis although less likely given the fact that her symptoms has been going on for the last several days and the patient maintains her ability to communicate despite her baseline significant dementia. I discussed this with her daughter Terrie who is the POA. I informed her that the only way we can diagnosed her meningitis is by performing a lumbar puncture. I explained what lumbar puncture is. I also informed her that patient could have other possible etiologies for her neck pain including but not limited to herniated disc, muscle spasm, strain, epidural abscess, epidural hematoma. I explained other potential etiologies for her subtle altered mentation including sepsis and UTI Her daughter Terrie understood conversation very well but clearly stated that she does not want her mom to have lumbar puncture at this time. She would like to wait until an MRI is completed tomorrow understanding potential implication. I will order MRI of the cervical spine rule out herniated disc or other less likely possibilities such as osteomyelitis, discitis, Less likely epidural abscess or hematoma I would hold off her Eliquis at this time. Requested blood culture to rule out bacteremia. I will treat her with intravenous ceftriaxone 2 g every 24 hours UTI, cystitis, early sepsis present on admission. Sepsis manifested by tachycardia, tachypnea and leukocytosis. Lactic is normal. Previously patient grew pansensitive E. coli. Continue ceftriaxone 2 g daily. Requested urine and blood culture. Dementia Her daughter stated that the patient has had dementia for several years. She is able to take care of her basic needs but unable to take care of her advanced daily living. She needs assistance and supervision [id number]. Patient has been able to stand up and ambulate a few steps with a walker prior to this acute illness. Surprisingly despite evidence of underlying early sepsis, patient maintains her ability to focus, stay connected understand and answer simple questions with accuracy and consistency. Thyroid enlargement seen on CT Check TSH. Patient will need additional thyroid imaging that the potential to be done in the outpatient setting. Chronic, subacute medical conditions not listed above, abnormal labs and imaging, incidental findings seen on labs and or imaging. These would need to be addressed. Could be addressed later on or in the outpatient setting by PCP collaboration with other needed outpatient providers when time and condition are appropriate. Goals of care discussion Advance care planning Patient has fairly preserved cognition to understand basic questions and basic conversation. Patient however is unable to engage in complex conversation related to CODE STATUS Her daughter Padma is the POA. I had 20 minutes conversation with Padma regarding her overall condition, potential differential diagnoses as listed above and needed additional diagnostic and therapeutic intervention. I explained in simple terms the difference between full code, CCA and CC. I explained in basic terms of the difference between aggressive versus comfort care approach in terms of diagnostic and therapeutic intervention. Padma stated that she does not want her mom to receive any heroic measures or resuscitative effort such as cardiac shocks, chest compression, intubation life support. Furthermore, Terrie stated that she does not want her mom to receive any aggressive medical care whether it is related to diagnostic approach or treatment approach. She clearly stated that she wants her mom to receive care that is intended for comfort and comfort care only. As stated above, Terrie declined to permit for LP. Her wishes are aligned with DNRCC status. I change her CODE STATUS accordingly. I will respect and honor her wishes and will not put her mom through any aggressive testing. Urinary Catheter Management Urinary Catheter Management Straight: Cath placed during this visit: yes Urethral indwelling: No Insertion date: 02/26/25
--- OUTSIDE RECORDS SUMMARY | 2025-02-26 12:58 | XMS_ITS | CCD ---
Author Organization [facility] ion Partnership [facility] Care Team Providers Care Retail Analytics Manager Name Role Phone MD Dario Forman Admit Provider MD Dario Forman Attending Provider [phone] MD Xavier Robbins Primary Care Provider [phone] DR XAVIER ROBBINS Primary Care Unavailable FABIANA [...] Unavailable Xavier Robbins MD Primary Care Provider [phone] Xavier Robbins MD Unavailable [phone] Xavier Robbins MD Primary Care Provider [phone] Xavier Robbins MD Primary Care Provider GUS MALIK Attending Unavailable XAVIER ROBBINS Primary Care Unavailable GUS MALIK Referring Unavailable XAVIER ROBBINS Primary Care Unavailable GUS MALIK Attending Unavailable XAVIER ROBBINS Primary Care Unavailable GAMA CANALES Attending Unavailable GAMA CANALES Referring Unavailable XAVIER ROBBINS Primary Care Unavailable Alberto Canales MD Unavailable Xavier Robbins MD Primary Care Provider Xavier Robbins MD Primary Care Provider Skip Garcia MD Attending Provider [phone] Skip Garcia II Attending Unavailabl e Jose THAYER, Skip Way Admitting Unavailabl e Xavier Robbins Primary Care Unavailable Skip Garcia II Attending Unavailabl e Jose THAYER, Skip Way Admitting Unavailabl e Xavier Robbins Primary Care Unavailable Xavier Robbins MD Unavailable [phone] XAVIER ROBBINS Attending Unavailable HEMEXAVIER ROSSI [...] ROBBINS Attending Unavailable Xavier Robbins MD Unavailable [phone] Xavier Robbins MD Primary Care Provider [phone] Alberto Canales MD Unavailable Shonna SAAVEDRA, Dilia Unavailable Skip Garcia MD Unavailable Antonia Gutiérrez Unavailable Allergies Allergy ClassificationReported Allergen(s)Allergy TypeDate of OnsetReaction(s) FacilityMacrolides (antibiotic) (2 sources)Azithromycin; Translations: [AZITHROMYCIN]Drug Mvmfgin16-77-8553[facility] Repositorynickel (1 source)nickel; Translations: [NICKEL]Drug Fnwdbow58-08-6456[facility] (6 sources)Neomycin; Translations: [Neomycin]Drug Yejddkv10-58-0756Aesauiq ReactionTrihealth Good Samaritan Hospital (20 sources)nickel; Translations: [Nickel]Drug Kbgoena84-64-2404imex, [facility] (20 sources)erythromycin base; Translations: [Erythromycin Base]Allergy to eyfykewds65-40-3441Hfireoq Reaction, Unknown Reaction, hivesTrihealth Good Samaritan Hospital (20 sources)Azithromycin; Translations: [Azithromycin TABS]Drug Allergy 08-53-0649DxozfnizCcimttzwszPomerene Hospital (4 sources)Erythromycin; Translations: [ERYTHROMYCIN]Drug Prqodzj40-46-3622nmwipParkview Health (20 sources)Ejzfq-Nfety-Lvcdupu-PramoxineDrug ixwfuek41-42-2664xqca,[facility] WiN MS Other (20 sources)Mold ExtractDrug Ikbgtpu83-59-3354DP[facility] (1 source)Azithromycin; Translations: [AZITHROMYCIN]Drug Lsbpdtk53-63-4455[facility] 3 Repository Medications Current Medications MedicationDrug [...] tablet (20 sources)Factor Xa InhibitorStart: 07-13-2023 End: 98-96-8911ohmd 1 tablet by mouth in the morningEliquis [...] sources)Platelet Aggregation Inhibitor, Nonsteroidal Anti-inflammatory Drug Start: 33-43-6237llxr 1 tablet by mouth once dailyAspirin 81 mg tablet Active 81 MG PO Daily November 24, 2024 12:00am Complies with drug therapyStart: 82-13-0995kfau 1 tablet by mouth two times weeklyaspirin 81 mg chewable tablet Indications: ASHD (arteriosclerotic heart disease) Take one tablet bymouth twice a week 30 08/19/2023 ActiveStart: 03-14-2022 End: 28-41-5757kmua 1 tablet by mouth once dailyAspirin (Children's Aspirin) 81 mg Tablet,Chewable Active 81 MG PO Daily March 14, 2022 1:00am Complies with drug therapy End: 67-65-1484zume 1 tablet by mouth two times weeklyaspirin 81 MG EC tablet Take 81 mg by mouth 2 (two) times a week Active End: 44-67-2939oizg 1 tablet by mouth once dailyaspirin 81 mg EC tablet Take 1 tablet (81 mg) by mouth once daily. 08/19/2023 Discontinued (Dose adjustment) atorvastatin 80 mg oral tablet (20 sources)HMG-CoA Reductase InhibitorStart: 03-14-2022 End: 00-35-5932cmxq 1 tablet by mouth once daily in the eveningAtorvastatin 80 mg Tablet Active 80 MG PO Every evening March 14, 2022 1:00am Complies withdrug therapycefuroxime 250 mg oral tablet (2 sources)Cephalosporin AntibacterialStart: 01-10-2025 End: 68-54-0389pyez 1 tablet by mouth in the morningcefuroxime (Ceftin) 250 MG tablet Indications: Acute cystitis without hematuria Take 1 tablet (250 mg) by mouth in the morning and 1 tablet (250 mg) before bedtime. Do all this for 5 days. 10 tablet 01/10/2025 01/15/2025 Activecelecoxib 100 mg oral capsule (20 sources)Nonsteroidal Anti-inflammatory Drug End: 71-18-0288iuvhsycck (CeleBREX) 100 MG capsule Take 50 mg by mouth in the morning and 50 mg in the evening. Active End: 11-42-2560twexegcjl (CeleBREX) 200 mg capsule Take by mouth [...] oral tablet (20 sources)Anti-epileptic AgentStart: 03-13-2022 End: 07-05-9180rncw 1 tablet by mouth at bedtimeGabapentin 600 mg tablet Active 600 MG PO Bedtime March 13, 2022 1:00am Complies with drug therapylosartan potassium 100 mg oral tablet (20 sources)Angiotensin 2 Receptor BlockerStart: 08-06-2017 End: 26-68-8327qhjc 1 tablet by mouth once dailyLosartan 100 [...] 80 mg/ml injection (8 sources)CorticosteroidStart: 08-23-2024 End: 68-90-1272zbssrtLYVFCIWjbopv acetate (DEPO-Medrol) injection 80 mgStart: 08-23-2024 End: 38-07-2160ppdjbvGRKEVFMjqqdh acetate (DEPO-Medrol) injection 80 mgStart: 08-23-2024 End: 44-36-9207xkynjzXCDEAQQnmoql acetate (DEPO-Medrol) injection 80 mgStart: 08-23-2024 End: 16-58-7328dokwwbAXMYINKmutey acetate (DEPO-Medrol) injection 80 mgStart: 08-23-2024 End: 80-58-610098 mg, Intra-articular, Once, On Thu08/23/24 at 1415, For 1 dose Start: 08-23-2024 End: 12-09-307596 mg, Intra-articular, Once, On Thu08/23/24 at 1415, For 1 dose Start: 08-23-2024 End: 42-46-779326 mg, Intra-articular, Once, On Thu08/23/24 at 1415, For 1 dose Start: 08-23-2024 End: 74-33-339141 mg, Intra-articular, Once, On Thu08/23/24 at 1415, For 1 dose24 hr metoprolol succinate 50 mg extended release oral tablet (20 sources)beta-Adrenergic BlockerStart: 12-09-2023 End: 74-96-5375bynk 0.5 tablet by mouth once dailymetoprolol succinate XL (Toprol-XL) 50 MG 24 hr tablet Indications: Benign essential hypertension Take 0.5 tablets (25 mg) by mouth Daily 45 tablet 1 11/23/2024 05/22/2025 Active Start: 07-13-2023 End: 49-06-3631mvaq 1 tablet by mouth once dailymetoprolol succinate XL (Toprol- XL) 50 MG 24 hr tablet Take 25 mg by mouth Daily 07/13/2023 12/09/2023 Discontinued (Reorder)Start: 03-14-2022 End: 27-87-6639mcjv 1 tablet by mouth twice dailyMetoprolol Tartrate 25 mg tablet Active 25 MG PO Twice daily 60 March 14, 2022 1:00am Complieswith drug therapytake 1 tablet by mouth once dailymetoprolol succinate XL (Toprol-XL) 25 mg 24 hr tablet Take 1 tablet (25 mg) by mouth once daily. Do not crush or chew. Active End: 11-36-8206ymsr 1 tablet by mouth once dailymetoprolol succinate XL (Toprol- XL) 50 mg 24 hr tablet Take 1 tablet (50 mg) by mouth once daily. Do not crush or chew. 04/01/2024 Discontinued (Dose adjustment)take 1 capsule by mouth once dailyMetoprolol Succinate 25 MG 1 capsule Orally Once a day Activemontelukast 10 mg oral tablet (20 sources)Leukotriene Receptor AntagonistStart: 03-13-2022 End: 71-46-6427wolr 1 tablet by mouth once dailyMontelukast 10 [...] topical ointment (1 source)RNA Synthetase Inhibitor AntibacterialStart: 63-58-7855Yxgfvnuln 2 % 1 application Externally Three times a day for 7 days Dec, Active nitroglycerin 0.4 mg sublingual tablet (20 sources)Nitrate VasodilatorStart: 11-17-4071Vnsnmjksycvcf 0.4 mg Tablet, Sublingual Active 0.4 MG [...] tablet (20 sources)Cholinergic Muscarinic AntagonistStart: 03-13-2022 End: 07-59-3411jdso 1 tablet by mouth twice dailyOxybutynin Chloride 5 mg tablet Active 5 MG PO Twice daily March 13, 2022 1:00am Complies withdrug therapy sulfamethoxazole 800 mg / trimethoprim 160 mg oral tablet (3 sources)Dihydrofolate Reductase Inhibitor Antibacterial, Sulfonamide AntimicrobialStart: 10-27-2024 End: 55-85-8375szio 1 tablet by mouth once in the morning, then take 1 tablet by mouth once at bedtimesulfamethoxazole-trimethoprim (Bactrim DS) 800-160 MG per tablet Indications: Cellulitis of left upper extremity Take 1 tablet by mouth in the morning and 1 tablet before bedtime. Do all this for 7 days. 14 tablet 10/27/2024 11/03/2024 Activeticagrelor 90 mg oral tablet (11 sources)Start: 03-14-2022 End: 65-03-1226jyoq 1 tablet by mouth twice dailyTicagrelor (Brilinta) 90 mg Tablet Active 90 MG PO Twice daily 60 30 March 14, 2022 1:00am Complies with drug therapytraMADol hydrochloride 50 mg oral tablet (4 sources)Opioid AgonistStart: 09-16-2023 End: 18-39-9436bfxy 1 tablet by mouth every eight hours [...] 500 mg oral capsule (1 source)Penicillin-class AntibacterialStart: 54-95-7202Xwbgkzympsq 500 MG 4 capsules one time, take 45 min-1 hr prior to planned dental procedure Orally On ce a day for 1 day(s) Feb, Not-Takingcalcium carbonate 1250 mg oral tablet (2 sources) End: 13-06-7149cecy 1 tablet by mouth once dailycalcium carbonate (Oscal) 500 mg calcium (1,250 mg) tablet Take 1 tablet (1,250 mg) by mouth once daily. 08/19/2023 Discontinued (Therapy completed)24 hr dilTIAZem hydrochloride 300 mg extended release oral capsule (3 sources)Calcium Channel BlockerStart: 07-13-2023 End: 76-00-6713qagt 1 capsule by mouth once daily, then [...] Placard 1 year 1 year (1 source)Start: 13-57-2978Asewmqao Placard 1 year 1 year 1 misc daily for 1 year *please review for potential _update for e-prescription and drug interaction check* M54.5 Low Back Pain Dec, Not-TakingHandicap Placard 5 year 5 year (1 source)Start: 59-00-8370Mflybfnl Placard 5 year 5 year 1 misc daily for 5 year *please review for potential _update for e-prescription and drug interaction check* Sep, Not-TakingHandicap Plaquard 1 (1 source)Start: 84-53-8244Xriyroub Plaquard 1 use 1 placard as directed for 6 months for 180 days *please review for potential _update for e-prescription and drug interaction check* Feb, Not-Takingipratropium bromide 0.2 mg/ml inhalation solution (1 source)AnticholinergicStart: 89-31-3741nwyo 2.5 mL by inhalation every eight hours as neededIpratropium [place] 0.02 % 2.5 ml Inhalation every 8 hrs as needed using [facility], Rx Bin [id number], [id number] Membber ID [id number] Mar, Not-Takingmeloxicam 15 mg oral tablet (1 source)Nonsteroidal Anti-inflammatory Drugtake 1 tablet by mouth every twenty-four hoursMeloxicam 15 MG 1 tablet Orally Once a day for 90 days Not-TakingNiacin (1 source)Nicotinic AcidStart: 65-97-2190Ertvcv SR 500 mg as directed daily *please review for potential _update for e-prescription and druginteraction check* 3 daily Jan, Not-Takingsertraline 100 mg oral tablet (20 sources)Serotonin Reuptake InhibitorStart: 04-28-2024 End: 98-32-9157zxfx 1 tablet by mouth once dailysertraline (Zoloft) 100 MG tablet Indications: Recurrent major depressive disorder, in partial remission Take 1 tablet (100 mg) by mouth Daily 90 tablet 1 07/12/2024 01/10/2025 Discontinued (Reorder)Start: 09-16-2023 End: 59-13-2949xwkl 1 tablet by mouth once dailysertraline (Zoloft) 100 MG tablet Indications: Recurrent major depressive disorder, in partial remission (HCC) (CMS/HCC) Take 1 tablet (100 mg) by mouth Daily 90 tablet 1 09/16/2023 Active Problems Active Problems Problem ClassificationProblemDateDocumented DateEpisodic/ChronicAsthma (20 sources)Unspecified asthma, uncomplicated; Translations: [Mild intermittent asthma]Onset: 149439-48-1898QqcaindGkvdvqz dysrhythmias (20 sources)Paroxysmal atrial fibrillation; Translations: [Paroxysmal atrial fibrillation]Onset: 157869-62-5900AkfavgyUzxdkfk kidney disease (20 sources)Chronic kidney disease stage 2; Translations: [Chronic kidney disease, stage 2 (mild)]Onset: 099782-85-2084JebbwlhKcwacid obstructive pulmonary disease and bronchiectasis (20 sources)Simple chronic bronchitis; Translations: [Simple chronic bronchitis] Onset: 208511-83-3761JjyluxeZslzdqxo atherosclerosis and other heart disease (20 sources)Coronary arteriosclerosis; Translations: [Coronary atherosclerosis of unspecified type of vessel, [place] or graft]Onset: 10-07-2022 Resolved: 466968-11-3458KqrwjfgJyygqcqlj of lipid metabolism (20 sources)Hyperlipidemia; Translations: [Other and unspecified hyperlipidemia] Onset: 455914-95-8734GjtzpalE Codes: Natural/environment (1 source)Bitten or stung by nonvenomous insect and other nonvenomous arthropods, initial encounterEpisodicEssential hypertension (20 sources)Hypertensive disorder; Translations: [Essential (primary) hypertension]Onset: 729727-00-9054IzvdvwwCtvvxzd on above:Problem List clean-up per request of Phys. EHR CmteGenitourinary symptoms and ill-defined conditions (20 sources)Urge incontinence of urine; Translations: [Urge incontinence]Onset: 219212-46-0994RekgibtNpcslmeitkuz with complications and secondary hypertension (20 sources)Hypertensive renal disease; Translations: [Hypertensive chronic kidney disease with stage 1 throughstage 4 chronic kidney disease, or unspecified chronic kidney disease]Onset: 062620-15-3375ZcmosveNxyr disorders (20 sources)Recurrent major depression in partial remission; Translations: [Major depressive disorder, recurrent, in partial remission]Onset: 10-07-2022 60-05-8219VwlhfnzNumfgtqhf of unspecified nature or uncertain behavior (1 source)Neoplastic disease of uncertain behavior; Translations: [Neoplasm of uncertain behavior, unspecified]23-97-6895FmjppvooCirldjxtfpp chest pain (3 sources)Chest pain, unspecified; Translations: [CHEST PAIN UNSPECIFIED]Onset: 92-59-9700VtrhbwigVphemwmbtnwvwj (20 sources)Inflammation of joints of bilateral shoulder regions; Translations: [Primary osteoarthritis, right shoulder]Onset: 765442-19-3154TrerzkuBzrfr aftercare (1 source)snf (current) use of aspirin; Translations: [BIRD TENDER 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 USE OF ASPIRIN]Onset: 05-45-0691IoyblhyiNrjta aftercare (1 source)Other jail (current) drug therapy; Translations: [OTH [facility] CURRENT DRUG THERAPY]Onset: 44-97-0419DnikfkzlLkcco aftercare (2 sources)Removal of sutures done; Translations: [Encounter for removal of sutures]39-25-0609JnlwefuuLpixr connective tissue disease (20 sources)History of repair of hip joint; Translations: [Presence of right artificial hip joint]Onset: 616229-66-2121FwqfbskZkvjg connective tissue disease (10 sources)History of total replacement of right hip joint; Translations: [Presence of right artificial hip joint]45-90-9578WddeehjHbsks connective tissue disease (1 source)Presence of right artificial hip joint; Translations: [Presence of right artificial hip joint]Onset: 68-92-7126EymvrcrNxizj hereditary and degenerative nervous system conditions (20 sources)Restless legs; Translations: [Restless legs syndrome]Onset: 075365-16-2279RmntnfxXeesi lower respiratory disease (7 sources)Dyspnea on exertion; Translations: [Shortness of breath]Onset: 321500-29-3315MtijvhtwKshbl lower respiratory disease (2 sources)Shortness of breath; Translations: [Shortness of breath]Onset: 19-99-4835AbxeqnsaSaxro nervous system disorders (20 sources)Difficulty walking; Translations: [Difficulty in walking, not elsewhere classified]Onset: 671447-40-9207XtwglkhRpsqm nervous system disorders (20 sources)Chronic pain syndrome; Translations: [Chronic pain syndrome]Onset: 337862-46-1292ExshkidYmhzm nervous system disorders (1 source)Other chronic pain; Translations: [Other chronic pain]Onset: 43-08-1176TnhwrhjAgeuc non-traumatic joint disorders (1 source)Chronic pain of right upper limb; Translations: [Pain in right shoulder]EpisodicOther non-traumatic joint disorders (6 sources)Hip pain; Translations: [Pain in right hip]42-85-1693PsqgngkjOacjz non-traumatic joint disorders (8 sources)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; Translations: [Pain in right hip]19-93-1010YrscqywdTkyra non-traumatic joint disorders (1 source)Pain in right hip; Translations: [Pain in right hip]Onset: 12-22-2024 EpisodicOther nutritional; endocrine; and metabolic disorders (8 sources)Obesity; Translations: [Obesity, unspecified]Onset: 02-18-2023 47-08-9593MvhnmpyOaaio nutritional; endocrine; and metabolic disorders (20 sources)Morbid obesity; Translations: [Morbid (severe) obesity due to excess calories]Onset: 525573-02-1519WmjhbggCeqro nutritional; endocrine; and metabolic disorders (2 sources)Obesity caused by energy imbalance; Translations: [Other obesity due to excess calories]80-94-2205QvtvqsjPtsjl nutritional; endocrine; and metabolic disorders (8 sources)Body mass index 30+ - obesity; Translations: [Body mass index (BMI) 34.0-34.9, adult]Onset: 460630-62-3215ZglpnvrIvydl nutritional; endocrine; and metabolic disorders (2 sources)Body mass index (BMI) 36.0-36.9, adult; Translations: [Body mass index (BMI) 36.0-36.9, adult]Onset: 81-58-5396ZczpesrGiirz nutritional; endocrine; and metabolic disorders (2 sources)Other obesity due to excess calories; Translations: [Other obesity due to excess calories]Onset: 08-05-7379XyhctlhQivwj nutritional; endocrine; and metabolic disorders (2 sources)Body mass index (BMI) 34.0-34.9, adult; Translations: [Body mass index (BMI) 34.0-34.9, adult]Onset: 89-53-9919XykfhlwKdvxs screening for suspected conditions (not mental disorders or infectious disease) (4 sources)Patient encounter status; Translations: [Encounter for screening for other disorder]16-87-8091BarpoqprMnauo skin disorders (1 source)Changing shape of pigmented skin lesion; Translations: [Disorder of pigmentation, unspecified]87-66-5933HnvkiipqCqiqi upper respiratory disease (20 sources)Allergic rhinitis due to pollen; Translations: [Allergic rhinitis due to pollen]Onset: 673917-49-9514EqnzjdsCrqvyuosm (20 sources)Left hemiparesis; Translations: [Hemiplegia, unspecified affecting left nondominant side]Onset: 303270-48-6651MxxqwyfWpoahdkc codes; unclassified (20 sources)Walking aid use - finding; Translations: [Dependence on other enabling machines and devices]Onset: 087030-29-5758TmquhxtVwseknlf codes; unclassified (1 source)Do not resuscitate; Translations: [DO NOT RESUSCITATE]Onset: 00-21-0141IrjcrvaeWviiputr codes; unclassified (2 sources)Active advance directive (copy within chart) ; Translations: [Other specified health status]96-16-2073BgdeixtpXgkauwes codes; unclassified (2 sources)Never smoked tobacco; Translations: [Other specified health status] Onset: 823056-85-6209XdepvfeiAdnrqhil codes; unclassified (2 sources)Other specified health status; Translations: [Other specified health status]Onset: 99-82-9405LbsmdgupIqrl and subcutaneous tissue infections (3 sources)Cellulitis of left upper limb; Translations: [Cellulitis of left upper limb]92-34-6165TymzfalnPfrmcrljuug; intervertebral disc disorders; other back problems (20 sources)Disorder of lumbar disc; Translations: [Other intervertebral disc displacement, lumbar region]Onset: 561821-51-2255ZaxkyqiTfkjtbltmaw injury; contusion (2 sources)Contusion of hip; Translations: [Contusion of right hip, initial encounter]35-33-9612ZzdnxvkyXvtrtlwuklza (1 source)Obesity, class 2; Translations: [Obesity, class 2]Onset: 02-18-2023 Unclassified (20 sources)Patient on antidepressant monitoring planOnset: Urinary tract infections (2 sources)Acute cystitis; Translations: [Acute cystitis without hematuria] 68-21-3545Kxnmjema Past or Other Problems Problem ClassificationProblemDateDocumented DateEpisodic/ChronicAcute myocardial infarction (20 sources)Myocardial infarction; Translations: [ST elevation (STEMI) myocardial infarction involving left circumflex coronary artery]Onset: 03-18-2022 Resolved: 757514-97-6467RbbgqtiJfkbmby on above:Problem List clean-up per request of Phys. EHR CmteCoronary atherosclerosis and other heart disease (20 sources)Stented coronary artery; Translations: [Presence of coronary angioplasty implant and graft]Onset: 897530-10-3253PmwkzlrlPsknqcr on above:Problem List clean-up per request of Phys. 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]Onset: 70-69-3828MjviypuwXomjp connective tissue disease (20 sources)Bicipital tendinitis, right shoulder; Translations: [Bicipital tenosynovitis]Onset: 999958-23-6171IsimrtbtRproa connective tissue disease (20 sources)Biceps tendinitis; Translations: [Bicipital tendinitis, left shoulder]Onset: 104257-45-9908JymcozaaQmsrqdizbqau (3 sources)Never smoked tobacco; Translations: [Never a smoker]Unclassified (20 sources)Onset: 02-18-2023 Resolved: 398505-19-3737Wtqxkavdzfhc (1 source)Obesity, class 2; Translations: [Obesity, class 2]Onset: 04-01-2024 Unclassified (2 sources)History of total replacement of right hip ivhfj98-26-5779 Results Test NameValueInterpretationReference RangeFacilityCT hip RT wo yaakovon 12-22-2024 CT hip RT wo [facility] [address] [address] [address] Scan Report Signed Patient: Leia Ewing MR#: [id number] 489 : 1950 Acct:[id number] Age/Sex: 74 / F ADM Date: 12/22/24 Loc: CT Room: Type: [facility] Attending Dr: Skip Garcia II, MD Copies [...] Boyd M.D. 12/22/2024 11:53 PM Dictation Location: [place] [address] Transcribed By: [facility] 12/22/24 2353 Dictated By: Teddy Boyd DO 12/22/24 2347 Signed By: 12/22/24 [facility], [id number] [phone] [Catalytic activity/Vol]13 U/LNormal6-29Quest DiagnosticsComment on above:Performed By: #### 7600, 822, 823 #### [facility] [address], [address] [place], [place] [id number] [employer] Sprayer: Sandro Cavazos [facility] 45-50-5678PGX [Catalytic activity/Vol]14 U/HDfiezg81-58Kpkfe DiagnosticsComment on above:Performed By: #### 7600, 822, 823 #### [facility] [address] [employer] Sprayer: Sandro Cavazos MDLIPID PANEL, [facility] 85-30-9001Irvxffmziac [Mass/Vol]165 mg/dLNormal<200Quest DiagnosticsComment on above:Order Comment: FASTING:YES FASTING: YESPerformed By: #### 7600, 822, 823 #### [facility] [address], [address] [place] [address] [employer] Spr[employer]: Sandro GALLOholesterol in HDL [Mass/Vol]66 mg/dLNormal> OR = 50Quest DiagnosticsComment on above:Order Comment: FASTING:YES FASTING: YESPerformed By: #### 7600, 822, 823 #### [facility] [address], [address] [place] [address] [employer] Spr[employer]: Sandro GALLOholesterol in LDL [Mass/Vol]77 mg/dLNormal Quest [...] LDL-C. Robert SS et al. ALEC. 2013;310(19): 3994-4261 (http://education.[employer]/faq/VOR002)Performed By: #### 7600, 822, 823 #### [facility] [address], [address] [place] [address] [employer] Spr[employer]: Sandro Conklinstyue.total/Cholesterol in HDL [Mass ratio]2.5 {ratio}Normal<5.0Quest DiagnosticsComment on above:Order Comment: FASTING:YES FASTING: YESPerformed By: #### 7600, 822, 823 #### [facility] [address], [address] [place] [address] [employer] Spr[employer]: Sandro DAVIS HDL XUQDSBNOWJT78 mg/dL (calc)Normal<130 Quest DiagnosticsComment on above:Order Comment: FASTING:YES FASTING: YESResult Comment: For patients with diabetes plus 1 major ASCVD risk factor, treating to a non-HDL-C goal of <100 mg/dL (LDL-C of <70 mg/dL) is considered a therapeutic option.Performed By: #### 7600, 822, 823 #### [facility] [address], [address] [place] [address] [employer] Sprayer: Sandro Cavazos MDTriglyceride [Mass/Vol]132 mg/dLNormal<150 Quest DiagnosticsComment on above:Order Comment: FASTING:YES FASTING: YESPerformed By: #### 7600, 822, 823 #### [facility] [address], [address] [place] [address] [employer] Sprayer: Sandro Cavazos MDX-ray reportOrdered By: Lalo Guy on 05-86-2862Sgleg reportMER[facility] [address] [place] [address] XRay Report Signed Patient: Leia Ewing MR#: [id number] : 1950 Acct:[id number] Age/Sex: 74 / F ADM Date: 5 [place] [facility] [place] Type[place] [facility] Attending Dr: Skip Garcia II, MD Copies to: Skip Garcia MD~ Ordering Provider: Skip Garcia MD Date of Service: 11/24/24 XR/XR hip RT min 2V(w/wo pelvis)*: Z96.641 - Presenceof right artificialhip joint RIGHT HIP - 2 views: CLINICAL HISTORY: Right-sided pain COMPARISON: None FINDINGS: Bilateral total hip arthroplasties with well aligned osseous components. No periprosthetic lucency is identified. Nbhf-jh-csqrlrnj spurringboth sacroiliac joints. Pelvis otherwise intact. XR/XR hip RT min 2V(w/wo pelvis)* IMPRESSION: NO ACUTE BONY INJURY. BILATERAL TOTAL HIP ARTHROPLASTIES WITH SATISFACTORY ALIGNMENT. Impression dictated by: Lalo Guy M.D. 11/24/2024 9:30 PM Dictation Location: [place] [address] Transcribed By: KAMRAN 08/11/11 2129 Dictated By: Lalo Guy MD 11/24/242128 Signed By: 11/24/242129 [facility] Work Phone: XR hip RT min 2V(w/wo pelvis)*on [id number] hip RT min 2V(w/wo pelvis)*[facility] [address] [place] [address] XRay Report Signed Patient: Leia Ewing MR#: [id number] : 1950 Acct:[id number] Age/Sex: 74 / F ADM Date: 11/24/24 [place] [facility] [place]: Type: [facility] Attending Dr: Skip Garcia II, MD Copies to: Skip Garcia MD Ordering Provider: Skip Garcia MD Date of Service: 11/24/24 XR/XR hip RT min 2V(w/wo pelvis)*: Z96.641 - Presence of right artificial hip joint RIGHT HIP - 2 views: CLINICAL HISTORY: Right-sided pain COMPARISON: None FINDINGS: Bilateral total hip arthroplasties with well aligned osseous components. No periprosthetic lucency is identified. Reab-jb-ooamqrdn spurring both sacroiliac joints. Pelvis otherwise intact. XR/XR hip RT min 2V(w/wo pelvis)* IMPRESSION: NO ACUTE BONY INJURY. BILATERAL TOTAL HIP ARTHROPLASTIES WITH SATISFACTORY ALIGNMENT. Impression dictated by: Lalo Guy M.D. 11/24/2024 9:30 PM Dictation Location: [place] [address] Transcribed By: [facility] 11/24/242129 Dictated By: Lalo Guy MD 11/24/242128 Signed By: 11/24/242129NoAtrium Health Lincoln Physician GroupNo Panel Informationon 44-85-1210Lriksbbwx report comments [Interpretation] NarrativeCANCELEDNOMS HealthcareComment on above:Result canceled by the ancillary.TISSUE PATHOLOGYon 11-18-2024 DIAGNOSISNormalQuest DiagnosticsComment on above:Result Comment: KERATOACANTHOMA (MARGINS CLEAR IN EXAMINED PLANE OF SECTIONS)Performed By: #### 3542 #### [facility] [place] [address], [place] [address] [employer] Sprayer: Edenilson Balderas GROSS DESCRIPTIONNormalQuest Diagnostics Comment on above:Result Comment: Received in 10% neutral buffered formalin is an unoriented excision of tissue measuring 25 x 10 x 8 mm. It was inked, sectioned into 9 segments, and submitted into 3 tissue block(s). This gross description meets regulatory standards for positive identification using two patient identifiers. /cat/cjsPerformed By: #### 3542 #### [facility] [place], [facility] [address], [place] [address] [employer]: Edenilson Balderas MICRO DESCRIPTIONNormalQuest Diagnostics Comment on above:Result Comment: The specimen displays a complex verrucous and cystic/crateriform architectural features with squamous epithelium showing focal keratinocyte atypia surrounding a keratin plug. The dermis is fibrotic and inflamed with background solar elastosis. /catPerformed By: #### 3542 #### [facility] [place] [address], [place] [address] [employer]: Edenilson Balderas PROCEDUREBIOPSYNormalQuest DiagnosticsComment on above:Performed By: #### 3542 #### [facility] [place], [facility] [address], [place] [address] [employer] Sprayer: Edenilson Balderas SOURCENormalQuest DiagnosticsComment on above: Result Comment: LEFT ARMPerformed By: #### 3542 #### [facility] [place], [facility] [address], [place] [address] [employer]: Edenilson Silverologist Cyto stain Nom (Cvx/Vag) [ID]Normal Quest DiagnosticsComment on above:Result Comment: Chloé Culver MD Board Certified in Clinical and Anatomic Pathology (electronic signature) For question regarding this report call [facility]. [phone] Pathologist Release Date/Time: 11/18/2024 06:35PMPerformed By: #### 3542 #### [facility] [place] [facility] [address], [address] [place] [address] [employer]: Edenilson Woo examon 11-18-2024 CLINICAL IMPRESSION CANCELEDNOIN HealthcareComment on above:Result canceled by the ancillary. Clinical informationCANCELEDTIMPANOGOS REGIONAL HOSPITAL HealthcareComment on above:Result canceled by the ancillary.Pathologist Cyto stain Nom (Cvx/Vag) [ID]NOMS HealthcareComment on above:Chloé Culver MD Board Certified in Clinical and Anatomic Pathology (electronic signature) For question regarding this report call [facility]. [phone] Pathologist Release Date/Time: 11/18/2024 06:35PM Pathology report final diagnosis NarrativeKERATOACANTHOMA (MARGINS CLEAR IN EXAMINED PLANE OF SECTIONS)[facility] HealthcarePathology report gross observation NarrativeTIMPANOGOS REGIONAL HOSPITAL HealthcareComment on above:Received in 10% neutral buffered formalin is an unoriented excision of tissue measuring 25 x 10 x 8 mm. It was inked, sectioned into 9 segments, and submitted into 3 tissue block(s). This gross description meets regulatory standards for positive identification using two patient identifiers. /cat/cjs Pathology report microscopic observation Narrative Other stainNOIN Healthcare Comment on above:The specimen displays a complex verrucous and cystic/crateriform architectural features with squamous epithelium showing focal keratinocyte atypia surrounding a keratin plug. The dermis is fibrotic and inflamed with background solar elastosis. /cat Procedure typeBIOPSYNOMS HealthcareReport typeCANCELEDNOIN HealthcareComment on above:Result canceled by the ancillary.Specimen source Nom (Unsp spec)LEFT ARM [facility] HealthcarePerforming Organization Information Site ID: [id number] Name: [facility] [place] [facility] Address: [address] [place] [address], [address] [place] [address] Director: Edenilson GarciaAscension St. Michael HospitalXR Hip - right 3 Viewson [id number] Result: AP and Lateral Right hip: AP [...] wear of line vs poly failure/ fracture [facility] Study observation (narrative)[facility] Hip - right 3 Viewson [id number]: XR HIP 2 OR 3 VW RIGHT [...] signed and approved by the interpreting Radiologist. [facility] Hip - right 3 ViewsOrdered By: Ana Valladares on [id number] Mary's Health Center Work Phone: XR HIP 2 OR 3 VW RIGHTon [id number] HIP 2 OR 3 VW RIGHTExam: XR [...] Radiologist.NormalNot AvailableXR Hip - right 3 Viewson [id number] Study observation (narrative)[facility] HealthcareCOMPREHENSIVE METABOLIC PANELon 24-85-3315Xkntuog [Mass/Vol]4.2 g/dLNormal3.6-5.1Quest DiagnosticsComment on above:Performed By: #### 7600 #### [facility] [address], [address] [place] [address] [employer]: Sandro Cavazos MD #### [id number] #### [facility] [address] [place], [place] [address] [employer]: Betsy Coreas FlatiAlbumin/Globulin [Mass ratio]1.6 {ratio}Normal 1.0-2.5Quest DiagnosticsComment on above:Performed By: #### 7600 #### [facility] [address], [address] [place] [address] [employer]: Sandro Cavazos MD #### [id number] #### [facility] [address] [place], [place] [address] [employer]: Betsy HeadleyiALP [Catalytic activity/Vol]87 U/WFswuni63-645 Quest DiagnosticsComment on above:Performed By: #### 7600 #### [facility] [address], [address] [place] [address] [employer]: Sandro Cavazos MD #### [id number] #### [facility] [address] [place] [address] [employer]: Betsy Coreas FlatiALT [Catalytic activity/Vol]15 U/LNormal6-29 Quest DiagnosticsComment on above:Performed By: #### 7600 #### [facility] [address], [address] [place] [address] [employer]: Sandro Cavazos MD #### [id number] #### [facility] [address] [place], [place] [address] [employer]: Betsy HeadleyiAST [Catalytic activity/Vol]13 U/TKsifxf48-93 Quest DiagnosticsComment on above:Performed By: #### 7600 #### [facility] [address], [address] [place] [address] [employer]: Sandro Cavazos MD #### [id number] #### [facility] [address] [place], [place] [address] [employer]: Betsy HeadleyiBilirubin [Mass/Vol]0.7 mg/dLNormal0.2-1.2 Quest DiagnosticsComment on above:Performed By: #### 7600 #### [facility] [address], [address] [place] [address] [employer]: Sandro Cavazos MD #### [id number] #### [facility] [address] [place] [address] [employer]: Betsy Coreas FlatiCalcium [Mass/Vol]9.4 mg/dLNormal8.6-10.4Quest DiagnosticsComment on above:Performed By: #### 7600 #### [facility] [address], [address] [place] [address] [employer]: Sandro Cavazos MD #### [id number] #### [facility] [address] [place] [address] [employer]: Betsy HeadleyiChloride [Moles/Vol]107 mmol/WBovlae27-144 Quest DiagnosticsComment on above:Performed By: #### 7600 #### [facility] [address], [address] [place] [address] [employer]: Sandro Cavazos MD #### [id number] #### [facility] [address] [place], [place] [address] [employer]: Betsy Coreas FlatiCO2 [Moles/Vol]28 mmol/LFufkgq00-27Pfkym DiagnosticsComment on above:Performed By: #### 7600 #### [facility] [address], [address] [place] [address] [employer]: Sandro Cavazos MD #### 53415 #### [facility] [address] [place], [place] [address] [employer]: Betsy Coreas FlatiCreatinine [Mass/Vol]1.13 mg/dLHigh0.60-1.00 Quest DiagnosticsComment on above:Performed By: #### 7600 #### [facility] [address], [address] [place] [address] [employer]: Sandro Cavazos MD #### 25402 #### [facility] [address] [place], [place] [address] [employer]: Betsy HeadleyiGFR/1.73 sq M.predicted among non-blacks MDRD (S/P/Bld) [Vol rate/Area]51 mL/min/{1.73_m2}Low> OR = 60Quest DiagnosticsComment on above:Performed By: #### 7600 #### [facility] [address], [address] [place] [address] [employer]: Sandro Cavazos MD #### 49232 #### [facility] [address] [place], [place] [address] [employer]: Betsy Coreas FlatiGlobulin (S) [Mass/Vol]2.6 g/dLNormal1.9-3.7 Quest DiagnosticsComment on above:Performed By: #### 7600 #### [facility] [address], [address] [place] [address] [employer]: Sandro Cavazos MD #### [id number] #### [facility] [address] [place] [address] [employer]: Betsy Coreas FlatiGlucose [Mass/Vol]113 mg/jXHgcq69-52Lqtpn DiagnosticsComment on above:Result Comment: Fasting reference interval For someone without known diabetes, a glucose value between 100 and 125 mg/dL is consistent with prediabetes and should be confirmed with a follow-up test.Performed By: #### 7600 #### [facility] [address], [address] [place] [address] [employer]: Sandro Cavazos MD #### 66406 #### [facility] [address] [employer]: Betsy Coreas FlatiPotassium [Moles/Vol]4.5 mmol/LNormal3.5-5.3 Quest DiagnosticsComment on above:Performed By: #### 7600 #### [facility] [address], [address] [place] [address] [employer]: Sandro Cavazos MD #### 23715 #### [facility] [address] [employer]: Betsy Coreas FlatiProtein [Mass/Vol]6.8 g/dLNormal6.1-8.1Quest DiagnosticsComment on above:Performed By: #### 7600 #### [facility] [place] [address] [employer]: Sandro Cavazos MD #### 31858 #### [facility] [address] [employer]: Betsy Coreas FlatiSodium [Moles/Vol]142 mmol/CRupcud289-828Apnvw DiagnosticsComment on above:Performed By: #### 7600 #### [facility] [address], [address] [place] [address] [employer]: Sandro Cavazos MD #### 46429 #### [facility] [address] [employer]: Betsy HeadleyiUrea nitrogen [Mass/Vol]23 mg/dLNormal7-25 Quest DiagnosticsComment on above:Performed By: #### 7600 #### [facility] [place] [address] [place] [address] [employer]: Sandro Cavazos MD #### 20334 #### [facility] [address] [place], [place] [address] [employer]: Betsy Mckay nitrogen/Creatinine [Mass ratio]20 mg/mg Normal-Quest DiagnosticsComment on above:Performed By: #### 7600 #### [facility] [address], [address] [place] [address] [employer]: Sandro Cavazos MD #### [id number] #### [facility] [address] [place], [place] [address] [employer]: Betsy ARITA [facility] 30-01-0587Fdnpezdltwl [Mass/Vol]206 mg/dLHigh<200Quest DiagnosticsComment on above:Order Comment: FASTING:YES FASTING: YESPerformed By: #### 7600 #### [facility] [address], [address] [place] [address] [employer]: Sandro Cavazos MD #### 89232 #### [facility] [address] [place], [place] [address] [employer]: Betsy HeadleyiCholesterol in HDL [Mass/Vol]59 mg/dLNormal> OR = 50Quest DiagnosticsComment on above:Order Comment: FASTING:YES FASTING: YESPerformed By: #### 7600 #### [facility] [address], [address] [place] [address] [employer]: Sandro Cavazos MD #### [id number] #### [facility] [address] [place], [place] [address] [employer]: Betsy HeadleyiCholesterol in LDL [Mass/Vol]121 mg/dLHigh Quest [...] LDL-C. Robert WHITTAKER et al. ALEC. 2013;310(19): 2781-4642 (http://[employer]/faq/ACJ617)Performed By: #### 7600 #### [facility] [address], [address] [place] [address] [employer]: Sandro Cavazos MD #### 10709 #### [facility] [address] [place], [place] [address] [employer]: Betsy Barba.total/Cholesterol in HDL [Mass ratio]3.5 {ratio}Normal<5.0Quest DiagnosticsComment on above:Order Comment: FASTING:YES FASTING: YESPerformed By: #### 7600 #### [facility] [address], [address] [place] [address] [employer]: Sandro Cavazos MD #### [id number] #### [facility] [address] [place] [address] [employer]: Betsy Beebe HDL FWHGAJBFHEB939 mg/dL (calc)High<130 Quest DiagnosticsComment on above:Order Comment: FASTING:YES FASTING: YESResult Comment: For patients with diabetes plus 1 major ASCVD risk factor, treating to a non-HDL-C goal of <100 mg/dL (LDL-C of <70 mg/dL) is considered a therapeutic option.Performed By: #### 7600 #### [facility] [address], [address] [place] [address] [employer]: Sandro Cavazos MD #### 87536 #### [facility] [address] [place] [address] [employer]: Betsy HeadleyiTriglyceride [Mass/Vol]151 mg/dLHigh<150Quest DiagnosticsComment on above:Order Comment: FASTING:YES FASTING: YESPerformed By: #### 7600 #### [facility] [address] [facility], [address] [place] [address] [employer]: Sandro Cavazos MD #### 39214 #### [facility] [address] [place] [address] [employer]: Betsy JaimeTHORACIC ECHO (TTE) COMPLETEon 09-04-2023 TRANSTHORACIC ECHO (TTE) [facility] [address] [place] [address], [address] [address] TRANSTHORACIC ECHOCARDIOGRAM REPORT Patient Name: LEIA DUCKWORTHCHRIS Reading Physician: [id number] Gama Herrera MD Study Date: 09/04/2023 Ordering Provider: [id number] GUS MALIK MRN/PID: [id number] Fellow: Nurse: Date of /Age: 7 1950 / 72 years 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, 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 Gender: F Additional Staff: Height: 175.26 cm Admit Date: Weight: 107.05 kg Admission Status: BSA / BMI: 2.22 m2 / 34.85 kg/m2 Department Location: [facility] Blood Pressure: 122 /68 mmHg Study Type: TRANSTHORACIC ECHO (TTE) COMPLETE Diagnosis/ICD: Paroxysmal atrial fibrillation-I48.0; Atherosclerotic heart disease of [place] coronary artery without angina pectoris-I25.10; Ischemic cardiomyopathy-I25.5 Indication: HTN, Hyperlipidemia, NH and PTCA-02/2022, Obesity, Shortness of Breath on Exertion CPT Codes: Echo Complete w Full Doppler-11356 Study Detail: The following Echo studies were [...] mmHg PIEDV: 1.76 m/s PADP: 15.4 mmHg [id number] Herrera MD Electronically signed on 09/04/2023 at 1:17:02 PM Final [facility] Center[facility]an[facility] (TTE) completeon 09-04-[address], [address] [place] [address] TRANSTHORACIC ECHOCARDIOGRAM REPORT Patient Name: LEIA EWING Reading Physician: [id number] Herrera MD Study Date: 09/04/2023 Ordering Provider: [id number] GUS MALIK MRN/PID: [id number] Fellow: Nurse: Date of /Age: 7 1950 / 72 years 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CS, RVT Gender: F Additional Staff: Height: 175.26 cm Admit Date: Weight: 107.05 kg Admission Status: BSA / BMI: 2.22 m2 / 34.85 kg/m2 Department Location: [facility] Blood Pressure: 122 /68 mmHg Study Type: TRANSTHORACIC ECHO (TTE) COMPLETE Diagnosis/ICD: Paroxysmal atrial fibrillation-I48.0; Atherosclerotic heart disease of [place] coronary artery without angina pectoris-I25.10; Ischemic cardiomyopathy-I25.5 Indication: HTN, Hyperlipidemia, NH and PTCA-02/2022, Obesity, Shortness of Breath on Exertion CPT Codes: Echo Complete w Full Doppler-04514 Study Detail: The following Echo studies were [...] mmHg PIEDV: 1.76 m/s PADP: 15.4 mmHg [id number] Gama Herrera MD Electronically signed on 09/04/2023 at 1:17:02 PM Final Radiology, Radiologist, - 09/04/[address], Suite [facility], [place] [address] TRANSTHORACIC ECHOCARDIOGRAM REPORT Patient Name: LEIA [place] Physician: [id number] Herrera MD Study Date: 09/04/2023 Ordering Provider: [id number] GUS MALIK MRN/PID: [id number] Fellow: Nurse: Date of /Age: 7 1950 / 72 years 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CS, RVT Gender: F Additional Staff: Height: 175.26 cm Admit Date: Weight: 107.05 kg Admission Status: BSA / BMI: 2.22 m2 / 34.85 kg/m2 Department Location: [facility] Blood Pressure: 122 /68 mmHg Study Type: TRANSTHORACIC ECHO (TTE) COMPLETE Diagnosis/ICD: Paroxysmal atrial fibrillation-I48.0; Atherosclerotic heart disease of [place] coronary artery without angina pectoris-I25.10; Ischemic cardiomyopathy-I25.5 Indication: HTN, Hyperlipidemia, NH and PTCA-02/2022, Obesity, Shortness of Breath on Exertion CPT Codes: Echo Complete w Full Doppler-45707 Study Detail: The following Echo studies were [...] mmHg PIEDV: 1.76 m/s PADP: 15.4 mmHg [id number] Gama Herrera MD Electronically signed on 09/04/2023 at 1:17:02 PM Final N[facility] HealthcareRadiology Study observation (narrative)[facility] Transthoracic echo (TTE) completeOrdered By: Radiologist Radiology on 09-04-2023 [facility] Work Phone: [facility] Heart TransthoracicOrdered By: Gama Herrera on 91-86-5118Uhdlnr Valve Area by Continuity of Peak Velocity2.23 go1KiacgahvvpSouthwest General Health Center Work Phone: [phone] Valve Area by Continuity of VTI1.83 cm2 [facility] Work Phone: [phone] mn grad3.0mmHgSouthwest General Health Center Work Phone: [phone] pk grad6.5mmMer[facility] Work Phone: [phone] pk vel1.27 m/[facility] Work Phone: [phone] A4C EF53.4[facility] Work Phone: [phone] [facility] Work Phone: [phone] diam2.20 [facility] Work Phone: MV avg E/e' ratio9.50[facility] Work Phone: MV E/A ratio1.19[facility] Work Phone: [phone] Memorial Hospital Work Phone: [phone] Transthoracicon 09-04-[address], [address] [place] [address] TRANSTHORACIC ECHOCARDIOGRAM REPORT Patient Name: LEIA [place] Physician: [id number] Gama Herrera MD Study Date: 09/04/2023 Ordering Provider: [id number] GUS MALIK MRN/PID: [id number] Fellow: Nurse: Date of /Age: 7 1950 / 72 years 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CS, RVT Gender: F Additional Staff: Height: 175.26 cm Admit Date: Weight: 107.05 kg Admission Status: BSA / BMI: 2.22 m2 / 34.85 kg/m2 Department Location: [facility] Blood Pressure: 122 /68 mmHg Study Type: TRANSTHORACIC ECHO (TTE) COMPLETE Diagnosis/ICD: Paroxysmal atrial fibrillation-I48.0; Atherosclerotic heart disease of [place] coronary artery without angina pectoris-I25.10; Ischemic cardiomyopathy-I25.5 Indication: HTN, Hyperlipidemia, NH and PTCA-02/2022, Obesity, Shortness of Breath on Exertion CPT Codes: Echo Complete w Full Doppler-83883 Study Detail: The following Echo studies were [...] mmHg PIEDV: 1.76 m/s PADP: 15.4 mmHg [id number] Gama Herrera MD Electronically signed on 09/04/2023 at 1:17:02 PM Final Gama Phillips MD - 09/04/2023 [facility] [address] 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CS, RVT Gender: F Additional Staff: Height: 175.26 cm Admit Date: Weight: 107.05 kg Admission Status: BSA / BMI: 2.22 m2 / 34.85 kg/m2 Department Location: [facility] Blood Pressure: 122 /68 mmHg Study Type: TRANSTHORACIC ECHO (TTE) COMPLETE Diagnosis/ICD: Paroxysmal atrial fibrillation-I48.0; Atherosclerotic heart disease of [place] coronary artery without angina pectoris-I25.10; Ischemic cardiomyopathy-I25.5 Indication: HTN, Hyperlipidemia, NH and PTCA-02/2022, Obesity, Shortness of Breath on Exertion CPT Codes: Echo Complete w Full Doppler-17805 Study Detail: The following Echo studies were [...] mmHg PIEDV: 1.76 m/s PADP: 15.4 mmHg [id number] Gama Herrera MD Electronically signed on 09/04/2023 at 1:17:02 PM Final [facility] Work Phone: Office Visit (Cardiology)on 89-79-2875Jaetvj-up visit Diagnoses/Problems Assessed ASHD (arteriosclerotic heart disease) [...] Weight Tips; Status:Complete - Retrospective Authorization; Done: [id number] Some eating tips that can help you lose weight.; Status:Complete - Retrospective Authorization; Done: [id number] SocHx: Never a smoker Tobacco Use Screening; Status:Complete; Done: [id number] Patient Instructions Please bring all medicines, vitamins, [...] usage or recurrent hospitalizations. [facility] primary PCI of the third OM [...] Recorded: 20Aug2022 11:17AM Heart Rate68, L Radial Ptaimunw730, LUE, Sitting Kvjgxnepn50, LUE, Sitting Height5 ft 9 in Lpxhlx399 lb BMI Pywionumkh20.18 kg/m2 BSA Calculated2.25 Tobacco Useb) No PHQ-2 [...] 2022 12:32PM EST (Author) NormalUH TouchworksTobacco Screening.on 17-93-9574Jlct risk assessmenta) No falls within the last yearMP-[facility] 250 DO Work Phone: Tobacco use status CPHSb) NoMP-[facility] [employer] 250 DO Work Phone: Tobacco Screening.Yes-[facility] 250 DO Work Phone: Office Visit (Cardiology)on 58-91-9594Hehvyx-up visit Diagnoses/Problems Assessed ASHD (arteriosclerotic heart disease) [...] Hold For - Scheduling,Retrospective Authorization Requested for: [id number] Agreement : I agree to have my [...] Weight Tips; Status:Complete - Retrospective Authorization; Done: [id number] Some eating tips that can help you lose weight.; Status:Complete - Retrospective Authorization; Done: [id number] SocHx: Never a smoker Tobacco Use Screening; Status:Complete; Done: [id number] Patient Instructions Please bring all medicines, vitamins, and herbal supplements with you when you come to the office. Prescriptions will not be filled unless you are compliant with your follow up appointments or have a follow up appointment scheduled as per instruction of your physician. Refills should be requested at the time of your visit. Fall prevention education given Cardiac rehab at [facility]. I recommend Omeprazole 20 mg Over the counter to help with protecting stomach. Or Zantac over the counter. Follow up in 6 months Chief Complaint LEIA EWING is being seen for follow-up of a hospitalization for. 71-year-old female follows up with me for the first time following recent inferolateral ST elevation [place] in February 2022 with primary PCI of [...] negative for complaint. Vitals Vital Signs Recorded: [id number] 08:53AM Heart Rate78, R Radial Bxlpwaez104, LUE, Sitting Unmmwmuvs98, LUE, Sitting Height5 ft 9 in Srjdqd057 lb (more content not included)...Normal[facility] TouchworksTobacco Screening.on 03-27-2022 [facility]Ye[facility] [employer] 250 DO Work Phone: Adult depression screening assessmentNoPullman Regional Hospital [employer] 250 DO Work Phone: Fall risk assessmentb) One or more falls in the last yearPullman [facility] Hospital [employer] 250 DO Work Phone: Tobacco use status CPHSb) [facility] [employer] 250 DO Work Phone: Basophils Auto (Bld) [#/Vol]Ordered By: Dario Forman on 39-82-5687Hkoadlwuu (Bld) [#/Vol]0.0 10*3/uL0.0-0.2FLouis Stokes Cleveland VA Medical CenterBasophils/100 WBC Auto (Bld)Ordered By: Dario Forman on 03-14-2022 Basophils/100 WBC (Bld)0.3 %.[facility] HospitalBody fluid albumin measurement (mass/volume)Ordered By: Dario Forman on 30-71-5903Zdkrgbz (Body fld) [Mass/Vol]3.4 g/dL3.2-5.5FLouis Stokes Cleveland VA Medical CenterCreatinine and Glomerular filtration rate.predicted panel (S/P/Bld)Ordered By: Dario Forman on 12-68-2496Ardifivlzv [Mass/Vol]0.99 mg/dL0.44-1.03[facility] HospitalEosinophils Auto (Bld) [#/Vol]Ordered By: Dario Forman on 03-14-2022 Eosinophils (Bld) [#/Vol]0.1 10*3/uL0.0-0.45[facility] Eosinophils/100 WBC Auto (Bld)Ordered By: Dario Forman on 03-14-2022 Eosinophils/100 WBC (Bld)0.7 %.[facility] HospitalErythrocyte distribution width Auto (RBC) [Ratio]Ordered By: Dario Forman on 03-14-2022 Erythrocyte distribution width (RBC) [Ratio]14.3 %11.9-15.3FLouis Stokes Cleveland VA Medical CenterEstimated glomerular filtration rate (GFR) non- Ordered By: Dario Forman on 08-81-7669OJI/1.73 sq M.predicted among non-blacks MDRD (S/P/Bld) [Vol rate/Area]55 mL/MinTrihealth Good Samaritan HospitalGlobulin Calc (S) [Mass/Vol]Ordered By: Dario Forman on 46-22-3965Ahdergpk (S) [Mass/Vol] 2.5 g/dLTrihealth Good Samaritan HospitalHematocrit Auto (Bld) [Volume fraction] Ordered By: Dario Forman on 62-58-4390Jjvdqquglb (Bld) [Volume fraction]37.1 % 34.0-46.4FLouis Stokes Cleveland VA Medical CenterHemoglobin [Mass/volume] in Blood Ordered By: Dario Forman on 85-49-7911Etzlufjmbl (Bld) [Mass/Vol]12.0 g/dL 11.8-15.4FLouis Stokes Cleveland VA Medical CenterLaboratory - Hematology and Cell countsOrdered By: Dario Forman on 41-69-5931Byytfltxz RBC/100 WBC (Bld) [Ratio] 0.0 %0-0.5FLouis Stokes Cleveland VA Medical CenterLeukocytes [#/volume] in Blood by Automated countOrdered By: Dario Forman on 51-01-6071GDC (Bld) [#/Vol]12.6 10*3/uL4.5-11.0[facility] HospitalLymphocytes Auto (Bld) [#/Vol] Ordered By: Dario Forman on 13-41-6441Evwqgqpjazy (Bld) [#/Vol]1.1 10*3/uL 1.00-4.8[facility] HospitalLymphocytes/100 WBC Auto (Bld)Ordered By: Dario Forman on 56-15-5509Zjymdscsean/100 WBC (Bld)8.8 %.[facility] Auto (RBC) [Entitic mass]Ordered By: Dario Forman on 79-79-6213ZQC (RBC) [Entitic mass]29.6 pg24.7-34.3FOhioHealth Southeastern Medical CenterHC Auto (RBC) [Mass/Vol]Ordered By: Dario Forman on 26-50-9560PKNR (RBC) [Mass/Vol]32.3 g/dL32.0-35.0[facility] HospitalMCV Auto (RBC) [Entitic vol]Ordered By: Dario Forman on 58-57-2971WOB (RBC) [Entitic vol]91.7 oO01-016MxpvjmfkcTrihealth Good Samaritan HospitalMonocytes Auto (Bld) [#/Vol]Ordered By: Dario Forman on 35-53-6761Hbortwopg (Bld) [#/Vol]1.3 10*3/uL0.0-0.8[facility] HospitalMonocytes/100 WBC Auto (Bld)Ordered By: Dario Forman on 65-56-8641Lqkikphga/100 WBC (Bld)10.2 %.[facility] Neutrophils Auto (Bld) [#/Vol]Ordered By: Dario Forman on 16-17-0085Vclpxzdkltr (Bld) [#/Vol]10.1 10*3/uL1.8-7.7FLouis Stokes Cleveland VA Medical CenterNeutrophils/100 WBC Auto (Bld)Ordered By: Dario Forman on 16-33-6428Azvqojvvzun/100 WBC (Bld) 80.0 %.[facility] HospitalNo Panel InformationOrdered By: Dario Forman on 97-52-0795Wxstrkojm GFR ()> 60 mL/MinTrihealth Good Samaritan HospitalComment on above:GFR estimated reference range: According to KDOQI guidelines, <60 ml/min/1.73m2 is sufficient todiagnose a patient with chronic kidney disease.Pharmacy Creatinine Clearance (Chem68.42[facility]itan HospitalPlatelet mean volume Auto (Bld) [Entitic vol]Ordered By: Draio Forman on 25-02-9494Hasuiwga mean volume (Bld) [Entitic vol]9.0 fL6.3-10.7 [facility] HospitalPlatelets Auto (Bld) [#/Vol]Ordered By: Dario Forman on 78-31-1137Dmgkpozfl (Bld) [#/Vol]258 10*3/cQ143-164DwndsrmxqTrihealth Good Samaritan HospitalProtein [Mass/volume] in Serum or PlasmaOrdered By: Dario Forman on 40-10-3360Ighfcqo [Mass/Vol]5.9 g/dL6.1-7.9[facility] RBC Auto (Bld) [#/Vol]Ordered By: Dario Forman on 93-57-9336SQY (Bld) [#/Vol] 4.05 10*6/uL3.60-5.00TriHealtherum or plasma alanine aminotransferase measurement without P-5'-P (enzymatic activiOrdered By: Dario Forman on 44-60-7355AFX No additional P-5'-P [Catalytic activity/Vol]24 U/L10-60 TriHealtherum or plasma albumin/globulin mass ratio Ordered By: Dario Forman on 89-59-2944Miemscr/Globulin [Mass ratio]1.4 {ratio} TriHealtherum or plasma alkaline phosphatase measurement (enzymatic activity/volume)Ordered By: Dario Forman on 15-48-8144LXQ [Catalytic activity/Vol]77 U/P49-80DqezotbieTriHealtherum or plasma anion gap determinationOrdered By: Dario Forman on 20-31-2980Auoyr gap [Moles/Vol]12.9 mmol/L6.0-15.0TriHealtherum or plasma aspartate aminotransferase measurement (enzymatic activity/volume)Ordered By: Dario Forman on 60-20-4844JAC [Catalytic activity/Vol]90 U/G01-09KqdlxomxdTriHealtherum or plasma calcium measurement (mass/volume)Ordered By: Dario Forman on 55-76-4765Aohwneq [Mass/Vol]9.3 mg/dL8.2-10.2FRegency Hospital Cleveland Easterum or plasma chloride measurement (moles/volume) Ordered By: Dario Forman on 20-38-3968Vxhgxrxi [Moles/Vol]108 mmol/L95-114 TriHealtherum or plasma glucose measurement (mass/volume)Ordered By: Dario Forman on 34-91-1429Tzoapmb [Mass/Vol]112 mg/dL 70-100[facility]itan HospitalComment on above:ADA recommended reference rangeRandom Glucose Reference Range is dependent on time and content of last meal. Glucose of more than 200 mg/dL in a nonstressed, ambulatory subject supports the diagnosisof Diabetes Mellitus.Serum or plasma potassium measurement (moles/volume)Ordered By: Dario Forman on 11-74-3133Zbuuwixkt [Moles/Vol]4.2 mmol/L3.5-5.1FRegency Hospital Cleveland Easterum or plasma sodium measurement (moles/volume)Ordered By: Dario Forman on 20-14-9413Mxsgrw [Moles/Vol]139 mmol/Z258-205HhcmocbrxTriHealtherum or plasma total bilirubin measurement (mass/volume)Ordered By: Dario Forman on 03-14-2022 Bilirubin [Mass/Vol]0.9 mg/dL0.3-1.2FRegency Hospital Cleveland Easterum or plasma total carbon dioxide measurement (moles/volume)Ordered By: Dario Forman on 93-11-6207MV8 [Moles/Vol]22.3 mmol/L22.0-30.0TriHealtherum or plasma urea nitrogen measurement (mass/volume)Ordered By: Dario Forman on 73-67-6974Tecf nitrogen [Mass/Vol]17 mg/dL-[facility]aritan HospitalBNPon 08-80-1555Dbvmlrmudab peptide B (Bld) [Mass/Vol]281.0 pg/mL Normal<=900.0The [facility]icothe HospitalComment on above:Performed By: #### BNP, CMP, CMADM #### [facility] [address] [place] [address] Dr. Abimael Armenta ANA ADMITon 18-00-0568CB [Catalytic activity/Vol]72 U/L Gueltn30-838Wlv [facility] HospitalComment on above:Performed By: #### BNP, CMP, CMADM #### [facility] [address] [place] [address] Dr. Abimael Sinha.MB [Mass/Vol]5.23 ng/mLCritically high<=3.60The [facility] HospitalComment on above:Performed By: #### BNP, CMP, CMADM #### [facility] [address] [place] [address] Dr. Abimael FloydHSTROP729.5 pg/mLCritically high4.0-51.3The [facility] Comment on above:Result Comment: CUT-OFF POINTS HAVE BEEN ESTABLISHED BASED ON THE FOURTH UNIVERSAL DEFINITIONS OF MYOCARDIAL INFARCTION. THE UPPER REFERENCE LIMIT (URL) OF TROPONIN, DEFINED THE 99TH PERCENTILE OF cTnI DISTRIBUTION IN A REFERENCE POPULATION, HAS BEEN CONFIRMED THE DECISION THRESHOLD FOR NH DIAGNOSIS.Performed By: #### BNP, CMP, CMADM #### [facility] [address] [place] [address] Dr. Abimael FloydMYO111 ng/mLCritically high9-82The [facility] HospitalComment on above:Performed By: #### BNP, CMP, CMADM #### [facility] [address] [address] [address] Abimael Taylor AUTO DIFFon 28-69-7972OFTB #0.1 103/ulNormal0.0-0.1The [facility] HospitalComment on above:Performed By: #### CBC #### [facility] [address] [place] [address] Dr. Abimael FloydBasophils/100 WBC (Bld)0.5 %Normal0.2-2.0[facility] Comment on above:Performed By: #### CBC #### [facility] [address] [place] [address] Dr. Abimael Jiang #0.2 103/ulNormal0.0-0.7The [facility] HospitalComment on above: Performed By: #### CBC #### [facility] [address] [place] [address] Dr. Abimael Baltazarosinophils/100 WBC (Bld)1.4 %Normal0.9-7.0[facility] Comment on above:Performed By: #### CBC #### [facility] [address] [place] [address] Dr. Abimael Baltazarrythrocyte distribution width (RBC) [Ratio]13.9 %Jlwxwd79.0-15.0 The [facility]othe HospitalComment on above:Performed By: #### CBC #### [facility] [address] [place] [address] Dr. Abimael FloydHematocrit (Bld) [Volume fraction]39.3 %Qvgrtr49.0-48.0The [facility] HospitalComment on above:Performed By: #### CBC #### [facility] [address] [place] [address] Dr. Abimael FloydHemoglobin (Bld) [Mass/Vol]12.9 g/wTHtzdae85.0-16.0Premier HealthComment on above:Performed By: #### CBC #### [facility] [address] [place] [address] Dr. Abimael Pulido #0.03 10e3/ulNormal0.00-0.03The [facility] HospitalComment on above:Performed By: #### CBC #### [facility] [address] [place] [address] Dr. Abimael Pulido %0.2 %Normal0.0-0.5The [facility] HospitalComment on above: Performed By: #### CBC #### [facility] [address] [address] [address] Abimael Avila #1.1 103/ulCritically low1.2-3.8The [facility] Comment on above:Performed By: #### CBC #### [facility] [address] [place] [address] Dr. Abimael Gastelumhocytes/100 WBC (Bld)8.3 %Critically low20.5-60.0The [facility] HospitalComment on above:Performed By: #### CBC #### [facility] [address] [place] [address] Dr. Abimael Sullivan DIFF REQNONormalThe Chillicothe HospitalComment on above: Performed By: #### CBC #### [facility] [address] [place] [address] Dr. Abimael Olmstead (RBC) [Entitic mass]30.0 fyQhpslv50.7-34.0The [facility] HospitalComment on above:Performed By: #### CBC #### [facility] [address] [place] [address] Dr. Abimael Conklin (RBC) [Mass/Vol]32.8 g/wAOeutgx50.9-35.2The [facility] HospitalComment on above:Performed By: #### CBC #### [facility] [address] [place] [address] Dr. Abimael Vines (RBC) [Entitic vol]91.4 vKNbuybz02.0-99.0The [facility] HospitalComment on above:Performed By: #### CBC #### [facility] [address] [place] [address] Dr. Yilan ChangMONO #0.9 103/ulCritically high0.3-0.8The [facility] Comment on above:Performed By: #### CBC #### [facility] [address] [place] [address] Dr. Abimael Cosbyocytes/100 WBC (Bld)6.8 %Normal1.7-12.0[facility] Comment on above:Performed By: #### CBC #### [facility] [address] [place] [address] Dr. Abimael Escobar #10.5 103/ulCritically high1.4-6.5The [facility] Comment on above:Performed By: #### CBC #### [facility] [address] [place] [address] Dr. Abimael Roblesutrophils/100 WBC (Bld)82.8 %Critically high43.0-75.0The [facility] HospitalComment on above:Performed By: #### CBC #### [facility] [address] [place] [address] Dr. Abimael Del Cidlet mean volume (Bld) [Entitic vol]10.2 fLNormal9.5-13.5The [facility] HospitalComment on above:Performed By: #### CBC #### [facility] [address] [place] [address] Dr. Abimael FloydPLT251 103/joQutsly259-101Yvf [facility] HospitalComment on above: Performed By: #### CBC #### [facility] [address] [place] [address] Dr. Abimael FloydRBC4.30 106/ulNormal4.20-5.40The [facility] HospitalComment on above:Performed By: #### CBC #### [facility] [address] [place] [address] Dr. Abimael VernonBC12.7 103/ulCritically high4.0-11.0The [facility] HospitalComment on above:Performed By: #### CBC #### [facility] [address] [place] [address] Dr. Abimael Burgos 14(COMP METB)on 12-10-2130Njvqbah [Mass/Vol]4.0 g/dLNormal 3.4-5.0The [facility] HospitalComment on above:Performed By: #### BNP, CMP, CMADM #### [facility] [address] [address] [address] Abimael FloydAlbumin/Globulin [Mass ratio]1.1 {ratio}NormalThe [facility]icothe HospitalComment on above:Performed By: #### BNP, CMP, CMADM #### [facility] [address] [address] [address] Abimael LindseyP [Catalytic activity/Vol]115 U/OUppcxo03-620Icq [facility] HospitalComment on above:Performed By: #### BNP, CMP, CMADM #### [facility] [address] [address] [address] Abimael LindseyT [Catalytic activity/Vol]15 U/FOaftsj08-54Lla [facility] HospitalComment on above:Performed By: #### BNP, CMP, CMADM #### [facility] [address] [address] [address] Abimael Garg gap [Moles/Vol]10.4 mmol/LNormalThe [facility] Comment on above:Performed By: #### BNP, CMP, CMADM #### [facility] [address] [address] [address] Abimael FloydAST [Catalytic activity/Vol]14 U/LCritically xqd65-89Dqe [facility] HospitalComment on above:Performed By: #### BNP, CMP, CMADM #### [facility] [address] [address] [address] Abimael FloydBilirubin [Mass/Vol]1.0 mg/dLNormal0.2-1.0The [facility] Comment on above:Performed By: #### BNP, CMP, CMADM #### [facility] [address] [address] [address] Abimael FloydCalcium [Mass/Vol]9.3 mg/dLNormal8.5-10.1The [facility] Comment on above:Performed By: #### BNP, CMP, CMADM #### [facility] [address] [address] [address] Abimael FloydChloride [Moles/Vol]103 mmol/FQvbcra02-407Pzz [facility] Comment on above:Performed By: #### BNP, CMP, CMADM #### [facility] [address] [place] [address] Dr. Abimael FloydCO2 [Moles/Vol]26.6 mmol/LPnnquo93.0-32.0The [facility] Comment on above:Performed By: #### BNP, CMP, CMADM #### [facility] [address] [place] [address] Dr. Abimael FloydCreatinine [Mass/Vol]1.03 mg/dLCritically high0.55-1.02[facility] HealthComment on above:Performed By: #### BNP, CMP, CMADM #### [facility] [address] [place] [address] Dr. Varghese ChangEGFR-AF TUNISIAN>60Normal>=60The [facility] HospitalComment on above:Performed By: #### BNP, CMP, CMADM #### [facility] [address] [place] [address] Dr. Abimael BaltazarGFR-NON AF RZPCVKQW09 mL/min/1.11m8Tdfpqwlkca low>=60The [facility] HospitalComment on above:Performed By: #### BNP, CMP, CMADM #### [facility] [address] [place] [address] Dr. Abimael FloydGlobulin (S) [Mass/Vol]3.5 g/dLNormalThe [facility] HospitalComment on above:Performed By: #### BNP, CMP, CMADM #### [facility] [address] [place] [address] Dr. Abimael FloydGlucose [Mass/Vol]144 mg/dLCritically tavy94-108Pqi [facility] HospitalComment on above:Performed By: #### BNP, CMP, CMADM #### [facility] [address] [place] [address] Dr. Abimael FloydPotassium [Moles/Vol]4.0 mmol/LNormal3.5-5.1The [facility] Comment on above:Performed By: #### BNP, CMP, CMADM #### [facility] [address] [address] [address] Abimael FloydProtein [Mass/Vol]7.5 g/dLNormal6.4-8.2[facility] Comment on above:Performed By: #### BNP, CMP, CMADM #### [facility] [address] [address] [address] Abimael FloydSodium [Moles/Vol]136 mmol/NNxjzxo736-062Ngx [facility] Comment on above:Performed By: #### BNP, CMP, CMADM #### [facility] [address] [address] [address] Abimael FloydUrea nitrogen [Mass/Vol]26.0 mg/dLCritically high7.0-18.0[facility] HealthComment on above:Performed By: #### BNP, CMP, CMADM #### [facility] [address] [address] [address] Abimael Alexander nitrogen/Creatinine [Mass ratio]25.2 mg/mgNoGeorgetown Behavioral HospitalComment on above:Performed By: #### BNP, CMP, CMADM #### [facility] [address] [address] [address] Abimael FloydXR CHEST 1 Von 82-59-8480YQ CHEST 1 VEXAM: Chest x-ray HISTORY: CHEST [...] Electronically authenticated by: CHLOÉ DARBY Date: 2022-03-13 12:14[facility] Left*on 82-01-0534LG Shoulder Complete Left*BILATERAL SHOULDERS FINDINGS: Mildly bulbous [...] and signed by Raphael Jones on 12/11/2021 1357NoWVUMedicine Barnesville HospitalXR Shoulder Complete Right*on 20-22-4214ZK Shoulder Complete Right*Please see the left shoulder x-ray report from this same date Report reported and signed by Raphael Jones on 12/11/2021 1356NoWVUMedicine Barnesville HospitalComprehensive Metabolic Panelon 21-36-5072Uqqdejw [Mass/Vol]4.7 g/dLNormal3.6-5.1[facility]'S HospitalComment on above: Performed By: #### CMP, LIPD #### [facility] [address] [place], [place] [id number]/Globulin [Mass ratio]2.4 {ratio}Normal1.0-2.5NoKindred HealthcareComment on above:Performed By: #### CMP, LIPD #### [facility] [address] [place], [place] [id number] [Catalytic activity/Vol]111 U/ENyhxbd24-063KyhgwexnKindred HealthcareComment on above:Performed By: #### CMP, LIPD #### [facility] [address] [place], [place] [id number] [Catalytic activity/Vol]12 U/LNormal6-33NoGerman Hospital SpecialistComment on above:Result Comment: 03/20/2021 Female reference range changed.Performed By: #### CMP, LIPD #### [facility] [address] [place], [place] [id number] gap [Moles/Vol]16 mmol/EQotwit52-35Waxnzjqh [place] [facility] SpecialistComment on above:Result Comment: Effective 04/25/2019 reference range changed.Performed By: #### CMP, LIPD #### [facility] [address] [place], [place] [id number] [Catalytic activity/Vol]12 U/LNormal9-34NortKindred Healthcare SpecialistComment on above:Performed By: #### CMP, LIPD #### [facility] [address] [place], [place] [id number] [Mass/Vol]0.66 mg/dLNormal0.30-1.20Northonorhealth j[facility] centern [place] Medical SpecialistComment on above:Performed By: #### CMP, LIPD #### [facility] [address] [place], [place] [id number]/CREA31 RatioHigh6-22NortKindred HealthcareSock Folder Comment on above:Performed By: #### CMP, LIPD #### [facility] [address] [place], [place] [id number] [Mass/Vol]9.9 mg/dLNormal8.6-10.2[facility] [place] SpecialistComment on above:Performed By: #### CMP, LIPD #### [facility] [address] [place], [place] [id number] [Moles/Vol]106 mmol/PHntkkr87-656Kwjpvyze [place] [facility] SpecialistComment on above:Performed By: #### CMP, LIPD #### [facility] [address] [place], [place] [id number] [Moles/Vol]23 mmol/TVcasrx06-93Wprihnha [place] [facility] SpecialistComment on above:Performed By: #### CMP, LIPD #### [facility] [address] [place], [place] [id number] [Mass/Vol]0.8 mg/dLNormal0.6-1.4[facility]onorhealth j[facility] centern [place] Medical SpecialistComment on above:Performed By: #### CMP, LIPD #### [facility] [address] [place], [place] [id number] mL/min/1.80q3Ungzrx>60Northonorhealth j[facility] centern [place] Medical SpecialistComment on above:Performed By: #### CMP, LIPD #### [facility] [address] [place], [place] [id number] mL/min/1.92v1Pnhget>60NortKindred Healthcare SpecialistComment on above:Performed By: #### CMP, LIPD #### [facility] [address] [place], [place] [id number] (S) [Mass/Vol]2.0 g/dLNormal1.9-3.7NortKindred Healthcare SpecialistComment on above:Performed By: #### CMP, LIPD #### [facility] [address] [place], [place] [id number] [Mass/Vol]102 mg/nAGkxn96-64Yoizvzjk [place] [facility] SpecialistComment on above:Result Comment: For FASTING Glucose --- ADA reference ranges: Normal 65-99 mg/dl Prediabetes 100-125 Diabetes >/= 126Performed By: #### CMP, LIPD #### [facility] [address] [place], [place] [id number] [Moles/Vol]4.4 mmol/LNormal3.5-5.5NortKindred Healthcare SpecialistComment on above:Performed By: #### CMP, LIPD #### [facility] [address] [place], [place] [id number] [Mass/Vol]6.7 g/dLNormal6.1-8.1[facility] [place] SpecialistComment on above:Performed By: #### CMP, LIPD #### [facility] [address] [place], [place] [id number] [Moles/Vol]141 mmol/RYhzrjr211-902Euvhfglr [place] [facility] SpecialistComment on above:Performed By: #### CMP, LIPD #### [facility] [address] [place], [place] [id number] nitrogen [Mass/Vol]25 mg/dLNormal7-25NortKindred Healthcare SpecialistComment on above:Performed By: #### CMP, LIPD #### [facility] [address] [place], [place] [id number] Panelon 51-47-7708Eotjuyxjztd [Mass/Vol]268 mg/dLHigh 125-200NoGerman Hospital SpecialistComment on above:Result Comment: Low risk < 200mg/dL Borderline risk 201-239 mg/dl High risk > or equal to 240Performed By: #### CMP, LIPD #### [facility] [address] [place], [place] [id number] in HDL [Mass/Vol]62 mg/dLNormal>40NoGerman Hospital SpecialistComment on above:Result Comment: High Cardiovascular Risk HDL <40 mg/dL Low Cardiovascular Risk HDL > or equal to 60 mg/dlPerformed By: #### CMP, LIPD #### [facility] [address] [facility] [address] [place], [place] [id number] in LDL [Mass/Vol]184 mg/dLNormalShelby [facility] SpecialistComment on above:Result Comment: LDL ATP III CLASSIFICATION LDL less than 100 mg/dl Optimal LDL 100-129 mg/dl Near or above optimal LDL 130-159 Borderline high LDL 160-189 High LDL greater than 189 mg/dl Very HighPerformed By: #### CMP, LIPD #### [facility] [address] [facility] [place], [place] [id number] in VLDL [Mass/Vol]22 mg/dLNormalNoGerman Hospital SpecialistComment on above:Performed By: #### CMP, LIPD #### [facility] [address] [facility] [place] [id number].total/Cholesterol in HDL [Mass ratio]4 {ratio} NormalNoGerman Hospital SpecialistComment on above:Performed By: #### CMP, LIPD #### [facility] [address] [place], [place] [id number] [Mass/Vol]108 mg/gKQbrgoi22-615Gpswgoud [facility] SpecialistComselect specialty hospital on above:Result Comment: TRIG ATPIII CLASSIFICATIONS TRIG less than 150 mg/dl Normal TRIG 150-199 mg/dl Borderline High TRIG 200-500 mg/dl High TRIG greather than 500 mg/dl Very HighPerformed By: #### CMP, LIPD #### [facility] [address] [place], [place] [id number] 01-14-6355KXYJQkwyhf Visit (ORTHMN) LEIA EWING ([id number]) 1950 F Date Time Provider Department 02/04/21 [...] previously because of the arthritic changes near gsqw-am-fbvm of the lateral compartment she will have [...] osteoarthritis of left knee (primary encounter diagnosis) (S83.674D) Sprain of medial collateral ligament of left [...] Has a valgus aligned knee with near nrgu-sl-chiz lateral compartment Follow up: As needed consider cortisone injection Films prior to visit: No additional imaging warranted. SIGNATURE: Yonas Luciano PA-C PATIENT NAME: Leia Ewing DATE: February 04, 2021 TIME: 2:40 PM Referri (more content not included)...NormalAd[facility] [id number] Visit (ORTHMN) LEIA EWING ([id number]) 1950 F Date Time Provider Department 01/14/21 [...] mild Effusion: effusion present Assessment/Plan ASSESSMENT Diagnosis (A58.508H) Sprain of medial collateral ligament of left knee, subsequent encounter (primary encounter diagnosis) No orders found for this visit on 01/14/21. PLAN CLINICAL IMPRESSION / ASSESSMENT: (U88.493U) Sprain of medial collateral ligament of left [...] Anaphylaxis Date Reviewed: 01/14/2021 Reviewed by: Caitlin Grjaeda Ma - Fully Assessed Reason for Visit: [...] at bedtime. - asp (more content not included)...NormalTri[facility] [id number] TextNormalCKettering Health Main Campus 34-31-2383UHLI Office Visit (ORTHMN) LEIA EWING ([id number]) 1950 F Date Time Provider Department 11/02/20 [...] and sleeping. 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 Otolaryngology Rep: PSCB Transcribe Date/Time: Nov 02 2020 1:37P Dictated by : ERVIN AIKEN MD This examination was interpreted and the report reviewed and electronically signed by: ERVIN AIKEN MD on Nov 02 2020 1:38PM EST [id number]. Vincent Hospital Vital Signs Date TimeVital SignValuePerforming HrlvnfofyRckdwwfz23-98-3849 09:59-0400 Diastolic blood dsatozzs75 mm[Hg]Xavier Robbins MD Work Phone: [facility]10-03-2025 09:59-0400 Systolic blood dabrvbeo066 mm[Hg]Xavier Robbins MD Work Phone: [facility]09-23-2025 10:46-0400 Body mevmyr002.3 Mario Robbins MD Work Phone: [facility] CenterAgmrlweyur62-41-7060 10:46-0400Body mass index (BMI) [Ratio]37.8 kg/f4BgxiylXavier Robbins MD Work Phone: [phone] CenterHczfqviqat53-05-1720 10:46-0400Body xukgha351.12 kgXavier Robbins MD Work Phone: [phone] [place], [place] [address]Udxccrjewx02-99-5150 10:46-0400Heart llnx202 /min Xavier Robbins MD Work Phone: [phone] [place], [place] [address]Napndcmazl10-57-6536 10:46-6068XaP7% (BldA) [Mass fraction]96 %Xavier Robbins MD Work Phone: [phone] [place], [place] [address]Hsaumkcabt87-50-1368 14:12-0400Body lckiwz135.3 cmEgoran Robbins MD Work Phone: [phone] [place], [place] [address]Wyafjyorif22-89-3036 14:12-0400Body mass index (BMI) [Ratio]37.8 kg/r5UwmvcfXavier Robbins MD Work Phone: [phone] [place], [place] [address]Iaehycvokc95-19-2119 14:12-0400Body saahrp315.12 kgXavier Robbins MD Work Phone: [phone] [place], [place] [address]Txgxaqjwsu48-69-6972 09:25-0400Body bhkaqe200.3 cmEgoran Robbins MD Work Phone: [phone] [place], [place] [address]Wefikgqjky15-13-2397 09:25-0400Body mass index (BMI) [Ratio]37.8 kg/y2HrtpgoXavier Robbins MD Work Phone: [phone] [place], [place] [address]Iclpwsdkrh68-21-8087 09:25-0400Body hntgap394.12 kgXavier Robbins MD Work Phone: [phone])[address]08-06-2025 09:25-0400Diastolic blood kretfiha36 mm[Hg]Xavier Robbins MD Work Phone: [phone] [place], [place] [address]Yrkuvfjjmw18-70-2206 09:25-0400Heart rate87 /min Xavier Robbins MD Work Phone: [phone] CenterXyuiowsjuy26-93-6538 09:25-7622UgB0% (BldA) [Mass fraction]98 %Xavier Robbins MD Work Phone: [facility] CenterEpominrkyg74-58-1468 09:25-0400Systolic blood dpviuhlz349 mm[Hg]Xavier Robbins MD Work Phone: [facility] CenterPhkrahsquh09-84-3361 11:09-0400Body bywddn420.3 cmMattabdirizak Hull PA Work Phone: [facility] CenterLkwjlhwzvh43-44-4194 11:09-0400Body mass index (BMI) [Ratio]37.8 kg/c2Nyyfdnq Meyer PA Work Phone: [facility] CenterSmodbzmqcb22-02-4498 11:09-0400Body tnmazm735.12 kgMattabdirizak Hull PA Work Phone: [facility] CenterLkjpacvvmg19-54-5856 16:14-0400Body .3 cmEgoran Robbins MD Work Phone: [phone] [place], [place] [address]Wsfvsbbzmz71-62-8012 16:14-0400Body mass index (BMI) [Ratio]35.15 kg/p1YdspcdXavier Robbins MD Work Phone: [facility] CenterDbkecdaosy33-18-5072 16:14-0400Body .96 kgXavier Robbins MD Work Phone: [phone] CenterGaberddcaj07-87-2734 13:48-0400Body .3 Mario Robbins MD Work Phone: [phone] [place], [place] [address]Jgetywatvp84-55-7311 13:48-0400Body mass index (BMI) [Ratio]35.15 kg/h2ZemzbbXavier Robbins MD Work Phone: [phone] [place], [place] [address]Dpqleqliib00-59-6507 13:48-0400Body lgootl700.96 kgXavier Robbins MD Work Phone: [phone])[address]04-01-2025 14:04-0400Body itpzui695.3 Mario Robbins MD Work Phone: [phone])[facility] CenterLrhpgtgbtm08-01-5902 14:04-0400Body mass index (BMI) [Ratio]35.15 kg/d1LnsuvgXavier Robbins MD Work Phone: [facility] CenterQpmyiirnso57-61-6262 14:04-0400Body onbzog665.96 kgXavier Robbins MD Work Phone: 1(637)[address] [place], [place] 2122302-11-2025 11:13-0500Body icseyp933.3 cmEgoran Robbins MD Work Phone: [phone])[address] [place], [place] 2122302-11-2025 11:13-0500Body mass index (BMI) [Ratio]35.15 kg/u5BrkgyyXavier Robbins MD Work Phone: 1(903)[address] [place], [place] 2122302-11-2025 11:13-0500Body crelqz145.96 kgXavier Robbins MD Work Phone: [phone])[address] [place], [place] 2122[address]-11-2025 11:13-0500Diastolic blood svfrzuav20 mm[Hg]Xavier Robbins MD Work Phone: 1(775)[address] [place], [place] 2122302-11-2025 11:13-0500Heart pkag725 /min Xavier Robbins MD Work Phone: 1(405)[address] [place], [place] 2122302-11-2025 11:13-8337LpR6% (BldA) [Mass fraction]98 %Xavier Robbins MD Work Phone: 1(376)[facility] [place], [place] [address]Vycvvdoupo72-86-7790 11:13-0500Systolic blood eqknurjz939 mm[Hg]Xavier Robbins MD Work Phone: 1(288)[facility] CenterEqwmrjrewy81-31-6433 10:51-0500Body .3 cmGama Canales DO Work Phone: [facility]12-13-2024 10:51-0500 Body mass index (BMI) [Ratio]36.06 kg/q0HeuxylfGama Canales DO Work Phone: [facility]12-13-2024 10:51-0500 Body tudnhw246.77 kgGama Canales DO Work Phone: [facility]12-13-2024 10:51-0500 Diastolic blood cwmutdce13 mm[Hg]Gama Canales DO Work Phone: [facility]12-13-2024 10:51-0500 Heart rate80 /minGama Canales DO Work Phone: [facility]12-13-2024 10:51-0500 Systolic blood bytzkrym626 mm[Hg]Gama Canales DO Work Phone: [facility]11-12-2024 15:02-0500 Body .3 cmEgoran Robbins MD Work Phone: [phone])[address]11-12-2024 15:02-0500Body mass index (BMI) [Ratio]35.15 kg/u5ZxxgrmXavier Robbins MD Work Phone: 1(994)[address]11-12-2024 15:02-0500Body .96 kgXavier Robbins MD Work Phone: 1(852)[address]11-12-2024 15:02-0500Heart rate96 /min Xavier Robbins MD Work Phone: 1(803)[place] [address]-12-2024 15:02-4326HqC3% (BldA) [Mass fraction]98 %Xavier Robbins MD Work Phone: 1(044)[address] [place], [place] 2122308-21-2024 11:29-0400Body lohivr871.3 Mario Robbins MD Work Phone: 1(168)[address]08-21-2024 11:29-0400Body mass index (BMI) [Ratio]35.15 kg/m1LlrtjlXavier Robbins MD Work Phone: 1(529)[address]08-21-2024 11:29-0400Body .96 kgXavier Robbins MD Work Phone: 1(805)[address] [place] [address]-21-2024 11:29-0400Diastolic blood sctgsief44 mm[Hg]Xavier Robbins MD Work Phone: 1(628)[address] [place], [place] [address]Dcmdvfxxyq59-84-8233 11:29-0400Heart rate85 /min Xavier Robbins MD Work Phone: 1(266)[address] [place], [place] [address] 11:29-4317ZkY8% (BldA) [Mass fraction]97 %Xavier Robbins MD Work Phone: [facility] CenterCxehxxvnfc09-97-8379 11:29-0400Systolic blood oxttxhvd342 mm[Hg]Xavier Robbins MD Work Phone: [facility] CenterOdwggatjfr10-21-9752 15:26-0400Body lhovnq472.3 cmGus Malik [employer] Work Phone: [phone] [place], [place] [address]2406-18-2024 15:26-0400 Body mass index (BMI) [Ratio]34.85 kg/j0BwtnqGus Malik [employer] Work Phone: [phone])[address]06-18-2024 15:26-0400 Body zazvtz754.05 kgGus Malik [employer] Work Phone: 1(978)[address]06-18-2024 15:26-0400 Diastolic blood mm[Hg]Gus Malik [employer] Work Phone: [phone])[address] [place], [place] 472[address]06-18-2024 15:26-0400 Heart rate60 /minDgabriella Malik [employer] Work Phone: [phone] [place], [place] 472[address]06-18-2024 15:26-0400 Systolic blood iaxnfibw574 mm[Hg]Gus Malik [employer] Work Phone: [phone] [place], [place] 4722405-17-2024 10:32-0400 Body lukghw074.[address] [place], [place] [address]493205-17-2024 10:32-0400 Body mass index (BMI) [Ratio]34.85 kg/m2Ely [address] [place] [address] 09-04-2023 10:32-0400Body dhdosi329.[address] [place] [address] 09-04-2023 10:32-0400Diastolic blood mm[Hg]Keli [address] [place], [place] 0493[address]-17-2024 10:32-0400Systolic blood wzsmuncd925 mm[Hg][address]05-01-2024 14:30-0400Body .3 cmGus Malik [employer] Work Phone: [phone])[address]05-01-2024 14:30-0400 Body mass index (BMI) [Ratio]34.85 kg/v1IgpwbGus Mailk [employer] Work Phone: [phone])[address]05-01-2024 14:30-0400 Body ezzzqv045.05 kgGus Malik [employer] Work Phone: 1(773)[address]05-01-2024 14:30-0400 Diastolic blood dcopwabz85 mm[Hg]Gus Malik [employer] Work Phone: 1(681)[address]05-01-2024 14:30-0400 Heart rate79 /minDgabriella Malik [employer] Work Phone: [phone])[address]05-01-2024 14:30-0400 Systolic blood qypmsehy996 mm[Hg]Gus Malik [employer] Work Phone: 1(234)[address]11-01-2023 11:45-0400 Body rmipxr009.3 cmElizabethrangel Parker DO Work Phone: [phone])[address]11-01-2023 11:45-0400 Body mass index (BMI) [Ratio]35.88 kg/p9JgaikssGama Canales DO Work Phone: 1(448)[address]11-01-2023 11:45-0400 Body otlwow037.22 kgGama Canales DO Work Phone: 1(693)[address]11-01-2023 11:45-0400 Diastolic blood axeomedo17 mm[Hg]Gama Canales DO Work Phone: 1(056)[address]11-01-2023 11:45-0400 Heart rate60 /minGama Canales DO Work Phone: 1(890)[address]11-01-2023 11:45-0400 Systolic blood gaekeksg614 mm[Hg]Gama Canales DO Work Phone: [facility]09-09-2023 12:25-0400 Body yjprqc749.26 Elvia Hernandez Other [employer] Other 09-09-2023 12:25-0400Body mass index (BMI) [Ratio] 35.23 kg/c7ZjdshJanette Hernandez Other [employer] Other 09-09-2023 12:25-0400Body rwzkieqsuse84.8 [degF]Janette Hernandez Other [employer] Other 09-09-2023 12:25-0400Body sxfoav583.23 kgJanette Hernandez Other [employer] Other 09-09-2023 12:25-0400Diastolic blood btarkzkq15 mm[Hg] Janette Hernandez Other [employer] Other 09-09-2023 12:25-0400Respiratory rate18 /minJanette Hernandez Other [employer] Other 09-09-2023 12:25-6708PrE0% (BldA) [Mass fraction]96 % Janette Hernandez Other [employer] Other 09-09-2023 12:25-0400Systolic blood mm[Hg] Janette Hernandez Other [employer] Other 05-03-2023 11:17-0400Body cetfsv568.26 Mario Aguilaryer Work Phone: 1(921) [phone]-GcqpxWaseca Hospital and ClinicButte [place] 250 DO Work Phone: 1(937) 496-300105-03-2023 11:17-0400Body mass index (BMI) [Ratio] 36.18 kg/f2PtmpzeXavier Aguilarfelton Work Phone: 1(290) [phone]-Wjeyz [facility] 250 DO Work Phone: 1(530) 908-355605-03-2023 11:17-0400Body surface area Derived from formula2.25 i5YrciasXavier Robbins Work Phone: 1(728) [phone]-Ofoaw [facility] 250 DO Work Phone: 1(276) 296-963305-03-2023 11:17-0400Body ydbdcy974.13 kgXavier Aguilarfelton Work Phone: 1(997) [phone]-Kphma [facility] 250 DO Work Phone: 1(205) 427-828005-03-2023 11:17-0400Diastolic blood utfdxzow11 mm[Hg] Xavier Aguilarfelton Work Phone: 1(427) [phone]-Mktqu [facility] 250 DO Work Phone: 1(929) 368-562305-03-2023 11:17-0400Heart rate68 /minEgoran Spaulding Jeffyer Work Phone: 1(301) [phone]-Yiuya [facility] 250 DO Work Phone: 1(246) 758-238005-03-2023 11:17-0400Systolic blood nwmtgsje137 mm[Hg] Xavier Robbins Work Phone: 1(798) [phone]-Lzhol [facility] 250 DO Work Phone: 1(951) 387-361412-08-2022 08:53-0500Body fdqmul175.26 cmEdalejandro Aguilarfelton Work Phone: 1(150) [phone]-Oifvd [facility] 250 DO Work Phone: 1(383) 982-756812-08-2022 08:53-0500Body mass index (BMI) [Ratio] 36.77 kg/d4TalhvlXavier Robbins Work Phone: 1(215) [phone]-Uozfq [facility] 250 DO Work Phone: 1(898) 565-701012-08-2022 08:53-0500Body surface area Derived from formula2.27 k3BioinpXavier Robbins Work Phone: 1(543) [phone]-Unngz [facility] 250 DO Work Phone: 1(649) 858-405912-08-2022 08:53-0500Body .95 kgXavier Robbins Work Phone: 1(446) [phone]-Upgro [facility] 250 DO Work Phone: 1(637) 332-565412-08-2022 08:53-0500Diastolic blood gpuunlcy40 mm[Hg] Xavier Robbins Work Phone: 1(274) [phone]-Zlexu [facility] 250 DO Work Phone: 1(415) 709-571212-08-2022 08:53-0500Heart rate78 /minEgoran Robbins Work Phone: 1(857) [phone]-Evwau [facility] 250 DO Work Phone: 1(538) 531-101812-08-2022 08:53-0500Systolic blood wxfmuuup705 mm[Hg] Xavier Robbins Work Phone: 1(770) [phone]-Bigia [facility] 250 DO Work Phone: 1(928) 922-246611-25-2022 14:00-0500Diastolic blood iowpgmjv57 mm[Hg] MD Dario Forman Work Phone: [facility]11-25-2022 14:00-0500 Heart rate66 /minMD Dario Forman Work Phone: [facility]11-25-2022 14:00-0500 Respiratory rate16 /min Dario Forman Work Phone: [facility]11-25-2022 14:00-0500 SaO2% (BldA) [Mass fraction]96 %MD Dario Forman Work Phone: [facility]11-25-2022 14:00-0500 Systolic blood zywtjjki616 mm[Hg]MD Dario Forman Work Phone: [facility]11-25-2022 11:59-0500 Body guoxdixsajy75.2 [degF]MD Dario Forman Work Phone: [facility]11-25-2022 11:57-0500 Body oqgnmt527.26 cmMD Dario Forman Work Phone: [facility]11-25-2022 06:00-0500 Body .9 kgMD Dario Forman Work Phone: [facility]11-25-2022 00:00-0500 63 1Egoran Robbins Work Phone: 1(277) [phone]-Nfrzw [facility] 250 DO Work Phone: Comment on above:RMPILDPU9659-60-5748 14:45-0500 Inhaled oxygen flow rate2 L/min Dario Forman Work Phone: [facility] Encounters Encounter DateEncounter [facility] ProviderFacilityStart: 01-20-2025 End: 22-90-0066tksnypzehrPjqxct J Hemeyer MD Work Phone: [facility] Work Phone: Start: 01-20-2025 End: 99-54-9882Hrhwzto encounter procedureRobert Jose Way MD-[facility] Work Phone: Start: 01-10-2025 End: 74-52-1619Nmmiisquyen Robbins MD Work Phone: [facility] Family MedicineStart: 01-10-2025 End: 62-58-3599Wcyiraquyen Robbins MD Work Phone: [facility] Family MedicineStart: 01-10-2025 End: 11-86-6853hbahtdftygOUWDCJ J HEMEYERNot AvailableStart: 01-10-2025 End: 34-14-4546Bytwog outpatient visit 25 minutesXavier Robbins MD Work Phone: [facility] Family MedicineComment on above:Simple chronic bronchitis (HCC); Mild intermittent asthma without complication (HCC); Urge incontinence of urine; Recurrent major depressive disorder, in partial remission ; Difficulty walking; Morbid obesity due to excess calories (CMS-HCC); Acute cystitis without hematuria; Mixed hyperlipidemiaStart: 12-22-2024 End: 80-34-8381Mxrkkan encounter procedureRobcara Way MD-CT [facility] [place] Work Phone: Start: 12-22-2024 End: 67-26-3505xlczxaatscBxoyrwGerardo Robbins MD Work Phone: [facility] Work Phone: Start: 11-28-2024 End: 10-91-8572Xqhkhtsudhakar Robbins MD Work Phone: [facility] [place] MedicineStart: 11-28-2024 End: 18-50-3578Cbkvzbsudhakar Robbins MD Work Phone: [facility] [place] Dimitry [facility] MedicineStart: 11-28-2024 End: 53-49-4725Fymieq follow up visit related to original Monalisa Robbins MD Work Phone: [facility] [place] [address] [facility] MedicineComment on above:Visit for suture removalStart: 11-28-2024 End: 26-69-4079levugyrlfpZGLSSMGerardo Chapa AvailableStart: 11-24-2024 End: 83-52-1731krqqaxikawBeyyxoGerardo Robbins MD Work Phone: [facility] Work Phone: Start: 11-24-2024 End: 73-67-7437Mnrjaly encounter procedureSkip Way MD-[facility] Work Phone: Start: 11-24-2024 End: 86-05-5231Rhmhvaw encounter procedureSkip Way MD-[facility] OrthoStart: 11-24-2024 End: 17-79-9708ufrgdhkoyfOgurojGerardo Robbins MD Work Phone: [facility] Work Phone: Start: 11-23-2024 End: 59-28-2052Pafyzc flowsChase Robbins MD Work Phone: [facility] Family MedicineStart: 11-23-2024 End: 61-83-3480Kqaueb flowsChase Robbins MD Work Phone: [facility] [address] [facility] MedicineStart: 11-23-2024 End: 27-15-1113Fnjtzj outpatient visit 25 minutesEdalejandro Robbins MD Work Phone: [facility] MedicineComment on above:Benign essential hypertension ; Hypertensive nephropathy ; Stage 3a chronic kidney disease (CMS-HCC); Microalbuminuria; Mixed hyperlipidemia ; Restless leg syndrome; Difficulty walking; Uses roller walker; Chronic pain syndromeStart: 11-23-2024 End: 11-79-3223ioqmsghddxGCHNVO J HEMEYERNot AvailableStart: 11-15-2024 End: 91-76-0703iutirdagvqZERYNY J HEMEYERNot AvailableStart: 11-15-2024 End: 64-41-0629Aprbjtv encounter procedureXavier Robbins MD Work Phone: [facility] [address] [facility] CenterComment [facility]: Neoplasm of uncertain behavior (Primary Dx); Enlarged pigmented skin lesion; Skin inflammationStart: 10-31-2024 End: 72-11-2706Inwdecr encounter Charleen Robbins MD Work Phone: [facility] 100Comment on above:Cellulitis of left upper extremity (Primary Dx)Start: 10-31-2024 End: 59-31-1471qvsjvpsexzDQGQZM J HEMEYERNot AvailableStart: 10-28-2024 End: 16-74-2488Ialhgn flowsLillian RENEE Work Phone: [facility] ORTHOPAEDICSStart: 10-28-2024 End: 16-44-3380Yewgbh flowsheetAntonia RENEE Work Phone: [facility] FB ORTHOPAEDICSStart: 10-28-2024 End: 07-90-3312Ivntoh outpatient visit 15 minutesMaevelio RENEE Work Phone: [facility] FB ORTHOPAEDICSComment on above:Acute right hip pain (Primary Dx); Right hip pain; History of total hip replacement, rightStart: 10-28-2024 End: 22-41-2953psszsmxbkyZHQZQTD J MEYERNot AvailableStart: 10-14-2024 End: 20-41-5547usugjbxkxtJUUFZE J HEMEYERNot AvailableStart: 10-13-2024 End: 55-73-6447Leizlv outpatient visit 15 minutesXavier Robbins MD Work Phone: [facility] 100Comment on above:Contusion of right hip, initial encounter (Primary Dx); History of right hip replacement; Chronic pain syndrome; Status post left hip replacement; Morbid obesity due to excess calories ([facility])Start: 10-13-2024 End: 89-82-4197lvibzebvhyUZLFVY J HEMEYERNot AvailableStart: 10-13-2024 End: 32-87-4496Ouzncm flowsChase Robbins MD Work Phone: [facility] 100Start: 10-13-2024 End: 51-60-2446Hklkrb flowsChase Robbins MD Work Phone: [facility] 100Start: 08-23-2024 End: 90-23-4069Gxypsxquyen Robbins MD Work Phone: [facility] 100Start: 08-23-2024 End: 55-95-4946Ffrpgk flowsChase Robbins MD Work Phone: [facility] 100Start: 08-23-2024 End: 66-54-1653wfndhszmwgNGFXTI J HEMEYERNot AvailableStart: 08-23-2024 End: 75-02-4679Kxlhjok encounter procedureXavier Robbins MD Work Phone: [facility] 100Comment on above:Chronic pain syndrome; Arthritis of left knee; Arthritis of right knee; Uses roller walker; Difficulty walking; Morbid obesity due to excess calories (CMS/HCC); BMI 35.0-35.9,adult; Benign essential hypertension (CMS/HCC)Start: 07-19-2024 End: 86-87-0541Sokwna Angelica Robbins MD Work Phone: [facility] 100Start: 07-19-2024 End: 46-65-5501Psmaqd Angelica Robbins MD Work Phone: [facility] 100Start: 07-19-2024 End: 79-65-0109Pjxpkm outpatient visit 15 minutesXavier Robbins MD Work Phone: [facility] 100Comment on above:Chronic pain syndrome (Primary Dx); Arthritis of left knee; Arthritis of right kneeStart: 07-19-2024 End: 72-51-1919qkkkaiepuiPTREET J HEMEYERNot AvailableStart: 07-12-2024 End: 07-61-7833cftnwqhagmIIXTBE J HEMEYERNot AvailableStart: 05-31-2024 End: 87-14-2696Aqsadw outpatient visit 25 minutesXavier Robbins MD Work Phone: [facility] 100Comment on above:Benign essential hypertension (CMS/HCC); Hypertensive nephropathy (CMS/HCC); Stage 3a chronic kidney disease (HCC) (CMS/HCC); Microalbuminuria; Mixed hyperlipidemia (CMS/HCC); Paroxysmal atrial fibrillation (CMS/HCC); 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; Restless leg syndrome; Chronic pain syndrome; Urge incontinence of urine; Simple chronic bronchitis (CMS/HCC)Start: 05-31-2024 End: [id number] J HEMEYERNot AvailableStart: 04-29-2024 End: 27-77-0311SgarvhTdaryv J Hemeyer MD Work Phone: [facility] 100Comment on above:Mixed hyperlipidemia (CMS/HCC)Start: 04-28-2024 End: 66-42-4036XnzsspGsskzg J Hemeyer MD Work Phone: [facility] 100Comment on above:Urge incontinenceStart: 04-01-2024 End: 32-75-0884[place] outpatient visit [facility] Work Phone: [facility] HospitalComment on above:ASHD (arteriosclerotic heart disease); History of myocardial infarction; History of percutaneous coronary intervention; Paroxysmal atrial fibrillation (Multi); Status post insertion of drug eluting coronary artery stent; Mixed hyperlipidemia; Primary hypertension; SOB (shortness of breath) on exertion; Cardiomyopathy, ischemic; snf current use of anticoagulant therapy; Class 2 obesity due to excess calories with body mass index (BMI) of 36.0 to 36.9 in adult, unspecified whether serious comorbidity present; Never smoked tobaccoStart: 04-01-2024 End: 68-95-5244ucrwqzifvdNUBEEQYHenry [facility] AmbulatoryStart: 03-01-2024 End: 24-10-9080Pgggvuw encounter Charleen Robbins MD Work Phone: noms [...] without complication (CMS/HCC); Coronary artery disease involving mesa grande coronary artery of mesa grande heart without angina pectoris (CMS/HCC); History of heart attack (CMS/HCC); Benign essential hypertension (CMS/HCC); Hypertensive nephropathy (CMS/HCC); Stage 3a chronic kidney disease (HCC) (CMS/HCC); Mixed hyperlipidemia (CMS/HCC); Recurrent major depressive disorder, in partial remission (HCC) (CMS/HCC); Paroxysmal atrial fibrillation (CMS/HCC)Start: 03-01-2024 End: 45-29-5337ylglsxgxdsLEKISJ J HEMEYERNot AvailableStart: 03-01-2024 End: 79-97-8791Moqaaf flowsheetXavier Robbins MD Work Phone: noms CI FM 100Start: 03-01-2024 End: 86-62-8688Tsutwr flowsheetXavier Robbins MD Work Phone: noms CI 100Start: 12-09-2023 End: 64-41-3173Rbwhzo outpatient visit 25 minutesXavier Robbins MD Work Phone: noms CI 100Comment on above:Benign essential hypertension (CMS/HCC); Hypertensive nephropathy (CMS/HCC); Stage 3a chronic kidney disease (HCC) (CMS/HCC); Microalbuminuria; Mixed hyperlipidemia (CMS/HCC); Restless leg syndrome; Morbid obesity due to excess calories (CMS/HCC); Uses roller walker; Chronic pain syndrome; Urge incontinence of urineStart: 10-06-2023 End: 67-71-6952Mzcgmo outpatient visit 15 minutesGus Malik CORE WORKER[employer]D [employer] Work Phone: [facility] on above:Paroxysmal atrial fibrillation (Multi) (Primary Dx); 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; ASHD (arteriosclerotic heart disease); Primary hypertension; Mixed hyperlipidemia; Cardiomyopathy, ischemic; BMI 34.0-34.9,adultStart: 10-06-2023 End: 08-81-5157zxwdptphiiFLJNXCrisp Regional Hospital AmbulatoryStart: 09-21-2023 End: 18-66-7989zqjvvwqrraNDRSEArch[facility] AmbulatoryStart: 09-04-2023 End: 67-49-9064Ebhavohju Result EncounterGeneric External Data ProviderNOMS External Department UnsolicitedStart: 09-04-2023 End: 67-59-7449Zrhxmottr Result EncounterGeneric External Data ProviderNOMS External Department UnsolicitedStart: 09-04-2023 End: 61-65-5620Zbjclggaqo hospital visit by Amador Villagomez Echo/Vasc Room 2[facility] EastComment on above:Paroxysmal atrial fibrillation (Multi); ASHD (arteriosclerotic heart disease); Cardiomyopathy, ischemicStart: 09-04-2023 End: 49-66-0469hfpiwdjashXWLAORiverview Health Institute Start: 08-19-2023 End: 54-22-7803Lrcykr outpatient visit 25 minutesGus Mcgarry [place] CORE WORKER[employer] Work Phone: uh [facility] HealthComment on above: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 (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); Paroxysmal atrial fibrillation (Multi); ASHD (arteriosclerotic heart disease); Mixed hyperlipidemia; Primary hypertension; BMI 34.0-34.9,adult; Cardiomyopathy, ischemicStart: 08-19-2023 End: 35-67-5691tinooahatkRGHYG [facility] AmbulatoryStart: 02-18-2023 End: 53-66-1818Rezdps outpatient visit 15 minutesDemetripaco Canales DO Work Phone: uh [facility] HealthComment on above:ASHD (arteriosclerotic heart disease); History of myocardial infarction; Status post insertion of drug eluting coronary artery stent; Class 2 obesity due to excess calories with body mass index (BMI) of 36.0 to 36.9 in adult, unspecified whether serious comorbidity present; SOB (shortness of breath) on exertionStart: 12-27-2022 End: 17-88-4150ubkalagmhoHyepy Keller Other [employer] Other Start: 86-29-0201Thxvob outpatient visit 15 minutes [facility] ClydeStart: 13-23-5180ebmlvgclgbZlWesly RobbinsFacility:[id number]: 01-47-8923Befilb outpatient visit 15 minutesXavier Robbins Work Phone: [phone]-Zpqbs [facility] 250 DO Work Phone: Start: 82-17-1136Azernw outpatient visit 25 minutes Xavier Robbins Work Phone: [phone]-Atadk [facility] 250 DO Work Phone: Start: 01-41-5525zyszbiynelRyDr. Xavier Robbins Facility:[id number]: 88-40-7429kmvbjdakirAyWesly RobbinsFacility:[facility] Start: 03-13-2022 End: 11-66-3943lxvnmahsuiZDDQZOF PROVIDERFacility:METROHealthStart: 03-13-2022 End: 70-26-1585Apyvwxhhai and management of inpatientMD Dario Dickson Work Phone: [facility] Start: 03-13-2022 End: 65-82-5236tucxgrepwtKS XAVIER ITZELFacility:H1 Procedures DateProcedureProcedure DetailPerforming ClinicianStart: 72-59-9974VX of right hipEdalejandro Robbins MD Work Phone: Start: 39-81-9303Pbujo X-ray of right hipXavier Itzel NOLAN Work Phone: Start: 60-81-0186Zlbjt i surg pathology gross examination onlyEdalejandro Robbins MD Work Phone: Start: 49-95-2321Kxfdh hip unilateral with pelvis 2-3 viewsMattabdirizak RENEE Work Phone: Start: 46-37-1978Jkrdm 1996 panel - Serum or Plasma Gama Canales DO Work Phone: Start: 12-51-6538WOKEGLRIFRJSW ECHO (TTE) MITCHELL MALIKStart: 09-04-2023 End: 40-89-2896Oryn tthrc r-t 2d w/wom-mode compl spec&colr dDgabriella Malik C[employer] WORKER[employer] Work Phone: Start: 83-45-2240HdfyoucyllgDktcu Smith C[employer] WORKER[employer] Work Phone: Start: 44-09-8420Dtsshfi of placement of stent for coronary artery diseaseStatus post insertion of drug eluting coronary artery stentWipaco Canales DO Work Phone: Start: 35-34-5887FV Coronary Thrombolysis ICMD Darioshai Forman Work Phone: Start: 46-09-5131RN LHC & COR AngioMD Dario Dickson Work Phone: Start: 25-01-5066PI PCI AMI 1st Vessel CX ROMAN Forman Work Phone: Start: 98-64-7344SK Dario Forman Work Phone: Start: 65-13-0350WbdmszakzidUsgyg Smith C[employer] WORKER[employer] Work Phone: History of placement of stent [...] Work Phone: Plan of Treatment DateCare ActivityDetailAuthorStart: 63-21-2764Iszqm panelLipid PanelSouthwest General Health CenterStart: 32-72-1415Znymvotmi for malignant neoplasm of colon [facility] HealthcareStart: 08-46-2835Nuusogcpk vaccinationInfluenza Vaccine (#1)NOMS HealthcareComment on above:Postponed from 12/19/2024 (Patient Refused)Start: 57-20-2893Faexamqgpcsx Vaccine: 65+ Years (2 of 2 - PCV)Pneumococcal Vaccine: 65+ Years (2 of 2 - PCV)NOMS HealthcareComment on above:Postponed from 09/22/2019 (Patient Refused)Start: 07-05-2025 End: 63-98-6191Iohvrmh encounter weicdcnlw51/18/2026 10:30 AM EDT Office Visit [facility] [address] [facility] [address] [place] [address] Xavier Robbins MD [address] [facility] [address] [place], [place] [phone] (Work) (Fax)[facility] MedicineStart: 05-23-2025 End: 00-61-0559Dgukhdi encounter eviavdmpa91/03/2026 11:00 AM EST Office Visit [facility] [address] [place] [address] Xavier Robbins MD [address] [facility] [address] [place] [phone] (Work) (Fax)[facility]OSPITALJonathan [facility] MedicineStart: 04-04-2025 End: 43-70-0549Dnbzzfe encounter mnkizzhdv55/16/2025 10:20 AM EST Office Visit [facility] [address] [place] [address] Gama Canales DO [address] [place] [address] [facility] HospitalStart: 11-12-2025Medicare Annual Wellness (AWV)Medicare Annual Wellness (AWV)[facility] HealthcareStart: 02-08-2025 End: 13-47-6390Uexiyli encounter /22/2025 11:00 AM EDT Office Visit [facility] Patrick [address] [place] [address] [address] [facility] [address] [place] [address] Xavier Robbins MD [address] [facility] [address] [place] [phone] (Work) (Fax)[facility] Patrick Moraes [facility] MedicineStart: 01-10-2025 End: 32-86-9512Evodrnp encounter procedureNOMS CI FM 100Start: 12-19-2024 Influenza vaccinationInfluenza Vaccine (#1)[facility] HealthcareStart: 11-28-2024 End: 66-01-6389Ygwstev encounter procedureNOMS Patrickanastacio Moraes [facility] MedicineComment on above:Visit for suture removal; Uses roller walker; Morbid obesity due to excess calories ([facility])Start: 95-78-7139Ocwar X-ray of right hipXR hip RT min 2V(w/wo pelvis)*[facility]: 13-30-9145HB Hip - right 2 ViewsTriHealthtart: 11-23-2024 End: 80-65-0307Ymujjln encounter procedureNOMS BNS FMComment on above:Benign essential hypertension ; Hypertensive nephropathy ; Stage 3a chronic kidney disease ([facility]-H[facility]); Microalbuminuria; Mixed hyperlipidemia ; Restless leg syndrome; Difficulty walking; Uses roller walkerStart: 11-15-2024 End: 52-29-4158Ddvulni encounter vdpsfltco63/29/2025 11:00 AM EDT Office Visit [facility] [address] [place] [address] Xavier Robbins MD [address] [place] [address] (Fax)[facility] CI FM 100Start: 10-28-2024 End: 55-68-7375Utqmmsc encounter procedureNOMS FB ORTHOPAEDICSComment on above: Acute right hip pain (Primary Dx)Start: 10-13-2024 End: 27-16-8898Krumhql encounter fhyeowlyf48/26/2025 4:30 PM EDT Office Visit [facility] CI FM [address] [facility] [address] [place] [address] Xavier Robbins MD [address] [place] [address] (Fax) Chronic pain syndrome; Status post left hip replacement; History of right hipreplacement; Morbid obesity due to excess calories ([facility])NOMS CI FM 100Comment on above:Chronic pain syndrome; Status post left hip replacement; History of right hip replacement; Morbid obesity due to excess calories ([facility])Start: 18-75-3763Rpaeppcht for malignant neoplasm of colonColorectal Cancer ScreeningNOMS HealthcareComment on above:Postponed from 1950 (Other Medical Reasons)Start: 07-19-2024 End: 44-31-0171Eleigum encounter qixobektj03/01/2025 2:00 PM EDT Office Visit [facility] [address] [place] [address] Xavier Robbins MD [address] [place] [address] (Fax) Chronic pain syndromeNOMS CI FM 100 Comment on above:Chronic pain syndromeStart: 07-12-2024 End: 04-79-1752Xuxrnny encounter lhsuyazfl89/25/2025 11:00 AM EDT Office Visit [facility] [address] [place] [address] Xavier Robbins MD [address] [place] [address] (Fax)NOMS CI FM 100Start: 05-31-2024 End: 49-44-2241Bugdrawqtsyrw metabolic 2000 panel - Serum or PlasmaComprehensive metabolic panel Lab Routine Benign essential hypertension (CMS/HCC) Hypertensive nephropathy (CMS/HCC) Stage 3a chronic kidney disease (HCC) (CMS/HCC) Expected: 05/31/2024 (Approximate), Expires: 05/31/2025[facility] Work Phone: Comment on above:Expected: 05/31/2024 (Approximate), Expires: 05/31/2025Start: 05-31-2024 End: 91-31-9915Mmqyf 1996 panel - Serum or PlasmaLipid panel Lab Routine Mixed hyperlipidemia (CMS/HCC) Expected: 05/31/2024 (Approximate), Expires:05/31/2025 NOMS HealthcareComment on above:Expected: 05/31/2024 (Approximate), Expires: 05/31/2025Start: 05-31-2024 End: 62-31-4991Yfsqinu encounter procedureNOMS CI FM 100Start: 39-66-8047XQVBL- 19 Vaccine ( season)COVID-19 Vaccine ( season)[facility]: 29-34-6953Dvlvmuknw for malignant neoplasm of breastMammogramUnDiley Ridge Medical Center: 87-13-0699Yxsncyuzmcax Vaccine: 65+ Years (2 of 2 - PCV)Pneumococcal Vaccine: 65+ Years (2 of 2 - PCV) NOMS HealthcareComment on above:Postponed from 09/22/2019 (Other Patient Reasons)Start: 11-20-2024Medicare Annual Wellness (AWV)Medicare Annual Wellness (AWV)[facility] HealthcareStart: 02-24-2024 End: 68-80-6924Lpzvbgf encounter sfhfolwfq67/06/2024 11:30 AM EST Office Visit [address] [place] [address] Gama Canales, [address] [place] [address] [facility]: 38-90-0117Pplppdluz vaccination [facility]: 64-78-3586Lrqayicd mellitus screening Diabetes ScreeningSelect Medical Specialty Hospital [facility]: 78-18-2563WEQ High Risk: (Elderly (60+) or Population) (1 - 1-dose 75+ series)RSV High Risk: (Elderly (60+) or Population) (1 - 1-dose 75+ series)[facility]: 09-04-2023 End: 63-33-6980Msgxaax encounter fcegzdktr16/17/2024 10:45 AM EDT Appointment [address] [place] [address] [facility]: 08-19-2023 End: 87-47-2254AM Heart TransthoracicTransthoracic Echo Complete Echocardiography Routine Paroxysmal atrial fibrillation (Multi) ASHD (ar teriosclerotic heart disease) Cardiomyopathy, ischemic Expected: 08/19/2023 (Approximate), Expires:08/18/2025[facility] Service Area Work Phone: Comment on above:Expected: 08/19/2023 (Approximate), Expires: 08/18/2025Start: 88-28-1923TDY, Provider: Gama Canales, Status: Norbert, Time: 11:00 AMFUV, Provider: Gama Canales, Status: Norbert, Time: 11:00 AM[facility] 250 DO Work Phone: Start: 60-37-6455Uwoeohcvv for malignant neoplasm of colonUnDiley Ridge Medical Center: 64-49-3714KPIVV-19 Vaccine ( season)COVID-19 Vaccine ( season)[facility]: 13-75-0278Vqsidsepc vaccinationInfluenza Vaccine (#1)[facility]: 12-09-0060VQU, Provider: Gama Canales, Status: Pen, Time: 10:40 AMFUV, Provider: Gama Canales, Status: Pen, Time: 10:40 AM [place] [address] DO Work Phone: Start: 58-59-3092YIYNH-19 Vaccine (4 - Moderna series) COVID-19 Vaccine (4 - Moderna series)[facility]: 09-75-9897SqzwcdlthTriHealthtart: 41-85-9553Dlldvank [facility] Hospitaltart: 74-48-4673Bccaosfsuato Vaccine: 65+ Years (2 - PCV)Pneumococcal Vaccine: 65+ Years (2 - PCV)[facility]: 50-16-0958Ghzumivkbnta Vaccine: 65+ Years (2 of 2 - PCV) Pneumococcal Vaccine: 65+ Years (2 of 2 - PCV)[facility] Start: 64-71-8428OJyA/Tdap/Td Vaccines (1 - Tdap)DTaP/Tdap/Td Vaccines (1 - Tdap)[facility]: 08-94-8763UBA patients and/or patients aged 60+ years (1 - 1-dose 60+ series)RSV patients and/or patients aged 60+ years (1 - 1-dose 60+ series)[facility]: 14-44-2764Mqjvqa Vaccines (1 of 2)Zoster Vaccines (1 of 2) [facility]: 63-00-5085Rewhsduyh for malignant neoplasm of breastMammogramUnDiley Ridge Medical Center: 1966 Hepatitis C screeningHepatitis C ScreeningSouthwest General Health Center Start: 17-79-1133Yjjiz panelLipid PanelUnDiley Ridge Medical Center: 07-03-1949Medicare Annual Wellness VisitMedicare Annual Wellness Visit (AWV) [facility]: 37-10-3373Dvnjszelh for malignant neoplasm of colonSelect [facility]ty [facility]: 17-04-7506Lgxuievst for osteoporosisBone Density ScanSouthwest General Health CenterFibrin D-dimer [Presence] in Platelet poor plasma by Latex agglutinationTrihealth Good Samaritan HospitalPatient EducationHigh Blood Pressure (DC) Heart Attack (DC) Low Salt Diet What Can Go Wrong After a Heart Attack? Lowering Your Risk of Heart Disease Aspirin to Prevent Heart Attacks and CancerEast [facility]tr Work Phone: Patient referralEast Liverpool City Hospital Ctr Work Phone: [facility] Immunizations Immunization DateImmunizationNotesCare KnutqpfsMehdncvh71-55-2145Xgkgwoc SARS-CoV-2 Booster VaccinationEdalejandro Robbins MD Work Phone: [facility] CenterEfkpflvgct87-79-5154Naldbnyg trivalent influenza vaccine, adjuvanted, preservative freeXavier Robbins MD Work Phone: [facility] CenterKbbfcsrshj48-89-8509ojjpbgpvs virus vaccine, unspecified formulationXavier Robbins MD Work Phone: [place] [address]Olxshnivss40-61-0077Erdjebeci, High-dose Seasonal, Quadrivalent, Preservative FreeXavier Robbins MD Work Phone: [facility] CenterTdblxwkign10-42-3341Opduood Bivalent Booster VaccinationXavier Robbins MD Work Phone: [facility] CenterSqxuqgvftv45-78-5203bamxxqizt virus vaccine, unspecified formulationGama Canales DO Work Phone: [facility] Work Phone: [phone], injectable, quadrivalent, preservative freeXavier Robbins MD Work Phone: [place] [address]Lprlqxuvbo14-45-4861Ickyejore, Seasonal, Quadrivalent, AdjuvantedEdalejandro Robbins MD Work Phone: [facility] CenterQzjcmynttf88-39-3111gdbxpbhfy, injectable, quadrivalent, preservative freeEdalejandro Aguilaryer MD Work Phone: [facility] CenterPbbblfwcwu59-25-1835cmkgnqduahol polysaccharide vaccine, 23 valentAmber David Other [facility] CenterVbouzggzhv36-29-5528zumgdzrj influenza, intradermal, preservative freeXavier Robbins MD Work Phone: [facility] CenterUmczxyrzxr14-30-9754efoqozx and diphtheria toxoids, adsorbed, preservative free, for adult use (5 Lf of tetanus toxoid and 2 Lf of diphtheria toxoid)Janette Hernandez Other [employer] Other 874849-83-4708tzllxkzpjiaf polysaccharide vaccine, 23 valTrae Robbins MD Work Phone: [facility] Payers DatePayer CategoryPayerPolicy [id number] Health [id number] 2022Medicare (Managed Care) [id number] [id number] 2014MedicareMEDICARE Member Subscriber Plan / Payer (Effective 2013-Present) Name: Leia Ewing Member ID: [id number] Relation to Subscriber: Self Name: Leia Ewing Subscriber ID: [id number] Payer ID: STATE Group ID: Not on file Type: Medicare Address: [facility] [place] [id number] [id number] [id number] 2.16.840.1.153770.3.57[id number] 2.16.840.1.786340.3.579.[id number] 2.16.840.1.133774.3.57[id number] 2.16.840.1.994174.3.579.[id number] 2.16.840.1.987941.3.57[id number] 2.16.840.1.499197.3.57[id number] 2.16840.1.454084.3.579.2.3[id number] 2.16.840.1.613920.3.57[id number] 2.16.840.1.405286.3.57[id number] 2.16.840.1.388567.3.579.2.8[id number] 2.16.840.1.639004.3.579.2.534[id number] 2.16.840.1.463654.3.57[id number] 2.16.840.1.558499.3.579.2.5[id number] 2.16.840.1.020385.3.579.2.22[id number] 2.16.840.1.019539.3.57[id number] 2.16.840.1.804629.3.57[id number] 2.16.840.1.298082.3.579.2.311907-47-5632Cdluldt66704570 2.16.840.1.939842.3.579.2.822954-07-0292Qqftdik1303194 2.16.840.1.069139.3.579.2.257159-92-4515Qbozjmo4345026 2.16.840.1.860161.3.579.2.299119-80-0107Eqijnhd4219141 2.16.840.1.930975.3.579.2.249919-01-4574Acjyvth1181126 2.16.840.1.809222.3.579.2.631466-39-3759Eeewyqs2892117 2.16.840.1.425333.3.579.2.1259Private Health InsuranceEast [facility] Regional Hospital [id number] Social History DateTypeDetailFacilityStart: 03-13-2022 End: 62-65-0873Encgiyr smoking status NHISNever smoked tobacco (finding) [facility]: 36-23-2957Prc Assigned At [facility] Hospitaltart: 02-18-2023 End: 84-41-4934Pemnkvkd useCaffeine use-[facility] [address] DO Work Phone: Start: 02-18-2023 End: 95-36-4782Hda Assigned At BirthNorth WiN MS Other Start: 12-15-2022 End: 38-55-5987Ywczvos use and exposureSmokeless tobacco non-userUnMercy Memorial Hospital Work Phone: Start: 02-18-2023 End: 87-24-5389Mdtbaze intakeCurrent drinker of alcohol (finding)[facility] Work Phone: Start: 03-48-1313Nuw Assigned At [facility] HospitalNot on file [facility] Work Phone: Start: 02-08-2023 End: 64-68-3240Nkswzuze to SARS-CoV-2 (event)Not sureUnMercy Memorial HospitalStart: 08-04-2023 End: 03-85-6304Ifkmicknh beverage intakeEx-drinker (finding)[facility] HealthcareDo you belong to any clubs or organizations such as sabianist groups, ieCrowds, fraNeema or athletic groups, or school groups?NoNOMS HealthcareAre you now , , , , never or living with a partner? WidowedNOMS HealthcareHow often to you have a drink containing alcohol?NeverNOMS HealthcareStart: 98-94-7707Qmz many standard drinks containing alcohol do you have on a typical day?Patient does not drinkNOMS HealthcareDo you feel stress - tense, restless, nervous, or anxious, or unable to sleep at night because your mind is troubled all the time - these days [OSQ]Not at allNOMS Healthcare(I/We) worried whether (my/our) food would run out before (I/we) got money to buy more. Never trueNOMS HealthcareStart: 45-94-4130Tkkkvsx CommentTobacco non-user: current non-smokerNOMS HealthcareStart: 40-94-8632Tzcwcrs Comment1-2 drinks less than monthly in the past year, Caffeine intake 1-2 cups per day coffee, soda/popNOMS HealthcareStart: 84-84-0916Pftuhbi Commentwine at holidays [facility] Work Phone: SexFemale (finding)[facility] Medical Equipment Procedure CodeEquipment CodeEquipment Original TextEquipment IdentifierDates Drug-eluting coronary artery stent, zhc-rpaxyeuwboaya-irhxvpp-coated ()[id number] FDAStart: 03-13-2022 Goals DatePatient GoalDesired Activity/StatePersonal health goal Functional Status UogqRhgwlyekecOnqrctJypkkizs45-94-6991Ubhtxzx Health Questionnaire 2 item (PHQ- 2) [Reported][facility] CenterFgmbvloyfa86-52-3433Hlrzvbk Health Questionnaire 2 item (PHQ- 2) [Reported][facility] CenterWsybjqosfg80-42-6203Gqfbtwn Health Questionnaire 2 item (PHQ- 2) [Reported][facility] CenterHzrejpajoe02-97-5422Jfaydhqsnq statusPatient at Baseline [facility] Work Phone: Mental Status VdijSxmjtbzmadLbqlqrQdcybaht40-56-5729Ggznvsemr functionCognitive Status Patient at BaselineDayton [facility] Work Phone: Clinical Notes 11-02-2020 to 01-10-2025 Note Date & MtybVvkuAkyrsvgw20-23-8613 History of Present illness Narrative* Xavier Robbins [...] hives Molds & Smuts Other Reaction(s): Unknown Bsmyw-Yegxf-Sdeovmt-Pramoxine Other Reaction(s): rash,itching Nickel Rash Current Outpatient [...] 6. Morbid obesity due to excess calories ([facility]) Chronic problem that is stable monitor longitudinally [...] substitutions may have occurred. documented in this encounterSaint Mary's Health CenterWtbgyqqrqq95-03-1126 Radiology Diagnostic study noteMER[facility] Main [place] [address] [place], [place] [address] CT Scan Report Signed Patient: Leia Ewing MR#: [id number] : 1950 Acct:[id number] Age/Sex: 74 / F ADM Date: 5 Loc: CT Room: Type: [facility] Attending Dr: Skip Garcia II, MD Copies [...] Boyd M.D. 12/22/2024 11:53 PM Dictation Location: [place] [address] Transcribed By: [facility] 12/22/24 2353 Dictated By: Teddy Boyd DO 12/22/24 2347 Signed By: 12/22/24 2353 [facility]08-11-2025 History of Present illness Narrative * Xavier [...] hives Molds & Smuts Other Reaction(s): Unknown Bkqsp-Tqvou-Vzqjbau-Pramoxine Other Reaction(s): rash,itching Nickel Rash Current Outpatient [...] substitutions may have occurred. documented in this encounterSaint Mary's Health CenterLijvwovleg68-53-2452 Evaluation note* Diagnosis Onset Date Resolution Status Admit Date Chronic hip pain after total replacement of right hip joint acuteAugust 2024 2:06pmHistory of total right hip arthroplastyacuteAugust 2024 2:06pm [facility] Work Phone: [phone]) 993-788508-06-2025 History of Present illness Narrative* Xavier Robbins [...] hives Molds & Smuts Other Reaction(s): Unknown Jgdxj-Pqcrg-Xfhenzb-Pramoxine Other Reaction(s): rash,itching Nickel Rash Current Outpatient [...] LDL-C. Robert WHITTAKER et al. ALEC. 2013;310(19): 4244-9763 (http://education.[employer]/faq/AZX304) CHOL/HDLC RATIO 11/23/2024 2.5 <5.0 (calc) Final [...] active. 3. Stage 3a chronic kidney disease ([facility]-HCC) Continue to monitor longitudinally 4. Microalbuminuria Chronic [...] substitutions may have occurred. documented in this encounterSaint Mary's Health CenterEkhqtupetd04-74-6695 History of Present illness Narrative* Xavier Robbins [...] hives Molds & Smuts Other Reaction(s): Unknown Fudhz-Feosv-Efsfzer-Pramoxine Other Reaction(s): rash,itching Nickel Rash 1. Neoplasm [...] substitutions may have occurred. documented in this [facility]07-14-2025 History of Present illness Narrative* Xavier [...] charge for today's visit. documented in this [facility]07-11-2025 History of Present illness Narrative* VÍCTOR [...] of UTI with sepsis and a previous NH treated by Dr. Canales remotely were considered. To keep providers informed, itwas suggested that [facility] would be the best place for care, pending Dr. Garcia's evaluation. Gratitude was expressed for this. Diagnostic plan: Referral to Dr. Garcia for consultation to discuss treatment options. Treatment plan: Continue using the rollator and avoid excessive walking until the consultation. Clinical decision making: Concerns about UTI with sepsis and previous NH were reviewed, and keepingproviders informed, [facility] was suggested as the best destination for [...] requiring urgent evaluation. Visit was preformed using [employer] Co-pilot safety inspector speech recognition. documented in this encounterSaint Mary's Health CenterFtxbpkacez20-96-9344 History of Present illness Narrative* Xavier Robbins [...] hives Molds & Smuts Other Reaction(s): Unknown Vymye-Pyfyd-Ckzztew-Pramoxine Other Reaction(s): rash,itching Nickel Rash Current Outpatient [...] 5. Morbid obesity due to excess calories ([facility]) documented in this encounterSaint Mary's Health CenterKnptyndrve91-00-6918 History of Present illness Narrative* Xavier Robbins [...] hives Molds & Smuts Other Reaction(s): Unknown Bomru-Ayvwt-Lbcukwm-Pramoxine Other Reaction(s): rash,itching Nickel Rash Current Outpatient [...] 45 tablet; Refill: 1 documented in this encounterSaint Mary's Health CenterQvsejsxrdg49-61-1447 History of Present illness Narrative* Xavier Robbins [...] hives Molds & Smuts Other Reaction(s): Unknown Eamws-Byuft-Lvaaitg-Pramoxine Other Reaction(s): rash,itching Nickel Rash Current Outpatient [...] right knee As above documented in this encounterSaint Mary's Health CenterAxiemuwsoj90-65-9435 History of Present illness Narrative* Xavier Robbins [...] hives Molds & Smuts Other Reaction(s): Unknown Lmsop-Jkxyl-Asnyjfy-Pramoxine Other Reaction(s): rash,itching Nickel Rash Current Outpatient [...] stratification for cardiovascular disease. 5. Mixed hyperlipidemia (CMS/[facility]) - Lipid panel; Future - atorvastatin (Lipitor) 80 MG tablet; Take 1 tablet (80 mg) by mouth Daily Dispense: 90 tablet; Refill: 1 - Lipid panel 6. Paroxysmal atrial fibrillation (CMS/HCC) Chronic problem, stable, anticoagulated. Otherwise asymptomatic. 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 documented in this encounterSaint Mary's Health CenterKojgufmsja93-12-1334 History of Present illness Narrative* Gama Canales, [...] by mouth 2 times a day. LOT [id number] EXP DEC 2024 28 TABS, Disp: 180 [...] breath) on exertion 9. Cardiomyopathy, ischemic 10. snf current use of anticoagulant therapy 11. Class [...] exam, discussion and plan. documented in [facility]South[facility] Work Phone: 1(760) 232-697712-13-2024 Instructions* Patient Instructions* Danna Womack RN - [...] Provided instructions on exercise. documented in this encounterSouthwest [facility] Health Center Work Phone: 1([phone]) 231-527211-12-2024 History of Present illness Narrative* Xavier Robbins [...] Yes Vision Screening: Yes, patient sees regular asset administrator/food service tray attendant Hearing Screening: Yes, uses hearing aids Cognitive Screening Self Assessment: No concerns rasied by family members, friends, or caretakers Advance Care Planning Do you have a living will?: Yes Do you have a medical power of insurance attorney?: Yes Who is your medical power of insurance attorney?: Terrie- Daughter Objective : Pulse 96 [...] 5. Morbid obesity due to excess calories ([facility]) Chronic problem which is overall stable. She [...] monitored longitudinally. 10. Coronary artery disease involving mesa grande coronary artery of mesa grande heart without angina pectoris (CMS/HCC) Chronic problem, [...] on March 01, 2024 documented in this encounterSaint Mary's Health CenterGlgqochwvh44-62-5455 History of Present illness Narrative* Xavier Robbins [...] CULTURE URINE 07/19/2023 Final Value: Urine Culture [place] Count [facility] CULTURE URINE 07/19/2023 >100,000 CFU/ml [...] LDL-C. Robert WHITTAKER et al. ALEC. 2013;310(19): 8169-1695 (http://education.[employer]/faq/CCF673) CHOL/HDLC RATIO 11/25/2023 2.9 <5.0 (calc) Final [...] children. This test was performed on the Ivan maik c503 platform. Effective 04/06/23, a change in test platforms from the [place] [employer] to the Ivan maik c503 may have shifted HbA1c results compared to historical results. Based on laboratory validation testing conducted at [facility], the Ivan platform relative to the [place] [...] hives Molds & Smuts Other Reaction(s): Unknown Prtmu-Qghxq-Zbqaxnf-Pramoxine Other Reaction(s): rash,itching Nickel Rash Current Outpatient [...] the oxybutynin refilled today. documented in this encounterSaint Mary's Health CenterBirkgepzmu64-42-4484 Evaluation + Plan note* Assessment & Plan Note - TORIBIO Milner - 10/07/2023 1:50 PM EDT Associated Problem(s): BMI 34.0-34.9,adult Reviewed the merits of healthy lifestyle choices on overall cardiovascular health. [facility] Work Phone: 1([phone]) 680-665306-19-2024 Evaluation + Plan note* Assessment & Plan Note - TORIBIO Milner - 10/07/2023 1:50 PM EDTAssociated Problem(s): snf current use of anticoagulant therapy CHADS VASc 4 currently on full dose Eliquis age 72, weight 236 pounds. Denies bleeding diatheses Denies history of frequent falls Patient assistance form has been submitted and the daughter reports they are pending as of 4 days ago [facility] Work Phone: 1([phone]) 671-478806-19-2024 Evaluation + Plan note* Assessment & Plan Note - TORIBIO Milner - 10/07/2023 1:50 PM EDTAssociated Problem(s): Paroxysmal atrial fibrillation (Multi) Initially identification June 2023 hospitalization at [facility] in setting of UTI and hypomagnesia. Converted on Cardizem drip. EKG in office today maintaining normal sinus rhythm August 2023 follow-up Holter normal sinus rhythm, no atrial fibrillation. [facility] Work Phone: 1([phone]) 616-850806-19-2024 Miscellaneous Notes* Assessment & Plan Note - TORIBIO Milner - 10/07/2023 1:50 PM EDTAssociated Problem(s): BMI 34.0-34.9,adult Reviewed the merits of healthy lifestyle choices on overall cardiovascular health. * Assessment & Plan Note - TORIBIO Milner - 10/07/2023 1:50 PM EDT Associated Problem(s): snf current use of anticoagulant therapy CHADS VASc [...] (Multi) Initially identification June 2023 hospitalization at [facility] in setting of UTI and hypomagnesia. Converted on Cardizem drip. EKG in office today maintaining normal sinus rhythm August 2023 follow-up Holter normal sinus rhythm, no atrial fibrillation. documented in this [facility] Work Phone: 1(958) 601-933006-18-2024 History of Present illness Narrative* TORIBIO Milner [...] to the grocery store, ambulated to the [facility]. Walked into the parking lot without concerns. [...] (Multi) Initially identification June 2023 hospitalization at [facility] in setting of UTI and hypomagnesia. Converted on Cardizem drip. EKG in office today maintaining normal sinus rhythm August 2023 follow-up Holter normal sinus rhythm, no atrial fibrillation. snf current use of anticoagulant therapy CHADS VASc [...] Dr. Canales as scheduled Gus Malik MSN, CORE WORKER-SECOND CHEF, PMHNP-[facility] Please excuse any errors in grammar or translation related to this dictation. Voice recognition software was utilized to prepare this document. documented in this encounterSouthwest [facility] Center Work Phone: 1(950) 417-113406-18-2024 Instructions* Patient Instructions* TORIBIO Milner - 10/06/2023 [...] Dr. Canales as scheduled documented in this encounterSouthwest [facility] Center Work Phone: 1(697) 941-727705-01-2024 Evaluation + Plan note* Assessment & Plan Note - TORIBIO Milner - 08/19/2023 3:39 PM EDTAssociated Problem(s): BMI 34.0-34.9,adult Reviewed the merits of healthy lifestyle choices on overall cardiovascular health. 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 Denies bleeding diatheses Denies history of frequent falls May be cost prohibitive, provided with patient assistance forms and samples. [facility] Work Phone: [phone]) 695-279205-01-2024 Miscellaneous Notes* Assessment & Plan Note - TORIBIO Milner - 08/19/2023 3:39 PM EDTAssociated Problem(s): BMI 34.0-34.9,adult Reviewed the merits of healthy lifestyle choices on overall cardiovascular health. 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 [...] [address] Forman pOM3 PCI/[place] 2.75 x 18 mm Mid LAD 30 to 40% Circumflex negative RCA negative Current daily activity less than 4 METS Prior angina symptom was stomach ache , denies any recurrence. documented in this encounterSouthwest [facility] Center Work Phone: 1([phone]) 961-123605-01-2024 Evaluation + Plan note* Assessment & Plan Note - TORIBIO Milner - 08/19/2023 3:38 PM EDTAssociated Problem(s): Cardiomyopathy, ischemic February 2022 cardiac cath LVEF 45 to 50% with hypokinesis of the entire left lateral wall. [facility] Work Phone: [phone]) 270-647905-01-2024 Evaluation + Plan note* Assessment & Plan Note - TORIBIO Milner - 08/19/2023 3:38 PM EDTAssociated Problem(s): Paroxysmal atrial fibrillation (Multi) Initially identification June 2023 hospitalization at [facility] in setting of UTI and hypomagnesia. Converted on Cardizem drip. EKG in office today maintaining normal sinus rhythm [facility] Work Phone: [phone]) [phone] Evaluation + Plan note* Assessment & Plan Note - TORIBIO Milner - 08/19/2023 3:37 PM EDTAssociated Problem(s): Hypertension Optimal in office [facility] Work Phone: [phone]) 749-643505-01-2024 Evaluation + Plan note* Assessment & Plan Note - TORIBIO Milner - 08/19/2023 3:37 PM EDTAssociated Problem(s): Hyperlipidemia Tolerating high intensity statin Reports wellness labs through PCP [facility] Work Phone: [phone] Evaluation + Plan note* Assessment & Plan Note - TORIBIO Milner - 08/19/2023 3:36 PM EDTAssociated Problem(s): ASHD (arteriosclerotic heart disease) Mar 13, [address] Forman pOM3 PCI/[place] 2.75 x 18 mm Mid LAD 30 to 40% Circumflex negative RCA negative Current daily activity less than 4 METS Prior angina symptom was stomach ache , denies any recurrence. T [facility] Work Phone: [phone]) [phone] History of Present illness Narrative* TORIBIO Milner [...] of June 2023 she was hospitalized at [facility] due to weakness, noted to have A-fib [...] at home. She reports that her prior NH symptom was stomachache and denies any recurrence. [...] (Multi) Initially identification June 2023 hospitalization at [facility] in setting of UTI and hypomagnesia. Converted on Cardizem drip. EKG in office today maintaining normal sinus rhythm Cardiomyopathy, ischemic February 2022 cardiac cath LVEF 45 to 50% with hypokinesis of the entire left lateral wall. snf current use of anticoagulant therapy CHADS VASc [...] will bring in sooner Gus Malik MSN, CORE WORKER-SECOND CHEF, PMHNP-[facility] Please excuse any errors in grammar or translation related to this dictation. Voice recognition software was utilized to prepare this document. documented in this encounterSouthwest [facility] Center Work Phone: 1([phone]) 511-307805-01-2024 Instructions* Patient Instructions* TORIBIO Milner - 08/19/2023 [...] will bring in sooner documented in this encounterSouthwest [facility] Center Work Phone: [phone]) 967-951011-01-2023 History of Present illness Narrative* Gama Canales, [...] of breath) on exertion documented in this encounterSouthwest [facility] Center Work Phone: [phone]) 922-618411-01-2023 Instructions* Patient Instructions* Aries Metzger MA - [...] Fall Prevention Education Given documented in this encounterSouthwest [facility] Center Work Phone: [phone]) 154-501109-09-2023 Evaluation note* Encounter Date Diagnosis Assessment Notes [...] understanding and is agreeable with treatment plan Supersolid Other 11-25-2022 Discharge summary Author Dario Forman [facility] March 14, 2022 3:25pmNote Date/TimeNov2021 3:10pm[place] [address] Discharge Summary Signed Patient: Leia Ewing MR#: [id number] : 1950 Acct:[id number] Age/Sex: 71 / F Adm Date: 2 Loc: Room: [address] [place] [address]: Dario Forman MD Copies to: [...] 71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 EKG was consistent with acute inferior STEMI. I was contacted and the [facility] cardiac Emergency Services Director was activated. The patient was broughtdirectly to the cardiaccatheterization suite for emergent treatment of acute inferolateral lateral STEMI. Please see my cardiac catheterization and PCI notes for full details of the patient's procedure. However the patientwas found to have an occluded third OM branch of the left circumflex. Primary PCI was successfully performed with implantation of a single resolute [place] drug-eluting stent with voodoo of JHONNY-3 flow into the target vessel. [...] with the right arm 2. Follow-up in [facility] within 10 days 3. Enrollment in [...] Sodium 139, Potassium 4.2, Chloride 108, Carbon Eeekwhv82.3, Anion Gap 12.9, BUN 17, Creatinine 0.99, [...] % (Auto) 80.0, Lymph % (Auto) 8.8, Ashley % (Auto) 10.2, Eos % (Auto) 0.7, Baso % (Auto) 0.3, Neut # (Auto) 10.1 H, Lymph # (Auto) 1.1, Ashley # (Auto) 1.3 H, Eos # (Auto) [...] <Electronically signed by Dario Forman MD> 03/14/22 [address] [facility] Work Phone: [phone]) 127-903011-24-2022 History and physical note Author Dario Forman [facility] March 13, 2022 2:01pmNote Date/TimeNov2021 1:49pmM[place] [address] Cardiology H&P Signed Patient: Leia Ewing MR#: [id number] : 1950 Acct:[id number] Age/Sex: 71 / F Adm Date: 2 Loc: Room: 6N5855-8 Type: ADM IN Attending Dr: Dario Forman [...] patient's family member took her directly to [place] emergency department for evaluation. In [place] ED initial ECG showed a current of [...] secondary to the patient's urgently ill condition) [facility] Vaccinated for COVID-19?: Unknown Meds Medications and [...] Dysrhythmias Sinus rhythms and dysrhythmias: sinus rhythm NH, pacemaker, normal Myocardial infarction: inferior NH (acute or recent) A&P - Cardiology (1) [...] signed by Dario Forman MD> 03/13/22 [address] [facility] Work Phone: [phone]) 315-489911-24-2022 Procedure [facility]11-24-2022 Procedure [facility]10-18-2021 Note HNO ID: [id number] Author: Yonas Luciano PA-C Service: ? Author Type: Physician Photogrammetry Airplane Pilot Type: Progress Notes Filed: 02/04/2021 3:03 [...] previously because of the arthritic changes near ogdd-zc-tdov of the lateral compartment she will have [...] osteoarthritis of left knee (primary encounter diagnosis) (S83.621D) Sprain of medial collateral ligament of left [...] Has a valgus aligned knee with near menp-vk-eila lateral compartment Follow up: As needed consider cortisone injection Films prior to visit: No additional imaging warranted. SIGNATURE: Yonas Luciano PA-C PATIENT NAME: Leia Ewing DATE: February 04, 2021 TIME: 2:40 [facility]09-27-2021 NoteHNO ID: [id number] Author: Yonas Luciano PA-C Service: ? Author Type: Physician Photogrammetry Airplane Pilot Type: Progress Notes Filed: 01/14/2021 12:50 [...] mild Effusion: effusion present Assessment/Plan ASSESSMENT Diagnosis (S83.557D) Sprain of medial collateral ligament of left [...] Ewing DATE: January 14, 2021 TIME: 12:41 [facility]07-16-2021 NoteHNO ID: [id number] Author: Daiana Bond Ma Service: ? Author [...] They are to contact casting services at [phone] with any questions. Daiana Bond [facility]07-16-2021 NoteHNO ID: [id number] Author: Yonas Luciano PA-C Service: ? Author Type: Physician Photogrammetry Airplane Pilot Type: Progress Notes Filed: 11/02/2020 1:57 [...] and sleeping. 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 SIGNATURE: Yonas Luciano PA-C PATIENT NAME: Leia Ewing DATE: November 02, 2020 TIME: 1:45 [facility]07-16-2021 NoteHNO ID: [id number] Author: RT Timo(R) Service: ? Author Type: Sales Correspondence Clerk Type: Progress Notes Filed: 11/02/2020 1:00 PM [...] BY: RT Timo(R) November 02, 2020 12:59 [facility]* Diagnosis Onset Date Resolution Status [id number] [facility] Work Phone: Evaluation note* Diagnosis ASHD (arteriosclerotic heart disease) Coronary atherosclerosis of unspecified type of vessel, mes[place] or graft History of myocardial infarction Status post insertion of drug eluting coronary artery stent Class 2 obesity due to excess calories with body mass index (BMI) of 36.0 to 36.9 in adult, unspecified whether serious comorbidity present SOB (shortness of breath) on exertion Shortness of breath documented in this encounter [facility] Work Phone: Evaluation note* Diagnosis snf current use of anticoagulant therapy- Primary Paroxysmal atrial fibrillation (Multi) Atrial fibrillation ASHD (arteriosclerotic heart disease) Coronary atherosclerosis of unspecified type of vessel, [place] or graft Mixed hyperlipidemia Primary hypertension Unspecified essential hypertension BMI 34.0-34.9,adult Cardiomyopathy, ischemic Other specified forms of chronic ischemic heart disease documented in this encounter [facility] Work Phone: Evaluation note* Diagnosis Paroxysmal atrial fibrillation (Multi) Atrial fibrillation ASHD (arteriosclerotic heart disease) Coronary atherosclerosis of unspecified type of vessel, [place] or graft Cardiomyopathy, ischemic Other specified forms of chronic ischemic heart disease documented in this encounter [facility] Work Phone: Evaluation note* Diagnosis Paroxysmal atrial fibrillation (Multi)- Primary Atrial fibrillation snf current use of anticoagulant therapy ASHD (arteriosclerotic heart disease) Coronary atherosclerosis of unspecified type of vessel, [place] or graft Primary hypertension Unspecified essential hypertension Mixed hyperlipidemia Cardiomyopathy, ischemic Other specified forms of chronic ischemic heart disease BMI 34.0-34.9,adult documented in this encounter [facility] Work Phone: Evaluation note* Diagnosis Encounter [...] without complication (CMS/HCC) Coronary artery disease involving mesa grande coronary artery of mesa grande heart without angina pectoris (CMS/HCC) History of [...] (CMS/HCC) Atrial fibrillation documented in this encounter [facility] HealthcareEvaluation note* Diagnosis snf current use of anticoagulant therapy- Primary Paroxysmal atrial fibrillation (Multi) Atrial fibrillation ASHD (arteriosclerotic heart disease) Coronary atherosclerosis of unspecified type of vessel, [place] or graft Mixed hyperlipidemia Primary hypertension Unspecified essential hypertension BMI 34.0-34.9,adult Cardiomyopathy, ischemic Other specified forms of chronic ischemic heart disease Paroxysmal atrial fibrillation (Multi)- Primary 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 ASHD (arteriosclerotic heart disease) Coronary atherosclerosis of unspecified type of vessel, [place] or graft Primary hypertension Unspecified essential hypertension Mixed hyperlipidemia Cardiomyopathy, ischemic Other specified forms of chronic ischemic heart disease BMI 34.0-34.9,adult ASHD (arteriosclerotic heart disease) Coronary atherosclerosis of unspecified type of vessel, [place] or graft History of myocardial infarction History of percutaneous coronary intervention Paroxysmal atrial fibrillation (Multi) Atrial fibrillation Status post insertion of drug eluting coronary artery stent Mixed hyperlipidemia Primary hypertension Unspecified essential hypertension SOB (shortness of breath) on exertion Shortness of breath Cardiomyopathy, ischemic Other specified forms of chronic ischemic heart disease snf current use of anticoagulant therapy Class 2 obesity due to excess calories with body mass index (BMI) of 36.0 to 36.9 in adult, unspecified whether serious comorbidity present Never smoked tobacco documented in this encounter [facility] Work Phone: Evaluation note* Diagnosis Benign [...] hyperlipidemia Paroxysmal atrial fibrillation (CMS/HCC) 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 Restless leg [...] calories (CMS/HCC) BMI 35.0-35.9,adult Benign essential hypertension ([facility]) Essential hypertension, benign documented in this encounter [facility] HealthcareEvaluation note* Diagnosis Contusion of right hip, initial encounter- Primary History of right hip replacement Chronic pain syndrome Status post left hip replacement Morbid obesity due to excess calories ([facility]) Contusion of right hip, initial encounter History of right hip replacement documented in this encounter [facility] HealthcareEvaluation note* Diagnosis Acute right hip pain- Primary Right hip pain Pain in joint, pelvic region and thigh History of total hip replacement, right documented in this encounter [facility] HealthcareEvaluation note* Diagnosis Cellulitis of left upper extremity- Primary documented in this encounter [facility] HealthcareEvaluation note* Diagnosis Onset Date Resolution Status Admit Date Chronic hip pain after total replacement of right hip joint acuteAugust 2024 2:06pmHistory of total right hip arthroplastyacuteAugust 2024 2:06pm [facility] Work Phone: Evaluation note* Diagnosis Neoplasm of uncertain behavior- Primary Neoplasm of uncertain behavior, site unspecified Enlarged pigmented skin lesion Skin inflammation Unspecified local infection of skin and subcutaneous tissue Visit for suture removal Uses roller walker Morbid obesity due to excess calories ([facility]) documented in this encounter [facility] HealthcareEvaluation note* Diagnosis Visit for suture removal documented in this encounter [facility] HealthcareEvaluation note* Diagnosis Benign essential hypertension Essential hypertension, benign Hypertensive nephropathy Unspecified hypertensive kidney disease with chronic kidney disease stage I through stage IV, or unspecified Stage 3a chronic kidney disease ([facility]) Microalbuminuria Proteinuria Mixed hyperlipidemia Mixed hyperlipidemia Restless [...] climacteric statesSurgical Historyreduction of closed fracture left [id number] HistoryBilateral tubal hbfpgexe1209Yqcmfime HistoryCataract [id number] HistoryColonoscopy; Disease:Polyp 2 year follow up [id number] HistoryRT ARLIN Dr. Novak06/22/17urgical HistoryLT ARLIN Dr. Novak09/20/18Hospitalization HistoryER broken foot -- seeing Dr. Fournier06/2016Hospitalization HistoryRt Total Hip Replacement [facility] Dr Novak06/22/2017 Supersolid Other Reason for referral (narrative)* Consultation (Routine) - AuthorizedSpecialtyDiagnoses / ProceduresReferred By Contact Referred To ContactCardiology Diagnoses ASHD (arteriosclerotic heart disease) History of myocardial infarction Status post insertion of drug eluting coronary artery stent Procedures Follow Up In Cardiology Gama Canales DO [address] [facility] [address] [place] [address] Parker Gama DO Jonathan [facility] [facility] [place] [address] Referral IDStatusReasonStart DateExpiration DateVisits RequestedVisits [id number]/1/202310/31/202411 [facility] Work Phone: Reason for referral (narrative)No reason for referral information availableMorrow County Hospital Work Phone: Summary Purpose Family History [...] DNRAdvance Directives and Living Will Power Of Anodiser Advance Directive Response Recorded Date/ Time Advance Directives No February 1:26pm Chief Complaint and Reason for Visit Chief Complaint Stemi Reason for Visit [id number] Chief Complaint Admit Date Z96.641 - Presence [...] December 22 2:19pm LAB RESULTS, CT RESULTS [facility] January 9:26am Chief Complaint * LEIA EWING is being seen for a 6 month follow-up of. * 71-year-old female returns for follow-up and doing well she has no cardiovascular complaints. She denies angina or nitrate usage or recurrent hospitalizations. She sustained inferior NH in February 2022 around [facility], underwent primary PCI of the third [...] usage or recurrent hospitalizations. She sustained inferior NH in February 2022 around [facility], underwent primary PCI of the third [...] Procedures Transthoracic Echo Complete Transthoracic Echo Complete LA ECHO TTHRC R-T 2D W/WOM-MODE COMPL SPEC&COLR D Gus Malik, CORE WORKER-SECOND CHEF [address] [facility] [address] [place] [address] Referral IDStatusReasonStart DateExpiration DateVisits RequestedVisits [id number] Review Perform Procedure Additional Source Comments INFORMATION SOURCE (unrecogn ized section and content) DATE CREATED AUTHOR 05/23/2021 [facility] DATE CREATED AUTHOR AUTHOR'S ORGANIZ ATION 12/14/2021 [facility] [employer] DATE CREATED AUTHOR AUTHOR'S ORGANIZ ATION 03/19/2022 [facility] DATE CREATED AUTHOR AUTHOR'S ORGANIZ ATION 03/19/2022 [employer] DATE CREATED AUTHOR AUTHOR'S ORGANIZ ATION 08/22/2022 [facility] DATE CREATED AUTHOR AUTHOR'S ORGANIZ ATION 08/22/2022 [employer] DATE CREATED AUTHOR AUTHOR'S ORGANIZ ATION 11/04/2023 [facility] DATE CREATED AUTHOR AUTHOR'S ORGANIZ ATION 06/16/2024 [facility] DATE CREATED AUTHOR AUTHOR'S ORGANIZ ATION 11/26/2024 [facility] [employer] [facility] DATE CREATED AUTHOR AUTHOR'S ORGANIZ ATION 12/25/2024 [facility] DATE CREATED AUTHOR AUTHOR'S ORGANIZ ATION 01/11/2025 [facility] EPIC Care Teams [...] Admit Provider, Attending Provider A ctive [facility] ProviderActiveTeam MemberRelationshipSpecialty Start DateEnd Date Xavier Robbins MD [address] [place] [phone] PCP - Tbnolpx80/25/22Team MemberRelationshipSpecialtyStart DateEnd Date Xavier Robbins MD [address] [facility] [place] [phone] PCP - Xpkwdcv92/25/22Team MemberRelationshipSpecialtyStart DateEnd Date Xavier Robbins MD [address] [facility] [place] [phone] PCP - Xfospkb69/25/22Team MemberRelationshipSpecialtyStart DateEnd Date Xavier Robbins MD [address] [facility] [place] [address] PCP - Oljduba97/25/22Team MemberRelationshipSpecialtyStart DateEnd Date Xavier Robbins MD [address] [place] [address] [address] (Fax) PCP - [facility]04/20/21 Xavier Robbins MD [address] [place] [address] [address] (Fax) PCP - GeneralFamily Medicine09/25/22 Alberto Canales MD [address] [address] Referring PhysicianCardiology08/04/23 Dilia Kilpatrick, RN Registered NurseFamily Medicine08/05/23Team MemberRelationshipSpecialtyStart Date End Date Xavier Robbins MD [address] [place] [address] (Fax) PCP - [facility]04/20/21 Xavier Robbins MD [address] [place] [address] (Fax) PCP - Generalmi Medicine09/25/22 Alberto Canales MD [address] [address] Referring PhysicianCardiology08/04/23 Dilia Kilpatrick, KERI Registered NurseEn[facility] Medicine08/05/23Team MemberRelationshipSpecialtyStart Date End Date Xavier Robbins MD [address] [phone] PCP - Wunjlnd66/25/22Team MemberRelationshipSpecialtyStart DateEnd Date Xavier Robbins MD [address] [place] [address] (Fax) PCP - [facility]04/20/21 Xavier Robbins MD [address] [place] [address] PCP - GeneralFamily Medicine09/25/22 Alberto Canales MD [address] [address] (Fax) Referring PhysicianCardiology08/04/23 Dilia Kilpatrick, KERI Registered NurseJen[facility]08/05/23Team MemberRelationshipSpecialtyStart Date End Date Xavier Robbins MD (Fax) PCP - Generalmily Medicine09/25/22 Alberto Canales MD [address] [place] [address] (Fax) Referring PhysicianCardiology08/04/23 Dilia Kilpatrick RN Registered NurseJenkins County Medical Center08/05/23Te MemberRelationshipSpecialtyStart Date End Date Xavier Robbins MD (Fax) PCP - [facility] Medicine09/25/22 Alberto Canales MD [address] [place] [address] (Fax) Referring PhysicianCardiology08/04/23 Dilia Kilpatrick RN Registered NurseJenkins County Medical Center08/05/23Te MemberRelationshipSpecialtyStart Date End Date Xavier Robbins MD (Fax) PCP - GeneralEn[facility] Medicine09/25/22 Alberto Canales MD [address] [place] [phone] (Fax) Referring PhysicianCardiology08/04/23 Dilia Kilpatrick, KERI Registered [facility] Medicine08/05/23Team MemberRelationshipSpecialtyStart Date End Date Xavier Robbins MD (Fax) PCP - [facility] Medicine09/25/22 Alberto Canales MD [address] [facility] [address] [place] [address] (Fax) Referring PhysicianCardiology08/04/23Team MemberRelationshipSpecialtyStart Date End Date Xavier Robbins MD (Fax) PCP - [facility] Medicine09/25/22 Alberto Canales MD [address] [facility] [address] [place] [address] (Fax) Referring PhysicianCardiology08/04/23Team MemberRelationshipSpecialtyStart Date End Date Xavier Robbins MD (Fax) PCP - [facility] Medicine09/25/22 Alberto Canales MD [address] [facility] [address], [address] [place] [address] Referring PhysicianCardiology08/04/23Team MemberRelationshipSpecialtyStart Date End Date Xavier Robbins MD (Fax) PCP - [facility] Medicine09/25/22 Alberto Canales MD [address] [facility] [address] [place] [address] Referring PhysicianCardiology08/04/23Team MemberRelationshipSpecialtyStart Date End Date Xavier Robbins MD (Fax) PCP - [facility]09/25/22 Alberto Canales MD [address] [facility] [address] [place] [address] Referring PhysicianCardiology08/04/23Team MemberRelationshipSpecialtyStart Date End Date Xavier Robbins MD (Fax) PCP - [facility]09/25/22 Alberot Canales MD [address] [place] [address] [address], [address] [place] [address] Referring PhysicianCardiology08/04/23Team MemberRelationshipSpecialtyStart Date End Date Xavier Robbins MD (Fax) PCP - [facility]09/25/22 Alberto Canales MD [address] [facility] [address] [place] [address] Referring PhysicianCardiology08/04/23Team MemberRelationshipSpecialtyStart Date End Date Xavier Robbins MD [address] [address] (Fax) PCP - [facility]11/15/24 Alberto Canales MD [address] [place] [address] [address], [address] [place] [address] Referring PhysicianCardiology08/04/23Team MemberRelationshipSpecialtyStart Date End Date Xavier Robbins MD [address] [place] [address] (Fax) PCP - [facility] Medicine11/15/24 Alberto Canales MD [address] [facility] [address] [place] [address] Referring PhysicianCardiology08/04/23Team MemberRelationshipSpecialtyStart Date End Date Xavier Robbins MD [address] [place] [address] (Fax) PCP - [facility]11/15/24 Alberto Canales MD [address] [facility] [address] [place] [address] Referring PhysicianCardiology08/04/23 Team Status: Inactive Member Role Status Dates Xavier Robbins MD Primary Care Provider Active Start: December 22, 2024 End: December 22, 2024Robcara Garcia II, MDAttending ProviderActiveStart: December 22, 2024 End: December 22, 2024Team MemberRelationshipSpecialtyStart DateEnd Date Xavier Robbins MD [address] [place] [address] (Fax) PCP - [facility] Medicine11/15/24 Xavier Robbins MD [address] [place] [address] (Fax) PCP - [facility]04/20/24 Alberto Canales MD [address] [facility] [address] [place] [address] Referring PhysicianCardiology08/04/23Team MemberRelationshipSpecialtyStart Date End Date Xavier Robbins MD [address] [place] [address] (Fax) PCP - Generalmily Medicine11/15/24 Xavier Robbins MD [address] [place] [address] (Fax) PCP - Human04/20/24 Alberto Canales MD [address] [facility] [address] [place] [address] Referring PhysicianCardiology08/04/23 Team Status: Inactive Member Role Status Dates Xavier Robbins MD Primary Care Provider Active Start: January 20, 2025 End: January 20, 2025Robcara Garcia II MDAttending ProviderActiveStart: January 20, 2025 End: January 20, 2025Team MemberRelationshipSpecialtyStart DateEnd Date Xavier Robbins MD [address] [place] [address] (Fax) PCP - [facility]04/20/2211 Xavier Robbins MD [address] [place] [address] (Fax) PCP - Generalmily Medicine Xavier Robbins MD [address] [place] [address] (Fax) PCP - Generalmily Medicine11/15/24 Xavier Robbins MD [address] [facility] [address] [place] [address] PCP - Human04/20/24 Alberto Canales MD [address] [facility] [address] [place] [address] Referring PhysicianCardiology08/04/23 Dilia Kilpatrick RN [address] [place] [address] Registered NurseFamily Medicine Skip Garcia MD [address] [place] [address] Referring PhysicianOrthopaedic Pfffwhz34/20/25 Antonia Hull PA [address] [place] [address] Physician AssistantOrthopaedic Aphacgc30/20/25 REASON FOR VISIT (unrecogniz ed section and content) ReasonCommentsFollow-eh0hClliurRttocrvxXymlpc FibrillationSpecialtyDiagnoses / ProceduresReferred By ContactReferred To ContactCardiology Diagnoses Paroxysmal atrial fibrillation (Multi) ASHD (arteriosclerotic heart disease) Cardiomyopathy, ischemic Procedures Transthoracic Echo Complete Transthoracic Echo Complete LA ECHO TTHRC R-T 2D W/WOM-MODE COMPL SPEC&COLR D Gus Malik, CORE WORKER-SECOND CHEF [address] [facility] [address] [place] [address] Referral IDStatusReasonStart DateExpiration DateVisits RequestedVisits [id number] Perform Procedure [id number]-qkXays ResultsReasonCommentsAnnual Exam ReasonCommentsAnnual ExamSpecialtyDiagnoses / ProceduresReferred By Contact Referred To ContactCardiology Diagnoses ASHD (arteriosclerotic heart disease) History of myocardial infarction Status post insertion of drug eluting coronary artery stent Procedures Follow Up In Cardiology Gama Canales, [address] [facility] [address], [place] [phone] Phone: tel: fax: Gama Canales, DO [address] [facility] [address] [place] [address] Phone: tel: fax: Referral IDStatusReasonStart DateExpiration DateVisits RequestedVisits [id number]/1/202310/31/588318IbtbmiWvlmozdqJyfdunimwcan HyperlipidemiaRestless LegsReasonCommentsMed RefillReasonCommentsKnee PainReason CommentsHip PainReasonCommentsPainReasonCommentsFollow-upFallReasonComments Suture [...] BE BASED ON THE PRIMARY CLINICAL RECORDS. [employer] provides no warranty or guarantee of the accuracy or completeness of information in this document.
[2025-02-26] MEDS: CELECOXIB 100 MG CAPSULE PO ×2 (14:29→20:26)
[2025-02-26] MEDS: 0.9 % SODIUM CHLORIDE 1,000 ML 125 ML IV ×2 (14:29→22:32)
[2025-02-26] MEDS: SENNOSIDES/DOCUSATE SODIUM 1 TAB TABLET PO (14:29)
[2025-02-26] MEDS: CYCLOBENZAPRINE HCL 10 MG TABLET 5 MG PO ×2 (14:29→20:26)
[2025-02-26] MEDS: FLU VACC TS2025-26(65YR UP)/PF 180 MCG/0.5 ML SYRINGE IM (16:08)
[2025-02-26] MEDS: PNEUMOC 20-VAL CONJ-DIP CRM/PF 0.5 ML SYRINGE IM (16:10)
[2025-02-27] VITALS (10 sets, daily range): BP systolic 143–170; BP diastolic 53–88; PULSE 87–120; TEMP 36.7–37; O2SAT 94–98
[2025-02-27 05:17] LABS: Hematocrit 27.7 % (36.0-48.0); Hemoglobin 9.1 g/dL (12.0-16.0); Immature Granulocytes Abs Auto 0.06 10^3/uL (0.00-0.03); Immature Granulocytes Pct Auto 0.5 % (0.0-0.5); Lymphocytes Absolute Auto 0.9 10^3/uL (1.2-3.8); Mean Corpuscular HGB Conc 32.9 g/dL (29.9-35.2); Mean Corpuscular Hemoglobin 29.2 pg (26.7-34.0); Mean Corpuscular Volume 88.8 fL (81.0-99.0); Platelet Count 247 10^3/uL (150-450); Red Blood Count 3.12 10^6/uL (4.20-5.40); White Blood Count 13.2 10^3/uL (4.0-11.0)
[2025-02-27 05:41] LABS: Alanine Aminotransferase 18 U/L (14-59); Albumin Globulin Ratio 0.6; Albumin Level 2.4 g/dL (3.4-5.0); Alkaline Phosphatase 103 U/L (46-116); Anion Gap 11.4; Aspartate Amino Transferase 11 U/L (15-37); Blood Urea Nitrogen 16.0 mg/dL (7.0-18.0); Calcium 8.3 mg/dL (8.5-10.1); Carbon Dioxide 24.1 mmol/L (21.0-32.0); Chloride 106 mmol/L (98-107); Estimated GFR (African America >60 (>=60 mL/min/1.73m^2); Estimated GFR (Non-African Ame >60 (>=60 mL/min/1.73m^2); Globulin 4.0 g/dL; Glucose 150 mg/dL (74-106); Magnesium 1.7 mg/dL (1.8-2.4); Potassium 3.5 mmol/L (3.5-5.1); Sodium 138 mmol/L (136-145); Total Protein 6.4 g/dL (6.4-8.2)
--- NOTE | 2025-02-27 08:00 | ECG_ITS ---
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 Measurements Intervals [place] Rate: 80 P: 74 ME: 167 QRS: 10 QRSD: 100 T: 62 QT: 375 QTc: 434 Interpretive Statements SINUS RHYTHM WITH MARKED SINUS ARRHYTHMIA LOW QRS VOLTAGE IN EXTREMITY LEADS [QRS DEFLECTION < 0.5 mV IN LIMB LEADS] Abnormal ECG Compared to ECG 02/26/2025 09:36:21 Sinus tachycardia no longer present Electronically Signed On 02-27-2025 19:22:26 EST by LUIS REYES M.D.
--- NOTE | 2025-02-27 08:40 | CM.NOTE ---
Rounds made with Dr. Bailey, discussed plan of care with pt. Pt awaiting MRI for today. Pt inpatient status. PT and OT will evaluate pt today for discharge planning.
[2025-02-27] MEDS: IPRATROPIUM/ALBUTEROL SULFATE 3 ML AMPUL.NEB IH ×4 (10:05→22:50)
[2025-02-27] MEDS: SERTRALINE HCL 100 MG TABLET PO (10:20)
[2025-02-27] MEDS: PANTOPRAZOLE SODIUM 40 MG TABLET.DR PO (10:20)
[2025-02-27] MEDS: MAGNESIUM OXIDE 400 MG TABLET PO ×2 (10:20→21:13)
[2025-02-27] MEDS: CYCLOBENZAPRINE HCL 10 MG TABLET 5 MG PO ×3 (10:20→21:13)
[2025-02-27] MEDS: SENNOSIDES/DOCUSATE SODIUM 1 TAB TABLET PO (10:20)
[2025-02-27] MEDS: LOSARTAN POTASSIUM 50 MG TABLET 100 MG PO (10:20)
[2025-02-27] MEDS: CELECOXIB 100 MG CAPSULE PO (10:21)
[2025-02-27] MEDS: DILTIAZEM HCL 180 MG CAP.ER.24H PO (10:21)
[2025-02-27] MEDS: DILTIAZEM HCL 120 MG CAP.ER.24H PO (10:21)
--- NOTE | 2025-02-27 11:39 | SWNOTE1 ---
MEDARDO called pt's daughter, Terrie, who is the POA. Pt lives at home with her daughter. Pt's daughter does still work. Pt is not home alone for longer than 3-4 hours. Terrie did state that prior to this illness she was ambulating with her walker and was able to set up her own meds, washing herself up, etc. SW did ask her about pt going to rehab for a short term rehab stay to get stronger. Pt's daughter did state that pt's wishes are to not go to a nursing facility and to remain in the home. Daughter is going to respect those wishes. Daughter stated she will take some time off work if needed. SW asked if they were open to home health for short time and letting therapy come in to the home? Pt's daughter is agreeable to this. She does not have a preference on home health company at this time. At this time Terrie has no further questions. MEDARDO updated physical therapy and case management. Referral sent to [facility]. Referral included face sheet, ED note, H&P, provider notes, case management report, and PT/OT notes.
[2025-02-27] MEDS: 0.9 % SODIUM CHLORIDE 250 ML 10 ML IV (11:46)
--- NOTE | 2025-02-27 12:43 | P.PN_ITS ---
Progress Note: Subjective Subjective Interval history: Seen and evaluated this morning, she is currently laying in bed with the head of the bed elevated at roughly 55 degrees, she did have episode of nausea and emesis earlier this morning after she drank quite a bit of fluids, she says she feels better but then tells me she still having some pain in her neck. She is currently alert and oriented by 3 and she is able to identify her daughter's name rise yesterday, per the notes and per my discussion with the daughter she was unable to do this. Her story does seem to be a bit inconsistent, her main complaint is consistent with neck pain however it does seem to be intermittent. While having conversation with her she is seem to be moving her neck but when asked to do some specific things like sidebend to the right she says ow. I did call the daughter, Terrie this morning to update her on her condition. She continues to be quite worried about her mother, she has lots of questions about whether or not as she is septic. I did have a discussion with her about her mother's urinary tract infection and elevated white count. She does asked me to review her old records in regards to her urinary tract infection she was discharged previously on the wrong antibiotic and came back to the hospital a couple days afterwards very very sick. I reviewed records from June 2023 for an A-fib admission that she was discharged on Macrobid and then readmitted with sepsis secondary to urinary tract infection a couple days later however the daughter tells me that the admission she is referring to was before that and about 2 years ago. We only have records from as early as June 2023. I did review the 2 urine cultures we have from June 2023 with her. After the phone call I was able to review her previous records more thoroughly, her initial urine culture essentially was pansensitive Klebsiella with resistance to ampicillin on July 12, 2023, on readmission on the there was resistance to nitrofurantoin. Both of these showed sensitive to ceftriaxone, will discuss this with daughter when she comes to the hospital Exam Narrative Exam Narrative: General: Awake alert, she appears mildly uncomfortable due to some neck discomfort, she tells me she had some nausea earlier this morning. HEENT: head atraumatic, normocephalic, moist mucous membranes, pupils equal and reactive Neck: There is some intermittent tenderness to palpation on either her cervical spinous process or her splenius muscles, difficult to have a consistent physical exam. She was seen to move her neck in all planes of motion however when asked specifically to sidebend to the right she did elicit some discomfort with this. She was able to flex and extend her neck without difficulty. CVS: Increased rate, regular rhythm, no murmurs appreciated Respiratory: Diffuse bilateral expiratory wheeze GI: soft, nondistended, nontender, positive bowel sounds Extremity: moves all extremities, no restrictions of movements, no calf tenderness, no edema Neuro: AOx3, CN II-VII intact. Moves all extremities in all planes of motion. Skin: dry, intact no rashes or lesions Constitutional Vital Signs, click to edit/add: Last Vital Signs Temp 98.3 F 02/27/25 12:00 Pulse 106 H 02/27/25 12:00 Resp 18 02/27/25 12:00 BP 166/88 H 02/27/25 12:00 Pulse Ox 98 02/27/25 12:00 O2 Del Method Room Air 02/27/25 12:00 Progress Note: Objective Labs Labs: Short CBC 02/27/25 Range/Units 04:42 WBC 13.2 H (4.0-11.0) 10^3/uL Hgb 9.1 L (12.0-16.0) g/dL Hct 27.7 L (36.0-48.0) % Plt Count 247 (150-450) 10^3/uL BMP 02/27/25 04:42 Sodium 138 Potassium 3.5 Chloride 106 Carbon Dioxide 24.1 BUN 16.0 Creatinine 0.87 Glucose 150 H Calcium 8.3 L Liver Function 02/27/25 Range/Units 04:42 Total Bilirubin 0.6 (0.2-1.0) mg/dL AST 11 L (15-37) U/L ALT 18 (14-59) U/L Alkaline Phosphatase 103 (46-116) U/L Albumin 2.4 L (3.4-5.0) g/dL Progress Note: A&P Assessment and Plan (1) Acute UTI: Assessment and Plan: ? Continue ceftriaxone, 2 g every 24 hours ? Follow urine culture, we had not received this result yet ? Blood cultures currently pending ? Lactic acid normal on admission ? Monitor CBC, leukocytosis is currently trending towards normal ? She has been afebrile since admission ? CRP was elevated 18.24 this morning, we will trend this again tomorrow to assure it is heading the right direction ? As mentioned in the subjective portion of top of this note, I did review her old records from June 2023, both of her urine cultures grew Klebsiella, both of the cultures were sensitive to ceftriaxone. Will continue with the antibiotics as ordered pending her final urine culture from this admission. (2) Strain of neck muscle: Assessment and Plan: ? Unclear etiology, CT of the cervical spine shows no fracture or subluxation, degenerative changes were noted with heterogeneous enlargement of her left thyroid lobe. ? Exam is consistent with muscle spasm and some arthritis ? Will increase her cyclobenzaprine to 5 mg every 8 hours scheduled ? DC the NSAID as she has a history of CKD though her creatinine so for this admission has been normal ? MRI of her cervical spine is pending today ? There was some discussion of possible meningitis on admission, her mental status seems to be improving though this is still not ruled out entirely. ? Continue to hold her daily aspirin and Eliquis until meningitis is ruled out (3) Altered mental status: Assessment and Plan: ? She was well below her baseline on admission, I was not present to evaluate her yesterday however today she is alert and oriented by 3 and she knows her daughter's name which yesterday the daughter tells me she was not able to say her name. She is usually alert and able to hold a conversation with an occasional repetitiveness. ? Continue monitor daily (4) Hypomagnesemia: Assessment and Plan: ? 1.7 this morning, replenish and trend tomorrow morning (5) History of atrial fibrillation: Assessment and Plan: ? Her diltiazem was held on admission due to concerns for sepsis, her heart rate was trending up overnight and this morning as of noon it was 106 ? Continue her home dose of diltiazem ? Continue to hold Eliquis as mentioned above (6) Muscular deconditioning: Assessment and Plan: ? Now that she is improving with her mental status, PT OT was ordered ? Recommendations as of today are correction upon discharge (7) Nausea & vomiting: Assessment and Plan: ? 1 episode of emesis this morning after she had a couple drinks of juice and coffee ? Zofran as needed ? Monitor ? She did have some wheezing after this episode of emesis, she is saturating well on room air and not requiring any oxygenation ? DuoNebs scheduled (8) Thyroid nodule: Assessment and Plan: Seen on CT of her cervical spine, recommend outpatient follow-up Plan ? DVT prophylaxis addressed With SCDs ? Regular diet ? DNR CC, this was discussed and well-documented in the H&P Urinary Catheter Management Urinary Catheter Management Straight: Cath placed during this visit: yes Urethral indwelling: No Insertion date: 02/26/25
--- NOTE | 2025-02-27 13:00 | CM.NOTE ---
Important message From Medicare discussed with pt, pt verbalizes understanding and signs paper. Original given to pt and copy placed on pt's chart.
--- NOTE | 2025-02-27 14:02 | CM.NOTE ---
Dr. Bailey completed [facility] paperwork and CM gave to [facility] to scan into pt's chart.
--- NOTE | 2025-02-27 14:07 | CM.NOTE ---
Jay voss sent to Dr. Bailey on urine culture.
--- NOTE | 2025-02-27 14:32 | SWNOTE1 ---
SW called [facility] and spoke to Larisa and they have received the referral and are looking it over.
[2025-02-27] MEDS: POLYETHYLENE GLYCOL 3350 17 GM POWDER PACKET PO (15:50)
[2025-02-27] MEDS: OXYCODONE HCL 5 MG TABLET PO (19:35)
[2025-02-28] VITALS (10 sets, daily range): BP systolic 133–157; BP diastolic 60–73; PULSE 90–107; TEMP 36.6–36.8; O2SAT 92–97
--- NOTE | 2025-02-28 | MR_ITS ---
[address] [address] Patient Name: LEIA EWING MRN: [id number] date: 1950 Sex: F Assigned Patient Location: [place] Current Patient Location: [place] Accession/Order Number: [id number] Exam Date: 02/28/2025 11:15 Report Date: 02/28/2025 13:02 At the request of: YOVANA PERSON DO Procedure: MR head/brain wo/w con MR head/brain wo/w con 02/28/2025 12:20 PM SIGN AND SYMPTOMS: sepsis, AMS, neck pain. r/o meningitis PROTOCOL: Multiplanar multisequence MR images of the brain with and without contrast CONTRAST: 20 mL of intravenous Dotarem COMPARISON: 02/26/2025 FINDINGS: Extra axial spaces: There is age-related cortical atrophy. Hemorrhage: None. Ventricular system: Within normal limits. Basal cisterns: Within normal limits and not effaced. Cerebral parenchyma: T2 and T2 FLAIR hyperintense foci are noted in the periventricular and subcortical white matter suggesting chronic microvascular ischemic change. No abnormal postcontrast enhancement. Midline shift: None.. Cerebellum: Within normal limits. Brainstem: Within normal limits. OTHER: Calvarium: Normal marrow signal. Vascular system: Satisfactory flow voids within the anterior and posterior circulation. Visualized Paranasal sinuses: Within normal limits. Visualized Orbits: Within normal limits. Visualized upper cervical spine: Within normal limits. Sella and skull base: Within normal limits. MR/MR head/brain wo/w con IMPRESSION: No acute intracranial pathology or abnormal postcontrast enhancement. Chronic age-related neurodegenerative changes are noted as above. Impression dictated by: Justus Johnson M.D. 02/28/2025 1:02 PM Dictation Location: [place] [address] Electronically authenticated by: [id number] Y Date: 02/28/2025 13:02
[2025-02-28] MEDS: IPRATROPIUM/ALBUTEROL SULFATE 3 ML AMPUL.NEB IH ×5 (03:53→23:37)
[2025-02-28] MEDS: CYCLOBENZAPRINE HCL 10 MG TABLET 5 MG PO ×3 (05:41→22:01)
[2025-02-28] MEDS: PANTOPRAZOLE SODIUM 40 MG TABLET.DR PO (05:41)
[2025-02-28] MEDS: OXYCODONE HCL 5 MG TABLET PO (05:41)
[2025-02-28 05:43] LABS: Hematocrit 27.3 % (36.0-48.0); Hemoglobin 8.5 g/dL (12.0-16.0); Mean Corpuscular HGB Conc 31.1 g/dL (29.9-35.2); Mean Corpuscular Hemoglobin 28.0 pg (26.7-34.0); Mean Corpuscular Volume 89.8 fL (81.0-99.0); Platelet Count 268 10^3/uL (150-450); Red Blood Count 3.04 10^6/uL (4.20-5.40); White Blood Count 9.3 10^3/uL (4.0-11.0)
[2025-02-28 06:04] LABS: Anion Gap 12.1; Blood Urea Nitrogen 13.0 mg/dL (7.0-18.0); Calcium 8.7 mg/dL (8.5-10.1); Carbon Dioxide 24.3 mmol/L (21.0-32.0); Chloride 104 mmol/L (98-107); Estimated GFR (African America >60 (>=60 mL/min/1.73m^2); Estimated GFR (Non-African Ame >60 (>=60 mL/min/1.73m^2); Glucose 150 mg/dL (74-106); Magnesium 1.8 mg/dL (1.8-2.4); Potassium 3.4 mmol/L (3.5-5.1); Sodium 137 mmol/L (136-145)
--- NOTE | 2025-02-28 08:30 | CM.NOTE ---
Rounds made with Dr. Bailey, discussed plan of care with pt. Pt will have MRI brain today. Pt's discharge plan is home with [facility]. Pt lives with daughter.
[2025-02-28] MEDS: LORAZEPAM 1 MG TABLET 2 MG PO (09:47)
[2025-02-28] MEDS: MAGNESIUM OXIDE 400 MG TABLET PO ×2 (09:47→22:01)
[2025-02-28] MEDS: DILTIAZEM HCL 180 MG CAP.ER.24H PO (09:47)
[2025-02-28] MEDS: SERTRALINE HCL 100 MG TABLET PO (09:47)
[2025-02-28] MEDS: LOSARTAN POTASSIUM 50 MG TABLET 100 MG PO (09:47)
[2025-02-28] MEDS: DILTIAZEM HCL 120 MG CAP.ER.24H PO (09:47)
[2025-02-28] MEDS: SENNOSIDES/DOCUSATE SODIUM 1 TAB TABLET PO (09:47)
--- NOTE | 2025-02-28 10:50 | PM.PN ---
Progress Note: Subjective Subjective Interval history: Seen and evaluated this morning, she is currently sitting up in the chair, she did not get much sleep last night though she does report feeling better. She says her neck is still a little tender but she is able to move it in all directions, consistent with yesterday she says it has a little more stiffness when turning to the right or right sidebending. Exam Narrative Exam Narrative: General: Awake alert, she is sitting in the chair this morning, she appears much more comfortable than yesterday HEENT: head atraumatic, normocephalic, moist mucous membranes, pupils equal and reactive Neck: The tenderness noted yesterday was gone today, there is 0 tenderness to palpation of her spinous process or to her bilateral splenius muscles. She notes a little bit of discomfort with right sidebending and rotation however she cannot pinpoint exactly where this discomfort is. CVS: Increased rate, regular rhythm, no murmurs appreciated Respiratory: Lungs are CTA bilateral, no wheezes or rhonchi's. GI: soft, nondistended, nontender, positive bowel sounds Extremity: moves all extremities, no restrictions of movements, no calf tenderness, no edema Neuro: AOx3, CN II-VII intact. Moves all extremities in all planes of motion. Skin: dry, intact no rashes or lesions Constitutional Vital Signs, click to edit/add: Last Vital Signs Temp 97.9 F 02/28/25 07:44 Pulse 92 H 02/28/25 07:47 Resp 18 02/28/25 07:44 BP 138/60 02/28/25 07:44 Pulse Ox 95 02/28/25 07:47 O2 Del Method Room Air 02/28/25 07:47 Progress Note: Objective Labs Labs: Short CBC 02/28/25 Range/Units 04:46 WBC 9.3 (4.0-11.0) 10^3/uL Hgb 8.5 L (12.0-16.0) g/dL Hct 27.3 L (36.0-48.0) % Plt Count 268 (150-450) 10^3/uL BMP 02/28/25 04:46 Sodium 137 Potassium 3.4 L Chloride 104 Carbon Dioxide 24.3 BUN 13.0 Creatinine 0.90 Glucose 150 H Calcium 8.7 Progress Note: A&P Assessment and Plan (1) Acute UTI: Assessment and Plan: ? Continue ceftriaxone, 2 g every 24 hours, last dose planning for today and then will likely switch to p.o. option. Probably Augmentin. And discharge preparation. ? Pending final urine culture, prelim results note E. coli which are different than her Klebsiella from prior admissions in the past. ? Blood cultures currently pending ? White blood cell count normalized today ? She has been afebrile since admission ? CRP trended down this morning to 12 (2) Strain of neck muscle: Assessment and Plan: ? Unclear etiology, CT of the cervical spine shows no fracture or subluxation, degenerative changes were noted with heterogeneous enlargement of her left thyroid lobe. ? MRI performed cervical spine yesterday, limited view secondary to patient moving around however what was able to be visualized showed no evidence of disc issue, epidural abscess, or other acute processes. ? Exam improved today ? Continue cyclobenzaprine to 5 mg every 8 hours scheduled, plan to discharge her on a 10-day course of this ? There was some discussion of possible meningitis on admission, her mental status seems to be improving though this is still not ruled out entirely. MRI brain with contrast ordered for today ? Continue to hold her daily aspirin and Eliquis until meningitis is ruled out (3) Altered mental status: Assessment and Plan: ? Likely secondary to urinary tract infection, improved. Son and daughter were present at bedside yesterday and stated she is back to her baseline (4) Hypomagnesemia: Assessment and Plan: Resolved, trend and replenish as necessary (5) History of atrial fibrillation: Assessment and Plan: ? Her diltiazem was held on admission due to concerns for sepsis, her heart rate was trending up overnight and this morning as of noon it was 106 ? Continue her home dose of diltiazem ? Continue to hold Eliquis as mentioned above, plan to resume upon discharge (6) Muscular deconditioning: Assessment and Plan: ? Now that she is improving with her mental status, PT OT was ordered ? Planning to go home upon discharge (7) Nausea & vomiting: Assessment and Plan: Resolved (8) Thyroid nodule: Assessment and Plan: Seen on CT of cervical spine, outpatient follow-up Plan ? DVT prophylaxis with SCDs ? Regular diet ? DNR CC, well-documented in the H&P Urinary Catheter Management Urinary Catheter Management Straight: Cath placed during this visit: yes Urethral indwelling: No Insertion date: 02/26/25
--- NOTE | 2025-02-28 10:58 | SWNOTE1 ---
MEDARDO called [facility] and they have accepted.
--- NOTE | 2025-02-28 11:29 | REH.PTDLY ---
Physical Therapy Daily Note PT Daily Note/Assess Start: 02/27/25 10:36 Freq: Status: Active Protocol: Document 02/28/25 11:23 [email or web address] (Rec: 02/28/25 11:29 [id number] Physical Therapy Daily Note/Assessment Time In 10:21 Time Out 10:35 Pain Level 0 Pain Level 0 Subjective Up in chair, pt reports she is tired and didn't sleep well last night. Agreeable to therapy, but wants to go back to bed after. Therapeutic Exercise 6 Minutes (minutes) Therapeutic Exercise 0 Units Therapeutic Exercise Pt performs Dylon LE seated exs 10x ea for improved Treatment strength with cues to keep pt on task. Exs included AP, LAQ, marching, and hip add squeeze Therapeutic Activity 8 Minutes (minutes) Therapeutic Activity 1 Units Therapeutic Activity Sit to stand transfers from chair with pt slow to Comments perform, but able to SBA. Gait training with RW CGA 35 feet with cues for pt to keep RW close to her. Pt continues to have ataxic gait pattern. Instructed in sit to stand transfers from side of bed 5x with pt using bed rail to push up from. Total Therapy 14 Minutes Total Physical 1 Therapy Units Daily Note Summary Pt continues to report throughout rx that she is fatigued. Limited gait distance due to this. Pt is able to perform transfers at slower pace with only SBA. Pt does need cues with gait for safety concerns using RW. Pt's plan is to return home with where she lives with daughter.
--- NOTE | 2025-02-28 12:37 | CM.NOTE ---
CM called Dr. Wyatt office to schedule f/u appt for pt. Message left at office, awaiting return call with appt date and time.
--- NOTE | 2025-02-28 15:22 | SWNOTE1 ---
MEDARDO faxed updated physician note and PT note from today to [facility].
--- NOTE | 2025-02-28 16:26 | OT.DAILY ---
Occupational Therapy Daily Note OT Inpatient Daily Visit Note Start: 02/27/25 11:38 Freq: Status: Active Protocol: Document 02/28/25 16:20 [id number] (Rec: 02/28/25 16:26 [id number]) OT Visit Details Time In/Time Out Time In 16:07 Time Out 16:19 OT Treatment Plan Subjective Subjective Pt oriented to self and place, agreeable to participate . Reports shortness of breath and fatigue. Pt reports I want to get better . Objective Objective [id number] on EOB with Min A and 1-3 VCs for hand placement. Able to maintain BELINDA sitting on EOB, denies dizziness or nausea. Completed 3x [id number] transfers from EOB to walker, Mod A and 1-3 cues for safety techniques. Standing tolerance 30-60sec. Assessment Assessment Pt agreeable and cooperative with all tasks. Talkative, slow to respond with confusion. Continue OT POC. Plan Plan Continue OT POC to meet goals. Short Term Goals STG 1 Patient will be able to ambulated to the bathroom using WW and complete toileting with SBA or better. STG 2 Patient will be able to complete LB dressing with CGA or better. STG 3 Patient will be able to complete bilateral UE AROM exercises to all planes for 10-15 reps to improve general strength. OT Manufacturing Technology Analyst Timed Codes Therapeutic activity 12 minutes (minutes) Therapeutic activity 1 units
[2025-03-01] VITALS: BP 159/79; PULSE 106; TEMP 36.3; O2SAT 97
[2025-03-01] MEDS: IPRATROPIUM/ALBUTEROL SULFATE 3 ML AMPUL.NEB IH ×2 (02:59→06:59)
[2025-03-01 03:01] VITALS: PULSE 107; O2SAT 97
[2025-03-01 04:00] VITALS: BP 153/65; PULSE 112; TEMP 37.1; O2SAT 96
[2025-03-01] MEDS: PANTOPRAZOLE SODIUM 40 MG TABLET.DR PO (05:32)
[2025-03-01] MEDS: CYCLOBENZAPRINE HCL 10 MG TABLET 5 MG PO (05:33)
[2025-03-01 05:51] LABS: Hematocrit 27.3 % (36.0-48.0); Hemoglobin 8.6 g/dL (12.0-16.0); Mean Corpuscular HGB Conc 31.5 g/dL (29.9-35.2); Mean Corpuscular Hemoglobin 28.7 pg (26.7-34.0); Mean Corpuscular Volume 91.0 fL (81.0-99.0); Platelet Count 298 10^3/uL (150-450); Red Blood Count 3.00 10^6/uL (4.20-5.40); White Blood Count 9.6 10^3/uL (4.0-11.0)
[2025-03-01 07:00] VITALS: BP 163/82; PULSE 125; TEMP 36.3; O2SAT 97
[2025-03-01 07:02] VITALS: PULSE 110; O2SAT 95
--- NOTE | 2025-03-01 09:00 | OT.DAILY ---
Occupational Therapy Daily Note OT Inpatient Daily Visit Note Start: 02/27/25 11:38 Freq: Status: Active Protocol: Document 03/01/25 08:51 [id number] (Rec: 03/01/25 09:00 [id number]) OT Visit Details Time In/Time Out Time In 08:20 Time Out 08:40 OT Treatment Plan Subjective Subjective Pt awake and alert upon arrival, agreeable to participate. Reports she is fine but did not sleep well. Objective Objective Sitting up in bed with set-up of supplies Pt completed oral hygiene with good sequencing and executive functioning. Agreeable to self-care tasks, Pt able to wash UB and trunk w/o assist. Good crossing midline and reaching outside BELINDA. Pt required 1x break during task due to SOB. Pt not wearing oxygen at this time. Good use of supplies Pt completed hair hygiene, following by combing. Application of anti-perspirant with appropriate location under arms. Denies the need for LB bathing or self-care at this time. Assessment Assessment Pt tolerated treatment well. Cooperative with tasks and talkative. Requires 1-3 VCs to execute tasks. Pt left in bed, call light within reach. Patient Education Patient Education Educated to continue with self-hygiene motivation and role of therapy. Plan Plan Continue OT POC. Short Term Goals STG 1 Patient will be able to ambulated to the bathroom using WW and complete toileting with SBA or better. STG 2 Patient will be able to complete LB dressing with CGA or better. STG 3 Patient will be able to complete bilateral UE AROM exercises to all planes for 10-15 reps to improve general strength. OT Team Primary Care Physician Timed Codes Self-Alf 20 Management minutes ( minutes) Self-Alf 1 Management units
[2025-03-01] MEDS: SERTRALINE HCL 100 MG TABLET PO (09:14)
[2025-03-01] MEDS: LOSARTAN POTASSIUM 50 MG TABLET 100 MG PO (09:15)
[2025-03-01] MEDS: DILTIAZEM HCL 180 MG CAP.ER.24H PO (09:15)
[2025-03-01] MEDS: SENNOSIDES/DOCUSATE SODIUM 1 TAB TABLET PO (09:15)
[2025-03-01] MEDS: DILTIAZEM HCL 120 MG CAP.ER.24H PO (09:15)
[2025-03-01] MEDS: MAGNESIUM OXIDE 400 MG TABLET PO (09:16)
--- NOTE | 2025-03-01 10:00 | CM.NOTE ---
Rounds made with Dr. Bailey, discussed plan of care with pt. Pt will discharge home with [facility] today. Pt lives with daughter.
--- NOTE | 2025-03-01 12:29 | SWNOTE1 ---
Pt is stable for discharge today. MEDARDO stopped in and spoke with daughter and pt in room. MEDARDO let them know that [facility] should call within 48 hours of discharge. Daughter did request that she be the one that is called to coordinate. MEDARDO to let [facility] know this information. At this time no further questions. Pt is going home with [facility]. MEDARDO faxed over CRF, dc med rec, and PT/OT from today.
--- NOTE | 2025-03-01 12:56 | NUTR.NU ---
Pt w/good PO intakes of regular diet. Pt feels ?much better? and is discharging to home today w/home health services and daughter?s assistance. No dietary needs at this time.
--- NOTE | 2025-03-01 14:48 | P.DS_ITS ---
DS: Providers Provider Date of admission: 02/26/25 12:50 Primary care physician: ASIA ROBBINS Consults: 02/26/25 12:39 Occupational Therapy Eval and Treat Routine Reason for consultation: Weakness Physical Therapy Eval and Treat Routine Reason for consultation: Weakness Discharging clinician: YOVANA PERSON Anticipated date of discharge: 03/01/25 DS: Diagnosis Discharge Diagnosis (1) Acute UTI: (2) Strain of neck muscle: (3) Altered mental status: (4) Hypomagnesemia: (5) History of atrial fibrillation: (6) Muscular deconditioning: (7) Nausea & vomiting: (8) Thyroid nodule: DS: Summary Hospital Course Hospital Course: Miss Almeida is a 74-year-old female who was admitted to the hospital the afternoon of February 26 complaint of delirium brought in by the daughter who is her POA. The patient has a history of dementia although at baseline she is alert and oriented by 3 and is communicative, she has apparently been complaining of some worsening neck pain and suddenly became quite confused. Initial workup in the emergency room was notable for urinary tract infection, there was some concern for meningitis. Please see H&P, my partner had a long discussion with the daughter about an LP, at that point in time LP was refused and they requested further workup with imaging. CT of the neck was performed and showed some arthritic changes with no acute fractures, MRI of the neck without contrast was ordered and ruled out any disc pathology. The patient was treated with IV antibiotics and she improved quite quickly with her mental status, upon my first day seeing her on February 27 the son was present and noted that she seemed back to baseline for him. I did speak with the daughter, it turns out roughly a year and a half ago she was admitted and was given the wrong antibiotics for a UTI and the daughter was very concerned about that. I did review the prior cultures with her and also the medical records that she brought in and was able to assure her that she is on a correct antibiotics based on her prior culture, when her current urine culture returned with E. coli it did show a sensitive ceftriaxone and I showed the daughter again that she was on the correct antibiotic for this bacteria as well. MRI of the head was performed to rule out meningitis, there is no evidence of any acute process or meningeal enhancement on MRI. The patient was back to her baseline the morning of the #12, I spoke with the daughter who is comfortable taking her home, she will receive a prescription for Augmentin to take for 2 more days. Her CODE STATUS was confirmed to be DNR CC this admission, the daughter, Terrie is her POA and has all the paperwork. She did approach me in the hallway of the morning of discharge to ask if this would affect her long-term prognosis with her dementia, I did say that it was unlikely given that she responded quite well to antibiotics and she appeared to be very close to her baseline though there is no guarantee. The daughter was appreciative of this conversation. Time Spent with Patient Time attestation: Total time spent providing and/or coordinating discharge services: Exam Narrative Exam Narrative: General: Awake alert, she is sitting in the chair this morning, she appears much more comfortable than yesterday HEENT: head atraumatic, normocephalic, moist mucous membranes, pupils equal and reactive Neck: The tenderness noted yesterday was gone today, there is 0 tenderness to palpation of her spinous process or to her bilateral splenius muscles. She notes a little bit of discomfort with right sidebending and rotation however she cannot pinpoint exactly where this discomfort is. CVS: Increased rate, regular rhythm, no murmurs appreciated Respiratory: Lungs are CTA bilateral, no wheezes or rhonchi's. GI: soft, nondistended, nontender, positive bowel sounds Extremity: moves all extremities, no restrictions of movements, no calf tenderness, no edema Neuro: AOx3, CN II-VII intact. Moves all extremities in all planes of motion. Skin: dry, intact no rashes or lesions Constitutional Vital Signs, click to edit/add: Last Vital Signs Temp 97.4 F L 03/01/25 07:00 Pulse 110 H 03/01/25 07:02 Resp 16 03/01/25 07:02 BP 163/82 H 03/01/25 07:00 Pulse Ox 95 03/01/25 07:02 O2 Del Method Room Air 03/01/25 07:02 DS: Data Data Completed and Pending Labs on day of discharge: Labs from last 24 hours 03/01/25 05:21 WBC 9.6 RBC 3.00 L Hgb 8.6 L Hct 27.3 L MCV 91.0 MCH 28.7 MCHC 31.5 RDW 14.4 Plt Count 298 MPV 10.1 Preliminary micro results at discharge 02/26/25 12:47 Blood Culture Result 2 - Preliminary Blood - Left Forearm NO GROWTH AT 36-48 HOURS. FINAL TO FOLLOW. 02/26/25 12:38 Blood Culture Result 1 - Preliminary Blood - Right Antecubital NO GROWTH AT 36-48 HOURS. FINAL TO FOLLOW. 02/26/25 09:24 Urine Culture - Preliminary Urine,Clean Catch Pending - Specimen sent to [facility] Discharge Plan Discharge Disposition: Home Health Service Condition: Fair Discharge Medications: New amoxicillin-pot clavulanate [Augmentin] 500-125 mg tablet 1 tab PO BID Qty: 4 0RF Continued sertraline 100 mg tablet 100 mg PO Q24H atorvastatin 80 mg tablet 80 mg PO DAILY calcium carbonate [Antacid (calcium carbonate)] 200 mg calcium (500 mg) tablet,chewable 200 mg PO DAILY gabapentin 600 mg tablet 600 mg PO .QHS nitroglycerin 0.4 mg tablet, sublingual 0.4 mg sublingual Q5M Rx Instructions: do not exceed 3 doses per episode omeprazole 20 mg capsule,delayed release(DR/EC) 20 mg PO DAILY losartan 100 mg tablet 100 mg PO DAILY montelukast 10 mg tablet 10 mg PO DAILY diltiazem HCl 300 mg Capsule,Extended Release 24hr 300 mg PO QD 30 Days Qty: 30 0RF Eliquis 5 mg Tablet 5 mg PO BID 30 Days Qty: 60 0RF magnesium oxide 400 mg (241.3 mg magnesium) Tablet 400 mg PO BID Qty: 60 11RF aspirin 81 mg capsule 81 mg PO .2 times per week celecoxib [Celebrex] 50 mg capsule 50 mg PO BID albuterol nebulizer 2.5 mg inhalation .Q6HR PRN (Reason: shortness of breath or wheezing) albuterol 90 mcg/actuation aerosol 90 mcg inhalation TID Rx Instructions: 2 PUFFS EACH TIME ascorbic acid (vitamin C) 500 mg capsule 500 mg PO DAILY metoprolol succinate 50 mg tablet extended release 24 hr 25 mg PO DAILY oxybutynin chloride 5 mg tablet 5 mg PO .AMHS Activity: ambulate only with your walker Diet: advance to your usual diet Print Language: Italian Patient Instructions: Amoxicillin (By mouth), Urinary Tract Infection in Women (DC), Altered Mental Status (ED), Urinary Tract Infection in Older Adults (DC) Transmission Specialist/Magazine Worker Instructions: Discharge with [facility]. They should contact you within 48 hours of discharge. If you do not hear from them within 48 hours, please call [phone]. Forms: Portal Instructions Follow Up Appointments: Dr. Robbins ThursdayMarch 06 2:30 Discharge Date/Time: 03/01/25 11:09 Discharge location: home with [facility]
--- NOTE | 2025-03-02 10:53 | CM.NOTE ---
Addendum entered by Lvoe Galvez 03/02/25 10:55: [place] txt also sent to Trini Leonardo with update. Original Note: [facility] called and need demographics faxed with pt's clinical. Information that was sent originally did not have any demographics attached. Faxed clinical with demographic sheet to [facility] [phone].
--- NOTE | 2025-03-02 11:46 | CM.DCFOLLOWU ---
Person spoke with:Pt's daughter Terrie How are you feeling?she is doing well How is your pain?none Did you understand your discharge instructions?yes Do you have any questions about your discharge instructions? no Were you given any prescriptions at discharge?yes Were you able to get your prescriptions filled?yes Do you understand how to take your medications as ordered? yes Do you have any questions about your follow up appointment and do you plan to keep your follow up appointment? reviewed follow up. SW did get a call from Marge at [facility] and her benefits are out of network and marge is looking for a new company. Marge spoke to daughter, Terrie and updated her. Is there anything else that you would like to discuss? no Questions/Comments/Concerns/Other:none
--- NOTE | 2025-03-02 11:55 | SWNOTE1 ---
MEDARDO did receive call from Marge at [facility] and she voiced apologies as they ran the benefits and found out she is not in network. Marge stated she was a past patient and thought she had the same insurance. Marge will coordinate and find her a new home health company. Marge will contact the pt or daughter. MEDARDO did call pt's daughter, Terrie, and she confirmed Marge did call her.
== END 2025-03-01 11:09 | disposition home health service (06) | DRG 872 ==
LOC: ER 12:18 → MS 12:56
PROVIDERS: Internal Medicine; Admitting Provider Internal Medicine; Emergency Provider Student in an Organized Health Care Education/Training Program; PCP Family Medicine; Visit Provider Internal Medicine
DX: A41.51 Sepsis due to Escherichia coli [E. coli] (principal); N39.0 Urinary tract infection, site not specified; F05 Delirium due to known physiological condition; E04.9 Nontoxic goiter, unspecified; F03.90 Unspecified dementia, unspecified severity, without behavioral disturbance, psychotic disturbance, mood disturbance, and anxiety; S16.1XXA Strain of muscle, fascia and tendon at neck level, initial encounter; E83.42 Hypomagnesemia; I10 Essential (primary) hypertension; I25.10 Atherosclerotic heart disease of native coronary artery without angina pectoris; J45.909 Unspecified asthma, uncomplicated; Z66 Do not resuscitate; E78.5 Hyperlipidemia, unspecified; Z53.29 Procedure and treatment not carried out because of patient's decision for other reasons; X58.XXXA Exposure to other specified factors, initial encounter; I25.2 Old myocardial infarction; Z87.440 Personal history of urinary (tract) infections; Z96.649 Presence of unspecified artificial hip joint; Z79.01 Long term (current) use of anticoagulants; Z79.899 Other long term (current) drug therapy; Z79.82 Long term (current) use of aspirin
CPT/HCPCS: 36415; 70450; 70553; 71045; 72125; 72141; 74177; 76376; 80048; 80053; 81001; 83605; 83735; 84100; 84484; 85007; 85025; 85027; 86140; 87040; 87086; 87088; 87186; 90662; 90677; 93005; 94640; 96361; 96365; 96375; 96376; 97161; 97165; 97530; 97535; 99285; A9575; J0696; J1171; Q9967